=== PATIENT | female | born 1950 | race Caucasian/White ===

== ENCOUNTER → 2017-07-29 | Outpatient (CLI) | payer MEDICARE, OTHER ==
--- NOTE | 2017-07-29 16:26 | US ---
EXAMINATION TYPE: US kidneys/renal and bladder DATE OF EXAM: 07/29/2017 COMPARISON: NONE CLINICAL HISTORY: Chronic Kidney Disease Stage 3 N18.3; diabetic EXAM MEASUREMENTS: Right Kidney: 10.1 x 5.6 x 4.0 cm Left Kidney: 10.0 x 5.4 x 4.1 cm Post Void Residual Volume: 0.8 mL Right Kidney: lateral mid pole cortical cyst = 0.6 x 0.6 x 0.5cm Left Kidney: medial mid pole cyst = 1.3 x 0.9 x 0.8cm Bladder: not fully distended Bilateral Jets seen: Yes Normal Post Void Residual: Yes There is no evidence for hydronephrosis at this point in time. No nephrolithiasis is seen. The urina ry bladder is anechoic. Bilateral ureteral jets are seen. Cortical medullary differentiation is maintained. No cortical thinning. IMPRESSION: Bilateral renal cysts without sonographic evidence of medical renal disease.
== END | disposition home or self-care (01) ==
LOC: RADUSWWP 15:37
PROVIDERS: ATTEND Internal Medicine Nephrology
DX: N28.1 Cyst of kidney, acquired (principal); N18.3 Chronic kidney disease, stage 3 (moderate)
CPT/HCPCS: 76770

== ENCOUNTER → 2018-04-13 | Outpatient (CLI) | payer MEDICARE, OTHER ==
--- NOTE | 2018-04-13 15:55 | US ---
EXAMINATION TYPE: US kidneys/renal and bladder DATE OF EXAM: 04/13/2018 COMPARISON: US 07/29/2017 CLINICAL HISTORY: N18.3 chronic kidney disease stage 3. Chronic kidney disease EXAM MEASUREMENTS: Right Kidney: 10.4 x 4.8 x 5.4 cm Left Kidney: 9.2 x 4.3 x 5.1 cm Right Kidney: no evidence of hydro, small probable cyst as seen on prior= 0.7 x 0.6 x 0.6 cm . Cortic al medullary differentiation is diminished. There is mild cortical thinning. Left Kidney: No evidence of hydro, cyst mid/medial as seen on prior= 1.4 x 0.8 x 1.2 cm. Cortical med ullary differentiation is diminished. There is mild cortical thinning. Bladder: wnl Bilateral Jets seen: Yes There is no evidence for hydronephrosis at this point in time. No nephrolithiasis is seen. The urina ry bladder is anechoic. Bilateral ureteral jets are seen. IMPRESSION: 1. No hydronephrosis or nephrolithiasis. 2. Sonographic sequela of medical renal disease, left renal cyst and probable right renal cyst as see n on the prior exam, similar in size.
== END | disposition home or self-care (01) ==
LOC: RADUSWWP 12:44
PROVIDERS: ATTEND Internal Medicine Nephrology
DX: N28.1 Cyst of kidney, acquired (principal); N18.3 Chronic kidney disease, stage 3 (moderate)
CPT/HCPCS: 76770

== ENCOUNTER → 2020-08-13 | Outpatient (CLI) | payer MEDICARE, OTHER ==
--- NOTE | 2020-08-13 14:00 | XR ---
Left foot HISTORY: Pain 3 views the left foot There is mild medial angulation of the first digit at the metatarsophalangeal joint. Bone mineralizat ion is mildly reduced. Mild joint space loss at the metatarsophalangeal joint with some hypertrophic change. No fracture or dislocation. IMPRESSION: Osteoarthritic changes.
== END | disposition home or self-care (01) ==
LOC: RADXRMAIN 10:38
PROVIDERS: ATTEND Podiatrist Foot Surgery
DX: M19.072 Primary osteoarthritis, left ankle and foot (principal); M20.32 Hallux varus (acquired), left foot

== ENCOUNTER 2020-10-13 14:24 | Inpatient (IN) | payer MEDICARE, OTHER ==
[2020-10-13] MEDS ORDERED: ACETAMINOPHEN TAB 500 MG TAB PO STA (15:24)
[2020-10-13] MEDS ORDERED: ALBUTEROL HFA INHALER INHALATION STA (15:24)
[2020-10-13] MEDS ORDERED: SODIUM CHLORIDE 0.9% 500 ML 500 ML IV STA (15:25)
[2020-10-13] MEDS ORDERED: SODIUM CHLORIDE 0.9% 1,000 ML IV STA (15:25)
[2020-10-13] MEDS ORDERED: IBUPROFEN 800 MG TAB PO STA (15:25)
--- NOTE | 2020-10-13 15:29 | ED ---
Fever HPI - General Chief Complaint: Shortness of Breath Stated Complaint: Fever,SOB Time Seen by Provider: 10/13/20 15:20 Source: patient, RN notes reviewed, old records reviewed Mode of arrival: ambulatory Limitations: no limitations - History of Present Illness Initial Comments: This is a 70-year-old female DF for evaluation. Patient sent in today for 2-3 days of fever increasing weakness body aches and pains also shortness of breath and cough cough has been increasing. Patient's is a known covert positive. Ptient has history of CA, HTN, Hypercholesteremia. MD Complaint: fever, malaise, weakness Temperature Source: subjective Context: multiple patients with similar symptoms Associated Symptoms: chills, rigors, myalgias, cough Treatments Prior to Arrival: Acetaminophen, Ibuprofen - Related Data Home Medications Medication Instructions Recorded Confirmed Atorvastatin Calcium [Lipitor] 20 mg PO HS 05/03/14 04/12/16 FLUoxetine HCL [PROzac] 40 mg PO DAILY 05/03/14 04/12/16 Fenofibrate Nanocrystallized 145 mg PO DAILY 05/03/14 04/12/16 [Tricor] Mesalamine [Delzicol] 800 mg PO TID 05/03/14 04/12/16 Metoprolol Succinate [Toprol XL] 25 mg PO DAILY 05/03/14 04/12/16 OLANZapine [ZyPREXA] 5 mg PO BID 05/03/14 04/12/16 Triamterene-Hctz 37.5-25Mg 1 each PO DAILY 05/03/14 04/12/16 [Dyazide 37.5-25 Capsule] clonazePAM [KlonoPIN] 0.5 mg PO TID 05/03/14 04/12/16 glipiZIDE [Glucotrol] 10 mg PO AC-BID 05/03/14 04/12/16 metFORMIN HCL [Glucophage] 500 mg PO BID 11/26/14 04/12/16 Ergocalciferol [Vitamin D2 50,000 unit PO QMONTH 12/06/14 04/12/16 (DRISDOL)] Magnesium 400 mg PO DAILY 12/06/14 04/12/16 Cinacalcet [Sensipar] 30 mg PO WEEKLY 12/31/15 04/12/16 Multivitamins, Thera [Multivitamin] 1 tab PO DAILY 12/31/15 04/12/16 Insulin Glargine [Lantus] 16 unit SQ BID 04/12/16 04/12/16 Allergies Allergy/AdvReac Type Severity Reaction Status Date / Time No Known Allergies Allergy Verified 04/12/16 09:35 Review of Systems ROS Statement: Those systems with pertinent positive or pertinent negative responses have been documented in the HPI. ROS Other: All systems not noted in ROS Statement are negative. Past Medical History Past Medical History: Cancer, Diabetes Mellitus, Eye Disorder, Hyperlipidemia, Hypertension Additional Past Medical History / Comment(s): HX COLITIS, BREAST CANCER, GLASSES DAILY USE History of Any Multi-Drug Resistant Organisms: None Reported Past Surgical History: Breast Surgery, Cholecystectomy, Hysterectomy, Joint Replacement Additional Past Surgical History / Comment(s): 12/06/14 Total L knee arthroplasty. ADIS MASTECTOMY Past Anesthesia/Blood Transfusion Reactions: No Reported Reaction Past Psychological History: Anxiety, Depression Past Alcohol Use History: None Reported Past Drug Use History: None Reported - Past Family History Sister(s) Family Medical History: Myocardial Infarction ([place]) Additional Family Medical History / Comment(s): TWO SISTERS HAD AN [place] Father Family Medical History: Cancer Additional Family Medical History / Comment(s): Father of stomach cancer. Mother Family Medical History: COPD Additional Family Medical History / Comment(s): Mother of emphysema. General Exam Limitations: no limitations General appearance: alert, in no apparent distress Head exam: Present: atraumatic, normocephalic, normal inspection Eye exam: Present: normal appearance, PERRL, EOMI. Absent: scleral icterus, conjunctival injection, periorbital swelling ENT exam: Present: normal exam, mucous membranes moist Neck exam: Present: normal inspection. Absent: tenderness, meningismus, lymphadenopathy Respiratory exam: Present: normal lung sounds bilaterally, respiratory distress, decreased breath sounds, prolonged expiratory. Absent: wheezes, rales, rhonch i, stridor Cardiovascular Exam: Present: normal rhythm, tachycardia, normal heart sounds. Absent: systolic murmur, diastolic murmur, rubs, gallop, clicks GI/Abdominal exam: Present: soft, normal bowel sounds. Absent: distended, tenderness, guarding, rebound, rigid Extremities exam: Present: normal inspection, full ROM, normal capillary refill. Absent: tenderness, pedal edema, joint swelling, calf tenderness Back exam: Present: normal inspection Neurological exam: Present: alert, oriented X3, CN II-XII intact Psychiatric exam: Present: normal affect, normal mood Skin exam: Present: warm, dry, intact, normal color. Absent: rash Course Vital Signs 10/13/20 10/13/20 10/13/20 14:25 16:17 16:25 Temperature 103.1 F H Pulse Rate 114 H 96 Respiratory 18 22 20 Rate Blood Pressure 145/79 110/67 O2 Sat by Pulse 89 L 93 L Oximetry - Reevaluation(s) Reevaluation #1: 10/13/20 16:35 medical record is reviewed Reevaluation #2: 10/13/20 16:35 patient is in no respiratory distress Reevaluation #3: 10/13/20 16:35 spoke w patient re results and findins, questions answered - Consultations Consultation #1: spoke w Dr Rodriguez re admission and he is agreeable Medical Decision Making - Medical Decision Making 70 female DF for evaluation. Patient Dese for evaluation of shortness of breath and persistent fevers does have coronavirus. Patient has borderline oxygen in the 90s, will admit for coronavirus - Lab Data Result diagrams: 10/13/20 16:00 10/13/20 16:00 Lab Results 10/13/20 10/13/20 Range/Units 16:00 16:00 WBC 4.4 (3.8-10.6) k/uL RBC 4.77 (3.80-5.40) m/uL Hgb 13.5 (11.4-16.0) gm/dL Hct 41.7 (34.0-46.0) % MCV 87.3 (80.0-100.0) fL MCH 28.2 (25.0-35.0) pg MCHC 32.3 (31.0-37.0) g/dL RDW 13.8 (11.5-15.5) % Plt Count 373 (150-450) k/uL MPV 6.9 Neutrophils % 72 % Lymphocytes % 18 % Monocytes % 7 % Eosinophils % 0 % Basophils % 1 % Neutrophils # 3.2 (1.3-7.7) k/uL Lymphocytes # 0.8 L (1.0-4.8) k/uL Monocytes # 0.3 (0-1.0) k/uL Eosinophils # 0.0 (0-0.7) k/uL Basophils # 0.1 (0-0.2) k/uL Sodium 134 L (137-145) mmol/L Potassium 4.2 (3.5-5.1) mmol/L Chloride 95 L (98-107) mmol/L Carbon Dioxide 28 (22-30) mmol/L Anion Gap 11 mmol/L BUN 38 H (7-17) mg/dL Creatinine 1.56 H (0.52-1.04) mg/dL Est GFR (CKD-EPI)AfAm 38 (>60 ml/min/1.73 sqM) Est GFR (CKD-EPI)NonAf 33 (>60 ml/min/1.73 sqM) Glucose 334 H (74-99) mg/dL Calcium 9.9 (8.4-10.2) mg/dL Magnesium 1.5 L (1.6-2.3) mg/dL Total Bilirubin 0.5 (0.2-1.3) mg/dL AST 36 (14-36) U/L ALT 15 (4-34) U/L Alkaline Phosphatase 58 (38-126) U/L Lactate Dehydrogenase 672 H (313-618) U/L C-Reactive Protein 76.4 H (<10.0) mg/L Total Protein 7.4 (6.3-8.2) g/dL Albumin 4.2 (3.5-5.0) g/dL - EKG Data -: EKG Interpreted by Me (EKG shows sinus tachycardia 110 AL 154 QRS 104 QTc 479) - Radiology Data Radiology results: report reviewed (CXR is negative for acute disease, CTa is pending), image reviewed Disposition Clinical Impression: Fever, Coronavirus infection, Weakness Disposition: ADMITTED IP TO THIS HOSP Condition: Fair Is patient prescribed a controlled substance at d/c from ED?: No Referrals: Cabrera Persaud DO [Primary Care Provider] - 1-2 days
[2020-10-13 16:10] LABS: Basophils # (A) 0.1 k/uL (0-0.2); Basophils % (A) 1 %; Eosinophils % (A) 0 %; HCT 41.7 % (34.0-46.0); HGB 13.5 gm/dL (11.4-16.0); Lymphocytes # (A) 0.8 k/uL (1.0-4.8); Lymphocytes % (A) 18 %; MCH 28.2 pg (25.0-35.0); MCHC 32.3 g/dL (31.0-37.0); MCV 87.3 fL (80.0-100.0); Mean Platelet Volume 6.9; Monocytes # (A) 0.3 k/uL (0-1.0); Monocytes % (A) 7 %; Neutrophils # (A) 3.2 k/uL (1.3-7.7); Neutrophils % (A) 72 %; Platelet Count 373 k/uL (150-450); RBC 4.77 m/uL (3.80-5.40); RDW 13.8 % (11.5-15.5); WBC 4.4 k/uL (3.8-10.6)
[2020-10-13 16:16] LABS: Albumin 4.2 g/dL (3.5-5.0); C Reactive Protein 76.4 mg/L (<10.0); Calcium 9.9 mg/dL (8.4-10.2); Magnesium 1.5 mg/dL (1.6-2.3); Potassium 4.2 mmol/L (3.5-5.1); Total Bilirubin 0.5 mg/dL (0.2-1.3); Total Protein 7.4 g/dL (6.3-8.2)
--- NOTE | 2020-10-13 16:16 | XR ---
EXAMINATION TYPE: XR chest 1V portable DATE OF EXAM: 10/13/2020 COMPARISON: 04/12/2016 INDICATION: Suspected Covid 19 pneumonia, short of breath TECHNIQUE: Single frontal view of the chest is obtained. FINDINGS: The heart size is enlarged. The pulmonary vasculature is normal. Some minimal infiltrate may be at the lung bases. Consider atypical pneumonia as well as subsegmental atelectasis. IMPRESSION: 1. Bibasilar mild lung infiltrates most likely on the basis of atelectasis. Atypical pneumonia would remain within the differential.
[2020-10-13 16:30] LABS: Partial Thromboplastin Time 31.4 sec (22.0-30.0); Prothrombin Time 10.2 sec (9.0-12.0)
[2020-10-13 16:32] LABS: D-Dimer 0.62 mg/L FEU (<0.60)
[2020-10-13] MEDS ORDERED: ALBUTEROL HFA INHALER INHALATION SCH (20:00)
[2020-10-14] MEDS ORDERED: ALBUTEROL HFA INHALER INHALATION PRN (00:18)
[2020-10-14] MEDS: SODIUM CHLORIDE 0.9% 1,000 ML IV SCH ×4 (00:23→23:39)
[2020-10-14 00:26] LABS: Ferritin 354.6 ng/mL (10.0-291.0)
[2020-10-14] MEDS: ALBUTEROL HFA INHALER INHALATION SCH ×4 (07:18→22:23)
--- NOTE | 2020-10-14 08:27 | XR ---
EXAMINATION TYPE: XR chest 1V portable DATE OF EXAM: 10/14/2020 COMPARISON: Prior chest x-ray 10/13/2020 HISTORY: Pneumonia TECHNIQUE: Single frontal view of the chest is obtained. FINDINGS: There is some interval improved visualization of the right costophrenic angle. Technique i s limited likely due to patient body habitus. Heart appears enlarged although technique is apical tabatha dotic. No evident pneumothorax. Difficult to exclude perihilar, basilar opacity. Pulmonary vascularit y and eliecer show similar appearance. IMPRESSION: Exam is limited technically. There may be some underlying airspace disease. Heart is at the upper limit of normal.
[2020-10-14] MEDS ORDERED: ENOXAPARIN 40 MG/0.4 ML SYRINGE SQ SCH (09:00)
[2020-10-14] MEDS: ACETAMINOPHEN TAB 325 MG TAB PO PRN ×2 (10:02→16:13)
[2020-10-14 11:48] LABS: Glucose,Whole Blood 260 mg/dL (75-99)
[2020-10-14] MEDS: FENOFIBRATE 160 MG TAB PO SCH (13:25)
[2020-10-14] MEDS: FLUoxetine HCL 20 MG CAP PO SCH (13:26)
[2020-10-14] MEDS: METOPROLOL SUCCINATE (ER) 25 MG TAB.ER.24H PO SCH (13:26)
[2020-10-14] MEDS: allopurinoL 100 MG TAB PO SCH (13:26)
[2020-10-14] MEDS: BALSALAZIDE DISODIUM 750 MG CAPSULE PO SCH ×3 (13:26→21:16)
[2020-10-14] MEDS: clonazePAM 0.5 MG TAB PO SCH ×2 (13:26→21:16)
[2020-10-14] MEDS: INSULIN DETEMIR (LEVEMIR) 100 UNIT/ML SYR SQ SCH (13:27)
[2020-10-14] MEDS: OLANZapine 5 MG TAB PO SCH ×2 (13:27→21:16)
[2020-10-14] MEDS: INSULIN ASPART (NovoLOG) 100 UNIT/ML VIAL SQ SCH ×3 (13:48→21:16)
[2020-10-14] MEDS: ASCORBIC ACID 500 MG TAB PO SCH (15:41)
[2020-10-14] MEDS: ZINC SULFATE 220 MG CAP PO SCH (15:41)
[2020-10-14] MEDS: methylPREDNISolone SOD SUCCI 40 MG/ML 1 ML VIAL IV SCH ×2 (15:42→23:38)
--- NOTE | 2020-10-14 16:13 | P.CNPUL ---
History of Present Illness Consult date: 10/14/20 Reason for consult: dyspnea Chief complaint: Shortness of breath, fever, COVID 19 History of present illness: 70-year-old white female patient of Dr. Persaud, with past medical history of hypertension, hypercholesterolemia, anxiety, depression, breast cancer status post bilateral mastectomy, osteoarthritis who presented to the emergency department on 10/13/2020 for evaluation of increasing weakness, body aches and pains, and shortness of breath and cough. Apparently her was diagnosed with COVID 19. Chest x-ray was completed showing bibasilar mild lung infiltrates. She was started for COVID 19 and was found to be positive. She's been afebrile while in the hospital, with a T-max of 11.5F, she is currently on 2 L of oxygen with pulse ox of 94%, slightly tachycardic, in sinus mechanism. Admission labs have been reviewed showing white blood cell count of 4.4, hemoglobin of 13.5, leukocyte, 0.8, d-dimer of 0.62, sodium of 134, potassium is 4.2, chloride is 95, B1 of 30, creatinine is 1.56, glucose is 334, plasma lactic acid was mildly elevated at 2.3, LDH was 672, CRP was 76.4, LFTs were within normal limits, pro-calcitonin came back at 0.53. She was fluid resuscitated, she received 500 mL and fluid bolus, and received another liter over several hours, currently IV fluids infusing and rate of 100 ML per hour, lactic acidosis has improved. The patient has been started on Lovenox 100 mg subcutaneously at bedtime, and IV steroids at 40 mg every 8 hours. Review of Systems All systems: negative Constitutional: Reports fatigue, Reports weakness, Denies chills, Denies fever Eyes: denies blurred vision, denies pain Ears, nose, mouth and throat: Denies headache, Denies sore throat Cardiovascular: Denies chest pain, Denies shortness of breath Respiratory: Reports cough, Reports dyspnea Gastrointestinal: Denies abdominal pain, Denies diarrhea, Denies nausea, Denies vomiting Genitourinary: Denies dysuria, Denies hematuria Musculoskeletal: Denies myalgias Integumentary: Denies pruritus, Denies rash Neurological: Denies numbness, Denies weakness Psychiatric: Denies anxiety, Denies depression Endocrine: Denies fatigue, Denies weight change Past Medical History Past Medical History: Cancer, Diabetes Mellitus, Hyperlipidemia, Hypertension, Osteoarthritis (OA), Pneumonia Additional Past Medical History / Comment(s): Pt covid + 10/14/20 [facility] ER, IDDM type II, neuropathy bilateral legs/feet, pt states she was seeing Dr. Marie in the past d/t kidney problem but no longer needs to see her, hypercalcemia, bilateral breast cancer with bilateral mastectomies, colitis, IBS, diverticular disease, chronic pain/arthritis in lower back/R knee/bilateral feet, utis, past bronchitis. History of Any Multi-Drug Resistant Organisms: None Reported Past Surgical History: Breast Surgery, Hysterectomy, Joint Replacement, Tonsillectomy Additional Past Surgical History / Comment(s): Bilateral mastectomies, total L knee arthroplasty, colonoscopies, bilateral cataract removals/lens implants. Past Anesthesia/Blood Transfusion Reactions: No Reported Reaction Past Psychological History: Anxiety, Depression Additional Psychological History / Comment(s): Pt resides in a one level home. Pt is independent. Pt does not drive but takes her to her appointments. Smoking Status: Former smoker Past Alcohol Use History: None Reported Additional Past Alcohol Use History / Comment(s): Pt atarted smoking in 1965 and quit in 2005. Past Drug Use History: None Reported - Past Family History Sister(s) Family Medical History: Myocardial Infarction ([place]) Additional Family Medical History / Comment(s): TWO SISTERS HAD AN [place] Father Family Medical History: Cancer Additional Family Medical History / Comment(s): Father of stomach cancer. Mother Family Medical History: COPD Additional Family Medical History / Comment(s): Mother of emphysema. Medications and Allergies Home Medications Medication Instructions Recorded Confirmed Type FLUoxetine HCL [PROzac] 40 mg PO DAILY 05/03/14 10/13/20 History Fenofibrate Nanocrystallized 145 mg PO DAILY 05/03/14 10/13/20 History [Tricor] Mesalamine [Delzicol] 800 mg PO TID 05/03/14 10/13/20 History Metoprolol Succinate [Toprol XL] 12.5 mg PO DAILY 05/03/14 10/13/20 History OLANZapine [ZyPREXA] 5 mg PO BID 05/03/14 10/13/20 History clonazePAM [KlonoPIN] 0.5 mg PO TID 05/03/14 10/13/20 History Ergocalciferol [Vitamin D2 50,000 unit PO TH 12/06/14 10/13/20 History (DRISDOL)] Cinacalcet [Sensipar] 30 mg PO DIRECTED 12/31/15 10/13/20 History Insulin Glargine [Lantus] 50 unit SQ DAILY 04/12/16 10/13/20 History Allopurinol [Zyloprim] 100 mg PO DAILY 10/13/20 10/13/20 History Furosemide [Lasix] 40 mg PO DAILY 10/13/20 10/13/20 History INSULIN LISPRO (humaLOG) [humaLOG] 6 units SQ BID 10/13/20 10/13/20 History Pioglitazone [Actos] 15 mg PO DAILY 10/13/20 10/13/20 History Allergies Allergy/AdvReac Type Severity Reaction Status Date / Time No Known Allergies Allergy Verified 10/13/20 16:36 Physical Exam Vitals: Vital Signs Temp Pulse Pulse Resp BP BP Pulse Ox 10/14/20 12:50 101.0 F H 106 H 18 126/61 94 L 10/14/20 11:19 99.1 F 10/14/20 09:00 101.5 F H 115 H 18 170/89 95 10/14/20 05:59 98.9 F 90 18 161/71 96 10/14/20 01:14 97.9 F 60 19 112/54 95 10/13/20 23:00 63 18 95 10/13/20 22:00 67 18 98/58 93 L 10/13/20 21:00 77 20 93 L 10/13/20 20:00 97.8 F 75 18 107/68 98 10/13/20 17:38 100.4 F H 92 20 135/74 96 10/13/20 16:25 96 20 110/67 93 L 10/13/20 16:17 22 Intake and Output 10/14/20 10/14/20 10/14/20 06:59 14:59 22:59 Other: Voiding Method Bedside Commode Weight 107.501 kg GENERAL EXAM: Alert, very pleasant, 70-year-old white female, on 2 L of oxygen and pulse ox 95%, comfortable in no apparent distress. HEAD: Normocephalic/atraumatic. EYES: Normal reaction of pupils, equal size. Conjunctiva pink, sclera white. NOSE: Clear with pink turbinates. THROAT: No erythema or exudates. NECK: No masses, no JVD, no thyroid enlargement, no adenopathy. CHEST: No chest wall deformity. Symmetrical expansion. LUNGS: Equal air entry with diffuse crackles, congested cough CVS: Regular rate and rhythm, normal S1 and S2, no gallops, no murmurs, no rubs ABDOMEN: Soft, nontender. No hepatosplenomegaly, normal bowel sounds, no guarding or rigidity. EXTREMITIES: No clubbing, no edema, no cyanosis, 2+ pulses and upper and lower extremities. MUSCULOSKELETAL: Muscle strength and tone normal. SPINE: No scoliosis or deformity SKIN: No rashes CENTRAL NERVOUS SYSTEM: Alert and oriented -3. No focal deficits, tone is normal in all 4 extremities. PSYCHIATRIC: Alert and oriented -3. Appropriate affect. Intact judgment and insight. Results - Laboratory Findings CBC and BMP: 10/13/20 16:00 10/13/20 16:00 PT/INR, D-dimer PT 10.2 sec (9.0-12.0) 10/13/20 16:00 INR 1.0 (<1.2) 10/13/20 16:00 D-Dimer 0.62 mg/L FEU (<0.60) H 10/13/20 16:00 Abnormal lab findings: Abnormal Labs 10/13/20 10/13/20 10/13/20 16:00 16:00 16:00 Lymphocytes # 0.8 L APTT 31.4 H D-Dimer 0.62 H Sodium 134 L Chloride 95 L BUN 38 H Creatinine 1.56 H Glucose 334 H POC Glucose (mg/dL) Plasma Lactic Acid Syd Magnesium 1.5 L Ferritin 354.6 H Lactate Dehydrogenase 672 H C-Reactive Protein 76.4 H Procalcitonin Coronavirus (PCR) 10/13/20 10/13/20 10/13/20 16:00 16:00 16:31 Lymphocytes # APTT D-Dimer Sodium Chloride BUN Creatinine Glucose POC Glucose (mg/dL) Plasma Lactic Acid Syd 2.3 H* Magnesium Ferritin Lactate Dehydrogenase C-Reactive Protein Procalcitonin 0.53 H Coronavirus (PCR) Detected A 10/14/20 11:46 Lymphocytes # APTT D-Dimer Sodium Chloride BUN Creatinine Glucose POC Glucose (mg/dL) 260 H Plasma Lactic Acid Syd Magnesium Ferritin Lactate Dehydrogenase C-Reactive Protein Procalcitonin Coronavirus (PCR) - Diagnostic Findings Chest x-ray: report reviewed, image reviewed Assessment and Plan Plan: Assessment: #1. Acute hypoxic respiratory failure related to cold 19-related pneumonitis #2. Possibility of bacterial infection to be ruled out, procalcitonin level is elevated at 0.53, will cover the patient with empiric antibiotic #3. Elevated d-dimer patient's covered with prophylactic dose of Lovenox #4. Shortness of breath, cough, fever, related to quit 19 pneumonia, rule out possibility of bacterial superinfection #5. Acute kidney injury #6. Mild lactic acidosis, improved with fluid resuscitation #7. Elevated inflammatory markers related to COVID 19 infection #8. History of breast cancer status post bilateral mastectomy #9. Hypertension #10. Hyperlipidemia #11. Anxiety and depression Plan: Continue current medical treatment, continue steroids, we'll adjust the dose of Lovenox to 40 mg daily, will add Augmentin for empiric antibiotic coverage, continue with vitamin C, vitamin supplement, Pepcid, continue fluid resuscitation, lactic acid has improved, blood pressure stable, we'll continue to closely follow, monitor febrile pattern, monitor oxygenation pattern, we'll continue to follow I performed a history & physical examination of the patient and discussed their management with my nurse practitioner, Carlie Holly. I reviewed the nurse pr actitioner's note and agree with the documented findings and plan of care. Lung sounds are positive for congestive cough bibasilar crackles. The findings and the impression was discussed with the patient. I attest to the documentation by the nurse practitioner. Time with Patient: Greater than 30
[2020-10-14 17:27] LABS: Glucose,Whole Blood 119 mg/dL (75-99)
[2020-10-14] MEDS ORDERED: IBUPROFEN 200 MG TAB PO PRN (17:51)
[2020-10-14] MEDS ORDERED: ALPRAZolam 0.25 MG TAB PO PRN (20:30)
[2020-10-14] MEDS ORDERED: MAGNESIUM HYDROXIDE 2,400 MG/10 ML CUP PO PRN (20:30)
[2020-10-14] MEDS ORDERED: ONDANSETRON 4 MG/2 ML VIAL IVP PRN (20:30)
[2020-10-14] MEDS ORDERED: MAG HYDROX/AL HYDROX/SIMETH 30 ML CUP PO PRN (20:30)
[2020-10-14] MEDS ORDERED: CALCIUM CARBONATE 500 MG CHEWABLE PO PRN (20:30)
[2020-10-14] MEDS ORDERED: LACTULOSE 20 GM/30 ML CUP PO PRN (20:30)
[2020-10-14] MEDS ORDERED: NALOXONE 0.4 MG/ML 1 ML VIAL IV PRN (20:30)
[2020-10-14] MEDS ORDERED: MELATONIN 3 MG TABLET PO PRN (20:30)
--- NOTE | 2020-10-14 20:33 | P.HPIM ---
History of Present Illness H&P Date: 10/14/20 Chief Complaint: Short of breath cough History of presenting complaint: Estil a very pleasant 70-year-old patient of Dr. Persaud. Chronic stable medical conditions include diabetes, hyperlipidemia, hypertension, primary osteoarthritis, peripheral neuropathy, bilateral breast cancer with bilateral mastectomy, IBS, diverticulosis, chronic low back arthritis. Anxiety depres levon. For 2 weeks patient been having respiratory symptoms that have been progressive. Has got a cough. Congestion the chest. Fever or chills. Loose stools. Headache no loss of taste or smell. Presented to ER. Tested positive for COVID Review of systems: GEN.: Fever and chills. Tired EYES: None HEENT: None NECK: None RESPIRATORY: As above] CARDIOVASCULAR: None GASTROINTESTINAL: Loose stools GENITOURINARY: None MUSCULOSKELETAL: Joint pains LYMPHATICS: None HEMATOLOGICAL: None PSYCHIATRY: None NEUROLOGICAL: None Past medical history to include: Diabetes mellitus type 2, hyperlipidemia, hypertension, osteoarthritis, peripheral neuropathy, bilateral breast cancer with bilateral mastectomies, IBS, diverticulosis, chronic low back pain and arthritis, anxiety depression Social history: . Smoked for 41 years stopped in 2005. Physical examination: VITAL SIGNS: 103.1, 114, 18, 145 with 79, 89% on room air GENERAL: BMI 43.3, laying in bed, tired. EYES: Pupils equal. Conjunctiva normal. HEENT: External appearance of nose and ears normal, oral cavity grossly normal. NECK: JVD not raised; masses not palpable. HEART: First and second heart sounds are normal; no edema. LUNGS: Respiratory rate increased, decreased breath sounds prolonged expirations and extremity crackles. ABDOMEN: Soft, nontender, liver spleen not palpable, no masses palpable. PSYCH: Alert and oriented x3; mood and affect anxiousl. MUSCULAR skeletal: Evidence of OA especially in the hands NEUROLOGICAL: Cranial nerves grossly intact; no facial asymmetry, power and sensation grossly intact. LYMPHATICS: No lymph nodes palpable in the axilla and neck INVESTIGATIONS, reviewed in the clinical context: White count 4.4 hemoglobin 13.5 platelets 373 decreased lymphocytes at 0.8 D-dimer 0.62 sodium 134 potassium 4.2 bun 38 creatinine 1.56 Lactic acid 2.3 ferritin 354 LDH 672 CRP 76.4 pro-calcitonin 0.53 Coronavirus P/Cr-detected EKG tracing personally reviewed by me-sinus rhythm with some nonspecific T-wave changes Chest x-ray film personally reviewed by me-portable, possible infiltrate Assessment: -COVID 19 pneumonia -Severe sepsis from above -Acute hypoxic respiratory failure from pneumonia -Acute COPD exacerbation in an ex-smoker -Morbid obesity BMI 43.3 -Diabetes mellitus type 2 on oral hypoglycemic -Hyperlipidemia -Essential hypertension -Primary osteoarthritis -Diabetic peripheral neuropathy -Chronic kidney disease stage III from diabetic nephropathy and hypertensive nephrosclerosis Plan: Patient is placed on Ventolin inhalers, will add Spiriva. Patient also patient IV Solu-Medrol, Lovenox. Care was discussed with the patient. Questions answered. Accu-Cheks will be followed. Additionally zinc, vitamin D, vitamin C, Pepcid as added. Consultation made to pulmonary and ID. COVID 19 precautions Past Medical History Past Medical History: Cancer, Diabetes Mellitus, Hyperlipidemia, Hypertension, Osteoarthritis (OA), Pneumonia Additional Past Medical History / Comment(s): Pt covid + 10/14/20 [facility] ER, IDDM type II, neuropathy bilateral legs/feet, pt states she was seeing Dr. Marie in the past d/t kidney problem but no longer needs to see her, hypercalcemia, bilateral breast cancer with bilateral mastectomies, colitis, IBS, diverticular disease, chronic pain/arthritis in lower back/R knee/bilateral feet, utis, past bronchitis. History of Any Multi-Drug Resistant Organisms: None Reported Past Surgical History: Breast Surgery, Hysterectomy, Joint Replacement, Tonsillectomy Additional Past Surgical History / Comment(s): Bilateral mastectomies, total L knee arthroplasty, colonoscopies, bilateral cataract removals/lens implants. Past Anesthesia/Blood Transfusion Reactions: No Reported Reaction Past Psychological History: Anxiety, Depression Additional Psychological History / Comment(s): Pt resides in a one level home. Pt is independent. Pt does not drive but takes her to her appointments. Smoking Status: Former smoker Past Alcohol Use History: None Reported Additional Past Alcohol Use History / Comment(s): Pt atarted smoking in 1965 and quit in 2005. Past Drug Use History: None Reported - Past Family History Sister(s) Family Medical History: Myocardial Infarction ([place]) Additional Family Medical History / Comment(s): TWO SISTERS HAD AN [place] Father Family Medical History: Cancer Additional Family Medical History / Comment(s): Father of stomach cancer. Mother Family Medical History: COPD Additional Family Medical History / Comment(s): Mother of emphysema. Medications and Allergies Home Medications Medication Instructions Recorded Confirmed Type FLUoxetine HCL [PROzac] 40 mg PO DAILY 05/03/14 10/13/20 History Fenofibrate Nanocrystallized 145 mg PO DAILY 05/03/14 10/13/20 History [Tricor] Mesalamine [Delzicol] 800 mg PO TID 05/03/14 10/13/20 History Metoprolol Succinate [Toprol XL] 12.5 mg PO DAILY 05/03/14 10/13/20 History OLANZapine [ZyPREXA] 5 mg PO BID 05/03/14 10/13/20 History clonazePAM [KlonoPIN] 0.5 mg PO TID 05/03/14 10/13/20 History Ergocalciferol [Vitamin D2 50,000 unit PO TH 12/06/14 10/13/20 History (DRISDOL)] Cinacalcet [Sensipar] 30 mg PO DIRECTED 12/31/15 10/13/20 History Insulin Glargine [Lantus] 50 unit SQ DAILY 04/12/16 10/13/20 History Allopurinol [Zyloprim] 100 mg PO DAILY 10/13/20 10/13/20 History Furosemide [Lasix] 40 mg PO DAILY 10/13/20 10/13/20 History INSULIN LISPRO (humaLOG) [humaLOG] 6 units SQ BID 10/13/20 10/13/20 History Pioglitazone [Actos] 15 mg PO DAILY 10/13/20 10/13/20 History Allergies Allergy/AdvReac Type Severity Reaction Status Date / Time No Known Allergies Allergy Verified 10/13/20 16:36 Physical Exam Vitals: Vital Signs Temp Pulse Pulse Resp BP BP Pulse Ox 10/14/20 09:00 101.5 F H 115 H 18 170/89 95 10/14/20 05:59 98.9 F 90 18 161/71 96 10/14/20 01:14 97.9 F 60 19 112/54 95 10/13/20 23:00 63 18 95 10/13/20 22:00 67 18 98/58 93 L 10/13/20 21:00 77 20 93 L 10/13/20 20:00 97.8 F 75 18 107/68 98 10/13/20 17:38 100.4 F H 92 20 135/74 96 10/13/20 16:25 96 20 110/67 93 L 10/13/20 16:17 22 10/13/20 14:25 103.1 F H 114 H 18 145/79 89 L Results CBC & Chem 7: 10/13/20 16:00 10/13/20 16:00 Labs: Abnormal Lab Results - Last 24 Hours (Table) 10/13/20 10/13/20 10/13/20 Range/Units 16:00 16:00 16:00 Lymphocytes # 0.8 L (1.0-4.8) k/uL APTT 31.4 H (22.0-30.0) sec D-Dimer 0.62 H (<0.60) mg/L FEU Sodium 134 L (137-145) mmol/L Chloride 95 L (98-107) mmol/L BUN 38 H (7-17) mg/dL Creatinine 1.56 H (0.52-1.04) mg/dL Glucose 334 H (74-99) mg/dL Plasma Lactic Acid Syd (0.7-2.0) mmol/L Magnesium 1.5 L (1.6-2.3) mg/dL Ferritin 354.6 H (10.0-291.0) ng/mL Lactate Dehydrogenase 672 H (313-618) U/L C-Reactive Protein 76.4 H (<10.0) mg/L Procalcitonin (0.02-0.09) ng/mL Coronavirus (PCR) (Not Detectd) 10/13/20 10/13/20 10/13/20 Range/Units 16:00 16:00 16:31 Lymphocytes # (1.0-4.8) k/uL APTT (22.0-30.0) sec D-Dimer (<0.60) mg/L FEU Sodium (137-145) mmol/L Chloride (98-107) mmol/L BUN (7-17) mg/dL Creatinine (0.52-1.04) mg/dL Glucose (74-99) mg/dL Plasma Lactic Acid Syd 2.3 H* (0.7-2.0) mmol/L Magnesium (1.6-2.3) mg/dL Ferritin (10.0-291.0) ng/mL Lactate Dehydrogenase (313-618) U/L C-Reactive Protein (<10.0) mg/L Procalcitonin 0.53 H (0.02-0.09) ng/mL Coronavirus (PCR) Detected A (Not Detectd)
[2020-10-14] MEDS ORDERED: ENOXAPARIN 100 MG/ML SYRINGE SQ SCH (21:00)
[2020-10-14] MEDS: AMOXIC-POT CLAV 500-125 MG 1 EACH TAB PO SCH (21:15)
[2020-10-14] MEDS: FAMOTIDINE 20 MG TAB PO SCH (21:16)
[2020-10-14 21:20] LABS: Glucose,Whole Blood 257 mg/dL (75-99)
[2020-10-14] MEDS ORDERED: REMDESIVIR 200 MG in SODIUM CHLORIDE 0.9% 250 ML IVPB ONE (22:00)
--- NOTE | 2020-10-14 23:24 | P.CONS ---
History of Present Illness - Reason for Consult Consult date: 10/14/20 covid Requesting physician: Nickolas Crespo - Chief Complaint shortness of breath x 3 days - History of Present Illness Patient is a 70-year female presenting to the ER at [facility] yesterday for evaluation of generalized weakness body aches and pains shortness of breath and cough in this patient symptom has been going on the last 2 to 3 days before presentation to the hospital apparently the patient was diagnosed with a COVID-19 before she started having symptoms the patient denies having any chest pain shortness of breath on minimal exertion and even at rest cough is moderate intensity with occasional sputum no hemoptysis some na usea but no vomiting no abdominal pain or significant diarrhea with the symptom the patient was evaluated by ER physician on arrival to the ER the patient did have a fever of 103.1 degree for right patient was tachycardic and did have an O2 sats of 89% on room air is currently 93% on 2 L nasal cannula patient did have a Covid test came back positive patient did have lymphopenia with a normal white count elevated D-dimer procalcitonin was 0.53 LDH was 672 CRP 76.4 patient did have a chest x-ray with bibasilar mild lung infiltrate more likely to be cellulitis atypical pneumonia remains to be differential patient was admitted to the hospital infectious was consulted for further management of antibiotic therapy Review of Systems positive point has been mentioned in HPI rest of the systems are negative. Past Medical History Past Medical History: Cancer, Diabetes Mellitus, Hyperlipidemia, Hypertension, Osteoarthritis (OA), Pneumonia Additional Past Medical History / Comment(s): Pt covid + 10/14/20 [facility] ER, IDDM type II, neuropathy bilateral legs/feet, pt states she was seeing Dr. Marie in the past d/t kidney problem but no longer needs to see her, hypercalcemia, bilateral breast cancer with bilateral mastectomies, colitis, IBS, diverticular disease, chronic pain/arthritis in lower back/R knee/bilateral feet, utis, past bronchitis. History of Any Multi-Drug Resistant Organisms: None Reported Past Surgical History: Breast Surgery, Hysterectomy, Joint Replacement, Tonsillectomy Additional Past Surgical History / Comment(s): Bilateral mastectomies, total L knee arthroplasty, colonoscopies, bilateral cataract removals/lens implants. Past Anesthesia/Blood Transfusion Reactions: No Reported Reaction Past Psychological History: Anxiety, Depression Additional Psychological History / Comment(s): Pt resides in a one level home. Pt is independent. Pt does not drive but takes her to her appointments. Smoking Status: Former smoker Past Alcohol Use History: None Reported Additional Past Alcohol Use History / Comment(s): Pt atarted smoking in 1964 and quit in 2005. Past Drug Use History: None Reported - Past Family History Sister(s) Family Medical History: Myocardial Infarction ([place]) Additional Family Medical History / Comment(s): TWO SISTERS HAD AN [place] Father Family Medical History: Cancer Additional Family Medical History / Comment(s): Father of stomach cancer. Mother Family Medical History: COPD Additional Family Medical History / Comment(s): Mother of emphysema. Medications and Allergies Home Medications Medication Instructions Recorded Confirmed Type FLUoxetine HCL [PROzac] 40 mg PO DAILY 05/03/14 10/13/20 History Fenofibrate Nanocrystallized 145 mg PO DAILY 05/03/14 10/13/20 History [Tricor] Mesalamine [Delzicol] 800 mg PO TID 05/03/14 10/13/20 History Metoprolol Succinate [Toprol XL] 12.5 mg PO DAILY 05/03/14 10/13/20 History OLANZapine [ZyPREXA] 5 mg PO BID 05/03/14 10/13/20 History clonazePAM [KlonoPIN] 0.5 mg PO TID 05/03/14 10/13/20 History Ergocalciferol [Vitamin D2 50,000 unit PO TH 12/06/14 10/13/20 History (DRISDOL)] Cinacalcet [Sensipar] 30 mg PO DIRECTED 12/31/15 10/13/20 History Insulin Glargine [Lantus] 50 unit SQ DAILY 04/12/16 10/13/20 History Allopurinol [Zyloprim] 100 mg PO DAILY 10/13/20 10/13/20 History Furosemide [Lasix] 40 mg PO DAILY 10/13/20 10/13/20 History INSULIN LISPRO (humaLOG) [humaLOG] 6 units SQ BID 10/13/20 10/13/20 History Pioglitazone [Actos] 15 mg PO DAILY 10/13/20 10/13/20 History Allergies Allergy/AdvReac Type Severity Reaction Status Date / Time No Known Allergies Allergy Verified 10/13/20 16:36 Physical Exam Vitals: Vital Signs Temp Pulse Pulse Resp BP BP Pulse Ox 10/14/20 21:20 97.9 F 10/14/20 20:00 99.7 F H 86 20 142/69 93 L 10/14/20 16:00 93 L 10/14/20 12:50 101.0 F H 106 H 18 126/61 94 L 10/14/20 11:19 99.1 F 10/14/20 09:00 101.5 F H 115 H 18 170/89 95 10/14/20 05:59 98.9 F 90 18 161/71 96 10/14/20 01:14 97.9 F 60 19 112/54 95 Intake and Output 10/14/20 10/14/20 10/15/20 14:59 22:59 06:59 Intake Total 1000 Balance 1000 Intake: Intake, IV Titration 1000 Amount Sodium Chloride 0.9% 1, 1000 000 ml @ 100 mls/hr IV . Q10H [facility] Rx#:[id number] Other: Voiding Method Bedside Commode Bedside Commode Weight 107.501 kg GENERAL DESCRIPTION: Elderly female lying in bed, no distress. No tachypnea or accessory muscle of respiration use. HEENT: Shows Pallor , no scleral icterus. Oral mucous membrane is dry. NECK: Trachea central, no thyromegaly. LUNGS: Unlabored breathing. Coarse breath sounds at bases bilaterally. No wheeze or crackle. HEART: S1, S2, regular rate and rhythm. ABDOMEN: Soft, no tenderness , guarding or rigidity EXTREMITIES: No edema of feet. SKIN: No rash, no masses palpable. NEUROLOGICAL: The patient is awake, alert, oriented x3, mood and affect normal. Results CBC & Chem 7: 10/13/20 16:00 10/13/20 16:00 Labs: Abnormal Lab Results - Last 24 Hours (Table) 10/13/20 10/13/20 10/14/20 Range/Units 16:00 16:00 11:46 POC Glucose (mg/dL) 260 H (75-99) mg/dL Ferritin 354.6 H (10.0-291.0) ng/mL Procalcitonin 0.53 H (0.02-0.09) ng/mL 10/14/20 10/14/20 Range/Units 17:18 21:09 POC Glucose (mg/dL) 119 H 257 H (75-99) mg/dL Ferritin (10.0-291.0) ng/mL Procalcitonin (0.02-0.09) ng/mL Microbiology - Last 24 Hours (Table) 10/13/20 16:00 Blood Culture - Preliminary Blood No Growth after 24 hours Assessment and Plan Assessment: -patient presented to hospital with increasing shortness of breath cough congestion with evidence of bilateral infiltrate on chest x-ray fever hypoxemia and only 3 days onset of symptoms in this patient with acute COVID-19 pneumonia and to meet criteria for remdesivir (1) Coronavirus infection Current Visit: Yes Status: Acute Code(s): B34.2 - CORONAVIRUS INFECTION, UNSPECIFIED SNOMED Code(s): 085959369 Plan: 1-patient will be started on remdesivir 200 mg IV bag x1 followed by her milligr ams daily for 4 days 2-patient to continue with Solu-Medrol Lovenox and zinc sulfate. 3droplet isolation respiratory support We will follow on clinical condition and cultures to further adjust medication if needed Thank you for this consultation we will follow the patient along with you Time with Patient: Greater than 30
[2020-10-15 07:33] LABS: Glucose,Whole Blood 307 mg/dL (75-99)
[2020-10-15] MEDS: methylPREDNISolone SOD SUCCI 40 MG/ML 1 ML VIAL IV SCH ×2 (08:47→17:00)
[2020-10-15] MEDS: METOPROLOL SUCCINATE (ER) 25 MG TAB.ER.24H PO SCH (08:48)
[2020-10-15] MEDS: ZINC SULFATE 220 MG CAP PO SCH (08:48)
[2020-10-15] MEDS: FAMOTIDINE 20 MG TAB PO SCH (08:48)
[2020-10-15] MEDS: FLUoxetine HCL 20 MG CAP PO SCH (08:48)
[2020-10-15] MEDS: FENOFIBRATE 160 MG TAB PO SCH (08:48)
[2020-10-15] MEDS: ASCORBIC ACID 500 MG TAB PO SCH (08:48)
[2020-10-15] MEDS: ENOXAPARIN 40 MG/0.4 ML SYRINGE SQ SCH (08:49)
[2020-10-15] MEDS: clonazePAM 0.5 MG TAB PO SCH ×3 (08:49→21:00)
[2020-10-15] MEDS: allopurinoL 100 MG TAB PO SCH (08:49)
[2020-10-15] MEDS: AMOXIC-POT CLAV 500-125 MG 1 EACH TAB PO SCH ×2 (08:50→21:01)
[2020-10-15] MEDS: OLANZapine 5 MG TAB PO SCH ×2 (08:51→21:01)
[2020-10-15] MEDS: INSULIN DETEMIR (LEVEMIR) 100 UNIT/ML SYR SQ SCH (08:51)
[2020-10-15] MEDS: BALSALAZIDE DISODIUM 750 MG CAPSULE PO SCH ×3 (08:51→21:01)
[2020-10-15] MEDS: INSULIN ASPART (NovoLOG) 100 UNIT/ML VIAL SQ SCH ×4 (08:51→21:00)
[2020-10-15] MEDS: ALBUTEROL HFA INHALER INHALATION SCH ×4 (10:02→19:57)
[2020-10-15 11:24] LABS: Glucose,Whole Blood 235 mg/dL (75-99)
[2020-10-15 14:10] VITALS: BMI 43.3
[2020-10-15] MEDS: SODIUM CHLORIDE 0.9% 1,000 ML IV SCH (14:36)
--- NOTE | 2020-10-15 14:45 | P.PN ---
Subjective Progress Note Date: 10/15/20 Principal diagnosis: Acute hypoxic respiratory failure secondary to CoVID 19 pneumonitis 70-year-old white female patient of Dr. Persaud, with past medical history of hypertension, hypercholesterolemia, anxiety, depression, breast cancer status post bilateral mastectomy, osteoarthritis who presented to the emergency department on 10/13/2020 for evaluation of increasing weakness, body aches and pains, and shortness of breath and cough. Apparently her was diagnosed with COVID 19. Chest x-ray was completed showing bibasilar mild lung infiltrates. She was started for COVID 19 and was found to be positive. She's been afebrile while in the hospital, with a T-max of 11.5F, she is currently on 2 L of oxygen with pulse ox of 94%, slightly tachycardic, in sinus mechanism. Admission labs have been reviewed showing white blood cell count of 4.4, hemoglobin of 13.5, leukocyte, 0.8, d-dimer of 0.62, sodium of 134, potassium is 4.2, chloride is 95, B1 of 30, creatinine is 1.56, glucose is 334, plasma lactic acid was mildly elevated at 2.3, LDH was 672, CRP was 76.4, LFTs were within normal limits, pro-calcitonin came back at 0.53. She was fluid resuscitated, s he received 500 mL and fluid bolus, and received another liter over several hours, currently IV fluids infusing and rate of 100 ML per hour, lactic acidosis has improved. The patient has been started on Lovenox 100 mg subcutaneously at bedtime, and IV steroids at 40 mg every 8 hours. The patient is seen today 10/15/2020 and follow-up on the regular medical floor. She is currently awake and alert in no acute distress. Maintaining O2 saturation in the 90s on 2 L/m per nasal cannula. She's afebrile. Blood and sputum cultures reveal no growth. D-dimer 0.72. C-reactive protein 17.1. Blood glucose 235. This is day #2 of Remdesivir. She has 0.9 normal sinus ML's per hour. Remains on IV Solu-Medrol, Lovenox. Continued on vitamin C, vitamin D, zinc, Pepcid, melatonin. Empiric antibiotics in the form of Augmentin. Objective - Vital Signs Vital signs: Vital Signs Temp 97.5 F L 12/02/20 13:06 Pulse 77 10/15/20 13:06 Resp 19 10/15/20 13:06 BP 150/68 10/15/20 13:06 Pulse Ox 92 L 10/15/20 13:06 Intake & Output 10/14/20 10/15/20 10/15/20 18:59 06:59 18:59 Intake Total 1000 500 Balance 1000 500 Weight 107.501 kg 107.501 kg Intake: Intake, IV Titration 1000 Amount Sodium Chloride 0.9% 1, 1000 000 ml @ 100 mls/hr IV . Q10H [facility] Rx#:[id number] Oral 500 Other: Voiding Method Bedside Commode Bedside Commode Bedside Commode # Voids 1 # Bowel Movements 1 - Exam GENERAL EXAM: Alert, pleasant 70-year-old female patient, on 2 L nasal cannula, comfortable in no apparent distress. HEAD: Normocephalic. EYES: Normal reaction of pupils, equal size. NOSE: Clear with pink turbinates. THROAT: No erythema or exudates. NECK: No masses, no JVD. CHEST: No chest wall deformity. LUNGS: Equal air entry with few scattered rhonchi. CVS: S1 and S2 normal with no audible murmur, regular rhythm. ABDOMEN: No hepatosplenomegaly, normal bowel sounds, no guarding or rigidity. SPINE: No scoliosis or deformity SKIN: No rashes CENTRAL NERVOUS SYSTEM: No focal deficits, tone is normal in all 4 extremities. EXTREMITIES: There is no peripheral edema. No clubbing, no cyanosis. Peripheral pulses are intact. - Labs CBC & Chem 7: 10/13/20 16:00 10/13/20 16:00 Labs: Abnormal Lab Results - Last 24 Hours (Table) 10/14/20 10/14/20 10/15/20 Range/Units 17:18 21:09 05:53 D-Dimer 0.72 H (<0.60) mg/L FEU POC Glucose (mg/dL) 119 H 257 H (75-99) mg/dL C-Reactive Protein (0.0-0.8) mg/dL 10/15/20 10/15/20 10/15/20 Range/Units 05:53 07:11 11:18 D-Dimer (<0.60) mg/L FEU POC Glucose (mg/dL) 307 H 235 H (75-99) mg/dL C-Reactive Protein 17.1 H (0.0-0.8) mg/dL Microbiology - Last 24 Hours (Table) 10/13/20 20:15 Gram Stain - Preliminary Sputum Sputum Culture - Preliminary 10/13/20 16:00 Blood Culture - Preliminary Blood No Growth after 24 hours Assessment and Plan Assessment: 1 Acute hypoxic respiratory failure secondary to CoVID 19 pneumonitis 2 Possibility of bacterial infection to be ruled out, procalcitonin level is elevated at 0.53, will cover the patient with empiric antibiotic 3 Elevated d-dimer patient's covered with prophylactic dose of Lovenox 4 Shortness of breath, cough, fever, related to quit 19 pneumonia, rule out possibility of bacterial superinfection 5 Acute kidney injury 6 Mild lactic acidosis, improved with fluid resuscitation 7 Elevated inflammatory markers related to COVID 19 infection 8 History of breast cancer status post bilateral mastectomy 9 Hypertension 10 Hyperlipidemia 11 Anxiety and depression Plan: The patient was seen and evaluated by Dr. Levine Currently stable from the pulmonary standpoint Titrate the FiO2 as tolerated Continue Remdesivir, IV Solu-Medrol, Lovenox Continue vitamin supplements Continue Augmentin Repeat chest x-ray and inflammatory markers in a.m. We will continue to follow I, the cosigning physician, performed a history & physical examination of the patient. Lungs sounds with few scattered rhonchi. Maintaining good O2 saturations in the 90s on 2 L/m per nasal cannula. I discussed the assessment and plan of care with my nurse practitioner, Dolores Ross. I attest to the above n ote as dictated by her.
[2020-10-15 17:16] LABS: Glucose,Whole Blood 168 mg/dL (75-99)
[2020-10-15 20:49] LABS: Glucose,Whole Blood 201 mg/dL (75-99)
[2020-10-15] MEDS: REMDESIVIR 100 MG in SODIUM CHLORIDE 0.9% 250 ML IVPB SCH (21:00)
--- NOTE | 2020-10-15 22:40 | P.PN ---
Progress Note - Text Progress Note Date: 10/15/20 Chief Complaint: Short of breath cough History of presenting complaint: Isaiahil a very pleasant 70-year-old patient of Dr. Persaud. Chronic stable medical conditions include diabetes, hyperlipidemia, hypertension, primary osteoarthritis, peripheral neuropathy, bilateral breast cancer with bilateral mastectomy, IBS, diverticulosis, chronic low back arthritis. Anxiety depression. For 2 weeks patient been having respiratory symptoms that have been progressive. Has got a cough. Congestion the chest. Fever or chills. Loose stools. Headache no loss of taste or smell. Presented to ER. Tested positive for COVID Admitted with COVID 19 pneumonia, sepsis, acute hypoxic respiratory failure, acute COPD exacerbation. Started on IV Solu-Medrol, subcu Lovenox, IV Remdesivir, bronchodilator. Today-feeling tired. Oral intake improving. No fever today. Review of systems: Was done for constitutional, cardiovascular, GI, pulmonary. relevant finding as above Active Medications Acetaminophen (Acetaminophen Tab 325 Mg Tab) 650 mg PO Q4HR PRN PRN Reason: Fever and/ or Pain Last Admin: 10/14/20 16:13 Dose: 650 mg Documented by: Al Hydroxide/Mg Hydroxide (Mag Hydrox/Al Hydrox/Simeth 30 Ml Cup) 15 ml PO Q6HR PRN PRN Reason: Indigestion Albuterol Sulfate (Albuterol Hfa Inhaler) 1 puff INHALATION RT-TID PRN PRN Reason: Shortness Of Breath Or Wheezing Albuterol Sulfate (Albuterol Hfa Inhaler) 2 puff INHALATION RT-QID [facility] Last Admin: 10/15/20 19:57 Dose: 2 puff Documented by: Allopurinol (Allopurinol 100 Mg Tab) 100 mg PO DAILY [facility] Last Admin: 10/15/20 08:49 Dose: 100 mg Documented by: Alprazolam (Alprazolam 0.25 Mg Tab) 0.25 mg PO Q6HR PRN PRN Reason: Anxiety Amoxicillin/Clavulanate Potassium (Amoxic-Pot Clav 500-125 Mg 1 Each Tab) 1 each PO Q12HR [facility] Last Admin: 10/15/20 21:01 Dose: 1 each Documented by: Ascorbic Acid (Ascorbic Acid 500 Mg Tab) 500 mg PO DAILY [facility] Last Admin: 10/15/20 08:48 Dose: 500 mg Documented by: Balsalazide (Balsalazide Disodium 750 Mg Capsule) 2,250 mg PO TID [facility] Last Admin: 10/15/20 21:01 Dose: 2,250 mg Documented by: Calcium Carbonate/Glycine (Calcium Carbonate 500 Mg Chewable) 1,000 mg PO Q4HR PRN PRN Reason: Dyspepsia Clonazepam (Clonazepam 0.5 Mg Tab) 0.5 mg PO TID [facility] Last Admin: 10/15/20 21:00 Dose: 0.5 mg Documented by: Enoxaparin Sodium (Enoxaparin 40 Mg/0.4 Ml Syringe) 40 mg SQ DAILY [facility] Last Admin: 10/15/20 08:49 Dose: 40 mg Documented by: Ergocalciferol (Ergocalciferol 50,000 Unit Cap) 50,000 unit PO TH [facility] Famotidine (Famotidine 20 Mg Tab) 20 mg PO DAILY [facility] Fenofibrate (Fenofibrate 160 Mg Tab) 160 mg PO DAILY [facility] Last Admin: 10/15/20 08:48 Dose: 160 mg Documented by: Fluoxetine HCl (Fluoxetine Hcl 20 Mg Cap) 40 mg PO DAILY [facility] Last Admin: 10/15/20 08:48 Dose: 40 mg Documented by: Sodium Chloride (Saline 0.9%) 1,000 mls @ 100 mls/hr IV .Q10H [facility] Last Admin: 10/15/20 14:36 Dose: 100 mls/hr Documented by: Remdesivir 100 mg/ Sodium (Chloride) 250 mls @ 250 mls/hr IVPB [facility] Stop: 10/18/20 21:59 Last Admin: 10/15/20 21:00 Dose: 250 mls/hr Documented by: Ibuprofen (Ibuprofen 200 Mg Tab) 200 mg PO Q6HR PRN PRN Reason: Pain Last Admin: 10/14/20 19:41 Dose: 200 mg Documented by: Insulin Aspart (Insulin Aspart (Novolog) 100 Unit/Ml Vial) 0 unit SQ ACHS [facility]; Protocol Last Admin: 10/15/20 21:00 Dose: 4 unit Documented by: Insulin Detemir (Insulin Detemir (Levemir) 100 Unit/Ml Syr) 40 unit SQ DAILY@0700 [facility] Last Admin: 10/15/20 08:51 Dose: 40 unit Documented by: Lactulose (Lactulose 20 Gm/30 Ml Cup) 20 gm PO DAILY PRN PRN Reason: Constipation Magnesium Hydroxide (Magnesium Hydroxide 2,400 Mg/10 Ml Cup) 2,400 mg PO DAILY PRN PRN Reason: Constipation Melatonin (Melatonin 3 Mg Tablet) 3 mg PO HS PRN PRN Reason: Insomnia Methylprednisolone Sodium Succinate (Methylprednisolone Sod Succi 40 Mg/Ml 1 Ml Vial) 40 mg IV Q8HR [facility] Last Admin: 10/15/20 17:00 Dose: 40 mg Documented by: Metoprolol Succinate (Metoprolol Succinate (Er) 25 Mg Tab.Er.24h) 12.5 mg PO DAILY [facility] Last Admin: 10/15/20 08:48 Dose: 12.5 mg Documented by: Naloxone HCl (Naloxone 0.4 Mg/Ml 1 Ml Vial) 0.2 mg IV Q2M PRN PRN Reason: Opioid Reversal Olanzapine (Olanzapine 5 Mg Tab) 5 mg PO BID [facility] Last Admin: 10/15/20 21:01 Dose: 5 mg Documented by: Ondansetron HCl (Ondansetron 4 Mg/2 Ml Vial) 4 mg IVP Q8HR PRN PRN Reason: Nausea And Vomiting Zinc Sulfate (Zinc Sulfate 220 Mg Cap) 220 mg PO DAILY [facility] Last Admin: 10/15/20 08:48 Dose: 220 mg Documented by: Physical examination: VITAL SIGNS: 97.5, 77, 20, 150/68, 92% on 2 L GENERAL: BMI 43.3, laying in bed, tired. PSYCH: Alert and oriented x3; mood and affect less anxious. Rest of the exam per pulmonary and ID INVESTIGATIONS, reviewed in the clinical context: October 15: D-dimer 0.72, CRP 17.1 Previous testing White count 4.4 hemoglobin 13.5 platelets 373 decreased lymphocytes at 0.8 D-dimer 0.62 sodium 134 potassium 4.2 bun 38 creatinine 1.56 Lactic acid 2.3 ferritin 354 LDH 672 CRP 76.4 pro-calcitonin 0.53 Coronavirus P/Cr-detected EKG tracing personally reviewed by me-sinus rhythm with some nonspecific T-wave changes Chest x-ray film personally reviewed by me-portable, possible infiltrate Assessment: -COVID 19 pneumonia -Severe sepsis from above -Acute hypoxic respiratory failure from pneumonia -Acute COPD exacerbation in an ex-smoker -Morbid obesity BMI 43.3 -Diabetes mellitus type 2 on oral hypoglycemic -Hyperlipidemia -Essential hypertension -Primary osteoarthritis -Diabetic peripheral neuropathy -Chronic kidney disease stage III from diabetic nephropathy and hypertensive nephrosclerosis Plan: Continue IV Solu-Medrol, Lovenox. Also started on Remdesivir. Discussed with the patient. Follow with consultants
[2020-10-16] MEDS: methylPREDNISolone SOD SUCCI 40 MG/ML 1 ML VIAL IV SCH ×3 (00:11→16:05)
--- NOTE | 2020-10-16 01:10 | PN ---
PROGRESS NOTE DATE OF SERVICE: 10/15/2020 REASON FOR FOLLOWUP: Acute COVID-19 pneumonia. INTERVAL HISTORY: The patient is currently afebrile. The patient is feeling much better compared to yesterday. The patient is currently on 2 L nasal cannula. Denies having any chest pain or shortness of breath. Minimal cough. No nausea, no vomiting. No abdominal pain, no diarrhea. PHYSICAL EXAMINATION: Blood pressure 134/73 with a pulse of 83, temperature 98. She is 92% on 2 L nasal cannular. General description is an elderly female lying in bed in no distress. RESPIRATORY SYSTEM: Unlabored breathing, decreased breath sounds at the bases. No wheeze. HEART: S1, S2. Regular rate and rhythm. ABDOMEN: Soft, no tenderness. LABS: D-dimer 0.72. CRP is down to 17.1. Sputum pending. Blood culture so far negative. DIAGNOSTIC IMPRESSION AND PLAN: Patient with acute COVID-19 pneumonia in this patient currently being treated with Solu- Medrol, remdesivir, zinc, along with Lovenox to continue and respiratory support and monitor her clinical course closely. MMODL / IJN: [id number] /
[2020-10-16] MEDS: SODIUM CHLORIDE 0.9% 1,000 ML IV SCH ×3 (05:50→20:24)
[2020-10-16 07:16] LABS: Glucose,Whole Blood 183 mg/dL (75-99)
[2020-10-16] MEDS: ALBUTEROL HFA INHALER INHALATION SCH ×4 (08:00→19:33)
[2020-10-16] MEDS: INSULIN ASPART (NovoLOG) 100 UNIT/ML VIAL SQ SCH ×4 (08:00→21:54)
[2020-10-16] MEDS: INSULIN DETEMIR (LEVEMIR) 100 UNIT/ML SYR SQ SCH (08:00)
[2020-10-16] MEDS: FLUoxetine HCL 20 MG CAP PO SCH (08:01)
[2020-10-16] MEDS: FAMOTIDINE 20 MG TAB PO SCH (08:01)
[2020-10-16] MEDS: METOPROLOL SUCCINATE (ER) 25 MG TAB.ER.24H PO SCH (08:01)
[2020-10-16] MEDS: ENOXAPARIN 40 MG/0.4 ML SYRINGE SQ SCH (08:01)
[2020-10-16] MEDS: clonazePAM 0.5 MG TAB PO SCH ×3 (08:01→21:54)
[2020-10-16] MEDS: ZINC SULFATE 220 MG CAP PO SCH (08:02)
[2020-10-16] MEDS: AMOXIC-POT CLAV 500-125 MG 1 EACH TAB PO SCH ×2 (08:02→21:52)
[2020-10-16] MEDS: ASCORBIC ACID 500 MG TAB PO SCH (08:02)
[2020-10-16] MEDS: BALSALAZIDE DISODIUM 750 MG CAPSULE PO SCH ×3 (08:02→21:52)
[2020-10-16] MEDS: OLANZapine 5 MG TAB PO SCH ×2 (08:02→21:52)
[2020-10-16] MEDS: allopurinoL 100 MG TAB PO SCH (08:02)
[2020-10-16] MEDS: FENOFIBRATE 160 MG TAB PO SCH (08:02)
[2020-10-16] MEDS ORDERED: ERGOCALCIFEROL 50,000 UNIT CAP PO SCH (09:00)
--- NOTE | 2020-10-16 09:45 | XR ---
EXAMINATION TYPE: XR chest 1V portable DATE OF EXAM: 10/16/2020 COMPARISON: Prior chest x-ray 10/14/2020 HISTORY: Covid pneumonitis TECHNIQUE: Single frontal view of the chest is obtained. FINDINGS: Exam somewhat limited by patient body habitus. No evident pneumothorax or pleural effusion . Heart is stable. Pulmonary vascularity and eliecer not significant changed. Question some perihilar in creased attenuation. IMPRESSION: Difficult to exclude pneumonia, consider PA and lateral chest x-ray for better evaluatio n.
[2020-10-16 11:37] LABS: Glucose,Whole Blood 192 mg/dL (75-99)
--- NOTE | 2020-10-16 14:49 | P.PN ---
Subjective Progress Note Date: 10/16/20 Principal diagnosis: Acute hypoxic respiratory failure secondary to CoVID 19 pneumonitis 70-year-old white female patient of Dr. Persaud, with past medical history of hypertension, hypercholesterolemia, anxiety, depression, breast cancer status post bilateral mastectomy, osteoarthritis who presented to the emergency department on 10/13/2020 for evaluation of increasing weakness, body aches and pains, and shortness of breath and cough. Apparently her was diagnosed with COVID 19. Chest x-ray was completed showing bibasilar mild lung infiltrates. She was started for COVID 19 and was found to be positive. She's been afebrile while in the hospital, with a T-max of 11.5F, she is currently on 2 L of oxygen with pulse ox of 94%, slightly tachycardic, in sinus mechanism. Admission labs have been reviewed showing white blood cell count of 4.4, hemoglobin of 13.5, leukocyte, 0.8, d-dimer of 0.62, sodium of 134, potassium is 4.2, chloride is 95, B1 of 30, creatinine is 1.56, glucose is 334, plasma lactic acid was mildly elevated at 2.3, LDH was 672, CRP was 76.4, LFTs were within normal limits, pro-calcitonin came back at 0.53. She was fluid resuscitated, s he received 500 mL and fluid bolus, and received another liter over several hours, currently IV fluids infusing and rate of 100 ML per hour, lactic acidosis has improved. The patient has been started on Lovenox 100 mg subcutaneously at bedtime, and IV steroids at 40 mg every 8 hours. The patient is seen today 10/15/2020 and follow-up on the regular medical floor. She is currently awake and alert in no acute distress. Maintaining O2 saturation in the 90s on 2 L/m per nasal cannula. She's afebrile. Blood and sputum cultures reveal no growth. D-dimer 0.72. C-reactive protein 17.1. Blood glucose 235. This is day #2 of Remdesivir. She has 0.9 normal sinus ML's per hour. Remains on IV Solu-Medrol, Lovenox. Continued on vitamin C, vitamin D, zinc, Pepcid, melatonin. Empiric antibiotics in the form of Augmentin. The patient is seen today 10/16/2020 follow-up on the regular medical floor. He is awake and alert in no acute distress. Maintaining O2 saturation in the 90s on 2 L/m per nasal cannula. This is day #3 of her Remdesivir. She is anxious to go home. Sputum culture reveals no growth. Blood culture reveals no growth. D-dimer 0.69. She remains on antibiotics in the form of Augmentin. Continue bronchodilators, IV steroids. Continued on vitamin supplements. Objective - Vital Signs Vital signs: Vital Signs Temp 98.6 F 10/16/20 10:20 Pulse 99 10/16/20 10:20 Resp 18 10/16/20 10:20 BP 175/77 10/16/20 10:20 Pulse Ox 94 L 10/16/20 10:20 Intake & Output 10/15/20 10/16/20 10/16/20 18:59 06:59 18:59 Intake Total 1200 1550 Balance 1200 1550 Weight 107.501 kg Intake: Intake, IV Titration 1200 750 Amount Remdesivir 100 mg In 250 Sodium Chloride 0.9% 250 ml @ 250 mls/hr IVPB [facility] Rx#:[id number] Sodium Chloride 0.9% 1, 1200 500 000 ml @ 100 mls/hr IV . Q10H [facility] Rx#:[id number] Oral 800 Other: Voiding Method Bedside Commode # Voids 5 1 # Bowel Movements 1 1 - Exam GENERAL EXAM: Alert, pleasant 70-year-old female patient, on 2 L nasal cannula, comfortable in no apparent distress. HEAD: Normocephalic. EYES: Normal reaction of pupils, equal size. NOSE: Clear with pink turbinates. THROAT: No erythema or exudates. NECK: No masses, no JVD. CHEST: No chest wall deformity. LUNGS: Equal air entry with few scattered rhonchi. CVS: S1 and S2 normal with no audible murmur, regular rhythm. ABDOMEN: No hepatosplenomegaly, normal bowel sounds, no guarding or rigidity. SPINE: No scoliosis or deformity SKIN: No rashes CENTRAL NERVOUS SYSTEM: No focal deficits, tone is normal in all 4 extremities. EXTREMITIES: There is no peripheral edema. No clubbing, no cyanosis. Peripheral pulses are intact. - Labs CBC & Chem 7: 10/13/20 16:00 10/13/20 16:00 Labs: Abnormal Lab Results - Last 24 Hours (Table) 10/15/20 10/15/20 10/16/20 Range/Units 17:05 20:48 07:07 D-Dimer (<0.60) mg/L FEU POC Glucose (mg/dL) 168 H 201 H 183 H (75-99) mg/dL 10/16/20 10/16/20 Range/Units 09:27 11:27 D-Dimer 0.69 H (<0.60) mg/L FEU POC Glucose (mg/dL) 192 H (75-99) mg/dL Microbiology - Last 24 Hours (Table) 10/13/20 20:15 Gram Stain - Preliminary Sputum Sputum Culture - Preliminary 10/13/20 16:00 Blood Culture - Preliminary Blood No Growth after 48 hours Assessment and Plan Assessment: 1 Acute hypoxic respiratory failure secondary to CoVID 19 pneumonitis 2 Possibility of bacterial infection to be ruled out, procalcitonin level is elevated at 0.53, will cover the patient with empiric antibiotic 3 Elevated d-dimer patient's covered with prophylactic dose of Lovenox 4 Shortness of breath, cough, fever, related to quit 19 pneumonia, rule out possibility of bacterial superinfection 5 Acute kidney injury 6 Mild lactic acidosis, improved with fluid resuscitation 7 Elevated inflammatory markers related to COVID 19 infection 8 History of breast cancer status post bilateral mastectomy 9 Hypertension 10 Hyperlipidemia 11 Anxiety and depression Plan: The patient was seen and evaluated by Dr. Levine Continue Remdesivir, IV Solu-Medrol, Lovenox Continue vitamin supplements Continue Augmentin Patient has home O2 We will continue to follow I, the cosigning physician, performed a history & physical examination of the patient. Lungs sounds with few scattered rhonchi. Maintaining good O2 saturations in the 90s on 2 L/m per nasal cannula. I discussed the assessment and plan of care with my nurse practitioner, Dolores Ross. I attest to the above note as dictated by her.
--- NOTE | 2020-10-16 15:57 | P.PN ---
Subjective Progress Note Date: 10/16/20 HISTORY OF PRESENT ILLNESS This is a 70-year-old female patient admitted to the hospital for CO VID-19 pneumonia. Repeat chest x-ray reveals difficult to exclude pneumonia. The patient states that cough is improving and less frequent. Diarrhea is also improving. She denies having any abdominal pain. Patient has been afebrile for 48 hours. Pulse ox is now 94% on 2 L nasal cannula. Heart rate 99, blood pressure 135/77. Sputum culture is in progress. Blood culture no growth at 48 hours. She is currently on day #3/5 of Remdesivir course. PHYSICAL EXAMINATION Gen: This is a morbidly obese 70-year-old female. Patient is resting in bed appears to be comfortable and in no acute distress. HEENT: Head is atraumatic, normocephalic. Pupils equal, round. Sclerae is anicteric. LUNGS: Clear to auscultation. No wheezes or rhonchi. No intercostal retractions. HEART: Regular rate and rhythm. No murmur. ABDOMEN: Soft. Bowel sounds are present. No masses. No tenderness. EXTREMITIES: No pedal edema. NEUROLOGICAL: Patient is awake, alert and oriented x3. ASSESSMENT Covid 19 pneumonia Acute hypoxic respiratory failure Possible bacterial pneumonia Elevated inflammatory marker secondary to Covid 19 History of breast cancer PLAN Continue Remdesivir on day 3 Continue supplementation with zinc, vitamin C, vitamin D Continue Augmentin for possible bacterial pneumonia Continue Solu-Medrol 40 mg IV every 8 hours The above dictated assessment and findings were discussed with Dr. Bass. The impression and plan of care have been directed as dictated. Ioana Cardona nurse practitioner acting as scribe for Dr. Bass. Objective - Vital Signs Vital signs: Vital Signs Temp 98.4 F 10/16/20 05:00 Pulse 91 10/16/20 05:00 Resp 17 10/16/20 05:00 BP 156/64 10/16/20 05:00 Pulse Ox 97 10/16/20 05:00 Intake & Output 10/15/20 10/16/20 10/16/20 18:59 06:59 18:59 Intake Total 1200 1550 Balance 1200 1550 Weight 107.501 kg Intake: Intake, IV Titration 1200 750 Amount Remdesivir 100 mg In 250 Sodium Chloride 0.9% 250 ml @ 250 mls/hr IVPB HS [facility] Rx#:[id number] Sodium Chloride 0.9% 1, 1200 500 000 ml @ 100 mls/hr IV . Q10H [facility] Rx#:[id number] Oral 800 Other: Voiding Method Bedside Commode # Voids 5 2 # Bowel Movements 1 1 - Labs CBC & Chem 7: 10/13/20 16:00 10/13/20 16:00 Labs: Abnormal Lab Results - Last 24 Hours (Table) 10/15/20 10/15/20 10/15/20 Range/Units 05:53 11:18 17:05 D-Dimer (<0.60) mg/L FEU POC Glucose (mg/dL) 235 H 168 H (75-99) mg/dL C-Reactive Protein 17.1 H (0.0-0.8) mg/dL 10/15/20 10/16/20 10/16/20 Range/Units 20:48 07:07 09:27 D-Dimer 0.69 H (<0.60) mg/L FEU POC Glucose (mg/dL) 201 H 183 H (75-99) mg/dL C-Reactive Protein (0.0-0.8) mg/dL Microbiology - Last 24 Hours (Table) 10/13/20 16:00 Blood Culture - Preliminary Blood No Growth after 48 hours 10/13/20 20:15 Gram Stain - Preliminary Sputum Sputum Culture - Preliminary
[2020-10-16] MEDS: ACETAMINOPHEN TAB 325 MG TAB PO PRN (16:05)
[2020-10-16 16:49] LABS: C Reactive Protein 7.9 mg/dL (0.0-0.8)
[2020-10-16 17:00] LABS: Glucose,Whole Blood 113 mg/dL (75-99)
[2020-10-16 20:01] LABS: Glucose,Whole Blood 165 mg/dL (75-99)
[2020-10-16] MEDS: REMDESIVIR 100 MG in SODIUM CHLORIDE 0.9% 250 ML IVPB SCH (20:22)
--- NOTE | 2020-10-16 21:58 | P.PN ---
Progress Note - Text Progress Note Date: 10/16/20 Chief Complaint: Short of breath cough History of presenting complaint: Estil a very pleasant 70-year-old patient of Dr. Persaud. Chronic stable medical conditions include diabetes, hyperlipidemia, hypertension, primary osteoarthritis, peripheral neuropathy, bilateral breast cancer with bilateral mastectomy, IBS, diverticulosis, chronic low back arthritis. Anxiety depression. For 2 weeks patient been having respiratory symptoms that have been progressive. Has got a cough. Congestion the chest. Fever or chills. Loose stools. Headache no loss of taste or smell. Presented to ER. Tested positive for COVID Admitted with COVID 19 pneumonia, sepsis, acute hypoxic respiratory failure, acute COPD exacerbation. Started on IV Solu-Medrol, subcu Lovenox, IV Remdesivir, bronchodilator. Did spike a fever this afternoon. Tired, short of breath.. Oral intake b kierra. Review of systems: Was done for constitutional, cardiovascular, GI, pulmonary. relevant finding as above Active Medications Acetaminophen (Acetaminophen Tab 325 Mg Tab) 650 mg PO Q4HR PRN PRN Reason: Fever and/ or Pain Last Admin: 10/16/20 16:05 Dose: 650 mg Documented by: Al Hydroxide/Mg Hydroxide (Mag Hydrox/Al Hydrox/Simeth 30 Ml Cup) 15 ml PO Q6HR PRN PRN Reason: Indigestion Albuterol Sulfate (Albuterol Hfa Inhaler) 1 puff INHALATION RT-TID PRN PRN Reason: Shortness Of Breath Or Wheezing Albuterol Sulfate (Albuterol Hfa Inhaler) 2 puff INHALATION RT-QID [facility] Last Admin: 10/16/20 19:33 Dose: 2 puff Documented by: Allopurinol (Allopurinol 100 Mg Tab) 100 mg PO DAILY [facility] Last Admin: 10/16/20 08:02 Dose: 100 mg Documented by: Alprazolam (Alprazolam 0.25 Mg Tab) 0.25 mg PO Q6HR PRN PRN Reason: Anxiety Amoxicillin/Clavulanate Potassium (Amoxic-Pot Clav 500-125 Mg 1 Each Tab) 1 each PO Q12HR [facility] Last Admin: 10/16/20 08:02 Dose: 1 each Documented by: Ascorbic Acid (Ascorbic Acid 500 Mg Tab) 500 mg PO DAILY [facility] Last Admin: 10/16/20 08:02 Dose: 500 mg Documented by: Balsalazide (Balsalazide Disodium 750 Mg Capsule) 2,250 mg PO TID [facility] Last Admin: 10/16/20 17:28 Dose: 2,250 mg Documented by: Calcium Carbonate/Glycine (Calcium Carbonate 500 Mg Chewable) 1,000 mg PO Q4HR PRN PRN Reason: Dyspepsia Clonazepam (Clonazepam 0.5 Mg Tab) 0.5 mg PO TID [facility] Last Admin: 10/16/20 16:05 Dose: 0.5 mg Documented by: Enoxaparin Sodium (Enoxaparin 40 Mg/0.4 Ml Syringe) 40 mg SQ DAILY [facility] Last Admin: 10/16/20 08:01 Dose: 40 mg Documented by: Ergocalciferol (Ergocalciferol 50,000 Unit Cap) 50,000 unit PO TH [facility] Last Admin: 10/16/20 08:01 Dose: 50,000 unit Documented by: Famotidine (Famotidine 20 Mg Tab) 20 mg PO DAILY [facility] Last Admin: 10/16/20 08:01 Dose: 20 mg Documented by: Fenofibrate (Fenofibrate 160 Mg Tab) 160 mg PO DAILY [facility] Last Admin: 10/16/20 08:02 Dose: 160 mg Documented by: Fluoxetine HCl (Fluoxetine Hcl 20 Mg Cap) 40 mg PO DAILY [facility] Last Admin: 10/16/20 08:01 Dose: 40 mg Documented by: Sodium Chloride (Saline 0.9%) 1,000 mls @ 100 mls/hr IV .Q10H [facility] Last Admin: 10/16/20 20:24 Dose: 100 mls/hr Documented by: Remdesivir 100 mg/ Sodium (Chloride) 250 mls @ 250 mls/hr IVPB [facility] Stop: 10/18/20 21:59 Last Admin: 10/16/20 20:22 Dose: 250 mls/hr Documented by: Ibuprofen (Ibuprofen 200 Mg Tab) 200 mg PO Q6HR PRN PRN Reason: Pain Last Admin: 10/14/20 19:41 Dose: 200 mg Documented by: Insulin Aspart (Insulin Aspart (Novolog) 100 Unit/Ml Vial) 0 unit SQ ACHS [facility]; Protocol Last Admin: 10/16/20 17:09 Dose: Not Given Documented by: Insulin Detemir (Insulin Detemir (Levemir) 100 Unit/Ml Syr) 40 unit SQ DAILY@0700 [facility] Last Admin: 10/16/20 08:00 Dose: 40 unit Documented by: Lactulose (Lactulose 20 Gm/30 Ml Cup) 20 gm PO DAILY PRN PRN Reason: Constipation Magnesium Hydroxide (Magnesium Hydroxide 2,400 Mg/10 Ml Cup) 2,400 mg PO DAILY PRN PRN Reason: Constipation Melatonin (Melatonin 3 Mg Tablet) 3 mg PO HS PRN PRN Reason: Insomnia Methylprednisolone Sodium Succinate (Methylprednisolone Sod Succi 40 Mg/Ml 1 Ml Vial) 40 mg IV Q8HR [facility] Last Admin: 10/16/20 16:05 Dose: 40 mg Documented by: Metoprolol Succinate (Metoprolol Succinate (Er) 25 Mg Tab.Er.24h) 12.5 mg PO DAILY [facility] Last Admin: 10/16/20 08:01 Dose: 12.5 mg Documented by: Naloxone HCl (Naloxone 0.4 Mg/Ml 1 Ml Vial) 0.2 mg IV Q2M PRN PRN Reason: Opioid Reversal Olanzapine (Olanzapine 5 Mg Tab) 5 mg PO BID [facility] Last Admin: 10/16/20 08:02 Dose: 5 mg Documented by: Ondansetron HCl (Ondansetron 4 Mg/2 Ml Vial) 4 mg IVP Q8HR PRN PRN Reason: Nausea And Vomiting Zinc Sulfate (Zinc Sulfate 220 Mg Cap) 220 mg PO DAILY [facility] Last Admin: 10/16/20 08:02 Dose: 220 mg Documented by: Physical examination: VITAL SIGNS: 102.8, 110, 18, 151/80, 80% on 2 L GENERAL: BMI 43.3, laying in bed, tired. PSYCH: Alert and oriented x3; mood and affect less anxious. Rest of the exam per pulmonary and ID INVESTIGATIONS, reviewed in the clinical context: October 16: D-dimer 0.69 CRP 7.9 LDH 338 October 15: D-dimer 0.72, CRP 17.1 Previous testing White count 4.4 hemoglobin 13.5 platelets 373 decreased lymphocytes at 0.8 D-dimer 0.62 sodium 134 potassium 4.2 bun 38 creatinine 1.56 Lactic acid 2.3 ferritin 354 LDH 672 CRP 76.4 pro-calcitonin 0.53 Coronavirus P/Cr-detected EKG tracing personally reviewed by me-sinus rhythm with some nonspecific T-wave changes Chest x-ray film personally reviewed by me-portable, possible infiltrate Assessment: -COVID 19 pneumonia -Severe sepsis from above-slow to respond -Acute hypoxic respiratory failure from pneumonia -Acute COPD exacerbation in an ex-smoker -Morbid obesity BMI 43.3 -Diabetes mellitus type 2 on oral hypoglycemic -Hyperlipidemia -Essential hypertension -Primary osteoarthritis -Diabetic peripheral neuropathy -Chronic kidney disease stage III from diabetic nephropathy and hypertensive nephrosclerosis Plan: Continue IV Solu-Medrol, Lovenox , Remdesivir. Discussed with the patient. Follow with ID
[2020-10-17] MEDS: methylPREDNISolone SOD SUCCI 40 MG/ML 1 ML VIAL IV SCH ×3 (00:15→17:11)
[2020-10-17] MEDS: SODIUM CHLORIDE 0.9% 1,000 ML IV SCH ×2 (05:17→17:12)
[2020-10-17 07:24] LABS: Glucose,Whole Blood 222 mg/dL (75-99)
[2020-10-17 07:46] LABS: Basophils % (A) 0 %; Eosinophils % (A) 0 %; HCT 41.5 % (34.0-46.0); HGB 13.2 gm/dL (11.4-16.0); Lymphocytes # (A) 0.7 k/uL (1.0-4.8); Lymphocytes % (A) 17 %; MCH 27.8 pg (25.0-35.0); MCHC 31.8 g/dL (31.0-37.0); MCV 87.7 fL (80.0-100.0); Monocytes # (A) 0.2 k/uL (0-1.0); Monocytes % (A) 6 %; Neutrophils # (A) 3.2 k/uL (1.3-7.7); Neutrophils % (A) 75 %; Platelet Count 409 k/uL (150-450); RBC 4.73 m/uL (3.80-5.40); RDW 13.6 % (11.5-15.5); WBC 4.2 k/uL (3.8-10.6)
[2020-10-17] MEDS: METOPROLOL SUCCINATE (ER) 25 MG TAB.ER.24H PO SCH (08:36)
[2020-10-17] MEDS: FLUoxetine HCL 20 MG CAP PO SCH (08:36)
[2020-10-17] MEDS: BALSALAZIDE DISODIUM 750 MG CAPSULE PO SCH ×3 (08:37→22:31)
[2020-10-17] MEDS: clonazePAM 0.5 MG TAB PO SCH ×3 (08:37→22:33)
[2020-10-17] MEDS: FAMOTIDINE 20 MG TAB PO SCH (08:37)
[2020-10-17] MEDS: OLANZapine 5 MG TAB PO SCH ×2 (08:37→22:31)
[2020-10-17] MEDS: INSULIN ASPART (NovoLOG) 100 UNIT/ML VIAL SQ SCH ×4 (08:37→22:14)
[2020-10-17] MEDS: AMOXIC-POT CLAV 500-125 MG 1 EACH TAB PO SCH ×2 (08:37→22:32)
[2020-10-17] MEDS: ZINC SULFATE 220 MG CAP PO SCH (08:37)
[2020-10-17] MEDS: FENOFIBRATE 160 MG TAB PO SCH (08:37)
[2020-10-17] MEDS: ASCORBIC ACID 500 MG TAB PO SCH (08:37)
[2020-10-17] MEDS: allopurinoL 100 MG TAB PO SCH (08:37)
[2020-10-17] MEDS: ENOXAPARIN 40 MG/0.4 ML SYRINGE SQ SCH (08:38)
[2020-10-17] MEDS: ALBUTEROL HFA INHALER INHALATION SCH ×4 (09:17→19:56)
[2020-10-17 12:09] LABS: Glucose,Whole Blood 231 mg/dL (75-99)
[2020-10-17] MEDS: INSULIN DETEMIR (LEVEMIR) 100 UNIT/ML SYR SQ SCH (12:38)
--- NOTE | 2020-10-17 14:39 | P.PN ---
Subjective Progress Note Date: 10/17/20 Principal diagnosis: Acute hypoxic respiratory failure secondary to CoVID 19 pneumonitis 70-year-old white female patient of Dr. Persaud, with past medical history of hypertension, hypercholesterolemia, anxiety, depression, breast cancer status post bilateral mastectomy, osteoarthritis who presented to the emergency department on 10/13/2020 for evaluation of increasing weakness, body aches and pains, and shortness of breath and cough. Apparently her was diagnosed with COVID 19. Chest x-ray was completed showing bibasilar mild lung infiltrates. She was started for COVID 19 and was found to be positive. She's been afebrile while in the hospital, with a T-max of 11.5F, she is currently on 2 L of oxygen with pulse ox of 94%, slightly tachycardic, in sinus mechanism. Admission labs have been reviewed showing white blood cell count of 4.4, hemoglobin of 13.5, leukocyte, 0.8, d-dimer of 0.62, sodium of 134, potassium is 4.2, chloride is 95, B1 of 30, creatinine is 1.56, glucose is 334, plasma lactic acid was mildly elevated at 2.3, LDH was 672, CRP was 76.4, LFTs were within normal limits, pro-calcitonin came back at 0.53. She was fluid resuscitated, s he received 500 mL and fluid bolus, and received another liter over several hours, currently IV fluids infusing and rate of 100 ML per hour, lactic acidosis has improved. The patient has been started on Lovenox 100 mg subcutaneously at bedtime, and IV steroids at 40 mg every 8 hours. The patient is seen today 10/15/2020 and follow-up on the regular medical floor. She is currently awake and alert in no acute distress. Maintaining O2 saturation in the 90s on 2 L/m per nasal cannula. She's afebrile. Blood and sputum cultures reveal no growth. D-dimer 0.72. C-reactive protein 17.1. Blood glucose 235. This is day #2 of Remdesivir. She has 0.9 normal sinus ML's per hour. Remains on IV Solu-Medrol, Lovenox. Continued on vitamin C, vitamin D, zinc, Pepcid, melatonin. Empiric antibiotics in the form of Augmentin. The patient is seen today 10/16/2020 follow-up on the regular medical floor. He is awake and alert in no acute distress. Maintaining O2 saturation in the 90s on 2 L/m per nasal cannula. This is day #3 of her Remdesivir. She is anxious to go home. Sputum culture reveals no growth. Blood culture reveals no growth. D-dimer 0.69. She remains on antibiotics in the form of Augmentin. Continue bronchodilators, IV steroids. Continued on vitamin supplements. The patient is seen today 10/17/2020 in follow-up on the regular medical floor. She remains awake and alert in no acute distress. Maintaining O2 saturations in the 90s on 2 L/m per nasal cannula. She's afebrile. Blood and sputum cultures reveal no growth. White count 4.2. Hemoglobin 13.2. Lymphocytes 0.7. D-dimer 0.64. Pro-calcitonin 0.26. Adelita on Augmentin. Continued on IV Solu-Medrol, Levaquin vitamin C, vitamin D, melatonin, zinc. This is day #4 of Remdesivir. Objective - Vital Signs Vital signs: Vital Signs Temp 98.5 F 10/17/20 11:08 Pulse 83 10/17/20 11:08 Resp 22 10/17/20 11:08 BP 160/79 10/17/20 11:08 Pulse Ox 91 L 10/17/20 11:08 Intake & Output 10/16/20 10/17/20 10/17/20 18:59 06:59 18:59 Intake Total 1450 240 Output Total 950 Balance 500 240 Intake: Intake, IV Titration 1450 Amount Remdesivir 100 mg In 250 Sodium Chloride 0.9% 250 ml @ 250 mls/hr IVPB HS [facility] Rx#:[id number] Sodium Chloride 0.9% 1, 1200 000 ml @ 100 mls/hr IV . Q10H [facility] Rx#:[id number] Oral 240 Output: Urine 950 Other: # Voids 2 1 # Bowel Movements 1 1 - Exam GENERAL EXAM: Alert, pleasant 70-year-old female patient, on 2 L nasal cannula, comfortable in no apparent distress. HEAD: Normocephalic. EYES: Normal reaction of pupils, equal size. NOSE: Clear with pink turbinates. THROAT: No erythema or exudates. NECK: No masses, no JVD. CHEST: No chest wall deformity. LUNGS: Equal air entry with few scattered rhonchi. CVS: S1 and S2 normal with no audible murmur, regular rhythm. ABDOMEN: No hepatosplenomegaly, normal bowel sounds, no guarding or rigidity. SPINE: No scoliosis or deformity SKIN: No rashes CENTRAL NERVOUS SYSTEM: No focal deficits, tone is normal in all 4 extremities. EXTREMITIES: There is no peripheral edema. No clubbing, no cyanosis. Peripheral pulses are intact. - Labs CBC & Chem 7: 10/17/20 07:17 10/13/20 16:00 Labs: Abnormal Lab Results - Last 24 Hours (Table) 10/16/20 10/16/20 10/16/20 Range/Units 08:29 16:56 20:00 Lymphocytes # (1.0-4.8) k/uL D-Dimer (<0.60) mg/L FEU POC Glucose (mg/dL) 113 H 165 H (75-99) mg/dL Lactate Dehydrogenase 338 H (120-246) U/L C-Reactive Protein 7.9 H (0.0-0.8) mg/dL Procalcitonin (0.02-0.09) ng/mL 10/17/20 10/17/20 10/17/20 Range/Units 07:10 07:17 07:17 Lymphocytes # 0.7 L (1.0-4.8) k/uL D-Dimer (<0.60) mg/L FEU POC Glucose (mg/dL) 222 H (75-99) mg/dL Lactate Dehydrogenase (120-246) U/L C-Reactive Protein (0.0-0.8) mg/dL Procalcitonin 0.26 H (0.02-0.09) ng/mL 10/17/20 10/17/20 Range/Units 07:17 11:50 Lymphocytes # (1.0-4.8) k/uL D-Dimer 0.64 H (<0.60) mg/L FEU POC Glucose (mg/dL) 231 H (75-99) mg/dL Lactate Dehydrogenase (120-246) U/L C-Reactive Protein (0.0-0.8) mg/dL Procalcitonin (0.02-0.09) ng/mL Microbiology - Last 24 Hours (Table) 10/13/20 20:15 Gram Stain - Final Sputum Sputum Culture - Final 10/13/20 16:00 Blood Culture - Preliminary Blood No Growth after 72 hours Assessment and Plan Assessment: 1 Acute hypoxic respiratory failure secondary to CoVID 19 pneumonitis, receiving Remdesivir 2 Possibility of bacterial infection to be ruled out, procalcitonin level is elevated at 0.26, remains on Augmentin 3 Elevated d-dimer patient's covered with prophylactic dose of Lovenox 4 Shortness of breath, cough, fever, related to quit 19 pneumonia, rule out possibility of bacterial superinfection 5 Acute kidney injury 6 Mild lactic acidosis, improved with fluid resuscitation 7 Elevated inflammatory markers related to COVID 19 infection 8 History of breast cancer status post bilateral mastectomy 9 Hypertension 10 Hyperlipidemia 11 Anxiety and depression Plan: The patient was seen and evaluated by Dr. Levine Currently stable from the pulmonary standpoint Continue Remdesivir, IV Solu-Medrol, Lovenox Continue vitamin supplements Continue Augmentin We will continue to follow I, the cosigning physician, performed a history & physical examination of the patient. Lungs sounds with few scattered rhonchi. Maintaining good O2 s aturations in the 90s on 2 L/m per nasal cannula. I discussed the assessment and plan of care with my nurse practitioner, Dolores Ross. I attest to the above note as dictated by her.
--- NOTE | 2020-10-17 15:57 | P.PN ---
Subjective Progress Note Date: 10/17/20 HISTORY OF PRESENT ILLNESS This is a 70-year-old female patient admitted to the hospital for CO VID-19 pneumonia. Repeat chest x-ray reveals difficult to exclude pneumonia. The patient states that cough is improving and less frequent. Diarrhea is also improving. She denies having any abdominal pain. Patient has been afebrile for 48 hours. Pulse ox is now 94% on 2 L nasal cannula. Heart rate 99, blood pressure 135/77. Sputum culture is in progress. Blood culture no growth at 48 hours. She is currently on day #3/5 of Remdesivir course. 10/17: Patient states she is feeling okay today. Breathing status is improving. She is currently a pulse ox see 91% on 2 L nasal cannula. She denies any chest pain. She continues to have a cough that is nonproductive. No abdominal pain, nausea or vomiting. She denies any diarrhea. Temperature max 102.8 at 3 PM yesterday. Repeat d-dimer 0.64. Pro-calcitonin 2.26. Blood sugars are elevated. PHYSICAL EXAMINATION Gen: This is a morbidly obese 70-year-old female. Patient is resting in bed appears to be comfortable and in no acute distress. HEENT: Head is atraumatic, normocephalic. Pupils equal, round. Sclerae is anicteric. LUNGS: Clear to auscultation. No wheezes or rhonchi. No intercostal retractions. HEART: Regular rate and rhythm. No murmur. ABDOMEN: Soft. Bowel sounds are present. No masses. No tenderness. EXTREMITIES: No pedal edema. NEUROLOGICAL: Patient is awake, alert and oriented x3. ASSESSMENT Covid 19 pneumonia Acute hypoxic respiratory failure, improving Possible bacterial pneumonia Elevated inflammatory marker secondary to Covid 19 History of breast cancer PLAN Continue Remdesivir on day 4/5 Continue supplementation with zinc, vitamin C, vitamin D Continue Augmentin for possible bacterial pneumonia Continue Solu-Medrol 40 mg IV every 8 hours Patient is stable and cleared for discharge from infectious disease and can be discharged on oral prednisone, oral antibiotics and supplements The above dictated assessment and findings were discussed with Dr. Bass. The impression and plan of care have been directed as dictated. Ioana Cardona nurse practitioner acting as scribe for Dr. Bass. Objective - Vital Signs Vital signs: Vital Signs Temp 98.5 F 10/17/20 11:08 Pulse 83 10/17/20 11:08 Resp 22 10/17/20 11:08 BP 160/79 10/17/20 11:08 Pulse Ox 91 L 10/17/20 11:08 Intake & Output 10/16/20 10/17/20 10/17/20 18:59 06:59 18:59 Intake Total 1450 Output Total 950 Balance 500 Intake: Intake, IV Titration 1450 Amount Remdesivir 100 mg In 250 Sodium Chloride 0.9% 250 ml @ 250 mls/hr IVPB HS [facility] Rx#:[id number] Sodium Chloride 0.9% 1, 1200 000 ml @ 100 mls/hr IV . Q10H [facility] Rx#:[id number] Output: Urine 950 Other: # Voids 2 1 # Bowel Movements 1 1 - Labs CBC & Chem 7: 10/17/20 07:17 10/13/20 16:00 Labs: Abnormal Lab Results - Last 24 Hours (Table) 10/16/20 10/16/20 10/16/20 Range/Units 08:29 16:56 20:00 Lymphocytes # (1.0-4.8) k/uL D-Dimer (<0.60) mg/L FEU POC Glucose (mg/dL) 113 H 165 H (75-99) mg/dL Lactate Dehydrogenase 338 H (120-246) U/L C-Reactive Protein 7.9 H (0.0-0.8) mg/dL Procalcitonin (0.02-0.09) ng/mL 10/17/20 10/17/20 10/17/20 Range/Units 07:10 07:17 07:17 Lymphocytes # 0.7 L (1.0-4.8) k/uL D-Dimer (<0.60) mg/L FEU POC Glucose (mg/dL) 222 H (75-99) mg/dL Lactate Dehydrogenase (120-246) U/L C-Reactive Protein (0.0-0.8) mg/dL Procalcitonin 0.26 H (0.02-0.09) ng/mL 10/17/20 10/17/20 Range/Units 07:17 11:50 Lymphocytes # (1.0-4.8) k/uL D-Dimer 0.64 H (<0.60) mg/L FEU POC Glucose (mg/dL) 231 H (75-99) mg/dL Lactate Dehydrogenase (120-246) U/L C-Reactive Protein (0.0-0.8) mg/dL Procalcitonin (0.02-0.09) ng/mL Microbiology - Last 24 Hours (Table) 10/13/20 20:15 Gram Stain - Final Sputum Sputum Culture - Final 10/13/20 16:00 Blood Culture - Preliminary Blood No Growth after 72 hours
[2020-10-17 16:46] LABS: Glucose,Whole Blood 130 mg/dL (75-99)
[2020-10-17 20:24] LABS: Glucose,Whole Blood 354 mg/dL (75-99)
[2020-10-17] MEDS ORDERED: INSULIN REGULAR BOLUS (FROM DRIP BAG) IV ONE ×2 (21:46→22:30)
[2020-10-17] MEDS: REMDESIVIR 100 MG in SODIUM CHLORIDE 0.9% 250 ML IVPB SCH (22:30)
--- NOTE | 2020-10-17 22:54 | P.PN ---
Progress Note - Text Progress Note Date: 10/17/20 Chief Complaint: Short of breath cough History of presenting complaint: Isaiahil a very pleasant 70-year-old patient of Dr. Persaud. Chronic stable medical conditions include diabetes, hyperlipidemia, hypertension, primary osteoarthritis, peripheral neuropathy, bilateral breast cancer with bilateral mastectomy, IBS, diverticulosis, chronic low back arthritis. Anxiety depression. For 2 weeks patient been having respiratory symptoms that have been progressive. Has got a cough. Congestion the chest. Fever or chills. Loose stools. Headache no loss of taste or smell. Presented to ER. Tested positive for COVID Admitted with COVID 19 pneumonia, sepsis, acute hypoxic respiratory failure, acute COPD exacerbation. Started on IV Solu-Medrol, subcu Lovenox, IV Remdesivir, bronchodilator. Today-feeling a bit better. Appetite improving. Breathing bit better. No fever since this morning. Review of systems: Was done for constitutional, cardiovascular, GI, pulmonary. relevant finding as above Active Medications Acetaminophen (Acetaminophen Tab 325 Mg Tab) 650 mg PO Q4HR PRN PRN Reason: Fever and/ or Pain Last Admin: 10/16/20 16:05 Dose: 650 mg Documented by: Al Hydroxide/Mg Hydroxide (Mag Hydrox/Al Hydrox/Simeth 30 Ml Cup) 15 ml PO Q6HR PRN PRN Reason: Indigestion Albuterol Sulfate (Albuterol Hfa Inhaler) 1 puff INHALATION RT-TID PRN PRN Reason: Shortness Of Breath Or Wheezing Albuterol Sulfate (Albuterol Hfa Inhaler) 2 puff INHALATION RT-QID [facility] Last Admin: 10/17/20 19:56 Dose: 2 puff Documented by: Allopurinol (Allopurinol 100 Mg Tab) 100 mg PO DAILY [facility] Last Admin: 10/17/20 08:37 Dose: 100 mg Documented by: Alprazolam (Alprazolam 0.25 Mg Tab) 0.25 mg PO Q6HR PRN PRN Reason: Anxiety Amoxicillin/Clavulanate Potassium (Amoxic-Pot Clav 500-125 Mg 1 Each Tab) 1 each PO Q12HR [facility] Last Admin: 10/17/20 22:32 Dose: 1 each Documented by: Ascorbic Acid (Ascorbic Acid 500 Mg Tab) 500 mg PO DAILY [facility] Last Admin: 10/17/20 08:37 Dose: 500 mg Documented by: Balsalazide (Balsalazide Disodium 750 Mg Capsule) 2,250 mg PO TID [facility] Last Admin: 10/17/20 22:31 Dose: 2,250 mg Documented by: Calcium Carbonate/Glycine (Calcium Carbonate 500 Mg Chewable) 1,000 mg PO Q4HR PRN PRN Reason: Dyspepsia Clonazepam (Clonazepam 0.5 Mg Tab) 0.5 mg PO TID [facility] Last Admin: 10/17/20 22:33 Dose: 0.5 mg Documented by: Enoxaparin Sodium (Enoxaparin 30 Mg/0.3 Ml Syringe) 30 mg SQ DAILY [facility] Ergocalciferol (Ergocalciferol 50,000 Unit Cap) 50,000 unit PO TH [facility] Last Admin: 10/16/20 08:01 Dose: 50,000 unit Documented by: Famotidine (Famotidine 20 Mg Tab) 20 mg PO DAILY [facility] Last Admin: 10/17/20 08:37 Dose: 20 mg Documented by: Fenofibrate (Fenofibrate 160 Mg Tab) 160 mg PO DAILY [facility] Last Admin: 10/17/20 08:37 Dose: 160 mg Documented by: Fluoxetine HCl (Fluoxetine Hcl 20 Mg Cap) 40 mg PO DAILY [facility] Last Admin: 10/17/20 08:36 Dose: 40 mg Documented by: Sodium Chloride (Saline 0.9%) 1,000 mls @ 100 mls/hr IV .Q10H [facility] Last Admin: 10/17/20 17:12 Dose: Not Given Documented by: Remdesivir 100 mg/ Sodium (Chloride) 250 mls @ 250 mls/hr IVPB [facility] Stop: 10/18/20 21:59 Last Admin: 10/17/20 22:30 Dose: 250 mls/hr Documented by: Insulin Human Regular 100 unit (/ Sodium Chloride) 101 mls @ 0 mls/hr IV .Q0M [facility]; Protocol Ibuprofen (Ibuprofen 200 Mg Tab) 200 mg PO Q6HR PRN PRN Reason: Pain Last Admin: 10/14/20 19:41 Dose: 200 mg Documented by: Lactulose (Lactulose 20 Gm/30 Ml Cup) 20 gm PO DAILY PRN PRN Reason: Constipation Magnesium Hydroxide (Magnesium Hydroxide 2,400 Mg/10 Ml Cup) 2,400 mg PO DAILY PRN PRN Reason: Constipation Melatonin (Melatonin 3 Mg Tablet) 3 mg PO HS PRN PRN Reason: Insomnia Methylprednisolone Sodium Succinate (Methylprednisolone Sod Succi 40 Mg/Ml 1 Ml Vial) 40 mg IV Q8HR [facility] Last Admin: 10/17/20 17:11 Dose: 40 mg Documented by: Metoprolol Succinate (Metoprolol Succinate (Er) 25 Mg Tab.Er.24h) 12.5 mg PO DAILY [facility] Last Admin: 10/17/20 08:36 Dose: 12.5 mg Documented by: Naloxone HCl (Naloxone 0.4 Mg/Ml 1 Ml Vial) 0.2 mg IV Q2M PRN PRN Reason: Opioid Reversal Olanzapine (Olanzapine 5 Mg Tab) 5 mg PO BID [facility] Last Admin: 10/17/20 22:31 Dose: 5 mg Documented by: Ondansetron HCl (Ondansetron 4 Mg/2 Ml Vial) 4 mg IVP Q8HR PRN PRN Reason: Nausea And Vomiting Zinc Sulfate (Zinc Sulfate 220 Mg Cap) 220 mg PO DAILY [facility] Last Admin: 10/17/20 08:37 Dose: 220 mg Documented by: Physical examination: VITAL SIGNS: 97.5, 86, 18, 154/73, 94% on 2 L GENERAL: Sitting up, looking better PSYCH: Alert and oriented x3; mood and affect less anxious. Rest of the exam per pulmonary and ID INVESTIGATIONS, reviewed in the clinical context: October 17: D-dimer 0.64 CRP 12.6 pro-calcitonin 0.26 October 16: D-dimer 0.69 CRP 7.9 LDH 338 October 15: D-dimer 0.72, CRP 17.1 Previous testing White count 4.4 hemoglobin 13.5 platelets 373 decreased lymphocytes at 0.8 D-dimer 0.62 sodium 134 potassium 4.2 bun 38 creatinine 1.56 Lactic acid 2.3 ferritin 354 LDH 672 CRP 76.4 pro-calcitonin 0.53 Coronavirus P/Cr-detected EKG tracing personally reviewed by me-sinus rhythm with some nonspecific T-wave changes Chest x-ray film personally reviewed by me-portable, possible infiltrate Assessment: -COVID 19 pneumonia-clinical response fair -Severe sepsis from pneumonia-getting better -Acute hypoxic respiratory failure from pneumonia-on 2 L -Acute COPD exacerbation in an ex-smoker -Morbid obesity BMI 43.3 -Diabetes mellitus type 2 on oral hypoglycemic, uncontrolled with hyperglycemia from steroids started insulin drip -Hyperlipidemia -Essential hypertension -Primary osteoarthritis -Diabetic peripheral neuropathy -Chronic kidney disease stage III from diabetic nephropathy and hypertensive nephrosclerosis Plan: Continue IV Solu-Medrol, Lovenox , Remdesivir. Discussed with the patient. Encourage incentive spirometry. Increase activity.
[2020-10-17 23:58] LABS: Glucose,Whole Blood 268 mg/dL (75-99)
[2020-10-18] MEDS: methylPREDNISolone SOD SUCCI 40 MG/ML 1 ML VIAL IV SCH ×3 (00:43→21:09)
[2020-10-18] MEDS: INSULIN REGULAR 100 UNIT in SODIUM CHLORIDE 0.9% 100 ML IV SCH ×2 (00:45→21:07)
[2020-10-18 01:23] LABS: Glucose,Whole Blood 163 mg/dL (75-99)
[2020-10-18 01:24] LABS: Glucose,Whole Blood 152 mg/dL (75-99)
[2020-10-18 02:00] LABS: Glucose,Whole Blood 92 mg/dL (75-99)
[2020-10-18 02:55] LABS: Glucose,Whole Blood 99 mg/dL (75-99)
[2020-10-18 03:54] LABS: Glucose,Whole Blood 121 mg/dL (75-99)
[2020-10-18 04:57] LABS: Glucose,Whole Blood 150 mg/dL (75-99)
[2020-10-18 06:19] LABS: Basophils # (A) 0.1 k/uL (0-0.2); Basophils % (A) 1 %; Eosinophils % (A) 0 %; HCT 40.4 % (34.0-46.0); HGB 13.6 gm/dL (11.4-16.0); Lymphocytes # (A) 0.7 k/uL (1.0-4.8); Lymphocytes % (A) 12 %; MCHC 33.7 g/dL (31.0-37.0); MCV 86.2 fL (80.0-100.0); Mean Platelet Volume 7.3; Monocytes # (A) 0.3 k/uL (0-1.0); Monocytes % (A) 6 %; Neutrophils # (A) 4.2 k/uL (1.3-7.7); Neutrophils % (A) 78 %; Platelet Count 407 k/uL (150-450); RBC 4.68 m/uL (3.80-5.40); RDW 13.3 % (11.5-15.5); WBC 5.4 k/uL (3.8-10.6)
[2020-10-18] MEDS: SODIUM CHLORIDE 0.9% 1,000 ML IV SCH ×3 (06:23→21:11)
[2020-10-18 07:21] LABS: Glucose,Whole Blood 174 mg/dL (75-99)
[2020-10-18] MEDS ORDERED: ENOXAPARIN 30 MG/0.3 ML SYRINGE SQ SCH (09:00)
[2020-10-18] MEDS: ALBUTEROL HFA INHALER INHALATION SCH ×4 (09:01→19:51)
[2020-10-18 09:07] LABS: African American GFR (CKD) 65.6 (60.0-200.0); Anion Gap 8.9 mmol/L (4.00-12.00); C Reactive Protein 6.7 mg/dL (0.0-0.8); Calcium 10.3 mg/dL (8.7-10.3); Carbon Dioxide 30.1 mmol/L (21.6-31.8); Non-African American GFR(CKD) 56.6 (60.0-200.0); Potassium 3.6 mmol/L (3.5-5.5)
[2020-10-18 09:09] LABS: Glucose,Whole Blood 185 mg/dL (75-99)
[2020-10-18] MEDS: ENOXAPARIN 40 MG/0.4 ML SYRINGE SQ SCH (09:26)
[2020-10-18] MEDS: FLUoxetine HCL 20 MG CAP PO SCH (09:27)
[2020-10-18] MEDS: BALSALAZIDE DISODIUM 750 MG CAPSULE PO SCH ×3 (09:27→21:08)
[2020-10-18] MEDS: ASCORBIC ACID 500 MG TAB PO SCH (09:27)
[2020-10-18] MEDS: AMOXIC-POT CLAV 500-125 MG 1 EACH TAB PO SCH ×2 (09:27→21:08)
[2020-10-18] MEDS: allopurinoL 100 MG TAB PO SCH (09:27)
[2020-10-18] MEDS: METOPROLOL SUCCINATE (ER) 25 MG TAB.ER.24H PO SCH (09:27)
[2020-10-18] MEDS: ZINC SULFATE 220 MG CAP PO SCH (09:27)
[2020-10-18] MEDS: FENOFIBRATE 160 MG TAB PO SCH (09:27)
[2020-10-18] MEDS: OLANZapine 5 MG TAB PO SCH ×2 (09:29→21:08)
[2020-10-18] MEDS: FAMOTIDINE 20 MG TAB PO SCH (09:30)
[2020-10-18] MEDS: clonazePAM 0.5 MG TAB PO SCH ×3 (10:08→21:08)
[2020-10-18 11:16] LABS: Glucose,Whole Blood 262 mg/dL (75-99)
[2020-10-18 13:27] LABS: Glucose,Whole Blood 236 mg/dL (75-99)
--- NOTE | 2020-10-18 13:52 | P.PN ---
Subjective Progress Note Date: 10/18/20 Principal diagnosis: Acute hypoxic respiratory failure secondary to CoVID 19 pneumonitis 70-year-old white female patient of Dr. Persaud, with past medical history of hypertension, hypercholesterolemia, anxiety, depression, breast cancer status post bilateral mastectomy, osteoarthritis who presented to the emergency department on 10/13/2020 for evaluation of increasing weakness, body aches and pains, and shortness of breath and cough. Apparently her was diagnosed with COVID 19. Chest x-ray was completed showing bibasilar mild lung infiltrates. She was started for COVID 19 and was found to be positive. She's been afebrile while in the hospital, with a T-max of 11.5F, she is currently on 2 L of oxygen with pulse ox of 94%, slightly tachycardic, in sinus mechanism. Admission labs have been reviewed showing white blood cell count of 4.4, hemoglobin of 13.5, leukocyte, 0.8, d-dimer of 0.62, sodium of 134, potassium is 4.2, chloride is 95, B1 of 30, creatinine is 1.56, glucose is 334, plasma lactic acid was mildly elevated at 2.3, LDH was 672, CRP was 76.4, LFTs were within normal limits, pro-calcitonin came back at 0.53. She was fluid resuscitated, s he received 500 mL and fluid bolus, and received another liter over several hours, currently IV fluids infusing and rate of 100 ML per hour, lactic acidosis has improved. The patient has been started on Lovenox 100 mg subcutaneously at bedtime, and IV steroids at 40 mg every 8 hours. The patient is seen today 10/15/2020 and follow-up on the regular medical floor. She is currently awake and alert in no acute distress. Maintaining O2 saturation in the 90s on 2 L/m per nasal cannula. She's afebrile. Blood and sputum cultures reveal no growth. D-dimer 0.72. C-reactive protein 17.1. Blood glucose 235. This is day #2 of Remdesivir. She has 0.9 normal sinus ML's per hour. Remains on IV Solu-Medrol, Lovenox. Continued on vitamin C, vitamin D, zinc, Pepcid, melatonin. Empiric antibiotics in the form of Augmentin. The patient is seen today 10/16/2020 follow-up on the regular medical floor. He is awake and alert in no acute distress. Maintaining O2 saturation in the 90s on 2 L/m per nasal cannula. This is day #3 of her Remdesivir. She is anxious to go home. Sputum culture reveals no growth. Blood culture reveals no growth. D-dimer 0.69. She remains on antibiotics in the form of Augmentin. Continue bronchodilators, IV steroids. Continued on vitamin supplements. The patient is seen today 10/17/2020 in follow-up on the regular medical floor. She remains awake and alert in no acute distress. Maintaining O2 saturations in the 90s on 2 L/m per nasal cannula. She's afebrile. Blood and sputum cultures reveal no growth. White count 4.2. Hemoglobin 13.2. Lymphocytes 0.7. D-dimer 0.64. Pro-calcitonin 0.26. Adelita on Augmentin. Continued on IV Solu-Medrol, Levaquin vitamin C, vitamin D, melatonin, zinc. This is day #4 of Remdesivir. The patient is seen today 10/18/2020 in follow-up on the regular medical floor. She is currently sitting up in bed. Awake and alert in no acute distress. Rectal maintaining O2 saturations in the 90s on 2 L/m per nasal cannula. She's afebrile. White count 5.4. Hemoglobin 13.6. D-dimer 0.56. Sodium 143. Potassium 3.6. Creatinine 1.0. Glucose 169. C-reactive protein 6.7. This is day #5 of Remdesivir. Continued on IV Solu-Medrol, Levaquin vitamin C, vitamin D, melatonin, zinc. Objective - Vital Signs Vital signs: Vital Signs Temp 98 F 10/18/20 11:00 Pulse 79 10/18/20 11:00 Resp 18 10/18/20 11:00 BP 187/80 10/18/20 11:00 Pulse Ox 93 L 10/18/20 11:00 Intake & Output 10/17/20 10/18/20 10/18/20 18:59 06:59 18:59 Intake Total 730 7.983 17.1 Balance 730 7.983 17.1 Intake: Intake, IV Titration 250 7.983 17.1 Amount Insulin Regular 100 unit 7.983 17.1 In Sodium Chloride 0.9% 100 ml @ Titrate IV .Q0M N[facility] Rx#:[id number] Remdesivir 100 mg In 250 Sodium Chloride 0.9% 250 ml @ 250 mls/hr IVPB HS NENITA Rx#:[id number] Oral 480 Other: Voiding Method Bedside Commode # Voids 1 2 # Bowel Movements 1 2 - Exam GENERAL EXAM: Alert, pleasant 70-year-old female patient, on 2 L nasal cannula, comfortable in no apparent distress. HEAD: Normocephalic. EYES: Normal reaction of pupils, equal size. NOSE: Clear with pink turbinates. THROAT: No erythema or exudates. NECK: No masses, no JVD. CHEST: No chest wall deformity. LUNGS: Equal air entry with few scattered rhonchi. CVS: S1 and S2 normal with no audible murmur, regular rhythm. ABDOMEN: No hepatosplenomegaly, normal bowel sounds, no guarding or rigidity. SPINE: No scoliosis or deformity SKIN: No rashes CENTRAL NERVOUS SYSTEM: No focal deficits, tone is normal in all 4 extremities. EXTREMITIES: There is no peripheral edema. No clubbing, no cyanosis. Peripheral pulses are intact. - Labs CBC & Chem 7: 10/18/20 05:37 10/18/20 05:37 Labs: Abnormal Lab Results - Last 24 Hours (Table) 10/17/20 10/17/20 10/17/20 Range/Units 07:17 16:45 20:21 Lymphocytes # (1.0-4.8) k/uL BUN (9.0-27.0) mg/dL Est GFR (CKD-EPI)NonAf (60.0-200.0) BUN/Creatinine Ratio (.00-20.00) Ratio Glucose (70-110) mg/dL POC Glucose (mg/dL) 130 H 354 H (75-99) mg/dL Hemoglobin A1c (4.0-6.0) % C-Reactive Protein 12.6 H (0.0-0.8) mg/dL 10/17/20 10/18/20 10/18/20 Range/Units 23:56 01:22 01:23 Lymphocytes # (1.0-4.8) k/uL BUN (9.0-27.0) mg/dL Est GFR (CKD-EPI)NonAf (60.0-200.0) BUN/Creatinine Ratio (12.00-20.00) Ratio Glucose (70-110) mg/dL POC Glucose (mg/dL) 268 H 163 H 152 H (75-99) mg/dL Hemoglobin A1c (4.0-6.0) % C-Reactive Protein (0.0-0.8) mg/dL 10/18/20 10/18/20 10/18/20 Range/Units 03:52 04:54 05:37 Lymphocytes # (1.0-4.8) k/uL BUN (9.0-27.0) mg/dL Est GFR (CKD-EPI)NonAf (60.0-200.0) BUN/Creatinine Ratio (12.00-20.00) Ratio Glucose (70-110) mg/dL POC Glucose (mg/dL) 121 H 150 H (75-99) mg/dL Hemoglobin A1c 8.0 H (4.0-6.0) % C-Reactive Protein (0.0-0.8) mg/dL 10/18/20 10/18/20 10/18/20 Range/Units 05:37 05:37 07:11 Lymphocytes # 0.7 L (1.0-4.8) k/uL BUN 29.0 H (9.0-27.0) mg/dL Est GFR (CKD-EPI)NonAf 56.6 L (60.0-200.0) BUN/Creatinine Ratio 29.00 H (12.00-20.00) Ratio Glucose 169 H (70-110) mg/dL POC Glucose (mg/dL) 174 H (75-99) mg/dL Hemoglobin A1c (4.0-6.0) % C-Reactive Protein 6.7 H (0.0-0.8) mg/dL 10/18/20 10/18/20 10/18/20 Range/Units 09:06 11:15 13:25 Lymphocytes # (1.0-4.8) k/uL BUN (9.0-27.0) mg/dL Est GFR (CKD-EPI)NonAf (60.0-200.0) BUN/Creatinine Ratio (12.00-20.00) Ratio Glucose (70-110) mg/dL POC Glucose (mg/dL) 185 H 262 H 236 H (75-99) mg/dL Hemoglobin A1c (4.0-6.0) % C-Reactive Protein (0.0-0.8) mg/dL Microbiology - Last 24 Hours (Table) 10/13/20 16:00 Blood Culture - Preliminary Blood No Growth after 96 hours 10/13/20 20:15 Gram Stain - Final Sputum Sputum Culture - Final Assessment and Plan Assessment: 1 Acute hypoxic respiratory failure secondary to CoVID 19 pneumonitis, receiving Remdesivir 2 Possibility of bacterial infection to be ruled out, procalcitonin level is elevated at 0.26, remains on Augmentin 3 Elevated d-dimer patient's covered with prophylactic dose of Lovenox 4 Shortness of breath, cough, fever, related to quit 19 pneumonia, rule out possibility of bacterial superinfection 5 Acute kidney injury 6 Mild lactic acidosis, improved with fluid resuscitation 7 Elevated inflammatory markers related to COVID 19 infection 8 History of breast cancer status post bilateral mastectomy 9 Hypertension 10 Hyperlipidemia 11 Anxiety and depression Plan: The patient was seen and evaluated by Dr. Levine Currently stable from the pulmonary standpoint, on 2 L nasal cannula This is day #5 of Remdesivir Continue IV Solu-Medrol, Lovenox, vitamin supplements Continue Augmentin Probable discharge in a.m. We will continue to follow I, the cosigning physician, performed a history & physical examination of the patient. Lungs sounds with few scattered rhonchi. Maintaining good O2 saturations in the 90s on 2 L/m per nasal cannula. I discussed the assessment and plan of care with my nurse practitioner, Dolores Ross. I attest to the above note as dictated by her.
[2020-10-18 15:07] LABS: Glucose,Whole Blood 194 mg/dL (75-99)
[2020-10-18 17:07] LABS: Glucose,Whole Blood 186 mg/dL (75-99)
[2020-10-18 19:08] LABS: Glucose,Whole Blood 217 mg/dL (75-99)
[2020-10-18 21:08] LABS: Glucose,Whole Blood 130 mg/dL (75-99)
[2020-10-18] MEDS: REMDESIVIR 100 MG in SODIUM CHLORIDE 0.9% 250 ML IVPB SCH (21:08)
--- NOTE | 2020-10-18 22:26 | PN ---
PROGRESS NOTE DATE OF SERVICE: 10/18/2020 REASON FOR FOLLOWUP: Acute COVID-19 pneumonia. INTERVAL HISTORY: The patient is currently afebrile. The patient is breathing more comfortably. Denies having any chest pain. She did have some cough, though decreased intensity, not bringing up any sputum. No nausea, no vomiting. No abdominal pain, no diarrhea. PHYSICAL EXAMINATION: Blood pressure 119/74 with a pulse of 84, temperature is 97.9. She is 93% on 2 L nasal cannula. General description is an elderly female lying in bed in no distress. Respiratory system: Unlabored breathing, decreased breath sounds at the base, no wheeze. Heart S1, S2. Regular rate and rhythm. Abdomen soft, no tenderness. LABS: Hemoglobin is 13.5, white count 5.4. BUN of 29, creatinine 1.0. Blood and sputum culture have been negative so far. DIAGNOSTIC IMPRESSION AND PLAN: Patient with acute COVID-19 pneumonia in this patient who has shown clinical improvement. She is currently being treated with Remdesivir, Solu-Medrol, zinc and Lovenox to continue along with respiratory support. Monitor clinical course closely. MMODL / IJN: [id number] /
[2020-10-18 23:18] LABS: Glucose,Whole Blood 155 mg/dL (75-99)
[2020-10-19 01:25] LABS: Glucose,Whole Blood 164 mg/dL (75-99)
[2020-10-19 04:51] LABS: Glucose,Whole Blood 128 mg/dL (75-99)
[2020-10-19 06:15] LABS: Glucose,Whole Blood 129 mg/dL (75-99)
[2020-10-19 08:04] LABS: Glucose,Whole Blood 156 mg/dL (75-99)
[2020-10-19] MEDS: allopurinoL 100 MG TAB PO SCH (08:35)
[2020-10-19] MEDS: AMOXIC-POT CLAV 500-125 MG 1 EACH TAB PO SCH ×2 (08:35→20:26)
[2020-10-19] MEDS: FENOFIBRATE 160 MG TAB PO SCH (08:35)
[2020-10-19] MEDS: FAMOTIDINE 20 MG TAB PO SCH (08:35)
[2020-10-19] MEDS: ZINC SULFATE 220 MG CAP PO SCH (08:35)
[2020-10-19] MEDS: ASCORBIC ACID 500 MG TAB PO SCH (08:35)
[2020-10-19] MEDS: OLANZapine 5 MG TAB PO SCH ×2 (08:35→20:26)
[2020-10-19] MEDS: BALSALAZIDE DISODIUM 750 MG CAPSULE PO SCH ×3 (08:36→22:49)
[2020-10-19] MEDS: ENOXAPARIN 40 MG/0.4 ML SYRINGE SQ SCH (08:36)
[2020-10-19] MEDS: clonazePAM 0.5 MG TAB PO SCH ×3 (08:36→22:50)
[2020-10-19] MEDS: METOPROLOL SUCCINATE (ER) 25 MG TAB.ER.24H PO SCH (08:36)
[2020-10-19] MEDS: FLUoxetine HCL 20 MG CAP PO SCH (08:36)
[2020-10-19] MEDS: methylPREDNISolone SOD SUCCI 40 MG/ML 1 ML VIAL IV SCH (08:37)
[2020-10-19] MEDS: ALBUTEROL HFA INHALER INHALATION SCH ×4 (08:50→21:03)
[2020-10-19 10:07] LABS: Glucose,Whole Blood 276 mg/dL (75-99)
--- NOTE | 2020-10-19 11:34 | P.PN ---
Progress Note - Text Progress Note Date: 10/18/20 Chief Complaint: Short of breath cough History of presenting complaint: Isaiahil a very pleasant 70-year-old patient of Dr. Persaud. Chronic stable medical conditions include diabetes, hyperlipidemia, hypertension, primary osteoarthritis, peripheral neuropathy, bilateral breast cancer with bilateral mastectomy, IBS, diverticulosis, chronic low back arthritis. Anxiety depression. For 2 weeks patient been having respiratory symptoms that have been progressive. Has got a cough. Congestion the chest. Fever or chills. Loose stools. Headache no loss of taste or smell. Presented to ER. Tested positive for COVID Admitted with COVID 19 pneumonia, sepsis, acute hypoxic respiratory failure, acute COPD exacerbation. Started on IV Solu-Medrol, subcu Lovenox, IV Remdesivir, bronchodilator. Today-continues to improve slowly. Oral intake improving. Breathing better. On nasal cannula. Review of systems: Was done for constitutional, cardiovascular, GI, pulmonary. relevant finding as above Current medications reviewed in today's electronic records. Physical examination: VITAL SIGNS: 98, 79, 18, 187/80, 93% on 2 L GENERAL: Laying in bed, looking better PSYCH: Alert and oriented x3; mood and affect less anxious. Rest of the exam per pulmonary and ID INVESTIGATIONS, reviewed in the clinical context: October 18: White count 5.4 hemoglobin 13.6 lymphocytes 0.7 potassium 3.6 creatinine 1.0 CRP 6.7 d-dimer 0.56 October 17: D-dimer 0.64 CRP 12.6 pro-calcitonin 0.26 October 16: D-dimer 0.69 CRP 7.9 LDH 338 October 15: D-dimer 0.72, CRP 17.1 Previous testing White count 4.4 hemoglobin 13.5 platelets 373 decreased lymphocytes at 0.8 D-dimer 0.62 sodium 134 potassium 4.2 bun 38 creatinine 1.56 Lactic acid 2.3 ferritin 354 LDH 672 CRP 76.4 pro-calcitonin 0.53 Coronavirus P/Cr-detected EKG tracing personally reviewed by me-sinus rhythm with some nonspecific T-wave changes Chest x-ray film personally reviewed by me-portable, possible infiltrate Assessment: -COVID 19 pneumonia-clinical response fair -Severe sepsis from improving -Acute hypoxic respiratory failure from pneumonia-on 2 L -Acute COPD exacerbation in an ex-smoker -Morbid obesity BMI 43.3 -Diabetes mellitus type 2 on oral hypoglycemic, uncontrolled with hyperglycemia from steroids started insulin drip -Hyperlipidemia -Essential hypertension -Primary osteoarthritis -Diabetic peripheral neuropathy -Chronic kidney disease stage III from diabetic nephropathy and hypertensive nephrosclerosis Plan: Cutback IV Solu-Medrol. Lovenox , on Remdesivir. Encourage activity and incentive spirometry. Swished to oral prednisone in the morning.
[2020-10-19] MEDS: SODIUM CHLORIDE 0.9% 1,000 ML IV SCH (11:42)
[2020-10-19 12:35] LABS: Glucose,Whole Blood 109 mg/dL (75-99)
[2020-10-19] MEDS ORDERED: INSULN ASP PRT/INSULIN ASPART 100 UNIT/ML 10 ML VIAL SQ ONE (13:11)
[2020-10-19] MEDS ORDERED: amLODIPine 5 MG TAB PO STA (13:32)
--- NOTE | 2020-10-19 14:21 | P.PN ---
Subjective Progress Note Date: 10/19/20 Principal diagnosis: Acute hypoxic respiratory failure secondary to CoVID 19 pneumonitis 70-year-old white female patient of Dr. Persaud, with past medical history of hypertension, hypercholesterolemia, anxiety, depression, breast cancer status post bilateral mastectomy, osteoarthritis who presented to the emergency department on 10/13/2020 for evaluation of increasing weakness, body aches and pains, and shortness of breath and cough. Apparently her was diagnosed with COVID 19. Chest x-ray was completed showing bibasilar mild lung infiltrates. She was started for COVID 19 and was found to be positive. She's been afebrile while in the hospital, with a T-max of 11.5F, she is currently on 2 L of oxygen with pulse ox of 94%, slightly tachycardic, in sinus mechanism. Admission labs have been reviewed showing white blood cell count of 4.4, hemoglobin of 13.5, leukocyte, 0.8, d-dimer of 0.62, sodium of 134, potassium is 4.2, chloride is 95, B1 of 30, creatinine is 1.56, glucose is 334, plasma lactic acid was mildly elevated at 2.3, LDH was 672, CRP was 76.4, LFTs were within normal limits, pro-calcitonin came back at 0.53. She was fluid resuscitated, s he received 500 mL and fluid bolus, and received another liter over several hours, currently IV fluids infusing and rate of 100 ML per hour, lactic acidosis has improved. The patient has been started on Lovenox 100 mg subcutaneously at bedtime, and IV steroids at 40 mg every 8 hours. The patient is seen today 10/15/2020 and follow-up on the regular medical floor. She is currently awake and alert in no acute distress. Maintaining O2 saturation in the 90s on 2 L/m per nasal cannula. She's afebrile. Blood and sputum cultures reveal no growth. D-dimer 0.72. C-reactive protein 17.1. Blood glucose 235. This is day #2 of Remdesivir. She has 0.9 normal sinus ML's per hour. Remains on IV Solu-Medrol, Lovenox. Continued on vitamin C, vitamin D, zinc, Pepcid, melatonin. Empiric antibiotics in the form of Augmentin. The patient is seen today 10/16/2020 follow-up on the regular medical floor. He is awake and alert in no acute distress. Maintaining O2 saturation in the 90s on 2 L/m per nasal cannula. This is day #3 of her Remdesivir. She is anxious to go home. Sputum culture reveals no growth. Blood culture reveals no growth. D-dimer 0.69. She remains on antibiotics in the form of Augmentin. Continue bronchodilators, IV steroids. Continued on vitamin supplements. The patient is seen today 10/17/2020 in follow-up on the regular medical floor. She remains awake and alert in no acute distress. Maintaining O2 saturations in the 90s on 2 L/m per nasal cannula. She's afebrile. Blood and sputum cultures reveal no growth. White count 4.2. Hemoglobin 13.2. Lymphocytes 0.7. D-dimer 0.64. Pro-calcitonin 0.26. Adelita on Augmentin. Continued on IV Solu-Medrol, Levaquin vitamin C, vitamin D, melatonin, zinc. This is day #4 of Remdesivir. The patient is seen today 10/18/2020 in follow-up on the regular medical floor. She is currently sitting up in bed. Awake and alert in no acute distress. Rectal maintaining O2 saturations in the 90s on 2 L/m per nasal cannula. She's afebrile. White count 5.4. Hemoglobin 13.6. D-dimer 0.56. Sodium 143. Potassium 3.6. Creatinine 1.0. Glucose 169. C-reactive protein 6.7. This is day #5 of Remdesivir. Continued on IV Solu-Medrol, Levaquin vitamin C, vitamin D, melatonin, zinc. The patient is seen today 10/19/2020 in follow-up on the regular medical floor. She is currently sitting up at the bedside. Awake and alert in no acute distress. She denies any shortness of breath, cough or congestion. Maintaining O2 saturations in the 90s on 3 L/m per nasal cannula. She does have home oxygen. She's been afebrile. Blood and sputum cultures revealed no growth. She is completed Remdesivir. Objective - Vital Signs Vital signs: Vital Signs Temp 98.2 F 10/19/20 11:00 Pulse 89 10/19/20 11:00 Resp 18 10/19/20 11:00 BP 187/82 12/06/20 11:00 Pulse Ox 93 L 10/19/20 11:00 Intake & Output 10/18/20 10/19/20 10/19/20 18:59 06:59 18:59 Intake Total 1234.000 28.700 25.942 Output Total 500 Balance 1234.000 -471.300 25.942 Intake: Intake, IV Titration 1234.000 28.700 25.942 Amount Insulin Regular 100 unit 34.000 28.700 25.942 In Sodium Chloride 0.9% 100 ml @ Titrate IV .Q0M [facility] Rx#:[id number] Sodium Chloride 0.9% 1, 1200 000 ml @ 100 mls/hr IV . Q10H [facility] Rx#:[id number] Output: Urine 500 Stool 0 Other: Voiding Method Bedside Commode - Exam GENERAL EXAM: Alert, pleasant 70-year-old female patient, on 3 L nasal cannula, comfortable in no apparent distress. HEAD: Normocephalic. EYES: Normal reaction of pupils, equal size. NOSE: Clear with pink turbinates. THROAT: No erythema or exudates. NECK: No masses, no JVD. CHEST: No chest wall deformity. LUNGS: Equal air entry with few scattered rhonchi. CVS: S1 and S2 normal with no audible murmur, regular rhythm. ABDOMEN: No hepatosplenomegaly, normal bowel sounds, no guarding or rigidity. SPINE: No scoliosis or deformity SKIN: No rashes CENTRAL NERVOUS SYSTEM: No focal deficits, tone is normal in all 4 extremities. EXTREMITIES: There is no peripheral edema. No clubbing, no cyanosis. Peripheral pulses are intact. - Labs CBC & Chem 7: 10/18/20 05:37 10/18/20 05:37 Labs: Abnormal Lab Results - Last 24 Hours (Table) 10/18/20 10/18/20 10/18/20 Range/Units 15:03 17:02 19:05 POC Glucose (mg/dL) 194 H 186 H 217 H (75-99) mg/dL 10/18/20 10/18/20 10/19/20 Range/Units 21:07 23:16 01:24 POC Glucose (mg/dL) 130 H 155 H 164 H (75-99) mg/dL 10/19/20 10/19/20 10/19/20 Range/Units 04:28 06:03 08:02 POC Glucose (mg/dL) 128 H 129 H 156 H (75-99) mg/dL 10/19/20 10/19/20 Range/Units 09:54 12:19 POC Glucose (mg/dL) 276 H 109 H (75-99) mg/dL Microbiology - Last 24 Hours (Table) 10/13/20 16:00 Blood Culture - Preliminary Blood No Growth after 120 hours Assessment and Plan Assessment: 1 Acute hypoxic respiratory failure secondary to CoVID 19 pneumonitis, completed Remdesivir 2 Possibility of bacterial infection to be ruled out, procalcitonin level is elevated at 0.26, remains on Augmentin 3 Elevated d-dimer patient's covered with prophylactic dose of Lovenox 4 Shortness of breath, cough, fever, related to quit 19 pneumonia, rule out possibility of bacterial superinfection 5 Acute kidney injury 6 Mild lactic acidosis, improved with fluid resuscitation 7 Elevated inflammatory markers related to COVID 19 infection 8 History of breast cancer status post bilateral mastectomy 9 Hypertension 10 Hyperlipidemia 11 Anxiety and depression Plan: The patient was seen and evaluated by Dr. Levine Completed Remdesivir Has home oxygen Complete a prednisone taper Cleared for discharge from the pulmonary standpoint I, the cosigning physician, performed a history & physical examination of the patient. Lungs sounds with few scattered rhonchi. Maintaining good O2 satu rations in the 90s on 3 L/m per nasal cannula. I discussed the assessment and plan of care with my nurse practitioner, Dolores Ross. I attest to the above note as dictated by her.
[2020-10-19 14:30] LABS: Glucose,Whole Blood 369 mg/dL (75-99)
[2020-10-19 17:14] LABS: Glucose,Whole Blood 313 mg/dL (75-99)
[2020-10-19] MEDS: INSULIN ASPART (NovoLOG) 100 UNIT/ML VIAL SQ SCH ×2 (18:13→20:26)
[2020-10-19] MEDS: METOPROLOL SUCCINATE (ER) 50 MG TAB.ER.24H PO SCH (18:49)
[2020-10-19 20:10] LABS: Glucose,Whole Blood 273 mg/dL (75-99)
[2020-10-19] MEDS ORDERED: INSULIN DETEMIR (LEVEMIR) 100 UNIT/ML SYR SQ SCH (21:00)
[2020-10-19] MEDS ORDERED: INSULIN ASPART (NovoLOG) 100 UNIT/ML VIAL SQ SCH (21:00)
--- NOTE | 2020-10-19 23:25 | PN ---
PROGRESS NOTE DATE OF SERVICE: 10/19/2020 REASON FOR FOLLOWUP: COVID-19 pneumonia. INTERVAL HISTORY: Patient is currently afebrile. Patient is breathing more comfortably. The patient denies having any chest pain. Minimal cough. No nausea. No vomiting. No abdominal pain or diarrhea. PHYSICAL EXAMINATION: Blood pressure 189/100 with a pulse of 79. Temperature 97.8. She is 92% on 2 L nasal cannula. General description is an elderly female up in the chair in no distress. Respiratory system: Unlabored breathing with decreased breath sounds in the base, with no wheeze. Heart S1, S2. Regular rate and rhythm. ABDOMEN: Soft, no tenderness. LABS: No new labs have been obtained today. DIAGNOSTIC IMPRESSION/PLAN: Patient with acute COVID-19 pneumonia in this patient currently on Remdesivir therapy currently on steroids to continue, slowly wean off her oxygen and continue supportive care. MMODL / IJN: [id number] /
[2020-10-20] MEDS: METOPROLOL SUCCINATE (ER) 50 MG TAB.ER.24H PO SCH (06:07)
[2020-10-20 07:18] LABS: Glucose,Whole Blood 56 mg/dL (75-99)
[2020-10-20] MEDS: INSULIN ASPART (NovoLOG) 100 UNIT/ML VIAL SQ SCH ×2 (07:23→13:37)
[2020-10-20 07:34] LABS: Glucose,Whole Blood 50 mg/dL (75-99)
[2020-10-20 08:15] LABS: Glucose,Whole Blood 82 mg/dL (75-99)
[2020-10-20] MEDS: ALBUTEROL HFA INHALER INHALATION SCH ×2 (08:51→12:14)
[2020-10-20] MEDS ORDERED: predniSONE 20 MG TAB PO SCH (09:00)
[2020-10-20] MEDS: FAMOTIDINE 20 MG TAB PO SCH (09:03)
[2020-10-20] MEDS: FENOFIBRATE 160 MG TAB PO SCH (09:03)
[2020-10-20] MEDS: AMOXIC-POT CLAV 500-125 MG 1 EACH TAB PO SCH (09:03)
[2020-10-20] MEDS: allopurinoL 100 MG TAB PO SCH (09:03)
[2020-10-20] MEDS: ASCORBIC ACID 500 MG TAB PO SCH (09:04)
[2020-10-20] MEDS: FLUoxetine HCL 20 MG CAP PO SCH (09:04)
[2020-10-20] MEDS: OLANZapine 5 MG TAB PO SCH (09:04)
[2020-10-20] MEDS: clonazePAM 0.5 MG TAB PO SCH (09:04)
[2020-10-20] MEDS: ZINC SULFATE 220 MG CAP PO SCH (09:04)
[2020-10-20] MEDS: BALSALAZIDE DISODIUM 750 MG CAPSULE PO SCH (09:05)
[2020-10-20] MEDS: ENOXAPARIN 40 MG/0.4 ML SYRINGE SQ SCH (09:31)
--- NOTE | 2020-10-20 10:23 | P.PN ---
Progress Note - Text Progress Note Date: 10/19/20 Chief Complaint: Short of breath cough History of presenting complaint: Isaiahil a very pleasant 70-year-old patient of Dr. Persaud. Chronic stable medical conditions include diabetes, hyperlipidemia, hypertension, primary osteoarthritis, peripheral neuropathy, bilateral breast cancer with bilateral mastectomy, IBS, diverticulosis, chronic low back arthritis. Anxiety depression. For 2 weeks patient been having respiratory symptoms that have been progressive. Has got a cough. Congestion the chest. Fever or chills. Loose stools. Headache no loss of taste or smell. Presented to ER. Tested positive for COVID Admitted with COVID 19 pneumonia, sepsis, acute hypoxic respiratory failure, acute COPD exacerbation. Started on IV Solu-Medrol, subcu Lovenox, IV Remdesivir, bronchodilator. Today-doing well. Eating well. Back to 2 L oxygen that she uses at home. . And blood pressures running high. Norvasc added. Lopressor dose increase. Review of systems: Was done for constitutional, cardiovascular, GI, pulmonary. relevant finding as above Current medications reviewed in today's electronic records. Physical examination: VITAL SIGNS: 98.2, 89, 18, 187/82, 93% on 3 L GENERAL: Sitting up, comfortable PSYCH: Alert and oriented x3; mood and affect normal. Rest of the exam per pulmonary and ID INVESTIGATIONS, reviewed in the clinical context: October 18: White count 5.4 hemoglobin 13.6 lymphocytes 0.7 potassium 3.6 creatinine 1.0 CRP 6.7 d-dimer 0.56 October 17: D-dimer 0.64 CRP 12.6 pro-calcitonin 0.26 October 16: D-dimer 0.69 CRP 7.9 LDH 338 October 15: D-dimer 0.72, CRP 17.1 Previous testing White count 4.4 hemoglobin 13.5 platelets 373 decreased lymphocytes at 0.8 D-dimer 0.62 sodium 134 potassium 4.2 bun 38 creatinine 1.56 Lactic acid 2.3 ferritin 354 LDH 672 CRP 76.4 pro-calcitonin 0.53 Coronavirus P/Cr-detected EKG tracing personally reviewed by me-sinus rhythm with some nonspecific T-wave changes Chest x-ray film personally reviewed by me-portable, possible infiltrate Assessment: -COVID 19 pneumonia-clinical response fair -Severe sepsis from improving -Acute hypoxic respiratory failure from pneumonia-on 2 L -Acute COPD exacerbation in an ex-smoker -Morbid obesity BMI 43.3 -Diabetes mellitus type 2 on oral hypoglycemic, uncontrolled with hyperglycemia from steroids started insulin drip -Hyperlipidemia -Essential hypertension with urgency -Primary osteoarthritis -Diabetic peripheral neuropathy -Chronic kidney disease stage III from diabetic nephropathy and hypertensive nephrosclerosis Plan: DC Solu-Medrol. DC IV fluids. Changed to prednisone 40 mg daily. Add amlodipine 5 mg twice a day. Increase Lopressor.
[2020-10-20] MEDS ORDERED: amLODIPine 10 MG TAB PO SCH (10:30)
[2020-10-20 11:53] LABS: Glucose,Whole Blood 252 mg/dL (75-99)
[2020-10-20 12:10] VITALS: BP 150/60; RESP 17; TEMP 98.4
[2020-10-20 12:11] VITALS: PULSE 3
--- NOTE | 2020-10-20 13:19 | P.PN ---
Subjective Progress Note Date: 10/20/20 On 10/20/2020, the patient is doing extremely well. She is on oxygen at 3 L per minute nasal cannula. The patient will be discharged home on home oxygen. She received inpatient treatment for her coronary bypass, 19 infection. The patient completed Remdesivir and she also completed steroids, vitamin C, vitamin D, melatonin and zinc. The patient is feeling well. No nausea. No vomiting. No diarrhea. Pro-calcitonin level was 0.26. The patient's HbA1c is at 8. LDH level is down to 338 and the CRP is on. 0.7. She is ambulating. She is able to get discharged home. Objective - Vital Signs Vital signs: Vital Signs Temp 98.4 F 10/20/20 11:00 Pulse 3 L 10/20/20 12:10 Resp 17 10/20/20 11:00 BP 150/60 10/20/20 11:00 Pulse Ox 93 L 10/20/20 12:10 Intake & Output 10/19/20 10/20/20 10/20/20 18:59 06:59 18:59 Intake Total 25.942 Output Total 0 Balance 25.942 0 Intake: Intake, IV Titration 25.942 Amount Insulin Regular 100 unit 25.942 In Sodium Chloride 0.9% 100 ml @ Titrate IV .Q0M [facility] Rx#:[id number] Output: Stool 0 Other: Voiding Method Bedside Commode Bedside Commode # Voids 3 1 # Bowel Movements 1 - Exam GENERAL EXAM: Alert, pleasant 70-year-old female patient, on 3 L nasal cannula, comfortable in no apparent distress. HEAD: Normocephalic. EYES: Normal reaction of pupils, equal size. NOSE: Clear with pink turbinates. THROAT: No erythema or exudates. NECK: No masses, no JVD. CHEST: No chest wall deformity. LUNGS: Equal air entry with few scattered rhonchi. CVS: S1 and S2 normal with no audible murmur, regular rhythm. ABDOMEN: No hepatosplenomegaly, normal bowel sounds, no guarding or rigidity. SPINE: No scoliosis or deformity SKIN: No rashes CENTRAL NERVOUS SYSTEM: No focal deficits, tone is normal in all 4 extremities. EXTREMITIES: There is no peripheral edema. No clubbing, no cyanosis. Peripheral pulses are intact. - Labs CBC & Chem 7: 10/18/20 05:37 10/18/20 05:37 Labs: Abnormal Lab Results - Last 24 Hours (Table) 10/19/20 10/19/20 10/19/20 Range/Units 14:28 17:12 20:04 POC Glucose (mg/dL) 369 H 313 H 273 H (75-99) mg/dL 10/20/20 10/20/20 10/20/20 Range/Units 07:16 07:32 11:50 POC Glucose (mg/dL) 56 L 50 L 252 H (75-99) mg/dL Microbiology - Last 24 Hours (Table) 10/13/20 16:00 Blood Culture - Final Blood No Growth after 144 hours Assessment and Plan Plan: 1 Acute hypoxic respiratory failure secondary to CoVID 19 pneumonitis, completed Remdesivir 2 Possibility of bacterial infection to be ruled out, procalcitonin level is elevated at 0.26, remains on Augmentin 3 Elevated d-dimer patient's covered with prophylactic dose of Lovenox 4 Shortness of breath, cough, fever, related to quit 19 pneumonia, rule out possibility of bacterial superinfection 5 Acute kidney injury 6 Mild lactic acidosis, improved with fluid resuscitation 7 Elevated inflammatory markers related to COVID 19 infection 8 History of breast cancer status post bilateral mastectomy 9 Hypertension 10 Hyperlipidemia 11 Anxiety and depression Plan: discharge this patient home to complete a total of 10 day course of steroid treatmentWith Decadron 6 mg by mouth daily. I do not see the need for antibiotic treatment. There is no signs of any superinfection. Oxygen is been delivered to the patient to be delighted 3 L per minute nasal cannula. Follow- up in the office. Monitor the blood sugars. No other issues for now. Was seen as an outpatient basis.
--- NOTE | 2020-10-20 14:54 | P.PN ---
Subjective Progress Note Date: 10/20/20 HISTORY OF PRESENT ILLNESS This is a 70-year-old female patient admitted to the hospital for CO VID-19 pneumonia. Repeat chest x-ray reveals difficult to exclude pneumonia. The patient states that cough is improving and less frequent. Diarrhea is also improving. She denies having any abdominal pain. Patient has been afebrile for 48 hours. Pulse ox is now 94% on 2 L nasal cannula. Heart rate 99, blood pressure 135/77. Sputum culture is in progress. Blood culture no growth at 48 hours. She is currently on day #3/5 of Remdesivir course. 10/17: Patient states she is feeling okay today. Breathing status is improving. She is currently a pulse ox see 91% on 2 L nasal cannula. She denies any chest pain. She continues to have a cough that is nonproductive. No abdominal pain, nausea or vomiting. She denies any diarrhea. Temperature max 102.8 at 3 PM yesterday. Repeat d-dimer 0.64. Pro-calcitonin 2.26. Blood sugars are elevated. 10/20: Patient states that her breathing status is stable. She denies shortness of breath, no significant cough today. Pulse ox is 94% on 3 L nasal cannula, afebrile. Patient denies any abdominal symptoms such as pain, nausea vomiting, diarrhea. She has completed course of Remdesivir and continued on steroids, supplements. PHYSICAL EXAMINATION Gen: This is a morbidly obese 70-year-old female. Patient is resting in bed appears to be comfortable and in no acute distress. HEENT: Head is atraumatic, normocephalic. Pupils equal, round. Sclerae is anicteric. LUNGS: Clear to auscultation. No wheezes or rhonchi. No intercostal retractions. HEART: Regular rate and rhythm. No murmur. ABDOMEN: Soft. Bowel sounds are present. No masses. No tenderness. EXTREMITIES: No pedal edema. NEUROLOGICAL: Patient is awake, alert and oriented x3. ASSESSMENT Covid 19 pneumonia Acute hypoxic respiratory failure, improving Possible bacterial pneumonia Elevated inflammatory marker secondary to Covid 19 History of breast cancer PLAN Completed course of Remdesivir Continue supplementation with zinc, vitamin C, vitamin D Continue Augmentin for possible bacterial pneumonia Continue prednisone Patient is stable and cleared for discharge from infectious disease and can be discharged on oral prednisone, oral antibiotics and supplements The above dictated assessment and findings were discussed with Dr. Bass. The impression and plan of care have been directed as dictated. Ioana Cardona nurse practitioner acting as scribe for Dr. Bass. Objective - Vital Signs Vital signs: Vital Signs Temp 98.4 F 10/20/20 11:00 Pulse 3 L 10/20/20 12:10 Resp 17 10/20/20 11:00 BP 150/60 10/20/20 11:00 Pulse Ox 93 L 10/20/20 12:10 Intake & Output 10/19/20 10/20/20 10/20/20 18:59 06:59 18:59 Intake Total 25.942 Output Total 0 Balance 25.942 0 Intake: Intake, IV Titration 25.942 Amount Insulin Regular 100 unit 25.942 In Sodium Chloride 0.9% 100 ml @ Titrate IV .Q0M [facility] Rx#:[id number] Output: Stool 0 Other: Voiding Method Bedside Commode Bedside Commode # Voids 3 1 # Bowel Movements 1 - Labs CBC & Chem 7: 10/18/20 05:37 10/18/20 05:37 Labs: Abnormal Lab Results - Last 24 Hours (Table) 10/19/20 10/19/20 10/19/20 Range/Units 14:28 17:12 20:04 POC Glucose (mg/dL) 369 H 313 H 273 H (75-99) mg/dL 10/20/20 10/20/20 10/20/20 Range/Units 07:16 07:32 11:50 POC Glucose (mg/dL) 56 L 50 L 252 H (75-99) mg/dL Microbiology - Last 24 Hours (Table) 10/13/20 16:00 Blood Culture - Final Blood No Growth after 144 hours
[2020-10-20] MEDS ORDERED: METOPROLOL TARTRATE 50 MG TAB PO SCH (21:00)
--- NOTE | 2020-10-21 19:25 | P.DS ---
Providers Date of admission: 10/13/20 22:14 Expected date of discharge: 10/21/20 Attending physician: Nickolas Crespo Consults: 10/13/20 22:14 Consult Physician Routine Consulting Provider: Philomena Bass Consult Reason/Comments: covid Do you want consulting provider notified?: Yes 10/14/20 10:45 Consult Physician Routine Consulting Provider: Romeo Levine Consult Reason/Comments: covid Do you want consulting provider notified?: Yes Primary care physician: [facility] Course: Chief Complaint: Short of breath cough History of presenting complaint: Estil a very pleasant 70-year-old patient of Dr. Persaud. Chronic stable medical conditions include diabetes, hyperlipidemia, hypertension, primary osteoarthritis, peripheral neuropathy, bilateral breast cancer with bilateral mastectomy, IBS, diverticulosis, chronic low back arthritis. Anxiety depression. For 2 weeks patient been having respiratory symptoms that have been progressive. Has got a cough. Congestion the chest. Fever or chills. Loose stools. Headache no loss of taste or smell. Presented to ER. Tested positive for COVID Admitted with COVID 19 pneumonia, sepsis, acute hypoxic respiratory failure, acute COPD exacerbation. Started on IV Solu-Medrol, subcu Lovenox, IV Remdesivir, bronchodilator. Patient responded well. Blood pressure is running high medication adjusted. Today-down to 2 L of nasal cannula that she uses all at home. Breathing improved. Oral intake fair. Care was discussed with the patient. Blood pressure medication adjusted. Discussion and discharge planning more than 35 minutes Color Television Console Monitor: Dr. Mitchell from pulmonary Physical examination: VITAL SIGNS: 98.4, 98, 17, 150/60, 94% on 3 L GENERAL: Sitting up, comfortable PSYCH: Alert and oriented x3; mood and affect normal. Rest of the exam per pulmonary and ID INVESTIGATIONS, reviewed in the clinical context: October 18: White count 5.4 hemoglobin 13.6 lymphocytes 0.7 potassium 3.6 creatinine 1.0 CRP 6.7 d-dimer 0.56 October 17: D-dimer 0.64 CRP 12.6 pro-calcitonin 0.26 October 16: D-dimer 0.69 CRP 7.9 LDH 338 October 15: D-dimer 0.72, CRP 17.1 Previous testing White count 4.4 hemoglobin 13.5 platelets 373 decreased lymphocytes at 0.8 D-dimer 0.62 sodium 134 potassium 4.2 bun 38 creatinine 1.56 Lactic acid 2.3 ferritin 354 LDH 672 CRP 76.4 pro-calcitonin 0.53 Coronavirus P/Cr-detected EKG tracing personally reviewed by me-sinus rhythm with some nonspecific T-wave changes Chest x-ray film personally reviewed by me-portable, possible infiltrate Assessment: -COVID 19 pneumonia- POA -Severe sepsis from pneumonia-POA -Acute hypoxic respiratory failure from pneumonia-on 2 L -Chronic hypoxic respiratory failure on home oxygen 2 L -Acute COPD exacerbation in an ex-smoker -Morbid obesity BMI 43.3 -Diabetes mellitus type 2 on oral hypoglycemic, uncontrolled with hyperglycemia from steroids started insulin drip -Hyperlipidemia -Essential hypertension with urgency -Primary osteoarthritis -Diabetic peripheral neuropathy -Chronic kidney disease stage III from diabetic nephropathy and hypertensive nephrosclerosis Disposition: Home Patient Condition at Discharge: Stable Plan - Discharge Summary Discharge Rx Participant: No New Discharge Prescriptions: New Amoxic-Pot Clav 500-125 mg [Augmentin 500-125 mg] 1 each PO Q12HR #4 tab Zinc Sulfate [Orazinc] 220 mg PO DAILY #30 cap Famotidine [Pepcid] 20 mg PO DAILY #30 tab Ascorbic Acid [Vitamin C] 500 mg PO DAILY #30 tab predniSONE 0 mg PO DIRECTED #10 tab Budesonide-Formot 160-4.5 Mcg [Symbicort 160-4.5 Mcg Inhaler] 2 puff INHALATION BID #1 inhaler Ipratropium-Albuterol Nebulize [Duoneb 0.5 mg-3 mg/3 ml Soln] 3 ml INHALATION TID #90 neb amLODIPine [Norvasc] 5 mg PO DAILY #30 tab Metoprolol Tartrate [Lopressor] 50 mg PO BID #60 tab Continue Mesalamine [Delzicol] 800 mg PO TID FLUoxetine HCL [PROzac] 40 mg PO DAILY clonazePAM [KlonoPIN] 0.5 mg PO TID OLANZapine [ZyPREXA] 5 mg PO BID Fenofibrate Nanocrystallized [Tricor] 145 mg PO DAILY Ergocalciferol [Vitamin D2 (DRISDOL)] 50,000 unit PO TH Cinacalcet [Sensipar] 30 mg PO DIRECTED Allopurinol [Zyloprim] 100 mg PO DAILY Furosemide [Lasix] 40 mg PO DAILY INSULIN LISPRO (humaLOG) [humaLOG] 6 units SQ BID Pioglitazone [Actos] 15 mg PO DAILY Changed Insulin Glargine [Lantus] 50 unit SQ HS #0 Discontinued Metoprolol Succinate [Toprol XL] 12.5 mg PO DAILY Discharge Medication List FLUoxetine HCL [PROzac] 40 mg PO DAILY 05/03/14 [History] Fenofibrate Nanocrystallized [Tricor] 145 mg PO DAILY 05/03/14 [History] Mesalamine [Delzicol] 800 mg PO TID 05/03/14 [History] OLANZapine [ZyPREXA] 5 mg PO BID 05/03/14 [History] clonazePAM [KlonoPIN] 0.5 mg PO TID 05/03/14 [History] Ergocalciferol [Vitamin D2 (DRISDOL)] 50,000 unit PO TH 12/06/14 [History] Cinacalcet [Sensipar] 30 mg PO DIRECTED 12/31/15 [History] Allopurinol [Zyloprim] 100 mg PO DAILY 10/13/20 [History] Furosemide [Lasix] 40 mg PO DAILY 10/13/20 [History] INSULIN LISPRO (humaLOG) [humaLOG] 6 units SQ BID 10/13/20 [History] Pioglitazone [Actos] 15 mg PO DAILY 10/13/20 [History] Amoxic-Pot Clav 500-125 mg [Augmentin 500-125 mg] 1 each PO Q12HR #4 tab 10/19/20 [Rx] Ascorbic Acid [Vitamin C] 500 mg PO DAILY #30 tab 10/19/20 [Rx] Budesonide-Formot 160-4.5 Mcg [Symbicort 160-4.5 Mcg Inhaler] 2 puff INHALATION BID #1 inhaler 10/19/20 [Rx] Famotidine [Pepcid] 20 mg PO DAILY #30 tab 10/19/20 [Rx] Insulin Glargine [Lantus] 50 unit SQ HS #0 10/19/20 [Rx] Ipratropium-Albuterol Nebulize [Duoneb 0.5 mg-3 mg/3 ml Soln] 3 ml INHALATION TID #90 neb 10/19/20 [Rx] Zinc Sulfate [Orazinc] 220 mg PO DAILY #30 cap 10/19/20 [Rx] amLODIPine [Norvasc] 5 mg PO DAILY #30 tab 10/19/20 [Rx] predniSONE 0 mg PO DIRECTED #10 tab 10/19/20 [Rx] Metoprolol Tartrate [Lopressor] 50 mg PO BID #60 tab 10/20/20 [Rx] Follow up Appointment(s)/Referral(s): Cabrera Persaud DO [Primary Care Provider] - 10/23/20 11:40 am [facility] [NON-STAFF] - Romeo Levine DO [Doctor of Osteopathic Medicine] - 11/20/20 1:15 pm Patient Instructions/Handouts: Famotidine (By mouth), Prednisone (By mouth), Zinc Sulfate (By mouth), Amoxicillin/Clavulanate Potassium (By mouth), Ascorbic Acid (By mouth), Amlodipine (By mouth), Ipratropium/Albuterol (By breathing), Budesonide/Formoterol (By breathing), SARS (Severe Acute Respiratory Syndrome) (DC) Activity/Diet/Wound Care/Special Instructions: covid 19 instructions Patient will require a nebulizer due to COPD. Failed inhalers. Discharge Disposition: HOME SELF-CARE
== END 2020-10-20 14:45 | disposition home or self-care (01) | DRG 871 ==
LOC: EC 14:24 → 6NMEDSUR 22:14
PROVIDERS: ADMIT Hospitalist; ATTEND Hospitalist
PROC: XW033E5 Introduction of Remdesivir Anti-infective into Peripheral Vein, Percutaneous Approach, New Technology Group 5 (ICD-10-PCS; principal; 2020-10-14)
DX: A41.89 Other specified sepsis (principal); J12.89 Other viral pneumonia; J96.21 Acute and chronic respiratory failure with hypoxia; U07.1 COVID-19; J15.9 Unspecified bacterial pneumonia; J44.0 Chronic obstructive pulmonary disease with (acute) lower respiratory infection; J44.1 Chronic obstructive pulmonary disease with (acute) exacerbation; N17.9 Acute kidney failure, unspecified; Z68.41 Body mass index [BMI] 40.0-44.9, adult; E11.22 Type 2 diabetes mellitus with diabetic chronic kidney disease; E11.42 Type 2 diabetes mellitus with diabetic polyneuropathy; E11.65 Type 2 diabetes mellitus with hyperglycemia; E66.01 Morbid (severe) obesity due to excess calories; E78.00 Pure hypercholesterolemia, unspecified; E78.5 Hyperlipidemia, unspecified; I12.9 Hypertensive chronic kidney disease with stage 1 through stage 4 chronic kidney disease, or unspecified chronic kidney disease; K57.90 Diverticulosis of intestine, part unspecified, without perforation or abscess without bleeding; K58.9 Irritable bowel syndrome, unspecified; M47.9 Spondylosis, unspecified; N18.30 Chronic kidney disease, stage 3 unspecified; R65.20 Severe sepsis without septic shock; T38.0X5A Adverse effect of glucocorticoids and synthetic analogues, initial encounter; M15.9 Polyosteoarthritis, unspecified; F41.9 Anxiety disorder, unspecified; F32.9 Major depressive disorder, single episode, unspecified; G89.29 Other chronic pain; I16.0 Hypertensive urgency; Z79.4 Long term (current) use of insulin; Z79.899 Other long term (current) drug therapy; Z96.652 Presence of left artificial knee joint; Z90.710 Acquired absence of both cervix and uterus; Z90.13 Acquired absence of bilateral breasts and nipples; Z87.891 Personal history of nicotine dependence; Z85.3 Personal history of malignant neoplasm of breast; Z87.440 Personal history of urinary (tract) infections; Z87.19 Personal history of other diseases of the digestive system; Z96.1 Presence of intraocular lens; Z98.42 Cataract extraction status, left eye; Z98.41 Cataract extraction status, right eye; Z80.0 Family history of malignant neoplasm of digestive organs; Z82.49 Family history of ischemic heart disease and other diseases of the circulatory system; Z82.5 Family history of asthma and other chronic lower respiratory diseases
CPT/HCPCS: 36415; 71045; 80048; 80053; 82728; 83036; 83605; 83615; 83735; 84145; 85025; 85379; 85610; 85730; 86140; 87040; 87070; 87205; 87635; 93005; 94640; 96360; 96361; 99285

== ENCOUNTER 2020-12-12 06:25 | Day surgery (SDC) | payer MEDICARE, OTHER ==
[2020-12-10 11:36] VITALS: BMI 32.3
[2020-12-12 07:10] VITALS: RESP 16; TEMP 97.7
[2020-12-12 07:11] LABS: Glucose,Whole Blood 167 mg/dL (75-99)
[2020-12-12] MEDS ORDERED: LACTATED RINGERS 1,000 ML IV ONE (07:11)
[2020-12-12] MEDS ORDERED: PROPOFOL 10 MG/ML 20 ML VIAL IV ONE (07:34)
--- NOTE | 2020-12-12 07:48 | P.PCN ---
Date of Procedure: 12/12/20 Procedure(s) Performed: BRIEF HISTORY: Patient is a 70-year-old pleasant female scheduled for an elective colonoscopy as a part of surveillance and history of ulcerative colitis diagnosed about 15 years ago. She is maintained on Asacol 800 mg 3 times daily. Recently been having severe diarrhea with bowel movements anywhere from 7-10 a day which are loose to watery in consistency but no blood in the stool and hence scheduled for colonoscopy to evaluate further. PROCEDURE PERFORMED: Colonoscopy with random biopsies. PREOPERATIVE DIAGNOSIS: Long-standing history of ulcerative colitis/chronic diarrhea. IV sedation per Anesthesia. PROCEDURE: After informed consent was obtained, the patient, was brought into the endoscopy unit. IV sedation was administered by Anesthesia under continuous monitoring. Digital rectal examination was normal. Initially the Olympus CF-160 flexible video colonoscope was then inserted in the rectum, gradually advanced into the cecum without any difficulty. Careful examination was performed as the scope was gradually being withdrawn. Ileocecal valve and the appendiceal orifice were visualized and appeared normal. Prep was excellent. Mucosa of the cecum, ascending colon, transverse colon, descending colon, sigmoid colon, and rectum appeared normal. Moderate left-sided diverticulosis seen. Retroflexion was performed in the rectum and no lesions were seen. The patient tolerated the procedure well. IMPRESSION: Normal-appearing colon from rectum to cecum with no evidence of active colitis or colorectal neoplasia. Moderate left-sided diverticulosis RECOMMENDATIONS: Findings of this examination were discussed with the patient as well as her family. She was advised to follow with the biopsy results. She'll be seen in office in a week.. In the meantime she will continue with her current medications.
[2020-12-12 08:02] VITALS: BP 136/74; PULSE 72
== END 2020-12-12 08:32 | disposition home or self-care (01) ==
LOC: ORWHC2ENDO 06:25
PROVIDERS: ATTEND Internal Medicine Gastroenterology
DX: K51.90 Ulcerative colitis, unspecified, without complications (principal); K57.30 Diverticulosis of large intestine without perforation or abscess without bleeding; I10 Essential (primary) hypertension; E78.5 Hyperlipidemia, unspecified; G47.33 Obstructive sleep apnea (adult) (pediatric); E11.40 Type 2 diabetes mellitus with diabetic neuropathy, unspecified; Z79.4 Long term (current) use of insulin; Z79.899 Other long term (current) drug therapy; Z97.2 Presence of dental prosthetic device (complete) (partial); Z96.652 Presence of left artificial knee joint; Z90.710 Acquired absence of both cervix and uterus; Z98.890 Other specified postprocedural states; Z86.16 Personal history of COVID-19
CPT/HCPCS: 88305; 45380; J2704

== ENCOUNTER → 2022-01-19 | Outpatient (CLI) | payer MEDICARE, OTHER ==
--- NOTE | 2022-01-19 18:46 | US ---
EXAMINATION TYPE: US kidneys/renal and bladder DATE OF EXAM: 01/19/2022 COMPARISON: 04/13/2018 CLINICAL HISTORY: 71-year-old female N18.32 chronic kidney stage 3b. TECHNIQUE: Multiple sonographic images of the kidneys and bladder are obtained. FINDINGS: EXAM MEASUREMENTS: Right Kidney: 10.2 x 5.2 x 4.9 cm Left Kidney: 10.0 x 4.8 x 5.1 cm Director Engineering notes:Difficult and limited study due to patient body habitus Right Kidney: 1.1cm cortical cyst at the midpole versus 7 mm in 2018. Low-level echoes are felt to be artifactual. No hydronephrosis. Left Kidney: No hydronephrosis or masses seen Bladder: Under distention limits evaluation. Bilateral Jets seen: no IMPRESSION: 1. No hydronephrosis. 2. A 1.1 cm cortical cyst suggested at the right kidney midpole versus 7 mm in 2018. Low-level echoes are felt to be artifactual. There is overall limitation in the exam due to patient body habitus.
== END | disposition home or self-care (01) ==
LOC: RADUSWWP 12:15
PROVIDERS: ATTEND Internal Medicine Nephrology
DX: N18.32 Chronic kidney disease, stage 3b (principal)
CPT/HCPCS: 76770

== ENCOUNTER → 2022-03-18 | Outpatient (CLI) | payer MEDICARE, OTHER | END | disposition home or self-care (01) | LOC: LABWHC1 10:20 | PROVIDERS: ATTEND Orthopaedic Surgery | DX: M17.11 Unilateral primary osteoarthritis, right knee (principal); M25.562 Pain in left knee; Z96.652 Presence of left artificial knee joint | CPT/HCPCS: 36415; 85379; 85652; 86140 ==

== ENCOUNTER → 2022-05-26 | Outpatient (CLI) | payer MEDICARE, OTHER ==
--- NOTE | 2022-05-26 15:35 | CT ---
EXAMINATION TYPE: CT right knee - [facility] Protocol DATE OF EXAM: 05/26/2022 COMPARISON: None HISTORY: RT knee pain. [facility] PROTOCOL CT DLP: 725.[address] of the right lower extremity for [facility] planning FINDINGS: Degenerative changes are seen about the right hip. There is degenerative narrowing medial t ibiofemoral joint space with the marginal bony spur. Mild degenerative change about the right ankle. No bony lesions or fractures evident. IMPRESSION: [facility] planning
== END | disposition home or self-care (01) ==
LOC: RADCTMAIN 14:35
PROVIDERS: ATTEND Orthopaedic Surgery
DX: M17.11 Unilateral primary osteoarthritis, right knee (principal); T84.84XD Pain due to internal orthopedic prosthetic devices, implants and grafts, subsequent encounter; E11.9 Type 2 diabetes mellitus without complications; M25.462 Effusion, left knee; Z96.652 Presence of left artificial knee joint

== ENCOUNTER → 2022-06-08 | Outpatient (CLI) | payer MEDICARE, OTHER ==
[2022-06-08 11:25] LABS: INR 0.9 (<1.2); Partial Thromboplastin Time 29.7 sec (22.0-30.0); Prothrombin Time 9.9 sec (9.0-12.0)
[2022-06-08 14:17] LABS: HCT 41.9 % (37.2-46.3); HGB 12.7 g/dL (12.0-15.0); MCH 28.1 pg (27.0-32.0); MCHC 30.3 g/dL (32.0-37.0); MCV 92.7 fL (80.0-97.0); Mean Platelet Volume 9.6 fL (9.5-12.2); NRBC Per 100 WBC 0 /100 WBCS (0.0-0.0); Platelet Count 413 X 10*3/uL (140-440); RBC 4.52 X 10*6/uL (4.10-5.20); RDW 14.5 % (11.5-14.5); WBC 9.51 X 10*3/uL (4.50-10.00)
[2022-06-08 14:30] LABS: African American GFR (CKD) 52.3 (60.0-200.0); Albumin 4.1 g/dL (3.8-4.9); Albumin/Globulin Ratio 1.81 (1.60-3.17); Anion Gap 11.8 mmol/L (10.00-18.00); BUN/Creat Ratio 15.33 Ratio (12.00-20.00); Blood Urea Nitrogen 18.4 mg/dL (9.0-27.0); Calcium 9.7 mg/dL (8.7-10.3); Carbon Dioxide 28.7 mmol/L (20.0-27.5); Globulin 2.3 g/dL (1.6-3.3); Non-African American GFR(CKD) 45.1 (60.0-200.0); Potassium 4.5 mmol/L (3.5-5.5); Total Bilirubin 0.3 mg/dL (0.30-1.20); Total Protein 6.4 g/dL (6.2-8.2)
[2022-06-08 15:42] LABS: Appearance,Urine Clear (Clear); Bilirubin,Urine Negative (Negative); Blood,Urine Negative (Negative); Color,Urine Yellow (Yellow); Ketones,Urine Negative (Negative); Nitrite,Urine Negative (Negative); Urobilinogen,Urine 0.2 (0.2,1.0)
[2022-06-08 15:48] LABS: Bacteria,Urine None Seen /HPF (None Seen)
== END | disposition home or self-care (01) ==
LOC: LABPAT 09:14
PROVIDERS: ATTEND Orthopaedic Surgery
DX: Z01.812 Encounter for preprocedural laboratory examination (principal); M17.11 Unilateral primary osteoarthritis, right knee
CPT/HCPCS: 80053; 81001; 85027; 85610; 85730; 87070; 93005

== ENCOUNTER → 2022-07-16 | Outpatient (CLI) | payer MEDICARE, OTHER ==
[2022-07-16 10:11] LABS: INR 0.9 (<1.2); Partial Thromboplastin Time 28.4 sec (22.0-30.0); Prothrombin Time 10.4 sec (9.0-12.0)
[2022-07-16 15:09] LABS: HCT 42.2 % (37.2-46.3); HGB 12.9 g/dL (12.0-15.0); MCH 28.7 pg (27.0-32.0); MCHC 30.6 g/dL (32.0-37.0); MCV 93.8 fL (80.0-97.0); Mean Platelet Volume 9.7 fL (9.5-12.2); NRBC Per 100 WBC 0 /100 WBCS (0.0-0.0); Platelet Count 414 X 10*3/uL (140-440); RDW 13.8 % (11.5-14.5); WBC 8.09 X 10*3/uL (4.50-10.00)
[2022-07-16 15:21] LABS: African American GFR (CKD) 51.9 (60.0-200.0); Albumin 4.1 g/dL (3.8-4.9); Albumin/Globulin Ratio 1.37 (1.60-3.17); Anion Gap 12.2 mmol/L (10.00-18.00); BUN/Creat Ratio 15.67 Ratio (12.00-20.00); Blood Urea Nitrogen 18.8 mg/dL (9.0-27.0); Calcium 10.1 mg/dL (8.7-10.3); Carbon Dioxide 25.8 mmol/L (20.0-27.5); Non-African American GFR(CKD) 44.8 (60.0-200.0); Potassium 4.4 mmol/L (3.5-5.5); Total Bilirubin 0.4 mg/dL (0.30-1.20); Total Protein 7.1 g/dL (6.2-8.2)
[2022-07-16 20:39] LABS: Appearance,Urine Clear (Clear); Bilirubin,Urine Negative (Negative); Blood,Urine Negative (Negative); Color,Urine Yellow (Yellow); Ketones,Urine Negative (Negative); Nitrite,Urine Negative (Negative); PH, Urine 5.5 (5.0-8.0); Specific Gravity,Urine 1.016 (1.001-1.030); Urobilinogen,Urine 0.2 (0.2,1.0)
[2022-07-16 20:45] LABS: Bacteria,Urine None Seen /HPF (None Seen)
== END | disposition home or self-care (01) ==
LOC: LABPAT 07:52
PROVIDERS: ATTEND Orthopaedic Surgery
DX: Z01.812 Encounter for preprocedural laboratory examination (principal); M17.11 Unilateral primary osteoarthritis, right knee
CPT/HCPCS: 36415; 80053; 81001; 85027; 85610; 85730; 87070

== ENCOUNTER 2022-07-23 11:42 | Day surgery (SDC) | payer MEDICARE, OTHER ==
[2022-07-21 14:14] VITALS: BMI 46.6
[~2022-07-23 11:42] MED LIST: ACETAMINOPHEN TAB 500 MG TAB PO PRN; DEXAMETHASONE SOD PHOSPHATE 10 MG/ML 1 ML VIAL IV PRN; DOCUSATE 100 MG CAP PO PRN; FAMOTIDINE 20 MG/2 ML VIAL IVP PRN; HYDROmorphone 0.5 MG/0.5 ML SYRINGE IVP PRN; KETOROLAC 15 MG/ML 1 ML VIAL IVP PRN; LACTATED RINGERS 1,000 ML IV SCH; MIDAZOLAM 2 MG/2 ML VIAL IV PRN; ONDANSETRON 4 MG/2 ML VIAL IVP PRN; TRANEXAMIC ACID IN NACL,ISO-OS 1,000 MG in SALINE 1 100ML.BAG IVPB PRN; oxyCODONE ER 10 MG TAB.ER.12H PO PRN
[2022-07-23 12:36] LABS: Glucose,Whole Blood 100 mg/dL (70-110)
[2022-07-23] MEDS ORDERED: MIDAZOLAM 2 MG/2 ML VIAL IVP ONE (13:00)
[2022-07-23] MEDS ORDERED: KETAMINE 10 MG/ML 20 ML VIAL ONE (14:06)
[2022-07-23] MEDS ORDERED: SODIUM CHLORIDE 0.9% (PF) 10 ML VIAL ONE (14:06)
[2022-07-23] MEDS ORDERED: fentaNYL (PF) 50 MCG/ML 2 ML AMP ONE (14:06)
[2022-07-23] MEDS ORDERED: ROPIVACAINE 5 MG/ML 30 ML VIAL ONE (14:06)
[2022-07-23] MEDS ORDERED: PROPOFOL 10 MG/ML 20 ML VIAL IV ONE (14:06)
[2022-07-23] MEDS ORDERED: TRANEXAMIC ACID IN NACL,ISO-OS 1,000 MG/100 ML BAG ONE (14:06)
[2022-07-23] MEDS ORDERED: MIDAZOLAM 2 MG/2 ML VIAL ONE (14:06)
[2022-07-23] MEDS ORDERED: diphenhydrAMINE 50 MG/ML 1 ML VIAL ONE (14:06)
--- NOTE | 2022-07-23 14:13 | P.ANPRN ---
Procedure Note - Anesthesia - Nerve Block Performed Right Adductor Canal Single Time Out Performed: Yes (1259) Date of Procedure: 07/23/22 Procedure Start Time: 13:00 Procedure Stop Time: 13:05 Location of Patient: PreOp Indication: Acute Post-Operative Pain, Requested by Surgeon Specifically requested for management of pain by DrDana: Neeraj Stack Sedation Type: Sedate with meaningful contact maintained Preparation: Sterile Prep Position: Supine Catheter: None Needle Types: Pajunk Needle Gauge: 21 Ultrasound used to visualize needle placement: Yes Ultrasound used to observe medication spread: Yes Injectate: 0.5% Ropivacaine (see comment for volume) (15cc + 15cc nacl pf) Blood Aspirated: No Pain Paresthesia on Injection Noted: No Resistance on Injection: Normal Image Stored and Saved: Yes Events: Uneventful and Well Tolerated
--- NOTE | 2022-07-23 14:14 | P.ANPRN ---
Procedure Note - Anesthesia - Nerve Block Performed Right iPack Single Time Out Performed: Yes (1259) Date of Procedure: 07/23/22 Procedure Start Time: 13:06 Procedure Stop Time: 13:11 Location of Patient: PreOp Indication: Acute Post-Operative Pain, Requested by Surgeon Specifically requested for management of pain by DrDana: Neeraj Stack Sedation Type: Sedate with meaningful contact maintained Preparation: Sterile Prep Position: Supine Catheter: None Needle Types: Pajunk Needle Gauge: 21 Ultrasound used to visualize needle placement: Yes Ultrasound used to observe medication spread: Yes Injectate: 0.5% Ropivacaine (see comment for volume) (15cc+ 15cc nacl pf) Blood Aspirated: No Pain Paresthesia on Injection Noted: No Resistance on Injection: Normal Image Stored and Saved: Yes Events: Uneventful and Well Tolerated
[2022-07-23] MEDS: ROPIVACAINE/EPI/CLONIDINE/KET 50 ML SYRINGE MISCELLANE PRN ×2 (15:19→16:00)
[2022-07-23] MEDS ORDERED: LACTATED RINGERS 1,000 ML IV ONE (15:35)
[2022-07-23] MEDS ORDERED: VANCOMYCIN 1,000 MG VIAL MISCELLANE ONE (16:05)
--- NOTE | 2022-07-23 16:36 | P.OP ---
Date of Procedure: 07/23/22 Preoperative Diagnosis: 1. Severe right knee osteoarthritis 2. BMI 47 3. Well-controlled type 2 diabetes Postoperative Diagnosis: Same Procedure(s) Performed: Right total knee arthroplasty Implants: 1. [place] [employer] CR Femur Size #3 2. [place] [employer] [place] Tibial Base Size #2 with 12x50 stem 3. [place] [employer] CS poly Size #2, 9-mm 4. [place] [employer] all poly patella, Size #29 Anesthesia: regional, spinal Surgeon: Neeraj Stack Six Pack Loader Operator #1: Aline Avendaño Estimated Blood Loss (ml): 150 IV fluids (ml): 1,200 Pathology: none sent Condition: stable Disposition: PACU Indications for Procedure: I met with the patient preoperatively in the office setting and discussed treatment of their symptomatic knee arthritis. They failed a long course of nonsurgical treatment and elected to proceed with an elective total knee replacement. We discussed the patient's weight and the risks associated with her elevated BMI of 47. She had a reasonable soft tissue envelope over the knee and well controlled diabetes. Despite her BMI 47 we both agreed that her knee pain was incapacitating and she had failed a lengthy course of nonsurgical treatment. She understands that she is a higher risk of complications from her BMI including infection, delayed wound healing, malalignment of implants due to technical difficulty given her size etc. She voiced her understanding of this. I discussed the potential risks and complications at length and gave them ample time to ask questions. Risks discussed included: risks from anesthesia, superficial site surgical infection, acute and/or chronic periprosthetic joint infection, delayed wound healing, drainage, wound necrosis, instability, stiffness, stiffness requiring manipulation and/or revision surgery, damage to local blood vessels or nerves, aseptic loosening of the implants, extensor mechanism issues including disruption, patellar maltracking, avascular necrosis etc., continued or worsened knee pain, generalized dissatisfaction with surgical outcome, need for revision surgery, an inability to regain preinjury level of function, DVT, PE, other medical complications, and possibly loss of life or limb. The patient voiced their understanding that while these are the most common complications other less common complications are possible. They provided both their verbal and written consent to go forward with surgery. Operative Findings: Severe tricompartmental osteoarthritis Description of Procedure: The patient was identified in preoperative holding and the correct operative extremity was verified and marked with a marker. I reviewed the consent form with the patient at length. All of their questions were answered. The patient was given a block by anesthesia. They were then brought back to the operating room. They were transferred onto the operating room table where a general anesthetic, preoperative antibiotics, and tranexamic acid were administered by anesthesia. A tourniquet was applied to the proximal aspect of the operative extremity. The contralateral extremity was padded under the heel and secured to the operating room table with a nonsterile blue towel and tape. The ipsilateral arm was carefully draped across the patient's chest and secured with a pillow and foam. A post was applied over the lateral aspect of the ipsilateral thigh and a bolster was placed under the ipsilateral foot. I verified that the operative extremity was stable and the knee was flexed to 90. The operative extremity was then placed in a leg rollins, nonsterile drapes were applied, and the extremity was prepped and draped sterilely in the standard sterile fashion. Prior to starting surgery timeout was performed identifying the correct patient, operative extremity, and procedure. The leg was then elevated, exsanguinated with an Esmarch bandage, and the tourniquet was inflated. An anterior midline incision was made sharply with a scalpel. Once I had dissected deep to the superficial fascial layer medial and lateral flaps were elevated. A medial parapatellar arthrotomy was created. Upon opening the knee joint there were diffuse arthritic changes in all 3 compartments. The anterior horn of the medial meniscus were sharply released and a medial release was performed around the posterior medial corner of the knee to facilitate retractor placement. The fat pad was excised with electrocautery. The patella was found to be severely arthritic and a provisional cut was made with a sagittal saw to facilitate mobilization of the extensor mechanism during the procedure. Remnants of the ACL and PCL were then excised from the notch. 4 mm pins were then placed within the incision in the medial distal femur and proximal tibia. Arrays were applied to the pins and I verified they were completely tightened. The knee was then registered with the Streem robot and manipulations in implant position were made to balance the knee and opitmize implant position. Using the Streem robotic saw all cuts were made in accordance with our plan. After all bony fragments had been removed the cuts were verified with the planar probe. The tibia was then subluxed forward and sized. The knee was brought into flexion and a lamina central office technician was placed to allow removal of the meniscal remnants both medially and laterally as well as posterior osteophytes. Local anesthetic was then infiltrated around the joint capsule. Trial implants were then placed within the knee. Range of motion and collateral ligament tension was then evaluated. Adjustments in implant size and position were then made accordingly. Once the knee was felt to be appropriately balanced the Julio pins were removed. The patella was then recut, sized, and punched. A trial patellar button was then placed. With the trial components in place, the patella tracked midline. The femur was then drilled and the trial component removed. The trial tibial component was then appropriately rotated, pinned, and prepared for the keel. Due to the patient's weight I elected to use a short stem on the tibial component. All trial components were then removed from the knee. The knee was thoroughly irrigated with pulsatile lavage. Cement was prepared via vacuum mixing in a bowl on the back table. I then hand pressurized cement into the femur and tibia and placed the implants beginning with the tibial base tray and poly liner, femoral component, and finally the patellar button. All extruded cement was removed including from the pin sites. Once the cement had hardened the knee was evaluated one final time with the final polyethylene liner in place. The knee had full extension and flexion and felt stable to varus and valgus stress throughout the arc of motion. The tourniquet was released and with the tourniquet down the patella tracked midline. All bleeders were controlled with electrocautery. The knee was then soaked for 3 minutes with a dilute Betadine soak. The knee was thoroughly irrigated using 3 L of sterile saline and pulsatile lavage. 2 g of vancomycin powder was placed deep within the wound given the patient's BMI 47. The extensor mechanism was then reap proximated using pop off Vicryl sutures followed by a running barbed suture. The knee was then closed in layers with a 0 strata fix for the deep fascial layer, 2-0 strata fix for the superficial subcutaneous layer and Monocryl and the skin closure was reinforced with 3-0 nylon vertical mattress sutures given the patient's BMI 47. A sterile dressing and drain sponge were applied. I verified that all instrument, sponge, and sharp counts were correct. The patient was then transferred off the operating room table, extubated, and brought to recovery having tolerated the procedure well. Aline Avendaño PA-C was required as a skilled assistant manager retail due to the complexity of the procedure for patient positioning, draping, retraction, placement of hardware, and closure of wound. PLAN: The patient can weight-bear as tolerated on the operative extremity. DVT prophylaxis with aspirin 81 mg twice a day based on preoperative risk stratification. Follow-up in the office in 2 weeks for wound check and x-rays of the knee including an AP and lateral.
[2022-07-23] MEDS ORDERED: hydrOXYzine pamoate 25 MG CAP PO PRN (17:01)
[2022-07-23] MEDS ORDERED: ONDANSETRON 4 MG/2 ML VIAL IVP PRN (17:01)
[2022-07-23] MEDS ORDERED: HYDROmorphone 0.5 MG/0.5 ML SYRINGE IVP PRN ×3 (17:01)
[2022-07-23] MEDS ORDERED: HYDROcodone/APAP 5-325MG 1 EACH TAB PO PRN ×2 (17:01)
[2022-07-23] MEDS ORDERED: NALOXONE 0.4 MG/ML 1 ML VIAL IV PRN (17:01)
[2022-07-23 17:21] LABS: Glucose,Whole Blood 175 mg/dL (70-110)
[2022-07-23] MEDS ORDERED: DEXTROSE 50% SYRINGE 50 ML IVP PRN ×2 (17:44)
--- NOTE | 2022-07-23 18:56 | XR ---
EXAMINATION TYPE: XR knee limited RT DATE OF EXAM: 07/23/2022 5:18 PM INDICATION: Patient age:Female; 72 years old; Reason for study: post total right knee arthroplasty; COMPARISON: None. TECHNIQUE: The Right knee(s) was examined in 3 projections. Frontal, lateral and oblique. FINDINGS: Post right knee arthroplasty changes with subcutaneous lucency consistent with gas/postsurgical crespo es. Hardware appears intact and appropriate alignment. No evidence of fracture. IMPRESSION: Post right knee arthroplasty changes with hardware in place and intact.
[2022-07-23] MEDS: ASPIRIN 81 MG PO SCH (20:00)
[2022-07-23 20:41] LABS: Glucose,Whole Blood 267 mg/dL (70-110)
[2022-07-23] MEDS ORDERED: SENNOSIDES-DOCUSATE SODIUM 1 EACH TAB PO SCH (21:00)
[2022-07-23] MEDS: INSULIN ASPART (NovoLOG) 100 UNIT/ML VIAL SQ SCH (21:08)
[2022-07-23] MEDS: OLANZapine 5 MG TAB PO SCH (23:37)
[2022-07-23] MEDS: clonazePAM 0.5 MG TAB PO SCH (23:37)
--- NOTE | 2022-07-24 06:37 | P.PN ---
Progress Note - Text Progress Note Date: 07/24/22 The patient was seen at bedside this morning. She had a knee replacement done on the right side yesterday. Overall she is doing well. On inspection of the right leg the dressing is almost completely saturated with blood. Dressing was taken off and the wound was inspected. Incision appears intact with no active bleeding. Sutures are in place. There is mild swelling but otherwise no erythema or drainage. Due to the patient's weight, adipose tissue over the anterior aspect of the knee, early bleeding from the incision and history of diabetes elected to place an incisional wound VAC to lower her risk of complication with her wound. A 20 cm Prevena incisional wound VAC was applied over her incision with good seal. The patient tolerated this well.
--- NOTE | 2022-07-24 06:39 | P.DS ---
Providers Date of admission: 07/23/2022 Expected date of discharge: 07/24/22 Attending physician: Neeraj Stack Consults: 07/23/22 17:01 Consult Physician Routine Consulting Provider: Nickolas Crespo Consult Reason/Comments: medical management Do you want consulting provider notified?: Yes Primary care physician: [facility] Course: The patient is very pleasant 72-year-old female who was admitted yesterday and underwent an uncomplicated right total knee arthroplasty. Her postoperative x- rays looked good. She was seen postoperative day #1 and there was some drainage and bleeding through her dressing. This was taken down and an incisional wound VAC was placed. The patient is otherwise without complaints. Internal medicine and physical therapy been consulted. We'll see how she does and if she passes physical therapy and is cleared by internal medicine she can discharge home today on postoperative day #1. Plan - Discharge Summary Discharge Rx Participant: Yes New Discharge Prescriptions: New Docusate [Colace] 100 mg PO BID #60 capsule Doxycycline Monohydrate 100 mg PO BID 14 Days #28 cap HYDROcodone/APAP 5-325MG [[place] 5-325] 1 - 2 tab PO Q6HR PRN 7 Days #30 tab PRN Reason: Pain Omeprazole 40 mg PO DAILY 30 Days #30 cap Aspirin 81 mg PO BID 30 Days #60 tab No Action FLUoxetine HCL [PROzac] 40 mg PO DAILY clonazePAM [KlonoPIN] 0.5 mg PO TID OLANZapine [ZyPREXA] 5 mg PO BID Fenofibrate Nanocrystallized [Tricor] 145 mg PO DAILY allopurinoL [Zyloprim] 100 mg PO DAILY Metoprolol Succinate (ER) [Toprol Xl] 25 mg PO DAILY Pioglitazone [Actos] 15 mg PO DAILY Insulin Glargine [Lantus Vial] 56 unit SQ HS Atorvastatin [Lipitor] 10 mg PO DAILY Acetaminophen [Tylenol Extra Strength] 1,000 mg PO DIRECTED PRN PRN Reason: Pain Furosemide [Lasix] 40 mg PO DAILY Multivit with Calcium,Iron,Min [Women's Multivitamin] 1 each PO DAILY Discharge Medication List FLUoxetine HCL [PROzac] 40 mg PO DAILY 05/03/14 [History] Fenofibrate Nanocrystallized [Tricor] 145 mg PO DAILY 05/03/14 [History] OLANZapine [ZyPREXA] 5 mg PO BID 05/03/14 [History] clonazePAM [KlonoPIN] 0.5 mg PO TID 05/03/14 [History] allopurinoL [Zyloprim] 100 mg PO DAILY 10/13/20 [History] Metoprolol Succinate (ER) [Toprol Xl] 25 mg PO DAILY 12/10/20 [History] Acetaminophen [Tylenol Extra Strength] 1,000 mg PO DIRECTED PRN 06/11/22 [History] Atorvastatin [Lipitor] 10 mg PO DAILY 06/11/22 [History] Furosemide [Lasix] 40 mg PO DAILY 06/11/22 [History] Insulin Glargine [Lantus Vial] 56 unit SQ HS 06/11/22 [History] Multivit with Calcium,Iron,Min [Women's Multivitamin] 1 each PO DAILY 06/11/22 [History] Pioglitazone [Actos] 15 mg PO DAILY 06/11/22 [History] Aspirin 81 mg PO BID 30 Days #60 tab 07/23/22 [Rx] Docusate [Colace] 100 mg PO BID #60 capsule 07/23/22 [Rx] Doxycycline Monohydrate 100 mg PO BID 14 Days #28 cap 07/23/22 [Rx] HYDROcodone/APAP 5-325MG [[place] 5-325] 1 - 2 tab PO Q6HR PRN 7 Days #30 tab 07/23/22 [Rx] Omeprazole 40 mg PO DAILY 30 Days #30 cap 07/23/22 [Rx] Follow up Appointment(s)/Referral(s): Neeraj Stack MD [Medical Doctor] - 1 Week Activity/Diet/Wound Care/Special Instructions: Weight bear to tolerance on operative extremity with a walker. Keep operative dressing intact until follow-up appointment in the office. Call the office if dressing becomes saturated or falls off. May shower over dressing. Take pain medication as prescribed. Take aspirin 81mg BID x 4 weeks for blood clot prevention. Take doxycycline as prescribed for wound healing prophylaxis. Follow-up in the office with Dr. Stack in two weeks. Call the office with any questions or concerns, Discharge Disposition: HOME WITH HOME HEALTH SERVICES
[2022-07-24 07:20] VITALS: BP 174/68; PULSE 83; RESP 17; TEMP 98.4
[2022-07-24] MEDS ORDERED: PANTOPRAZOLE 40 MG TABLET PO SCH (07:30)
[2022-07-24 07:33] LABS: Glucose,Whole Blood 188 mg/dL (70-110)
[2022-07-24] MEDS: INSULIN ASPART (NovoLOG) 100 UNIT/ML VIAL SQ SCH ×2 (07:52→11:54)
[2022-07-24] MEDS: ASPIRIN 81 MG PO SCH (07:53)
[2022-07-24] MEDS: clonazePAM 0.5 MG TAB PO SCH (07:53)
[2022-07-24] MEDS: FUROSEMIDE 40 MG TAB PO SCH ×2 (07:54→07:59)
[2022-07-24] MEDS: OLANZapine 5 MG TAB PO SCH (07:54)
[2022-07-24 08:57] LABS: Basophils # (A) 0.03 X 10*3/uL (0.00-0.10); Basophils % (A) 0.2 %; Eosinophils # (A) 0 X 10*3/uL (0.04-0.35); Eosinophils % (A) 0 %; HCT 35.8 % (37.2-46.3); HGB 11.5 g/dL (12.0-15.0); Immature Grans, Automated 0.6 %; Lymphocytes # (A) 1.36 X 10*3/uL (0.90-5.00); MCH 29.6 pg (27.0-32.0); MCHC 32.1 g/dL (32.0-37.0); MCV 92.3 fL (80.0-97.0); Mean Platelet Volume 9.7 fL (9.5-12.2); Monocytes # (A) 1.11 X 10*3/uL (0.20-1.00); Monocytes % (A) 6.5 %; NRBC Per 100 WBC 0 /100 WBCS (0.0-0.0); Neutrophils # (A) 14.47 X 10*3/uL (1.80-7.70); Neutrophils % (A) 84.7 %; Platelet Count 381 X 10*3/uL (140-440); RBC 3.88 X 10*6/uL (4.10-5.20); RDW 13.7 % (11.5-14.5); WBC 17.07 X 10*3/uL (4.50-10.00)
[2022-07-24] MEDS ORDERED: PIOGLITAZONE 15 MG TAB PO SCH (09:00)
[2022-07-24] MEDS ORDERED: ATORVASTATIN 10 MG TAB PO SCH (09:00)
[2022-07-24] MEDS ORDERED: METOPROLOL SUCCINATE (ER) 25 MG TAB.ER.24H PO SCH (09:00)
[2022-07-24] MEDS ORDERED: MULTIVITAMINS, THERA 1 EACH TAB PO SCH (09:00)
[2022-07-24] MEDS ORDERED: allopurinoL 100 MG TAB PO SCH (09:00)
[2022-07-24] MEDS ORDERED: FLUoxetine HCL 20 MG CAP PO SCH (09:00)
[2022-07-24 11:26] LABS: Glucose,Whole Blood 205 mg/dL (70-110)
[2022-07-24] MEDS ORDERED: INSULIN DETEMIR (LEVEMIR) 100 UNIT/ML SYR SQ SCH (21:00)
== END 2022-07-24 14:25 | disposition home health service (06) ==
LOC: OR 11:42 → 4SSUR 16:40 → OR 07-24 14:25
PROVIDERS: ATTEND Orthopaedic Surgery
DX: M17.11 Unilateral primary osteoarthritis, right knee (principal); M25.761 Osteophyte, right knee; M25.561 Pain in right knee; M25.562 Pain in left knee; E11.9 Type 2 diabetes mellitus without complications; G89.18 Other acute postprocedural pain; F32.9 Major depressive disorder, single episode, unspecified; E78.5 Hyperlipidemia, unspecified; I10 Essential (primary) hypertension; F41.9 Anxiety disorder, unspecified; K52.0 Gastroenteritis and colitis due to radiation; H53.8 Other visual disturbances; M25.462 Effusion, left knee; T84.84XD Pain due to internal orthopedic prosthetic devices, implants and grafts, subsequent encounter; Z90.10 Acquired absence of unspecified breast and nipple; Z96.652 Presence of left artificial knee joint; Z86.69 Personal history of other diseases of the nervous system and sense organs
CPT/HCPCS: 27447; 64999; 20985; 97116; 97161; 64447; 64445; 76942; 85025; 73560; C1776 ×2; J2250; J3370; J1200; J1100; J0690; J2405; J3010; J2795; J1885; J2704; J1170

== ENCOUNTER 2022-07-30 15:07 | Emergency (ER) | payer MEDICARE, OTHER ==
[2022-07-30 15:45] VITALS: PULSE 88; RESP 16; TEMP 98.4
--- NOTE | 2022-07-30 17:06 | ED ---
General Adult HPI - General Chief complaint: Weakness Stated complaint: high blood pressure Time Seen by Provider: 07/30/22 16:45 Source: patient, family, RN notes reviewed, old records reviewed Mode of arrival: wheelchair Limitations: no limitations - History of Present Illness Initial comments: This is a well-appearing 72-year-old female who presents to the emergency room sent by her physical therapist because her blood pressure was elevated today at 200/104. Patient arrived to the emergency room blood pressure is 158/76. She denies any chest pain or difficulty in breathing. She does have a history of hypertension. She was at physical therapy after having a total knee with Dr. Stack last week. She is having no pain or discomfort at this time. She does take Toprol daily for her blood pressure. She states she has been having generalized fatigue but that has been ongoing. -: days(s) (1) Severity scale (1-10): 0 Associated Symptoms: weakness Treatments Prior to Arrival: none - Related Data Home Medications Medication Instructions Recorded Confirmed FLUoxetine HCL [PROzac] 40 mg PO DAILY 05/03/14 07/23/22 Fenofibrate Nanocrystallized 145 mg PO DAILY 05/03/14 07/23/22 [Tricor] OLANZapine [ZyPREXA] 5 mg PO BID 05/03/14 07/23/22 clonazePAM [KlonoPIN] 0.5 mg PO TID 05/03/14 07/23/22 allopurinoL [Zyloprim] 100 mg PO DAILY 10/13/20 07/23/22 Metoprolol Succinate (ER) [Toprol 25 mg PO DAILY 12/10/20 07/23/22 XL] Acetaminophen [Tylenol Extra 1,000 mg PO DIRECTED PRN 06/11/22 07/23/22 Strength] Atorvastatin [Lipitor] 10 mg PO DAILY 06/11/22 07/23/22 Furosemide [Lasix] 40 mg PO DAILY 06/11/22 07/23/22 Insulin Glargine [Lantus Vial] 56 unit SQ HS 06/11/22 07/23/22 Multivit with Calcium,Iron,Min 1 each PO DAILY 06/11/22 07/23/22 [Women's Multivitamin] Pioglitazone [Actos] 15 mg PO DAILY 06/11/22 07/23/22 Previous Rx's Medication Instructions Recorded Aspirin 81 mg PO BID 30 Days #60 tab 07/23/22 Docusate [Colace] 100 mg PO BID #60 capsule 07/23/22 Doxycycline Monohydrate 100 mg PO BID 14 Days #28 cap 07/23/22 HYDROcodone/APAP 5-325MG [[place] 1 - 2 tab PO Q6HR PRN 7 Days #30 07/23/22 5-325] tab Omeprazole 40 mg PO DAILY 30 Days #30 cap 07/23/22 Allergies Allergy/AdvReac Type Severity Reaction Status Date / Time No Known Allergies Allergy Verified 07/23/22 12:11 Review of Systems ROS Statement: Those systems with pertinent positive or pertinent negative responses have been documented in the HPI. ROS Other: All systems not noted in ROS Statement are negative. 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 right knee replacement 07/23/22 Past Anesthesia/Blood Transfusion Reactions: Motion Sickness Past Psychological History: Anxiety, Depression Smoking Status: Former smoker Past Alcohol Use History: None Reported Past Drug Use History: None Reported - Past Family History Sister(s) Family Medical History: Myocardial Infarction (MO) Additional Family Medical History / Comment(s): TWO SISTERS HAD AN MO Father Family Medical History: Cancer Additional Family Medical History / Comment(s): Father of stomach cancer. Mother Family Medical History: Cancer Additional Family Medical History / Comment(s): . General Exam Limitations: no limitations General appearance: alert, in no apparent distress Head exam: Present: atraumatic Eye exam: Absent: scleral icterus, conjunctival injection Neck exam: Absent: tenderness, meningismus Respiratory exam: Present: normal lung sounds bilaterally. Absent: respiratory distress, wheezes, rales, rhonchi, stridor, chest wall tenderness, accessory muscle use Cardiovascular Exam: Present: regular rate GI/Abdominal exam: Present: soft. Absent: distended, tenderness, guarding, rebound, rigid Extremities exam: Present: normal capillary refill, other (Pedal pulses present bilateral). Absent: tenderness, pedal edema, calf tenderness Back exam: Present: normal inspection, full ROM. Absent: tenderness, CVA tenderness (R), CVA tenderness (L), rash noted Neurological exam: Present: alert, oriented X3 Psychiatric exam: Present: normal affect, normal mood Skin exam: Present: warm, dry, normal color. Absent: cyanosis, diaphoretic, petechiae, pallor Course Vital Signs 07/30/22 07/30/22 07/30/22 15:40 17:11 18:14 Temperature 98.4 F Pulse Rate 88 Respiratory 16 Rate Blood Pressure 158/76 196/89 185/79 O2 Sat by Pulse 95 Oximetry Medical Decision Making - Medical Decision Making Chest x-ray negative for any acute cardiopulmonary process. No evidence of leukocytosis and hemoglobin and hematocrit is stable. BUN and creatinine are within normal limits. Patient's magnesium is 1.3, she was given oral supplementation. Troponin is negative however patient is refusing EKG states that she had one last week prior to the surgery. Denies any chest pain or difficulty breathing. Her low magnesium level in addition to recent surgery may be the cause of her generalized fatigue. She states that she does take Magnesium at home daily. She was instructed to follow-up with Dr. Persaud on Tuesday regarding her low magnesium and elevated blood pressure. Patient and family are agreeable to this plan of care. Case discussed with Dr. Oviedo - Lab Data Result diagrams: 07/30/22 17:00 07/30/22 17:00 Lab Results 07/30/22 07/30/22 07/30/22 Range/Units 17:00 17:00 17:00 WBC 8.3 (3.8-10.6) k/uL RBC 4.11 (3.80-5.40) m/uL Hgb 11.7 (11.4-16.0) gm/dL Hct 38.0 (34.0-46.0) % MCV 92.6 (80.0-100.0) fL MCH 28.4 (25.0-35.0) pg MCHC 30.6 L (31.0-37.0) g/dL RDW 15.0 (11.5-15.5) % Plt Count 509 H (150-450) k/uL MPV 7.3 Neutrophils % 57 % Lymphocytes % 30 % Monocytes % 7 % Eosinophils % 4 % Basophils % 1 % Neutrophils # 4.7 (1.3-7.7) k/uL Lymphocytes # 2.5 (1.0-4.8) k/uL Monocytes # 0.6 (0-1.0) k/uL Eosinophils # 0.3 (0-0.7) k/uL Basophils # 0.1 (0-0.2) k/uL Sodium 139 (137-145) mmol/L Potassium 3.9 (3.5-5.1) mmol/L Chloride 104 (98-107) mmol/L Carbon Dioxide 27 (22-30) mmol/L Anion Gap 8 mmol/L BUN 13 (7-17) mg/dL Creatinine 0.83 (0.52-1.04) mg/dL Est GFR (CKD-EPI)AfAm 81 (>60 ml/min/1.73 sqM) Est GFR (CKD-EPI)NonAf 71 (>60 ml/min/1.73 sqM) Glucose 134 H (74-99) mg/dL Plasma Lactic Acid Syd 0.9 (0.7-2.0) mmol/L Calcium 9.7 (8.4-10.2) mg/dL Magnesium 1.3 L (1.6-2.3) mg/dL Total Bilirubin 0.6 (0.2-1.3) mg/dL AST 20 (14-36) U/L ALT 11 (4-34) U/L Alkaline Phosphatase 80 (38-126) U/L Troponin I (0.000-0.034) ng/mL Total Protein 5.8 L (6.3-8.2) g/dL Albumin 3.6 (3.5-5.0) g/dL 07/30/22 Range/Units 17:00 WBC (3.8-10.6) k/uL RBC (3.80-5.40) m/uL Hgb (11.4-16.0) gm/dL Hct (34.0-46.0) % MCV (80.0-100.0) fL MCH (25.0-35.0) pg MCHC (31.0-37.0) g/dL RDW (11.5-15.5) % Plt Count (150-450) k/uL MPV Neutrophils % % Lymphocytes % % Monocytes % % Eosinophils % % Basophils % % Neutrophils # (1.3-7.7) k/uL Lymphocytes # (1.0-4.8) k/uL Monocytes # (0-1.0) k/uL Eosinophils # (0-0.7) k/uL Basophils # (0-0.2) k/uL Sodium (137-145) mmol/L Potassium (3.5-5.1) mmol/L Chloride (98-107) mmol/L Carbon Dioxide (22-30) mmol/L Anion Gap mmol/L BUN (7-17) mg/dL Creatinine (0.52-1.04) mg/dL Est GFR (CKD-EPI)AfAm (>60 ml/min/1.73 sqM) Est GFR (CKD-EPI)NonAf (>60 ml/min/1.73 sqM) Glucose (74-99) mg/dL Plasma Lactic Acid Syd (0.7-2.0) mmol/L Calcium (8.4-10.2) mg/dL Magnesium (1.6-2.3) mg/dL Total Bilirubin (0.2-1.3) mg/dL AST (14-36) U/L ALT (4-34) U/L Alkaline Phosphatase (38-126) U/L Troponin I 0.015 (0.000-0.034) ng/mL Total Protein (6.3-8.2) g/dL Albumin (3.5-5.0) g/dL Disposition Clinical Impression: Hypertension, Hypomagnesemia Disposition: HOME SELF-CARE Condition: Good Instructions (If sedation given, give patient instructions): Hypertension (ED), Hypomagnesemia (ED) Additional Instructions: Continue taking your blood pressure medicine and your magnesium supplementation. Contact Dr. Persaud on Tuesday morning to discuss your elevated blood pressure and low magnesium levels. Return to the emergency room with any new or concer madina symptoms including chest pain or difficulty breathing. Is patient prescribed a controlled substance at d/c from ED?: No Referrals: Cabrera Persaud DO [Primary Care Provider] - 1-2 days Time of Disposition: 18:04
[2022-07-30 17:17] LABS: Basophils # (A) 0.1 k/uL (0-0.2); Basophils % (A) 1 %; Eosinophils # (A) 0.3 k/uL (0-0.7); Eosinophils % (A) 4 %; HGB 11.7 gm/dL (11.4-16.0); Lymphocytes # (A) 2.5 k/uL (1.0-4.8); Lymphocytes % (A) 30 %; MCH 28.4 pg (25.0-35.0); MCHC 30.6 g/dL (31.0-37.0); MCV 92.6 fL (80.0-100.0); Mean Platelet Volume 7.3; Monocytes # (A) 0.6 k/uL (0-1.0); Monocytes % (A) 7 %; Neutrophils # (A) 4.7 k/uL (1.3-7.7); Neutrophils % (A) 57 %; Platelet Count 509 k/uL (150-450); RBC 4.11 m/uL (3.80-5.40); WBC 8.3 k/uL (3.8-10.6)
[2022-07-30 17:33] LABS: Albumin 3.6 g/dL (3.5-5.0); Calcium 9.7 mg/dL (8.4-10.2); Magnesium 1.3 mg/dL (1.6-2.3); Potassium 3.9 mmol/L (3.5-5.1); Total Bilirubin 0.6 mg/dL (0.2-1.3); Total Protein 5.8 g/dL (6.3-8.2)
--- NOTE | 2022-07-30 17:53 | XR ---
EXAMINATION TYPE: XR chest 2V DATE OF EXAM: 07/30/2022 COMPARISON: 12/18/2020 HISTORY: Weakness TECHNIQUE: FINDINGS: Heart is normal. Lungs are clear of infiltrate. No heart failure. There are no hilar masses . Costophrenic angles are clear. The bony thorax is intact. IMPRESSION: No active cardiopulmonary disease. Normal heart. No adverse change.
[2022-07-30] MEDS ORDERED: MAGNESIUM OXIDE 400 MG TAB PO STA (17:55)
[2022-07-30 18:15] VITALS: BP 185/79
== END 2022-07-30 18:19 | disposition home or self-care (01) ==
LOC: EC 15:07
DX: E83.42 Hypomagnesemia (principal); I10 Essential (primary) hypertension; E11.9 Type 2 diabetes mellitus without complications; M19.90 Unspecified osteoarthritis, unspecified site; F41.9 Anxiety disorder, unspecified; F32.A Depression, unspecified; Z87.891 Personal history of nicotine dependence; Z79.82 Long term (current) use of aspirin; Z79.84 Long term (current) use of oral hypoglycemic drugs; Z79.899 Other long term (current) drug therapy
CPT/HCPCS: 36415; 71046; 80053; 83605; 83735; 84484; 85025; 99285

== ENCOUNTER 2023-03-26 09:31 | Inpatient (IN) | payer MEDICARE, OTHER ==
--- NOTE | 2023-03-26 09:57 | XR ---
EXAMINATION TYPE: XR knee limited RT DATE OF EXAM: 03/26/2023 COMPARISON: 07/23/2022 HISTORY: Fall, pain TECHNIQUE: 2 view right knee FINDINGS: There is a comminuted fracture of the distal metaphyseal femur. This is just proximal to th e patient's right femoral prosthesis at the knee. Joint effusion is likely present. Soft tissue swell ing is over the knee. Tibial component appears intact without fracture. There appears to be angulatio n of the distal metadiaphyseal femoral fracture with posterior displacement on the lateral projection . IMPRESSION: 1. Comminuted fracture distal metaphyseal right femur above the patient's right knee prosthesis. Dis eileen fracture fragment is displaced posteriorly with some slight medial angulation.
[2023-03-26] MEDS ORDERED: NALOXONE 0.4 MG/ML 1 ML VIAL IV PRN (10:15)
[2023-03-26] MEDS ORDERED: ONDANSETRON 4 MG/2 ML VIAL IVP PRN (10:15)
--- NOTE | 2023-03-26 10:17 | ED ---
Fall HPI - General Chief Complaint: Fall Stated Complaint: fall - rt knee injury Time Seen by Provider: 03/26/23 09:33 Source: patient, EMS, RN notes reviewed Mode of arrival: EMS Limitations: physical limitation - History of Present Illness Initial Comments: 72-year-old female presents emergency Department chief complaint of trip and fall. Patient states that she tripped over a cord at a hair salon. Patient states she has right knee pain she had surgery 7-[address] Stack for right total knee replacement. Patient states she has severe pain of the right knee she was given morphine by EMS. Patient denies any head injury. - Related Data Home Medications Medication Instructions Recorded Confirmed FLUoxetine HCL [PROzac] 40 mg PO DAILY 05/03/14 07/23/22 Fenofibrate Nanocrystallized 145 mg PO DAILY 05/03/14 07/23/22 [Tricor] OLANZapine [ZyPREXA] 5 mg PO BID 05/03/14 07/23/22 clonazePAM [KlonoPIN] 0.5 mg PO TID 05/03/14 07/23/22 allopurinoL [Zyloprim] 100 mg PO DAILY 10/13/20 07/23/22 Metoprolol Succinate (ER) [Toprol 25 mg PO DAILY 12/10/20 07/23/22 XL] Acetaminophen [Tylenol Extra 1,000 mg PO DIRECTED PRN 06/11/22 07/23/22 Strength] Atorvastatin [Lipitor] 10 mg PO DAILY 06/11/22 07/23/22 Furosemide [Lasix] 40 mg PO DAILY 06/11/22 07/23/22 Insulin Glargine [Lantus Vial] 56 unit SQ HS 06/11/22 07/23/22 Multivit with Calcium,Iron,Min 1 each PO DAILY 06/11/22 07/23/22 [Women's Multivitamin] Pioglitazone [Actos] 15 mg PO DAILY 06/11/22 07/23/22 Previous Rx's Medication Instructions Recorded Aspirin 81 mg PO BID 30 Days #60 tab 07/23/22 Docusate [Colace] 100 mg PO BID #60 capsule 07/23/22 Doxycycline Monohydrate 100 mg PO BID 14 Days #28 cap 07/23/22 HYDROcodone/APAP 5-325MG [[place] 1 - 2 tab PO Q6HR PRN 7 Days #30 07/23/22 5-325] tab Omeprazole 40 mg PO DAILY 30 Days #30 cap 07/23/22 Allergies Allergy/AdvReac Type Severity Reaction Status Date / Time No Known Allergies Allergy Verified 07/23/22 12:11 Review of Systems ROS Statement: Those systems with pertinent positive or pertinent negative responses have been documented in the HPI. ROS Other: All systems not noted in ROS Statement are negative. 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 right knee replacement 07/23/22 Past Anesthesia/Blood Transfusion Reactions: Motion Sickness Past Psychological History: Anxiety, Depression Smoking Status: Former smoker Past Alcohol Use History: None Reported Past Drug Use History: None Reported - Past Family History Sister(s) Family Medical History: Myocardial Infarction ([place]) Additional Family Medical History / Comment(s): TWO SISTERS HAD AN [place] Father Family Medical History: Cancer Additional Family Medical History / Comment(s): Father of stomach cancer. Mother Family Medical History: Cancer Additional Family Medical History / Comment(s): . General Exam Limitations: no limitations General appearance: alert, in no apparent distress Head exam: Present: atraumatic, normocephalic, normal inspection Eye exam: Present: normal appearance, PERRL, EOMI. Absent: scleral icterus, conjunctival injection, periorbital swelling Respiratory exam: Present: normal lung sounds bilaterally. Absent: respiratory distress, wheezes, rales, rhonchi, stridor Cardiovascular Exam: Present: regular rate, normal rhythm, normal heart sounds. Absent: systolic murmur, diastolic murmur, rubs, gallop, clicks Extremities exam: Present: other (Right knee there is swelling, old surgical scar noted, neurovascular intact there is some ecchymosis noted) Course Vital Signs 03/26/23 09:34 Temperature 97.8 F Pulse Rate 68 Respiratory 18 Rate Blood Pressure 154/82 O2 Sat by Pulse 94 L Oximetry Medical Decision Making - Medical Decision Making Was pt. sent in by a medical professional or institution (NATHAN Santana, MANUFACTURING COST ESTIMATOR, urgent care, hospital, or fci...) When possible be specific @ -No Did you speak to anyone other than the patient for history (EMS, parent, family, police, friend...)? What history was obtained from this source @ -EMS and providing past medical history Did you review nursing and triage notes (agree or disagree)? Why? @ -I reviewed and agree with nursing and triage notes Were old charts reviewed (outside hosp., previous admission, EMS record, old EKG, old radiological studies, urgent care reports/EKG's, fci records)? Report findings @ -No old charts were reviewed Differential Diagnosis (chest pain, altered mental status, abdominal pain women, abdominal pain men, vaginal bleeding, weakness, fever, dyspnea, syncope, headache, dizziness, GI bleed, back pain, seizure, CVA, palpatations, mental health, musculoskeletal)? @ -Right femur fracture, hardware displacement right knee contusion, right knee sprain] EKG interpreted by me (3pts min.). @ -As above X-rays interpreted by me (1pt min.). @ -Right knee x-ray shows distal femur fracture just above the hardware with displacement CT interpreted by me (1pt min.). @ -None done U/S interpreted by me (1pt. min.). @ -None done What testing was considered but not performed or refused? (CT, X-rays, U/S, l abs)? Why? @ -None What meds were considered but not given or refused? Why? @ -None Did you discuss the management of the patient with other professionals (professionals i.e. NATHAN Santana, MANUFACTURING COST ESTIMATOR, lab, RT, psych nurse, geriatric social worker, air hole driller, teacher, immigration officer, nurse outreach case manager)? Give summary @ -Discussed the case with Dr. Amaral covering for Dr. Stack orthopedics recommends patient be admitted with surgical clearance Was smoking cessation discussed for >3mins.? @ -No Was critical care preformed (if so, how long)? @ -No Were there social determinants of health that impacted care today? How? (Homelessness, low income, unemployed, alcoholism, drug addiction, transportation, low edu. Level, literacy, decrease access to med. care, detention, rehab)? @ -No Was there de-escalation of care discussed even if they declined (Discuss DNR or withdrawal of care, Hospice)? DNR status @ -No What co-morbidities impacted this encounter? (DM, HTN, Smoking, COPD, CAD, Cancer, CVA, ARF, Chemo, Hep., AIDS, mental health diagnosis, sleep apnea, morbi d obesity)? @ -None Was patient admitted / discharged? Hospital course, mention meds given and route, prescriptions, significant lab abnormalities, going to OR and other pertinent info. @ -Admitted for distal right femur fracture patient admitted to orthopedics with medicine consult. pain Control was provided. Undiagnosed new problem with uncertain prognosis? @ -No Drug Therapy requiring intensive monitoring for toxicity (Heparin, Nitro, Insulin, Cardizem)? @ -No Were any procedures done? @ -No Diagnosis/symptom? @ -Distal right femur fracture Acute, or Chronic, or Acute on Chronic? @ -Acute Uncomplicated (without systemic symptoms) or Complicated (systemic symptoms)? @ -Uncomplicated Side effects of treatment? @ -No Exacerbation, Progression, or Severe Exacerbation? @ -No Poses a threat to life or bodily function? How? (Chest pain, [place], [place], pneumonia, PE, COPD, DKA, ARF, appy, cholecystitis, CVA, Diverticulitis, Homicidal, Suicidal, threat to staff... and all critical care pts) @ -No - Lab Data Result diagrams: 03/26/23 10:18 03/26/23 10:18 Lab Results 03/26/23 03/26/23 03/26/23 Range/Units 10:18 10:18 10:18 WBC 12.2 H (3.8-10.6) k/uL RBC 4.00 (3.80-5.40) m/uL Hgb 11.5 (11.4-16.0) gm/dL Hct 35.2 (34.0-46.0) % MCV 88.1 (80.0-100.0) fL MCH 28.8 (25.0-35.0) pg MCHC 32.7 (31.0-37.0) g/dL RDW 14.1 (11.5-15.5) % Plt Count 510 H (150-450) k/uL MPV 8.1 Neutrophils % 76 % Lymphocytes % 16 % Monocytes % 7 % Eosinophils % 0 % Basophils % 0 % Neutrophils # 9.3 H (1.3-7.7) k/uL Lymphocytes # 2.0 (1.0-4.8) k/uL Monocytes # 0.8 (0-1.0) k/uL Eosinophils # 0.1 (0-0.7) k/uL Basophils # 0.0 (0-0.2) k/uL PT 10.2 (9.0-12.0) sec INR 1.0 (<1.2) APTT 24.9 (22.0-30.0) sec Sodium 140 (137-145) mmol/L Potassium 4.0 (3.5-5.1) mmol/L Chloride 102 (98-107) mmol/L Carbon Dioxide 30 (22-30) mmol/L Anion Gap 8 mmol/L BUN 34 H (7-17) mg/dL Creatinine 1.29 H (0.52-1.04) mg/dL Est GFR (CKD-EPI)AfAm 48 (>60 ml/min/1.73 sqM) Est GFR (CKD-EPI)NonAf 41 (>60 ml/min/1.73 sqM) Glucose 136 H (74-99) mg/dL Calcium 9.5 (8.4-10.2) mg/dL Total Bilirubin 0.3 (0.2-1.3) mg/dL AST 24 (14-36) U/L ALT 13 (4-34) U/L Alkaline Phosphatase 56 (38-126) U/L Total Protein 6.5 (6.3-8.2) g/dL Albumin 3.9 (3.5-5.0) g/dL Blood Type Blood Type Confirm Blood Type Recheck Bld Type Recheck Status Antibody Screen Spec Expiration Date 03/26/23 03/26/23 Range/Units 10:20 10:24 WBC (3.8-10.6) k/uL RBC (3.80-5.40) m/uL Hgb (11.4-16.0) gm/dL Hct (34.0-46.0) % MCV (80.0-100.0) fL MCH (25.0-35.0) pg MCHC (31.0-37.0) g/dL RDW (11.5-15.5) % Plt Count (150-450) k/uL MPV Neutrophils % % Lymphocytes % % Monocytes % % Eosinophils % % Basophils % % Neutrophils # (1.3-7.7) k/uL Lymphocytes # (1.0-4.8) k/uL Monocytes # (0-1.0) k/uL Eosinophils # (0-0.7) k/uL Basophils # (0-0.2) k/uL PT (9.0-12.0) sec INR (<1.2) APTT (22.0-30.0) sec Sodium (137-145) mmol/L Potassium (3.5-5.1) mmol/L Chloride (98-107) mmol/L Carbon Dioxide (22-30) mmol/L Anion Gap mmol/L BUN (7-17) mg/dL Creatinine (0.52-1.04) mg/dL Est GFR (CKD-EPI)AfAm (>60 ml/min/1.73 sqM) Est GFR (CKD-EPI)NonAf (>60 ml/min/1.73 sqM) Glucose (74-99) mg/dL Calcium (8.4-10.2) mg/dL Total Bilirubin (0.2-1.3) mg/dL AST (14-36) U/L ALT (4-34) U/L Alkaline Phosphatase (38-126) U/L Total Protein (6.3-8.2) g/dL Albumin (3.5-5.0) g/dL Blood Type O Positive Blood Type Confirm O Positive Blood Type Recheck No Previous Record Bld Type Recheck Status CABO Indicated Antibody Screen NEGATIVE Spec Expiration Date 03/29/20232319 - EKG Data -: EKG Interpreted by Me EKG Comments: EKG performed at 10:41 normal sinus rhythm rate of 64 SC 162 QRS 116 QT/QTC 416/425 Disposition Clinical Impression: Fall, Fracture of distal end of right femur Disposition: ADMITTED IP TO THIS [facility] Condition: Fair Referrals: Cabrera Persaud DO [Primary Care Provider] - 1-2 days Time of Disposition: 10:02
[2023-03-26 10:40] LABS: Partial Thromboplastin Time 24.9 sec (22.0-30.0); Prothrombin Time 10.2 sec (9.0-12.0)
[2023-03-26 10:51] LABS: Albumin 3.9 g/dL (3.5-5.0); Calcium 9.5 mg/dL (8.4-10.2); Total Bilirubin 0.3 mg/dL (0.2-1.3); Total Protein 6.5 g/dL (6.3-8.2)
--- NOTE | 2023-03-26 10:51 | XR ---
EXAMINATION TYPE: XR chest 1V DATE OF EXAM: 03/26/2023 COMPARISON: 07/30/2022 INDICATION: Presurgical evaluation TECHNIQUE: Single frontal view of the chest is obtained. FINDINGS: The heart size is normal. The pulmonary vasculature is normal. No suspicious infiltrates are identified. There is some limitation due to patient body habitus. IMPRESSION: 1. No acute pulmonary process.
[2023-03-26 11:19] LABS: Basophils % (A) 0 %; Eosinophils # (A) 0.1 k/uL (0-0.7); Eosinophils % (A) 0 %; HCT 35.2 % (34.0-46.0); HGB 11.5 gm/dL (11.4-16.0); Lymphocytes % (A) 16 %; MCH 28.8 pg (25.0-35.0); MCHC 32.7 g/dL (31.0-37.0); MCV 88.1 fL (80.0-100.0); Mean Platelet Volume 8.1; Monocytes # (A) 0.8 k/uL (0-1.0); Monocytes % (A) 7 %; Neutrophils # (A) 9.3 k/uL (1.3-7.7); Neutrophils % (A) 76 %; Platelet Count 510 k/uL (150-450); RDW 14.1 % (11.5-15.5); WBC 12.2 k/uL (3.8-10.6)
--- NOTE | 2023-03-26 11:38 | CT ---
EXAMINATION TYPE: CT femur RT wo con DATE OF EXAM: 03/26/2023 COMPARISON: None HISTORY: Fall. Right knee pain. CT DLP: 1886.1 mGycm Automated exposure control for dose reduction was used. Contrast: None Technique: Axial images 3 mm thick sections. Reconstructed images in the coronal and sagittal planes. FINDINGS: Femoral head articulates with the acetabulum. Mild joint space narrowing is present. Femoral neck and intertrochanteric region are intact. Portion of the pelvis within the field of view is unremarkable. Femoral diaphysis appears intact. No erosion or fractures evident within the proximal to midportion r ight femur. There is a comminuted fracture of the distal metadiaphyseal femur. There is some external rotation of the distal fracture fragment. There is posterior displacement of the distal fracture fragment. Proximal tibia and fibula appear intact. There is tibial plateau prosthesis. IMPRESSION: 1. COMMINUTED FRACTURE DISTAL METADIAPHYSEAL FEMUR ADJACENT TO A KNEE PROSTHESIS. THERE IS DISPLACEME NT OF THE DISTAL FRACTURE FRAGMENT FROM THE PROXIMAL FRACTURE.
[2023-03-26] MEDS ORDERED: DEXTROSE 50% SYRINGE 50 ML IVP PRN ×2 (12:38)
[2023-03-26] MEDS: INSULIN ASPART (NovoLOG) 100 UNIT/ML VIAL SQ SCH ×2 (13:20→18:28)
[2023-03-26 13:30] LABS: Glucose,Whole Blood 134 mg/dL (70-110)
[2023-03-26] MEDS: MORPHINE SULFATE 4 MG/ML SYRINGE IV PRN ×2 (17:44→23:17)
[2023-03-26] MEDS: BALSALAZIDE DISODIUM 750 MG CAPSULE PO SCH ×2 (17:48→21:01)
[2023-03-26] MEDS: clonazePAM 0.5 MG TAB PO SCH ×2 (17:49→21:01)
[2023-03-26 17:57] LABS: Glucose,Whole Blood 157 mg/dL (70-110)
[2023-03-26] MEDS ORDERED: MELATONIN 3 MG TABLET PO PRN (19:09)
--- NOTE | 2023-03-26 19:14 | P.CONS ---
History of Present Illness - Reason for Consult Consult date: 03/26/23 Medical management Requesting physician: Dewayne Amaral - Chief Complaint Right leg injury - History of Present Illness History of presenting complaint: very pleasant 72-year-old patient of Dr. Persaud. Chronic stable medical conditions include diabetes, hyperlipidemia, hypertension, primary osteoarthritis, peripheral neuropathy, bilateral breast cancer with bilateral mastectomy, IBS, diverticulosis, chronic low back arthritis. Anxiety depression. Diagnosis of ulcerative colitis for about 15 years. On Asacol 800 mg 3 times a day. In November 2020 did undergo coloscopy by Dr. Moreno. Normal- appearing colon. Patient does follow with Dr. Angi Stallings. On an average has about 10 bowel movements a day. Present for years. Patient today [facility]. Troponin went and fell down. Computed tomography scan showing a comminuted fracture distal metaphyseal femur adjacent to the knee processes. Some external rotation. Right lower extremity - brace. Patient's able to get about the house.. No chest pain or palpitation. Review of systems: GEN.: Tired EYES: None HEENT: None NECK: None RESPIRATORY: None CARDIOVASCULAR: None GASTROINTESTINAL: As above GENITOURINARY: None MUSCULOSKELETAL: Joint pains LYMPHATICS: None HEMATOLOGICAL: None PSYCHIATRY: None NEUROLOGICAL: None Past medical history to include: Diabetes mellitus type 2, hyperlipidemia, hypertension, osteoarthritis, peripheral neuropathy, bilateral breast cancer with bilateral mastectomies, ulcerative colitis-colonoscopy has shown normal colon and biopsy was negative., diverticulosis, chronic low back pain and arthritis, anxiety depression. COVID- 19 Social history: . Smoked for 41 years stopped in 2005. No alcohol Physical examination: VITAL SIGNS: 97.8, 68, 18, 154/82, 94% room air GENERAL: BMI 46.6, reclining bed awake EYES: Pupils equal. Conjunctiva normal. HEENT: External appearance of nose and ears normal, oral cavity grossly normal. NECK: JVD not raised; masses not palpable. HEART: First and second heart sounds are normal; no edema. LUNGS: Respiratory rate increased, decreased breath sounds ABDOMEN: Soft, nontender, liver spleen not palpable, no masses palpable. PSYCH: Alert and oriented x3; mood and affect anxiousl. MUSCULAR skeletal: Evidence of OA especially in the hands . Right lower extremity in a brace NEUROLOGICAL: Cranial nerves grossly intact; no facial asymmetry, power and sensation grossly intact. LYMPHATICS: No lymph nodes palpable in the axilla and neck INVESTIGATIONS, reviewed in the clinical context: White count 12.2 hemoglobin 11.5 platelets 510 sodium 140 potassium 4 BUN 34 creatinine 1.9 EKG tracing personally reviewed by me-normal sinus rhythm. Chest x-ray film personally reviewed by me-: Portable. No obvious infiltrate Knee x-ray/femur CT: Comminuted fracture distal metadiaphyseal femur adjacent to a knee processes. Displacement of the distal fracture fragment from the proximal fracture Assessment and plan: -Fall leading to acute Comminuted fracture distal metadiaphyseal femur adjacent to a knee processes. Displacement of the distal fracture fragment from the proximal fracture. Right leg in a immobilizer/place. Spoke to Dr. Stack from orthopedics. Patient been boarded for surgery for Tuesday. 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 And Amaryl. Lantus 45 units subcu daily at bedtime. Sliding scale with coverage. -Hyperlipidemia Lipitor, TriCor -Anxiety not otherwise specified Klonopin 0.5 mg 3 times a day -Depression Zyprexa 5 mg daily at bedtime, Prozac 40 mg a day -Hyperuricemia Allopurinol -Essential hypertension Toprol-XL 25 mg a day -Primary osteoarthritis Pain medications when necessary -Chronic kidney disease stage III from diabetic nephropathy and hypertensive nephrosclerosis Follow renal function Care was discussed with Dr. Stack. and daughter the bedside. Patient is medically stable to proceed with surgery. She is a moderate risk from a cardiovascular standpoint. Has limited exercise tolerance. No cortical indications to proceed with surgery. Questions answered. Thank you Dr. Stack Past Medical History Past Medical History: Diabetes Mellitus, Hypertension, Osteoarthritis (OA), Pneumonia, Sleep Apnea/CPAP/BIPAP Additional Past Medical History / Comment(s): covid 10/14/20-10/21/20, hypercalcemia, bilateral mastectomy but told after it was not cancer, colitis, varicose veins, "irregular urination" History of Any Multi-Drug Resistant Organisms: None Reported Past Surgical History: Breast Surgery, Hysterectomy, Joint Replacement, Tonsillectomy Additional Past Surgical History / Comment(s): Bilateral mastectomies, total L and R knee arthroplasty, colonoscopies, bilateral cataract removals/lens implants. right knee replacement 07/23/22 Past Anesthesia/Blood Transfusion Reactions: Motion Sickness Past Psychological History: Anxiety, Depression Smoking Status: Former smoker Past Alcohol Use History: None Reported Past Drug Use History: None Reported - Past Family History Sister(s) Family Medical History: Myocardial Infarction ([place]) Additional Family Medical History / Comment(s): TWO SISTERS HAD AN [place] Father Family Medical History: Cancer Additional Family Medical History / Comment(s): Father of stomach cancer. Mother Family Medical History: Cancer Additional Family Medical History / Comment(s): . Medications and Allergies Home Medications Medication Instructions Recorded Confirmed Type FLUoxetine HCL [PROzac] 40 mg PO DAILY 05/03/14 03/26/23 History Fenofibrate Nanocrystallized 145 mg PO DAILY 05/03/14 03/26/23 History [Tricor] OLANZapine [ZyPREXA] 5 mg PO HS 05/03/14 03/26/23 History clonazePAM [KlonoPIN] 0.5 mg PO TID 05/03/14 03/26/23 History allopurinoL [Zyloprim] 100 mg PO DAILY 10/13/20 03/26/23 History Metoprolol Succinate (ER) [Toprol 25 mg PO DAILY 12/10/20 03/26/23 History XL] Atorvastatin [Lipitor] 10 mg PO DAILY 06/11/22 03/26/23 History Multivit with Calcium,Iron,Min 1 tab PO DAILY 06/11/22 03/26/23 History [Women's Multivitamin] Pioglitazone [Actos] 15 mg PO DAILY 06/11/22 03/26/23 History Cinacalcet [Sensipar] 30 mg PO MOTH 03/26/23 03/26/23 History Ferrous Sulfate [Feosol] 325 mg PO DAILY 03/26/23 03/26/23 History Glimepiride [Amaryl] 2 mg PO DAILY 03/26/23 03/26/23 History Insulin Glargine,Hum.rec.anlog 56 units SQ HS 03/26/23 03/26/23 History [Lantus Solostar Pen] Magnesium Oxide [Mag-Ox] 400 mg PO DAILY 03/26/23 03/26/23 History Mesalamine [Mesalamine Dr] 800 mg PO TID 03/26/23 03/26/23 History Allergies Allergy/AdvReac Type Severity Reaction Status Date / Time No Known Allergies Allergy Verified 03/26/23 12:09 Physical Exam Vitals: Vital Signs Temp Pulse Resp BP Pulse Ox 03/26/23 09:34 97.8 F 68 18 154/82 94 L Intake and Output 03/25/23 03/26/23 03/26/23 22:59 06:59 14:59 Other: Weight 115.666 kg Results CBC & Chem 7: 03/26/23 10:18 03/26/23 10:18 Labs: Abnormal Lab Results - Last 24 Hours (Table) 03/26/23 03/26/23 Range/Units 10:18 10:18 WBC 12.2 H (3.8-10.6) k/uL Plt Count 510 H (150-450) k/uL Neutrophils # 9.3 H (1.3-7.7) k/uL BUN 34 H (7-17) mg/dL Creatinine 1.29 H (0.52-1.04) mg/dL Glucose 136 H (74-99) mg/dL
[2023-03-26] MEDS: ENOXAPARIN 40 MG/0.4 ML SYRINGE SQ SCH (20:25)
[2023-03-26] MEDS ORDERED: INSULIN DETEMIR (LEVEMIR) 100 UNIT/ML SYR SQ SCH (21:00)
[2023-03-26] MEDS: PSYLLIUM HUSK 100% 6 GM PACKET PO SCH (21:01)
[2023-03-26] MEDS: OLANZapine 5 MG TAB PO SCH (21:01)
[2023-03-27] MEDS: MORPHINE SULFATE 4 MG/ML SYRINGE IV PRN ×3 (03:26→11:51)
[2023-03-27 06:10] LABS: Glucose,Whole Blood 66 mg/dL (70-110)
[2023-03-27] MEDS: INSULIN ASPART (NovoLOG) 100 UNIT/ML VIAL SQ SCH ×3 (06:12→18:05)
[2023-03-27 07:02] LABS: Glucose,Whole Blood 96 mg/dL (70-110)
[2023-03-27] MEDS ORDERED: PIOGLITAZONE 15 MG TAB PO SCH (09:00)
[2023-03-27] MEDS ORDERED: GLIMEPIRIDE 2 MG TAB PO SCH (09:00)
[2023-03-27] MEDS: PSYLLIUM HUSK 100% 6 GM PACKET PO SCH ×2 (09:25→21:48)
[2023-03-27] MEDS: FLUoxetine HCL 20 MG CAP PO SCH (09:26)
[2023-03-27] MEDS: MULTIVITAMINS, THERA 1 EACH TAB PO SCH (09:26)
[2023-03-27] MEDS: FERROUS SULFATE 325 MG TAB PO SCH (09:26)
[2023-03-27] MEDS: FENOFIBRATE 160 MG TAB PO SCH (09:26)
[2023-03-27] MEDS: MAGNESIUM OXIDE 400 MG TAB PO SCH (09:26)
[2023-03-27] MEDS: allopurinoL 100 MG TAB PO SCH (09:26)
[2023-03-27] MEDS: METOPROLOL SUCCINATE (ER) 25 MG TAB.ER.24H PO SCH (09:26)
[2023-03-27] MEDS: ATORVASTATIN 10 MG TAB PO SCH (09:26)
[2023-03-27] MEDS: clonazePAM 0.5 MG TAB PO SCH ×3 (09:26→21:47)
[2023-03-27] MEDS: BALSALAZIDE DISODIUM 750 MG CAPSULE PO SCH ×3 (09:27→23:07)
--- NOTE | 2023-03-27 09:53 | P.HPOR ---
History of Present Illness H&P Date: 03/27/23 Very pleasant previously healthy 72-year-old female with a medical history significant for having a BMI of 46 who is admitted under my care with a comminuted periprosthetic distal femur fracture. Briefly the patient underwent an uncomplicated knee replacement by me a year ago and was doing very well with no pain in the knee. The patient was going to get her haircut yesterday when she fell onto her right side. She had immediate pain and deformity in the right knee. She was unable to ambulate. She was brought by ambulance to the hospital where x-rays showed a highly comminuted right distal femur fracture. She was admitted under my care. This morning she is complaining of isolated pain in her right knee. She denies any pain prior to her fall and states she was doing very well with her knee replacement. She has no other complaints. 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 right knee replacement 07/23/22 Past Anesthesia/Blood Transfusion Reactions: Motion Sickness Past Psychological History: Anxiety, Depression Additional Psychological History / Comment(s): . Smoking Status: Former smoker Past Alcohol Use History: None Reported Additional Past Alcohol Use History / Comment(s): Pt atarted smoking in 1964 and quit in 2005. Past Drug Use History: None Reported - Past Family History Sister(s) Family Medical History: Myocardial Infarction (IA) Additional Family Medical History / Comment(s): TWO SISTERS HAD AN IA Father Family Medical History: Cancer Additional Family Medical History / Comment(s): Father of stomach cancer. Mother Family Medical History: Cancer Additional Family Medical History / Comment(s): . Medications and Allergies Home Medications Medication Instructions Recorded Confirmed Type FLUoxetine HCL [PROzac] 40 mg PO DAILY 05/03/14 03/26/23 History Fenofibrate Nanocrystallized 145 mg PO DAILY 05/03/14 03/26/23 History [Tricor] OLANZapine [ZyPREXA] 5 mg PO HS 05/03/14 03/26/23 History clonazePAM [KlonoPIN] 0.5 mg PO TID 05/03/14 03/26/23 History allopurinoL [Zyloprim] 100 mg PO DAILY 10/13/20 03/26/23 History Metoprolol Succinate (ER) [Toprol 25 mg PO DAILY 12/10/20 03/26/23 History XL] Atorvastatin [Lipitor] 10 mg PO DAILY 06/11/22 03/26/23 History Multivit with Calcium,Iron,Min 1 tab PO DAILY 06/11/22 03/26/23 History [Women's Multivitamin] Pioglitazone [Actos] 15 mg PO DAILY 06/11/22 03/26/23 History Cinacalcet [Sensipar] 30 mg PO MOTH 03/26/23 03/26/23 History Ferrous Sulfate [Feosol] 325 mg PO DAILY 03/26/23 03/26/23 History Glimepiride [Amaryl] 2 mg PO DAILY 03/26/23 03/26/23 History Insulin Glargine,Hum.rec.anlog 56 units SQ HS 03/26/23 03/26/23 History [Lantus Solostar Pen] Magnesium Oxide [Mag-Ox] 400 mg PO DAILY 03/26/23 03/26/23 History Mesalamine [Mesalamine Dr] 800 mg PO TID 03/26/23 03/26/23 History Allergies Allergy/AdvReac Type Severity Reaction Status Date / Time No Known Allergies Allergy Verified 03/26/23 12:09 Physical Examination The patient is resting comfortably in her hospital bed. She is alert and oriented and able to answer questions. Her head is normocephalic and atraumatic. She demonstrates nonlabored breathing with symmetric chest expans ion. Her abdomen is obese. She has palpable pulses distally. Both upper extremities are without deformity and are nontender to palpation. Left lower extremity is without deformity and is nontender to palpation. A focused examination of the right lower extremity was conducted. On inspection there is a knee immobilizer in place which was taken down. There is mild swelling but no open wounds. There is a well-healed anterior incision over the knee from prior total knee arthroplasty. There is exquisite tenderness diffusely throughout the knee. The thigh and calf are soft. There is mild swelling in the foot but the foot is warm and well perfused with brisk capillary refill. The dorsalis pedis pulses palpable. She is able to actively plantarflex and dorsiflex her toes. There is no pain with passive range of motion of the ankle or foot. Results X-rays and computed tomography scan of the right knee were reviewed. There is a highly comminuted low supracondylar periprosthetic femur fracture with extension into the lateral condyle of the distal femur. The tibial component appears well fixed. - Labs Labs: Abnormal Lab Results - Last 24 Hours (Table) 03/26/23 03/26/23 03/26/23 Range/Units 10:18 10:18 13:27 WBC 12.2 H (3.8-10.6) k/uL Plt Count 510 H (150-450) k/uL Neutrophils # 9.3 H (1.3-7.7) k/uL BUN 34 H (7-17) mg/dL Creatinine 1.29 H (0.52-1.04) mg/dL Glucose 136 H (74-99) mg/dL POC Glucose (mg/dL) 134 H (70-110) mg/dL 03/26/23 03/27/23 Range/Units 17:55 06:09 WBC (3.8-10.6) k/uL Plt Count (150-450) k/uL Neutrophils # (1.3-7.7) k/uL BUN (7-17) mg/dL Creatinine (0.52-1.04) mg/dL Glucose (74-99) mg/dL POC Glucose (mg/dL) 157 H 66 L (70-110) mg/dL H & H 03/26/23 Range/Units 10:18 Hgb 11.5 (11.4-16.0) gm/dL Hct 35.2 (34.0-46.0) % Coagulation 03/26/23 Range/Units 10:18 INR 1.0 (<1.2) Result Diagrams: 03/26/23 10:18 03/26/23 10:18 Assessment and Plan Assessment: Comminuted periprosthetic supracondylar femur fracture BMI 46.6 Plan: I long discussion with the patient this morning on her injury including reviewing her x-rays and computed tomography scan. We discussed that her injury will require surgical intervention. We discussed both open reduction and internal fixation with a locked periarticular distal femur plate versus revision with a distal femoral replacing hinge. Based on the amount of comminution, poor bone quality, low fracture, and extension into the lateral condyle my recomme ndation was to proceed with a distal femur replacement. We discussed the pros and cons of this at length particularly infection and aseptic loosening. The patient understands that she is at a higher risk of having a complication given her BMI. We'll plan for surgery tomorrow afternoon. In the interim the patient is to be strictly nonweightbearing on her right lower extremity with her knee immobilizer in place. Internal medicine has been consulted and has cleared the patient with low risk. Time with Patient: Greater than 30
[2023-03-27 12:47] LABS: Glucose,Whole Blood 180 mg/dL (70-110)
[2023-03-27] MEDS: HYDROcodone/APAP 5-325MG 1 EACH TAB PO PRN ×2 (14:59→20:06)
--- NOTE | 2023-03-27 17:01 | P.PN ---
Progress Note - Text Progress Note Date: 03/27/23 - Chief Complaint Right leg injury History of presenting complaint: very pleasant 72-year-old patient of Dr. Persaud. Chronic stable medical conditions include diabetes, hyperlipidemia, hypertension, primary osteoarthritis, peripheral neuropathy, bilateral breast cancer with bilateral mastectomy, IBS, diverticulosis, chronic low back arthritis. Anxiety depression. Diagnosis of ulcerative colitis for about 15 years. On Asacol 800 mg 3 times a day. In November 2020 did undergo coloscopy by Dr. Moreno. Normal- appearing colon. Patient does follow with Dr. Angi Stallings. On an average has about 10 bowel movements a day. Present for years. Patient today was at the [facility]. Troponin went and fell down. Computed tomography scan showing a comminuted fracture distal metaphyseal femur adjacent to the knee processes. Some external rotation. Right lower extremity - brace. Patient's able to get about the house.. No chest pain or palpitation. March 27: Reclining bed. Pain control. Oral intake fair. Pending surgery tomorrow. Discussed with patient has would've the bedside. Active Medications Hydrocodone Bitart/Acetaminophen (Hydrocodone/Apap 5-325mg 1 Each Tab) 1 each PO Q4HR PRN PRN Reason: Moderate Pain (Scale 4 to 6) Last Admin: 03/27/23 14:59 Dose: 1 each Allopurinol (Allopurinol 100 Mg Tab) 100 mg PO DAILY [facility] Last Admin: 03/27/23 09:26 Dose: 100 mg Atorvastatin Calcium (Atorvastatin 10 Mg Tab) 10 mg PO DAILY [facility] Last Admin: 03/27/23 09:26 Dose: 10 mg Balsalazide (Balsalazide Disodium 750 Mg Capsule) 2,250 mg PO TID [facility] Last Admin: 03/27/23 09:27 Dose: 2,250 mg Cinacalcet (Cinacalcet 30 Mg Tab) 30 mg PO MOTH [facility] Clonazepam (Clonazepam 0.5 Mg Tab) 0.5 mg PO TID [facility] Last Admin: 03/27/23 09:26 Dose: 0.5 mg Dextrose/Water (Dextrose 50% Syringe 50 Ml) 25 ml IVP PER PROTOCOL PRN; Protoc ol PRN Reason: Hypoglycemia Dextrose/Water (Dextrose 50% Syringe 50 Ml) 50 ml IVP PER PROTOCOL PRN; Protocol PRN Reason: Hypoglycemia Enoxaparin Sodium (Enoxaparin 40 Mg/0.4 Ml Syringe) 40 mg SQ DAILY@1900 [facility] Last Admin: 03/26/23 20:25 Dose: 40 mg Fenofibrate (Fenofibrate 160 Mg Tab) 160 mg PO DAILY [facility] Last Admin: 03/27/23 09:26 Dose: 160 mg Ferrous Sulfate (Ferrous Sulfate 325 Mg Tab) 325 mg PO DAILY [facility] Last Admin: 03/27/23 09:26 Dose: 325 mg Fluoxetine HCl (Fluoxetine Hcl 20 Mg Cap) 40 mg PO DAILY [facility] Last Admin: 03/27/23 09:26 Dose: 40 mg Insulin Aspart (Insulin Aspart (Novolog) 100 Unit/Ml Vial) 0 unit SQ AC-TID [facility]; Protocol Last Admin: 03/27/23 13:51 Dose: 3 unit Insulin Detemir (Insulin Detemir (Levemir) 100 Unit/Ml Syr) 45 unit SQ HS [facility] Last Admin: 03/26/23 21:01 Dose: 45 unit Lorazepam (Lorazepam 0.5 Mg Tab) 0.5 mg PO Q6HR PRN PRN Reason: Anxiety Magnesium Oxide (Magnesium Oxide 400 Mg Tab) 400 mg PO DAILY [facility] Last Admin: 03/27/23 09:26 Dose: 400 mg Melatonin (Melatonin 3 Mg Tablet) 3 mg PO HS PRN PRN Reason: Insomnia Metoprolol Succinate (Metoprolol Succinate (Er) 25 Mg Tab.Er.24h) 25 mg PO DAILY [facility] Last Admin: 03/27/23 09:26 Dose: 25 mg Morphine Sulfate (Morphine Sulfate 4 Mg/Ml Syringe) 4 mg IV Q4HR PRN PRN Reason: Severe Pain (Scale 7 to 10) Last Admin: 03/27/23 11:51 Dose: 4 mg Multivitamins (Multivitamins, Thera 1 Each Tab) 1 each PO DAILY [facility] Last Admin: 03/27/23 09:26 Dose: 1 each Naloxone HCl (Naloxone 0.4 Mg/Ml 1 Ml Vial) 0.2 mg IV Q2M PRN PRN Reason: Opioid Reversal Olanzapine (Olanzapine 5 Mg Tab) 5 mg PO HS [facility] Last Admin: 03/26/23 21:01 Dose: 5 mg Ondansetron HCl (Ondansetron 4 Mg/2 Ml Vial) 4 mg IVP Q8HR PRN PRN Reason: Nausea And Vomiting Psyllium Hydrophilic Mucilloid (Psyllium Husk 100% 6 Gm Packet) 6 gm PO BID [facility] Last Admin: 03/27/23 09:25 Dose: 6 gm Past medical history to include: Diabetes mellitus type 2, hyperlipidemia, hypertension, osteoarthritis, perip heral neuropathy, bilateral breast cancer with bilateral mastectomies, ulcerative colitis-colonoscopy has shown normal colon and biopsy was negative., diverticulosis, chronic low back pain and arthritis, anxiety depression. COVID- 19 Social history: . Smoked for 41 years stopped in 2005. No alcohol Physical examination: VITAL SIGNS: Weight 0.7, 78, 16, 1 10 x 53, 92% room air GENERAL: BMI 46.6, reclining bed comfortable EYES: Pupils equal. Conjunctiva normal. HEENT: External appearance of nose and ears normal, oral cavity grossly normal. NECK: JVD not raised; masses not palpable. HEART: First and second heart sounds are normal; no edema. LUNGS: Respiratory rate increased, decreased breath sounds ABDOMEN: Soft, nontender, liver spleen not palpable, no masses palpable. PSYCH: Alert and oriented x3; mood and affect anxiousl. MUSCULAR skeletal: Evidence of OA especially in the hands . Right lower extremity in a brace INVESTIGATIONS, reviewed in the clinical context: White count 12.2 hemoglobin 11.5 platelets 510 sodium 140 potassium 4 BUN 34 creatinine 1.9 EKG tracing personally reviewed by me-normal sinus rhythm. Chest x-ray film personally reviewed by me-: Portable. No obvious infiltrate Knee x-ray/femur CT: Comminuted fracture distal metadiaphyseal femur adjacent to a knee processes. Displacement of the distal fracture fragment from the proximal fracture Assessment and plan: -Fall leading to acute Comminuted fracture distal metadiaphyseal femur adjacent to a knee processes. Displacement of the distal fracture fragment from the proximal fracture. Right leg in a immobilizer/place. Spoke to Dr. Stack from orthopedics. Patient been boarded for surgery for Tuesday. 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 And Amaryl. Lantus 40 units subcu daily at bedtime. Sliding scale with coverage. -Hyperlipidemia Lipitor, TriCor -Anxiety not otherwise specified Klonopin 0.5 mg 3 times a day -Depression Zyprexa 5 mg daily at bedtime, Prozac 40 mg a day -Hyperuricemia Allopurinol -Essential hypertension Toprol-XL 25 mg a day -Primary osteoarthritis Pain medications when necessary -Chronic kidney disease stage III from diabetic nephropathy and hypertensive nephrosclerosis Follow renal function medically stable to proceed with surgery. moderate risk from a cardiovascular standpoint. Has limited exercise tolerance. No contra indications to proceed with surgery. Discussed with patient and Thank you Dr. Stack
[2023-03-27 17:09] LABS: Glucose,Whole Blood 178 mg/dL (70-110)
[2023-03-27] MEDS: ENOXAPARIN 40 MG/0.4 ML SYRINGE SQ SCH (20:07)
[2023-03-27 21:06] LABS: Glucose,Whole Blood 277 mg/dL (70-110)
[2023-03-27] MEDS: OLANZapine 5 MG TAB PO SCH (21:47)
[2023-03-27] MEDS: INSULIN DETEMIR (LEVEMIR) 100 UNIT/ML SYR SQ SCH (21:48)
[2023-03-28] MEDS: HYDROcodone/APAP 5-325MG 1 EACH TAB PO PRN ×3 (05:10→15:58)
[2023-03-28 06:59] LABS: Basophils % (A) 0 %; Eosinophils # (A) 0.1 k/uL (0-0.7); Eosinophils % (A) 1 %; HCT 29.5 % (34.0-46.0); Lymphocytes # (A) 1.8 k/uL (1.0-4.8); Lymphocytes % (A) 19 %; MCHC 32.3 g/dL (31.0-37.0); MCV 89.8 fL (80.0-100.0); Mean Platelet Volume 7.6; Monocytes # (A) 0.8 k/uL (0-1.0); Monocytes % (A) 9 %; Neutrophils # (A) 6.2 k/uL (1.3-7.7); Neutrophils % (A) 69 %; Platelet Count 356 k/uL (150-450); RBC 3.29 m/uL (3.80-5.40); RDW 13.9 % (11.5-15.5); WBC 9.1 k/uL (3.8-10.6)
[2023-03-28 07:02] LABS: HGB 9.5 gm/dL (11.4-16.0)
[2023-03-28 07:31] LABS: African American GFR (CKD) 44 (>60 ml/min/1.73 sqM); Anion Gap 7 mmol/L; Blood Urea Nitrogen 36 mg/dL (7-17); Calcium 9.4 mg/dL (8.4-10.2); Carbon Dioxide 30 mmol/L (22-30); Chloride 100 mmol/L (98-107); Glucose 129 mg/dL (74-99); Non-African American GFR(CKD) 38 (>60 ml/min/1.73 sqM); Potassium 4.4 mmol/L (3.5-5.1); Sodium 137 mmol/L (137-145)
[2023-03-28 07:45] LABS: Glucose,Whole Blood 117 mg/dL (70-110)
[2023-03-28] MEDS ORDERED: CINACALCET 30 MG TAB PO SCH (09:00)
[2023-03-28] MEDS: INSULIN ASPART (NovoLOG) 100 UNIT/ML VIAL SQ SCH ×3 (09:40→16:36)
[2023-03-28] MEDS: METOPROLOL SUCCINATE (ER) 25 MG TAB.ER.24H PO SCH (09:49)
[2023-03-28] MEDS: allopurinoL 100 MG TAB PO SCH (09:49)
[2023-03-28] MEDS: ATORVASTATIN 10 MG TAB PO SCH (09:49)
[2023-03-28] MEDS: clonazePAM 0.5 MG TAB PO SCH ×2 (09:49→16:02)
[2023-03-28] MEDS: MULTIVITAMINS, THERA 1 EACH TAB PO SCH (09:49)
[2023-03-28] MEDS: MAGNESIUM OXIDE 400 MG TAB PO SCH (09:49)
[2023-03-28] MEDS: FENOFIBRATE 160 MG TAB PO SCH (09:49)
[2023-03-28] MEDS: FERROUS SULFATE 325 MG TAB PO SCH (09:49)
[2023-03-28] MEDS: FLUoxetine HCL 20 MG CAP PO SCH (09:49)
[2023-03-28] MEDS: BALSALAZIDE DISODIUM 750 MG CAPSULE PO SCH ×2 (09:50→16:02)
[2023-03-28] MEDS: PSYLLIUM HUSK 100% 6 GM PACKET PO SCH ×2 (09:51→23:53)
[2023-03-28 12:03] LABS: Glucose,Whole Blood 118 mg/dL (70-110)
[2023-03-28] MEDS ORDERED: TRANEXAMIC ACID 1,000 MG in SODIUM CHLORIDE 0.9% 100 ML IVPB ONE ×4 (14:03)
[2023-03-28] MEDS ORDERED: ROPIVACAINE/EPI/CLONIDINE/KET 50 ML SYRINGE MISCELLANE PRN (14:03)
[2023-03-28] MEDS ORDERED: ROPIVACAINE 246.25 MG, EPINEPHrine 0.5 MG, KETOROLAC (30 mg/mL) 30 MG, cloNIDine HCL/PF... MISCELLANE PRN ×5 (14:13)
[2023-03-28] MEDS ORDERED: LACTATED RINGERS 1,000 ML IV ONE ×4 (16:50→21:09)
[2023-03-28] MEDS ORDERED: MIDAZOLAM 2 MG/2 ML VIAL IV ONE (16:51)
[2023-03-28] MEDS ORDERED: fentaNYL (PF) 50 MCG/1 ML VIAL IV ONE (16:51)
[2023-03-28] MEDS ORDERED: fentaNYL (PF) 50 MCG/ML 2 ML AMP ONE (16:55)
[2023-03-28] MEDS ORDERED: ALBUTEROL HFA INHALER INHALATION ONE (16:55)
[2023-03-28] MEDS ORDERED: GLYCOPYRROLATE 0.2 MG/ML 2 ML VIAL ONE (16:55)
[2023-03-28] MEDS ORDERED: NEOSTIGMINE 1 MG/ML 10 ML VIAL ONE (16:55)
[2023-03-28] MEDS ORDERED: ROCURONIUM 10 MG/ML (5 ML VIAL) IV ONE (16:55)
[2023-03-28] MEDS ORDERED: ePHEDrine 50 MG/ML 1 ML VIAL ONE (16:55)
[2023-03-28] MEDS ORDERED: PROPOFOL 10 MG/ML 20 ML VIAL IV ONE (16:55)
[2023-03-28] MEDS ORDERED: LIDOCAINE 2% INJ 20 MG/ML (2 ML VIAL) ONE (16:55)
[2023-03-28] MEDS ORDERED: KETAMINE 10 MG/ML 20 ML VIAL ONE (16:55)
[2023-03-28] MEDS ORDERED: LABETALOL 5 MG/ML VIAL MDV ONE (16:55)
[2023-03-28] MEDS ORDERED: MIDAZOLAM 2 MG/2 ML VIAL ONE (16:55)
[2023-03-28] MEDS ORDERED: PHENYLEPHRINE-0.9% NACL SYG 1,000 MCG/10 ML SYRINGE ONE (16:55)
[2023-03-28] MEDS ORDERED: TRANEXAMIC ACID IN NACL,ISO-OS 1,000 MG/100 ML BAG ONE (16:55)
[2023-03-28] MEDS ORDERED: SUCCINYLCHOLINE CHLORIDE 200 MG/10 ML VIAL IV ONE (16:55)
[2023-03-28] MEDS ORDERED: ONDANSETRON 4 MG/2 ML VIAL IVP ONE (16:59)
[2023-03-28] MEDS ORDERED: DEXAMETHASONE SOD PHOSPHATE 4 MG/ML 1 ML VIAL IV ONE (16:59)
[2023-03-28 17:06] LABS: Glucose,Whole Blood 122 mg/dL (70-110)
--- NOTE | 2023-03-28 17:40 | P.ANPRN ---
Procedure Note - Anesthesia - Nerve Block Performed Right Adductor Canal Single Time Out Performed: Yes Date of Procedure: 03/28/23 Procedure Start Time: 16:51 Procedure Stop Time: 16:55 Location of Patient: PreOp Indication: Acute Post-Operative Pain, Requested by Surgeon Specifically requested for management of pain by DrDana: Neeraj Stack Sedation Type: Sedate with meaningful contact maintained Preparation: Sterile Prep Position: Supine Catheter: None Needle Types: Pajunk Needle Gauge: 21 Ultrasound used to visualize needle placement: Yes Ultrasound used to observe medication spread: Yes Injectate: 0.5% Ropivacaine (see comment for volume) (30cc) Blood Aspirated: No Pain Paresthesia on Injection Noted: No Resistance on Injection: Normal Image Stored and Saved: Yes Events: Uneventful and Well Tolerated
--- NOTE | 2023-03-28 19:40 | P.PN ---
Progress Note - Text Progress Note Date: 03/28/23 - Chief Complaint Right leg injury History of presenting complaint: very pleasant 72-year-old patient of Dr. Persaud. Chronic stable medical conditions include diabetes, hyperlipidemia, hypertension, primary osteoarthritis, peripheral neuropathy, bilateral breast cancer with bilateral mastectomy, IBS, diverticulosis, chronic low back arthritis. Anxiety depression. Diagnosis of ulcerative colitis for about 15 years. On Asacol 800 mg 3 times a day. In November 2020 did undergo coloscopy by Dr. Moreno. Normal- appearing colon. Patient does follow with Dr. Angi Stallings. On an average has about 10 bowel movements a day. Present for years. Patient today was at the [facility]. Troponin went and fell down. Computed tomography scan showing a comminuted fracture distal metaphyseal femur adjacent to the knee processes. Some external rotation. Right lower extremity - brace. Patient's able to get about the house.. No chest pain or palpitation. March 27: Reclining bed. Pain control. Oral intake fair. Pending surgery tomorrow. Discussed with patient has would've the bedside. March 28: Patient seen by me this morning prior to surgery. In bed. Comfortable. Nothing by mouth. Pending surgery this afternoon. Current medications reviewed Past medical history to include: Diabetes mellitus type 2, hyperlipidemia, hypertension, osteoarthritis, peripheral neuropathy, bilateral breast cancer with bilateral mastectomies, ulcerative colitis-colonoscopy has shown normal colon and biopsy was negative., diverticulosis, chronic low back pain and arthritis, anxiety depression. COVID- 19 Social history: . Smoked for 41 years stopped in 2005. No alcohol Physical examination: VITAL SIGNS: 98.6, 95, 16, 160/71, 94% room air GENERAL: BMI 46.6, reclining bed comfortable EYES: Pupils equal. Conjunctiva normal. HEENT: External appearance of nose and ears normal, oral cavity grossly normal. NECK: JVD not raised; masses not palpable. HEART: First and second heart sounds are normal; no edema. LUNGS: Respiratory rate increased, decreased breath sounds ABDOMEN: Soft, nontender, liver spleen not palpable, no masses palpable. PSYCH: Alert and oriented x3; mood and affect anxiousl. MUSCULAR skeletal: Evidence of OA especially in the hands . Right lower extremity in a brace INVESTIGATIONS, reviewed in the clinical context: March 28: White count 9.1 hemoglobin 9.5 potassium 4.4 BUN 36 creatinine 1.37 White count 12.2 hemoglobin 11.5 platelets 510 sodium 140 potassium 4 BUN 34 creatinine 1.9 EKG tracing personally reviewed by me-normal sinus rhythm. Chest x-ray film personally reviewed by me-: Portable. No obvious infiltrate Knee x-ray/femur CT: Comminuted fracture distal metadiaphyseal femur adjacent to a knee processes. Displacement of the distal fracture fragment from the proximal fracture Assessment and plan: -Fall leading to acute Comminuted fracture distal metadiaphyseal femur adjacent to a knee processes. Displacement of the distal fracture fragment from the proximal fracture. Right leg in a immobilizer/place. Spoke to Dr. Stack from orthopedics. 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 And Amaryl. Lantus 40 units subcu daily at bedtime. Sliding scale with coverage. -Hyperlipidemia Lipitor, TriCor -Anxiety not otherwise specified Klonopin 0.5 mg 3 times a day -Depression Zyprexa 5 mg daily at bedtime, Prozac 40 mg a day -Hyperuricemia Allopurinol -Essential hypertension Toprol-XL 25 mg a day -Primary osteoarthritis Pain medications when necessary -Chronic kidney disease stage III from diabetic nephropathy and hypertensive nephrosclerosis Follow renal function medically stable to proceed with surgery. moderate risk from a cardiovascular standpoint. Has limited exercise tolerance. No contra indications to proceed with surgery. Discussed with patient , pending surgery this afternoon Thank you Dr. Stack
[2023-03-28] MEDS ORDERED: HYDROmorphone 0.5 MG/0.5 ML SYRINGE IVP PRN ×2 (21:42)
--- NOTE | 2023-03-28 22:57 | XR ---
EXAMINATION TYPE: XR knee limited RT, FL guidance operating room DATE OF EXAM: 03/28/2023 CLINICAL HISTORY: Right knee fracture. TECHNIQUE: Fluoroscopy. Intraoperative limited views right knee. COMPARISON: Right knee x-ray 2 days earlier. FINDINGS: Fluoroscopic guidance was provided during right knee prosthesis revision procedure perform ed by Dr. Stack. A total of 55 seconds of fluoroscopic time was utilized during the procedure and 1 spot images was acquired. Total dose area product (DAP) in uGy*m?, mGy*cm? (or similar: 1.8513. Single intraoperative image acquired shows partial visualization of long stem prosthesis. IMPRESSION: As Above.
[2023-03-28] MEDS ORDERED: propofoL 100 ML IV ONE (23:00)
[2023-03-28 23:16] LABS: Glucose,Whole Blood 282 mg/dL (70-110)
[2023-03-28] MEDS: LACTATED RINGERS 1,000 ML IV SCH (23:20)
[2023-03-28] MEDS: NOREPINEPHRINE 4 MG in SODIUM CHLORIDE 0.9% 250 ML IV SCH (23:20)
[2023-03-28] MEDS: SODIUM CHLORIDE 0.9% 1,000 ML IV SCH (23:51)
[2023-03-28] MEDS: OLANZapine 5 MG TAB PO SCH (23:52)
[2023-03-28] MEDS: ENOXAPARIN 40 MG/0.4 ML SYRINGE SQ SCH (23:52)
[2023-03-28 23:57] LABS: ABG Base Excess -8.8 mmol/L; ABG HCO3 21 mmol/L (21-25); ABG Oxygen Saturation 96.8 % (94-97); ABG PO2 108 mmHg (83-108); ABG TCO2 24 mmol/L (19-24); Allen Test Performed? Yes
[2023-03-28 23:59] LABS: ABG PCO2 75 mmHg (35-45); ABG PH 7.07 (7.35-7.45)
[2023-03-29] MEDS: IPRATROPIUM-ALBUTEROL 3 ML NEB INHALATION SCH ×6 (00:01→20:52)
[2023-03-29] MEDS ORDERED: SODIUM CHLORIDE 0.9% 1,000 ML IV ONE (00:36)
[2023-03-29] MEDS: INSULIN DETEMIR (LEVEMIR) 100 UNIT/ML SYR SQ SCH (00:41)
[2023-03-29 00:43] LABS: Basophils # (A) 0.1 k/uL (0-0.2); Basophils % (A) 1 %; Eosinophils # (A) 0.1 k/uL (0-0.7); Eosinophils % (A) 0 %; HCT 28.7 % (34.0-46.0); HGB 9.1 gm/dL (11.4-16.0); Hypochromasia Slight; Lymphocytes # (A) 1.9 k/uL (1.0-4.8); Lymphocytes % (A) 8 %; MCH 29.3 pg (25.0-35.0); MCHC 31.6 g/dL (31.0-37.0); MCV 92.7 fL (80.0-100.0); Mean Platelet Volume 7.5; Monocytes # (A) 1.7 k/uL (0-1.0); Monocytes % (A) 7 %; Neutrophils % (A) 84 %; Platelet Count 405 k/uL (150-450); RDW 15.2 % (11.5-15.5)
--- NOTE | 2023-03-29 00:58 | P.PCN ---
Date of Procedure: 03/29/23 Preoperative Diagnosis: Hypotension Postoperative Diagnosis: Hypotension Procedure(s) Performed: Insertion of a left radial arterial line Indications for Procedure: Continuous blood pressure monitoring and frequent blood draws Description of Procedure: Informed consent was obtained, and a procedural timeout was performed. The patient was placed in supine position. The left radial region was prepared in a sterile fashion, and a sterile drape was applied. The left radial artery was palpated, easily cannulated, and a guidewire was placed. A Cook catheter was inserted over the guidewire, and the guidewire was removed. There was good arterial blood flow, good arterial waveform, and no complications. The line was secured with using a 3-0 silk suture.
[2023-03-29] MEDS: BALSALAZIDE DISODIUM 750 MG CAPSULE PO SCH (01:03)
[2023-03-29] MEDS: clonazePAM 0.5 MG TAB PO SCH (01:03)
[2023-03-29 01:07] LABS: Albumin 3.4 g/dL (3.5-5.0); Magnesium 2.2 mg/dL (1.6-2.3); Total Bilirubin 2.2 mg/dL (0.2-1.3); Total Protein 5.5 g/dL (6.3-8.2)
[2023-03-29] MEDS ORDERED: TERBUTALINE FOR EXTRAVASATION 1 MG/ML VIAL SQ STA ×2 (01:08→02:16)
[2023-03-29 01:27] LABS: Potassium 6.9 mmol/L (3.5-5.1)
--- NOTE | 2023-03-29 01:27 | XR ---
EXAM: XR Right Knee, 3 Views CLINICAL HISTORY: ITS.REASON XR Reason: post op TECHNIQUE: Three views of the right knee. COMPARISON: No relevant prior studies available. FINDINGS: Bones/joints: Postsurgical changes from a restrained extended knee arthroplasty. There is an ossific fragment along the lateral aspect of the femoral component. Surgical drain in place. Soft tissue gas and edema. IMPRESSION: Postsurgical changes as described.
--- NOTE | 2023-03-29 01:30 | XR ---
EXAM: XR Chest, 1 View CLINICAL HISTORY: ITS.REASON XR Reason: Tube placement TECHNIQUE: Frontal view of the chest. COMPARISON: No relevant prior studies available. FINDINGS: Lungs: Atelectasis at the left base. Pleural space: Small left pleural effusion. Heart: Cardiomegaly. Tubes, lines and devices: Endotracheal tube terminates 2.3 cm above the radha. IMPRESSION: 1. Endotracheal tube terminates 2.3 cm above the radha. 2. Atelectasis at the left base. 3. Small left pleural effusion.
[2023-03-29] MEDS ORDERED: DEXTROSE 50% SYRINGE 50 ML IVP STA (01:31)
[2023-03-29] MEDS ORDERED: INSULIN REGULAR 100 UNIT/ML VIAL (IV) IV ONE (01:31)
[2023-03-29 01:32] LABS: Glucose,Whole Blood 264 mg/dL (70-110)
[2023-03-29] MEDS ORDERED: ALBUTEROL NEBULIZED (CONC) 10 MG, SODIUM CHLORIDE 0.9% NEBULIZ 3 ML INHALATION ONE ×2 (01:35)
[2023-03-29] MEDS ORDERED: CALCIUM GLUCONATE IN NACL 1 GM in SALINE 1 100ML.BAG IVPB ONE (01:35)
--- NOTE | 2023-03-29 01:49 | P.CNPUL ---
History of Present Illness Consult date: 03/29/23 Requesting physician: Aline Avendaño Reason for consult: other (ICU management) Chief complaint: Fall resulting in a right comminuted periprosthetic distal femur fracture History of present illness: I'm seeing this patient in new consultation today 03/29/2023 following a repair of a comminuted periprosthetic distal femur fracture. Patient is a 72-year-old white female with significant past medical history of previous right total knee replacement on 07/23/2022, diabetes mellitus, hypertension, obstructive sleep apnea, bilateral mastectomy for suspected breast cancer, and is an ex-smoker. Patient presented to the emergency room on 03/26/2023 after she tripped over a cord at the [employer] salon, and landed on her right knee. A CT of the right femur without contrast showed a comminuted fracture of the distal metadiaphyseal femur adjacent to the knee prosthesis, and there was displacement of the distal fracture fragment from the proximal fracture. She was admitted to the hospital, and taken to the operating room yesterday evening. Patient reportedly had stabilization of the distal femur fracture with revision of the right knee prosthesis. Intraoperatively, the patient became hypotensive requiring multiple fluid boluses with a total of 2.8 L of lactated Ringer's, 1 L albumin, and was subsequently started on a Woody-Synephrine infusion. Patient's hemoglobin level was reportedly 6.8 intraoperatively, and the patient received a total of 2 units PRBC. Patient was then transferred to the intensive care unit in critical condition. Patient is currently lying in bed, intubated to the mechanical ventilator. Initial ventilator settings were assist control, respiratory rate 14, tidal volume 350, FiO2 100%, PEEP of 5. ABGs done on these settings showed a pO2 of 108, pCO2 of 75, pH of 7.07. The patient's respiratory rate was increased to 20 and tidal volume to 400. Peak pressures are currently 31 and vital pressures are 18. Propofol infusing for sedation at 30 mcg/kg/m. Patient is synchronous mechanical ventilator. Postoperative chest x-ray shows endotracheal tube above the radha, cardiomegaly, and small left pleural effusion. So far, the patient is still hypotensive, and will be given an additional liter of normal saline. Patient was transitioned to Levophed, and is currently infusing at 0.28 mics per kilogram per minute. A left radial arterial line was inserted. There is a indwelling urinary catheter in place, with only about 10 ML's of urine since surgery. Patient does have a Hemovac from the right postsurgical knee draining small amount of sanguinous output. Patient does have a right knee immobilizer in place. There is postsurgical wound VAC in place. Dilaudid is on for analgesia. Postoperative CBC after 2 units PRBC transfusion shows a WBC count of 25, hemoglobin 9.1, hematocrit 28.7, platelets 405. BMP postoperatively shows a sodium 136, potassium 6.9, chloride 100, serum CO2 22, BUN 34, creatinine 1.74, glucose 232. LFTs are elevated with an AST of 1044 and ALT of 154. Patient's hyperkalemia will be treated with 10 units regular insulin, 1 amp D50 W, 1 g calcium gluconate, and albuterol. Lactic acid level is 4.2, and is receiving an additional liter of normal saline. Patient will be monitored in the intensive care unit. Review of Systems Unable to obtain a review of systems due to the patient being intubated on mechanical ventilator Past Medical History Past Medical History: Diabetes Mellitus, Hypertension, Osteoarthritis (OA), Pneumonia, Sleep Apnea/CPAP/BIPAP Additional Past Medical History / Comment(s): covid 10/14/20-10/21/20, hypercalcemia, bilateral mastectomy but told after it was not cancer, colitis, varicose veins, "irregular urination" History of Any Multi-Drug Resistant Organisms: None Reported Past Surgical History: Breast Surgery, Hysterectomy, Joint Replacement, Tonsillectomy Additional Past Surgical History / Comment(s): Bilateral mastectomies, total L and R knee arthroplasty, colonoscopies, bilateral cataract removals/lens imp lants. right knee replacement 07/23/22 Past Anesthesia/Blood Transfusion Reactions: Motion Sickness Past Psychological History: Anxiety, Depression Additional Psychological History / Comment(s): . Smoking Status: Former smoker Past Alcohol Use History: None Reported Additional Past Alcohol Use History / Comment(s): Pt atarted smoking in 1964 and quit in 2005. Past Drug Use History: None Reported - Past Family History Sister(s) Family Medical History: Myocardial Infarction ([place]) Additional Family Medical History / Comment(s): TWO SISTERS HAD AN [place] Father Family Medical History: Cancer Additional Family Medical History / Comment(s): Father of stomach cancer. Mother Family Medical History: Cancer Additional Family Medical History / Comment(s): . Medications and Allergies Home Medications Medication Instructions Recorded Confirmed Type FLUoxetine HCL [PROzac] 40 mg PO DAILY 05/03/14 03/26/23 History Fenofibrate Nanocrystallized 145 mg PO DAILY 05/03/14 03/26/23 History [Tricor] OLANZapine [ZyPREXA] 5 mg PO HS 05/03/14 03/26/23 History clonazePAM [KlonoPIN] 0.5 mg PO TID 05/03/14 03/26/23 History allopurinoL [Zyloprim] 100 mg PO DAILY 10/13/20 03/26/23 History Metoprolol Succinate (ER) [Toprol 25 mg PO DAILY 12/10/20 03/26/23 History XL] Atorvastatin [Lipitor] 10 mg PO DAILY 06/11/22 03/26/23 History Multivit with Calcium,Iron,Min 1 tab PO DAILY 06/11/22 03/26/23 History [Women's Multivitamin] Pioglitazone [Actos] 15 mg PO DAILY 06/11/22 03/26/23 History Cinacalcet [Sensipar] 30 mg PO MOTH 03/26/23 03/26/23 History Ferrous Sulfate [Feosol] 325 mg PO DAILY 03/26/23 03/26/23 History Glimepiride [Amaryl] 2 mg PO DAILY 03/26/23 03/26/23 History Insulin Glargine,Hum.rec.anlog 56 units SQ HS 03/26/23 03/26/23 History [Lantus Solostar Pen] Magnesium Oxide [Mag-Ox] 400 mg PO DAILY 03/26/23 03/26/23 History Mesalamine [Mesalamine Dr] 800 mg PO TID 03/26/23 03/26/23 History Allergies Allergy/AdvReac Type Severity Reaction Status Date / Time No Known Allergies Allergy Verified 03/28/23 17:41 Physical Exam Vitals: Vital Signs Temp Pulse Pulse Resp BP Pulse Ox FiO2 03/29/23 00:02 103 H 03/28/23 23:12 100 03/28/23 23:09 100 03/28/23 16:59 88 18 143/94 94 L 03/28/23 16:51 98.7 F 88 18 159/64 93 L 03/28/23 11:21 99.1 F 87 16 160/72 93 L 03/28/23 07:13 98.6 F 85 16 160/71 94 L 03/28/23 02:28 98.5 F 79 16 154/74 93 L Intake and Output 03/28/23 03/28/23 03/29/23 14:59 22:59 06:59 Intake Total 3447 Output Total 1460 Balance 1986 Intake: IV 2850 Blood Product 597 Rc As-1 Unit 310 [id number] Rc Pheresis As-3 Unit 287 [id number] Output: Urine 960 Estimated Blood Loss 500 Other: Voiding Method External Catheter GENERAL EXAM: Sedated 72-year-old white female, who is synchronous with mechanical ventilator HEAD: Normocephalic and atraumatic EYES: Normal reaction of pupils, equal size. NOSE: Clear with pink turbinates. THROAT: No erythema or exudates. NECK: No masses, no JVD. CHEST: No chest wall deformity. LUNGS: Equal air entry with diffuse rhonchi. no crackles, wheeze, or focal dullness. Intubated on mechanical ventilator. CVS: S1 and S2 normal with no audible murmur, regular rhythm. No extra heart sounds ABDOMEN: Obese abdomen. No hepatosplenomegaly, active bowel sounds, no guarding or rigidity. SPINE: No scoliosis or deformity SKIN: No rashes CENTRAL NERVOUS SYSTEM: No focal deficits, tone is normal in all 4 extremities. Patient is sedated and minimally responsive to physical stimulation EXTREMITIES: There is a right knee immobilizer in place. Pedal pulses are present. Results - Laboratory Findings CBC and BMP: 03/29/23 00:13 03/29/23 00:13 ABG ABG pH 7.07 (7.35-7.45) L* 03/28/23 23:52 ABG pCO2 75 mmHg (35-45) H* 03/28/23 23:52 ABG pO2 108 mmHg (83-108) 03/28/23 23:52 ABG O2 Saturation 96.8 % (94-97) 03/28/23 23:52 PT/INR, D-dimer PT 10.2 sec (9.0-12.0) 03/26/23 10:18 INR 1.0 (<1.2) 03/26/23 10:18 Abnormal lab findings: Abnormal Labs 03/26/23 03/26/23 03/26/23 10:18 10:18 10:18 WBC 12.2 H RBC Hgb Hct Plt Count 510 H Neutrophils # 9.3 H ABG pH ABG pCO2 BUN 34 H Creatinine 1.29 H Glucose 136 H POC Glucose (mg/dL) Hemoglobin A1c 6.1 H Crossmatch 03/26/23 03/26/23 03/26/23 10:20 13:27 17:55 WBC RBC Hgb Hct Plt Count Neutrophils # ABG pH ABG pCO2 BUN Creatinine Glucose POC Glucose (mg/dL) 134 H 157 H Hemoglobin A1c Crossmatch See Detail 03/27/23 03/27/23 03/27/23 06:09 12:45 17:07 WBC RBC Hgb Hct Plt Count Neutrophils # ABG pH ABG pCO2 BUN Creatinine Glucose POC Glucose (mg/dL) 66 L 180 H 178 H Hemoglobin A1c Crossmatch 03/27/23 03/28/23 03/28/23 21:05 06:04 06:04 WBC RBC 3.29 L Hgb 9.5 L D Hct 29.5 L Plt Count Neutrophils # ABG pH ABG pCO2 BUN 36 H Creatinine 1.37 H Glucose 129 H POC Glucose (mg/dL) 277 H Hemoglobin A1c Crossmatch 03/28/23 03/28/23 03/28/23 07:43 12:02 17:04 WBC RBC Hgb Hct Plt Count Neutrophils # ABG pH ABG pCO2 BUN Creatinine Glucose POC Glucose (mg/dL) 117 H 118 H 122 H Hemoglobin A1c Crossmatch 03/28/23 03/28/23 23:14 23:52 WBC RBC Hgb Hct Plt Count Neutrophils # ABG pH 7.07 L* ABG pCO2 75 H* BUN Creatinine Glucose POC Glucose (mg/dL) 282 H Hemoglobin A1c Crossmatch - Diagnostic Findings Chest x-ray: image reviewed Assessment and Plan Assessment: Right comminuted fracture of the distal metadiaphyseal femur adjacent to the knee prosthesis, and there was displacement of the distal fracture fragment from the proximal fracture status post stabilization and revision of the prior right knee prosthesis. Hypotension and suspected hypovolemic shock, refractory to fluid resuscitation w ith a total of 2.8 L lactated Ringer's, 1 L albumin, and was subsequently started on Woody-Synephrine infusion. Patient was transitioned to Levaquin infusion. Acute blood loss anemia. Patient reportedly had an intraoperative hemoglobin of 6.8 status post transfusion and its PRBC. lactic acidemia Acute kidney injury, creatinine 1.74 Hyperkalemia, potassium 6.9 On the mechanical ventilator postoperatively. Hypercapnic respiratory failure Shock liver Diabetes mellitus type 2, insulin-dependent Hyperlipidemia History of previous right total knee replacement on 07/23/2022 Morbid obesity Obstructive sleep apnea History of previous bilateral mastectomy for suspected breast cancer Anxiety Ex-smoker Plan: Patient's medications, labs, chest x-ray reviewed The patient will remain on the mechanical ventilator overnight Increase the respiratory rate 20 and tidal volume to 400 Titrate FiO2 Propofol for sedation Norepinephrine for refractory hypotension Giv an additional 1 L normal saline bolus Left radial arterial line was inserted Repeat ABG in the morning Repeat chest x-ray in the morning 10 units of regular insulin, 1 amp of D50 W, 1 g calcium gluconate, and albuterol for hyperkalemia. Repeat potassium level and consult nephrology Protonix for GI prophylaxis Insert OG tube for gastric decompression DVT prophylaxis per surgical services Prophylactic antibiotics Patient's prognosis is currently guarded, and we'll continue to monitor the patient in the intensive care unit I have personally seen and examined the patient, performed the documentation and the assessment and plan as written. Number of minutes spent on the visit:20 Time with Patient: Greater than 30
[2023-03-29] MEDS: NOREPINEPHRINE 4 MG in SODIUM CHLORIDE 0.9% 250 ML IV SCH ×4 (01:52→09:53)
[2023-03-29 02:47] LABS: Glucose,Whole Blood 333 mg/dL (70-110)
[2023-03-29] MEDS ORDERED: propofoL 100 ML IV ONE (02:58)
[2023-03-29] MEDS: HYDROmorphone 0.5 MG/0.5 ML SYRINGE IVP PRN ×2 (03:40→22:54)
[2023-03-29] MEDS: INSULIN ASPART (NovoLOG) 100 UNIT/ML VIAL SQ SCH (03:44)
[2023-03-29] MEDS: VASOPRESSIN 20 UNIT in SODIUM CHLORIDE 0.9% 50 ML IV SCH ×2 (04:02→16:06)
[2023-03-29] MEDS ORDERED: ALBUTEROL NEB (CONC) 2.5 MG/0.5 ML INHALATION ONE (04:05)
[2023-03-29 04:18] LABS: Basophils # (A) 0.1 k/uL (0-0.2); Basophils % (A) 0 %; Eosinophils # (A) 0.1 k/uL (0-0.7); Eosinophils % (A) 0 %; HCT 27.5 % (34.0-46.0); HGB 8.7 gm/dL (11.4-16.0); Hypochromasia Slight; Lymphocytes # (A) 1.5 k/uL (1.0-4.8); Lymphocytes % (A) 5 %; MCH 29.5 pg (25.0-35.0); MCHC 31.7 g/dL (31.0-37.0); MCV 93.2 fL (80.0-100.0); Mean Platelet Volume 8.1; Monocytes # (A) 2.8 k/uL (0-1.0); Monocytes % (A) 9 %; Neutrophils # (A) 26.7 k/uL (1.3-7.7); Neutrophils % (A) 85 %; Platelet Count 391 k/uL (150-450); RBC 2.95 m/uL (3.80-5.40); RDW 15.4 % (11.5-15.5); WBC 31.6 k/uL (3.8-10.6)
[2023-03-29 06:11] LABS: ABG Base Excess -10.4 mmol/L; ABG HCO3 18 mmol/L (21-25); ABG Oxygen Saturation 99.5 % (94-97); ABG PCO2 50 mmHg (35-45); ABG PO2 168 mmHg (83-108); ABG TCO2 20 mmol/L (19-24); Allen Test Performed? Yes
[2023-03-29 06:22] LABS: ABG PH 7.17 (7.35-7.45)
[2023-03-29] MEDS: SODIUM CHLORIDE 0.9% 1,000 ML IV SCH (06:26)
[2023-03-29] MEDS ORDERED: CISATRACURIUM 2 MG/ML 5 ML VIAL IV ONE (06:35)
[2023-03-29 06:38] LABS: Anisocytosis (M) Present; Poikilocytosis (M) Present
[2023-03-29 06:39] LABS: Polychromasia Present
--- NOTE | 2023-03-29 06:39 | P.PCN ---
Date of Procedure: 03/29/23 Preoperative Diagnosis: Hypotension and shock Postoperative Diagnosis: Hypotension and shock Procedure(s) Performed: Insertion of a right radial arterial line Indications for Procedure: Continuous blood pressure monitoring and frequent blood draws Description of Procedure: Informed consent was obtained, and a procedural timeout was performed. The patient was placed in supine position. The right radial region was prepared in a sterile fashion, and a sterile drape was applied. The right radial artery was palpated, easily cannulated, and a guidewire was placed. A Cook catheter was inserted over the guidewire, and the guidewire was removed. There was good arterial blood flow, good arterial waveform, and no complications. The line was secured with using a 3-0 silk suture.
[2023-03-29 07:11] LABS: Glucose,Whole Blood 441 mg/dL (70-110)
[2023-03-29 07:14] LABS: Glucose,Whole Blood 439 mg/dL (70-110)
[2023-03-29 07:17] LABS: African American GFR (CKD) 30 (>60 ml/min/1.73 sqM); Anion Gap 14 mmol/L; Blood Urea Nitrogen 40 mg/dL (7-17); Calcium 7.9 mg/dL (8.4-10.2); Carbon Dioxide 19 mmol/L (22-30); Chloride 104 mmol/L (98-107); Glucose 372 mg/dL (74-99); Non-African American GFR(CKD) 26 (>60 ml/min/1.73 sqM); Potassium 5.1 mmol/L (3.5-5.1); Sodium 137 mmol/L (137-145)
[2023-03-29] MEDS: CISATRACURIUM 200 MG in SODIUM CHLORIDE 0.9% 180 ML IV SCH (07:45)
[2023-03-29] MEDS: LACTATED RINGERS 1,000 ML IV SCH (08:19)
[2023-03-29 08:21] LABS: Amorphous Sediment,Urine Moderate /hpf; Appearance,Urine Cloudy (Clear); Bacteria,Urine Rare /hpf; Bilirubin,Urine Negative (Negative); Blood,Urine Moderate (Negative); Color,Urine Dark Yellow; Glucose,Urine (UA) Negative (Negative); Ketones,Urine Negative (Negative); Leukocyte Esterase,Urine Large (Negative); Mucus,Urine Rare /hpf; Nitrite,Urine Negative (Negative); Protein,Urine 1+ (Negative); RBC,Urine 6 /hpf (0-5); Squamous Epithelial Cell,Urine 1 /hpf (0-4); WBC,Urine 23 /hpf (0-5)
[2023-03-29] MEDS ORDERED: DEXTROSE 50% SYRINGE 50 ML IVP PRN ×2 (08:29)
--- NOTE | 2023-03-29 08:34 | XR ---
EXAMINATION TYPE: XR chest 1V portable DATE OF EXAM: 03/29/2023 COMPARISON: 03/29/2023 HISTORY: Tube placement TECHNIQUE: Single frontal view of the chest is obtained. FINDINGS: ET tube 2 cm above the radha. There is left-sided consolidation and small effusion. No pn eumothorax. Heart is enlarged and there is a diffuse interstitial pattern. IMPRESSION: 1. Left-sided infiltrates and small effusions stable.
--- NOTE | 2023-03-29 09:47 | XR ---
EXAMINATION TYPE: XR chest 1V portable DATE OF EXAM: 03/29/2023 Comparison: 03/29/2023 Clinical History: 72-year-old female left subclavian line placement Findings: ET tube tip satisfactory. Left subclavian CVC tip at the upper right atrium. Heart upper limits of no rmal in size. Ongoing trace left pleural effusion with patchy retrocardiac and left basilar opacity. Impression: 1. Left CVC tip in the upper right atrium. No appreciable pneumothorax. 2. Ongoing small left pleural effusion with adjacent left basilar atelectasis and/or consolidation.
--- NOTE | 2023-03-29 09:51 | US ---
EXAMINATION TYPE: US venous doppler duplex LE DATE OF EXAM: 03/29/2023 9:48 AM COMPARISON: NONE CLINICAL INDICATION: Female, 72 years old with history of possible blood clots; Extremely limited bod y habitus patient unable to move. Right leg has drainage tube with tape worked around area. Exam appe ars somewhat nondiagnostic. SIDE PERFORMED: Bilateral TECHNIQUE: The lower extremity deep venous system is examined utilizing real time linear array sonog fátima with graded compression, doppler sonography and color-flow sonography. VESSELS IMAGED: Common Femoral Vein Deep Femoral Vein Greater Saphenous Vein * Femoral Vein Popliteal Vein Right Leg: Limited negative for DVT for vessels imaged. Unable to visualize Popliteal Vein. Left Leg: Limited unable to visualized Femoral Vein due to body habitus. IMPRESSION: On the right, unable to adequately visualize the popliteal vein. On the left, unable to adequately visualize the femoral vein. Exam fairly nondiagnostic in these regions. However, no DVT se en elsewhere within the bilateral lower extremities.
[2023-03-29 09:57] LABS: Basophils % (A) 0 %; Eosinophils % (A) 0 %; HCT 21.3 % (34.0-46.0); Hypochromasia Slight; Lymphocytes # (A) 1.1 k/uL (1.0-4.8); Lymphocytes % (A) 5 %; MCH 29.4 pg (25.0-35.0); MCHC 31.4 g/dL (31.0-37.0); MCV 93.7 fL (80.0-100.0); Mean Platelet Volume 8.7; Monocytes # (A) 1.3 k/uL (0-1.0); Monocytes % (A) 6 %; Neutrophils % (A) 87 %; Platelet Count 300 k/uL (150-450); RBC 2.28 m/uL (3.80-5.40); RDW 15.7 % (11.5-15.5); WBC 20.6 k/uL (3.8-10.6)
[2023-03-29 10:01] LABS: Glucose,Whole Blood 434 mg/dL (70-110)
[2023-03-29] MEDS: INSULIN REGULAR 100 UNIT in SODIUM CHLORIDE 0.9% 100 ML IV SCH ×2 (10:07→17:30)
[2023-03-29 10:11] LABS: INR 1.2 (<1.2); Partial Thromboplastin Time 25.7 sec (22.0-30.0); Prothrombin Time 12.5 sec (9.0-12.0)
[2023-03-29] MEDS: PSYLLIUM HUSK 100% 6 GM PACKET PO SCH ×2 (10:19→20:56)
[2023-03-29 10:20] LABS: HGB 6.7 gm/dL (11.4-16.0)
[2023-03-29] MEDS: NOREPINEPHRINE 32 MG in SODIUM CHLORIDE 0.9% 218 ML IV SCH (10:21)
[2023-03-29 10:34] LABS: ABG HCO3 20 mmol/L (21-25); ABG Oxygen Saturation 97.4 % (94-97); ABG PCO2 62 mmHg (35-45); ABG PO2 111 mmHg (83-108); ABG TCO2 22 mmol/L (19-24); Allen Test Performed? Yes
[2023-03-29 10:36] LABS: ABG PH 7.13 (7.35-7.45)
[2023-03-29] MEDS ORDERED: SODIUM BICARB 8.4% 50 ML SYR (1 MEQ/ML) IV STA ×3 (10:41→15:22)
--- NOTE | 2023-03-29 11:00 | P.NPCON ---
History of Present Illness - Reason for Consult acute renal failure, hyperkalemia - History of Present Illness Reason for consultation: Acute kidney injury and hyperkalemia History of present illness: Patient is a 72-year-old female seen in renal consultation for acute kidney injury on chronic kidney disease. Patient has chronic kidney disease stage III with baseline creatinine near 1.1-1.2. She also has history of hypercalcemia and is maintained on Sensipar. Creatinine on admission was 1.29 and is up to 1.91 today. Patient came to the hospital due to knee pain. Patient was getting her hair done and fell at the salon. CAT scan showed distal metadiaphyseal femur adjacent to knee prosthesis. Patient underwent knee revision on 03/28/2023 but became hypotensive intraoperatively and required multiple fluid boluses as well as albumin and Woody-Synephrine infusion. Hemoglobin was low and she also received 2 units of blood. She was initially transferred to intensive care unit. Patient is currently intubated. She is on Levophed and vasopressin. Urine output is low about 20 mL an hour. She is receiving LR at 100 mL an hour. Potassium was as high as 6.9 at midnight which was medically treated and was down to 5.1 this morning. Hemoglobin today is 6.7 and she'll be receiving more blood. Patient does have history of diabetes. I don't see any NSAIDs and her home medication list. Patient's blood sugars have been high and she is in the process of being started on insulin drip Vital signs - tachycardic. On vasopressor support. General: Resting in bed. HEENT: Intubated. LUNGS: Scattered rhonchi. HEART: Tachycardic. ABDOMEN: Soft, no distention. EXTREMITITES: No edema. Right knee dressing and drain noted. Past Medical History Past Medical History: Diabetes Mellitus, Hypertension, Osteoarthritis (OA), Pneumonia, Sleep Apnea/CPAP/BIPAP Additional Past Medical History / Comment(s): covid 10/14/20-10/21/20, hype rcalcemia, bilateral mastectomy but told after it was not cancer, colitis, varicose veins, "irregular urination" History of Any Multi-Drug Resistant Organisms: None Reported Past Surgical History: Breast Surgery, Hysterectomy, Joint Replacement, To nsillectomy Additional Past Surgical History / Comment(s): Bilateral mastectomies, total L and R knee arthroplasty, colonoscopies, bilateral cataract removals/lens implants. right knee replacement 07/23/22 Past Anesthesia/Blood Transfusion Reactions: Motion Sickness Past Psychological History: Anxiety, Depression Additional Psychological History / Comment(s): . Smoking Status: Former smoker Past Alcohol Use History: None Reported Additional Past Alcohol Use History / Comment(s): Pt atarted smoking in 1965 and quit in 2005. Past Drug Use History: None Reported - Past Family History Sister(s) Family Medical History: Myocardial Infarction ([place]) Additional Family Medical History / Comment(s): TWO SISTERS HAD AN [place] Father Family Medical History: Cancer Additional Family Medical History / Comment(s): Father of stomach cancer. Mother Family Medical History: Cancer Additional Family Medical History / Comment(s): . Medications and Allergies Home Medications Medication Instructions Recorded Confirmed Type FLUoxetine HCL [PROzac] 40 mg PO DAILY 05/03/14 03/26/23 History Fenofibrate Nanocrystallized 145 mg PO DAILY 05/03/14 03/26/23 History [Tricor] OLANZapine [ZyPREXA] 5 mg PO HS 05/03/14 03/26/23 History clonazePAM [KlonoPIN] 0.5 mg PO TID 05/03/14 03/26/23 History allopurinoL [Zyloprim] 100 mg PO DAILY 10/13/20 03/26/23 History Metoprolol Succinate (ER) [Toprol 25 mg PO DAILY 12/10/20 03/26/23 History XL] Atorvastatin [Lipitor] 10 mg PO DAILY 06/11/22 03/26/23 History Multivit with Calcium,Iron,Min 1 tab PO DAILY 06/11/22 03/26/23 History [Women's Multivitamin] Pioglitazone [Actos] 15 mg PO DAILY 06/11/22 03/26/23 History Cinacalcet [Sensipar] 30 mg PO MOTH 03/26/23 03/26/23 History Ferrous Sulfate [Feosol] 325 mg PO DAILY 03/26/23 03/26/23 History Glimepiride [Amaryl] 2 mg PO DAILY 03/26/23 03/26/23 History Insulin Glargine,Hum.rec.anlog 56 units SQ HS 03/26/23 03/26/23 History [Lantus Solostar Pen] Magnesium Oxide [Mag-Ox] 400 mg PO DAILY 03/26/23 03/26/23 History Mesalamine [Mesalamine Dr] 800 mg PO TID 03/26/23 03/26/23 History Allergies Allergy/AdvReac Type Severity Reaction Status Date / Time No Known Allergies Allergy Verified 03/28/23 17:41 Physical Exam Vitals: Vital Signs Temp Pulse Pulse Resp BP BP Pulse Ox 03/29/23 08:04 106 H 03/29/23 07:00 102 H 17 131/47 93 L 03/29/23 06:45 101 H 20 131/50 92 L 03/29/23 06:35 03/29/23 06:30 102 H 20 133/60 92 L 03/29/23 06:21 03/29/23 06:15 103 H 19 99 03/29/23 06:00 107 H 16 132/45 99 03/29/23 05:45 107 H 16 141/53 99 03/29/23 05:30 103 H 14 141/51 99 03/29/23 05:15 102 H 15 143/57 99 03/29/23 05:00 105 H 18 141/52 100 03/29/23 04:45 101 H 15 145/55 95 03/29/23 04:30 102 H 16 145/55 95 03/29/23 04:15 101 H 15 95 03/29/23 04:13 101 H 03/29/23 04:00 97.9 F 101 H 14 95 03/29/23 03:45 98 16 03/29/23 03:30 96 13 03/29/23 03:15 93 14 03/29/23 03:00 94 14 100 03/29/23 02:45 110 H 20 03/29/23 02:30 107 H 16 95 03/29/23 02:15 107 H 20 03/29/23 02:00 89 15 100 03/29/23 01:45 88 13 96 03/29/23 01:30 88 18 100 03/29/23 01:15 92 13 03/29/23 01:00 96.9 F L 95 15 96 03/29/23 00:45 95 13 03/29/23 00:30 104 H 21 97 03/29/23 00:15 101 H 28 H 97 03/29/23 00:12 101 H 03/29/23 00:02 103 H 03/29/23 00:00 103 H 20 03/28/23 23:45 101 H 15 96 03/28/23 23:30 96 19 97 03/28/23 23:15 97.6 F 91 20 79/34 97 03/28/23 23:12 87 21 97 03/28/23 16:59 88 18 143/94 94 L 03/28/23 16:51 98.7 F 88 18 159/64 93 L 03/28/23 11:21 99.1 F 87 16 160/72 93 L FiO2 03/29/23 08:04 85 03/29/23 07:00 03/29/23 06:45 03/29/23 06:35 85 03/29/23 06:30 03/29/23 06:21 85 03/29/23 06:15 03/29/23 06:00 03/29/23 05:45 03/29/23 05:30 03/29/23 05:15 03/29/23 05:00 03/29/23 04:45 03/29/23 04:30 03/29/23 04:15 100 03/29/23 04:13 03/29/23 04:00 100 03/29/23 03:45 03/29/23 03:30 03/29/23 03:15 03/29/23 03:00 03/29/23 02:45 03/29/23 02:30 03/29/23 02:15 03/29/23 02:00 03/29/23 01:45 03/29/23 01:30 03/29/23 01:15 03/29/23 01:00 03/29/23 00:45 03/29/23 00:30 03/29/23 00:15 03/29/23 00:12 03/29/23 00:02 03/29/23 00:00 100 03/28/23 23:45 03/28/23 23:30 03/28/23 23:15 100 03/28/23 23:12 100 03/28/23 16:59 03/28/23 16:51 03/28/23 11:21 Intake and Output 03/28/23 03/29/23 03/29/23 22:59 06:59 14:59 Intake Total 3447 2428.243 569.194 Output Total 1460 190 30 Balance 1987 2238.243 539.194 Intake: IV 2850 1800 100 Calcium Gluconate in NaCl 100 1 gm In Saline 1 100ml. bag @ 100 mls/hr IVPB ONCE ONE Rx#:[id number] Lactated Ringers 1,000 ml 700 100 @ 100 mls/hr IV .Q10H [facility] Rx#:[id number] Sodium Chloride 0.9% 1, 1000 000 ml @ 999 mls/hr IV . Q1H1M ONE Rx#:[id number] Intake, IV Titration 628.243 469.194 Amount Cisatracurium 200 mg In 31.693 Sodium Chloride 0.9% 180 ml @ 1 MCG/KG/MIN 6.94 mls/hr IV .Q24H [facility] Rx#: [id number] Norepinephrine 4 mg In 541.493 287.713 Sodium Chloride 0.9% 250 ml @ 0.03 MCG/KG/MIN 13. 221 mls/hr IV .E44O60M [facility] Rx#:[id number] propofoL 1,000 mg In 86.75 149.788 Empty Bag 1 bag @ 15 MCG/ KG/MIN 10.41 mls/hr IV . Q9H37M [facility] Rx#:[id number] Blood Product 597 Rc As-1 Unit 310 [id number] Rc Pheresis As-3 Unit 287 [id number] Output: Drainage 40 Right Knee 40 Urine 960 150 30 Estimated Blood Loss 500 Other: Voiding Method Indwelling Catheter ABP, PAP, CO, CI - Last 8 Hours Arterial Blood Pressure 139/50 Arterial Blood Pressure 146/51 Arterial Blood Pressure 161/54 Arterial Blood Pressure 169/56 Arterial Blood Pressure 69/67 Arterial Blood Pressure 80/74 Arterial Blood Pressure 77/71 Arterial Blood Pressure 81/76 Arterial Blood Pressure 57/57 Arterial Blood Pressure 76/63 Arterial Blood Pressure 94/66 Arterial Blood Pressure 130/73 Arterial Blood Pressure 104/86 Results - Lab Results Most recent lab results ABG pH 7.13 (7.35-7.45) L* 03/29/23 10:30 ABG pCO2 62 mmHg (35-45) H 03/29/23 10:30 ABG pO2 111 mmHg (83-108) H 03/29/23 10:30 ABG HCO3 20 mmol/L (21-25) L 05/16/23 10:30 ABG O2 Saturation 97.4 % (94-97) H 03/29/23 10:30 Calcium 7.9 mg/dL (8.4-10.2) L 03/29/23 06:13 Magnesium 2.2 mg/dL (1.6-2.3) 03/29/23 00:13 03/29/23 09:45 03/29/23 06:13 Assessment and Plan Plan: Assessment: 1. Acute kidney injury secondary to hemodynamic ATN/shock. Creatinine 1.29 on admission and is 1.91 today. Urine output about 20 mL an hour. 2. Chronic kidney disease stage III with baseline creatinine 1-1.2 secondary to nephrosclerosis/diabetic kidney disease. 3. History of hypercalcemia maintained on Sensipar. Calcium 7.9 today. 4. Acute blood loss anemia scheduled to receive blood transfusion today. 5. Hyperkalemia secondary to acute kidney injury, hyperglycemia, acidosis and acute blood loss. Improved with medical management. 6. Status post knee revision 03/28/2023. 7. Diabetes mellitus. Plan: Start bicarb drip. Stop LR. Wean vasopressors as able. Blood sugar control. She will be started on insulin drip. Repeat BMP at 4 PM. If no improvement in urine output, will give 80 mg IV Lasix once. Continue to monitor renal function and urine output. Avoid nephrotoxins. Hold Sensipar for now. Check renal uls. F/u ECHO. Thank you for the consultation. I will continue to follow the patient with you during her hospital stay.
[2023-03-29] MEDS: HEPARIN SOD,PORK IN 0.45% NACL 25,000 UNIT in 0.45% NACL 1 250ML.BAG IV SCH (11:07)
--- NOTE | 2023-03-29 11:09 | P.OP ---
Date of Procedure: 03/28/23 Preoperative Diagnosis: 1. Comminuted right supracondylar fracture 2. Morbid obesity with BMI of 47 3. Type 2 diabetes Postoperative Diagnosis: 1. Right comminuted supracondylar periprosthetic distal femur fracture not amenable to open reduction internal fixation 2. BMI 47 3. Diabetes Procedure(s) Performed: 1. Right revision total knee replacement with distal femoral replacing hinge for periprosthetic distal femur fracture 2. Negative pressure wound therapy right knee incisional wound VAC (eg, vacuum- assisted drainage collection) utilizing durable medical equipment (DME), including topical instructions for ongoing care, per section, total wound surface area less than or equal to 50 cm [id number] Implants: 1. Heber GMRS Dstail femoral component STD, RIGHT 65mm with 11 x 127mm stem and 30-mm extension 2. [place] SM-1 baseplate with 10x80 mm stem 3. [place] 10-mm poly Anesthesia: GETA, regional Surgeon: Neeraj Stack Supervisor Backfilling #1: Aline Avendaño Estimated Blood Loss (ml): 600 Pathology: none sent Condition: stable Disposition: PACU Indications for Procedure: The patient very pleasant 71-year-old female with a medical history significant for having a BMI of 47 and type 2 diabetes who is admitted under my care with a right highly comminuted periprosthetic distal femur fracture. Briefly the patient underwent an uncomplicated right total knee replacement about a year ago and did very well. She was having no pain and getting around without difficulty. On Tuesday the patient was getting up to get a haircut when she slipped and fell landing on her right leg. She had immediate pain, deformity and an inability to ambulate. She is brought to the emergency department where x-rays showed a highly comminuted periprosthetic distal femur fracture. The patient was admitted under my care and cleared for surgery by internal medicine. I met with the patient and her several times preoperatively to review her imaging and discuss treatment options. We discussed both an attempted open reduction internal fixation with a lateral periarticular distal femoral locking plate versus revision the distal femoral replacing hinge. The patient's x-rays and computed tomography scan showed significant comminution with extension into the lateral condyle almost down to the implant. Based on the level of comminution, the patient's body habitus, poor bone stock, and limited distal bone for fixation my recommendation was a revision the distal femoral replacing hinge. I also discussed the case with my mentor from fellowship who reviewed the imaging and also recommended a distal femoral replacing hinge. A long discussion about the potential risks and complications of the surgery. The patient and her understand that she is at a high risk for having a complication given the severity of her injury, her elevated BMI, and her medical comorbidities. Risks discussed included but certainly not limited to risks from anesthesia, superficial infection, deep infection, periprosthetic joint infection, delayed wound healing, damage to local blood vessels or nerves, intraoperative fracture, postoperative fracture, stiffness, instability, aseptic loosening, patellar maltracking, malrotation of the implants, need for revision surgery, an inability to regain preinjury level of function, generalized to satisfaction with her surgical outcome, DVT, PE, acute coronary event, stroke, pneumonia, failure to thrive, and possibly loss of life or limb. Again I spent a great deal of time on 2 separate occasions discussing the severity of her injury, her elevated risk of having a complication and both surgical options at length. With the patient and her agreed to go forward with surgery acknowledging her elevated risk of having a complication. Operative Findings: There was a highly comminuted distal femur fracture with at least 10 free bony fragments and the distal femoral metaphysis. The fracture extended down into the lateral condyle of the femur and into the intercondylar notch. There is less than 1 cm of intact bone on the lateral aspect of the femoral implant. The fracture appeared non-reconstructable so decision was made to proceed with a distal femoral replacing hinge. Description of Procedure: The patient was identified in preoperative holding and the correct right leg was marked my initials. I reviewed the consent form with the patient . All their questions were answered. A block was given by anesthesia. The patient was then brought back to the operating room. She was positioned on the OR table where a general anesthetic, preoperative antibiotics, and takes a were given. A tourniquet was applied proximal aspect of the right thigh. The left leg was secured to the table with foam and tape. A Morales catheter was placed. A presurgical scrub using a chlorhexidine scrub brush and sterile towel was performed. The right leg was then prepped and draped in the standard sterile fashion. Prior to starting surgery timeout was performed identifying the correct patient, operative extremity, and procedure. The patient's leg was then elevated, exsanguinated with an Esmarch bandage, and the tourniquet was inflated to 300 mmHg. I began by making an anterior incision over prior scar extending the incision proximally and distally. Dissection was carried down to subcutaneous tissue with the fascia was identified proximally and distally. Subfascial flaps were elevated. A medial parapatellar arthrotomy was then performed. Upon entering the knee joint there was a large hemarthrosis which was evacuated. The fracture site was immediately visualized. There were significant comminution and the fracture not to be reconstructable with open reduction internal fixation. The decision was made to proceed with a distal femoral replacing hinge. The collateral ligaments were carefully released off of the distal femoral implant followed by the posterior tissues. A ribbon retractor was placed proximally under the femoral shaft and a cut was made just proximal to the fracture using a sagittal saw. Attention was then turned to the tibia. The polyliner was carefully removed. Using a sagittal and reciprocating saw the interface between the tibial baseplate and cement was carefully debonded. A bone tamp and a mallet was used to carefully explant the tibial baseplate and stem. The implant was removed minimal bone loss. I then secured to a removed remaining cement within maestro bur. Distally the cement pedestal and restrictor were identified and the canal was opened. Using cement backscratchers majority of the cement from the tibia was removed. I then reamed for the tibial stem and sized the tibia. The tibial baseplate trial was then gently impacted into place trying to match the patient's rotation. Attention was then turned to the tibia. A cable was placed around the distal femur and I sequentially reamed. A trial distal femoral replacing implant with a 30 mm extension was placed followed by a 10 mm liner. Fluoroscopy was used to verify the perforations of the tibia or femur had not occurred of the implants were appropriately sized and positioned. All trial implants were then removed. The wound was thoroughly irrigated using chlorhexidine and sterile saline. Restrictors were placed in the tibia and femur. I then implanted the implants in a staged fashion starting with the tibia. 3 bags of cement without antibiotics was pressurized into the tibia and the tibial implant was gently tapped into place and held until the cement hardened. 3 bags of cement without antibiotics was pressurized into the femur and the distal femoral implant was inserted attempting to match the patient's tonto apache rotation. Once the cement had hardened the final modular components of the distal femoral hinge were implanted. The knee was taken through range of motion which appeared acceptable. The tourniquet was let down. All bleeders were controlled with electrocautery and aqua mantis. The wound was then soaked for 3 minutes and a dilute Betadine rinse. The wound was then irrigated with pulsatile lavage. The wound was then soaked with Irricept. The wound was then thoroughly irrigated using 3 L of sterile saline. A deep drain was placed. 2 g of vancomycin powder was placed at the level of the joint. The capsule was closed with interrupted Vicryl and a running barbed stitch. 2 g of vancomycin powder was placed in the subcutaneous tissue was closed in layers. The skin incision was closed with a subcuticular Monocryl stitch followed by 3-0 nylon vertical mattress sutures to reinforce the incision. An incisional wound VAC was applied. A drain sponge was applied. The drapes were taken down and the leg was dressed with a web roll and Saravanan wrap. A knee immobilizer was placed. The patient's right foot was well perfused. Based on labile blood pressures and the patient's overall appearance anesthesia recommended the patient be transferred to the ICU. The patient was taken directly from the operating room to the ICU when she was stable. Aline Avendaño PA-C was required as a skilled engineer assistant for patient positioning, exposure, retraction, removal of implants, placement of new revision implants, closure of wound, and application of dressing Plan: The patient is transferred to the ICU. I appreciate the ICU's assistance in perioperative medical management. In regards to her right leg she can weight-bear as tolerated in knee immobilizer. Incisional wound VAC should stay on at all times. We will leave her surgical dressing in place for 48 hours. She will receive 2 doses of postoperative Ancef and will then be started on low- dose oral suppressive antibiotics. I had a long discussion with the patient's and family friend who is a nurse following surgery. They understand the complexity of the surgery and the patient's guarded prognosis.
--- NOTE | 2023-03-29 11:11 | P.PN ---
Subjective Progress Note Date: 03/29/23 This patient is a 72- year old female who is status-post right revision distal femoral replacing hinge for comminuted periprosthetic distal femur fracture on 03/28/23. Today is post-operative day #1. Patient is examined bedside in the ICU with Dr. Stack. Patient remains intubated. Patient has received 2 units of PRBCs post- op, hemoglobin has resulted as 6.7 this morning, therefore an additional unit of PRBCs has been ordered. Arterial line has been placed. Nephrology has been consulted due to hyperkalemia and acute kidney injury. Doppler ultrasound of the bilateral lower extremities has been obtained this morning, which showed no acute DVT although was relatively non-diagnostic in some areas due to body habitus. Heparin drip has been initiated per Dr. Babcock. Objective - Vital Signs Vital signs: Vital Signs Temp 97.9 F 03/29/23 04:00 Pulse 106 H 03/29/23 08:04 Resp 17 03/29/23 07:00 BP 131/47 03/29/23 07:00 Pulse Ox 93 L 03/29/23 07:00 FiO2 85 03/29/23 08:04 Intake & Output 03/28/23 03/29/23 03/29/23 18:59 06:59 18:59 Intake Total 1050 4825.243 569.194 Output Total 800 850 30 Balance 250 3975.243 539.194 Intake: IV 1050 3600 100 Calcium Gluconate in NaCl 100 1 gm In Saline 1 100ml. bag @ 100 mls/hr IVPB ONCE ONE Rx#:[id number] Lactated Ringers 1,000 ml 700 100 @ 100 mls/hr IV .Q10H [facility] Rx#:[id number] Sodium Chloride 0.9% 1, 1000 000 ml @ 999 mls/hr IV . Q1H1M ONE Rx#:[id number] Intake, IV Titration 628.243 469.194 Amount Cisatracurium 200 mg In 31.693 Sodium Chloride 0.9% 180 ml @ 1 MCG/KG/MIN 6.94 mls/hr IV .Q24H [facility]ITA Rx#: [id number] Norepinephrine 4 mg In 541.493 287.713 Sodium Chloride 0.9% 250 ml @ 0.03 MCG/KG/MIN 13. 221 mls/hr IV .Q60F06T [facility] Rx#:[id number] propofoL 1,000 mg In 86.75 149.788 Empty Bag 1 bag @ 15 MCG/ KG/MIN 10.41 mls/hr IV . Q9H37M [facility] Rx#:[id number] Blood Product 597 Rc As-1 Unit 310 [id number] Rc Pheresis As-3 Unit 287 [id number] Output: Drainage 40 Right Knee 40 Urine 800 310 30 Estimated Blood Loss 500 Other: Voiding Method External Catheter Indwelling Catheter ABP, PAP, CO, CI - Last Documented Arterial Blood Pressure 139/50 - Exam On examination, patient is intubated. On inspection of the right knee, there is Prevena wound vac in place that has a good seal at this time. Hemovac drain is in place. There is moderate swelling of the knee. The right lower extremity is warm and well perfused. - Labs CBC & Chem 7: 03/29/23 09:45 03/29/23 06:13 Labs: Abnormal Lab Results - Last 24 Hours (Table) 03/26/23 03/28/23 03/28/23 Range/Units 10:20 12:02 17:04 WBC (3.8-10.6) k/uL RBC (3.80-5.40) m/uL Hgb (11.4-16.0) gm/dL Hct (34.0-46.0) % RDW (11.5-15.5) % Neutrophils # (1.3-7.7) k/uL Monocytes # (0-1.0) k/uL PT (9.0-12.0) sec INR (<1.2) ABG pH (7.35-7.45) ABG pCO2 (35-45) mmHg ABG pO2 (83-108) mmHg ABG HCO3 (21-25) mmol/L ABG O2 Saturation (94-97) % ABG Lactic Acid (0.5-1.6) mmol/L Sodium (137-145) mmol/L Potassium (3.5-5.1) mmol/L Carbon Dioxide (22-30) mmol/L BUN (7-17) mg/dL Creatinine (0.52-1.04) mg/dL Glucose (74-99) mg/dL POC Glucose (mg/dL) 118 H 122 H (70-110) mg/dL Plasma Lactic Acid Syd (0.7-2.0) mmol/L Calcium (8.4-10.2) mg/dL Total Bilirubin (0.2-1.3) mg/dL AST (14-36) U/L ALT (4-34) U/L Troponin I (0.000-0.034) ng/mL Total Protein (6.3-8.2) g/dL Albumin (3.5-5.0) g/dL Urine Appearance (Clear) Urine Protein (Negative) Urine Blood (Negative) Ur Leukocyte Esterase (Negative) Urine RBC (0-5) /hpf Urine WBC (0-5) /hpf Amorphous Sediment (None) /hpf Urine Bacteria (None) /hpf Urine Mucus (None) /hpf Crossmatch See Detail 03/28/23 03/28/23 03/29/23 Range/Units 23:14 23:52 00:05 WBC (3.8-10.6) k/uL RBC (3.80-5.40) m/uL Hgb (11.4-16.0) gm/dL Hct (34.0-46.0) % RDW (11.5-15.5) % Neutrophils # (1.3-7.7) k/uL Monocytes # (0-1.0) k/uL PT (9.0-12.0) sec INR (<1.2) ABG pH 7.07 L* (7.35-7.45) ABG pCO2 75 H* (35-45) mmHg ABG pO2 (83-108) mmHg ABG HCO3 (21-25) mmol/L ABG O2 Saturation (94-97) % ABG Lactic Acid 4.2 H* (0.5-1.6) mmol/L Sodium (137-145) mmol/L Potassium (3.5-5.1) mmol/L Carbon Dioxide (22-30) mmol/L BUN (7-17) mg/dL Creatinine (0.52-1.04) mg/dL Glucose (74-99) mg/dL POC Glucose (mg/dL) 282 H (70-110) mg/dL Plasma Lactic Acid Syd (0.7-2.0) mmol/L Calcium (8.4-10.2) mg/dL Total Bilirubin (0.2-1.3) mg/dL AST (14-36) U/L ALT (4-34) U/L Troponin I (0.000-0.034) ng/mL Total Protein (6.3-8.2) g/dL Albumin (3.5-5.0) g/dL Urine Appearance (Clear) Urine Protein (Negative) Urine Blood (Negative) Ur Leukocyte Esterase (Negative) Urine RBC (0-5) /hpf Urine WBC (0-5) /hpf Amorphous Sediment (None) /hpf Urine Bacteria (None) /hpf Urine Mucus (None) /hpf Crossmatch 03/29/23 03/29/23 03/29/23 Range/Units 00:13 00:13 00:13 WBC 25.0 H (3.8-10.6) k/uL RBC 3.10 L (3.80-5.40) m/uL Hgb 9.1 L (11.4-16.0) gm/dL Hct 28.7 L (34.0-46.0) % RDW (11.5-15.5) % Neutrophils # 21.0 H (1.3-7.7) k/uL Monocytes # 1.7 H (0-1.0) k/uL PT (9.0-12.0) sec INR (<1.2) ABG pH (7.35-7.45) ABG pCO2 (35-45) mmHg ABG pO2 (83-108) mmHg ABG HCO3 (21-25) mmol/L ABG O2 Saturation (94-97) % ABG Lactic Acid (0.5-1.6) mmol/L Sodium 136 L (137-145) mmol/L Potassium 6.9 H* (3.5-5.1) mmol/L Carbon Dioxide (22-30) mmol/L BUN 34 H (7-17) mg/dL Creatinine 1.74 H (0.52-1.04) mg/dL Glucose 232 H (74-99) mg/dL POC Glucose (mg/dL) (70-110) mg/dL Plasma Lactic Acid Syd (0.7-2.0) mmol/L Calcium 8.0 L (8.4-10.2) mg/dL Total Bilirubin 2.2 H (0.2-1.3) mg/dL AST 1044 H (14-36) U/L ALT 154 H (4-34) U/L Troponin I 0.064 H* (0.000-0.034) ng/mL Total Protein 5.5 L (6.3-8.2) g/dL Albumin 3.4 L (3.5-5.0) g/dL Urine Appearance (Clear) Urine Protein (Negative) Urine Blood (Negative) Ur Leukocyte Esterase (Negative) Urine RBC (0-5) /hpf Urine WBC (0-5) /hpf Amorphous Sediment (None) /hpf Urine Bacteria (None) /hpf Urine Mucus (None) /hpf Crossmatch 03/29/23 03/29/23 03/29/23 Range/Units 01:30 02:46 04:06 WBC 31.6 H (3.8-10.6) k/uL RBC 2.95 L (3.80-5.40) m/uL Hgb 8.7 L (11.4-16.0) gm/dL Hct 27.5 L (34.0-46.0) % RDW (11.5-15.5) % Neutrophils # 26.7 H (1.3-7.7) k/uL Monocytes # 2.8 H (0-1.0) k/uL PT (9.0-12.0) sec INR (<1.2) ABG pH (7.35-7.45) ABG pCO2 (35-45) mmHg ABG pO2 (83-108) mmHg ABG HCO3 (21-25) mmol/L ABG O2 Saturation (94-97) % ABG Lactic Acid (0.5-1.6) mmol/L Sodium (137-145) mmol/L Potassium (3.5-5.1) mmol/L Carbon Dioxide (22-30) mmol/L BUN (7-17) mg/dL Creatinine (0.52-1.04) mg/dL Glucose (74-99) mg/dL POC Glucose (mg/dL) 264 H 333 H (70-110) mg/dL Plasma Lactic Acid Syd (0.7-2.0) mmol/L Calcium (8.4-10.2) mg/dL Total Bilirubin (0.2-1.3) mg/dL AST (14-36) U/L ALT (4-34) U/L Troponin I (0.000-0.034) ng/mL Total Protein (6.3-8.2) g/dL Albumin (3.5-5.0) g/dL Urine Appearance (Clear) Urine Protein (Negative) Urine Blood (Negative) Ur Leukocyte Esterase (Negative) Urine RBC (0-5) /hpf Urine WBC (0-5) /hpf Amorphous Sediment (None) /hpf Urine Bacteria (None) /hpf Urine Mucus (None) /hpf Crossmatch 03/29/23 03/29/23 03/29/23 Range/Units 06:13 06:13 06:20 WBC (3.8-10.6) k/uL RBC (3.80-5.40) m/uL Hgb (11.4-16.0) gm/dL Hct (34.0-46.0) % RDW (11.5-15.5) % Neutrophils # (1.3-7.7) k/uL Monocytes # (0-1.0) k/uL PT (9.0-12.0) sec INR (<1.2) ABG pH 7.17 L* (7.35-7.45) ABG pCO2 50 H (35-45) mmHg ABG pO2 168 H (83-108) mmHg ABG HCO3 18 L (21-25) mmol/L ABG O2 Saturation 99.5 H (94-97) % ABG Lactic Acid (0.5-1.6) mmol/L Sodium (137-145) mmol/L Potassium (3.5-5.1) mmol/L Carbon Dioxide 19 L (22-30) mmol/L BUN 40 H (7-17) mg/dL Creatinine 1.91 H (0.52-1.04) mg/dL Glucose 372 H (74-99) mg/dL POC Glucose (mg/dL) (70-110) mg/dL Plasma Lactic Acid Syd 3.5 H* (0.7-2.0) mmol/L Calcium 7.9 L (8.4-10.2) mg/dL Total Bilirubin (0.2-1.3) mg/dL AST (14-36) U/L ALT (4-34) U/L Troponin I (0.000-0.034) ng/mL Total Protein (6.3-8.2) g/dL Albumin (3.5-5.0) g/dL Urine Appearance (Clear) Urine Protein (Negative) Urine Blood (Negative) Ur Leukocyte Esterase (Negative) Urine RBC (0-5) /hpf Urine WBC (0-5) /hpf Amorphous Sediment (None) /hpf Urine Bacteria (None) /hpf Urine Mucus (None) /hpf Crossmatch 03/29/23 03/29/23 03/29/23 Range/Units 07:09 07:12 08:00 WBC (3.8-10.6) k/uL RBC (3.80-5.40) m/uL Hgb (11.4-16.0) gm/dL Hct (34.0-46.0) % RDW (11.5-15.5) % Neutrophils # (1.3-7.7) k/uL Monocytes # (0-1.0) k/uL PT (9.0-12.0) sec INR (<1.2) ABG pH (7.35-7.45) ABG pCO2 (35-45) mmHg ABG pO2 (83-108) mmHg ABG HCO3 (21-25) mmol/L ABG O2 Saturation (94-97) % ABG Lactic Acid (0.5-1.6) mmol/L Sodium (137-145) mmol/L Potassium (3.5-5.1) mmol/L Carbon Dioxide (22-30) mmol/L BUN (7-17) mg/dL Creatinine (0.52-1.04) mg/dL Glucose (74-99) mg/dL POC Glucose (mg/dL) 441 H 439 H (70-110) mg/dL Plasma Lactic Acid Syd (0.7-2.0) mmol/L Calcium (8.4-10.2) mg/dL Total Bilirubin (0.2-1.3) mg/dL AST (14-36) U/L ALT (4-34) U/L Troponin I (0.000-0.034) ng/mL Total Protein (6.3-8.2) g/dL Albumin (3.5-5.0) g/dL Urine Appearance Cloudy H (Clear) Urine Protein 1+ H (Negative) Urine Blood Moderate H (Negative) Ur Leukocyte Esterase Large H (Negative) Urine RBC 6 H (0-5) /hpf Urine WBC 23 H (0-5) /hpf Amorphous Sediment Moderate H (None) /hpf Urine Bacteria Rare H (None) /hpf Urine Mucus Rare H (None) /hpf Crossmatch 03/29/23 03/29/23 03/29/23 Range/Units 09:45 09:45 09:59 WBC 20.6 H (3.8-10.6) k/uL RBC 2.28 L (3.80-5.40) m/uL Hgb 6.7 L* D (11.4-16.0) gm/dL Hct 21.3 L (34.0-46.0) % RDW 15.7 H (11.5-15.5) % Neutrophils # 18.0 H (1.3-7.7) k/uL Monocytes # 1.3 H (0-1.0) k/uL PT 12.5 H (9.0-12.0) sec INR 1.2 H (<1.2) ABG pH (7.35-7.45) ABG pCO2 (35-45) mmHg ABG pO2 (83-108) mmHg ABG HCO3 (21-25) mmol/L ABG O2 Saturation (94-97) % ABG Lactic Acid (0.5-1.6) mmol/L Sodium (137-145) mmol/L Potassium (3.5-5.1) mmol/L Carbon Dioxide (22-30) mmol/L BUN (7-17) mg/dL Creatinine (0.52-1.04) mg/dL Glucose (74-99) mg/dL POC Glucose (mg/dL) 434 H (70-110) mg/dL Plasma Lactic Acid Syd (0.7-2.0) mmol/L Calcium (8.4-10.2) mg/dL Total Bilirubin (0.2-1.3) mg/dL AST (14-36) U/L ALT (4-34) U/L Troponin I (0.000-0.034) ng/mL Total Protein (6.3-8.2) g/dL Albumin (3.5-5.0) g/dL Urine Appearance (Clear) Urine Protein (Negative) Urine Blood (Negative) Ur Leukocyte Esterase (Negative) Urine RBC (0-5) /hpf Urine WBC (0-5) /hpf Amorphous Sediment (None) /hpf Urine Bacteria (None) /hpf Urine Mucus (None) /hpf Crossmatch 03/29/23 Range/Units 10:30 WBC (3.8-10.6) k/uL RBC (3.80-5.40) m/uL Hgb (11.4-16.0) gm/dL Hct (34.0-46.0) % RDW (11.5-15.5) % Neutrophils # (1.3-7.7) k/uL Monocytes # (0-1.0) k/uL PT (9.0-12.0) sec INR (<1.2) ABG pH 7.13 L* (7.35-7.45) ABG pCO2 62 H (35-45) mmHg ABG pO2 111 H (83-108) mmHg ABG HCO3 20 L (21-25) mmol/L ABG O2 Saturation 97.4 H (94-97) % ABG Lactic Acid (0.5-1.6) mmol/L Sodium (137-145) mmol/L Potassium (3.5-5.1) mmol/L Carbon Dioxide (22-30) mmol/L BUN (7-17) mg/dL Creatinine (0.52-1.04) mg/dL Glucose (74-99) mg/dL POC Glucose (mg/dL) (70-110) mg/dL Plasma Lactic Acid Syd (0.7-2.0) mmol/L Calcium (8.4-10.2) mg/dL Total Bilirubin (0.2-1.3) mg/dL AST (14-36) U/L ALT (4-34) U/L Troponin I (0.000-0.034) ng/mL Total Protein (6.3-8.2) g/dL Albumin (3.5-5.0) g/dL Urine Appearance (Clear) Urine Protein (Negative) Urine Blood (Negative) Ur Leukocyte Esterase (Negative) Urine RBC (0-5) /hpf Urine WBC (0-5) /hpf Amorphous Sediment (None) /hpf Urine Bacteria (None) /hpf Urine Mucus (None) /hpf Crossmatch Assessment and Plan Assessment: Status-post right revision distal femoral replacing hinge for comminuted per iprosthetic distal femur fracture on 03/28/23. Post-op day #1. Plan: - Appreciate medical and ICU management per multiple medical specialities including pulmonology/critical care, nephrology, internal medicine. - Keep Prevena wound vac in place. Do not remove. Will leave hemovac drain in place. She may weight bear to tolerance on right lower extremity once extubated. - 2 doses post-op antibiotics. - Patient was started on Heparin per ICU team. - We will follow patient very closely and make recommendations as needed.
[2023-03-29 11:25] LABS: Glucose,Whole Blood 363 mg/dL (70-110)
[2023-03-29 11:27] LABS: INR 1.2 (<1.2); Partial Thromboplastin Time 25.1 sec (22.0-30.0); Prothrombin Time 12.1 sec (9.0-12.0)
--- NOTE | 2023-03-29 11:34 | US ---
EXAMINATION TYPE: US kidneys/renal and bladder DATE OF EXAM: 03/29/2023 COMPARISON: 01/19/2022 CLINICAL INDICATION: Female, 72 years old with history of keyla; KEYLA EXAM MEASUREMENTS: Right Kidney: 11.5 x 4.2 x 3.6 cm Left Kidney: unable to visualize Technical limitations due to patient's body habitus, ICU patient, unable to rotate from supine posi tion Right Kidney: anechoic area mid = 1.0 x 0.9 x 1.1cm as on prior exam no obvious hydronephrosis or ne phrolithiasis. Mild renal cortical thinning. Cortical medullary differentiation preserved. Left Kidney: Obscured by overlying bowel gas Bladder: Morales catheter present and therefore nondiagnostic. IMPRESSION: 1. Mild cortical thinning with stable 1 cm too small to characterize right renal lesion. No hydroneph rosis or nephrolithiasis.
--- NOTE | 2023-03-29 11:42 | OP ---
OPERATIVE REPORT DATE OF SERVICE : PROCEDURE PERFORMED: Placement of a left subclavian triple-lumen catheter. PREOPERATIVE DIAGNOSES: Profound hypotension and acute hypoxic respiratory failure. POSTOPERATIVE DIAGNOSES: Profound hypotension and acute hypoxic respiratory failure. ANESTHESIA USED: 2 mL of 1% lidocaine. DESCRIPTION OF PROCEDURE: The patient was placed in the supine position, the area of the left subclavian region was prepared in a sterile fashion. Drapes were applied. The area below the left clavicle was locally anesthetized. Then using the inferior approach, the left subclavian vein was easily cannulated, and a guidewire was placed. The area around the guidewire was dilated. Then, a triple-lumen catheter was inserted over the guidewire, and the guidewire was removed. Good blood flow noted in the 3 different ports of the triple-lumen catheter. Line was secured using 3.0 silk sutures. Chest x-ray showed no evidence of complications and adequate placement of the left subclavian central line. MMODL / IJN: [id number] /
--- NOTE | 2023-03-29 11:48 | CA ---
Transthoracic Echo Report Name: Chloe Rios Age: 72 Gender: F : 1950 Exam Date: 03/29/2023 09:04 Exam Location: [facility] Ht (in): 62 Wt (lb): 255 Ordering Physician: Peña Babcock MD Attending/Referring Phys: Ham Clerk Shania Vinson RDCS Procedure CPT: Indications: Hypotension Cardiac Hx: Technical Quality: Fair Contrast 1: Total Dose (mL): Contrast 2: Total Dose (mL): MEASUREMENTS (Male / Female) Normal Values 2D ECHO LV Diastolic Diameter PLAX 3.1 cm 4.2 - 5.9 / 3.9 - 5.3 cm LV Systolic Diameter PLAX 2.3 cm IVS Diastolic Thickness 1.5 cm 0.6 - 1.0 / 0.6 - 0.9 cm LVPW Diastolic Thickness 1.9 cm 0.6 - 1.0 / 0.6 - 0.9 cm LV Relative Wall Thickness 1.1 RV Internal Dim ED PLAX 4.5 cm M-MODE Aortic Root Diameter MM 2.6 cm LA Systolic Diameter MM 3.2 cm LA Ao Ratio MM 1.2 AV Cusp Separation MM 1.5 cm DOPPLER AV Peak Velocity 220.3 cm/s AV Peak Gradient 19.4 mmHg AV Mean Velocity 143.1 cm/s AV Mean Gradient 9.5 mmHg AV Velocity Time Integral 26.1 cm LVOT Peak Velocity 147.3 cm/s LVOT Peak Gradient 8.7 mmHg LVOT Velocity Time Integral 17.6 cm MV Area PHT 5.6 cm??? Mitral E Point Velocity 56.2 cm/s Mitral A Point Velocity 103.5 cm/s Mitral E to A Ratio 0.5 MV Deceleration Time 134.4 ms TR Peak Velocity 388.5 cm/s TR Peak Gradient 60.4 mmHg Right Ventricular Systolic Press 70.5 mmHg FINDINGS Left Ventricle Moderately increased left ventricular wall thickness. Left ventricular cavity size normal. Normal left ventricular systolic function with no obvious regional wall motion abnormalities. Left ventricular ejection fraction is estimated at 50-55 %. Right Ventricle Severe right ventricular dilatation. Generalized right ventricular hypokinesis. Severe pulmonary hypertension. Right ventricular systolic pressure estimated at 71 mm hg. No strain noted, TAPSE is 25mm and S' wave is 11cm/sec. Right Atrium Normal right atrial size. Left Atrium Normal left atrial size. Mitral Valve Structurally normal mitral valve. Mitral valve thickened. Mild mitral annular calcification. Trace to mild mitral regurgitation. Aortic Valve No aortic valve stenosis or regurgitation. Tricuspid Valve [id number] tricuspid regurgitation. Tricuspid regurgitation jet eccentric. Pulmonic Valve Trace pulmonic regurgitation. Pericardium No pericardial effusion. Echo free space anterior to the right ventricle likely represents a fat pad. Aorta Normal size aortic root and proximal ascending aorta. CONCLUSIONS LV size and systolic function is fairly well-preserved. Right ventricle is significantly enlarged there is severe pulmonary hypertension. Mitral annular calcification with mild mitral regurgitation. Moderate to severe tricuspid regurgitation. Aortic valve appears normal with mild sclerosis no pericardial effusion probable fat pad Previewed by: Dr. Leslie Jc MD (Electronically Signed) Final Date: 29 Mar 2023 11:47
[2023-03-29 11:52] LABS: T4, Free (Free Thyroxine) 1.55 ng/dL (0.78-2.19)
[2023-03-29] MEDS: FLUoxetine HCL 20 MG CAP PO SCH (11:53)
[2023-03-29] MEDS: FERROUS SULFATE 325 MG TAB PO SCH (11:53)
[2023-03-29] MEDS: ASPIRIN 81 MG PO SCH ×2 (11:53→20:52)
[2023-03-29] MEDS: CHLORHEXIDINE GLUCONATE 15 ML CUP MUCOUS MEM SCH ×2 (11:54→20:52)
[2023-03-29] MEDS: PANTOPRAZOLE 40 MG/10 ML VIAL IV SCH (11:54)
[2023-03-29] MEDS: DEXTROSE 5% IN WATER 1,000 ML with SODIUM BICARB (1 MEQ/ML) 150 ML IV SCH (12:02)
[2023-03-29 12:18] LABS: Glucose,Whole Blood 365 mg/dL (70-110)
[2023-03-29 12:35] LABS: Glucose,Whole Blood 296 mg/dL (70-110)
[2023-03-29 13:13] LABS: Glucose,Whole Blood 346 mg/dL (70-110)
[2023-03-29 14:09] LABS: Glucose,Whole Blood 358 mg/dL (70-110)
[2023-03-29 15:01] LABS: ABG Base Excess -6.6 mmol/L; ABG HCO3 22 mmol/L (21-25); ABG Oxygen Saturation 98.8 % (94-97); ABG PCO2 64 mmHg (35-45); ABG PO2 134 mmHg (83-108); ABG TCO2 24 mmol/L (19-24); Allen Test Performed? Yes
[2023-03-29 15:04] LABS: ABG PH 7.15 (7.35-7.45)
[2023-03-29 15:09] LABS: Glucose,Whole Blood 214 mg/dL (70-110)
--- NOTE | 2023-03-29 15:10 | P.PN ---
Progress Note - Text Progress Note Date: 03/29/23 - Chief Complaint Right leg injury History of presenting complaint: very pleasant 72-year-old patient of Dr. Persaud. Chronic stable medical conditions include diabetes, hyperlipidemia, hypertension, primary osteoarthritis, peripheral neuropathy, bilateral breast cancer with bilateral mastectomy, IBS, diverticulosis, chronic low back arthritis. Anxiety depression. Diagnosis of ulcerative colitis for about 15 years. On Asacol 800 mg 3 times a day. In November 2020 did undergo coloscopy by Dr. Moreno. Normal- appearing colon. Patient does follow with Dr. Angi Stallings. On an average has about 10 bowel movements a day. Present for years. Patient today was at the [facility]. Troponin went and fell down. Computed tomography scan showing a comminuted fracture distal metaphyseal femur adjacent to the knee processes. Some external rotation. Right lower extremity - brace. Patient's able to get about the house.. No chest pain or palpitation. March 27: Reclining bed. Pain control. Oral intake fair. Pending surgery tomorrow. Discussed with patient has would've the bedside. March 28: Patient seen by me this morning prior to surgery. In bed. Comfortable. Nothing by mouth. Pending surgery this afternoon. March 29: ICU. Yesterday patient underwent right revision total knee replacement the distal femoral replacement age for periprosthetic distal femur fracture. Estimated blood loss was about 600 mL. In the perioperative area patient blood pressure was running low. Patient was transferred to the ICU. Patient did receive 2 units of blood yesterday. Today patient is intubated. FiO2 85% and a PEEP of 10. Drips include we will affect, propofol, Nimbex. Patient started IV heparin for underlying suspicion of pulmonary embolism. Accu-Cheks running high has put on insulin drip. Oral gastric tube. Patient's and 2 daughters at the bedside. Discussed at length. Patient renal function also worsened. Hyperkalemia. Given bicarbonate. Being followed by ivory carver, nephrology. Another unit of blood pending. Hemoglobin this morning 6.7. Patient has increased right-sided heart pressures suspicious for therefore PE/fat embolism. Active Medications Hydrocodone Bitart/Acetaminophen (Hydrocodone/Apap 5-325mg 1 Each Tab) 1 each PO Q4HR PRN PRN Reason: Moderate Pain (Scale 4 to 6) Last Admin: 03/28/23 15:58 Dose: 1 each Albuterol/Ipratropium (Ipratropium-Albuterol 3 Ml Neb) 3 ml INHALATION RT-Q4H [facility] Last Admin: 03/29/23 11:28 Dose: 3 ml Aspirin (Aspirin 81 Mg) 81 mg PO BID [facility] Last Admin: 03/29/23 11:53 Dose: 81 mg Chlorhexidine Gluconate (Chlorhexidine Gluconate 15 Ml Cup) 15 ml MUCOUS MEM BID [facility] Last Admin: 03/29/23 11:54 Dose: 15 ml Dextrose/Water (Dextrose 50% Syringe 50 Ml) 25 ml IVP PER PROTOCOL PRN; Protocol PRN Reason: Hypoglycemia Dextrose/Water (Dextrose 50% Syringe 50 Ml) 50 ml IVP PER PROTOCOL PRN; Protocol PRN Reason: Hypoglycemia Ferrous Sulfate (Ferrous Sulfate 325 Mg Tab) 325 mg PO DAILY [facility] Last Admin: 03/29/23 11:53 Dose: 325 mg Fluoxetine HCl (Fluoxetine Hcl 20 Mg Cap) 40 mg PO DAILY [facility] Last Admin: 03/29/23 11:53 Dose: 40 mg Heparin Sodium (Porcine) (Heparin Sodium 1,000 Un/Ml (10ml Vl)) 0 unit IV PER PROTOCOL PRN; Protocol PRN Reason: Low PTT Hydromorphone HCl (Hydromorphone 0.5 Mg/0.5 Ml Syringe) 0.125 mg IVP Q3HR PRN PRN Reason: Pain Scale 1 to 3 Hydromorphone HCl (Hydromorphone 0.5 Mg/0.5 Ml Syringe) 0.5 mg IVP Q3HR PRN PRN Reason: Pain Scale 7 to 10 Last Admin: 03/29/23 03:40 Dose: 0.5 mg Hydromorphone HCl (Hydromorphone 0.5 Mg/0.5 Ml Syringe) 0.25 mg IVP Q3HR PRN PRN Reason: Pain Scale 4 to 6 Norepinephrine Bitartrate 4 mg (/ Sodium Chloride) 254 mls @ 13.221 mls/hr IV .[id number] [facility]; Protocol Last Titration: 03/29/23 14:02 Dose: 0.11 mcg/kg/min, 48.476 mls/hr Propofol 1,000 mg/ IV Solution 100 mls @ 10.41 mls/hr IV .[id number] [facility]; Protocol Last Admin: 03/29/23 12:46 Dose: 50 mcg/kg/min, 34.7 mls/hr Vasopressin 20 unit/ Sodium (Chloride) 51 mls @ 4.59 mls/hr IV .[id number] [facility]; Protocol Last Admin: 03/29/23 04:02 Dose: 0.03 units/min, 4.59 mls/hr Cisatracurium Besylate 200 mg/ (Sodium Chloride) 200 mls @ 6.94 mls/hr IV .Q24H [facility]; Protocol Last Titration: 03/29/23 13:53 Dose: 0.5 mcg/kg/min, 3.47 mls/hr Insulin Human Regular 100 unit (/ Sodium Chloride) 100 mls @ 0 mls/hr IV .Q0M [facility]; Protocol Last Titration: 03/29/23 14:05 Dose: 16.3 units/hr, 16.3 mls/hr Heparin Sodium/Sodium Chloride (25,000 unit/ Sodium Chloride) 250 mls @ 10.005 mls/hr IV .Q24H [facility]; Protocol Last Admin: 03/29/23 11:07 Dose: 8.65 units/kg/hr, 10.005 mls/hr Norepinephrine Bitartrate 32 (mg/ Sodium Chloride) 250 mls @ 1.627 mls/hr IV .Q24H [facility]; Protocol Last Admin: 03/29/23 10:21 Dose: 0.06 mcg/kg/min, 3.253 mls/hr Sodium Bicarbonate 150 ml/ (Dextrose/Water) 1,150 mls @ 75 mls/hr IV .[id number] [facility] Last Admin: 03/29/23 12:02 Dose: 75 mls/hr Ceftriaxone Sodium 1 gm/ (Sodium Chloride) 50 mls @ 100 mls/hr IVPB Q12HR [facility]; Protocol Lorazepam (Lorazepam 0.5 Mg Tab) 0.5 mg PO Q6HR PRN PRN Reason: Anxiety Naloxone HCl (Naloxone 0.4 Mg/Ml 1 Ml Vial) 0.2 mg IV Q2M PRN PRN Reason: Opioid Reversal Olanzapine (Olanzapine 5 Mg Tab) 5 mg PO HS [facility] Last Admin: 03/28/23 23:52 Dose: Not Given Ondansetron HCl (Ondansetron 4 Mg/2 Ml Vial) 4 mg IVP Q8HR PRN PRN Reason: Nausea And Vomiting Pantoprazole Sodium (Pantoprazole 40 Mg/10 Ml Vial) 40 mg IV DAILY [facility] Last Admin: 03/29/23 11:54 Dose: 40 mg Psyllium Hydrophilic Mucilloid (Psyllium Husk 100% 6 Gm Packet) 6 gm PO BID [facility] Last Admin: 03/29/23 10:19 Dose: Not Given Senna/Docusate Sodium (Sennosides-Docusate Sodium 1 Each Tab) 2 each PO HS [facility] to include: Diabetes mellitus type 2, hyperlipidemia, hypertension, osteoarthritis, peripheral neuropathy, bilateral breast cancer with bilateral mastectomies, ulcerative colitis-colonoscopy has shown normal colon and biopsy was negative., diverticulosis, chronic low back pain and arthritis, anxiety depression. COVID- 19 Social history: . Smoked for 41 years stopped in 2005. No alcohol Physical examination: VITAL SIGNS: 99.7, 101, 26, 06/44, 97% on ventilator GENERAL: BMI 46.6, reclining intubated. OG tube EYES: Pupils equal. Conjunctiva normal. HEENT: External appearance of nose and ears normal, oral cavity OG tube NECK: JVD unable to assess; masses not palpable. HEART: First and second heart sounds are normal; no edema. LUNGS: Respiratory rate increased, decreased breath sounds ABDOMEN: Soft, nontender, liver spleen not palpable, no masses palpable. PSYCH: Sedated MUSCULAR skeletal: Evidence of OA especially in the hands . Right lower extremity in a brace INVESTIGATIONS, reviewed in the clinical context: 2-D echocardiogram: Moderate increased LVH. EF 50-55%. Severe right ventricle dilatation generalized right ventricle hypokinesis. Severe pulmonary hypertension. Moderate to severe tricuspid regurgitation. Ultrasound venous Doppler lower extremity: Limited views. No obvious DVT. Ultrasound kidney: Right kidney: Mild renal cortical thinning. Left kidney obscured. March 29: White count 20.6 hemoglobin 6.7 platelets 300 ABG: PH 7.13 pCO2 62. Potassium 5.1 BUN 40 creatinine 1.91 blood glucose 372 UA: Noted March 28: White count 9.1 hemoglobin 9.5 potassium 4.4 BUN 36 creatinine 1.37 White count 12.2 hemoglobin 11.5 platelets 510 sodium 140 potassium 4 BUN 34 creatinine 1.9 EKG tracing personally reviewed by me-normal sinus rhythm. Chest x-ray film personally reviewed by me-: Portable. No obvious infiltrate Knee x-ray/femur CT: Comminuted fracture distal metadiaphyseal femur adjacent to a knee processes. Displacement of the distal fracture fragment from the proximal fracture Assessment and plan: -Fall leading to acute Comminuted fracture distal metadiaphyseal femur adjacent to a knee processes. Displacement of the distal fracture fragment from the proximal fracture. March 28:right revision total knee replacement the distal femoral replacement age for periprosthetic distal femur fracture. By Dr. Stack. EBL 600 mL -Acute severe blood loss anemia from surgery Patient received 2 units of blood yesterday. Pending murmur unit of blood today. -Hyperkalemia from acute kidney injury -IV heparin monitoring Follow PTT -Acute cor pulmonale with underlying suspicious for fat embolism/pulmonary embolism with acute right ventricle dilatation and moderate to severe TR. -Acute hypotensive shock from blood loss anemia. Receive 2 units of blood. IV levo fed -Acute kidney injury likely cardiorenal syndrome/ATN. From hypotension and anemia. 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 And Amaryl. Insulin drip -Hyperlipidemia Lipitor, TriCor -Anxiety not otherwise specified Klonopin 0.5 mg 3 times a day -Depression Zyprexa 5 mg daily at bedtime, Prozac 40 mg a day -Hyperuricemia Allopurinol -Essential hypertension, currently running low -Primary osteoarthritis Pain medications when necessary -Chronic kidney disease stage III from diabetic nephropathy and hypertensive nephrosclerosis Follow renal function ICU. Critically ill. Current drips include levo fed, propofol, Nimbex. IV heparin. IV insulin. OG tube. Intubated. Discussed with to daughter the bedside. Awaiting 3rd unit of blood. Thank you Dr. Stack
[2023-03-29 16:04] LABS: Glucose,Whole Blood 242 mg/dL (70-110)
[2023-03-29 16:30] LABS: ABG Base Excess -1.6 mmol/L; ABG HCO3 26 mmol/L (21-25); ABG PCO2 57 mmHg (35-45); ABG PH 7.26 (7.35-7.45); ABG PO2 95 mmHg (83-108); ABG TCO2 27 mmol/L (19-24); Allen Test Performed? Yes
[2023-03-29] MEDS ORDERED: FUROSEMIDE 10 MG/ML 10 ML VIAL IV STA (16:49)
[2023-03-29 17:05] LABS: Glucose,Whole Blood 276 mg/dL (70-110)
[2023-03-29 17:34] LABS: HCT 24.4 % (34.0-46.0); HGB 8.1 gm/dL (11.4-16.0); MCH 29.6 pg (25.0-35.0); MCHC 33.2 g/dL (31.0-37.0); Mean Platelet Volume 8.7; Platelet Count 261 k/uL (150-450); RBC 2.74 m/uL (3.80-5.40); RDW 15.4 % (11.5-15.5); WBC 14.7 k/uL (3.8-10.6)
[2023-03-29 18:05] LABS: Glucose,Whole Blood 225 mg/dL (70-110)
[2023-03-29] MEDS ORDERED: HEPARIN SODIUM 1,000 UN/ML (10ML VL) IV ONE (18:30)
[2023-03-29] MEDS ORDERED: ENOXAPARIN 30 MG/0.3 ML SYRINGE SQ SCH (19:00)
[2023-03-29 19:01] LABS: Glucose,Whole Blood 213 mg/dL (70-110)
[2023-03-29 19:43] LABS: Calcium 7.6 mg/dL (8.4-10.2); Potassium 3.9 mmol/L (3.5-5.1)
[2023-03-29 20:09] LABS: Glucose,Whole Blood 185 mg/dL (70-110)
[2023-03-29] MEDS: SENNOSIDES-DOCUSATE SODIUM 1 EACH TAB PO SCH (20:52)
[2023-03-29] MEDS: OLANZapine 5 MG TAB PO SCH (20:52)
[2023-03-29 21:03] LABS: Glucose,Whole Blood 153 mg/dL (70-110)
[2023-03-29 22:02] LABS: Glucose,Whole Blood 131 mg/dL (70-110)
[2023-03-29 23:15] LABS: Glucose,Whole Blood 175 mg/dL (70-110)
[2023-03-30 00:01] LABS: Glucose,Whole Blood 219 mg/dL (70-110)
[2023-03-30] MEDS: IPRATROPIUM-ALBUTEROL 3 ML NEB INHALATION SCH ×6 (00:19→20:33)
[2023-03-30] MEDS: ARTIFICIAL TEARS-HYPROMELLOSE DROPS 15 ML BTL BOTH EYES SCH ×6 (00:23→19:58)
[2023-03-30 01:15] LABS: Glucose,Whole Blood 222 mg/dL (70-110)
[2023-03-30] MEDS: HEPARIN SODIUM 1,000 UN/ML (10ML VL) IV PRN (02:08)
[2023-03-30] MEDS: INSULIN REGULAR 100 UNIT in SODIUM CHLORIDE 0.9% 100 ML IV SCH ×2 (02:16→10:15)
[2023-03-30 02:17] LABS: Glucose,Whole Blood 212 mg/dL (70-110)
[2023-03-30] MEDS: VASOPRESSIN 20 UNIT in SODIUM CHLORIDE 0.9% 50 ML IV SCH (02:25)
[2023-03-30 03:08] LABS: Glucose,Whole Blood 185 mg/dL (70-110)
[2023-03-30 03:58] LABS: Glucose,Whole Blood 175 mg/dL (70-110)
[2023-03-30 04:12] LABS: Basophils % (A) 0 %; Eosinophils % (A) 0 %; HCT 26.3 % (34.0-46.0); HGB 8.8 gm/dL (11.4-16.0); Lymphocytes # (A) 1.4 k/uL (1.0-4.8); Lymphocytes % (A) 10 %; MCH 29.5 pg (25.0-35.0); MCHC 33.5 g/dL (31.0-37.0); Mean Platelet Volume 8.7; Monocytes # (A) 0.9 k/uL (0-1.0); Monocytes % (A) 7 %; Neutrophils # (A) 11.4 k/uL (1.3-7.7); Neutrophils % (A) 82 %; Platelet Count 266 k/uL (150-450); Poikilocytosis Slight; RBC 2.99 m/uL (3.80-5.40); RDW 15.6 % (11.5-15.5)
[2023-03-30 04:53] LABS: Glucose,Whole Blood 163 mg/dL (70-110)
[2023-03-30 05:18] LABS: Albumin 2.8 g/dL (3.5-5.0); Calcium 8.4 mg/dL (8.4-10.2); Potassium 3.8 mmol/L (3.5-5.1); Total Bilirubin 0.9 mg/dL (0.2-1.3); Total Protein 4.7 g/dL (6.3-8.2)
[2023-03-30 05:19] LABS: INR 1.1 (<1.2); Prothrombin Time 11.8 sec (9.0-12.0)
[2023-03-30 05:35] LABS: ABG Base Excess 1.8 mmol/L; ABG HCO3 28 mmol/L (21-25); ABG Oxygen Saturation 94.9 % (94-97); ABG PCO2 55 mmHg (35-45); ABG PH 7.31 (7.35-7.45); ABG PO2 72 mmHg (83-108); ABG TCO2 30 mmol/L (19-24)
[2023-03-30] MEDS: HYDROmorphone 0.5 MG/0.5 ML SYRINGE IVP PRN (06:06)
[2023-03-30 06:12] LABS: Glucose,Whole Blood 151 mg/dL (70-110)
[2023-03-30] MEDS: HEPARIN SOD,PORK IN 0.45% NACL 25,000 UNIT in 0.45% NACL 1 250ML.BAG IV SCH ×2 (06:18→23:22)
[2023-03-30 06:58] LABS: Glucose,Whole Blood 136 mg/dL (70-110)
[2023-03-30] MEDS: DEXTROSE 5% IN WATER 1,000 ML with SODIUM BICARB (1 MEQ/ML) 150 ML IV SCH (07:37)
--- NOTE | 2023-03-30 07:39 | XR ---
EXAMINATION TYPE: XR chest 1V portable DATE OF EXAM: 03/30/2023 6:07 AM COMPARISON: Chest radiograph from one day prior. TECHNIQUE: XR chest 1V portable Frontal view of the chest. CLINICAL INDICATION:Female, 72 years old with history of Tube placement; FINDINGS: Lungs/Pleura: Similar blunting of left costophrenic angle. There are low lung volumes. Pulmonary vascularity: Unremarkable. Heart/mediastinum: Cardiomediastinal silhouette is partially obscured due to overlying and adjacent o pacities. Musculoskeletal: No acute osseous pathology. Other findings: None Lines/Tubes: Endotracheal tube with distal tip 3.0 cm above the radha. Nasogastric tube with its distal tip and side-port projecting under the diaphragm and projecting over the gastric lumen. Left central venous catheter with distal tip at the cavoatrial junction. IMPRESSION: 1. Similar left trace pleural effusion. 2. Stable support tubes.
[2023-03-30] MEDS: PSYLLIUM HUSK 100% 6 GM PACKET PO SCH ×2 (08:00→08:21)
[2023-03-30 08:04] LABS: Glucose,Whole Blood 189 mg/dL (70-110)
[2023-03-30] MEDS: CISATRACURIUM 200 MG in SODIUM CHLORIDE 0.9% 180 ML IV SCH (08:12)
[2023-03-30] MEDS: PANTOPRAZOLE 40 MG/10 ML VIAL IV SCH (08:21)
[2023-03-30] MEDS: CHLORHEXIDINE GLUCONATE 15 ML CUP MUCOUS MEM SCH ×2 (08:21→20:01)
[2023-03-30] MEDS: FERROUS SULFATE 325 MG TAB PO SCH (08:21)
[2023-03-30] MEDS: FLUoxetine HCL 20 MG CAP PO SCH (08:22)
[2023-03-30] MEDS: ASPIRIN 81 MG PO SCH ×2 (08:22→20:01)
[2023-03-30] MEDS: HYDROcodone/APAP 5-325MG 1 EACH TAB PO PRN (08:22)
[2023-03-30] MEDS: INSULIN ASPART (NovoLOG) 100 UNIT/ML VIAL SQ SCH (08:23)
[2023-03-30 09:03] LABS: Glucose,Whole Blood 204 mg/dL (70-110)
--- NOTE | 2023-03-30 09:52 | P.PN ---
Subjective Progress Note Date: 03/30/23 This patient is a 72- year old female who is status-post right revision distal femoral replacing hinge for comminuted periprosthetic distal femur fracture on 03/28/23. Today is post-operative day #1. Patient is examined bedside in the ICU with Dr. Stack. Patient remains intubated. Patient has received 2 units of PRBCs post- op, hemoglobin has resulted as 6.7 this morning, therefore an additional unit of PRBCs has been ordered. Arterial line has been placed. Nephrology has been consulted due to hyperkalemia and acute kidney injury. Doppler ultrasound of the bilateral lower extremities has been obtained this morning, which showed no acute DVT although was relatively non-diagnostic in some areas due to body habitus. Heparin drip has been initiated per Dr. Babcock. 03/30/23: Patient is examined bedside. She remains intubated and sedated in the ICU. Per nursing, no acute events overnight. Objective - Vital Signs Vital signs: Vital Signs Temp 98.5 F 03/30/23 08:00 Pulse 90 03/30/23 08:48 Resp 32 H 03/30/23 08:00 BP 128/57 03/29/23 22:00 Pulse Ox 96 03/30/23 08:00 FiO2 60 03/30/23 08:27 Intake & Output 03/29/23 03/30/23 03/30/23 18:59 06:59 18:59 Intake Total 2446.531 1742.359 286.852 Output Total 235 860 200 Balance 2211.531 882.359 86.852 Weight 115.666 kg Intake: IV 900 600 150 Dextrose 5% in Water 1, 500 600 100 000 ml @ 50 mls/hr IV . Q23H [facility] with Sodium Bicarb (1 Meq/ml) 150 ml Rx#:[id number] Lactated Ringers 1,000 ml 400 @ 100 mls/hr IV .Q10H [facility] Rx#:[id number] cefTRIAXone 1 gm In 50 Sodium Chloride 0.9% 50 ml @ 100 mls/hr IVPB Q12HR [facility] Rx#:[id number] Intake, IV Titration 1086.531 795.359 136.852 Amount Cisatracurium 200 mg In 77.555 27.008 35.278 Sodium Chloride 0.9% 180 ml @ 1 MCG/KG/MIN 6.94 mls/hr IV .Q24H [facility] Rx#: [id number] Heparin Sod,Pork in 0.45% 73.37 169.278 NaCl 25,000 unit In 0.45 % NaCl 1 250ml.bag @ 8.65 UNITS/KG/HR 10.005 mls/ hr IV .Q24H [facility] Rx#: [id number] Insulin Regular 100 unit 103.719 148.307 14.246 In Sodium Chloride 0.9% 100 ml @ Titrate IV .Q0M [facility] Rx#:[id number] Norepinephrine 32 mg In 35.936 67.383 Sodium Chloride 0.9% 218 ml @ 0.03 MCG/KG/MIN 1. 627 mls/hr IV .Q24H [facility] Rx#:[id number] Norepinephrine 4 mg In 293.956 Sodium Chloride 0.9% 250 ml @ 0.03 MCG/KG/MIN 13. 221 mls/hr IV .[id number] [facility] Rx#:[id number] Vasopressin 20 unit In 24.710 Sodium Chloride 0.9% 50 ml @ 0.03 UNITS/MIN 4.59 mls/hr IV .Q11H7M [facility] Rx# :[id number] ceFAZolin 2 gm In Sodium 50 Chloride 0.9% 50 ml @ 100 mls/hr IVPB Q8HR [facility] Rx# :[id number] propofoL 1,000 mg In 427.285 383.383 87.328 Empty Bag 1 bag @ 15 MCG/ KG/MIN 10.41 mls/hr IV . Q9H37M [facility] Rx#:[id number] Tube Feeding 60 257 Blood Product 310 Rc As-1 Unit 310 [id number] Other 90 90 Output: Drainage 60 Right Knee 60 Urine 235 800 200 Other: Voiding Method Indwelling Catheter Indwelling Catheter Indwelling Catheter ABP, PAP, CO, CI - Last Documented Arterial Blood Pressure 122/43 - Exam On examination, patient is intubated. On inspection of the right knee, there is Prevena wound vac in place that has a good seal at this time. Hemovac drain is in place. There is moderate swelling of the knee. The right lower extremity is warm and well perfused. Dorsalis pedis pulse easily palpable. - Labs CBC & Chem 7: 03/30/23 03:57 03/30/23 03:57 Labs: Abnormal Lab Results - Last 24 Hours (Table) 03/28/23 03/29/23 03/29/23 Range/Units 21:37 09:45 09:45 WBC 20.6 H (3.8-10.6) k/uL RBC 2.28 L (3.80-5.40) m/uL Hgb 6.7 L* D (11.4-16.0) gm/dL Hct 21.3 L (34.0-46.0) % RDW 15.7 H (11.5-15.5) % Neutrophils # 18.0 H (1.3-7.7) k/uL Monocytes # 1.3 H (0-1.0) k/uL PT (9.0-12.0) sec INR (<1.2) APTT (22.0-30.0) sec ABG pH (7.35-7.45) ABG pCO2 (35-45) mmHg ABG pO2 (83-108) mmHg ABG HCO3 (21-25) mmol/L ABG Total CO2 (19-24) mmol/L ABG O2 Saturation (94-97) % BUN (7-17) mg/dL Creatinine (0.52-1.04) mg/dL Glucose (74-99) mg/dL POC Glucose (mg/dL) 296 H (70-110) mg/dL Calcium (8.4-10.2) mg/dL AST (14-36) U/L ALT (4-34) U/L Total Protein (6.3-8.2) g/dL Albumin (3.5-5.0) g/dL TSH 0.217 L (0.465-4.680) mIU/L Crossmatch 03/29/23 03/29/23 03/29/23 Range/Units 09:45 09:59 10:30 WBC (3.8-10.6) k/uL RBC (3.80-5.40) m/uL Hgb (11.4-16.0) gm/dL Hct (34.0-46.0) % RDW (11.5-15.5) % Neutrophils # (1.3-7.7) k/uL Monocytes # (0-1.0) k/uL PT 12.5 H (9.0-12.0) sec INR 1.2 H (<1.2) APTT (22.0-30.0) sec ABG pH 7.13 L* (7.35-7.45) ABG pCO2 62 H (35-45) mmHg ABG pO2 111 H (83-108) mmHg ABG HCO3 20 L (21-25) mmol/L ABG Total CO2 (19-24) mmol/L ABG O2 Saturation 97.4 H (94-97) % BUN (7-17) mg/dL Creatinine (0.52-1.04) mg/dL Glucose (74-99) mg/dL POC Glucose (mg/dL) 434 H (70-110) mg/dL Calcium (8.4-10.2) mg/dL AST (14-36) U/L ALT (4-34) U/L Total Protein (6.3-8.2) g/dL Albumin (3.5-5.0) g/dL TSH (0.465-4.680) mIU/L Crossmatch 03/29/23 03/29/23 03/29/23 Range/Units 10:45 10:48 11:23 WBC (3.8-10.6) k/uL RBC (3.80-5.40) m/uL Hgb (11.4-16.0) gm/dL Hct (34.0-46.0) % RDW (11.5-15.5) % Neutrophils # (1.3-7.7) k/uL Monocytes # (0-1.0) k/uL PT 12.1 H (9.0-12.0) sec INR 1.2 H (<1.2) APTT (22.0-30.0) sec ABG pH (7.35-7.45) ABG pCO2 (35-45) mmHg ABG pO2 (83-108) mmHg ABG HCO3 (21-25) mmol/L ABG Total CO2 (19-24) mmol/L ABG O2 Saturation (94-97) % BUN (7-17) mg/dL Creatinine (0.52-1.04) mg/dL Glucose (74-99) mg/dL POC Glucose (mg/dL) 363 H (70-110) mg/dL Calcium (8.4-10.2) mg/dL AST (14-36) U/L ALT (4-34) U/L Total Protein (6.3-8.2) g/dL Albumin (3.5-5.0) g/dL TSH (0.465-4.680) mIU/L Crossmatch See Detail 03/29/23 03/29/23 03/29/23 Range/Units 12:16 13:08 14:05 WBC (3.8-10.6) k/uL RBC (3.80-5.40) m/uL Hgb (11.4-16.0) gm/dL Hct (34.0-46.0) % RDW (11.5-15.5) % Neutrophils # (1.3-7.7) k/uL Monocytes # (0-1.0) k/uL PT (9.0-12.0) sec INR (<1.2) APTT (22.0-30.0) sec ABG pH (7.35-7.45) ABG pCO2 (35-45) mmHg ABG pO2 (83-108) mmHg ABG HCO3 (21-25) mmol/L ABG Total CO2 (19-24) mmol/L ABG O2 Saturation (94-97) % BUN (7-17) mg/dL Creatinine (0.52-1.04) mg/dL Glucose (74-99) mg/dL POC Glucose (mg/dL) 365 H 346 H 358 H (70-110) mg/dL Calcium (8.4-10.2) mg/dL AST (14-36) U/L ALT (4-34) U/L Total Protein (6.3-8.2) g/dL Albumin (3.5-5.0) g/dL TSH (0.465-4.680) mIU/L Crossmatch 03/29/23 03/29/23 03/29/23 Range/Units 14:57 15:08 16:03 WBC (3.8-10.6) k/uL RBC (3.80-5.40) m/uL Hgb (11.4-16.0) gm/dL Hct (34.0-46.0) % RDW (11.5-15.5) % Neutrophils # (1.3-7.7) k/uL Monocytes # (0-1.0) k/uL PT (9.0-12.0) sec INR (<1.2) APTT (22.0-30.0) sec ABG pH 7.15 L* (7.35-7.45) ABG pCO2 64 H (35-45) mmHg ABG pO2 134 H (83-108) mmHg ABG HCO3 (21-25) mmol/L ABG Total CO2 (19-24) mmol/L ABG O2 Saturation 98.8 H (94-97) % BUN (7-17) mg/dL Creatinine (0.52-1.04) mg/dL Glucose (74-99) mg/dL POC Glucose (mg/dL) 214 H 242 H (70-110) mg/dL Calcium (8.4-10.2) mg/dL AST (14-36) U/L ALT (4-34) U/L Total Protein (6.3-8.2) g/dL Albumin (3.5-5.0) g/dL TSH (0.465-4.680) mIU/L Crossmatch 03/29/23 03/29/23 03/29/23 Range/Units 16:28 17:00 17:04 WBC 14.7 H (3.8-10.6) k/uL RBC 2.74 L (3.80-5.40) m/uL Hgb 8.1 L (11.4-16.0) gm/dL Hct 24.4 L (34.0-46.0) % RDW (11.5-15.5) % Neutrophils # (1.3-7.7) k/uL Monocytes # (0-1.0) k/uL PT (9.0-12.0) sec INR (<1.2) APTT (22.0-30.0) sec ABG pH 7.26 L (7.35-7.45) ABG pCO2 57 H (35-45) mmHg ABG pO2 (83-108) mmHg ABG HCO3 26 H (21-25) mmol/L ABG Total CO2 27 H (19-24) mmol/L ABG O2 Saturation 98.0 H (94-97) % BUN (7-17) mg/dL Creatinine (0.52-1.04) mg/dL Glucose (74-99) mg/dL POC Glucose (mg/dL) 276 H (70-110) mg/dL Calcium (8.4-10.2) mg/dL AST (14-36) U/L ALT (4-34) U/L Total Protein (6.3-8.2) g/dL Albumin (3.5-5.0) g/dL TSH (0.465-4.680) mIU/L Crossmatch 03/29/23 03/29/23 03/29/23 Range/Units 18:03 18:59 19:00 WBC (3.8-10.6) k/uL RBC (3.80-5.40) m/uL Hgb (11.4-16.0) gm/dL Hct (34.0-46.0) % RDW (11.5-15.5) % Neutrophils # (1.3-7.7) k/uL Monocytes # (0-1.0) k/uL PT (9.0-12.0) sec INR (<1.2) APTT (22.0-30.0) sec ABG pH (7.35-7.45) ABG pCO2 (35-45) mmHg ABG pO2 (83-108) mmHg ABG HCO3 (21-25) mmol/L ABG Total CO2 (19-24) mmol/L ABG O2 Saturation (94-97) % BUN 51 H (7-17) mg/dL Creatinine 2.37 H (0.52-1.04) mg/dL Glucose 181 H (74-99) mg/dL POC Glucose (mg/dL) 225 H 213 H (70-110) mg/dL Calcium 7.6 L (8.4-10.2) mg/dL AST (14-36) U/L ALT (4-34) U/L Total Protein (6.3-8.2) g/dL Albumin (3.5-5.0) g/dL TSH (0.465-4.680) mIU/L Crossmatch 03/29/23 03/29/23 03/29/23 Range/Units 19:58 21:00 21:59 WBC (3.8-10.6) k/uL RBC (3.80-5.40) m/uL Hgb (11.4-16.0) gm/dL Hct (34.0-46.0) % RDW (11.5-15.5) % Neutrophils # (1.3-7.7) k/uL Monocytes # (0-1.0) k/uL PT (9.0-12.0) sec INR (<1.2) APTT (22.0-30.0) sec ABG pH (7.35-7.45) ABG pCO2 (35-45) mmHg ABG pO2 (83-108) mmHg ABG HCO3 (21-25) mmol/L ABG Total CO2 (19-24) mmol/L ABG O2 Saturation (94-97) % BUN (7-17) mg/dL Creatinine (0.52-1.04) mg/dL Glucose (74-99) mg/dL POC Glucose (mg/dL) 185 H 153 H 131 H (70-110) mg/dL Calcium (8.4-10.2) mg/dL AST (14-36) U/L ALT (4-34) U/L Total Protein (6.3-8.2) g/dL Albumin (3.5-5.0) g/dL TSH (0.465-4.680) mIU/L Crossmatch 03/29/23 03/29/23 03/30/23 Range/Units 23:13 23:59 00:00 WBC (3.8-10.6) k/uL RBC (3.80-5.40) m/uL Hgb (11.4-16.0) gm/dL Hct (34.0-46.0) % RDW (11.5-15.5) % Neutrophils # (1.3-7.7) k/uL Monocytes # (0-1.0) k/uL PT (9.0-12.0) sec INR (<1.2) APTT 40.6 H (22.0-30.0) sec ABG pH (7.35-7.45) ABG pCO2 (35-45) mmHg ABG pO2 (83-108) mmHg ABG HCO3 (21-25) mmol/L ABG Total CO2 (19-24) mmol/L ABG O2 Saturation (94-97) % BUN (7-17) mg/dL Creatinine (0.52-1.04) mg/dL Glucose (74-99) mg/dL POC Glucose (mg/dL) 175 H 219 H (70-110) mg/dL Calcium (8.4-10.2) mg/dL AST (14-36) U/L ALT (4-34) U/L Total Protein (6.3-8.2) g/dL Albumin (3.5-5.0) g/dL TSH (0.465-4.680) mIU/L Crossmatch 03/30/23 03/30/23 03/30/23 Range/Units 01:13 02:15 03:07 WBC (3.8-10.6) k/uL RBC (3.80-5.40) m/uL Hgb (11.4-16.0) gm/dL Hct (34.0-46.0) % RDW (11.5-15.5) % Neutrophils # (1.3-7.7) k/uL Monocytes # (0-1.0) k/uL PT (9.0-12.0) sec INR (<1.2) APTT (22.0-30.0) sec ABG pH (7.35-7.45) ABG pCO2 (35-45) mmHg ABG pO2 (83-108) mmHg ABG HCO3 (21-25) mmol/L ABG Total CO2 (19-24) mmol/L ABG O2 Saturation (94-97) % BUN (7-17) mg/dL Creatinine (0.52-1.04) mg/dL Glucose (74-99) mg/dL POC Glucose (mg/dL) 222 H 212 H 185 H (70-110) mg/dL Calcium (8.4-10.2) mg/dL AST (14-36) U/L ALT (4-34) U/L Total Protein (6.3-8.2) g/dL Albumin (3.5-5.0) g/dL TSH (0.465-4.680) mIU/L Crossmatch 03/30/23 03/30/23 03/30/23 Range/Units 03:57 03:57 03:57 WBC 14.0 H (3.8-10.6) k/uL RBC 2.99 L (3.80-5.40) m/uL Hgb 8.8 L (11.4-16.0) gm/dL Hct 26.3 L (34.0-46.0) % RDW 15.6 H (11.5-15.5) % Neutrophils # 11.4 H (1.3-7.7) k/uL Monocytes # (0-1.0) k/uL PT (9.0-12.0) sec INR (<1.2) APTT (22.0-30.0) sec ABG pH (7.35-7.45) ABG pCO2 (35-45) mmHg ABG pO2 (83-108) mmHg ABG HCO3 (21-25) mmol/L ABG Total CO2 (19-24) mmol/L ABG O2 Saturation (94-97) % BUN 55 H (7-17) mg/dL Creatinine 2.43 H (0.52-1.04) mg/dL Glucose 163 H (74-99) mg/dL POC Glucose (mg/dL) 175 H (70-110) mg/dL Calcium (8.4-10.2) mg/dL AST 3981 H (14-36) U/L ALT 375 H (4-34) U/L Total Protein 4.7 L (6.3-8.2) g/dL Albumin 2.8 L (3.5-5.0) g/dL TSH (0.465-4.680) mIU/L Crossmatch 03/30/23 03/30/23 03/30/23 Range/Units 04:52 05:35 06:12 WBC (3.8-10.6) k/uL RBC (3.80-5.40) m/uL Hgb (11.4-16.0) gm/dL Hct (34.0-46.0) % RDW (11.5-15.5) % Neutrophils # (1.3-7.7) k/uL Monocytes # (0-1.0) k/uL PT (9.0-12.0) sec INR (<1.2) APTT (22.0-30.0) sec ABG pH 7.31 L (7.35-7.45) ABG pCO2 55 H (35-45) mmHg ABG pO2 72 L (83-108) mmHg ABG HCO3 28 H (21-25) mmol/L ABG Total CO2 30 H (19-24) mmol/L ABG O2 Saturation (94-97) % BUN (7-17) mg/dL Creatinine (0.52-1.04) mg/dL Glucose (74-99) mg/dL POC Glucose (mg/dL) 163 H 151 H (70-110) mg/dL Calcium (8.4-10.2) mg/dL AST (14-36) U/L ALT (4-34) U/L Total Protein (6.3-8.2) g/dL Albumin (3.5-5.0) g/dL TSH (0.465-4.680) mIU/L Crossmatch 03/30/23 03/30/23 03/30/23 Range/Units 06:57 07:58 08:01 WBC (3.8-10.6) k/uL RBC (3.80-5.40) m/uL Hgb (11.4-16.0) gm/dL Hct (34.0-46.0) % RDW (11.5-15.5) % Neutrophils # (1.3-7.7) k/uL Monocytes # (0-1.0) k/uL PT (9.0-12.0) sec INR (<1.2) APTT 66.5 H (22.0-30.0) sec ABG pH (7.35-7.45) ABG pCO2 (35-45) mmHg ABG pO2 (83-108) mmHg ABG HCO3 (21-25) mmol/L ABG Total CO2 (19-24) mmol/L ABG O2 Saturation (94-97) % BUN (7-17) mg/dL Creatinine (0.52-1.04) mg/dL Glucose (74-99) mg/dL POC Glucose (mg/dL) 136 H 189 H (70-110) mg/dL Calcium (8.4-10.2) mg/dL AST (14-36) U/L ALT (4-34) U/L Total Protein (6.3-8.2) g/dL Albumin (3.5-5.0) g/dL TSH (0.465-4.680) mIU/L Crossmatch 03/30/23 Range/Units 09:01 WBC (3.8-10.6) k/uL RBC (3.80-5.40) m/uL Hgb (11.4-16.0) gm/dL Hct (34.0-46.0) % RDW (11.5-15.5) % Neutrophils # (1.3-7.7) k/uL Monocytes # (0-1.0) k/uL PT (9.0-12.0) sec INR (<1.2) APTT (22.0-30.0) sec ABG pH (7.35-7.45) ABG pCO2 (35-45) mmHg ABG pO2 (83-108) mmHg ABG HCO3 (21-25) mmol/L ABG Total CO2 (19-24) mmol/L ABG O2 Saturation (94-97) % BUN (7-17) mg/dL Creatinine (0.52-1.04) mg/dL Glucose (74-99) mg/dL POC Glucose (mg/dL) 204 H (70-110) mg/dL Calcium (8.4-10.2) mg/dL AST (14-36) U/L ALT (4-34) U/L Total Protein (6.3-8.2) g/dL Albumin (3.5-5.0) g/dL TSH (0.465-4.680) mIU/L Crossmatch Microbiology - Last 24 Hours (Table) 03/28/23 23:20 Sputum Culture - Preliminary Sputum 03/29/23 08:00 Urine Culture - Preliminary Urine,Voided Assessment and Plan Assessment: Status-post right revision distal femoral replacing hinge for comminuted periprosthetic distal femur fracture on 03/28/23. Post-op day #2. Plan: - Appreciate medical and ICU management per multiple medical specialities inc luding pulmonology/critical care, nephrology, internal medicine. - Keep Prevena wound vac in place. Do not remove. Will leave hemovac drain in place. She may weight bear to tolerance on right lower extremity once extubated. - 2 doses post-op antibiotics complete. Doxycycline 100mg BID will be initiated for wound healing prophylaxis. - Patient was started on Heparin per ICU team. - We will follow patient very closely and make recommendations as needed.
[2023-03-30] MEDS ORDERED: SODIUM CHLORIDE 0.9% 80 ML with fentaNYL (PF) 1,000 MCG IV SCH ×2 (10:00)
[2023-03-30] MEDS ORDERED: SODIUM CHLORIDE 0.9% 1,000 ML IV SCH (10:15)
[2023-03-30 10:19] LABS: Glucose,Whole Blood 196 mg/dL (70-110)
[2023-03-30] MEDS: NOREPINEPHRINE 32 MG in SODIUM CHLORIDE 0.9% 218 ML IV SCH (10:20)
[2023-03-30 11:04] LABS: Glucose,Whole Blood 169 mg/dL (70-110)
--- NOTE | 2023-03-30 11:20 | P.PN ---
Subjective Patient is seen in follow-up for acute kidney injury on chronic kidney disease. Renal function stable. Potassium level normal. On insulin drip. On Levophed. Urine output now 75-100 mL an hour. She did receive 80 mg IV Lasix yesterday. Intubated. Vital signs are stable. On Levophed. General: Resting in bed. HEENT: Intubated. LUNGS: Scattered rhonchi. HEART: Rate and Rhythm are regular. ABDOMEN: Soft, no distention. EXTREMITITES: Trace edema. Objective - Vital Signs Vital signs: Vital Signs Temp 98.5 F 03/30/23 08:00 Pulse 85 03/30/23 11:00 Resp 34 H 03/30/23 11:00 BP 128/57 03/29/23 22:00 Pulse Ox 95 03/30/23 11:00 FiO2 60 03/30/23 08:27 Intake & Output 03/29/23 03/30/23 03/30/23 18:59 06:59 18:59 Intake Total 2446.531 1742.359 780.007 Output Total 235 860 450 Balance 2211.531 882.359 330.007 Weight 115.666 kg Intake: IV 900 600 300 Dextrose 5% in Water 1, 500 600 150 000 ml @ 50 mls/hr IV . Q23H [facility] with Sodium Bicarb (1 Meq/ml) 150 ml Rx#:[id number] Lactated Ringers 1,000 ml 400 @ 100 mls/hr IV .Q10H [facility] Rx#:[id number] Sodium Chloride 0.9% 1, 100 000 ml @ 50 mls/hr IV . Q20H [facility] Rx#:[id number] cefTRIAXone 1 gm In 50 Sodium Chloride 0.9% 50 ml @ 100 mls/hr IVPB Q12HR [facility] Rx#:[id number] Intake, IV Titration 1086.531 795.359 274.007 Amount Cisatracurium 200 mg In 77.555 27.008 35.278 Sodium Chloride 0.9% 180 ml @ 1 MCG/KG/MIN 6.94 mls/hr IV .Q24H [facility] Rx#: [id number] Heparin Sod,Pork in 0.45% 73.37 169.278 NaCl 25,000 unit In 0.45 % NaCl 1 250ml.bag @ 8.65 UNITS/KG/HR 10.005 mls/ hr IV .Q24H [facility] Rx#: [id number] Insulin Regular 100 unit 103.719 148.307 28.396 In Sodium Chloride 0.9% 100 ml @ Titrate IV .Q0M [facility] Rx#:[id number] Norepinephrine 32 mg In 35.936 67.383 32.207 Sodium Chloride 0.9% 218 ml @ 0.03 MCG/KG/MIN 1. 627 mls/hr IV .Q24H [facility] Rx#:[id number] Norepinephrine 4 mg In 293.956 Sodium Chloride 0.9% 250 ml @ 0.03 MCG/KG/MIN 13. 221 mls/hr IV .G24P24F [facility] Rx#:[id number] Vasopressin 20 unit In 24.710 Sodium Chloride 0.9% 50 ml @ 0.03 UNITS/MIN 4.59 mls/hr IV .Q11H7M [facility] Rx# :[id number] ceFAZolin 2 gm In Sodium 50 Chloride 0.9% 50 ml @ 100 mls/hr IVPB Q8HR [facility] Rx# :[id number] propofoL 1,000 mg In 427.285 383.383 178.126 Empty Bag 1 bag @ 15 MCG/ KG/MIN 10.41 mls/hr IV . Q9H37M [facility] Rx#:[id number] Tube Feeding 60 257 116 Blood Product 310 Rc As-1 Unit 310 [id number] Other 90 90 90 Output: Drainage 60 Right Knee 60 Urine 235 800 450 Other: Voiding Method Indwelling Catheter Indwelling Catheter Indwelling Catheter ABP, PAP, CO, CI - Last Documented Arterial Blood Pressure 122/44 - Labs CBC & Chem 7: 03/30/23 03:57 03/30/23 03:57 Labs: Abnormal Lab Results - Last 24 Hours (Table) 03/28/23 03/29/23 03/29/23 Range/Units 21:37 10:45 10:48 WBC (3.8-10.6) k/uL RBC (3.80-5.40) m/uL Hgb (11.4-16.0) gm/dL Hct (34.0-46.0) % RDW (11.5-15.5) % Neutrophils # (1.3-7.7) k/uL PT 12.1 H (9.0-12.0) sec INR 1.2 H (<1.2) APTT (22.0-30.0) sec ABG pH (7.35-7.45) ABG pCO2 (35-45) mmHg ABG pO2 (83-108) mmHg ABG HCO3 (21-25) mmol/L ABG Total CO2 (19-24) mmol/L ABG O2 Saturation (94-97) % BUN (7-17) mg/dL Creatinine (0.52-1.04) mg/dL Glucose (74-99) mg/dL POC Glucose (mg/dL) 296 H (70-110) mg/dL Calcium (8.4-10.2) mg/dL AST (14-36) U/L ALT (4-34) U/L Total Protein (6.3-8.2) g/dL Albumin (3.5-5.0) g/dL Crossmatch See Detail 03/29/23 03/29/23 03/29/23 Range/Units 11:23 12:16 13:08 WBC (3.8-10.6) k/uL RBC (3.80-5.40) m/uL Hgb (11.4-16.0) gm/dL Hct (34.0-46.0) % RDW (11.5-15.5) % Neutrophils # (1.3-7.7) k/uL PT (9.0-12.0) sec INR (<1.2) APTT (22.0-30.0) sec ABG pH (7.35-7.45) ABG pCO2 (35-45) mmHg ABG pO2 (83-108) mmHg ABG HCO3 (21-25) mmol/L ABG Total CO2 (19-24) mmol/L ABG O2 Saturation (94-97) % BUN (7-17) mg/dL Creatinine (0.52-1.04) mg/dL Glucose (74-99) mg/dL POC Glucose (mg/dL) 363 H 365 H 346 H (70-110) mg/dL Calcium (8.4-10.2) mg/dL AST (14-36) U/L ALT (4-34) U/L Total Protein (6.3-8.2) g/dL Albumin (3.5-5.0) g/dL Crossmatch 03/29/23 03/29/23 03/29/23 Range/Units 14:05 14:57 15:08 WBC (3.8-10.6) k/uL RBC (3.80-5.40) m/uL Hgb (11.4-16.0) gm/dL Hct (34.0-46.0) % RDW (11.5-15.5) % Neutrophils # (1.3-7.7) k/uL PT (9.0-12.0) sec INR (<1.2) APTT (22.0-30.0) sec ABG pH 7.15 L* (7.35-7.45) ABG pCO2 64 H (35-45) mmHg ABG pO2 134 H (83-108) mmHg ABG HCO3 (21-25) mmol/L ABG Total CO2 (19-24) mmol/L ABG O2 Saturation 98.8 H (94-97) % BUN (7-17) mg/dL Creatinine (0.52-1.04) mg/dL Glucose (74-99) mg/dL POC Glucose (mg/dL) 358 H 214 H (70-110) mg/dL Calcium (8.4-10.2) mg/dL AST (14-36) U/L ALT (4-34) U/L Total Protein (6.3-8.2) g/dL Albumin (3.5-5.0) g/dL Crossmatch 03/29/23 03/29/23 03/29/23 Range/Units 16:03 16:28 17:00 WBC 14.7 H (3.8-10.6) k/uL RBC 2.74 L (3.80-5.40) m/uL Hgb 8.1 L (11.4-16.0) gm/dL Hct 24.4 L (34.0-46.0) % RDW (11.5-15.5) % Neutrophils # (1.3-7.7) k/uL PT (9.0-12.0) sec INR (<1.2) APTT (22.0-30.0) sec ABG pH 7.26 L (7.35-7.45) ABG pCO2 57 H (35-45) mmHg ABG pO2 (83-108) mmHg ABG HCO3 26 H (21-25) mmol/L ABG Total CO2 27 H (19-24) mmol/L ABG O2 Saturation 98.0 H (94-97) % BUN (7-17) mg/dL Creatinine (0.52-1.04) mg/dL Glucose (74-99) mg/dL POC Glucose (mg/dL) 242 H (70-110) mg/dL Calcium (8.4-10.2) mg/dL AST (14-36) U/L ALT (4-34) U/L Total Protein (6.3-8.2) g/dL Albumin (3.5-5.0) g/dL Crossmatch 03/29/23 03/29/23 03/29/23 Range/Units 17:04 18:03 18:59 WBC (3.8-10.6) k/uL RBC (3.80-5.40) m/uL Hgb (11.4-16.0) gm/dL Hct (34.0-46.0) % RDW (11.5-15.5) % Neutrophils # (1.3-7.7) k/uL PT (9.0-12.0) sec INR (<1.2) APTT (22.0-30.0) sec ABG pH (7.35-7.45) ABG pCO2 (35-45) mmHg ABG pO2 (83-108) mmHg ABG HCO3 (21-25) mmol/L ABG Total CO2 (19-24) mmol/L ABG O2 Saturation (94-97) % BUN (7-17) mg/dL Creatinine (0.52-1.04) mg/dL Glucose (74-99) mg/dL POC Glucose (mg/dL) 276 H 225 H 213 H (70-110) mg/dL Calcium (8.4-10.2) mg/dL AST (14-36) U/L ALT (4-34) U/L Total Protein (6.3-8.2) g/dL Albumin (3.5-5.0) g/dL Crossmatch 03/29/23 03/29/23 03/29/23 Range/Units 19:00 19:58 21:00 WBC (3.8-10.6) k/uL RBC (3.80-5.40) m/uL Hgb (11.4-16.0) gm/dL Hct (34.0-46.0) % RDW (11.5-15.5) % Neutrophils # (1.3-7.7) k/uL PT (9.0-12.0) sec INR (<1.2) APTT (22.0-30.0) sec ABG pH (7.35-7.45) ABG pCO2 (35-45) mmHg ABG pO2 (83-108) mmHg ABG HCO3 (21-25) mmol/L ABG Total CO2 (19-24) mmol/L ABG O2 Saturation (94-97) % BUN 51 H (7-17) mg/dL Creatinine 2.37 H (0.52-1.04) mg/dL Glucose 181 H (74-99) mg/dL POC Glucose (mg/dL) 185 H 153 H (70-110) mg/dL Calcium 7.6 L (8.4-10.2) mg/dL AST (14-36) U/L ALT (4-34) U/L Total Protein (6.3-8.2) g/dL Albumin (3.5-5.0) g/dL Crossmatch 03/29/23 03/29/23 03/29/23 Range/Units 21:59 23:13 23:59 WBC (3.8-10.6) k/uL RBC (3.80-5.40) m/uL Hgb (11.4-16.0) gm/dL Hct (34.0-46.0) % RDW (11.5-15.5) % Neutrophils # (1.3-7.7) k/uL PT (9.0-12.0) sec INR (<1.2) APTT (22.0-30.0) sec ABG pH (7.35-7.45) ABG pCO2 (35-45) mmHg ABG pO2 (83-108) mmHg ABG HCO3 (21-25) mmol/L ABG Total CO2 (19-24) mmol/L ABG O2 Saturation (94-97) % BUN (7-17) mg/dL Creatinine (0.52-1.04) mg/dL Glucose (74-99) mg/dL POC Glucose (mg/dL) 131 H 175 H 219 H (70-110) mg/dL Calcium (8.4-10.2) mg/dL AST (14-36) U/L ALT (4-34) U/L Total Protein (6.3-8.2) g/dL Albumin (3.5-5.0) g/dL Crossmatch 03/30/23 03/30/23 03/30/23 Range/Units 00:00 01:13 02:15 WBC (3.8-10.6) k/uL RBC (3.80-5.40) m/uL Hgb (11.4-16.0) gm/dL Hct (34.0-46.0) % RDW (11.5-15.5) % Neutrophils # (1.3-7.7) k/uL PT (9.0-12.0) sec INR (<1.2) APTT 40.6 H (22.0-30.0) sec ABG pH (7.35-7.45) ABG pCO2 (35-45) mmHg ABG pO2 (83-108) mmHg ABG HCO3 (21-25) mmol/L ABG Total CO2 (19-24) mmol/L ABG O2 Saturation (94-97) % BUN (7-17) mg/dL Creatinine (0.52-1.04) mg/dL Glucose (74-99) mg/dL POC Glucose (mg/dL) 222 H 212 H (70-110) mg/dL Calcium (8.4-10.2) mg/dL AST (14-36) U/L ALT (4-34) U/L Total Protein (6.3-8.2) g/dL Albumin (3.5-5.0) g/dL Crossmatch 03/30/23 03/30/23 03/30/23 Range/Units 03:07 03:57 03:57 WBC 14.0 H (3.8-10.6) k/uL RBC 2.99 L (3.80-5.40) m/uL Hgb 8.8 L (11.4-16.0) gm/dL Hct 26.3 L (34.0-46.0) % RDW 15.6 H (11.5-15.5) % Neutrophils # 11.4 H (1.3-7.7) k/uL PT (9.0-12.0) sec INR (<1.2) APTT (22.0-30.0) sec ABG pH (7.35-7.45) ABG pCO2 (35-45) mmHg ABG pO2 (83-108) mmHg ABG HCO3 (21-25) mmol/L ABG Total CO2 (19-24) mmol/L ABG O2 Saturation (94-97) % BUN 55 H (7-17) mg/dL Creatinine 2.43 H (0.52-1.04) mg/dL Glucose 163 H (74-99) mg/dL POC Glucose (mg/dL) 185 H (70-110) mg/dL Calcium (8.4-10.2) mg/dL AST 3981 H (14-36) U/L ALT 375 H (4-34) U/L Total Protein 4.7 L (6.3-8.2) g/dL Albumin 2.8 L (3.5-5.0) g/dL Crossmatch 03/30/23 03/30/23 03/30/23 Range/Units 03:57 04:52 05:35 WBC (3.8-10.6) k/uL RBC (3.80-5.40) m/uL Hgb (11.4-16.0) gm/dL Hct (34.0-46.0) % RDW (11.5-15.5) % Neutrophils # (1.3-7.7) k/uL PT (9.0-12.0) sec INR (<1.2) APTT (22.0-30.0) sec ABG pH 7.31 L (7.35-7.45) ABG pCO2 55 H (35-45) mmHg ABG pO2 72 L (83-108) mmHg ABG HCO3 28 H (21-25) mmol/L ABG Total CO2 30 H (19-24) mmol/L ABG O2 Saturation (94-97) % BUN (7-17) mg/dL Creatinine (0.52-1.04) mg/dL Glucose (74-99) mg/dL POC Glucose (mg/dL) 175 H 163 H (70-110) mg/dL Calcium (8.4-10.2) mg/dL AST (14-36) U/L ALT (4-34) U/L Total Protein (6.3-8.2) g/dL Albumin (3.5-5.0) g/dL Crossmatch 03/30/23 03/30/23 03/30/23 Range/Units 06:12 06:57 07:58 WBC (3.8-10.6) k/uL RBC (3.80-5.40) m/uL Hgb (11.4-16.0) gm/dL Hct (34.0-46.0) % RDW (11.5-15.5) % Neutrophils # (1.3-7.7) k/uL PT (9.0-12.0) sec INR (<1.2) APTT 66.5 H (22.0-30.0) sec ABG pH (7.35-7.45) ABG pCO2 (35-45) mmHg ABG pO2 (83-108) mmHg ABG HCO3 (21-25) mmol/L ABG Total CO2 (19-24) mmol/L ABG O2 Saturation (94-97) % BUN (7-17) mg/dL Creatinine (0.52-1.04) mg/dL Glucose (74-99) mg/dL POC Glucose (mg/dL) 151 H 136 H (70-110) mg/dL Calcium (8.4-10.2) mg/dL AST (14-36) U/L ALT (4-34) U/L Total Protein (6.3-8.2) g/dL Albumin (3.5-5.0) g/dL Crossmatch 03/30/23 03/30/23 03/30/23 Range/Units 08:01 09:01 10:17 WBC (3.8-10.6) k/uL RBC (3.80-5.40) m/uL Hgb (11.4-16.0) gm/dL Hct (34.0-46.0) % RDW (11.5-15.5) % Neutrophils # (1.3-7.7) k/uL PT (9.0-12.0) sec INR (<1.2) APTT (22.0-30.0) sec ABG pH (7.35-7.45) ABG pCO2 (35-45) mmHg ABG pO2 (83-108) mmHg ABG HCO3 (21-25) mmol/L ABG Total CO2 (19-24) mmol/L ABG O2 Saturation (94-97) % BUN (7-17) mg/dL Creatinine (0.52-1.04) mg/dL Glucose (74-99) mg/dL POC Glucose (mg/dL) 189 H 204 H 196 H (70-110) mg/dL Calcium (8.4-10.2) mg/dL AST (14-36) U/L ALT (4-34) U/L Total Protein (6.3-8.2) g/dL Albumin (3.5-5.0) g/dL Crossmatch 03/30/23 Range/Units 11:01 WBC (3.8-10.6) k/uL RBC (3.80-5.40) m/uL Hgb (11.4-16.0) gm/dL Hct (34.0-46.0) % RDW (11.5-15.5) % Neutrophils # (1.3-7.7) k/uL PT (9.0-12.0) sec INR (<1.2) APTT (22.0-30.0) sec ABG pH (7.35-7.45) ABG pCO2 (35-45) mmHg ABG pO2 (83-108) mmHg ABG HCO3 (21-25) mmol/L ABG Total CO2 (19-24) mmol/L ABG O2 Saturation (94-97) % BUN (7-17) mg/dL Creatinine (0.52-1.04) mg/dL Glucose (74-99) mg/dL POC Glucose (mg/dL) 169 H (70-110) mg/dL Calcium (8.4-10.2) mg/dL AST (14-36) U/L ALT (4-34) U/L Total Protein (6.3-8.2) g/dL Albumin (3.5-5.0) g/dL Crossmatch Microbiology - Last 24 Hours (Table) 03/28/23 23:20 Sputum Culture - Preliminary Sputum 03/29/23 08:00 Urine Culture - Preliminary Urine,Voided Assessment and Plan Plan: Assessment: 1. Acute kidney injury secondary to hemodynamic ATN/shock. Creatinine 1.29 on admission and is 2.43 today. Nonoliguric. No hydronephrosis noted on kidney ultrasound. Left kidney not visualized. 2. Chronic kidney disease stage IIIa with baseline creatinine 1-1.2 secondary to nephrosclerosis/diabetic kidney disease. 3. History of hypercalcemia maintained on Sensipar. Calcium 7.9 today. 4. Acute blood loss anemia status post blood transfusions this admission. Hemoglobin better. 5. Hyperkalemia secondary to acute kidney injury, hyperglycemia, acidosis and acute blood loss. Improved with medical management. 6. Status post knee revision 03/28/2023. 7. Diabetes mellitus. 8. Questionable PE with severe pulmonary hypertension and moderate to severe tricuspid regurgitation. On heparin drip. Plan: Maintain tube feeds. Hep-Lock IV fluids. Wean vasopressors as able. Blood sugar control. Currently on insulin drip. Status post IV Lasix given 03/29/2023. Continue to monitor renal function and urine output. Avoid nephrotoxins. Continue to hold Sensipar for now.
[2023-03-30 12:22] LABS: Glucose,Whole Blood 113 mg/dL (70-110)
[2023-03-30] MEDS: SODIUM CHLORIDE 0.9% 80 ML with fentaNYL (PF) 1,000 MCG IV SCH ×4 (12:30→21:47)
[2023-03-30 13:10] LABS: Glucose,Whole Blood 135 mg/dL (70-110)
[2023-03-30 14:09] LABS: Glucose,Whole Blood 195 mg/dL (70-110)
--- NOTE | 2023-03-30 14:42 | P.PN ---
Subjective Progress Note Date: 03/30/23 Principal diagnosis: Acute hypoxic respiratory failure post repair of right comminuted fracture of distal femur adjacent to the knee prosthesis, postoperative day #2 I'm seeing this patient in new consultation today 03/29/2023 following a repair of a comminuted periprosthetic distal femur fracture. Patient is a 72-year-old white female with significant past medical history of previous right total knee replacement on 07/23/2022, diabetes mellitus, hypertension, obstructive sleep apnea, bilateral mastectomy for suspected breast cancer, and is an ex-smoker. Patient presented to the emergency room on 03/26/2023 after she tripped over a cord at the [employer], and landed on her right knee. A CT of the right femur without contrast showed a comminuted fracture of the distal metadiaphyseal femur adjacent to the knee prosthesis, and there was displacement of the distal fra cture fragment from the proximal fracture. She was admitted to the hospital, and taken to the operating room yesterday evening. Patient reportedly had stabilization of the distal femur fracture with revision of the right knee prosthesis. Intraoperatively, the patient became hypotensive requiring multiple fluid boluses with a total of 2.8 L of lactated Ringer's, 1 L albumin, and was subsequently started on a Woody-Synephrine infusion. Patient's hemoglobin level was reportedly 6.8 intraoperatively, and the patient received a total of 2 units PRBC. Patient was then transferred to the intensive care unit in critical condition. Patient is currently lying in bed, intubated to the mechanical ventilator. Initial ventilator settings were assist control, respiratory rate 14, tidal volume 350, FiO2 100%, PEEP of 5. ABGs done on these settings showed a pO2 of 108, pCO2 of 75, pH of 7.07. The patient's respiratory rate was increased to 20 and tidal volume to 400. Peak pressures are currently 31 and vital pressures are 18. Propofol infusing for sedation at 30 mcg/kg/m. Patient is synchronous mechanical ventilator. Postoperative chest x-ray shows endotracheal tube above the radha, cardiomegaly, and small left pleural effusion. So far, the patient is still hypotensive, and will be given an additional liter of normal saline. Patient was transitioned to Levophed, and is currently infusing at 0.28 mics per kilogram per minute. A left radial arterial line was inserted. There is a i ndwelling urinary catheter in place, with only about 10 ML's of urine since surgery. Patient does have a Hemovac from the right postsurgical knee draining small amount of sanguinous output. Patient does have a right knee immobilizer in place. There is postsurgical wound VAC in place. Dilaudid is on for analgesia. Postoperative CBC after 2 units PRBC transfusion shows a WBC count of 25, hemoglobin 9.1, hematocrit 28.7, platelets 405. BMP postoperatively shows a sodium 136, potassium 6.9, chloride 100, serum CO2 22, BUN 34, creatinine 1.74, glucose 232. LFTs are elevated with an AST of 1044 and ALT of 154. Patient's hyperkalemia will be treated with 10 units regular insulin, 1 amp D50 W, 1 g calcium gluconate, and albuterol. Lactic acid level is 4.2, and is receiving an additional liter of normal saline. Patient will be monitored in the intensive care unit. Reevaluated today on 03/30/2023, patient remains in the ICU, intubated and mechanically ventilated. Patient is now on assist control rate of 50 to tidal volume 420 FiO2 60% PEEP of 8. ABG showed a pO2 of 72 pCO2 55 pH of 7.31, hence I was able to increase the rate to 34 FiO2 cut down to 55% and The PEEP to 8. remains on propofol at 50 mcg/kg/m, norepinephrine 0.12 mcg/kg/m Nimbex at 0.5 mcg/kg/m insulin at 14 units an hour and she is on bicarb drip which I discontinued. I have also recommended stopping Nimbex and transitioning the patient to fentanyl instead. Again I'm planning to discontinue Nimbex today and discontinue bicarb. Renal functioning is a bit worse today compared to yesterday, creatinine is 2.43 and it was 2.37. Baseline is 1.29. Hence this prohibits us from performing a CT angiogram of the chest, and I'm recommending that we continue heparin. WBC count today is 14 hemoglobin is 8.8. Her PTT is therapeutic at 66.5. Liver enzymes are elevated with elevated AST of 3981 and elevated ALT of 375 which indicates that the patient may have a shocked liver. Chest x-ray showed small pleural effusion and small areas of left lower lobe atelectasis without pneumonia. Lower extremities Doppler is negative for DVT Objective - Vital Signs Vital signs: Vital Signs Temp 99.2 F 03/30/23 12:00 Pulse 99 03/30/23 13:00 Resp 34 H 03/30/23 13:00 BP 127/47 03/30/23 13:00 Pulse Ox 95 03/30/23 13:00 FiO2 55 03/30/23 12:08 Intake & Output 03/29/23 03/30/23 03/30/23 18:59 06:59 18:59 Intake Total 2446.531 4645.020 6044.700 Output Total 235 860 650 Balance 2211.531 882.359 370.700 Weight 115.666 kg 129.4 kg Intake: IV 900 600 400 Dextrose 5% in Water 1, 500 600 150 000 ml @ 50 mls/hr IV . Q23H [facility] with Sodium Bicarb (1 Meq/ml) 150 ml Rx#:[id number] Lactated Ringers 1,000 ml 400 @ 100 mls/hr IV .Q10H [facility] Rx#:[id number] Sodium Chloride 0.9% 1, 200 000 ml @ 50 mls/hr IV . Q20H [facility] Rx#:[id number] cefTRIAXone 1 gm In 50 Sodium Chloride 0.9% 50 ml @ 100 mls/hr IVPB Q12HR [facility] Rx#:[id number] Intake, IV Titration 1086.531 795.359 414.700 Amount Cisatracurium 200 mg In 77.555 27.008 51.067 Sodium Chloride 0.9% 180 ml @ 1 MCG/KG/MIN 6.94 mls/hr IV .Q24H [facility] Rx#: [id number] Heparin Sod,Pork in 0.45% 73.37 169.278 NaCl 25,000 unit In 0.45 % NaCl 1 250ml.bag @ 8.65 UNITS/KG/HR 10.005 mls/ hr IV .Q24H [facility] Rx#: [id number] Insulin Regular 100 unit 103.719 148.307 57.875 In Sodium Chloride 0.9% 100 ml @ Titrate IV .Q0M [facility] Rx#:[id number] Norepinephrine 32 mg In 35.936 67.383 32.207 Sodium Chloride 0.9% 218 ml @ 0.03 MCG/KG/MIN 1. 627 mls/hr IV .Q24H [facility] Rx#:[id number] Norepinephrine 4 mg In 293.956 Sodium Chloride 0.9% 250 ml @ 0.03 MCG/KG/MIN 13. 221 mls/hr IV .[id number] [facility] Rx#:[id number] Sodium Chloride 0.9% 80 2.892 ml @ 0.5 MCG/KG/HR 5.783 mls/hr IV .[id number] [facility] with fentaNYL (PF) 1,000 mcg Rx#:[id number] Vasopressin 20 unit In 24.710 Sodium Chloride 0.9% 50 ml @ 0.03 UNITS/MIN 4.59 mls/hr IV .Q11H7M [facility] Rx# :[id number] ceFAZolin 2 gm In Sodium 50 Chloride 0.9% 50 ml @ 100 mls/hr IVPB Q8HR [facility] Rx# :[id number] propofoL 1,000 mg In 427.285 383.383 270.659 Empty Bag 1 bag @ 15 MCG/ KG/MIN 10.41 mls/hr IV . Q9H37M [facility] Rx#:[id number] Tube Feeding 60 257 116 Blood Product 310 Rc As-1 Unit 310 [id number] Other 90 90 90 Output: Drainage 60 Right Knee 60 Urine 235 800 650 Other: Voiding Method Indwelling Catheter Indwelling Catheter Indwelling Catheter ABP, PAP, CO, CI - Last Documented Arterial Blood Pressure 134/51 - Exam Physical Exam: Revealed a 72-year-old female sedated, intubated, being ventilated, on Nimbex, and propofol, however Nimbex would be changed to fentanyl Head: Atraumatic, normocephalic. HEENT:[Neck is supple.] [No neck masses.] [No thyromegaly.] [No JVD.] Left subclavian central line is noted. Chest: [Fine crackles at the bases. Symmetrical chest expansion, no rhonchi no wheezes Cardiac Exam: [Normal S1 and S2, no S3 gallop, no murmur.] Abdomen: [Obese, Soft, nontender, no megaly, no rebound, no guarding, normal bowel sounds.] Extremities: [No clubbing, left knee is immobilized. Trace of bipedal edema. Neurological Exam: Could not assess patient is sedated and paralyzed. Psychiatric: Could not be assessed patient is sedated and on Nimbex. - Labs CBC & Chem 7: 03/30/23 03:57 03/30/23 03:57 Labs: Abnormal Lab Results - Last 24 Hours (Table) 03/29/23 03/29/23 03/29/23 Range/Units 10:45 14:57 15:08 WBC (3.8-10.6) k/uL RBC (3.80-5.40) m/uL Hgb (11.4-16.0) gm/dL Hct (34.0-46.0) % RDW (11.5-15.5) % Neutrophils # (1.3-7.7) k/uL APTT (22.0-30.0) sec ABG pH 7.15 L* (7.35-7.45) ABG pCO2 64 H (35-45) mmHg ABG pO2 134 H (83-108) mmHg ABG HCO3 (21-25) mmol/L ABG Total CO2 (19-24) mmol/L ABG O2 Saturation 98.8 H (94-97) % BUN (7-17) mg/dL Creatinine (0.52-1.04) mg/dL Glucose (74-99) mg/dL POC Glucose (mg/dL) 214 H (70-110) mg/dL Calcium (8.4-10.2) mg/dL AST (14-36) U/L ALT (4-34) U/L Total Protein (6.3-8.2) g/dL Albumin (3.5-5.0) g/dL Crossmatch See Detail 03/29/23 03/29/23 03/29/23 Range/Units 16:03 16:28 17:00 WBC 14.7 H (3.8-10.6) k/uL RBC 2.74 L (3.80-5.40) m/uL Hgb 8.1 L (11.4-16.0) gm/dL Hct 24.4 L (34.0-46.0) % RDW (11.5-15.5) % Neutrophils # (1.3-7.7) k/uL APTT (22.0-30.0) sec ABG pH 7.26 L (7.35-7.45) ABG pCO2 57 H (35-45) mmHg ABG pO2 (83-108) mmHg ABG HCO3 26 H (21-25) mmol/L ABG Total CO2 27 H (19-24) mmol/L ABG O2 Saturation 98.0 H (94-97) % BUN (7-17) mg/dL Creatinine (0.52-1.04) mg/dL Glucose (74-99) mg/dL POC Glucose (mg/dL) 242 H (70-110) mg/dL Calcium (8.4-10.2) mg/dL AST (14-36) U/L ALT (4-34) U/L Total Protein (6.3-8.2) g/dL Albumin (3.5-5.0) g/dL Crossmatch 03/29/23 03/29/23 03/29/23 Range/Units 17:04 18:03 18:59 WBC (3.8-10.6) k/uL RBC (3.80-5.40) m/uL Hgb (11.4-16.0) gm/dL Hct (34.0-46.0) % RDW (11.5-15.5) % Neutrophils # (1.3-7.7) k/uL APTT (22.0-30.0) sec ABG pH (7.35-7.45) ABG pCO2 (35-45) mmHg ABG pO2 (83-108) mmHg ABG HCO3 (21-25) mmol/L ABG Total CO2 (19-24) mmol/L ABG O2 Saturation (94-97) % BUN (7-17) mg/dL Creatinine (0.52-1.04) mg/dL Glucose (74-99) mg/dL POC Glucose (mg/dL) 276 H 225 H 213 H (70-110) mg/dL Calcium (8.4-10.2) mg/dL AST (14-36) U/L ALT (4-34) U/L Total Protein (6.3-8.2) g/dL Albumin (3.5-5.0) g/dL Crossmatch 03/29/23 03/29/23 03/29/23 Range/Units 19:00 19:58 21:00 WBC (3.8-10.6) k/uL RBC (3.80-5.40) m/uL Hgb (11.4-16.0) gm/dL Hct (34.0-46.0) % RDW (11.5-15.5) % Neutrophils # (1.3-7.7) k/uL APTT (22.0-30.0) sec ABG pH (7.35-7.45) ABG pCO2 (35-45) mmHg ABG pO2 (83-108) mmHg ABG HCO3 (21-25) mmol/L ABG Total CO2 (19-24) mmol/L ABG O2 Saturation (94-97) % BUN 51 H (7-17) mg/dL Creatinine 2.37 H (0.52-1.04) mg/dL Glucose 181 H (74-99) mg/dL POC Glucose (mg/dL) 185 H 153 H (70-110) mg/dL Calcium 7.6 L (8.4-10.2) mg/dL AST (14-36) U/L ALT (4-34) U/L Total Protein (6.3-8.2) g/dL Albumin (3.5-5.0) g/dL Crossmatch 03/29/23 03/29/23 03/29/23 Range/Units 21:59 23:13 23:59 WBC (3.8-10.6) k/uL RBC (3.80-5.40) m/uL Hgb (11.4-16.0) gm/dL Hct (34.0-46.0) % RDW (11.5-15.5) % Neutrophils # (1.3-7.7) k/uL APTT (22.0-30.0) sec ABG pH (7.35-7.45) ABG pCO2 (35-45) mmHg ABG pO2 (83-108) mmHg ABG HCO3 (21-25) mmol/L ABG Total CO2 (19-24) mmol/L ABG O2 Saturation (94-97) % BUN (7-17) mg/dL Creatinine (0.52-1.04) mg/dL Glucose (74-99) mg/dL POC Glucose (mg/dL) 131 H 175 H 219 H (70-110) mg/dL Calcium (8.4-10.2) mg/dL AST (14-36) U/L ALT (4-34) U/L Total Protein (6.3-8.2) g/dL Albumin (3.5-5.0) g/dL Crossmatch 03/30/23 03/30/23 03/30/23 Range/Units 00:00 01:13 02:15 WBC (3.8-10.6) k/uL RBC (3.80-5.40) m/uL Hgb (11.4-16.0) gm/dL Hct (34.0-46.0) % RDW (11.5-15.5) % Neutrophils # (1.3-7.7) k/uL APTT 40.6 H (22.0-30.0) sec ABG pH (7.35-7.45) ABG pCO2 (35-45) mmHg ABG pO2 (83-108) mmHg ABG HCO3 (21-25) mmol/L ABG Total CO2 (19-24) mmol/L ABG O2 Saturation (94-97) % BUN (7-17) mg/dL Creatinine (0.52-1.04) mg/dL Glucose (74-99) mg/dL POC Glucose (mg/dL) 222 H 212 H (70-110) mg/dL Calcium (8.4-10.2) mg/dL AST (14-36) U/L ALT (4-34) U/L Total Protein (6.3-8.2) g/dL Albumin (3.5-5.0) g/dL Crossmatch 03/30/23 03/30/23 03/30/23 Range/Units 03:07 03:57 03:57 WBC 14.0 H (3.8-10.6) k/uL RBC 2.99 L (3.80-5.40) m/uL Hgb 8.8 L (11.4-16.0) gm/dL Hct 26.3 L (34.0-46.0) % RDW 15.6 H (11.5-15.5) % Neutrophils # 11.4 H (1.3-7.7) k/uL APTT (22.0-30.0) sec ABG pH (7.35-7.45) ABG pCO2 (35-45) mmHg ABG pO2 (83-108) mmHg ABG HCO3 (21-25) mmol/L ABG Total CO2 (19-24) mmol/L ABG O2 Saturation (94-97) % BUN 55 H (7-17) mg/dL Creatinine 2.43 H (0.52-1.04) mg/dL Glucose 163 H (74-99) mg/dL POC Glucose (mg/dL) 185 H (70-110) mg/dL Calcium (8.4-10.2) mg/dL AST 3981 H (14-36) U/L ALT 375 H (4-34) U/L Total Protein 4.7 L (6.3-8.2) g/dL Albumin 2.8 L (3.5-5.0) g/dL Crossmatch 03/30/23 03/30/23 03/30/23 Range/Units 03:57 04:52 05:35 WBC (3.8-10.6) k/uL RBC (3.80-5.40) m/uL Hgb (11.4-16.0) gm/dL Hct (34.0-46.0) % RDW (11.5-15.5) % Neutrophils # (1.3-7.7) k/uL APTT (22.0-30.0) sec ABG pH 7.31 L (7.35-7.45) ABG pCO2 55 H (35-45) mmHg ABG pO2 72 L (83-108) mmHg ABG HCO3 28 H (21-25) mmol/L ABG Total CO2 30 H (19-24) mmol/L ABG O2 Saturation (94-97) % BUN (7-17) mg/dL Creatinine (0.52-1.04) mg/dL Glucose (74-99) mg/dL POC Glucose (mg/dL) 175 H 163 H (70-110) mg/dL Calcium (8.4-10.2) mg/dL AST (14-36) U/L ALT (4-34) U/L Total Protein (6.3-8.2) g/dL Albumin (3.5-5.0) g/dL Crossmatch 03/30/23 03/30/23 03/30/23 Range/Units 06:12 06:57 07:58 WBC (3.8-10.6) k/uL RBC (3.80-5.40) m/uL Hgb (11.4-16.0) gm/dL Hct (34.0-46.0) % RDW (11.5-15.5) % Neutrophils # (1.3-7.7) k/uL APTT 66.5 H (22.0-30.0) sec ABG pH (7.35-7.45) ABG pCO2 (35-45) mmHg ABG pO2 (83-108) mmHg ABG HCO3 (21-25) mmol/L ABG Total CO2 (19-24) mmol/L ABG O2 Saturation (94-97) % BUN (7-17) mg/dL Creatinine (0.52-1.04) mg/dL Glucose (74-99) mg/dL POC Glucose (mg/dL) 151 H 136 H (70-110) mg/dL Calcium (8.4-10.2) mg/dL AST (14-36) U/L ALT (4-34) U/L Total Protein (6.3-8.2) g/dL Albumin (3.5-5.0) g/dL Crossmatch 03/30/23 03/30/23 03/30/23 Range/Units 08:01 09:01 10:17 WBC (3.8-10.6) k/uL RBC (3.80-5.40) m/uL Hgb (11.4-16.0) gm/dL Hct (34.0-46.0) % RDW (11.5-15.5) % Neutrophils # (1.3-7.7) k/uL APTT (22.0-30.0) sec ABG pH (7.35-7.45) ABG pCO2 (35-45) mmHg ABG pO2 (83-108) mmHg ABG HCO3 (21-25) mmol/L ABG Total CO2 (19-24) mmol/L ABG O2 Saturation (94-97) % BUN (7-17) mg/dL Creatinine (0.52-1.04) mg/dL Glucose (74-99) mg/dL POC Glucose (mg/dL) 189 H 204 H 196 H (70-110) mg/dL Calcium (8.4-10.2) mg/dL AST (14-36) U/L ALT (4-34) U/L Total Protein (6.3-8.2) g/dL Albumin (3.5-5.0) g/dL Crossmatch 03/30/23 03/30/23 03/30/23 Range/Units 11:01 12:19 13:07 WBC (3.8-10.6) k/uL RBC (3.80-5.40) m/uL Hgb (11.4-16.0) gm/dL Hct (34.0-46.0) % RDW (11.5-15.5) % Neutrophils # (1.3-7.7) k/uL APTT (22.0-30.0) sec ABG pH (7.35-7.45) ABG pCO2 (35-45) mmHg ABG pO2 (83-108) mmHg ABG HCO3 (21-25) mmol/L ABG Total CO2 (19-24) mmol/L ABG O2 Saturation (94-97) % BUN (7-17) mg/dL Creatinine (0.52-1.04) mg/dL Glucose (74-99) mg/dL POC Glucose (mg/dL) 169 H 113 H 135 H (70-110) mg/dL Calcium (8.4-10.2) mg/dL AST (14-36) U/L ALT (4-34) U/L Total Protein (6.3-8.2) g/dL Albumin (3.5-5.0) g/dL Crossmatch 03/30/23 Range/Units 14:06 WBC (3.8-10.6) k/uL RBC (3.80-5.40) m/uL Hgb (11.4-16.0) gm/dL Hct (34.0-46.0) % RDW (11.5-15.5) % Neutrophils # (1.3-7.7) k/uL APTT (22.0-30.0) sec ABG pH (7.35-7.45) ABG pCO2 (35-45) mmHg ABG pO2 (83-108) mmHg ABG HCO3 (21-25) mmol/L ABG Total CO2 (19-24) mmol/L ABG O2 Saturation (94-97) % BUN (7-17) mg/dL Creatinine (0.52-1.04) mg/dL Glucose (74-99) mg/dL POC Glucose (mg/dL) 195 H (70-110) mg/dL Calcium (8.4-10.2) mg/dL AST (14-36) U/L ALT (4-34) U/L Total Protein (6.3-8.2) g/dL Albumin (3.5-5.0) g/dL Crossmatch Microbiology - Last 24 Hours (Table) 03/28/23 23:20 Gram Stain - Preliminary Sputum Sputum Culture - Preliminary 03/29/23 08:00 Urine Culture - Final Urine,Voided Assessment and Plan Assessment: Impression: Acute hypoxic, and hypercapnic respiratory failure, exact etiology is not clear, but strongly suspect either pulmonary embolism or fat embolism as a comp lication from a right comminuted fracture status post repair postoperative day #2 Hypotension, likely hypovolemic in nature or could be related to pulmonary embolism. Acute blood loss anemia patient received a 3 units of packed RBCs so far, hemoglobin is presently 8.8, no active bleeding noted. Acute kidney injury Acute lactic acidemia secondary to hypotension and hypoperfusion strongly doubt sepsis. Shock liver secondary to hypotension History of previous right total knee replacement 08/02/2022 Morbid obesity History of obstructive sleep apnea syndrome History of bilateral meniscectomies Ex-smoker Recommendation: Continue ventilatory support Continue hemodynamic support, presently on norepinephrine at 0.12 mcg/kg/m Continue heparin for now although the venous Doppler is negative, considering her renal functioning I would avoid CT angiogram of the chest for now. Until her renal functioning improves Discontinue Nimbex and replace with fentanyl for now Discontinue sodium bicarb. Continue nutritional support Continue GI and DVT prophylaxis Continue Rocephin for now check urine cultures and sputum cultures as well as blood cultures Continue IV insulin as per protocol Patient is not ready for any form of weaning at this point Patient remains critically ill. We will continue to follow. Critical care time is over 30 Overall prognosis remains guarded. Time with Patient: Greater than 30
[2023-03-30 15:10] LABS: Glucose,Whole Blood 162 mg/dL (70-110)
[2023-03-30 16:16] LABS: Glucose,Whole Blood 150 mg/dL (70-110)
[2023-03-30 17:01] LABS: Basophils % (A) 0 %; Eosinophils % (A) 0 %; HCT 25.9 % (34.0-46.0); HGB 8.8 gm/dL (11.4-16.0); Lymphocytes # (A) 1.5 k/uL (1.0-4.8); Lymphocytes % (A) 10 %; MCH 29.9 pg (25.0-35.0); MCHC 34.1 g/dL (31.0-37.0); MCV 87.6 fL (80.0-100.0); Mean Platelet Volume 8.4; Monocytes # (A) 0.9 k/uL (0-1.0); Monocytes % (A) 6 %; Neutrophils # (A) 12.9 k/uL (1.3-7.7); Neutrophils % (A) 84 %; Platelet Count 298 k/uL (150-450); RBC 2.95 m/uL (3.80-5.40); RDW 15.5 % (11.5-15.5); WBC 15.4 k/uL (3.8-10.6)
[2023-03-30 17:19] LABS: Albumin 2.6 g/dL (3.5-5.0); Calcium 7.8 mg/dL (8.4-10.2); Magnesium 1.8 mg/dL (1.6-2.3); Potassium 3.6 mmol/L (3.5-5.1); Total Bilirubin 0.8 mg/dL (0.2-1.3); Total Protein 4.6 g/dL (6.3-8.2)
[2023-03-30 17:31] LABS: Glucose,Whole Blood 119 mg/dL (70-110)
[2023-03-30 18:05] LABS: Glucose,Whole Blood 119 mg/dL (70-110)
[2023-03-30 19:24] LABS: Glucose,Whole Blood 177 mg/dL (70-110)
[2023-03-30] MEDS ORDERED: Potassium Replacement Protocol 1 EACH MISC MISCELLANE PRN (19:32)
[2023-03-30] MEDS ORDERED: POTASSIUM BICARBONATE/CIT AC 20 MEQ TABLET.EFF NG-TUBE SCH (20:00)
[2023-03-30] MEDS: SENNOSIDES-DOCUSATE SODIUM 1 EACH TAB PO SCH (20:01)
[2023-03-30] MEDS: OLANZapine 5 MG TAB PO SCH (20:02)
--- NOTE | 2023-03-30 20:39 | P.PN ---
Progress Note - Text Progress Note Date: 03/30/23 - Chief Complaint Right leg injury History of presenting complaint: very pleasant 72-year-old patient of Dr. Persaud. Chronic stable medical conditions include diabetes, hyperlipidemia, hypertension, primary osteoarthritis, peripheral neuropathy, bilateral breast cancer with bilateral mastectomy, IBS, diverticulosis, chronic low back arthritis. Anxiety depression. Diagnosis of ulcerative colitis for about 15 years. On Asacol 800 mg 3 times a day. In November 2020 did undergo coloscopy by Dr. Moreno. Normal- appearing colon. Patient does follow with Dr. Angi Stallings. On an average has about 10 bowel movements a day. Present for years. Patient today was at the [facility]. Troponin went and fell down. Computed tomography scan showing a comminuted fracture distal metaphyseal femur adjacent to the knee processes. Some external rotation. Right lower extremity - brace. Patient's able to get about the house.. No chest pain or palpitation. March 27: Reclining bed. Pain control. Oral intake fair. Pending surgery tomorrow. Discussed with patient has would've the bedside. March 15: Patient seen by me this morning prior to surgery. In bed. Comfortable. Nothing by mouth. Pending surgery this afternoon. March 29: ICU. Yesterday patient underwent right revision total knee replacement the distal femoral replacement age for periprosthetic distal femur fracture. Estimated blood loss was about 600 mL. In the perioperative area patient blood pressure was running low. Patient was transferred to the ICU. Patient did receive 2 units of blood yesterday. Today patient is intubated. FiO2 85% and a PEEP of 10. Drips include we will affect, propofol, Nimbex. Patient started IV heparin for underlying suspicion of pulmonary embolism. Accu-Cheks running high has put on insulin drip. Oral gastric tube. Patient's and 2 daughters at the bedside. Discussed at length. Patient renal function also worsened. Hyperkalemia. Given bicarbonate. Being followed by structural test engineer, nephrology. Another unit of blood pending. Hemoglobin this morning 6.7. Patient has increased right-sided heart pressures suspicious for therefore PE/fat embolism. March 30: ICU. Spiked a fever. Advair 250/50 5 and a PEEP of 8. On the ventilator. Sinus rhythm. Drips include Nimbex, propofol, IV heparin, IV insulin, IV norepinephrine. Right leg in a brace. IV ceftriaxone. Active Medications Hydrocodone Bitart/Acetaminophen (Hydrocodone/Apap 5-325mg 1 Each Tab) 1 each PO Q4HR PRN PRN Reason: Moderate Pain (Scale 4 to 6) Last Admin: 03/30/23 08:22 Dose: 1 each Albuterol/Ipratropium (Ipratropium-Albuterol 3 Ml Neb) 3 ml INHALATION RT-Q4H [facility] Last Admin: 03/30/23 20:33 Dose: 3 ml Artificial Tears (Artificial Tears-Hypromellose Drops 15 Ml Btl) 2 drops BOTH EYES Q4HR [facility] Last Admin: 03/30/23 19:58 Dose: Not Given Aspirin (Aspirin 81 Mg) 81 mg PO BID [facility] Last Admin: 03/30/23 20:01 Dose: 81 mg Chlorhexidine Gluconate (Chlorhexidine Gluconate 15 Ml Cup) 15 ml MUCOUS MEM BID [facility] Last Admin: 03/30/23 20:01 Dose: 15 ml Dextrose/Water (Dextrose 50% Syringe 50 Ml) 25 ml IVP PER PROTOCOL PRN; Protocol PRN Reason: Hypoglycemia Dextrose/Water (Dextrose 50% Syringe 50 Ml) 50 ml IVP PER PROTOCOL PRN; Protocol PRN Reason: Hypoglycemia Ferrous Sulfate (Ferrous Sulfate 325 Mg Tab) 325 mg PO DAILY [facility] Last Admin: 03/30/23 08:21 Dose: 325 mg Fluoxetine HCl (Fluoxetine Hcl 20 Mg Cap) 40 mg PO DAILY [facility] Last Admin: 03/30/23 08:22 Dose: 40 mg Heparin Sodium (Porcine) (Heparin Sodium 1,000 Un/Ml (10ml Vl)) 0 unit IV PER PROTOCOL PRN; Protocol PRN Reason: Low PTT Last Admin: 03/30/23 02:08 Dose: 2,892 unit Hydromorphone HCl (Hydromorphone 0.5 Mg/0.5 Ml Syringe) 0.125 mg IVP Q3HR PRN PRN Reason: Pain Scale 1 to 3 Hydromorphone HCl (Hydromorphone 0.5 Mg/0.5 Ml Syringe) 0.5 mg IVP Q3HR PRN PRN Reason: Pain Scale 7 to 10 Last Admin: 03/30/23 06:06 Dose: 0.5 mg Hydromorphone HCl (Hydromorphone 0.5 Mg/0.5 Ml Syringe) 0.25 mg IVP Q3HR PRN PRN Reason: Pain Scale 4 to 6 Propofol 1,000 mg/ IV Solution 100 mls @ 10.41 mls/hr IV .Q9H37M NENITA; Protocol Last Admin: 03/30/23 19:23 Dose: 50 mcg/kg/min, 34.7 mls/hr Insulin Human Regular 100 unit (/ Sodium Chloride) 100 mls @ 0 mls/hr IV .Q0M NENITA; Protocol Last Titration: 03/30/23 17:29 Dose: 0 units/hr, 0 mls/hr Heparin Sodium/Sodium Chloride (25,000 unit/ Sodium Chloride) 250 mls @ 10.005 mls/hr IV .Q24H NENITA; Protocol Last Titration: 03/30/23 19:30 Dose: 1,365 units/kg/hr, 1,578.841 mls/hr Norepinephrine Bitartrate 32 (mg/ Sodium Chloride) 250 mls @ 1.627 mls/hr IV .Q24H [facility]; Protocol Last Titration: 03/30/23 19:00 Dose: 0.11 mcg/kg/min, 5.964 mls/hr Ceftriaxone Sodium 1 gm/ (Sodium Chloride) 50 mls @ 100 mls/hr IVPB Q12HR [facility]; Protocol Last Admin: 03/30/23 20:01 Dose: 100 mls/hr Fentanyl Citrate 1,000 mcg/ (Sodium Chloride) 100 mls @ 5.783 mls/hr IV .[id number] [facility]; Protocol Last Titration: 03/30/23 17:30 Dose: 0.5 mcg/kg/hr, 5.783 mls/hr Lorazepam (Lorazepam 0.5 Mg Tab) 0.5 mg PO Q6HR PRN PRN Reason: Anxiety Miscellaneous Information (Potassium Replacement Protocol 1 Each Misc) 1 each MISCELLANE DAILY PRN; Protocol PRN Reason: Per Protocol Naloxone HCl (Naloxone 0.4 Mg/Ml 1 Ml Vial) 0.2 mg IV Q2M PRN PRN Reason: Opioid Reversal Olanzapine (Olanzapine 5 Mg Tab) 5 mg PO HS [facility] Last Admin: 03/30/23 20:02 Dose: 5 mg Ondansetron HCl (Ondansetron 4 Mg/2 Ml Vial) 4 mg IVP Q8HR PRN PRN Reason: Nausea And Vomiting Pantoprazole Sodium (Pantoprazole 40 Mg/10 Ml Vial) 40 mg IV DAILY [facility] Last Admin: 03/30/23 08:21 Dose: 40 mg Senna/Docusate Sodium (Sennosides-Docusate Sodium 1 Each Tab) 2 each PO HS [facility] Last Admin: 03/30/23 20:01 Dose: 2 each Past medical history to include: Diabetes mellitus type 2, hyperlipidemia, hypertension, osteoarthritis, peripheral neuropathy, bilateral breast cancer with bilateral mastectomies, ulcerative colitis-colonoscopy has shown normal colon and biopsy was negative., diverticulosis, chronic low back pain and arthritis, anxiety depression. COVID- 19 Social history: . Smoked for 41 years stopped in 2005. No alcohol Physical examination: VITAL SIGNS: T-max 100.9, 88, 32, 126/49, 96% on the ventilator/60% GENERAL: BMI 46.6, reclining intubated. OG tube EYES: Pupils equal. Conjunctiva normal. HEENT: External appearance of nose and ears normal, oral cavity OG tube NECK: JVD unable to assess; masses not palpable. HEART: First and second heart sounds are normal; no edema. LUNGS: Respiratory rate increased, decreased breath sounds ABDOMEN: Soft, nontender, liver spleen not palpable, no masses palpable. PSYCH: Sedated MUSCULAR skeletal: Evidence of OA especially in the hands . Right lower extremity in a brace INVESTIGATIONS, reviewed in the clinical context: March 30: White count 15.4 hemoglobin 8.8 platelets 298 potassium 3.6 BUN 53 creatinine 1.99 AST 1842 ALT 208 2-D echocardiogram: Moderate increased LVH. EF 50-55%. Severe right ventricle dilatation generalized right ventricle hypokinesis. Severe pulmonary hypertension. Moderate to severe tricuspid regurgitation. Ultrasound venous Doppler lower extremity: Limited views. No obvious DVT. Ultrasound kidney: Right kidney: Mild renal cortical thinning. Left kidney obscured. March 29: White count 20.6 hemoglobin 6.7 platelets 300 ABG: PH 7.13 pCO2 62. Potassium 5.1 BUN 40 creatinine 1.91 blood glucose 372 UA: Noted March 28: White count 9.1 hemoglobin 9.5 potassium 4.4 BUN 36 creatinine 1.37 White count 12.2 hemoglobin 11.5 platelets 510 sodium 140 potassium 4 BUN 34 creatinine 1.9 EKG tracing personally reviewed by me-normal sinus rhythm. Chest x-ray film personally reviewed by me-: Portable. No obvious infiltrate Knee x-ray/femur CT: Comminuted fracture distal metadiaphyseal femur adjacent to a knee processes. Displacement of the distal fracture fragment from the proximal fracture Assessment and plan: -Fall leading to acute Comminuted fracture distal metadiaphyseal femur adjacent to a knee processes. Displacement of the distal fracture fragment from the proximal fracture. March 28:right revision total knee replacement the distal femoral replacement age for periprosthetic distal femur fracture. By Dr. Stack. EBL 600 mL -Acute severe blood loss anemia from surgery Patient received 2 units of blood yesterday. Pending murmur unit of blood today. -Hyperkalemia from acute kidney injury -IV heparin monitoring Follow PTT -Acute cor pulmonale with underlying suspicious for fat embolism/pulmonary embolism with acute right ventricle dilatation and moderate to severe TR. -Acute hypotensive shock from blood loss anemia. Receive 3 units of blood. IV levo fed -Acute kidney injury likely cardiorenal syndrome/ATN. From hypotension and anemia.: Slow to respond I'll with nephrology -COPD in an ex-smoker Albuterol when necessary -Morbid obesity BMI 46.6 Weight loss measures -Diabetes mellitus type 2 on oral hypoglycemic,, chronically on insulin, uncontrolled with hyperglycemia Hold Actos. And Amaryl. Insulin drip -Hyperlipidemia Lipitor, TriCor -Anxiety not otherwise specified Klonopin 0.5 mg 3 times a day -Depression Zyprexa 5 mg daily at bedtime, Prozac 40 mg a day -Hyperuricemia Allopurinol -Essential hypertension, currently running low and -Acute hepatitis likely ischemic 5 -Primary osteoarthritis Pain medications when necessary -Chronic kidney disease stage III from diabetic nephropathy and hypertensive nephrosclerosis Follow renal function ICU. Critically ill. Current drips include levo fed, propofol, Nimbex. IV heparin. IV insulin. OG tube. Intubated. Receive total of 3 units of blood. Follow liver function. Prognosis guarded. Thank you Dr. Stack
[2023-03-30 21:13] LABS: Glucose,Whole Blood 186 mg/dL (70-110)
[2023-03-30 22:04] LABS: Glucose,Whole Blood 233 mg/dL (70-110)
--- NOTE | 2023-03-30 22:35 | P.CON ---
Consult Note - . Consult date: 03/30/23 Assessment/Plan:: Patient was seen and evaluated. I discussed with nursing, , daughter and granddaughter at bedside. Impression: Redo right total knee replacement due to fractured tibia Right total knee replacement about 4 weeks ago Respiratory failure with right heart strain on echo, possible PE multiple ongoing medical issues during current ICU stay reccomendations: your medical / ICU care. mobillization as her medical status allows. PT/OT when able will follow with you. PMH/PSH/FH/MEDICATIONS/ALLERGIES/ROS were all reviewed in chart. I am having diffuculty with EMR as it is my first day here at [facility]. 72 yo RH mwf [facility] home with 2 stfd. 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 she did not drive. She underwent a TKA about one month ago. did well she was at the [employer] and her walker got caught in the gravel. she fell with immediate pain in the right knee. She was diagnosted with a periprosthetic fracture. she underwent redo tka and then became tachycardia and hypoxic. We will follow with you. Alejandro Saini M.D. PMR cell [phone]
[2023-03-30 22:59] LABS: Glucose,Whole Blood 204 mg/dL (70-110)
[2023-03-31 00:01] LABS: Glucose,Whole Blood 167 mg/dL (70-110)
[2023-03-31] MEDS: IPRATROPIUM-ALBUTEROL 3 ML NEB INHALATION SCH ×6 (00:24→21:11)
[2023-03-31] MEDS: ARTIFICIAL TEARS-HYPROMELLOSE DROPS 15 ML BTL BOTH EYES SCH ×6 (00:29→19:59)
[2023-03-31 01:03] LABS: Glucose,Whole Blood 156 mg/dL (70-110)
[2023-03-31 01:59] LABS: Glucose,Whole Blood 160 mg/dL (70-110)
[2023-03-31] MEDS: INSULIN REGULAR 100 UNIT in SODIUM CHLORIDE 0.9% 100 ML IV SCH ×2 (02:25→16:29)
[2023-03-31 03:11] LABS: Glucose,Whole Blood 171 mg/dL (70-110)
[2023-03-31 04:10] LABS: Glucose,Whole Blood 191 mg/dL (70-110)
[2023-03-31 04:28] LABS: Basophils % (A) 0 %; Eosinophils # (A) 0.1 k/uL (0-0.7); Eosinophils % (A) 0 %; HCT 25.1 % (34.0-46.0); HGB 8.3 gm/dL (11.4-16.0); Lymphocytes # (A) 1.4 k/uL (1.0-4.8); Lymphocytes % (A) 9 %; MCH 29.3 pg (25.0-35.0); MCHC 33.1 g/dL (31.0-37.0); MCV 88.3 fL (80.0-100.0); Mean Platelet Volume 8.3; Monocytes # (A) 0.9 k/uL (0-1.0); Monocytes % (A) 6 %; Neutrophils # (A) 12.5 k/uL (1.3-7.7); Neutrophils % (A) 83 %; Platelet Count 302 k/uL (150-450); RBC 2.85 m/uL (3.80-5.40); RDW 15.7 % (11.5-15.5)
[2023-03-31 04:41] LABS: Albumin 2.5 g/dL (3.5-5.0); Calcium 8.3 mg/dL (8.4-10.2); Potassium 4.3 mmol/L (3.5-5.1); Total Bilirubin 0.8 mg/dL (0.2-1.3); Total Protein 4.5 g/dL (6.3-8.2)
[2023-03-31 04:57] LABS: Glucose,Whole Blood 206 mg/dL (70-110)
[2023-03-31 05:18] LABS: ABG Base Excess 2.7 mmol/L; ABG HCO3 28 mmol/L (21-25); ABG Oxygen Saturation 98.1 % (94-97); ABG PCO2 49 mmHg (35-45); ABG PH 7.37 (7.35-7.45); ABG PO2 95 mmHg (83-108); ABG TCO2 30 mmol/L (19-24)
[2023-03-31 06:01] LABS: Glucose,Whole Blood 204 mg/dL (70-110)
[2023-03-31] MEDS: SODIUM CHLORIDE 0.9% 80 ML with fentaNYL (PF) 1,000 MCG IV SCH ×2 (06:02)
[2023-03-31 06:58] LABS: Glucose,Whole Blood 205 mg/dL (70-110)
[2023-03-31 08:02] LABS: Glucose,Whole Blood 194 mg/dL (70-110)
[2023-03-31] MEDS: SODIUM CHLORIDE 0.9% 1,000 ML IV SCH (09:04)
[2023-03-31 09:15] LABS: Glucose,Whole Blood 181 mg/dL (70-110)
--- NOTE | 2023-03-31 09:21 | XR ---
EXAMINATION TYPE: XR chest 1V portable DATE OF EXAM: 03/31/2023 COMPARISON: 03/30/2023 HISTORY: Shortness of breath TECHNIQUE: Single frontal view of the chest is obtained. FINDINGS: ET and NG tube and central line stable. Heart is enlarged and there is bilateral consolida tion and small effusion. Mild interstitial prominence. Biapical pleural thickening but no pneumothora x. IMPRESSION: Bilateral infiltrate and small left effusion stable.
[2023-03-31] MEDS: FERROUS SULFATE 325 MG TAB PO SCH (09:30)
[2023-03-31] MEDS: ASPIRIN 81 MG PO SCH ×2 (09:30→20:02)
[2023-03-31] MEDS: FLUoxetine HCL 20 MG CAP PO SCH (09:30)
[2023-03-31] MEDS: CHLORHEXIDINE GLUCONATE 15 ML CUP MUCOUS MEM SCH ×2 (09:30→20:02)
[2023-03-31] MEDS: PANTOPRAZOLE 40 MG/10 ML VIAL IV SCH (09:30)
[2023-03-31 09:52] LABS: Glucose,Whole Blood 173 mg/dL (70-110)
--- NOTE | 2023-03-31 10:13 | P.CONS ---
History of Present Illness - Reason for Consult Consult date: 03/31/23 Rehab needs - Chief Complaint Debility - History of Present Illness Per review of records, patient is a 72-year-old F with PMH of previous right total knee replacement on 07/23/2022, diabetes mellitus, hypertension, obstructive sleep apnea, bilateral mastectomy for suspected breast cancer, and is an ex-smoker. Patient presented to the emergency room on 03/26/2023 after she tripped over a cord at the [employer] [facility], and landed on her right knee. A CT of the right femur showed a comminuted fracture of the distal metadiaphyseal femur adjacent to the knee prosthesis, and there was displacement of the distal fracture fragment from the proximal fracture. She was admitted to the hospital for revision of right knee prosthesis but intra operatively she became hypotensive requiring multiple fluid boluses and Hgb dropped to 6.8. She was transferred to ICU. She lives with in a home with 2 stfd. [employer]MATURE CONNECTOR I with ADLs and ambulated without device. She did not drive. Currently patient is still intubated, lying in bed. She remained on pressors and sedation. Lower ext dopplers negative for DVT. She has not gotten a CT of the chest to evaluate for PE because of worsening renal function but she is being treated with heparin. Review of Systems ROS unobtainable: due to endotracheal tube, due to mental status Past Medical History Past Medical History: Diabetes Mellitus, Hypertension, Osteoarthritis (OA), P neumonia, Sleep Apnea/CPAP/BIPAP Additional Past Medical History / Comment(s): covid 10/14/20-10/21/20, hypercalcemia, bilateral mastectomy but told after it was not cancer, colitis, varicose veins, "irregular urination" History of Any Multi-Drug Resistant Organisms: None Reported Past Surgical History: Breast Surgery, Hysterectomy, Joint Replacement, Tonsillectomy Additional Past Surgical History / Comment(s): Bilateral mastectomies, total L and R knee arthroplasty, colonoscopies, bilateral cataract removals/lens implants. right knee replacement 07/23/22 Past Anesthesia/Blood Transfusion Reactions: Motion Sickness Past Psychological History: Anxiety, Depression Additional Psychological History / Comment(s): . Smoking Status: Former smoker Past Alcohol Use History: None Reported Additional Past Alcohol Use History / Comment(s): Pt atarted smoking in 1964 and quit in 2005. Past Drug Use History: None Reported - Past Family History Sister(s) Family Medical History: Myocardial Infarction (ND) Additional Family Medical History / Comment(s): TWO SISTERS HAD AN ND Father Family Medical History: Cancer Additional Family Medical History / Comment(s): Father of stomach cancer. Mother Family Medical History: Cancer Additional Family Medical History / Comment(s): . Medications and Allergies Home Medications Medication Instructions Recorded Confirmed Type FLUoxetine HCL [PROzac] 40 mg PO DAILY 05/03/14 03/26/23 History Fenofibrate Nanocrystallized 145 mg PO DAILY 05/03/14 03/26/23 History [Tricor] OLANZapine [ZyPREXA] 5 mg PO HS 05/03/14 03/26/23 History clonazePAM [KlonoPIN] 0.5 mg PO TID 05/03/14 03/26/23 History allopurinoL [Zyloprim] 100 mg PO DAILY 10/13/20 03/26/23 History Metoprolol Succinate (ER) [Toprol 25 mg PO DAILY 12/10/20 03/26/23 History XL] Atorvastatin [Lipitor] 10 mg PO DAILY 06/11/22 03/26/23 History Multivit with Calcium,Iron,Min 1 tab PO DAILY 06/11/22 03/26/23 History [Women's Multivitamin] Pioglitazone [Actos] 15 mg PO DAILY 06/11/22 03/26/23 History Cinacalcet [Sensipar] 30 mg PO MOTH 03/26/23 03/26/23 History Ferrous Sulfate [Feosol] 325 mg PO DAILY 03/26/23 03/26/23 History Glimepiride [Amaryl] 2 mg PO DAILY 03/26/23 03/26/23 History Insulin Glargine,Hum.rec.anlog 56 units SQ HS 03/26/23 03/26/23 History [Lantus Solostar Pen] Magnesium Oxide [Mag-Ox] 400 mg PO DAILY 03/26/23 03/26/23 History Mesalamine [Mesalamine Dr] 800 mg PO TID 03/26/23 03/26/23 History Allergies Allergy/AdvReac Type Severity Reaction Status Date / Time No Known Allergies Allergy Verified 03/28/23 17:41 Physical Exam Vitals: Vital Signs Temp Pulse Resp BP Pulse Ox FiO2 03/31/23 08:49 50 03/31/23 08:20 88 03/31/23 08:12 45 03/31/23 08:10 87 03/31/23 08:00 87 34 H 97 55 03/31/23 07:45 86 34 H 97 03/31/23 07:30 87 34 H 97 03/31/23 07:29 55 03/31/23 07:15 87 33 H 98 03/31/23 07:00 85 34 H 135/52 97 55 03/31/23 06:45 90 34 H 97 55 03/31/23 06:30 92 34 H 97 55 03/31/23 06:15 89 34 H 135/52 97 55 03/31/23 06:00 93 34 H 147/48 95 55 03/31/23 05:45 91 34 H 97 55 03/31/23 05:30 88 34 H 147/48 96 55 03/31/23 05:15 89 34 H 96 55 03/31/23 05:00 87 34 H 95 55 03/31/23 04:45 89 34 H 97 55 03/31/23 04:30 89 34 H 98 55 03/31/23 04:20 90 03/31/23 04:15 89 34 H 97 55 03/31/23 04:08 90 03/31/23 04:07 55 03/31/23 04:00 99.5 F 91 34 H 96 55 03/31/23 03:45 92 34 H 96 55 03/31/23 03:30 89 34 H 96 55 03/31/23 03:15 90 34 H 96 55 03/31/23 03:00 91 34 H 94 L 55 03/31/23 02:45 93 34 H 96 55 03/31/23 02:30 89 34 H 96 55 03/31/23 02:23 89 34 H 97 55 03/31/23 02:00 88 34 H 96 55 03/31/23 01:45 87 34 H 96 55 03/31/23 01:30 88 34 H 95 55 03/31/23 01:15 90 34 H 96 55 03/31/23 01:00 89 34 H 95 55 03/31/23 00:45 87 34 H 96 55 05 00:38 90 05 00:30 86 34 H 96 55 0523 00:25 85 03/31/23 00:18 55 03/31/23 00:15 99 34 H 96 55 03/31/23 00:00 99.2 F 99 34 H 96 55 03/30/23 23:45 101 H 34 H 98 55 03/30/23 23:30 101 H 34 H 97 55 03/30/23 23:15 103 H 34 H 96 55 03/30/23 23:00 104 H 34 H 96 55 03/30/23 22:45 105 H 34 H 96 55 03/30/23 22:30 107 H 34 H 95 55 03/30/23 22:15 109 H 34 H 95 55 03/30/23 22:00 103 H 34 H 94 L 55 03/30/23 21:45 113 H 34 H 94 L 55 03/30/23 21:30 113 H 34 H 94 L 55 03/30/23 21:15 111 H 34 H 96 55 03/30/23 21:00 106 H 34 H 96 55 03/30/23 20:45 104 H 34 H 97 55 03/30/23 20:43 105 H 03/30/23 20:33 110 H 03/30/23 20:30 105 H 34 H 114/54 96 55 03/30/23 20:26 55 03/30/23 20:15 93 34 H 97 55 03/30/23 20:00 99 F 92 34 H 102/44 97 55 03/30/23 19:00 86 34 H 97 03/30/23 18:45 86 33 H 97 03/30/23 18:30 87 34 H 96 03/30/23 18:15 88 33 H 96 03/30/23 18:00 88 33 H 140/54 96 03/30/23 17:45 90 34 H 96 03/30/23 17:30 90 34 H 97 03/30/23 17:15 92 34 H 96 03/30/23 17:00 91 34 H 97 03/30/23 16:45 99.0 F 91 34 H 96 03/30/23 16:30 93 34 H 96 55 03/30/23 16:17 92 03/30/23 16:15 93 27 H 125/56 97 55 03/30/23 16:00 99.5 F 96 27 H 96 55 03/30/23 15:54 98 05/17/23 15:45 103 H 15 95 55 03/30/23 15:39 55 03/30/23 15:30 93 30 H 94 L 55 03/30/23 15:15 93 34 H 94 L 55 03/30/23 15:00 92 34 H 133/52 94 L 03/30/23 14:45 92 34 H 94 L 03/30/23 14:30 91 34 H 94 L 03/30/23 14:15 92 34 H 95 03/30/23 14:00 90 35 H 95 03/30/23 13:45 90 34 H 95 03/30/23 13:30 92 34 H 95 03/30/23 13:15 93 34 H 95 03/30/23 13:00 99 34 H 127/47 95 03/30/23 12:45 100 34 H 94 L 03/30/23 12:31 104 H 03/30/23 12:30 103 H 34 H 93 L 03/30/23 12:15 96 34 H 95 03/30/23 12:13 90 03/30/23 12:08 55 03/30/23 12:00 99.2 F 87 34 H 95 03/30/23 11:45 85 34 H 95 03/30/23 11:30 86 34 H 95 55 03/30/23 11:29 55 03/30/23 11:15 86 34 H 123/47 95 03/30/23 11:00 85 34 H 95 03/30/23 10:45 86 34 H 95 03/30/23 10:30 87 34 H 95 03/30/23 10:15 89 34 H 94 L 03/30/23 10:00 89 34 H 95 Intake and Output 03/30/23 03/31/23 03/31/23 22:59 06:59 14:59 Intake Total 1246.006 741.474 300.130 Output Total 780 765 265 Balance 466.006 -23.526 35.130 Intake: IV 300 80 Invasive Line 9 30 Sodium Chloride 0.9% 1, 250 000 ml @ 50 mls/hr IV . Q20H [facility] Rx#:[id number] cefTRIAXone 1 gm In 50 50 Sodium Chloride 0.9% 50 ml @ 100 mls/hr IVPB Q12HR [facility] Rx#:[id number] Intake, IV Titration 713.006 449.474 132.130 Amount Heparin Sod,Pork in 0.45% 250.000 NaCl 25,000 unit In 0.45 % NaCl 1 250ml.bag @ 8.65 UNITS/KG/HR 10.005 mls/ hr IV .Q24H [facility] Rx#: [id number] Insulin Regular 100 unit 55.797 40.307 19.472 In Sodium Chloride 0.9% 100 ml @ Titrate IV .Q0M [facility] Rx#:[id number] Norepinephrine 32 mg In 62.721 44.235 15.498 Sodium Chloride 0.9% 218 ml @ 0.03 MCG/KG/MIN 1. 627 mls/hr IV .Q24H [facility] Rx#:[id number] Sodium Chloride 0.9% 80 76.823 95.428 ml @ 0.5 MCG/KG/HR 5.783 mls/hr IV .[id number] [facility] with fentaNYL (PF) 1,000 mcg Rx#:[id number] propofoL 1,000 mg In 267.665 269.504 97.16 Empty Bag 1 bag @ 15 MCG/ KG/MIN 10.41 mls/hr IV . Q9H37M [facility] Rx#:[id number] Tube Feeding 203 232 58 Other 30 60 30 Output: Drainage 30 20 40 Right Knee 30 20 40 Urine 750 745 225 Other: Voiding Method Indwelling Catheter Indwelling Catheter Indwelling Catheter # Bowel Movements 0 Weight 131.9 kg ABP, PAP, CO, CI - Last 8 Hours Arterial Blood Pressure 101/45 Arterial Blood Pressure 113/47 Arterial Blood Pressure 114/47 Arterial Blood Pressure 116/47 Arterial Blood Pressure 113/47 Arterial Blood Pressure 113/47 Arterial Blood Pressure 111/46 Arterial Blood Pressure 104/44 Arterial Blood Pressure 132/48 Arterial Blood Pressure 114/45 Arterial Blood Pressure 114/44 Arterial Blood Pressure 119/45 Arterial Blood Pressure 118/46 Arterial Blood Pressure 135/48 Arterial Blood Pressure 115/43 Arterial Blood Pressure 126/46 Arterial Blood Pressure 125/43 Arterial Blood Pressure 140/50 Arterial Blood Pressure 127/46 Arterial Blood Pressure 132/47 Arterial Blood Pressure 135/48 General: Intubated, sedated Cardiovascular: RRR, bilateral pretibial pitting edema with blister formation in RLE Respiratory: intubated Abdomen: obese, not rigid or distended Genitourinary: griffin in place, urine clear Musculoskeletal: Passive ROM is full in bilateral upper and lower extremities; patient unable to participate in active ROM. Skin: right blister over dorsum of foot, fluid filled. Neurological: sedated, negative ankle clonus bilaterally, no increased tone in extremities Extremities: Right knee immobilizer in place Results CBC & Chem 7: 03/31/23 04:10 03/31/23 04:10 Labs: Abnormal Lab Results - Last 24 Hours (Table) 03/30/23 03/30/23 03/30/23 Range/Units 10:17 11:01 12:19 WBC (3.8-10.6) k/uL RBC (3.80-5.40) m/uL Hgb (11.4-16.0) gm/dL Hct (34.0-46.0) % RDW (11.5-15.5) % Neutrophils # (1.3-7.7) k/uL APTT (22.0-30.0) sec ABG pCO2 (35-45) mmHg ABG HCO3 (21-25) mmol/L ABG Total CO2 (19-24) mmol/L ABG O2 Saturation (94-97) % BUN (7-17) mg/dL Creatinine (0.52-1.04) mg/dL Glucose (74-99) mg/dL POC Glucose (mg/dL) 196 H 169 H 113 H (70-110) mg/dL Calcium (8.4-10.2) mg/dL AST (14-36) U/L ALT (4-34) U/L Total Protein (6.3-8.2) g/dL Albumin (3.5-5.0) g/dL 03/30/23 03/30/23 03/30/23 Range/Units 13:07 14:06 15:09 WBC (3.8-10.6) k/uL RBC (3.80-5.40) m/uL Hgb (11.4-16.0) gm/dL Hct (34.0-46.0) % RDW (11.5-15.5) % Neutrophils # (1.3-7.7) k/uL APTT (22.0-30.0) sec ABG pCO2 (35-45) mmHg ABG HCO3 (21-25) mmol/L ABG Total CO2 (19-24) mmol/L ABG O2 Saturation (94-97) % BUN (7-17) mg/dL Creatinine (0.52-1.04) mg/dL Glucose (74-99) mg/dL POC Glucose (mg/dL) 135 H 195 H 162 H (70-110) mg/dL Calcium (8.4-10.2) mg/dL AST (14-36) U/L ALT (4-34) U/L Total Protein (6.3-8.2) g/dL Albumin (3.5-5.0) g/dL 03/30/23 03/30/23 03/30/23 Range/Units 16:04 16:04 16:14 WBC 15.4 H (3.8-10.6) k/uL RBC 2.95 L (3.80-5.40) m/uL Hgb 8.8 L (11.4-16.0) gm/dL Hct 25.9 L (34.0-46.0) % RDW (11.5-15.5) % Neutrophils # 12.9 H (1.3-7.7) k/uL APTT (22.0-30.0) sec ABG pCO2 (35-45) mmHg ABG HCO3 (21-25) mmol/L ABG Total CO2 (19-24) mmol/L ABG O2 Saturation (94-97) % BUN 53 H (7-17) mg/dL Creatinine 1.99 H (0.52-1.04) mg/dL Glucose 131 H (74-99) mg/dL POC Glucose (mg/dL) 150 H (70-110) mg/dL Calcium 7.8 L (8.4-10.2) mg/dL AST 1842 H (14-36) U/L ALT 208 H (4-34) U/L Total Protein 4.6 L (6.3-8.2) g/dL Albumin 2.6 L (3.5-5.0) g/dL 03/30/23 03/30/23 03/30/23 Range/Units 17:29 18:03 19:22 WBC (3.8-10.6) k/uL RBC (3.80-5.40) m/uL Hgb (11.4-16.0) gm/dL Hct (34.0-46.0) % RDW (11.5-15.5) % Neutrophils # (1.3-7.7) k/uL APTT (22.0-30.0) sec ABG pCO2 (35-45) mmHg ABG HCO3 (21-25) mmol/L ABG Total CO2 (19-24) mmol/L ABG O2 Saturation (94-97) % BUN (7-17) mg/dL Creatinine (0.52-1.04) mg/dL Glucose (74-99) mg/dL POC Glucose (mg/dL) 119 H 119 H 177 H (70-110) mg/dL Calcium (8.4-10.2) mg/dL AST (14-36) U/L ALT (4-34) U/L Total Protein (6.3-8.2) g/dL Albumin (3.5-5.0) g/dL 03/30/23 03/30/23 03/30/23 Range/Units 20:59 22:02 22:57 WBC (3.8-10.6) k/uL RBC (3.80-5.40) m/uL Hgb (11.4-16.0) gm/dL Hct (34.0-46.0) % RDW (11.5-15.5) % Neutrophils # (1.3-7.7) k/uL APTT (22.0-30.0) sec ABG pCO2 (35-45) mmHg ABG HCO3 (21-25) mmol/L ABG Total CO2 (19-24) mmol/L ABG O2 Saturation (94-97) % BUN (7-17) mg/dL Creatinine (0.52-1.04) mg/dL Glucose (74-99) mg/dL POC Glucose (mg/dL) 186 H 233 H 204 H (70-110) mg/dL Calcium (8.4-10.2) mg/dL AST (14-36) U/L ALT (4-34) U/L Total Protein (6.3-8.2) g/dL Albumin (3.5-5.0) g/dL 03/31/23 03/31/23 03/31/23 Range/Units 00:00 01:02 01:58 WBC (3.8-10.6) k/uL RBC (3.80-5.40) m/uL Hgb (11.4-16.0) gm/dL Hct (34.0-46.0) % RDW (11.5-15.5) % Neutrophils # (1.3-7.7) k/uL APTT (22.0-30.0) sec ABG pCO2 (35-45) mmHg ABG HCO3 (21-25) mmol/L ABG Total CO2 (19-24) mmol/L ABG O2 Saturation (94-97) % BUN (7-17) mg/dL Creatinine (0.52-1.04) mg/dL Glucose (74-99) mg/dL POC Glucose (mg/dL) 167 H 156 H 160 H (70-110) mg/dL Calcium (8.4-10.2) mg/dL AST (14-36) U/L ALT (4-34) U/L Total Protein (6.3-8.2) g/dL Albumin (3.5-5.0) g/dL 03/31/23 03/31/23 03/31/23 Range/Units 03:10 04:08 04:10 WBC 15.0 H (3.8-10.6) k/uL RBC 2.85 L (3.80-5.40) m/uL Hgb 8.3 L (11.4-16.0) gm/dL Hct 25.1 L (34.0-46.0) % RDW 15.7 H (11.5-15.5) % Neutrophils # 12.5 H (1.3-7.7) k/uL APTT (22.0-30.0) sec ABG pCO2 (35-45) mmHg ABG HCO3 (21-25) mmol/L ABG Total CO2 (19-24) mmol/L ABG O2 Saturation (94-97) % BUN (7-17) mg/dL Creatinine (0.52-1.04) mg/dL Glucose (74-99) mg/dL POC Glucose (mg/dL) 171 H 191 H (70-110) mg/dL Calcium (8.4-10.2) mg/dL AST (14-36) U/L ALT (4-34) U/L Total Protein (6.3-8.2) g/dL Albumin (3.5-5.0) g/dL 03/31/23 03/31/23 03/31/23 Range/Units 04:10 04:53 05:15 WBC (3.8-10.6) k/uL RBC (3.80-5.40) m/uL Hgb (11.4-16.0) gm/dL Hct (34.0-46.0) % RDW (11.5-15.5) % Neutrophils # (1.3-7.7) k/uL APTT (22.0-30.0) sec ABG pCO2 49 H (35-45) mmHg ABG HCO3 28 H (21-25) mmol/L ABG Total CO2 30 H (19-24) mmol/L ABG O2 Saturation 98.1 H (94-97) % BUN 51 H (7-17) mg/dL Creatinine 1.59 H (0.52-1.04) mg/dL Glucose 172 H (74-99) mg/dL POC Glucose (mg/dL) 206 H (70-110) mg/dL Calcium 8.3 L (8.4-10.2) mg/dL AST 963 H (14-36) U/L ALT 149 H (4-34) U/L Total Protein 4.5 L (6.3-8.2) g/dL Albumin 2.5 L (3.5-5.0) g/dL 03/31/23 03/31/23 03/31/23 Range/Units 05:37 06:00 06:57 WBC (3.8-10.6) k/uL RBC (3.80-5.40) m/uL Hgb (11.4-16.0) gm/dL Hct (34.0-46.0) % RDW (11.5-15.5) % Neutrophils # (1.3-7.7) k/uL APTT 54.5 H (22.0-30.0) sec ABG pCO2 (35-45) mmHg ABG HCO3 (21-25) mmol/L ABG Total CO2 (19-24) mmol/L ABG O2 Saturation (94-97) % BUN (7-17) mg/dL Creatinine (0.52-1.04) mg/dL Glucose (74-99) mg/dL POC Glucose (mg/dL) 204 H 205 H (70-110) mg/dL Calcium (8.4-10.2) mg/dL AST (14-36) U/L ALT (4-34) U/L Total Protein (6.3-8.2) g/dL Albumin (3.5-5.0) g/dL 03/31/23 03/31/23 03/31/23 Range/Units 08:00 09:13 09:49 WBC (3.8-10.6) k/uL RBC (3.80-5.40) m/uL Hgb (11.4-16.0) gm/dL Hct (34.0-46.0) % RDW (11.5-15.5) % Neutrophils # (1.3-7.7) k/uL APTT (22.0-30.0) sec ABG pCO2 (35-45) mmHg ABG HCO3 (21-25) mmol/L ABG Total CO2 (19-24) mmol/L ABG O2 Saturation (94-97) % BUN (7-17) mg/dL Creatinine (0.52-1.04) mg/dL Glucose (74-99) mg/dL POC Glucose (mg/dL) 194 H 181 H 173 H (70-110) mg/dL Calcium (8.4-10.2) mg/dL AST (14-36) U/L ALT (4-34) U/L Total Protein (6.3-8.2) g/dL Albumin (3.5-5.0) g/dL Microbiology - Last 24 Hours (Table) 03/28/23 23:20 Gram Stain - Final Sputum Sputum Culture - Final 03/29/23 08:00 Urine Culture - Final Urine,Voided Assessment and Plan Plan: #Debility secondary to fracture of the distal femur from a fall -Redo right total knee replacement due to fractured tibia -Right total knee replacement about 4 weeks ago #Respiratory failure with right heart strain on echo, possible PE #Medical co morbidities- Anxiety, depression, DM on insulin Bowel/ Bladder: Continue Griffin cath, primary monitoring. Continue 2 tabs senna-S Diet: Nothing by mouth Pain Management: [place] 5-325 mg q4h PRN, also has IV dilaudid 0.25 mg q3h PRN DVT Prophylaxis: Heparin gtt Goals: Pending extubation Barriers: Respiratory failure, fracture. Discharge recommendation: Pending extubation and further therapies Prognosis is guarded Thank you for this consultation.
[2023-03-31 11:32] LABS: Glucose,Whole Blood 162 mg/dL (70-110)
[2023-03-31] MEDS: HYDROmorphone 0.5 MG/0.5 ML SYRINGE IVP PRN ×3 (11:43→19:10)
[2023-03-31] MEDS ORDERED: FUROSEMIDE 10 MG/ML 2 ML VIAL IV ONE (11:46)
--- NOTE | 2023-03-31 11:46 | P.PN ---
Subjective Patient is seen in follow-up for acute kidney injury on chronic kidney disease. Renal function improving. Potassium level normal. On insulin drip. On Levophed. Nonoliguric. Intubated. Receiving tube feeds. Vital signs are stable. On Levophed. General: Resting in bed. HEENT: Intubated. LUNGS: Scattered rhonchi. HEART: Rate and Rhythm are regular. ABDOMEN: Soft, no distention. EXTREMITITES: Trace edema. Objective - Vital Signs Vital signs: Vital Signs Temp 99.5 F 03/31/23 04:00 Pulse 102 H 03/31/23 11:08 Resp 34 H 03/31/23 08:00 BP 135/52 03/31/23 07:00 Pulse Ox 97 03/31/23 08:00 FiO2 50 03/31/23 10:45 Intake & Output 03/30/23 03/31/23 03/31/23 18:59 06:59 18:59 Intake Total 6133.900 7633.839 387.130 Output Total 1100 1195 590 Balance 704.341 175.839 -202.870 Weight 129.4 kg 131.9 kg Intake: IV 680 100 80 Dextrose 5% in Water 1, 150 000 ml @ 50 mls/hr IV . Q23H [facility] with Sodium Bicarb (1 Meq/ml) 150 ml Rx#:[id number] Invasive Line 9 30 30 Sodium Chloride 0.9% 1, 450 50 000 ml @ 50 mls/hr IV . Q20H [facility] Rx#:[id number] cefTRIAXone 1 gm In 50 50 50 Sodium Chloride 0.9% 50 ml @ 100 mls/hr IVPB Q12HR [facility] Rx#:[id number] Intake, IV Titration 715.341 861.839 132.130 Amount Cisatracurium 200 mg In 51.067 Sodium Chloride 0.9% 180 ml @ 1 MCG/KG/MIN 6.94 mls/hr IV .Q24H [facility] Rx#: [id number] Heparin Sod,Pork in 0.45% 250.000 NaCl 25,000 unit In 0.45 % NaCl 1 250ml.bag @ 8.65 UNITS/KG/HR 10.005 mls/ hr IV .Q24H [facility] Rx#: [id number] Insulin Regular 100 unit 106.464 47.515 19.472 In Sodium Chloride 0.9% 100 ml @ Titrate IV .Q0M [facility] Rx#:[id number] Norepinephrine 32 mg In 32.207 106.956 15.498 Sodium Chloride 0.9% 218 ml @ 0.03 MCG/KG/MIN 1. 627 mls/hr IV .Q24H [facility] Rx#:[id number] Sodium Chloride 0.9% 80 54.944 120.199 ml @ 0.5 MCG/KG/HR 5.783 mls/hr IV .[id number] [facility] with fentaNYL (PF) 1,000 mcg Rx#:[id number] propofoL 1,000 mg In 470.659 337.169 97.16 Empty Bag 1 bag @ 15 MCG/ KG/MIN 10.41 mls/hr IV . Q9H37M [facility] Rx#:[id number] Tube Feeding 319 319 145 Other 90 90 30 Output: Drainage 50 40 Right Knee 50 40 Urine 1100 1145 550 Other: Voiding Method Indwelling Catheter Indwelling Catheter Indwelling Catheter # Bowel Movements 0 ABP, PAP, CO, CI - Last Documented Arterial Blood Pressure 101/45 - Labs CBC & Chem 7: 03/31/23 04:10 03/31/23 04:10 Labs: Abnormal Lab Results - Last 24 Hours (Table) 03/30/23 03/30/23 03/30/23 Range/Units 12:19 13:07 14:06 WBC (3.8-10.6) k/uL RBC (3.80-5.40) m/uL Hgb (11.4-16.0) gm/dL Hct (34.0-46.0) % RDW (11.5-15.5) % Neutrophils # (1.3-7.7) k/uL APTT (22.0-30.0) sec ABG pCO2 (35-45) mmHg ABG HCO3 (21-25) mmol/L ABG Total CO2 (19-24) mmol/L ABG O2 Saturation (94-97) % BUN (7-17) mg/dL Creatinine (0.52-1.04) mg/dL Glucose (74-99) mg/dL POC Glucose (mg/dL) 113 H 135 H 195 H (70-110) mg/dL Calcium (8.4-10.2) mg/dL AST (14-36) U/L ALT (4-34) U/L Total Protein (6.3-8.2) g/dL Albumin (3.5-5.0) g/dL 03/30/23 03/30/23 03/30/23 Range/Units 15:09 16:04 16:04 WBC 15.4 H (3.8-10.6) k/uL RBC 2.95 L (3.80-5.40) m/uL Hgb 8.8 L (11.4-16.0) gm/dL Hct 25.9 L (34.0-46.0) % RDW (11.5-15.5) % Neutrophils # 12.9 H (1.3-7.7) k/uL APTT (22.0-30.0) sec ABG pCO2 (35-45) mmHg ABG HCO3 (21-25) mmol/L ABG Total CO2 (19-24) mmol/L ABG O2 Saturation (94-97) % BUN 53 H (7-17) mg/dL Creatinine 1.99 H (0.52-1.04) mg/dL Glucose 131 H (74-99) mg/dL POC Glucose (mg/dL) 162 H (70-110) mg/dL Calcium 7.8 L (8.4-10.2) mg/dL AST 1842 H (14-36) U/L ALT 208 H (4-34) U/L Total Protein 4.6 L (6.3-8.2) g/dL Albumin 2.6 L (3.5-5.0) g/dL 03/30/23 03/30/23 03/30/23 Range/Units 16:14 17:29 18:03 WBC (3.8-10.6) k/uL RBC (3.80-5.40) m/uL Hgb (11.4-16.0) gm/dL Hct (34.0-46.0) % RDW (11.5-15.5) % Neutrophils # (1.3-7.7) k/uL APTT (22.0-30.0) sec ABG pCO2 (35-45) mmHg ABG HCO3 (21-25) mmol/L ABG Total CO2 (19-24) mmol/L ABG O2 Saturation (94-97) % BUN (7-17) mg/dL Creatinine (0.52-1.04) mg/dL Glucose (74-99) mg/dL POC Glucose (mg/dL) 150 H 119 H 119 H (70-110) mg/dL Calcium (8.4-10.2) mg/dL AST (14-36) U/L ALT (4-34) U/L Total Protein (6.3-8.2) g/dL Albumin (3.5-5.0) g/dL 03/30/23 03/30/23 03/30/23 Range/Units 19:22 20:59 22:02 WBC (3.8-10.6) k/uL RBC (3.80-5.40) m/uL Hgb (11.4-16.0) gm/dL Hct (34.0-46.0) % RDW (11.5-15.5) % Neutrophils # (1.3-7.7) k/uL APTT (22.0-30.0) sec ABG pCO2 (35-45) mmHg ABG HCO3 (21-25) mmol/L ABG Total CO2 (19-24) mmol/L ABG O2 Saturation (94-97) % BUN (7-17) mg/dL Creatinine (0.52-1.04) mg/dL Glucose (74-99) mg/dL POC Glucose (mg/dL) 177 H 186 H 233 H (70-110) mg/dL Calcium (8.4-10.2) mg/dL AST (14-36) U/L ALT (4-34) U/L Total Protein (6.3-8.2) g/dL Albumin (3.5-5.0) g/dL 03/30/23 03/31/23 03/31/23 Range/Units 22:57 00:00 01:02 WBC (3.8-10.6) k/uL RBC (3.80-5.40) m/uL Hgb (11.4-16.0) gm/dL Hct (34.0-46.0) % RDW (11.5-15.5) % Neutrophils # (1.3-7.7) k/uL APTT (22.0-30.0) sec ABG pCO2 (35-45) mmHg ABG HCO3 (21-25) mmol/L ABG Total CO2 (19-24) mmol/L ABG O2 Saturation (94-97) % BUN (7-17) mg/dL Creatinine (0.52-1.04) mg/dL Glucose (74-99) mg/dL POC Glucose (mg/dL) 204 H 167 H 156 H (70-110) mg/dL Calcium (8.4-10.2) mg/dL AST (14-36) U/L ALT (4-34) U/L Total Protein (6.3-8.2) g/dL Albumin (3.5-5.0) g/dL 03/31/23 03/31/23 03/31/23 Range/Units 01:58 03:10 04:08 WBC (3.8-10.6) k/uL RBC (3.80-5.40) m/uL Hgb (11.4-16.0) gm/dL Hct (34.0-46.0) % RDW (11.5-15.5) % Neutrophils # (1.3-7.7) k/uL APTT (22.0-30.0) sec ABG pCO2 (35-45) mmHg ABG HCO3 (21-25) mmol/L ABG Total CO2 (19-24) mmol/L ABG O2 Saturation (94-97) % BUN (7-17) mg/dL Creatinine (0.52-1.04) mg/dL Glucose (74-99) mg/dL POC Glucose (mg/dL) 160 H 171 H 191 H (70-110) mg/dL Calcium (8.4-10.2) mg/dL AST (14-36) U/L ALT (4-34) U/L Total Protein (6.3-8.2) g/dL Albumin (3.5-5.0) g/dL 03/31/23 03/31/23 03/31/23 Range/Units 04:10 04:10 04:53 WBC 15.0 H (3.8-10.6) k/uL RBC 2.85 L (3.80-5.40) m/uL Hgb 8.3 L (11.4-16.0) gm/dL Hct 25.1 L (34.0-46.0) % RDW 15.7 H (11.5-15.5) % Neutrophils # 12.5 H (1.3-7.7) k/uL APTT (22.0-30.0) sec ABG pCO2 (35-45) mmHg ABG HCO3 (21-25) mmol/L ABG Total CO2 (19-24) mmol/L ABG O2 Saturation (94-97) % BUN 51 H (7-17) mg/dL Creatinine 1.59 H (0.52-1.04) mg/dL Glucose 172 H (74-99) mg/dL POC Glucose (mg/dL) 206 H (70-110) mg/dL Calcium 8.3 L (8.4-10.2) mg/dL AST 963 H (14-36) U/L ALT 149 H (4-34) U/L Total Protein 4.5 L (6.3-8.2) g/dL Albumin 2.5 L (3.5-5.0) g/dL 03/31/23 03/31/23 03/31/23 Range/Units 05:15 05:37 06:00 WBC (3.8-10.6) k/uL RBC (3.80-5.40) m/uL Hgb (11.4-16.0) gm/dL Hct (34.0-46.0) % RDW (11.5-15.5) % Neutrophils # (1.3-7.7) k/uL APTT 54.5 H (22.0-30.0) sec ABG pCO2 49 H (35-45) mmHg ABG HCO3 28 H (21-25) mmol/L ABG Total CO2 30 H (19-24) mmol/L ABG O2 Saturation 98.1 H (94-97) % BUN (7-17) mg/dL Creatinine (0.52-1.04) mg/dL Glucose (74-99) mg/dL POC Glucose (mg/dL) 204 H (70-110) mg/dL Calcium (8.4-10.2) mg/dL AST (14-36) U/L ALT (4-34) U/L Total Protein (6.3-8.2) g/dL Albumin (3.5-5.0) g/dL 03/31/23 03/31/23 03/31/23 Range/Units 06:57 08:00 09:13 WBC (3.8-10.6) k/uL RBC (3.80-5.40) m/uL Hgb (11.4-16.0) gm/dL Hct (34.0-46.0) % RDW (11.5-15.5) % Neutrophils # (1.3-7.7) k/uL APTT (22.0-30.0) sec ABG pCO2 (35-45) mmHg ABG HCO3 (21-25) mmol/L ABG Total CO2 (19-24) mmol/L ABG O2 Saturation (94-97) % BUN (7-17) mg/dL Creatinine (0.52-1.04) mg/dL Glucose (74-99) mg/dL POC Glucose (mg/dL) 205 H 194 H 181 H (70-110) mg/dL Calcium (8.4-10.2) mg/dL AST (14-36) U/L ALT (4-34) U/L Total Protein (6.3-8.2) g/dL Albumin (3.5-5.0) g/dL 03/31/23 03/31/23 Range/Units 09:49 11:30 WBC (3.8-10.6) k/uL RBC (3.80-5.40) m/uL Hgb (11.4-16.0) gm/dL Hct (34.0-46.0) % RDW (11.5-15.5) % Neutrophils # (1.3-7.7) k/uL APTT (22.0-30.0) sec ABG pCO2 (35-45) mmHg ABG HCO3 (21-25) mmol/L ABG Total CO2 (19-24) mmol/L ABG O2 Saturation (94-97) % BUN (7-17) mg/dL Creatinine (0.52-1.04) mg/dL Glucose (74-99) mg/dL POC Glucose (mg/dL) 173 H 162 H (70-110) mg/dL Calcium (8.4-10.2) mg/dL AST (14-36) U/L ALT (4-34) U/L Total Protein (6.3-8.2) g/dL Albumin (3.5-5.0) g/dL Microbiology - Last 24 Hours (Table) 03/29/23 06:13 Blood Culture - Preliminary Blood 03/28/23 23:20 Gram Stain - Final Sputum Sputum Culture - Final 03/29/23 08:00 Urine Culture - Final Urine,Voided Assessment and Plan Plan: Assessment: 1. Acute kidney injury secondary to hemodynamic ATN/shock. Creatinine 1.29 on admission and peaked at 2.43 this admission - 1.59 today. Nonoliguric. No hydronephrosis noted on kidney ultrasound. Left kidney not visualized. 2. Chronic kidney disease stage IIIa with baseline creatinine 1-1.2 secondary to nephrosclerosis/diabetic kidney disease. 3. History of hypercalcemia maintained on Sensipar. Calcium 8.3 today. 4. Acute blood loss anemia status post blood transfusions this admission. Hemoglobin 8.3 today. 5. Hyperkalemia secondary to acute kidney injury, hyperglycemia, acidosis and acute blood loss. Improved with medical management. 6. Status post knee revision 03/28/2023. 7. Diabetes mellitus. 8. Questionable PE with severe pulmonary hypertension and moderate to severe tricuspid regurgitation. On heparin drip. 9. Lower extremity edema. Plan: Maintain tube feeds. Lasix 20 mg IV once today. Wean vasopressors as able. Blood sugar control. Currently on insulin drip. Status post IV Lasix given 03/29/2023. Continue to monitor renal function and urine output. Avoid nephrotoxins. Continue to hold Sensipar for now.
--- NOTE | 2023-03-31 12:12 | P.PN ---
Subjective Progress Note Date: 03/31/23 Principal diagnosis: Acute hypoxic respiratory failure post repair of right comminuted fracture of distal femur adjacent to the knee prosthesis, postoperative day #3 I'm seeing this patient in new consultation today 03/29/2023 following a repair of a comminuted periprosthetic distal femur fracture. Patient is a 72-year-old white female with significant past medical history of previous right total knee replacement on 07/23/2022, diabetes mellitus, hypertension, obstructive sleep apnea, bilateral mastectomy for suspected breast cancer, and is an ex-smoker. Patient presented to the emergency room on 03/26/2023 after she tripped over a cord at the [facility], and landed on her right knee. A CT of the right femur without contrast showed a comminuted fracture of the distal metadiaphyseal femur adjacent to the knee prosthesis, and there was displacement of the distal fra cture fragment from the proximal fracture. She was admitted to the hospital, and taken to the operating room yesterday evening. Patient reportedly had stabilization of the distal femur fracture with revision of the right knee prosthesis. Intraoperatively, the patient became hypotensive requiring multiple fluid boluses with a total of 2.8 L of lactated Ringer's, 1 L albumin, and was subsequently started on a Woody-Synephrine infusion. Patient's hemoglobin level was reportedly 6.8 intraoperatively, and the patient received a total of 2 units PRBC. Patient was then transferred to the intensive care unit in critical condition. Patient is currently lying in bed, intubated to the mechanical ventilator. Initial ventilator settings were assist control, respiratory rate 14, tidal volume 350, FiO2 100%, PEEP of 5. ABGs done on these settings showed a pO2 of 108, pCO2 of 75, pH of 7.07. The patient's respiratory rate was increased to 20 and tidal volume to 400. Peak pressures are currently 31 and vital pressures are 18. Propofol infusing for sedation at 30 mcg/kg/m. Patient is synchronous mechanical ventilator. Postoperative chest x-ray shows endotracheal tube above the radha, cardiomegaly, and small left pleural effusion. So far, the patient is still hypotensive, and will be given an additional liter of normal saline. Patient was transitioned to Levophed, and is currently infusing at 0.28 mics per kilogram per minute. A left radial arterial line was inserted. There is a i ndwelling urinary catheter in place, with only about 10 ML's of urine since surgery. Patient does have a Hemovac from the right postsurgical knee draining small amount of sanguinous output. Patient does have a right knee immobilizer in place. There is postsurgical wound VAC in place. Dilaudid is on for analgesia. Postoperative CBC after 2 units PRBC transfusion shows a WBC count of 25, hemoglobin 9.1, hematocrit 28.7, platelets 405. BMP postoperatively shows a sodium 136, potassium 6.9, chloride 100, serum CO2 22, BUN 34, creatinine 1.74, glucose 232. LFTs are elevated with an AST of 1044 and ALT of 154. Patient's hyperkalemia will be treated with 10 units regular insulin, 1 amp D50 W, 1 g calcium gluconate, and albuterol. Lactic acid level is 4.2, and is receiving an additional liter of normal saline. Patient will be monitored in the intensive care unit. Reevaluated today on 03/30/2023, patient remains in the ICU, intubated and mechanically ventilated. Patient is now on assist control rate of 50 to tidal volume 420 FiO2 60% PEEP of 8. ABG showed a pO2 of 72 pCO2 55 pH of 7.31, hence I was able to increase the rate to 34 FiO2 cut down to 55% and The PEEP to 8. remains on propofol at 50 mcg/kg/m, norepinephrine 0.12 mcg/kg/m Nimbex at 0.5 mcg/kg/m insulin at 14 units an hour and she is on bicarb drip which I discontinued. I have also recommended stopping Nimbex and transitioning the patient to fentanyl instead. Again I'm planning to discontinue Nimbex today and discontinue bicarb. Renal functioning is a bit worse today compared to yesterday, creatinine is 2.43 and it was 2.37. Baseline is 1.29. Hence this prohibits us from performing a CT angiogram of the chest, and I'm recommending that we continue heparin. WBC count today is 14 hemoglobin is 8.8. Her PTT is therapeutic at 66.5. Liver enzymes are elevated with elevated AST of 3981 and elevated ALT of 375 which indicates that the patient may have a shocked liver. Chest x-ray showed small pleural effusion and small areas of left lower lobe atelectasis without pneumonia. Lower extremities Doppler is negative for DVT. Patient was evaluated today on 03/31/2023, remains in the ICU, intubated and mechanically ventilated. Patient is on assist control rate of 34 tidal volume 420 FiO2 45% PEEP of 8 ABG showed a pO2 of 95 pCO2 49 pH of 7.35 hence I made changes on the ventilator with going to rate 32, tidal volume increased to 450 FiO2 increased to 50% and repeat down to 5. Patient is still on multiple drips including insulin at 8.17 units an hour propofol at 14 mcg/kg/m norepinephrine at 0.11 mcg/kg/m fentanyl at 1 mcg/kg/h and she is receiving vital HPI 29 mL per hour. IV fluid is 0.9 at 50 mL per hour today I changed fentanyl to 0.5 mcg/kg/h and asked nursing staff to adjust the propofol up and down accordingly. We definitely like to assess mental status today off sedation if possible but will try to titrate propofol and set of titrating both, fentanyl and propofol at the same time. Chest x-ray continues to show left lower lobe atelectasis and small left pleural effusion. WBC count is 15 hemoglobin is 8.3, basic metabolic profile is normal, renal profile is improving with BUN down to 51 and creatinine of 1.59. We will continue IV fluid at 50 mL per hour patient is making good amount of urine on her own no need for diuretics at this point and no need to cut down significantly on the fluids at this point since the patient is not developing congestive heart failure and the findings on the chest x-ray are mostly findings of atelectasis and possibly small left-sided pleural effusion. Blood sugars are controlled with the insulin drip. Liver enzymes are improving AST is down to 963 from 184 to yesterday. And her ALT is down to 149 from 208 yesterday. Cultures of urine and blood and sputum are still negative so far patient remains on heparin and I have no plans to start the patient for a CT angiogram of the chest as long as renal profile seems to be abnormal. Objective - Vital Signs Vital signs: Vital Signs Temp 99.5 F 03/31/23 04:00 Pulse 102 H 03/31/23 11:08 Resp 34 H 03/31/23 08:00 BP 135/52 03/31/23 07:00 Pulse Ox 97 03/31/23 08:00 FiO2 50 03/31/23 10:45 Intake & Output 03/30/23 03/31/23 03/31/23 18:59 06:59 18:59 Intake Total 2663.176 4035.839 496.291 Output Total 1100 1195 590 Balance 704.341 175.839 -93.709 Weight 129.4 kg 131.9 kg Intake: IV 680 100 80 Dextrose 5% in Water 1, 150 000 ml @ 50 mls/hr IV . Q23H NENITA with Sodium Bicarb (1 Meq/ml) 150 ml Rx#:[id number] Invasive Line 9 30 30 Sodium Chloride 0.9% 1, 450 50 000 ml @ 50 mls/hr IV . Q[facility]H [facility] Rx#:[id number] cefTRIAXone 1 gm In 50 50 50 Sodium Chloride 0.9% 50 ml @ 100 mls/hr IVPB Q12HR [facility] Rx#:[id number] Intake, IV Titration 715.341 861.839 241.291 Amount Cisatracurium 200 mg In 51.067 Sodium Chloride 0.9% 180 ml @ 1 MCG/KG/MIN 6.94 mls/hr IV .Q24H [facility] Rx#: [id number] Heparin Sod,Pork in 0.45% 250.000 NaCl 25,000 unit In 0.45 % NaCl 1 250ml.bag @ 8.65 UNITS/KG/HR 10.005 mls/ hr IV .Q24H [facility] Rx#: [id number] Insulin Regular 100 unit 106.464 47.515 19.472 In Sodium Chloride 0.9% 100 ml @ Titrate IV .Q0M [facility] Rx#:[id number] Norepinephrine 32 mg In 32.207 106.956 29.234 Sodium Chloride 0.9% 218 ml @ 0.03 MCG/KG/MIN 1. 627 mls/hr IV .Q24H [facility] Rx#:[id number] Sodium Chloride 0.9% 80 54.944 120.199 ml @ 0.5 MCG/KG/HR 5.783 mls/hr IV .[id number] NENITA with fentaNYL (PF) 1,000 mcg Rx#:[id number] propofoL 1,000 mg In 470.659 337.169 192.585 Empty Bag 1 bag @ 15 MCG/ KG/MIN 10.41 mls/hr IV . Q9H37M [facility] Rx#:[id number] Tube Feeding 319 319 145 Other 90 90 30 Output: Drainage 50 40 Right Knee 50 40 Urine 1100 1145 550 Other: Voiding Method Indwelling Catheter Indwelling Catheter Indwelling Catheter # Bowel Movements 0 ABP, PAP, CO, CI - Last Documented Arterial Blood Pressure 101/45 - Exam Physical Exam: Revealed a 72-year-old female sedated, intubated, being ventilated, on propofol and fentanyl Head: Atraumatic, normocephalic. HEENT:[Neck is supple.] [No neck masses.] [No thyromegaly.] [No JVD.] Left subclavian central line is noted. Chest: [Fine crackles at the bases. Symmetrical chest expansion, no rhonchi no wheezes Cardiac Exam: [Normal S1 and S2, no S3 gallop, no murmur.] Abdomen: [Obese, Soft, nontender, no megaly, no rebound, no guarding, normal bowel sounds.] Extremities: [No clubbing, left knee is immobilized. Trace of bipedal edema. Neurological Exam: Could not assess patient is sedated , sedation will be dropped down a bit today, and will hopefully assess mental status today. Psychiatric: Could not be assessed patient is sedated on propofol and fentanyl - Labs CBC & Chem 7: 03/31/23 04:10 03/31/23 04:10 Labs: Abnormal Lab Results - Last 24 Hours (Table) 03/30/23 03/30/23 03/30/23 Range/Units 12:19 13:07 14:06 WBC (3.8-10.6) k/uL RBC (3.80-5.40) m/uL Hgb (11.4-16.0) gm/dL Hct (34.0-46.0) % RDW (11.5-15.5) % Neutrophils # (1.3-7.7) k/uL APTT (22.0-30.0) sec ABG pCO2 (35-45) mmHg ABG HCO3 (21-25) mmol/L ABG Total CO2 (19-24) mmol/L ABG O2 Saturation (94-97) % BUN (7-17) mg/dL Creatinine (0.52-1.04) mg/dL Glucose (74-99) mg/dL POC Glucose (mg/dL) 113 H 135 H 195 H (70-110) mg/dL Calcium (8.4-10.2) mg/dL AST (14-36) U/L ALT (4-34) U/L Total Protein (6.3-8.2) g/dL Albumin (3.5-5.0) g/dL 03/30/23 03/30/23 03/30/23 Range/Units 15:09 16:04 16:04 WBC 15.4 H (3.8-10.6) k/uL RBC 2.95 L (3.80-5.40) m/uL Hgb 8.8 L (11.4-16.0) gm/dL Hct 25.9 L (34.0-46.0) % RDW (11.5-15.5) % Neutrophils # 12.9 H (1.3-7.7) k/uL APTT (22.0-30.0) sec ABG pCO2 (35-45) mmHg ABG HCO3 (21-25) mmol/L ABG Total CO2 (19-24) mmol/L ABG O2 Saturation (94-97) % BUN 53 H (7-17) mg/dL Creatinine 1.99 H (0.52-1.04) mg/dL Glucose 131 H (74-99) mg/dL POC Glucose (mg/dL) 162 H (70-110) mg/dL Calcium 7.8 L (8.4-10.2) mg/dL AST 1842 H (14-36) U/L ALT 208 H (4-34) U/L Total Protein 4.6 L (6.3-8.2) g/dL Albumin 2.6 L (3.5-5.0) g/dL 03/30/23 03/30/23 03/30/23 Range/Units 16:14 17:29 18:03 WBC (3.8-10.6) k/uL RBC (3.80-5.40) m/uL Hgb (11.4-16.0) gm/dL Hct (34.0-46.0) % RDW (11.5-15.5) % Neutrophils # (1.3-7.7) k/uL APTT (22.0-30.0) sec ABG pCO2 (35-45) mmHg ABG HCO3 (21-25) mmol/L ABG Total CO2 (19-24) mmol/L ABG O2 Saturation (94-97) % BUN (7-17) mg/dL Creatinine (0.52-1.04) mg/dL Glucose (74-99) mg/dL POC Glucose (mg/dL) 150 H 119 H 119 H (70-110) mg/dL Calcium (8.4-10.2) mg/dL AST (14-36) U/L ALT (4-34) U/L Total Protein (6.3-8.2) g/dL Albumin (3.5-5.0) g/dL 03/30/23 03/30/23 03/30/23 Range/Units 19:22 20:59 22:02 WBC (3.8-10.6) k/uL RBC (3.80-5.40) m/uL Hgb (11.4-16.0) gm/dL Hct (34.0-46.0) % RDW (11.5-15.5) % Neutrophils # (1.3-7.7) k/uL APTT (22.0-30.0) sec ABG pCO2 (35-45) mmHg ABG HCO3 (21-25) mmol/L ABG Total CO2 (19-24) mmol/L ABG O2 Saturation (94-97) % BUN (7-17) mg/dL Creatinine (0.52-1.04) mg/dL Glucose (74-99) mg/dL POC Glucose (mg/dL) 177 H 186 H 233 H (70-110) mg/dL Calcium (8.4-10.2) mg/dL AST (14-36) U/L ALT (4-34) U/L Total Protein (6.3-8.2) g/dL Albumin (3.5-5.0) g/dL 03/30/23 03/31/23 03/31/23 Range/Units 22:57 00:00 01:02 WBC (3.8-10.6) k/uL RBC (3.80-5.40) m/uL Hgb (11.4-16.0) gm/dL Hct (34.0-46.0) % RDW (11.5-15.5) % Neutrophils # (1.3-7.7) k/uL APTT (22.0-30.0) sec ABG pCO2 (35-45) mmHg ABG HCO3 (21-25) mmol/L ABG Total CO2 (19-24) mmol/L ABG O2 Saturation (94-97) % BUN (7-17) mg/dL Creatinine (0.52-1.04) mg/dL Glucose (74-99) mg/dL POC Glucose (mg/dL) 204 H 167 H 156 H (70-110) mg/dL Calcium (8.4-10.2) mg/dL AST (14-36) U/L ALT (4-34) U/L Total Protein (6.3-8.2) g/dL Albumin (3.5-5.0) g/dL 03/31/23 03/31/23 03/31/23 Range/Units 01:58 03:10 04:08 WBC (3.8-10.6) k/uL RBC (3.80-5.40) m/uL Hgb (11.4-16.0) gm/dL Hct (34.0-46.0) % RDW (11.5-15.5) % Neutrophils # (1.3-7.7) k/uL APTT (22.0-30.0) sec ABG pCO2 (35-45) mmHg ABG HCO3 (21-25) mmol/L ABG Total CO2 (19-24) mmol/L ABG O2 Saturation (94-97) % BUN (7-17) mg/dL Creatinine (0.52-1.04) mg/dL Glucose (74-99) mg/dL POC Glucose (mg/dL) 160 H 171 H 191 H (70-110) mg/dL Calcium (8.4-10.2) mg/dL AST (14-36) U/L ALT (4-34) U/L Total Protein (6.3-8.2) g/dL Albumin (3.5-5.0) g/dL 03/31/23 03/31/23 03/31/23 Range/Units 04:10 04:10 04:53 WBC 15.0 H (3.8-10.6) k/uL RBC 2.85 L (3.80-5.40) m/uL Hgb 8.3 L (11.4-16.0) gm/dL Hct 25.1 L (34.0-46.0) % RDW 15.7 H (11.5-15.5) % Neutrophils # 12.5 H (1.3-7.7) k/uL APTT (22.0-30.0) sec ABG pCO2 (35-45) mmHg ABG HCO3 (21-25) mmol/L ABG Total CO2 (19-24) mmol/L ABG O2 Saturation (94-97) % BUN 51 H (7-17) mg/dL Creatinine 1.59 H (0.52-1.04) mg/dL Glucose 172 H (74-99) mg/dL POC Glucose (mg/dL) 206 H (70-110) mg/dL Calcium 8.3 L (8.4-10.2) mg/dL AST 963 H (14-36) U/L ALT 149 H (4-34) U/L Total Protein 4.5 L (6.3-8.2) g/dL Albumin 2.5 L (3.5-5.0) g/dL 03/31/23 03/31/23 03/31/23 Range/Units 05:15 05:37 06:00 WBC (3.8-10.6) k/uL RBC (3.80-5.40) m/uL Hgb (11.4-16.0) gm/dL Hct (34.0-46.0) % RDW (11.5-15.5) % Neutrophils # (1.3-7.7) k/uL APTT 54.5 H (22.0-30.0) sec ABG pCO2 49 H (35-45) mmHg ABG HCO3 28 H (21-25) mmol/L ABG Total CO2 30 H (19-24) mmol/L ABG O2 Saturation 98.1 H (94-97) % BUN (7-17) mg/dL Creatinine (0.52-1.04) mg/dL Glucose (74-99) mg/dL POC Glucose (mg/dL) 204 H (70-110) mg/dL Calcium (8.4-10.2) mg/dL AST (14-36) U/L ALT (4-34) U/L Total Protein (6.3-8.2) g/dL Albumin (3.5-5.0) g/dL 03/31/23 03/31/23 03/31/23 Range/Units 06:57 08:00 09:13 WBC (3.8-10.6) k/uL RBC (3.80-5.40) m/uL Hgb (11.4-16.0) gm/dL Hct (34.0-46.0) % RDW (11.5-15.5) % Neutrophils # (1.3-7.7) k/uL APTT (22.0-30.0) sec ABG pCO2 (35-45) mmHg ABG HCO3 (21-25) mmol/L ABG Total CO2 (19-24) mmol/L ABG O2 Saturation (94-97) % BUN (7-17) mg/dL Creatinine (0.52-1.04) mg/dL Glucose (74-99) mg/dL POC Glucose (mg/dL) 205 H 194 H 181 H (70-110) mg/dL Calcium (8.4-10.2) mg/dL AST (14-36) U/L ALT (4-34) U/L Total Protein (6.3-8.2) g/dL Albumin (3.5-5.0) g/dL 03/31/23 03/31/23 Range/Units 09:49 11:30 WBC (3.8-10.6) k/uL RBC (3.80-5.40) m/uL Hgb (11.4-16.0) gm/dL Hct (34.0-46.0) % RDW (11.5-15.5) % Neutrophils # (1.3-7.7) k/uL APTT (22.0-30.0) sec ABG pCO2 (35-45) mmHg ABG HCO3 (21-25) mmol/L ABG Total CO2 (19-24) mmol/L ABG O2 Saturation (94-97) % BUN (7-17) mg/dL Creatinine (0.52-1.04) mg/dL Glucose (74-99) mg/dL POC Glucose (mg/dL) 173 H 162 H (70-110) mg/dL Calcium (8.4-10.2) mg/dL AST (14-36) U/L ALT (4-34) U/L Total Protein (6.3-8.2) g/dL Albumin (3.5-5.0) g/dL Microbiology - Last 24 Hours (Table) 03/29/23 06:13 Blood Culture - Preliminary Blood 03/28/23 23:20 Gram Stain - Final Sputum Sputum Culture - Final 03/29/23 08:00 Urine Culture - Final Urine,Voided Assessment and Plan Assessment: Impression: Acute hypoxic, and hypercapnic respiratory failure, exact etiology is not clear, but strongly suspect either pulmonary embolism or fat embolism as a complication from a right comminuted fracture status post repair postoperative day #3 Hypotension, likely hypovolemic in nature or could be related to pulmonary embolism. Acute blood loss anemia patient received a 3 units of packed RBCs so far, hemoglobin is presently 8.8, no active bleeding noted. Acute kidney injury, improving over the last 24 hours Acute lactic acidemia secondary to hypotension and hypoperfusion strongly doubt sepsis. Shock liver secondary to hypotension, improving. Over the last 24 hours History of previous right total knee replacement Morbid obesity History of obstructive sleep apnea syndrome History of bilateral meniscectomies Ex-smoker Recommendation: Continue ventilatory support Continue hemodynamic support, presently on norepinephrine at 0.11 mcg/kg/m being titrated. Continue heparin for now although the venous Doppler is negative, we will avoid CT angiogram of the chest for now and address once her renal functioning is back to normal Cut down on fentanyl and on propofol as much as possible and hopefully assess mental status today on a lower dose of sedation Continue enteral feeding/nutritional support Continue GI and DVT prophylaxis Continue Rocephin for now check urine cultures and sputum cultures as well as blood cultures Continue insulin infusion for now and maintain blood sugars noted to 150 up to 200 Patient is not ready for any form of weaning at this point Continue IV fluid at 50 mL per hour and avoid diuretics for now her renal functioning and her urine output seems to be improving steadily Patient remains critically ill. We will continue to follow. Critical care time is over 30 Overall prognosis remains guarded. Time with Patient: Greater than 30
[2023-03-31 12:17] LABS: Glucose,Whole Blood 139 mg/dL (70-110)
[2023-03-31] MEDS: HYDROcodone/APAP 5-325MG 1 EACH TAB PO PRN (13:08)
[2023-03-31] MEDS: LORazepam 0.5 MG TAB PO PRN ×2 (13:11→19:13)
[2023-03-31] MEDS: HEPARIN SOD,PORK IN 0.45% NACL 25,000 UNIT in 0.45% NACL 1 250ML.BAG IV SCH (13:13)
[2023-03-31 13:28] LABS: Glucose,Whole Blood 175 mg/dL (70-110)
[2023-03-31 14:53] LABS: Glucose,Whole Blood 178 mg/dL (70-110)
--- NOTE | 2023-03-31 15:20 | P.PN ---
Subjective Progress Note Date: 03/31/23 This patient is a 72- year old female who is status-post right revision distal femoral replacing hinge for comminuted periprosthetic distal femur fracture on 03/28/23. Today is post-operative day #1. Patient is examined bedside in the ICU with Dr. Stack. Patient remains intubated. Patient has received 2 units of PRBCs post- op, hemoglobin has resulted as 6.7 this morning, therefore an additional unit of PRBCs has been ordered. Arterial line has been placed. Nephrology has been consulted due to hyperkalemia and acute kidney injury. Doppler ultrasound of the bilateral lower extremities has been obtained this morning, which showed no acute DVT although was relatively non-diagnostic in some areas due to body habitus. Heparin drip has been initiated per Dr. Babcock. 03/31/23: Patient is examined bedside. She remains intubated and sedated in the ICU. Per nursing, no acute events overnight. There are plans to wean her sedation to assess mental status. Prevena wound vac and knee immobilizer remain in place over right knee. Objective - Vital Signs Vital signs: Vital Signs Temp 99.2 F 03/31/23 13:00 Pulse 88 03/31/23 14:45 Resp 32 H 03/31/23 14:45 BP 135/52 03/31/23 07:00 Pulse Ox 98 03/31/23 14:45 FiO2 50 03/31/23 12:00 Intake & Output 03/30/23 03/31/23 03/31/23 18:59 06:59 18:59 Intake Total 0569.707 8596.839 863.033 Output Total 1100 1195 980 Balance 704.341 175.839 -116.967 Weight 129.4 kg 131.9 kg Intake: IV 680 100 110 Dextrose 5% in Water 1, 150 000 ml @ 50 mls/hr IV . Q23H [facility] with Sodium Bicarb (1 Meq/ml) 150 ml Rx#:[id number] Invasive Line 9 30 60 Sodium Chloride 0.9% 1, 450 50 000 ml @ 50 mls/hr IV . Q20H [facility] Rx#:[id number] cefTRIAXone 1 gm In 50 50 50 Sodium Chloride 0.9% 50 ml @ 100 mls/hr IVPB Q12HR [facility] Rx#:[id number] Intake, IV Titration 715.341 861.839 578.033 Amount Cisatracurium 200 mg In 51.067 Sodium Chloride 0.9% 180 ml @ 1 MCG/KG/MIN 6.94 mls/hr IV .Q24H [facility] Rx#: [id number] Heparin Sod,Pork in 0.45% 250.000 218.692 NaCl 25,000 unit In 0.45 % NaCl 1 250ml.bag @ 8.65 UNITS/KG/HR 10.005 mls/ hr IV .Q24H [facility] Rx#: [id number] Insulin Regular 100 unit 106.464 47.515 46.676 In Sodium Chloride 0.9% 100 ml @ Titrate IV .Q0M [facility] Rx#:[id number] Norepinephrine 32 mg In 32.207 106.956 31.376 Sodium Chloride 0.9% 218 ml @ 0.03 MCG/KG/MIN 1. 627 mls/hr IV .Q24H [facility] Rx#:[id number] Sodium Chloride 0.9% 80 54.944 120.199 59.376 ml @ 0.5 MCG/KG/HR 5.783 mls/hr IV .[id number] [facility] with fentaNYL (PF) 1,000 mcg Rx#:[id number] propofoL 1,000 mg In 470.659 337.169 221.913 Empty Bag 1 bag @ 15 MCG/ KG/MIN 10.41 mls/hr IV . Q9H37M [facility] Rx#:[id number] Tube Feeding 319 319 145 Other 90 90 30 Output: Drainage 50 40 Right Knee 50 40 Urine 1100 1145 940 Other: Voiding Method Indwelling Catheter Indwelling Catheter Indwelling Catheter # Bowel Movements 0 ABP, PAP, CO, CI - Last Documented Arterial Blood Pressure 101/40 - Exam On examination, patient is intubated. On inspection of the right knee, there is Prevena wound vac in place that has a good seal at this time. Hemovac drain is removed bedside during examination today. There is moderate swelling of the knee. The right lower extremity is warm and well perfused. Dorsalis pedis pulse easily palpable. - Labs CBC & Chem 7: 03/31/23 04:10 03/31/23 04:10 Labs: Abnormal Lab Results - Last 24 Hours (Table) 03/30/23 03/30/23 03/30/23 Range/Units 16:04 16:04 16:14 WBC 15.4 H (3.8-10.6) k/uL RBC 2.95 L (3.80-5.40) m/uL Hgb 8.8 L (11.4-16.0) gm/dL Hct 25.9 L (34.0-46.0) % RDW (11.5-15.5) % Neutrophils # 12.9 H (1.3-7.7) k/uL APTT (22.0-30.0) sec ABG pCO2 (35-45) mmHg ABG HCO3 (21-25) mmol/L ABG Total CO2 (19-24) mmol/L ABG O2 Saturation (94-97) % BUN 53 H (7-17) mg/dL Creatinine 1.99 H (0.52-1.04) mg/dL Glucose 131 H (74-99) mg/dL POC Glucose (mg/dL) 150 H (70-110) mg/dL Calcium 7.8 L (8.4-10.2) mg/dL AST 1842 H (14-36) U/L ALT 208 H (4-34) U/L Total Protein 4.6 L (6.3-8.2) g/dL Albumin 2.6 L (3.5-5.0) g/dL 03/30/23 03/30/23 03/30/23 Range/Units 17:29 18:03 19:22 WBC (3.8-10.6) k/uL RBC (3.80-5.40) m/uL Hgb (11.4-16.0) gm/dL Hct (34.0-46.0) % RDW (11.5-15.5) % Neutrophils # (1.3-7.7) k/uL APTT (22.0-30.0) sec ABG pCO2 (35-45) mmHg ABG HCO3 (21-25) mmol/L ABG Total CO2 (19-24) mmol/L ABG O2 Saturation (94-97) % BUN (7-17) mg/dL Creatinine (0.52-1.04) mg/dL Glucose (74-99) mg/dL POC Glucose (mg/dL) 119 H 119 H 177 H (70-110) mg/dL Calcium (8.4-10.2) mg/dL AST (14-36) U/L ALT (4-34) U/L Total Protein (6.3-8.2) g/dL Albumin (3.5-5.0) g/dL 03/30/23 03/30/23 03/30/23 Range/Units 20:59 22:02 22:57 WBC (3.8-10.6) k/uL RBC (3.80-5.40) m/uL Hgb (11.4-16.0) gm/dL Hct (34.0-46.0) % RDW (11.5-15.5) % Neutrophils # (1.3-7.7) k/uL APTT (22.0-30.0) sec ABG pCO2 (35-45) mmHg ABG HCO3 (21-25) mmol/L ABG Total CO2 (19-24) mmol/L ABG O2 Saturation (94-97) % BUN (7-17) mg/dL Creatinine (0.52-1.04) mg/dL Glucose (74-99) mg/dL POC Glucose (mg/dL) 186 H 233 H 204 H (70-110) mg/dL Calcium (8.4-10.2) mg/dL AST (14-36) U/L ALT (4-34) U/L Total Protein (6.3-8.2) g/dL Albumin (3.5-5.0) g/dL 03/31/23 03/31/23 03/31/23 Range/Units 00:00 01:02 01:58 WBC (3.8-10.6) k/uL RBC (3.80-5.40) m/uL Hgb (11.4-16.0) gm/dL Hct (34.0-46.0) % RDW (11.5-15.5) % Neutrophils # (1.3-7.7) k/uL APTT (22.0-30.0) sec ABG pCO2 (35-45) mmHg ABG HCO3 (21-25) mmol/L ABG Total CO2 (19-24) mmol/L ABG O2 Saturation (94-97) % BUN (7-17) mg/dL Creatinine (0.52-1.04) mg/dL Glucose (74-99) mg/dL POC Glucose (mg/dL) 167 H 156 H 160 H (70-110) mg/dL Calcium (8.4-10.2) mg/dL AST (14-36) U/L ALT (4-34) U/L Total Protein (6.3-8.2) g/dL Albumin (3.5-5.0) g/dL 03/31/23 03/31/23 03/31/23 Range/Units 03:10 04:08 04:10 WBC 15.0 H (3.8-10.6) k/uL RBC 2.85 L (3.80-5.40) m/uL Hgb 8.3 L (11.4-16.0) gm/dL Hct 25.1 L (34.0-46.0) % RDW 15.7 H (11.5-15.5) % Neutrophils # 12.5 H (1.3-7.7) k/uL APTT (22.0-30.0) sec ABG pCO2 (35-45) mmHg ABG HCO3 (21-25) mmol/L ABG Total CO2 (19-24) mmol/L ABG O2 Saturation (94-97) % BUN (7-17) mg/dL Creatinine (0.52-1.04) mg/dL Glucose (74-99) mg/dL POC Glucose (mg/dL) 171 H 191 H (70-110) mg/dL Calcium (8.4-10.2) mg/dL AST (14-36) U/L ALT (4-34) U/L Total Protein (6.3-8.2) g/dL Albumin (3.5-5.0) g/dL 03/31/23 03/31/23 03/31/23 Range/Units 04:10 04:53 05:15 WBC (3.8-10.6) k/uL RBC (3.80-5.40) m/uL Hgb (11.4-16.0) gm/dL Hct (34.0-46.0) % RDW (11.5-15.5) % Neutrophils # (1.3-7.7) k/uL APTT (22.0-30.0) sec ABG pCO2 49 H (35-45) mmHg ABG HCO3 28 H (21-25) mmol/L ABG Total CO2 30 H (19-24) mmol/L ABG O2 Saturation 98.1 H (94-97) % BUN 51 H (7-17) mg/dL Creatinine 1.59 H (0.52-1.04) mg/dL Glucose 172 H (74-99) mg/dL POC Glucose (mg/dL) 206 H (70-110) mg/dL Calcium 8.3 L (8.4-10.2) mg/dL AST 963 H (14-36) U/L ALT 149 H (4-34) U/L Total Protein 4.5 L (6.3-8.2) g/dL Albumin 2.5 L (3.5-5.0) g/dL 03/31/23 03/31/23 03/31/23 Range/Units 05:37 06:00 06:57 WBC (3.8-10.6) k/uL RBC (3.80-5.40) m/uL Hgb (11.4-16.0) gm/dL Hct (34.0-46.0) % RDW (11.5-15.5) % Neutrophils # (1.3-7.7) k/uL APTT 54.5 H (22.0-30.0) sec ABG pCO2 (35-45) mmHg ABG HCO3 (21-25) mmol/L ABG Total CO2 (19-24) mmol/L ABG O2 Saturation (94-97) % BUN (7-17) mg/dL Creatinine (0.52-1.04) mg/dL Glucose (74-99) mg/dL POC Glucose (mg/dL) 204 H 205 H (70-110) mg/dL Calcium (8.4-10.2) mg/dL AST (14-36) U/L ALT (4-34) U/L Total Protein (6.3-8.2) g/dL Albumin (3.5-5.0) g/dL 03/31/23 03/31/23 03/31/23 Range/Units 08:00 09:13 09:49 WBC (3.8-10.6) k/uL RBC (3.80-5.40) m/uL Hgb (11.4-16.0) gm/dL Hct (34.0-46.0) % RDW (11.5-15.5) % Neutrophils # (1.3-7.7) k/uL APTT (22.0-30.0) sec ABG pCO2 (35-45) mmHg ABG HCO3 (21-25) mmol/L ABG Total CO2 (19-24) mmol/L ABG O2 Saturation (94-97) % BUN (7-17) mg/dL Creatinine (0.52-1.04) mg/dL Glucose (74-99) mg/dL POC Glucose (mg/dL) 194 H 181 H 173 H (70-110) mg/dL Calcium (8.4-10.2) mg/dL AST (14-36) U/L ALT (4-34) U/L Total Protein (6.3-8.2) g/dL Albumin (3.5-5.0) g/dL 03/31/23 03/31/23 03/31/23 Range/Units 11:30 12:16 13:26 WBC (3.8-10.6) k/uL RBC (3.80-5.40) m/uL Hgb (11.4-16.0) gm/dL Hct (34.0-46.0) % RDW (11.5-15.5) % Neutrophils # (1.3-7.7) k/uL APTT (22.0-30.0) sec ABG pCO2 (35-45) mmHg ABG HCO3 (21-25) mmol/L ABG Total CO2 (19-24) mmol/L ABG O2 Saturation (94-97) % BUN (7-17) mg/dL Creatinine (0.52-1.04) mg/dL Glucose (74-99) mg/dL POC Glucose (mg/dL) 162 H 139 H 175 H (70-110) mg/dL Calcium (8.4-10.2) mg/dL AST (14-36) U/L ALT (4-34) U/L Total Protein (6.3-8.2) g/dL Albumin (3.5-5.0) g/dL 03/31/23 Range/Units 14:46 WBC (3.8-10.6) k/uL RBC (3.80-5.40) m/uL Hgb (11.4-16.0) gm/dL Hct (34.0-46.0) % RDW (11.5-15.5) % Neutrophils # (1.3-7.7) k/uL APTT (22.0-30.0) sec ABG pCO2 (35-45) mmHg ABG HCO3 (21-25) mmol/L ABG Total CO2 (19-24) mmol/L ABG O2 Saturation (94-97) % BUN (7-17) mg/dL Creatinine (0.52-1.04) mg/dL Glucose (74-99) mg/dL POC Glucose (mg/dL) 178 H (70-110) mg/dL Calcium (8.4-10.2) mg/dL AST (14-36) U/L ALT (4-34) U/L Total Protein (6.3-8.2) g/dL Albumin (3.5-5.0) g/dL Microbiology - Last 24 Hours (Table) 03/29/23 06:13 Blood Culture - Preliminary Blood 03/28/23 23:20 Gram Stain - Final Sputum Sputum Culture - Final 03/29/23 08:00 Urine Culture - Final Urine,Voided Assessment and Plan Assessment: Status-post right revision distal femoral replacing hinge for comminuted periprosthetic distal femur fracture on 03/28/23. Post-op day #3. Plan: - Appreciate medical and ICU management per multiple medical specialities including pulmonology/critical care, nephrology, internal medicine. - Keep Prevena wound vac in place. Do not remove. She may weight bear to tolerance on right lower extremity once extubated. Hemovac drain was removed bedside today. - Patient was started on Heparin per ICU team. - We will follow patient very closely and make recommendations as needed.
[2023-03-31 16:05] LABS: Glucose,Whole Blood 153 mg/dL (70-110)
[2023-03-31 17:19] LABS: Glucose,Whole Blood 124 mg/dL (70-110)
[2023-03-31 18:14] LABS: Glucose,Whole Blood 159 mg/dL (70-110)
[2023-03-31] MEDS ORDERED: LACTULOSE 20 GM/30 ML CUP PO ONE (18:46)
[2023-03-31 19:03] LABS: Glucose,Whole Blood 187 mg/dL (70-110)
[2023-03-31 19:58] LABS: Glucose,Whole Blood 190 mg/dL (70-110)
[2023-03-31] MEDS: DOXYCYCLINE 100 MG CAP PO SCH (20:02)
[2023-03-31] MEDS: SENNOSIDES-DOCUSATE SODIUM 1 EACH TAB PO SCH (20:02)
[2023-03-31] MEDS: OLANZapine 5 MG TAB PO SCH (20:03)
[2023-03-31 21:12] LABS: Glucose,Whole Blood 154 mg/dL (70-110)
--- NOTE | 2023-03-31 21:51 | P.PN ---
Progress Note - Text Progress Note Date: 03/31/23 - Chief Complaint Right leg injury History of presenting complaint: very pleasant 72-year-old patient of Dr. Persaud. Chronic stable medical conditions include diabetes, hyperlipidemia, hypertension, primary osteoarthritis, peripheral neuropathy, bilateral breast cancer with bilateral mastectomy, IBS, diverticulosis, chronic low back arthritis. Anxiety depression. Diagnosis of ulcerative colitis for about 15 years. On Asacol 800 mg 3 times a day. In November 2020 did undergo coloscopy by Dr. Moreno. Normal- appearing colon. Patient does follow with Dr. Angi Stallings. On an average has about 10 bowel movements a day. Present for years. Patient today was at the [facility]. Troponin went and fell down. Computed tomography scan showing a comminuted fracture distal metaphyseal femur adjacent to the knee processes. Some external rotation. Right lower extremity - brace. Patient's able to get about the house.. No chest pain or palpitation. March 27: Reclining bed. Pain control. Oral intake fair. Pending surgery tomorrow. Discussed with patient has would've the bedside. March 15: Patient seen by me this morning prior to surgery. In bed. Comfortable. Nothing by mouth. Pending surgery this afternoon. March 29: ICU. Yesterday patient underwent right revision total knee replacement the distal femoral replacement age for periprosthetic distal femur fracture. Estimated blood loss was about 600 mL. In the perioperative area patient blood pressure was running low. Patient was transferred to the ICU. Patient did receive 2 units of blood yesterday. Today patient is intubated. FiO2 85% and a PEEP of 10. Drips include we will affect, propofol, Nimbex. Patient started IV heparin for underlying suspicion of pulmonary embolism. Accu-Cheks running high has put on insulin drip. Oral gastric tube. Patient's and 2 daughters at the bedside. Discussed at length. Patient renal function also worsened. Hyperkalemia. Given bicarbonate. Being followed by donor recruiter, nephrology. Another unit of blood pending. Hemoglobin this morning 6.7. Patient has increased right-sided heart pressures suspicious for therefore PE/fat embolism. March 30: ICU. Spiked a fever. Advair 250/50 5 and a PEEP of 8. On the ventilator. Sinus rhythm. Drips include Nimbex, propofol, IV heparin, IV insulin, IV norepinephrine. Right leg in a brace. IV ceftriaxone. March 31: ICU. On the ventilator. FiO2 45 PEEP of 5. 2 feeding at 30 mL an hour. Telemetry: Sinus rhythm. Drips include insulin, propofol, epinephrine, IV heparin. IV insulin. Cultures have been negative up to now. Remains in empirically on IV ceftriaxone. Active Medications Hydrocodone Bitart/Acetaminophen (Hydrocodone/Apap 5-325mg 1 Each Tab) 1 each PO Q4HR PRN PRN Reason: Moderate Pain (Scale 4 to 6) Last Admin: 03/31/23 13:08 Dose: 1 each Albuterol/Ipratropium (Ipratropium-Albuterol 3 Ml Neb) 3 ml INHALATION RT-Q4H [facility] Last Admin: 03/31/23 21:11 Dose: 3 ml Artificial Tears (Artificial Tears-Hypromellose Drops 15 Ml Btl) 2 drops BOTH EYES Q4HR [facility] Last Admin: 03/31/23 19:59 Dose: Not Given Aspirin (Aspirin 81 Mg) 81 mg PO BID [facility] Last Admin: 03/31/23 20:02 Dose: 81 mg Chlorhexidine Gluconate (Chlorhexidine Gluconate 15 Ml Cup) 15 ml MUCOUS MEM BID [facility] Last Admin: 03/31/23 20:02 Dose: 15 ml Dextrose/Water (Dextrose 50% Syringe 50 Ml) 25 ml IVP PER PROTOCOL PRN; Protocol PRN Reason: Hypoglycemia Dextrose/Water (Dextrose 50% Syringe 50 Ml) 50 ml IVP PER PROTOCOL PRN; Protocol PRN Reason: Hypoglycemia Doxycycline Monohydrate (Doxycycline 100 Mg Cap) 100 mg PO BID [facility]; Protocol Last Admin: 03/31/23 20:02 Dose: 100 mg Ferrous Sulfate (Ferrous Sulfate 325 Mg Tab) 325 mg PO DAILY [facility] Last Admin: 03/31/23 09:30 Dose: 325 mg Fluoxetine HCl (Fluoxetine Hcl 20 Mg Cap) 40 mg PO DAILY [facility] Last Admin: 03/31/23 09:30 Dose: 40 mg Heparin Sodium (Porcine) (Heparin Sodium 1,000 Un/Ml (10ml Vl)) 0 unit IV PER PROTOCOL PRN; Protocol PRN Reason: Low PTT Last Admin: 03/30/23 02:08 Dose: 2,892 unit Hydromorphone HCl (Hydromorphone 0.5 Mg/0.5 Ml Syringe) 0.125 mg IVP Q3HR PRN PRN Reason: Pain Scale 1 to 3 Hydromorphone HCl (Hydromorphone 0.5 Mg/0.5 Ml Syringe) 0.5 mg IVP Q3HR PRN PRN Reason: Pain Scale 7 to 10 Last Admin: 03/31/23 19:10 Dose: 0.5 mg Hydromorphone HCl (Hydromorphone 0.5 Mg/0.5 Ml Syringe) 0.25 mg IVP Q3HR PRN PRN Reason: Pain Scale 4 to 6 Hydromorphone HCl (Hydromorphone 1 Mg/Ml 1 Ml Syringe) 1 mg IVP Q2HR PRN PRN Reason: Pain Propofol 1,000 mg/ IV Solution 100 mls @ 10.41 mls/hr IV .Q9H37M [facility]; Protocol Last Admin: 03/31/23 20:34 Dose: 40 mcg/kg/min, 27.76 mls/hr Insulin Human Regular 100 unit (/ Sodium Chloride) 100 mls @ 0 mls/hr IV .Q0M [facility]; Protocol Last Titration: 03/31/23 19:58 Dose: 11.17 units/hr, 11.17 mls/hr Heparin Sodium/Sodium Chloride (25,000 unit/ Sodium Chloride) 250 mls @ 10.005 mls/hr IV .Q24H [facility]; Protocol Last Admin: 03/31/23 13:13 Dose: 13.65 units/kg/hr, 15.79 mls/hr Norepinephrine Bitartrate 32 (mg/ Sodium Chloride) 250 mls @ 1.627 mls/hr IV .Q24H [facility]; Protocol Last Titration: 03/31/23 20:35 Dose: 0.09 mcg/kg/min, 4.88 mls/hr Ceftriaxone Sodium 1 gm/ (Sodium Chloride) 50 mls @ 100 mls/hr IVPB Q12HR [facility]; Protocol Last Admin: 03/31/23 20:03 Dose: 100 mls/hr Sodium Chloride (Saline 0.9%) 1,000 mls @ 50 mls/hr IV .Q20H [facility] Last Admin: 03/31/23 09:04 Dose: 50 mls/hr Lorazepam (Lorazepam 0.5 Mg Tab) 0.5 mg PO Q6HR PRN PRN Reason: Anxiety Last Admin: 03/31/23 19:13 Dose: 0.5 mg Miscellaneous Information (Potassium Replacement Protocol 1 Each Misc) 1 each MISCELLANE DAILY PRN; Protocol PRN Reason: Per Protocol Naloxone HCl (Naloxone 0.4 Mg/Ml 1 Ml Vial) 0.2 mg IV Q2M PRN PRN Reason: Opioid Reversal Olanzapine (Olanzapine 5 Mg Tab) 5 mg PO HS [facility] Last Admin: 03/31/23 20:03 Dose: 5 mg Ondansetron HCl (Ondansetron 4 Mg/2 Ml Vial) 4 mg IVP Q8HR PRN PRN Reason: Nausea And Vomiting Pantoprazole Sodium (Pantoprazole 40 Mg/10 Ml Vial) 40 mg IV DAILY [facility] Last Admin: 03/31/23 09:30 Dose: 40 mg Senna/Docusate Sodium (Sennosides-Docusate Sodium 1 Each Tab) 2 each PO HS [facility] Last Admin: 03/31/23 20:02 Dose: 2 each Past medical history to include: Diabetes mellitus type 2, hyperlipidemia, hypertension, osteoarthritis, peripheral neuropathy, bilateral breast cancer with bilateral mastectomies, ulcerative colitis-colonoscopy has shown normal colon and biopsy was negative., diverticulosis, chronic low back pain and arthritis, anxiety depression. COVID- 19 Social history: . Smoked for 41 years stopped in 2005. No alcohol Physical examination: VITAL SIGNS: Afebrile, 101, 32, 126/46, 95% on the ventilator/45% GENERAL: BMI 46.6, reclining intubated. OG tube EYES: Pupils equal. Conjunctiva normal. HEENT: External appearance of nose and ears normal, oral cavity OG tube NECK: JVD unable to assess; masses not palpable. HEART: First and second heart sounds are normal; no edema. LUNGS: Respiratory rate increased, decreased breath sounds ABDOMEN: Soft, nontender, liver spleen not palpable, no masses palpable. PSYCH: Sedated MUSCULAR skeletal: Evidence of OA especially in the hands . Right lower extremity in a brace INVESTIGATIONS, reviewed in the clinical context: March 31: White count 15 hemoglobin 8.3 platelets 302 potassium 4.3 BUN 51 and creatinine 1.59 AST 963 ALT 141 pro calcitonin 1.91 March 30: White count 15.4 hemoglobin 8.8 platelets 298 potassium 3.6 BUN 53 creatinine 1.99 AST 1842 ALT 208 2-D echocardiogram: Moderate increased LVH. EF 50-55%. Severe right ventricle dilatation generalized right ventricle hypokinesis. Severe pulmonary hypertension. Moderate to severe tricuspid regurgitation. Ultrasound venous Doppler lower extremity: Limited views. No obvious DVT. Ultrasound kidney: Right kidney: Mild renal cortical thinning. Left kidney obscured. March 29: White count 20.6 hemoglobin 6.7 platelets 300 ABG: PH 7.13 pCO2 62. Potassium 5.1 BUN 40 creatinine 1.91 blood glucose 372 UA: Noted March 28: White count 9.1 hemoglobin 9.5 potassium 4.4 BUN 36 creatinine 1.37 White count 12.2 hemoglobin 11.5 platelets 510 sodium 140 potassium 4 BUN 34 creatinine 1.9 EKG tracing personally reviewed by me-normal sinus rhythm. Chest x-ray film personally reviewed by me-: Portable. No obvious infiltrate Knee x-ray/femur CT: Comminuted fracture distal metadiaphyseal femur adjacent to a knee processes. Displacement of the distal fracture fragment from the proximal fracture Assessment and plan: -Fall leading to acute Comminuted fracture distal metadiaphyseal femur adjacent to a knee processes. Displacement of the distal fracture fragment from the proximal fracture. March 28:right revision total knee replacement the distal femoral replacement age for periprosthetic distal femur fracture. By Dr. Stack. EBL 600 mL -Acute severe blood loss anemia from surgery Patient received 3 units of blood -Hyperkalemia from acute kidney injury: Better -IV heparin monitoring Follow PTT -Acute cor pulmonale with underlying suspicious for fat embolism/pulmonary embolism with acute right ventricle dilatation and moderate to severe TR. -Acute hypotensive shock from blood loss anemia.: Slow to respond Receive 3 units of blood. IV levo fed -Acute kidney injury likely cardiorenal syndrome/ATN. 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 / Amaryl. Insulin drip -Hyperlipidemia Lipitor, TriCor -Anxiety not otherwise specified Klonopin 0.5 mg 3 times a day -Depression Zyprexa 5 mg daily at bedtime, Prozac 40 mg a day -Hyperuricemia Allopurinol -Essential hypertension, currently running low and -Acute hepatitis likely ischemic, some improvement -Primary osteoarthritis Pain medications when necessary -Chronic kidney disease stage III from diabetic nephropathy and hypertensive nephrosclerosis Follow renal function ICU. Critically ill. Current drips include levo fed, propofol,. IV heparin. IV insulin. OG tube. Intubated. Follow labs closely. Empirically on IV ceftriaxone Thank you Dr. Stack
[2023-03-31 22:09] LABS: Glucose,Whole Blood 128 mg/dL (70-110)
[2023-03-31] MEDS: HYDROmorphone 1 MG/ML 1 ML SYRINGE IVP PRN (23:00)
[2023-03-31 23:24] LABS: Glucose,Whole Blood 174 mg/dL (70-110)
[2023-04-01 00:05] LABS: Glucose,Whole Blood 197 mg/dL (70-110)
[2023-04-01] MEDS: ARTIFICIAL TEARS-HYPROMELLOSE DROPS 15 ML BTL BOTH EYES SCH ×2 (00:08→05:09)
[2023-04-01] MEDS: IPRATROPIUM-ALBUTEROL 3 ML NEB INHALATION SCH ×6 (00:12→20:03)
[2023-04-01 01:04] LABS: Glucose,Whole Blood 193 mg/dL (70-110)
[2023-04-01 01:57] LABS: Glucose,Whole Blood 172 mg/dL (70-110)
[2023-04-01 03:28] LABS: Glucose,Whole Blood 136 mg/dL (70-110)
[2023-04-01 04:06] LABS: Glucose,Whole Blood 161 mg/dL (70-110)
[2023-04-01 04:29] LABS: Anisocytosis Slight; Basophils # (A) 0.1 k/uL (0-0.2); Basophils % (A) 0 %; Eosinophils # (A) 0.1 k/uL (0-0.7); Eosinophils % (A) 1 %; HCT 24.8 % (34.0-46.0); HGB 7.9 gm/dL (11.4-16.0); Hypochromasia Slight; Lymphocytes # (A) 2.5 k/uL (1.0-4.8); Lymphocytes % (A) 15 %; MCH 28.4 pg (25.0-35.0); MCHC 31.9 g/dL (31.0-37.0); MCV 89.1 fL (80.0-100.0); Mean Platelet Volume 8.5; Monocytes # (A) 1.2 k/uL (0-1.0); Monocytes % (A) 7 %; Neutrophils # (A) 12.8 k/uL (1.3-7.7); Neutrophils % (A) 76 %; Platelet Count 336 k/uL (150-450); RBC 2.79 m/uL (3.80-5.40); RDW 16.3 % (11.5-15.5); WBC 16.9 k/uL (3.8-10.6)
[2023-04-01 04:43] LABS: Albumin 2.5 g/dL (3.5-5.0); Calcium 8.6 mg/dL (8.4-10.2); Potassium 4.9 mmol/L (3.5-5.1); Total Bilirubin 0.7 mg/dL (0.2-1.3); Total Protein 4.5 g/dL (6.3-8.2)
[2023-04-01] MEDS: HYDROmorphone 1 MG/ML 1 ML SYRINGE IVP PRN ×2 (04:54→23:13)
[2023-04-01] MEDS: LORazepam 0.5 MG TAB PO PRN (05:03)
[2023-04-01 05:12] LABS: Glucose,Whole Blood 221 mg/dL (70-110)
[2023-04-01] MEDS: HEPARIN SOD,PORK IN 0.45% NACL 25,000 UNIT in 0.45% NACL 1 250ML.BAG IV SCH ×2 (05:41→22:22)
[2023-04-01 06:06] LABS: Glucose,Whole Blood 225 mg/dL (70-110)
[2023-04-01 06:24] LABS: ABG HCO3 23 mmol/L (21-25); ABG Oxygen Saturation 92.5 % (94-97); ABG PCO2 43 mmHg (35-45); ABG PH 7.34 (7.35-7.45); ABG PO2 65 mmHg (83-108); ABG TCO2 24 mmol/L (19-24); Allen Test Performed? Yes
[2023-04-01 07:10] LABS: Glucose,Whole Blood 225 mg/dL (70-110)
[2023-04-01 07:58] LABS: Glucose,Whole Blood 196 mg/dL (70-110)
--- NOTE | 2023-04-01 08:52 | XR ---
EXAMINATION TYPE: XR chest 1V portable DATE OF EXAM: 04/01/2023 COMPARISON: 03/31/2023 HISTORY: Tube placement TECHNIQUE: Single frontal view of the chest is obtained. FINDINGS: ET and NG tube and central line stable. Heart is enlarged and there is bilateral consolida tion and small effusion. Mild interstitial prominence. Biapical pleural thickening but no pneumothora x. IMPRESSION: Bilateral infiltrates greater on the left and small effusion stable. Correlate pneumonia otherwise consider CT
[2023-04-01 08:55] LABS: Glucose,Whole Blood 174 mg/dL (70-110)
[2023-04-01] MEDS: ASPIRIN 81 MG PO SCH ×2 (09:00→20:45)
[2023-04-01] MEDS: FLUoxetine HCL 20 MG CAP PO SCH (09:00)
[2023-04-01] MEDS: CHLORHEXIDINE GLUCONATE 15 ML CUP MUCOUS MEM SCH ×2 (09:00→20:46)
[2023-04-01] MEDS: PANTOPRAZOLE 40 MG/10 ML VIAL IV SCH (09:00)
[2023-04-01] MEDS: INSULIN REGULAR 100 UNIT in SODIUM CHLORIDE 0.9% 100 ML IV SCH (09:07)
[2023-04-01] MEDS: NOREPINEPHRINE 32 MG in SODIUM CHLORIDE 0.9% 218 ML IV SCH ×2 (09:10→18:22)
[2023-04-01] MEDS: DOXYCYCLINE 100 MG CAP PO SCH ×2 (09:48→20:46)
[2023-04-01] MEDS ORDERED: CISATRACURIUM 2 MG/ML 5 ML VIAL IV ONE (09:56)
[2023-04-01] MEDS: FERROUS SULFATE 325 MG TAB PO SCH (10:01)
[2023-04-01 10:18] LABS: Glucose,Whole Blood 162 mg/dL (70-110)
[2023-04-01 11:16] LABS: Glucose,Whole Blood 153 mg/dL (70-110)
[2023-04-01] MEDS ORDERED: FUROSEMIDE 10 MG/ML 4 ML VIAL IV STA (11:22)
--- NOTE | 2023-04-01 11:32 | P.PN ---
Subjective Patient is seen in follow-up for acute kidney injury on chronic kidney disease. Renal function improving. Potassium level normal. On insulin drip. On Levophed. Nonoliguric. Intubated. Underwent bronchoscopy this morning. Vital signs are stable. On Levophed. General: Resting in bed. HEENT: Intubated. LUNGS: Scattered rhonchi. HEART: Rate and Rhythm are regular. ABDOMEN: Soft, no distention. EXTREMITITES: 1 to edema. Objective - Vital Signs Vital signs: Vital Signs Temp 100 F H 04/01/23 08:00 Pulse 100 04/01/23 11:00 Resp 20 04/01/23 11:00 BP 132/52 04/01/23 11:00 Pulse Ox 99 04/01/23 11:00 FiO2 100 04/01/23 11:00 Intake & Output 03/31/23 04/01/23 04/01/23 18:59 06:59 18:59 Intake Total 8647.104 6126.752 484.031 Output Total 1435 1010 530 Balance -254.727 719.752 -45.969 Weight 131.2 kg Intake: IV 170 600 270 Invasive Line 6 30 Invasive Line 9 90 Sodium Chloride 0.9% 1, 250 000 ml @ 50 mls/hr IV . Q20H [facility] Rx#:[id number] Sodium Chloride 0.9% 1, 300 220 000 ml @ 50 mls/hr IV . Q20H [facility] Rx#:[id number] cefTRIAXone 1 gm In 50 50 50 Sodium Chloride 0.9% 50 ml @ 100 mls/hr IVPB Q12HR [facility] Rx#:[id number] Intake, IV Titration 631.273 778.752 185.031 Amount Heparin Sod,Pork in 0.45% 218.692 250 60.265 NaCl 25,000 unit In 0.45 % NaCl 1 250ml.bag @ 8.65 UNITS/KG/HR 10.005 mls/ hr IV .Q24H [facility] Rx#: [id number] Insulin Regular 100 unit 81.992 54.792 14.922 In Sodium Chloride 0.9% 100 ml @ Titrate IV .Q0M [facility] Rx#:[id number] Norepinephrine 32 mg In 38.552 66.292 23.324 Sodium Chloride 0.9% 218 ml @ 0.03 MCG/KG/MIN 1. 627 mls/hr IV .Q24H [facility] Rx#:[id number] Sodium Chloride 0.9% 80 67.811 ml @ 0.5 MCG/KG/HR 5.783 mls/hr IV .H74Q91V [facility] with fentaNYL (PF) 1,000 mcg Rx#:[id number] propofoL 1,000 mg In 224.226 407.668 86.520 Empty Bag 1 bag @ 15 MCG/ KG/MIN 10.41 mls/hr IV . Q9H37M [facility] Rx#:[id number] Tube Feeding 319 261 29 Other 60 90 Output: Gastric Drainage 55 Drainage 40 Right Knee 40 Urine 1395 1010 475 Other: Voiding Method Indwelling Catheter Indwelling Catheter # Bowel Movements 0 ABP, PAP, CO, CI - Last Documented Arterial Blood Pressure 141/57 - Labs CBC & Chem 7: 04/01/23 04:05 04/01/23 04:05 Labs: Abnormal Lab Results - Last 24 Hours (Table) 03/31/23 03/31/23 03/31/23 Range/Units 04:10 11:30 12:16 WBC (3.8-10.6) k/uL RBC (3.80-5.40) m/uL Hgb (11.4-16.0) gm/dL Hct (34.0-46.0) % RDW (11.5-15.5) % Neutrophils # (1.3-7.7) k/uL Monocytes # (0-1.0) k/uL APTT (22.0-30.0) sec ABG pH (7.35-7.45) ABG pO2 (83-108) mmHg ABG O2 Saturation (94-97) % Chloride (98-107) mmol/L BUN (7-17) mg/dL Creatinine (0.52-1.04) mg/dL Glucose (74-99) mg/dL POC Glucose (mg/dL) 162 H 139 H (70-110) mg/dL AST (14-36) U/L ALT (4-34) U/L Total Protein (6.3-8.2) g/dL Albumin (3.5-5.0) g/dL Procalcitonin 1.91 H (0.02-0.09) ng/mL 03/31/23 03/31/23 03/31/23 Range/Units 13:26 14:46 16:02 WBC (3.8-10.6) k/uL RBC (3.80-5.40) m/uL Hgb (11.4-16.0) gm/dL Hct (34.0-46.0) % RDW (11.5-15.5) % Neutrophils # (1.3-7.7) k/uL Monocytes # (0-1.0) k/uL APTT (22.0-30.0) sec ABG pH (7.35-7.45) ABG pO2 (83-108) mmHg ABG O2 Saturation (94-97) % Chloride (98-107) mmol/L BUN (7-17) mg/dL Creatinine (0.52-1.04) mg/dL Glucose (74-99) mg/dL POC Glucose (mg/dL) 175 H 178 H 153 H (70-110) mg/dL AST (14-36) U/L ALT (4-34) U/L Total Protein (6.3-8.2) g/dL Albumin (3.5-5.0) g/dL Procalcitonin (0.02-0.09) ng/mL 03/31/23 03/31/23 03/31/23 Range/Units 17:16 18:12 19:01 WBC (3.8-10.6) k/uL RBC (3.80-5.40) m/uL Hgb (11.4-16.0) gm/dL Hct (34.0-46.0) % RDW (11.5-15.5) % Neutrophils # (1.3-7.7) k/uL Monocytes # (0-1.0) k/uL APTT (22.0-30.0) sec ABG pH (7.35-7.45) ABG pO2 (83-108) mmHg ABG O2 Saturation (94-97) % Chloride (98-107) mmol/L BUN (7-17) mg/dL Creatinine (0.52-1.04) mg/dL Glucose (74-99) mg/dL POC Glucose (mg/dL) 124 H 159 H 187 H (70-110) mg/dL AST (14-36) U/L ALT (4-34) U/L Total Protein (6.3-8.2) g/dL Albumin (3.5-5.0) g/dL Procalcitonin (0.02-0.09) ng/mL 03/31/23 03/31/23 03/31/23 Range/Units 19:56 21:11 21:57 WBC (3.8-10.6) k/uL RBC (3.80-5.40) m/uL Hgb (11.4-16.0) gm/dL Hct (34.0-46.0) % RDW (11.5-15.5) % Neutrophils # (1.3-7.7) k/uL Monocytes # (0-1.0) k/uL APTT (22.0-30.0) sec ABG pH (7.35-7.45) ABG pO2 (83-108) mmHg ABG O2 Saturation (94-97) % Chloride (98-107) mmol/L BUN (7-17) mg/dL Creatinine (0.52-1.04) mg/dL Glucose (74-99) mg/dL POC Glucose (mg/dL) 190 H 154 H 128 H (70-110) mg/dL AST (14-36) U/L ALT (4-34) U/L Total Protein (6.3-8.2) g/dL Albumin (3.5-5.0) g/dL Procalcitonin (0.02-0.09) ng/mL 03/31/23 04/01/23 04/01/23 Range/Units 23:22 00:03 01:03 WBC (3.8-10.6) k/uL RBC (3.80-5.40) m/uL Hgb (11.4-16.0) gm/dL Hct (34.0-46.0) % RDW (11.5-15.5) % Neutrophils # (1.3-7.7) k/uL Monocytes # (0-1.0) k/uL APTT (22.0-30.0) sec ABG pH (7.35-7.45) ABG pO2 (83-108) mmHg ABG O2 Saturation (94-97) % Chloride (98-107) mmol/L BUN (7-17) mg/dL Creatinine (0.52-1.04) mg/dL Glucose (74-99) mg/dL POC Glucose (mg/dL) 174 H 197 H 193 H (70-110) mg/dL AST (14-36) U/L ALT (4-34) U/L Total Protein (6.3-8.2) g/dL Albumin (3.5-5.0) g/dL Procalcitonin (0.02-0.09) ng/mL 04/01/23 04/01/23 04/01/23 Range/Units 01:55 03:17 04:05 WBC (3.8-10.6) k/uL RBC (3.80-5.40) m/uL Hgb (11.4-16.0) gm/dL Hct (34.0-46.0) % RDW (11.5-15.5) % Neutrophils # (1.3-7.7) k/uL Monocytes # (0-1.0) k/uL APTT (22.0-30.0) sec ABG pH (7.35-7.45) ABG pO2 (83-108) mmHg ABG O2 Saturation (94-97) % Chloride (98-107) mmol/L BUN (7-17) mg/dL Creatinine (0.52-1.04) mg/dL Glucose (74-99) mg/dL POC Glucose (mg/dL) 172 H 136 H 161 H (70-110) mg/dL AST (14-36) U/L ALT (4-34) U/L Total Protein (6.3-8.2) g/dL Albumin (3.5-5.0) g/dL Procalcitonin (0.02-0.09) ng/mL 04/01/23 04/01/23 04/01/23 Range/Units 04:05 04:05 04:05 WBC 16.9 H (3.8-10.6) k/uL RBC 2.79 L (3.80-5.40) m/uL Hgb 7.9 L (11.4-16.0) gm/dL Hct 24.8 L (34.0-46.0) % RDW 16.3 H (11.5-15.5) % Neutrophils # 12.8 H (1.3-7.7) k/uL Monocytes # 1.2 H (0-1.0) k/uL APTT 45.7 H (22.0-30.0) sec ABG pH (7.35-7.45) ABG pO2 (83-108) mmHg ABG O2 Saturation (94-97) % Chloride 109 H (98-107) mmol/L BUN 46 H (7-17) mg/dL Creatinine 1.20 H (0.52-1.04) mg/dL Glucose 160 H (74-99) mg/dL POC Glucose (mg/dL) (70-110) mg/dL AST 313 H (14-36) U/L ALT 90 H (4-34) U/L Total Protein 4.5 L (6.3-8.2) g/dL Albumin 2.5 L (3.5-5.0) g/dL Procalcitonin (0.02-0.09) ng/mL 04/01/23 04/01/23 04/01/23 Range/Units 05:11 06:04 06:20 WBC (3.8-10.6) k/uL RBC (3.80-5.40) m/uL Hgb (11.4-16.0) gm/dL Hct (34.0-46.0) % RDW (11.5-15.5) % Neutrophils # (1.3-7.7) k/uL Monocytes # (0-1.0) k/uL APTT (22.0-30.0) sec ABG pH 7.34 L (7.35-7.45) ABG pO2 65 L (83-108) mmHg ABG O2 Saturation 92.5 L (94-97) % Chloride (98-107) mmol/L BUN (7-17) mg/dL Creatinine (0.52-1.04) mg/dL Glucose (74-99) mg/dL POC Glucose (mg/dL) 221 H 225 H (70-110) mg/dL AST (14-36) U/L ALT (4-34) U/L Total Protein (6.3-8.2) g/dL Albumin (3.5-5.0) g/dL Procalcitonin (0.02-0.09) ng/mL 04/01/23 04/01/23 04/01/23 Range/Units 07:09 07:57 08:53 WBC (3.8-10.6) k/uL RBC (3.80-5.40) m/uL Hgb (11.4-16.0) gm/dL Hct (34.0-46.0) % RDW (11.5-15.5) % Neutrophils # (1.3-7.7) k/uL Monocytes # (0-1.0) k/uL APTT (22.0-30.0) sec ABG pH (7.35-7.45) ABG pO2 (83-108) mmHg ABG O2 Saturation (94-97) % Chloride (98-107) mmol/L BUN (7-17) mg/dL Creatinine (0.52-1.04) mg/dL Glucose (74-99) mg/dL POC Glucose (mg/dL) 225 H 196 H 174 H (70-110) mg/dL AST (14-36) U/L ALT (4-34) U/L Total Protein (6.3-8.2) g/dL Albumin (3.5-5.0) g/dL Procalcitonin (0.02-0.09) ng/mL 04/01/23 04/01/23 Range/Units 10:17 11:14 WBC (3.8-10.6) k/uL RBC (3.80-5.40) m/uL Hgb (11.4-16.0) gm/dL Hct (34.0-46.0) % RDW (11.5-15.5) % Neutrophils # (1.3-7.7) k/uL Monocytes # (0-1.0) k/uL APTT (22.0-30.0) sec ABG pH (7.35-7.45) ABG pO2 (83-108) mmHg ABG O2 Saturation (94-97) % Chloride (98-107) mmol/L BUN (7-17) mg/dL Creatinine (0.52-1.04) mg/dL Glucose (74-99) mg/dL POC Glucose (mg/dL) 162 H 153 H (70-110) mg/dL AST (14-36) U/L ALT (4-34) U/L Total Protein (6.3-8.2) g/dL Albumin (3.5-5.0) g/dL Procalcitonin (0.02-0.09) ng/mL Microbiology - Last 24 Hours (Table) 03/29/23 06:13 Blood Culture - Preliminary Blood Assessment and Plan Plan: Assessment: 1. Acute kidney injury secondary to hemodynamic ATN/shock. Creatinine 1.29 on admission and peaked at 2.43 this admission - 1.2 today. Nonoliguric. No hydronephrosis noted on kidney ultrasound. Left kidney not visualized. 2. Chronic kidney disease stage IIIa with baseline creatinine 1-1.2 secondary t o nephrosclerosis/diabetic kidney disease. 3. History of hypercalcemia maintained on Sensipar. Corrected calcium near 9.6. 4. Acute blood loss anemia status post blood transfusions this admission. Hemoglobin 7.9 today. 5. Hyperkalemia secondary to acute kidney injury, hyperglycemia, acidosis and acute blood loss. Improved with medical management. 6. Status post knee revision 03/28/2023. 7. Diabetes mellitus. 8. Questionable PE with severe pulmonary hypertension and moderate to severe tr icuspid regurgitation. On heparin drip. 9. Lower extremity edema. Plan: Tube feeds to be resumed. Lasix 40 mg IV once today. Hep-Lock IV fluids. Wean vasopressors as able. Blood sugar control. Currently on insulin drip. Continue to monitor renal function and urine output. Avoid nephrotoxins. Continue to hold Sensipar for now.
[2023-04-01 12:29] LABS: Glucose,Whole Blood 134 mg/dL (70-110)
--- NOTE | 2023-04-01 12:35 | OP ---
OPERATIVE REPORT DATE OF SERVICE : PROCEDURES PERFORMED: Bronchoscopy and bronchoalveolar lavage of the left lower lobe. PREOPERATIVE DIAGNOSIS: Left lower lobe atelectasis. POSTOPERATIVE DIAGNOSIS: Left lower lobe atelectasis, atelectasis secondary to endobronchial mucous plugging. ANESTHESIA USED: The patient was already on propofol drip and received 10 mg of Nimbex just prior to the procedure. DESCRIPTION OF PROCEDURE: The patient was placed in the supine position, she was already on mechanical ventilation, and an adapter was applied to the endotracheal tube and connected to mechanical ventilation. The patient was adequately anesthetized, and she was given 10 mg of Nimbex, we were closely monitoring her O2 saturation continuously, blood pressure was also continuously monitored via arterial line, and cardiac rhythm was continuously monitored. The bronchoscope was advanced through the adapter of the endotracheal tube, and reached the distal end, the radha was noted to be sharp, however, as I went down the left side, there was evidence of tenacious secretions noted in the left lower lobe bronchus. These were suctioned easily, and while in the process of suctioning of secretions, the patient desaturated down to the 70s and high 60s, then the fluid that was obtained from the left lower lobe was sent for different diagnostic studies. The procedure was well tolerated, no complications. The patient was placed back fully on mechanical ventilation with 100% FiO2 and 10 of PEEP, and her saturation came up immediately back to the 90s. Again, procedure was well tolerated. No complications. The desaturation during the procedure is very much expected. MMODL / IJN: [id number] /
--- NOTE | 2023-04-01 13:11 | P.PN ---
Subjective Progress Note Date: 04/01/23 Principal diagnosis: Acute hypoxic respiratory failure post repair of right comminuted fracture of distal femur adjacent to the knee prosthesis, postoperative day #4 I'm seeing this patient in new consultation today 03/29/2023 following a repair of a comminuted periprosthetic distal femur fracture. Patient is a 72-year-old white female with significant past medical history of previous right total knee replacement on 07/23/2022, diabetes mellitus, hypertension, obstructive sleep apnea, bilateral mastectomy for suspected breast cancer, and is an ex-smoker. Patient presented to the emergency room on 03/26/2023 after she tripped over a cord at the [place], and landed on her right knee. A CT of the right femur without contrast showed a comminuted fracture of the distal metadiaphyseal femur adjacent to the knee prosthesis, and there was displacement of the distal fra cture fragment from the proximal fracture. She was admitted to the hospital, and taken to the operating room yesterday evening. Patient reportedly had stabilization of the distal femur fracture with revision of the right knee prosthesis. Intraoperatively, the patient became hypotensive requiring multiple fluid boluses with a total of 2.8 L of lactated Ringer's, 1 L albumin, and was subsequently started on a Woody-Synephrine infusion. Patient's hemoglobin level was reportedly 6.8 intraoperatively, and the patient received a total of 2 units PRBC. Patient was then transferred to the intensive care unit in critical condition. Patient is currently lying in bed, intubated to the mechanical ventilator. Initial ventilator settings were assist control, respiratory rate 14, tidal volume 350, FiO2 100%, PEEP of 5. ABGs done on these settings showed a pO2 of 108, pCO2 of 75, pH of 7.07. The patient's respiratory rate was increased to 20 and tidal volume to 400. Peak pressures are currently 31 and vital pressures are 18. Propofol infusing for sedation at 30 mcg/kg/m. Patient is synchronous mechanical ventilator. Postoperative chest x-ray shows endotracheal tube above the radha, cardiomegaly, and small left pleural effusion. So far, the patient is still hypotensive, and will be given an additional liter of normal saline. Patient was transitioned to Levophed, and is currently infusing at 0.28 mics per kilogram per minute. A left radial arterial line was inserted. There is a i ndwelling urinary catheter in place, with only about 10 ML's of urine since surgery. Patient does have a Hemovac from the right postsurgical knee draining small amount of sanguinous output. Patient does have a right knee immobilizer in place. There is postsurgical wound VAC in place. Dilaudid is on for analgesia. Postoperative CBC after 2 units PRBC transfusion shows a WBC count of 25, hemoglobin 9.1, hematocrit 28.7, platelets 405. BMP postoperatively shows a sodium 136, potassium 6.9, chloride 100, serum CO2 22, BUN 34, creatinine 1.74, glucose 232. LFTs are elevated with an AST of 1044 and ALT of 154. Patient's hyperkalemia will be treated with 10 units regular insulin, 1 amp D50 W, 1 g calcium gluconate, and albuterol. Lactic acid level is 4.2, and is receiving an additional liter of normal saline. Patient will be monitored in the intensive care unit. Reevaluated today on 03/30/2023, patient remains in the ICU, intubated and mechanically ventilated. Patient is now on assist control rate of 50 to tidal volume 420 FiO2 60% PEEP of 8. ABG showed a pO2 of 72 pCO2 55 pH of 7.31, hence I was able to increase the rate to 34 FiO2 cut down to 55% and The PEEP to 8. remains on propofol at 50 mcg/kg/m, norepinephrine 0.12 mcg/kg/m Nimbex at 0.5 mcg/kg/m insulin at 14 units an hour and she is on bicarb drip which I discontinued. I have also recommended stopping Nimbex and transitioning the patient to fentanyl instead. Again I'm planning to discontinue Nimbex today and discontinue bicarb. Renal functioning is a bit worse today compared to yesterday, creatinine is 2.43 and it was 2.37. Baseline is 1.29. Hence this prohibits us from performing a CT angiogram of the chest, and I'm recommending that we continue heparin. WBC count today is 14 hemoglobin is 8.8. Her PTT is therapeutic at 66.5. Liver enzymes are elevated with elevated AST of 3981 and elevated ALT of 375 which indicates that the patient may have a shocked liver. Chest x-ray showed small pleural effusion and small areas of left lower lobe atelectasis without pneumonia. Lower extremities Doppler is negative for DVT. Patient was evaluated today on 03/31/2023, remains in the ICU, intubated and mechanically ventilated. Patient is on assist control rate of 34 tidal volume 420 FiO2 45% PEEP of 8 ABG showed a pO2 of 95 pCO2 49 pH of 7.35 hence I made changes on the ventilator with going to rate 32, tidal volume increased to 450 FiO2 increased to 50% and repeat down to 5. Patient is still on multiple drips including insulin at 8.17 units an hour propofol at 14 mcg/kg/m norepinephrine at 0.11 mcg/kg/m fentanyl at 1 mcg/kg/h and she is receiving vital HPI 29 mL per hour. IV fluid is 0.9 at 50 mL per hour today I changed fentanyl to 0.5 mcg/kg/h and asked nursing staff to adjust the propofol up and down accordingly. We definitely like to assess mental status today off sedation if possible but will try to titrate propofol and set of titrating both, fentanyl and propofol at the same time. Chest x-ray continues to show left lower lobe atelectasis and small left pleural effusion. WBC count is 15 hemoglobin is 8.3, basic metabolic profile is normal, renal profile is improving with BUN down to 51 and creatinine of 1.59. We will continue IV fluid at 50 mL per hour patient is making good amount of urine on her own no need for diuretics at this point and no need to cut down significantly on the fluids at this point since the patient is not developing congestive heart failure and the findings on the chest x-ray are mostly findings of atelectasis and possibly small left-sided pleural effusion. Blood sugars are controlled with the insulin drip. Liver enzymes are improving AST is down to 963 from 184 to yesterday. And her ALT is down to 149 from 208 yesterday. Cultures of urine and blood and sputum are still negative so far patient remains on heparin and I have no plans to start the patient for a CT angiogram of the chest as long as renal profile seems to be abnormal. Patient was reevaluated today on 04/01/2023, remains in the ICU, intubated and mechanically ventilated. She is now on assist control rate of 32 tidal volume of 450 FiO2 45% and PEEP of 5 ABG showed a pO2 of 65 pCO2 43 pH of 7.34 hence FiO2 was increased to 50%. Chest x-ray showed atelectasis of the left lower lobe as the patient underwent bronchoscopy today, and suction some tenacious secretions in the left lower lobe bronchus. No evidence of any other significant findings. Fluid obtained was sent for diagnostic studies. Patient remains on propofol at 20 mcg/kg/m she is also on heparin drip for presumptive pulmonary embolism she is receiving insulin at 5.3 units per hour norepinephrine at low-dose, however this was discontinued once the patient woke up and evaluated off propofol. Patient remains on Rocephin empirically, cultures have been negative so far. Awaiting cultures from the BAL of the left lower lobe today. Obviously the patient is not quite ready for weaning off propofol she was noted to be tachypneic, tachycardic, and her blood pressure was as high as 200 systolic. Hence no further weaning to be done today. And her ventilator settings will be adjusted accordingly after bronchoscopy and BAL. Labs today were reviewed she has a bit of leukocytosis with WBC count of 16.9 her PTT is therapeutic at 45.7 and electrolytes are normal BUN is down to 46 creatinine is down to 1.20 will continue to monitor heparin for now and monitor her renal status, may eventually recommend CT angiogram of the chest to confirm whether the patient had thromboembolic disease/pulmonary embolism. Pro calcitonin level was 1.91, nonetheless patient remains on Rocephin. So far urine cultures and blood cultures and sputum cultures have been negative Objective - Vital Signs Vital signs: Vital Signs Temp 98.8 F 04/01/23 12:00 Pulse 85 04/01/23 12:26 Resp 34 H 04/01/23 12:00 BP 135/58 04/01/23 12:00 Pulse Ox 99 04/01/23 12:00 FiO2 75 04/01/23 12:18 Intake & Output 03/31/23 04/01/23 04/01/23 18:59 06:59 18:59 Intake Total 1698.341 1434.752 564.031 Output Total 1435 1010 680 Balance -254.727 719.752 -115.969 Weight 131.2 kg Intake: IV 170 600 290 Invasive Line 6 30 Invasive Line 9 90 Sodium Chloride 0.9% 1, 300 240 000 ml @ 20 mls/hr IV . Q24H [facility] Rx#:[id number] Sodium Chloride 0.9% 1, 250 000 ml @ 50 mls/hr IV . Q20H [facility] Rx#:[id number] cefTRIAXone 1 gm In 50 50 50 Sodium Chloride 0.9% 50 ml @ 100 mls/hr IVPB Q12HR [facility] Rx#:[id number] Intake, IV Titration 631.273 778.752 185.031 Amount Heparin Sod,Pork in 0.45% 218.692 250 60.265 NaCl 25,000 unit In 0.45 % NaCl 1 250ml.bag @ 8.65 UNITS/KG/HR 10.005 mls/ hr IV .Q24H [facility] Rx#: [id number] Insulin Regular 100 unit 81.992 54.792 14.922 In Sodium Chloride 0.9% 100 ml @ Titrate IV .Q0M [facility] Rx#:[id number] Norepinephrine 32 mg In 38.552 66.292 23.324 Sodium Chloride 0.9% 218 ml @ 0.03 MCG/KG/MIN 1. 627 mls/hr IV .Q24H [facility] Rx#:[id number] Sodium Chloride 0.9% 80 67.811 ml @ 0.5 MCG/KG/HR 5.783 mls/hr IV .[id number] NENITA with fentaNYL (PF) 1,000 mcg Rx#:[id number] propofoL 1,000 mg In 224.226 407.668 86.520 Empty Bag 1 bag @ 15 MCG/ KG/MIN 10.41 mls/hr IV . Q9H37M [facility] Rx#:[id number] Tube Feeding 319 261 29 Other 60 90 60 Output: Gastric Drainage 55 Drainage 40 Right Knee 40 Urine 1395 1010 625 Other: Voiding Method Indwelling Catheter Indwelling Catheter Indwelling Catheter # Bowel Movements 0 ABP, PAP, CO, CI - Last Documented Arterial Blood Pressure 129/54 - Exam Physical Exam: Revealed a 72-year-old female , intubated, noted to be anxious and restless off propofol, unable to follow instructions. Head: Atraumatic, normocephalic. HEENT:[Neck is supple.] [No neck masses.] [No thyromegaly.] [No JVD.] Left subclavian central line is noted. Chest: [Fine crackles at the bases. Symmetrical chest expansion, no rhonchi no wheezes Cardiac Exam: [Normal S1 and S2, no S3 gallop, no murmur.] Abdomen: [Obese, Soft, nontender, no megaly, no rebound, no guarding, normal bowel sounds.] Extremities: [No clubbing, left knee is immobilized. Trace of bipedal edema. Neurological Exam: Off propofol patient was noted to be extremely anxious, agitated, could not follow instructions. Psychiatric: Could not be assessed except noted to be anxious and agitated tachycardic and tachypneic this was noted off propofol for a brief period of time - Labs CBC & Chem 7: 04/01/23 04:05 04/01/23 04:05 Labs: Abnormal Lab Results - Last 24 Hours (Table) 03/31/23 03/31/23 03/31/23 Range/Units 04:10 13:26 14:46 WBC (3.8-10.6) k/uL RBC (3.80-5.40) m/uL Hgb (11.4-16.0) gm/dL Hct (34.0-46.0) % RDW (11.5-15.5) % Neutrophils # (1.3-7.7) k/uL Monocytes # (0-1.0) k/uL APTT (22.0-30.0) sec ABG pH (7.35-7.45) ABG pO2 (83-108) mmHg ABG O2 Saturation (94-97) % Chloride (98-107) mmol/L BUN (7-17) mg/dL Creatinine (0.52-1.04) mg/dL Glucose (74-99) mg/dL POC Glucose (mg/dL) 175 H 178 H (70-110) mg/dL AST (14-36) U/L ALT (4-34) U/L Total Protein (6.3-8.2) g/dL Albumin (3.5-5.0) g/dL Procalcitonin 1.91 H (0.02-0.09) ng/mL 03/31/23 03/31/23 03/31/23 Range/Units 16:02 17:16 18:12 WBC (3.8-10.6) k/uL RBC (3.80-5.40) m/uL Hgb (11.4-16.0) gm/dL Hct (34.0-46.0) % RDW (11.5-15.5) % Neutrophils # (1.3-7.7) k/uL Monocytes # (0-1.0) k/uL APTT (22.0-30.0) sec ABG pH (7.35-7.45) ABG pO2 (83-108) mmHg ABG O2 Saturation (94-97) % Chloride (98-107) mmol/L BUN (7-17) mg/dL Creatinine (0.52-1.04) mg/dL Glucose (74-99) mg/dL POC Glucose (mg/dL) 153 H 124 H 159 H (70-110) mg/dL AST (14-36) U/L ALT (4-34) U/L Total Protein (6.3-8.2) g/dL Albumin (3.5-5.0) g/dL Procalcitonin (0.02-0.09) ng/mL 03/31/23 03/31/23 03/31/23 Range/Units 19:01 19:56 21:11 WBC (3.8-10.6) k/uL RBC (3.80-5.40) m/uL Hgb (11.4-16.0) gm/dL Hct (34.0-46.0) % RDW (11.5-15.5) % Neutrophils # (1.3-7.7) k/uL Monocytes # (0-1.0) k/uL APTT (22.0-30.0) sec ABG pH (7.35-7.45) ABG pO2 (83-108) mmHg ABG O2 Saturation (94-97) % Chloride (98-107) mmol/L BUN (7-17) mg/dL Creatinine (0.52-1.04) mg/dL Glucose (74-99) mg/dL POC Glucose (mg/dL) 187 H 190 H 154 H (70-110) mg/dL AST (14-36) U/L ALT (4-34) U/L Total Protein (6.3-8.2) g/dL Albumin (3.5-5.0) g/dL Procalcitonin (0.02-0.09) ng/mL 05/18/23 05/18/23 05/19/23 Range/Units 21:57 23:22 00:03 WBC (3.8-10.6) k/uL RBC (3.80-5.40) m/uL Hgb (11.4-16.0) gm/dL Hct (34.0-46.0) % RDW (11.5-15.5) % Neutrophils # (1.3-7.7) k/uL Monocytes # (0-1.0) k/uL APTT (22.0-30.0) sec ABG pH (7.35-7.45) ABG pO2 (83-108) mmHg ABG O2 Saturation (94-97) % Chloride (98-107) mmol/L BUN (7-17) mg/dL Creatinine (0.52-1.04) mg/dL Glucose (74-99) mg/dL POC Glucose (mg/dL) 128 H 174 H 197 H (70-110) mg/dL AST (14-36) U/L ALT (4-34) U/L Total Protein (6.3-8.2) g/dL Albumin (3.5-5.0) g/dL Procalcitonin (0.02-0.09) ng/mL 04/01/23 04/01/23 04/01/23 Range/Units 01:03 01:55 03:17 WBC (3.8-10.6) k/uL RBC (3.80-5.40) m/uL Hgb (11.4-16.0) gm/dL Hct (34.0-46.0) % RDW (11.5-15.5) % Neutrophils # (1.3-7.7) k/uL Monocytes # (0-1.0) k/uL APTT (22.0-30.0) sec ABG pH (7.35-7.45) ABG pO2 (83-108) mmHg ABG O2 Saturation (94-97) % Chloride (98-107) mmol/L BUN (7-17) mg/dL Creatinine (0.52-1.04) mg/dL Glucose (74-99) mg/dL POC Glucose (mg/dL) 193 H 172 H 136 H (70-110) mg/dL AST (14-36) U/L ALT (4-34) U/L Total Protein (6.3-8.2) g/dL Albumin (3.5-5.0) g/dL Procalcitonin (0.02-0.09) ng/mL 04/01/23 04/01/23 04/01/23 Range/Units 04:05 04:05 04:05 WBC 16.9 H (3.8-10.6) k/uL RBC 2.79 L (3.80-5.40) m/uL Hgb 7.9 L (11.4-16.0) gm/dL Hct 24.8 L (34.0-46.0) % RDW 16.3 H (11.5-15.5) % Neutrophils # 12.8 H (1.3-7.7) k/uL Monocytes # 1.2 H (0-1.0) k/uL APTT 45.7 H (22.0-30.0) sec ABG pH (7.35-7.45) ABG pO2 (83-108) mmHg ABG O2 Saturation (94-97) % Chloride (98-107) mmol/L BUN (7-17) mg/dL Creatinine (0.52-1.04) mg/dL Glucose (74-99) mg/dL POC Glucose (mg/dL) 161 H (70-110) mg/dL AST (14-36) U/L ALT (4-34) U/L Total Protein (6.3-8.2) g/dL Albumin (3.5-5.0) g/dL Procalcitonin (0.02-0.09) ng/mL 04/01/23 04/01/23 04/01/23 Range/Units 04:05 05:11 06:04 WBC (3.8-10.6) k/uL RBC (3.80-5.40) m/uL Hgb (11.4-16.0) gm/dL Hct (34.0-46.0) % RDW (11.5-15.5) % Neutrophils # (1.3-7.7) k/uL Monocytes # (0-1.0) k/uL APTT (22.0-30.0) sec ABG pH (7.35-7.45) ABG pO2 (83-108) mmHg ABG O2 Saturation (94-97) % Chloride 109 H (98-107) mmol/L BUN 46 H (7-17) mg/dL Creatinine 1.20 H (0.52-1.04) mg/dL Glucose 160 H (74-99) mg/dL POC Glucose (mg/dL) 221 H 225 H (70-110) mg/dL AST 313 H (14-36) U/L ALT 90 H (4-34) U/L Total Protein 4.5 L (6.3-8.2) g/dL Albumin 2.5 L (3.5-5.0) g/dL Procalcitonin (0.02-0.09) ng/mL 04/01/23 04/01/23 04/01/23 Range/Units 06:20 07:09 07:57 WBC (3.8-10.6) k/uL RBC (3.80-5.40) m/uL Hgb (11.4-16.0) gm/dL Hct (34.0-46.0) % RDW (11.5-15.5) % Neutrophils # (1.3-7.7) k/uL Monocytes # (0-1.0) k/uL APTT (22.0-30.0) sec ABG pH 7.34 L (7.35-7.45) ABG pO2 65 L (83-108) mmHg ABG O2 Saturation 92.5 L (94-97) % Chloride (98-107) mmol/L BUN (7-17) mg/dL Creatinine (0.52-1.04) mg/dL Glucose (74-99) mg/dL POC Glucose (mg/dL) 225 H 196 H (70-110) mg/dL AST (14-36) U/L ALT (4-34) U/L Total Protein (6.3-8.2) g/dL Albumin (3.5-5.0) g/dL Procalcitonin (0.02-0.09) ng/mL 04/01/23 04/01/23 04/01/23 Range/Units 08:53 10:17 11:14 WBC (3.8-10.6) k/uL RBC (3.80-5.40) m/uL Hgb (11.4-16.0) gm/dL Hct (34.0-46.0) % RDW (11.5-15.5) % Neutrophils # (1.3-7.7) k/uL Monocytes # (0-1.0) k/uL APTT (22.0-30.0) sec ABG pH (7.35-7.45) ABG pO2 (83-108) mmHg ABG O2 Saturation (94-97) % Chloride (98-107) mmol/L BUN (7-17) mg/dL Creatinine (0.52-1.04) mg/dL Glucose (74-99) mg/dL POC Glucose (mg/dL) 174 H 162 H 153 H (70-110) mg/dL AST (14-36) U/L ALT (4-34) U/L Total Protein (6.3-8.2) g/dL Albumin (3.5-5.0) g/dL Procalcitonin (0.02-0.09) ng/mL 04/01/23 Range/Units 12:28 WBC (3.8-10.6) k/uL RBC (3.80-5.40) m/uL Hgb (11.4-16.0) gm/dL Hct (34.0-46.0) % RDW (11.5-15.5) % Neutrophils # (1.3-7.7) k/uL Monocytes # (0-1.0) k/uL APTT (22.0-30.0) sec ABG pH (7.35-7.45) ABG pO2 (83-108) mmHg ABG O2 Saturation (94-97) % Chloride (98-107) mmol/L BUN (7-17) mg/dL Creatinine (0.52-1.04) mg/dL Glucose (74-99) mg/dL POC Glucose (mg/dL) 134 H (70-110) mg/dL AST (14-36) U/L ALT (4-34) U/L Total Protein (6.3-8.2) g/dL Albumin (3.5-5.0) g/dL Procalcitonin (0.02-0.09) ng/mL Microbiology - Last 24 Hours (Table) 03/29/23 06:13 Blood Culture - Preliminary Blood Assessment and Plan Assessment: Impression: Acute hypoxic, and hypercapnic respiratory failure, exact etiology is not clear, but strongly suspect either pulmonary embolism or fat embolism as a complication from a right comminuted fracture status post repair postoperative day #4 Hypotension, likely hypovolemic in nature or could be related to pulmonary embolism. Acute blood loss anemia patient received a 3 units of packed RBCs so far, hemoglobin is presently 8.8, no active bleeding noted. Acute kidney injury, continues to improve steadily over the last few days today's creatinine is 1.2 Acute lactic acidemia secondary to hypotension and hypoperfusion strongly doubt sepsis. Shock liver secondary to hypotension, improving. Over the last 24 hours History of previous right total knee replacement Morbid obesity History of obstructive sleep apnea syndrome History of bilateral meniscectomies Ex-smoker Left lower lobe atelectasis, possible pneumonia status post bronchoscopy postoperative day #0 Recommendation: Continue ventilatory support Continue hemodynamic support, if necessary patient is on 0.1 mcg/kg/m of norepinephrine Continue heparin for now although the venous Doppler is negative, may still consider CT angiogram of the chest once her renal functioning is improved further Discontinue fentanyl, maintain patient on propofol for now. Continue enteral feeding/nutritional support Continue GI and DVT prophylaxis Continue Rocephin for now pro calcitonin level is elevated blood cultures are negative awaiting cultures from left lower lobe BAL Continue insulin infusion for now and maintain blood sugars noted to 150 up to 200 No further weaning will be done today. Patient is extremely agitated and her overall pulmonary status remains marginal Continue IV fluid at 50 mL per hour and avoid diuretics Patient remains critically ill. We will continue to follow. Critical care time is over 30, not including the time spent on procedures Overall prognosis remains guarded. Time with Patient: Greater than 30
[2023-04-01 13:12] LABS: Glucose,Whole Blood 148 mg/dL (70-110)
[2023-04-01 14:10] LABS: Glucose,Whole Blood 185 mg/dL (70-110)
[2023-04-01 15:13] LABS: Glucose,Whole Blood 198 mg/dL (70-110)
--- NOTE | 2023-04-01 15:34 | P.PN ---
Progress Note - Text Progress Note Date: 04/01/23 - Chief Complaint Right leg injury History of presenting complaint: very pleasant 72-year-old patient of Dr. Persaud. Chronic stable medical conditions include diabetes, hyperlipidemia, hypertension, primary osteoarthritis, peripheral neuropathy, bilateral breast cancer with bilateral mastectomy, IBS, diverticulosis, chronic low back arthritis. Anxiety depression. Diagnosis of ulcerative colitis for about 15 years. On Asacol 800 mg 3 times a day. In November 2020 did undergo coloscopy by Dr. Moreno. Normal- appearing colon. Patient does follow with Dr. Angi Stallings. On an average has about 10 bowel movements a day. Present for years. Patient today was at the [facility]. Troponin went and fell down. Computed tomography scan showing a comminuted fracture distal metaphyseal femur adjacent to the knee processes. Some external rotation. Right lower extremity - brace. Patient's able to get about the house.. No chest pain or palpitation. March 27: Reclining bed. Pain control. Oral intake fair. Pending surgery tomorrow. Discussed with patient has would've the bedside. March 15: Patient seen by me this morning prior to surgery. In bed. Comfortable. Nothing by mouth. Pending surgery this afternoon. March 29: ICU. Yesterday patient underwent right revision total knee replacement the distal femoral replacement age for periprosthetic distal femur fracture. Estimated blood loss was about 600 mL. In the perioperative area patient blood pressure was running low. Patient was transferred to the ICU. Patient did receive 2 units of blood yesterday. Today patient is intubated. FiO2 85% and a PEEP of 10. Drips include we will affect, propofol, Nimbex. Patient started IV heparin for underlying suspicion of pulmonary embolism. Accu-Cheks running high has put on insulin drip. Oral gastric tube. Patient's and 2 daughters at the bedside. Discussed at length. Patient renal function also worsened. Hyperkalemia. Given bicarbonate. Being followed by personal development educator, nephrology. Another unit of blood pending. Hemoglobin this morning 6.7. Patient has increased right-sided heart pressures suspicious for therefore PE/fat embolism. March 30: ICU. Spiked a fever. Advair 250/50 5 and a PEEP of 8. On the ventilator. Sinus rhythm. Drips include Nimbex, propofol, IV heparin, IV insulin, IV norepinephrine. Right leg in a brace. IV ceftriaxone. March 31: ICU. On the ventilator. FiO2 45 PEEP of 5. 2 feeding at 30 mL an hour. Telemetry: Sinus rhythm. Drips include insulin, propofol, epinephrine, IV heparin. IV insulin. Cultures have been negative up to now. Remains in empirically on IV ceftriaxone. April 01: ICU. Patient underwent bronchoscopy by Dr. Babcock. 4 atelectasis on the chest x-ray. No rashes thick secretions removed from the left lower lobe. Likely mucous plugging. Currently on the ventilator with FiO2 100 a PEEP of 8. Sinus rhythm on the telemetry. Drips include IV levo fed, propofol, IV heparin, insulin. Having white secretions. IV ceftriaxone. Discussed with the patient's out of the bedside. Patient still remains critical. Active Medications Hydrocodone Bitart/Acetaminophen (Hydrocodone/Apap 5-325mg 1 Each Tab) 1 each PO Q4HR PRN PRN Reason: Moderate Pain (Scale 4 to 6) Last Admin: 03/31/23 13:08 Dose: 1 each Albuterol/Ipratropium (Ipratropium-Albuterol 3 Ml Neb) 3 ml INHALATION RT-Q4H [facility] Last Admin: 04/01/23 15:16 Dose: 3 ml Aspirin (Aspirin 81 Mg) 81 mg PO BID [facility] Last Admin: 04/01/23 09:00 Dose: 81 mg Chlorhexidine Gluconate (Chlorhexidine Gluconate 15 Ml Cup) 15 ml MUCOUS MEM BID [facility] Last Admin: 04/01/23 09:00 Dose: 15 ml Dextrose/Water (Dextrose 50% Syringe 50 Ml) 25 ml IVP PER PROTOCOL PRN; Protocol PRN Reason: Hypoglycemia Dextrose/Water (Dextrose 50% Syringe 50 Ml) 50 ml IVP PER PROTOCOL PRN; Protocol PRN Reason: Hypoglycemia Doxycycline Monohydrate (Doxycycline 100 Mg Cap) 100 mg PO BID [facility]; Protocol Last Admin: 04/01/23 09:48 Dose: 100 mg Ferrous Sulfate (Ferrous Sulfate 325 Mg Tab) 325 mg PO DAILY [facility] Last Admin: 04/01/23 10:01 Dose: Not Given Fluoxetine HCl (Fluoxetine Hcl 20 Mg Cap) 40 mg PO DAILY [facility] Last Admin: 04/01/23 09:00 Dose: 40 mg Heparin Sodium (Porcine) (Heparin Sodium 1,000 Un/Ml (10ml Vl)) 0 unit IV PER PROTOCOL PRN; Protocol PRN Reason: Low PTT Last Admin: 03/30/23 02:08 Dose: 2,892 unit Hydromorphone HCl (Hydromorphone 0.5 Mg/0.5 Ml Syringe) 0.125 mg IVP Q3HR PRN PRN Reason: Pain Scale 1 to 3 Hydromorphone HCl (Hydromorphone 0.5 Mg/0.5 Ml Syringe) 0.5 mg IVP Q3HR PRN PRN Reason: Pain Scale 7 to 10 Last Admin: 03/31/23 19:10 Dose: 0.5 mg Hydromorphone HCl (Hydromorphone 0.5 Mg/0.5 Ml Syringe) 0.25 mg IVP Q3HR PRN PRN Reason: Pain Scale 4 to 6 Hydromorphone HCl (Hydromorphone 1 Mg/Ml 1 Ml Syringe) 1 mg IVP Q2HR PRN PRN Reason: Pain Last Admin: 04/01/23 04:54 Dose: 1 mg Propofol 1,000 mg/ IV Solution 100 mls @ 10.41 mls/hr IV .Q9H37M [facility]; Protocol Last Admin: 04/01/23 13:05 Dose: 50 mcg/kg/min, 34.7 mls/hr Insulin Human Regular 100 unit (/ Sodium Chloride) 100 mls @ 0 mls/hr IV .Q0M [facility]; Protocol Last Titration: 04/01/23 15:17 Dose: 3.5 units/hr, 3.5 mls/hr Heparin Sodium/Sodium Chloride (25,000 unit/ Sodium Chloride) 250 mls @ 10.005 mls/hr IV .Q24H [facility]; Protocol Last Titration: 04/01/23 10:10 Dose: 13.65 units/kg/hr, 15.79 mls/hr Norepinephrine Bitartrate 32 (mg/ Sodium Chloride) 250 mls @ 1.627 mls/hr IV .Q24H [facility]; Protocol Last Titration: 04/01/23 14:45 Dose: 0 mcg/kg/min, 0 mls/hr Ceftriaxone Sodium 1 gm/ (Sodium Chloride) 50 mls @ 100 mls/hr IVPB Q12HR [facility]; Protocol Last Admin: 04/01/23 09:01 Dose: 100 mls/hr Sodium Chloride (Saline 0.9%) 1,000 mls @ 20 mls/hr IV .Q24H [facility] Last Admin: 03/31/23 09:04 Dose: 50 mls/hr Lorazepam (Lorazepam 0.5 Mg Tab) 0.5 mg PO Q6HR PRN PRN Reason: Anxiety Last Admin: 04/01/23 05:03 Dose: 0.5 mg Miscellaneous Information (Potassium Replacement Protocol 1 Each Misc) 1 each MISCELLANE DAILY PRN; Protocol PRN Reason: Per Protocol Naloxone HCl (Naloxone 0.4 Mg/Ml 1 Ml Vial) 0.2 mg IV Q2M PRN PRN Reason: Opioid Reversal Olanzapine (Olanzapine 5 Mg Tab) 5 mg PO HS [facility] Last Admin: 03/31/23 20:03 Dose: 5 mg Ondansetron HCl (Ondansetron 4 Mg/2 Ml Vial) 4 mg IVP Q8HR PRN PRN Reason: Nausea And Vomiting Pantoprazole Sodium (Pantoprazole 40 Mg/10 Ml Vial) 40 mg IV DAILY [facility] Last Admin: 04/01/23 09:00 Dose: 40 mg Senna/Docusate Sodium (Sennosides-Docusate Sodium 1 Each Tab) 2 each PO HS [facility] Last Admin: 03/31/23 20:02 Dose: 2 each Past medical history to include: Diabetes mellitus type 2, hyperlipidemia, hypertension, osteoarthritis, peripheral neuropathy, bilateral breast cancer with bilateral mastectomies, ulcerative colitis-colonoscopy has shown normal colon and biopsy was negative., diverticulosis, chronic low back pain and arthritis, anxiety depression. COVID- 19 Social history: . Smoked for 41 years stopped in 2005. No alcohol Physical examination: VITAL SIGNS: I did 0.8, 1:15, 34, 135/58, 129/54, on the ventilator GENERAL: BMI 46.6, reclining intubated. OG tube EYES: Pupils equal. Conjunctiva normal. HEENT: External appearance of nose and ears normal, oral cavity OG tube NECK: JVD unable to assess; masses not palpable. HEART: First and second heart sounds are normal; no edema. LUNGS: Respiratory rate increased, decreased breath sounds ABDOMEN: Soft, nontender, liver spleen not palpable, no masses palpable. PSYCH: Sedated MUSCULAR skeletal: Evidence of OA especially in the hands . Right lower extremity in a brace INVESTIGATIONS, reviewed in the clinical context: April 01: White count 16.9 hemoglobin 7.9 platelets 336 potassium 4.9 BUN 46 creatinine 1.20 AST 313 ALT 90 albumin 2.5 March 31: White count 15 hemoglobin 8.3 platelets 302 potassium 4.3 BUN 51 and creatinine 1.59 AST 963 ALT 141 pro calcitonin 1.91 March 30: White count 15.4 hemoglobin 8.8 platelets 298 potassium 3.6 BUN 53 creatinine 1.99 AST 1842 ALT 208 2-D echocardiogram: Moderate increased LVH. EF 50-55%. Severe right ventricle dilatation generalized right ventricle hypokinesis. Severe pulmonary hypertension. Moderate to severe tricuspid regurgitation. Ultrasound venous Doppler lower extremity: Limited views. No obvious DVT. Ultrasound kidney: Right kidney: Mild renal cortical thinning. Left kidney obscured. March 29: White count 20.6 hemoglobin 6.7 platelets 300 ABG: PH 7.13 pCO2 62. P otassium 5.1 BUN 40 creatinine 1.91 blood glucose 372 UA: Noted March 28: White count 9.1 hemoglobin 9.5 potassium 4.4 BUN 36 creatinine 1.37 White count 12.2 hemoglobin 11.5 platelets 510 sodium 140 potassium 4 BUN 34 creatinine 1.9 EKG tracing personally reviewed by me-normal sinus rhythm. Chest x-ray film personally reviewed by me-: Portable. No obvious infiltrate Knee x-ray/femur CT: Comminuted fracture distal metadiaphyseal femur adjacent to a knee processes. Displacement of the distal fracture fragment from the proximal fracture Assessment and plan: -Fall leading to acute Comminuted fracture distal metadiaphyseal femur adjacent to a knee processes. Displacement of the distal fracture fragment from the proximal fracture. March 28:right revision total knee replacement the distal femoral replacement age for periprosthetic distal femur fracture. By Dr. Stakc. EBL 600 mL -Mucous plugging with left lower lobe atelectasis. Status post bronchoscopy and removal of sticks tenacious secretions. 04/01/2023 -Acute severe blood loss anemia from surgery Patient received 3 units of blood -Hyperkalemia from acute kidney injury: Better -IV heparin monitoring Follow PTT -Acute cor pulmonale with underlying suspicious for fat embolism/pulmonary embolism with acute right ventricle dilatation and moderate to severe TR. -Acute hypotensive shock from blood loss anemia.: Slow to respond Receive 3 units of blood. IV levo fed -Acute kidney injury likely cardiorenal syndrome/ATN. From hypotension and anemia.: Some improvement Follow with nephrology. Admission creatinine was 1.29. Peaked at 2.43. 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 / Amaryl. Insulin drip -Hyperlipidemia Lipitor, TriCor -Anxiety not otherwise specified Klonopin 0.5 mg 3 times a day -Depression Zyprexa 5 mg daily at bedtime, Prozac 40 mg a day -Hyperuricemia Allopurinol -Essential hypertension, currently hypotensive -Acute hepatitis likely ischemic, improvement -Primary osteoarthritis Pain medications when necessary -Chronic kidney disease stage III from diabetic nephropathy and hypertensive nephrosclerosis Follow renal function ICU. Critically ill. Current drips include levo fed, propofol,. IV heparin. IV insulin. OG tube. Intubated. Status post bronchoscopy with mucous plugging removed from the left side. Discussed with family the bedside. Critical. Thank you Dr. Stack
[2023-04-01 16:09] LABS: Glucose,Whole Blood 189 mg/dL (70-110)
[2023-04-01 17:02] LABS: Glucose,Whole Blood 178 mg/dL (70-110)
--- NOTE | 2023-04-01 17:19 | P.PN ---
Subjective Progress Note Date: 04/01/23 This patient is a 72- year old female who is status-post right revision distal femoral replacing hinge for comminuted periprosthetic distal femur fracture on 03/28/23. Today is post-operative day #1. Patient is examined bedside in the ICU with Dr. Stack. Patient remains intubated. Patient has received 2 units of PRBCs post- op, hemoglobin has resulted as 6.7 this morning, therefore an additional unit of PRBCs has been ordered. Arterial line has been placed. Nephrology has been consulted due to hyperkalemia and acute kidney injury. Doppler ultrasound of the bilateral lower extremities has been obtained this morning, which showed no acute DVT although was relatively non-diagnostic in some areas due to body habitus. Heparin drip has been initiated per Dr. Babcock. 04/01/23: Today is post-operative day #4. Patient is examined bedside this afternoon with Dr. Stack. She remains intubated and sedated in the ICU. Weaning was attempted today although this was unsuccessful. Remains on IV heparin for presumed pulmonary embolism. Objective - Vital Signs Vital signs: Vital Signs Temp 99.9 F H 04/01/23 16:00 Pulse 107 H 04/01/23 17:00 Resp 14 04/01/23 17:00 BP 126/59 04/01/23 17:00 Pulse Ox 96 04/01/23 17:00 FiO2 50 04/01/23 17:00 Intake & Output 03/31/23 04/01/23 04/01/23 18:59 06:59 18:59 Intake Total 2861.035 8089.752 921.290 Output Total 1435 1010 1455 Balance -254.727 719.752 -533.710 Weight 131.2 kg 131.2 kg Intake: IV 170 600 390 Invasive Line 6 30 Invasive Line 9 90 Sodium Chloride 0.9% 1, 300 340 000 ml @ 20 mls/hr IV . Q24H [facility] Rx#:[id number] Sodium Chloride 0.9% 1, 250 000 ml @ 50 mls/hr IV . Q20H [facility] Rx#:[id number] cefTRIAXone 1 gm In 50 50 50 Sodium Chloride 0.9% 50 ml @ 100 mls/hr IVPB Q12HR [facility] Rx#:[id number] Intake, IV Titration 631.273 778.752 412.290 Amount Heparin Sod,Pork in 0.45% 218.692 250 60.265 NaCl 25,000 unit In 0.45 % NaCl 1 250ml.bag @ 8.65 UNITS/KG/HR 10.005 mls/ hr IV .Q24H [facility] Rx#: [id number] Insulin Regular 100 unit 81.992 54.792 38.496 In Sodium Chloride 0.9% 100 ml @ Titrate IV .Q0M [facility] Rx#:[id number] Norepinephrine 32 mg In 38.552 66.292 27.009 Sodium Chloride 0.9% 218 ml @ 0.03 MCG/KG/MIN 1. 627 mls/hr IV .Q24H [facility] Rx#:[id number] Sodium Chloride 0.9% 80 67.811 ml @ 0.5 MCG/KG/HR 5.783 mls/hr IV .[id number] [facility] with fentaNYL (PF) 1,000 mcg Rx#:[id number] propofoL 1,000 mg In 224.226 407.668 286.520 Empty Bag 1 bag @ 15 MCG/ KG/MIN 10.41 mls/hr IV . Q9H37M [facility] Rx#:[id number] Tube Feeding 319 261 29 Other 60 90 90 Output: Gastric Drainage 55 Drainage 40 Right Knee 40 Urine 1395 1010 1400 Other: Voiding Method Indwelling Catheter Indwelling Catheter Indwelling Catheter # Bowel Movements 0 ABP, PAP, CO, CI - Last Documented Arterial Blood Pressure 140/58 - Exam On examination, patient is intubated. On inspection of the right knee, knee immobilizer in place Prevena wound vac in place that has a good seal at this time. There is moderate swelling of the knee. The right lower extremity is warm and well perfused. Dorsalis pedis pulse easily palpable. - Labs CBC & Chem 7: 04/01/23 04:05 04/01/23 04:05 Labs: Abnormal Lab Results - Last 24 Hours (Table) 03/31/23 03/31/23 03/31/23 Range/Units 17:16 18:12 19:01 WBC (3.8-10.6) k/uL RBC (3.80-5.40) m/uL Hgb (11.4-16.0) gm/dL Hct (34.0-46.0) % RDW (11.5-15.5) % Neutrophils # (1.3-7.7) k/uL Monocytes # (0-1.0) k/uL APTT (22.0-30.0) sec ABG pH (7.35-7.45) ABG pO2 (83-108) mmHg ABG O2 Saturation (94-97) % Chloride (98-107) mmol/L BUN (7-17) mg/dL Creatinine (0.52-1.04) mg/dL Glucose (74-99) mg/dL POC Glucose (mg/dL) 124 H 159 H 187 H (70-110) mg/dL AST (14-36) U/L ALT (4-34) U/L Total Protein (6.3-8.2) g/dL Albumin (3.5-5.0) g/dL 03/31/23 03/31/23 03/31/23 Range/Units 19:56 21:11 21:57 WBC (3.8-10.6) k/uL RBC (3.80-5.40) m/uL Hgb (11.4-16.0) gm/dL Hct (34.0-46.0) % RDW (11.5-15.5) % Neutrophils # (1.3-7.7) k/uL Monocytes # (0-1.0) k/uL APTT (22.0-30.0) sec ABG pH (7.35-7.45) ABG pO2 (83-108) mmHg ABG O2 Saturation (94-97) % Chloride (98-107) mmol/L BUN (7-17) mg/dL Creatinine (0.52-1.04) mg/dL Glucose (74-99) mg/dL POC Glucose (mg/dL) 190 H 154 H 128 H (70-110) mg/dL AST (14-36) U/L ALT (4-34) U/L Total Protein (6.3-8.2) g/dL Albumin (3.5-5.0) g/dL 03/31/23 04/01/23 04/01/23 Range/Units 23:22 00:03 01:03 WBC (3.8-10.6) k/uL RBC (3.80-5.40) m/uL Hgb (11.4-16.0) gm/dL Hct (34.0-46.0) % RDW (11.5-15.5) % Neutrophils # (1.3-7.7) k/uL Monocytes # (0-1.0) k/uL APTT (22.0-30.0) sec ABG pH (7.35-7.45) ABG pO2 (83-108) mmHg ABG O2 Saturation (94-97) % Chloride (98-107) mmol/L BUN (7-17) mg/dL Creatinine (0.52-1.04) mg/dL Glucose (74-99) mg/dL POC Glucose (mg/dL) 174 H 197 H 193 H (70-110) mg/dL AST (14-36) U/L ALT (4-34) U/L Total Protein (6.3-8.2) g/dL Albumin (3.5-5.0) g/dL 04/01/23 04/01/23 04/01/23 Range/Units 01:55 03:17 04:05 WBC (3.8-10.6) k/uL RBC (3.80-5.40) m/uL Hgb (11.4-16.0) gm/dL Hct (34.0-46.0) % RDW (11.5-15.5) % Neutrophils # (1.3-7.7) k/uL Monocytes # (0-1.0) k/uL APTT (22.0-30.0) sec ABG pH (7.35-7.45) ABG pO2 (83-108) mmHg ABG O2 Saturation (94-97) % Chloride (98-107) mmol/L BUN (7-17) mg/dL Creatinine (0.52-1.04) mg/dL Glucose (74-99) mg/dL POC Glucose (mg/dL) 172 H 136 H 161 H (70-110) mg/dL AST (14-36) U/L ALT (4-34) U/L Total Protein (6.3-8.2) g/dL Albumin (3.5-5.0) g/dL 04/01/23 04/01/23 04/01/23 Range/Units 04:05 04:05 04:05 WBC 16.9 H (3.8-10.6) k/uL RBC 2.79 L (3.80-5.40) m/uL Hgb 7.9 L (11.4-16.0) gm/dL Hct 24.8 L (34.0-46.0) % RDW 16.3 H (11.5-15.5) % Neutrophils # 12.8 H (1.3-7.7) k/uL Monocytes # 1.2 H (0-1.0) k/uL APTT 45.7 H (22.0-30.0) sec ABG pH (7.35-7.45) ABG pO2 (83-108) mmHg ABG O2 Saturation (94-97) % Chloride 109 H (98-107) mmol/L BUN 46 H (7-17) mg/dL Creatinine 1.20 H (0.52-1.04) mg/dL Glucose 160 H (74-99) mg/dL POC Glucose (mg/dL) (70-110) mg/dL AST 313 H (14-36) U/L ALT 90 H (4-34) U/L Total Protein 4.5 L (6.3-8.2) g/dL Albumin 2.5 L (3.5-5.0) g/dL 04/01/23 04/01/23 04/01/23 Range/Units 05:11 06:04 06:20 WBC (3.8-10.6) k/uL RBC (3.80-5.40) m/uL Hgb (11.4-16.0) gm/dL Hct (34.0-46.0) % RDW (11.5-15.5) % Neutrophils # (1.3-7.7) k/uL Monocytes # (0-1.0) k/uL APTT (22.0-30.0) sec ABG pH 7.34 L (7.35-7.45) ABG pO2 65 L (83-108) mmHg ABG O2 Saturation 92.5 L (94-97) % Chloride (98-107) mmol/L BUN (7-17) mg/dL Creatinine (0.52-1.04) mg/dL Glucose (74-99) mg/dL POC Glucose (mg/dL) 221 H 225 H (70-110) mg/dL AST (14-36) U/L ALT (4-34) U/L Total Protein (6.3-8.2) g/dL Albumin (3.5-5.0) g/dL 04/01/23 04/01/23 04/01/23 Range/Units 07:09 07:57 08:53 WBC (3.8-10.6) k/uL RBC (3.80-5.40) m/uL Hgb (11.4-16.0) gm/dL Hct (34.0-46.0) % RDW (11.5-15.5) % Neutrophils # (1.3-7.7) k/uL Monocytes # (0-1.0) k/uL APTT (22.0-30.0) sec ABG pH (7.35-7.45) ABG pO2 (83-108) mmHg ABG O2 Saturation (94-97) % Chloride (98-107) mmol/L BUN (7-17) mg/dL Creatinine (0.52-1.04) mg/dL Glucose (74-99) mg/dL POC Glucose (mg/dL) 225 H 196 H 174 H (70-110) mg/dL AST (14-36) U/L ALT (4-34) U/L Total Protein (6.3-8.2) g/dL Albumin (3.5-5.0) g/dL 04/01/23 04/01/23 04/01/23 Range/Units 10:17 11:14 12:28 WBC (3.8-10.6) k/uL RBC (3.80-5.40) m/uL Hgb (11.4-16.0) gm/dL Hct (34.0-46.0) % RDW (11.5-15.5) % Neutrophils # (1.3-7.7) k/uL Monocytes # (0-1.0) k/uL APTT (22.0-30.0) sec ABG pH (7.35-7.45) ABG pO2 (83-108) mmHg ABG O2 Saturation (94-97) % Chloride (98-107) mmol/L BUN (7-17) mg/dL Creatinine (0.52-1.04) mg/dL Glucose (74-99) mg/dL POC Glucose (mg/dL) 162 H 153 H 134 H (70-110) mg/dL AST (14-36) U/L ALT (4-34) U/L Total Protein (6.3-8.2) g/dL Albumin (3.5-5.0) g/dL 04/01/23 04/01/23 04/01/23 Range/Units 13:10 14:08 15:11 WBC (3.8-10.6) k/uL RBC (3.80-5.40) m/uL Hgb (11.4-16.0) gm/dL Hct (34.0-46.0) % RDW (11.5-15.5) % Neutrophils # (1.3-7.7) k/uL Monocytes # (0-1.0) k/uL APTT (22.0-30.0) sec ABG pH (7.35-7.45) ABG pO2 (83-108) mmHg ABG O2 Saturation (94-97) % Chloride (98-107) mmol/L BUN (7-17) mg/dL Creatinine (0.52-1.04) mg/dL Glucose (74-99) mg/dL POC Glucose (mg/dL) 148 H 185 H 198 H (70-110) mg/dL AST (14-36) U/L ALT (4-34) U/L Total Protein (6.3-8.2) g/dL Albumin (3.5-5.0) g/dL 04/01/23 04/01/23 Range/Units 16:06 17:00 WBC (3.8-10.6) k/uL RBC (3.80-5.40) m/uL Hgb (11.4-16.0) gm/dL Hct (34.0-46.0) % RDW (11.5-15.5) % Neutrophils # (1.3-7.7) k/uL Monocytes # (0-1.0) k/uL APTT (22.0-30.0) sec ABG pH (7.35-7.45) ABG pO2 (83-108) mmHg ABG O2 Saturation (94-97) % Chloride (98-107) mmol/L BUN (7-17) mg/dL Creatinine (0.52-1.04) mg/dL Glucose (74-99) mg/dL POC Glucose (mg/dL) 189 H 178 H (70-110) mg/dL AST (14-36) U/L ALT (4-34) U/L Total Protein (6.3-8.2) g/dL Albumin (3.5-5.0) g/dL Microbiology - Last 24 Hours (Table) 03/29/23 06:13 Blood Culture - Preliminary Blood Assessment and Plan Assessment: Status-post right revision distal femoral replacing hinge for comminuted periprosthetic distal femur fracture on 03/28/23. Post-op day #4. Plan: - Appreciate medical and ICU management per multiple medical specialities including pulmonology/critical care, nephrology, internal medicine. - Keep Prevena wound vac in place. Do not remove. She may weight bear to stephanie ance on right lower extremity once extubated. Hemovac drain was removed bedside today. - Patient remains on Heparin per ICU team. - We will follow patient very closely and make recommendations as needed.
[2023-04-01] MEDS: SODIUM CHLORIDE 0.9% 1,000 ML IV SCH (17:53)
[2023-04-01 18:02] LABS: Glucose,Whole Blood 161 mg/dL (70-110)
[2023-04-01 19:01] LABS: Glucose,Whole Blood 148 mg/dL (70-110)
[2023-04-01 19:51] LABS: Glucose,Whole Blood 143 mg/dL (70-110)
[2023-04-01] MEDS: SENNOSIDES-DOCUSATE SODIUM 1 EACH TAB PO SCH (20:46)
[2023-04-01] MEDS: OLANZapine 5 MG TAB PO SCH (21:07)
[2023-04-01 21:10] LABS: Glucose,Whole Blood 132 mg/dL (70-110)
[2023-04-01 22:22] LABS: Glucose,Whole Blood 161 mg/dL (70-110)
--- NOTE | 2023-04-01 22:30 | XR ---
EXAMINATION TYPE: XR chest 1V portable DATE OF EXAM: 04/01/2023 10:20 PM COMPARISON: Chest radiographs from 04/01/2022. TECHNIQUE: XR chest 1V portable Frontal view of the chest. CLINICAL INDICATION:Female, 72 years old with history of og tube placement; FINDINGS: Lungs/Pleura: There is no evidence of focal consolidation, or pneumothorax. Left pleural effusion. Pulmonary vascularity: Unremarkable. Heart/mediastinum: Cardiomediastinal silhouette is unremarkable. Musculoskeletal: No acute osseous pathology. Other findings: None Lines/Tubes: What is thought to represent endotracheal tube terminates 2.9 cm above the radha. Left central venous catheter with tip at brachiocephalic vein/superior vena cava confluence. Previous orogastric tubing has been removed. IMPRESSION: 1. Possible endotracheal tube 2.9 cm above the radha. No definitive nasogastric tube visualized. Pr evious orogastric tubing appears removed. 2. Left central venous catheter with tip in appropriate position. 3. Small left pleural effusion
[2023-04-01 23:12] LABS: Glucose,Whole Blood 179 mg/dL (70-110)
--- NOTE | 2023-04-01 23:54 | XR ---
EXAMINATION TYPE: XR chest 1V portable DATE OF EXAM: 04/01/2023 11:48 PM COMPARISON: Chest radiographs from 04/01/2023 earlier TECHNIQUE: XR chest 1V portable Frontal view of the chest. CLINICAL INDICATION:Female, 72 years old with history of OG placement; FINDINGS: Lungs/Pleura: There is no evidence of focal consolidation, or pneumothorax. Blunting of the left cos tophrenic angle. Increased lucency in the lung apices. Airspace opacities projecting over the heart. Pulmonary vascularity: Unremarkable. Heart/mediastinum: Cardiomediastinal silhouette is unremarkable. Musculoskeletal: No acute osseous pathology. Lines/Tubes: Endotracheal tube with distal tip 3.7 cm above the radha. Nasogastric tube with its distal tip and side-port projecting under the diaphragm. Left internal jugular central venous catheter with distal tip at the superior vena cava. IMPRESSION: 1. Support line and tubes in appropriate position. 2. Small left effusion and cardiomegaly. 3. COPD changes with possible peripheral cardiac airspace opacities correlate for pneumonia.
[2023-04-02 00:21] LABS: Glucose,Whole Blood 180 mg/dL (70-110)
[2023-04-02 01:06] LABS: Glucose,Whole Blood 193 mg/dL (70-110)
[2023-04-02] MEDS: IPRATROPIUM-ALBUTEROL 3 ML NEB INHALATION SCH ×6 (01:21→20:40)
[2023-04-02] MEDS: HYDROmorphone 1 MG/ML 1 ML SYRINGE IVP PRN ×5 (01:39→21:22)
[2023-04-02 02:11] LABS: Glucose,Whole Blood 196 mg/dL (70-110)
[2023-04-02 03:07] LABS: Glucose,Whole Blood 191 mg/dL (70-110)
[2023-04-02 04:14] LABS: Glucose,Whole Blood 166 mg/dL (70-110)
[2023-04-02 05:06] LABS: Glucose,Whole Blood 174 mg/dL (70-110)
[2023-04-02 05:42] LABS: ABG Base Excess 5.4 mmol/L; ABG HCO3 30 mmol/L (21-25); ABG Oxygen Saturation 96.9 % (94-97); ABG PCO2 51 mmHg (35-45); ABG PH 7.39 (7.35-7.45); ABG PO2 84 mmHg (83-108); ABG TCO2 32 mmol/L (19-24); Allen Test Performed? Yes
[2023-04-02 05:56] LABS: Glucose,Whole Blood 169 mg/dL (70-110)
[2023-04-02 06:01] LABS: Anisocytosis Slight; Basophils # (A) 0.1 k/uL (0-0.2); Basophils % (A) 0 %; Eosinophils # (A) 0.2 k/uL (0-0.7); Eosinophils % (A) 2 %; HCT 22.5 % (34.0-46.0); HGB 7.2 gm/dL (11.4-16.0); Hypochromasia Slight; Lymphocytes # (A) 1.5 k/uL (1.0-4.8); Lymphocytes % (A) 15 %; MCH 29.5 pg (25.0-35.0); Mean Platelet Volume 9.2; Monocytes # (A) 0.7 k/uL (0-1.0); Monocytes % (A) 7 %; Neutrophils % (A) 75 %; Platelet Count 244 k/uL (150-450); RBC 2.45 m/uL (3.80-5.40); WBC 10.6 k/uL (3.8-10.6)
[2023-04-02] MEDS: SODIUM CHLORIDE 0.9% 1,000 ML IV SCH (06:01)
[2023-04-02 06:03] LABS: Potassium 4.9 mmol/L (3.5-5.1)
[2023-04-02] MEDS: HEPARIN SODIUM 1,000 UN/ML (10ML VL) IV PRN (06:27)
[2023-04-02 06:55] LABS: Glucose,Whole Blood 159 mg/dL (70-110)
[2023-04-02] MEDS: HYDROmorphone 0.5 MG/0.5 ML SYRINGE IVP PRN (06:58)
[2023-04-02] MEDS: ASPIRIN 81 MG PO SCH ×2 (08:18→20:33)
[2023-04-02] MEDS: CHLORHEXIDINE GLUCONATE 15 ML CUP MUCOUS MEM SCH ×2 (08:18→20:33)
[2023-04-02] MEDS: FERROUS SULFATE 325 MG TAB PO SCH (08:18)
[2023-04-02] MEDS: PANTOPRAZOLE 40 MG/10 ML VIAL IV SCH (08:18)
[2023-04-02] MEDS: DOXYCYCLINE 100 MG CAP PO SCH (08:18)
[2023-04-02] MEDS: FLUoxetine HCL 20 MG CAP PO SCH (08:18)
--- NOTE | 2023-04-02 08:46 | P.PN ---
Subjective Progress Note Date: 04/02/23 Patient remains intubated and sedated. Per nursing the patient failed weaning off of that yesterday. She has pneumonia and also aspirated tube feed. No acute issues this morning other than that. Objective - Vital Signs Vital signs: Vital Signs Temp 98.8 F 04/02/23 08:00 Pulse 110 H 04/02/23 08:00 Resp 32 H 04/02/23 08:00 BP 138/50 04/02/23 03:00 Pulse Ox 93 L 04/02/23 08:00 FiO2 75 04/02/23 08:00 Intake & Output 04/01/23 04/02/23 04/02/23 18:59 06:59 18:59 Intake Total 589.396 5833.631 178 Output Total 1575 865 150 Balance -633.710 561.631 28 Weight 131.2 kg 131 kg Intake: IV 410 290 90 Sodium Chloride 0.9% 1, 360 240 40 000 ml @ 20 mls/hr IV . Q24H [facility] Rx#:[id number] cefTRIAXone 1 gm In 50 50 50 Sodium Chloride 0.9% 50 ml @ 100 mls/hr IVPB Q12HR [facility] Rx#:[id number] Intake, IV Titration 412.290 784.631 Amount Heparin Sod,Pork in 0.45% 60.265 317.881 NaCl 25,000 unit In 0.45 % NaCl 1 250ml.bag @ 8.65 UNITS/KG/HR 10.005 mls/ hr IV .Q24H [facility] Rx#: [id number] Insulin Regular 100 unit 38.496 27.95 In Sodium Chloride 0.9% 100 ml @ Titrate IV .Q0M [facility] Rx#:[id number] Norepinephrine 32 mg In 27.009 Sodium Chloride 0.9% 218 ml @ 0.03 MCG/KG/MIN 1. 627 mls/hr IV .Q24H [facility] Rx#:[id number] propofoL 1,000 mg In 286.520 438.80 Empty Bag 1 bag @ 15 MCG/ KG/MIN 10.41 mls/hr IV . Q9H37M [facility] Rx#:[id number] Tube Feeding 29 232 58 Other 90 120 30 Output: Gastric Drainage 55 Urine 1520 865 150 Other: Voiding Method Indwelling Catheter Indwelling Catheter ABP, PAP, CO, CI - Last Documented Arterial Blood Pressure 159/61 - Exam The patient is intubated and sedated. On inspection of the right leg there is a knee immobilizer in place which was taken down. The incisional wound VAC is in place with good seal. There is diffuse swelling throughout both legs. The right foot is warm and well perfused with brisk capillary refill. - Labs CBC & Chem 7: 04/02/23 05:10 04/02/23 05:10 Labs: Abnormal Lab Results - Last 24 Hours (Table) 04/01/23 04/01/23 04/01/23 Range/Units 08:53 10:17 11:14 RBC (3.80-5.40) m/uL Hgb (11.4-16.0) gm/dL Hct (34.0-46.0) % RDW (11.5-15.5) % Neutrophils # (1.3-7.7) k/uL APTT (22.0-30.0) sec ABG pCO2 (35-45) mmHg ABG HCO3 (21-25) mmol/L ABG Total CO2 (19-24) mmol/L Chloride (98-107) mmol/L Carbon Dioxide (22-30) mmol/L BUN (7-17) mg/dL Creatinine (0.52-1.04) mg/dL Glucose (74-99) mg/dL POC Glucose (mg/dL) 174 H 162 H 153 H (70-110) mg/dL 04/01/23 04/01/23 04/01/23 Range/Units 12:28 13:10 14:08 RBC (3.80-5.40) m/uL Hgb (11.4-16.0) gm/dL Hct (34.0-46.0) % RDW (11.5-15.5) % Neutrophils # (1.3-7.7) k/uL APTT (22.0-30.0) sec ABG pCO2 (35-45) mmHg ABG HCO3 (21-25) mmol/L ABG Total CO2 (19-24) mmol/L Chloride (98-107) mmol/L Carbon Dioxide (22-30) mmol/L BUN (7-17) mg/dL Creatinine (0.52-1.04) mg/dL Glucose (74-99) mg/dL POC Glucose (mg/dL) 134 H 148 H 185 H (70-110) mg/dL 04/01/23 04/01/23 04/01/23 Range/Units 15:11 16:06 17:00 RBC (3.80-5.40) m/uL Hgb (11.4-16.0) gm/dL Hct (34.0-46.0) % RDW (11.5-15.5) % Neutrophils # (1.3-7.7) k/uL APTT (22.0-30.0) sec ABG pCO2 (35-45) mmHg ABG HCO3 (21-25) mmol/L ABG Total CO2 (19-24) mmol/L Chloride (98-107) mmol/L Carbon Dioxide (22-30) mmol/L BUN (7-17) mg/dL Creatinine (0.52-1.04) mg/dL Glucose (74-99) mg/dL POC Glucose (mg/dL) 198 H 189 H 178 H (70-110) mg/dL 04/01/23 04/01/23 04/01/23 Range/Units 18:00 18:58 19:50 RBC (3.80-5.40) m/uL Hgb (11.4-16.0) gm/dL Hct (34.0-46.0) % RDW (11.5-15.5) % Neutrophils # (1.3-7.7) k/uL APTT (22.0-30.0) sec ABG pCO2 (35-45) mmHg ABG HCO3 (21-25) mmol/L ABG Total CO2 (19-24) mmol/L Chloride (98-107) mmol/L Carbon Dioxide (22-30) mmol/L BUN (7-17) mg/dL Creatinine (0.52-1.04) mg/dL Glucose (74-99) mg/dL POC Glucose (mg/dL) 161 H 148 H 143 H (70-110) mg/dL 04/01/23 04/01/23 04/01/23 Range/Units 21:08 22:20 23:09 RBC (3.80-5.40) m/uL Hgb (11.4-16.0) gm/dL Hct (34.0-46.0) % RDW (11.5-15.5) % Neutrophils # (1.3-7.7) k/uL APTT (22.0-30.0) sec ABG pCO2 (35-45) mmHg ABG HCO3 (21-25) mmol/L ABG Total CO2 (19-24) mmol/L Chloride (98-107) mmol/L Carbon Dioxide (22-30) mmol/L BUN (7-17) mg/dL Creatinine (0.52-1.04) mg/dL Glucose (74-99) mg/dL POC Glucose (mg/dL) 132 H 161 H 179 H (70-110) mg/dL 04/02/23 04/02/23 04/02/23 Range/Units 00:19 01:04 02:09 RBC (3.80-5.40) m/uL Hgb (11.4-16.0) gm/dL Hct (34.0-46.0) % RDW (11.5-15.5) % Neutrophils # (1.3-7.7) k/uL APTT (22.0-30.0) sec ABG pCO2 (35-45) mmHg ABG HCO3 (21-25) mmol/L ABG Total CO2 (19-24) mmol/L Chloride (98-107) mmol/L Carbon Dioxide (22-30) mmol/L BUN (7-17) mg/dL Creatinine (0.52-1.04) mg/dL Glucose (74-99) mg/dL POC Glucose (mg/dL) 180 H 193 H 196 H (70-110) mg/dL 04/02/23 04/02/23 04/02/23 Range/Units 03:04 04:13 05:05 RBC (3.80-5.40) m/uL Hgb (11.4-16.0) gm/dL Hct (34.0-46.0) % RDW (11.5-15.5) % Neutrophils # (1.3-7.7) k/uL APTT (22.0-30.0) sec ABG pCO2 (35-45) mmHg ABG HCO3 (21-25) mmol/L ABG Total CO2 (19-24) mmol/L Chloride (98-107) mmol/L Carbon Dioxide (22-30) mmol/L BUN (7-17) mg/dL Creatinine (0.52-1.04) mg/dL Glucose (74-99) mg/dL POC Glucose (mg/dL) 191 H 166 H 174 H (70-110) mg/dL 04/02/23 04/02/23 04/02/23 Range/Units 05:10 05:10 05:10 RBC 2.45 L (3.80-5.40) m/uL Hgb 7.2 L (11.4-16.0) gm/dL Hct 22.5 L (34.0-46.0) % RDW 16.0 H (11.5-15.5) % Neutrophils # 8.0 H (1.3-7.7) k/uL APTT 35.6 H (22.0-30.0) sec ABG pCO2 (35-45) mmHg ABG HCO3 (21-25) mmol/L ABG Total CO2 (19-24) mmol/L Chloride 110 H (98-107) mmol/L Carbon Dioxide 31 H (22-30) mmol/L BUN 53 H (7-17) mg/dL Creatinine 1.09 H (0.52-1.04) mg/dL Glucose 148 H (74-99) mg/dL POC Glucose (mg/dL) (70-110) mg/dL 04/02/23 04/02/23 04/02/23 Range/Units 05:40 05:55 06:53 RBC (3.80-5.40) m/uL Hgb (11.4-16.0) gm/dL Hct (34.0-46.0) % RDW (11.5-15.5) % Neutrophils # (1.3-7.7) k/uL APTT (22.0-30.0) sec ABG pCO2 51 H (35-45) mmHg ABG HCO3 30 H (21-25) mmol/L ABG Total CO2 32 H (19-24) mmol/L Chloride (98-107) mmol/L Carbon Dioxide (22-30) mmol/L BUN (7-17) mg/dL Creatinine (0.52-1.04) mg/dL Glucose (74-99) mg/dL POC Glucose (mg/dL) 169 H 159 H (70-110) mg/dL Microbiology - Last 24 Hours (Table) 04/01/23 10:00 Fungal Culture - Preliminary Bronchial Washings - Left 04/01/23 10:00 Bronchial Washings Culture - Preliminary Bronchial Washings - Left 03/29/23 06:13 Blood Culture - Preliminary Blood Assessment and Plan Plan: The patient remains very sick and is still intubated and sedated. In regards the patient's right leg her incisional wound VAC is intact and the knee immobilizers in place. She is on Rocephin for her pneumonia and doxycycline for prophylaxis following her complicated revision knee surgery. I would recommend transferring service to internal medicine and will continue to follow very closely while the patient is an inpatient.
[2023-04-02 08:50] LABS: Glucose,Whole Blood 164 mg/dL (70-110)
--- NOTE | 2023-04-02 10:15 | P.PN ---
Subjective Patient is seen in follow-up for acute kidney injury on chronic kidney disease. Renal function improving. Potassium level normal. On insulin drip. Off Levophed. Nonoliguric. Intubated. Vital signs are stable. General: Resting in bed. HEENT: Intubated. LUNGS: Scattered rhonchi. HEART: Tachycardic. ABDOMEN: Soft, no distention. EXTREMITITES: 1+ edema. Objective - Vital Signs Vital signs: Vital Signs Temp 98.8 F 04/02/23 08:00 Pulse 105 H 04/02/23 09:00 Resp 32 H 04/02/23 09:00 BP 138/50 04/02/23 03:00 Pulse Ox 92 L 04/02/23 09:00 FiO2 75 04/02/23 08:00 Intake & Output 04/01/23 04/02/23 04/02/23 18:59 06:59 18:59 Intake Total 717.287 6442.631 251.296 Output Total 1575 865 260 Balance -633.710 561.631 -8.704 Weight 131.2 kg 131 kg Intake: IV 410 290 110 Sodium Chloride 0.9% 1, 360 240 60 000 ml @ 20 mls/hr IV . Q24H [facility] Rx#:[id number] cefTRIAXone 1 gm In 50 50 50 Sodium Chloride 0.9% 50 ml @ 100 mls/hr IVPB Q12HR [facility] Rx#:[id number] Intake, IV Titration 412.290 784.631 24.296 Amount Heparin Sod,Pork in 0.45% 60.265 317.881 NaCl 25,000 unit In 0.45 % NaCl 1 250ml.bag @ 8.65 UNITS/KG/HR 10.005 mls/ hr IV .Q24H [facility] Rx#: [id number] Insulin Regular 100 unit 38.496 27.95 24.296 In Sodium Chloride 0.9% 100 ml @ Titrate IV .Q0M [facility] Rx#:[id number] Norepinephrine 32 mg In 27.009 Sodium Chloride 0.9% 218 ml @ 0.03 MCG/KG/MIN 1. 627 mls/hr IV .Q24H [facility] Rx#:[id number] propofoL 1,000 mg In 286.520 438.80 Empty Bag 1 bag @ 15 MCG/ KG/MIN 10.41 mls/hr IV . Q9H37M [facility] Rx#:[id number] Tube Feeding 29 232 87 Other 90 120 30 Output: Gastric Drainage 55 Urine 1520 865 260 Other: Voiding Method Indwelling Catheter Indwelling Catheter ABP, PAP, CO, CI - Last Documented Arterial Blood Pressure 140/57 - Labs CBC & Chem 7: 04/02/23 05:10 04/02/23 05:10 Labs: Abnormal Lab Results - Last 24 Hours (Table) 04/01/23 04/01/23 04/01/23 Range/Units 10:17 11:14 12:28 RBC (3.80-5.40) m/uL Hgb (11.4-16.0) gm/dL Hct (34.0-46.0) % RDW (11.5-15.5) % Neutrophils # (1.3-7.7) k/uL APTT (22.0-30.0) sec ABG pCO2 (35-45) mmHg ABG HCO3 (21-25) mmol/L ABG Total CO2 (19-24) mmol/L Chloride (98-107) mmol/L Carbon Dioxide (22-30) mmol/L BUN (7-17) mg/dL Creatinine (0.52-1.04) mg/dL Glucose (74-99) mg/dL POC Glucose (mg/dL) 162 H 153 H 134 H (70-110) mg/dL 04/01/23 04/01/23 04/01/23 Range/Units 13:10 14:08 15:11 RBC (3.80-5.40) m/uL Hgb (11.4-16.0) gm/dL Hct (34.0-46.0) % RDW (11.5-15.5) % Neutrophils # (1.3-7.7) k/uL APTT (22.0-30.0) sec ABG pCO2 (35-45) mmHg ABG HCO3 (21-25) mmol/L ABG Total CO2 (19-24) mmol/L Chloride (98-107) mmol/L Carbon Dioxide (22-30) mmol/L BUN (7-17) mg/dL Creatinine (0.52-1.04) mg/dL Glucose (74-99) mg/dL POC Glucose (mg/dL) 148 H 185 H 198 H (70-110) mg/dL 04/01/23 04/01/23 04/01/23 Range/Units 16:06 17:00 18:00 RBC (3.80-5.40) m/uL Hgb (11.4-16.0) gm/dL Hct (34.0-46.0) % RDW (11.5-15.5) % Neutrophils # (1.3-7.7) k/uL APTT (22.0-30.0) sec ABG pCO2 (35-45) mmHg ABG HCO3 (21-25) mmol/L ABG Total CO2 (19-24) mmol/L Chloride (98-107) mmol/L Carbon Dioxide (22-30) mmol/L BUN (7-17) mg/dL Creatinine (0.52-1.04) mg/dL Glucose (74-99) mg/dL POC Glucose (mg/dL) 189 H 178 H 161 H (70-110) mg/dL 04/01/23 04/01/23 04/01/23 Range/Units 18:58 19:50 21:08 RBC (3.80-5.40) m/uL Hgb (11.4-16.0) gm/dL Hct (34.0-46.0) % RDW (11.5-15.5) % Neutrophils # (1.3-7.7) k/uL APTT (22.0-30.0) sec ABG pCO2 (35-45) mmHg ABG HCO3 (21-25) mmol/L ABG Total CO2 (19-24) mmol/L Chloride (98-107) mmol/L Carbon Dioxide (22-30) mmol/L BUN (7-17) mg/dL Creatinine (0.52-1.04) mg/dL Glucose (74-99) mg/dL POC Glucose (mg/dL) 148 H 143 H 132 H (70-110) mg/dL 04/01/23 04/01/23 04/02/23 Range/Units 22:20 23:09 00:19 RBC (3.80-5.40) m/uL Hgb (11.4-16.0) gm/dL Hct (34.0-46.0) % RDW (11.5-15.5) % Neutrophils # (1.3-7.7) k/uL APTT (22.0-30.0) sec ABG pCO2 (35-45) mmHg ABG HCO3 (21-25) mmol/L ABG Total CO2 (19-24) mmol/L Chloride (98-107) mmol/L Carbon Dioxide (22-30) mmol/L BUN (7-17) mg/dL Creatinine (0.52-1.04) mg/dL Glucose (74-99) mg/dL POC Glucose (mg/dL) 161 H 179 H 180 H (70-110) mg/dL 04/02/23 04/02/23 04/02/23 Range/Units 01:04 02:09 03:04 RBC (3.80-5.40) m/uL Hgb (11.4-16.0) gm/dL Hct (34.0-46.0) % RDW (11.5-15.5) % Neutrophils # (1.3-7.7) k/uL APTT (22.0-30.0) sec ABG pCO2 (35-45) mmHg ABG HCO3 (21-25) mmol/L ABG Total CO2 (19-24) mmol/L Chloride (98-107) mmol/L Carbon Dioxide (22-30) mmol/L BUN (7-17) mg/dL Creatinine (0.52-1.04) mg/dL Glucose (74-99) mg/dL POC Glucose (mg/dL) 193 H 196 H 191 H (70-110) mg/dL 04/02/23 04/02/23 04/02/23 Range/Units 04:13 05:05 05:10 RBC 2.45 L (3.80-5.40) m/uL Hgb 7.2 L (11.4-16.0) gm/dL Hct 22.5 L (34.0-46.0) % RDW 16.0 H (11.5-15.5) % Neutrophils # 8.0 H (1.3-7.7) k/uL APTT (22.0-30.0) sec ABG pCO2 (35-45) mmHg ABG HCO3 (21-25) mmol/L ABG Total CO2 (19-24) mmol/L Chloride (98-107) mmol/L Carbon Dioxide (22-30) mmol/L BUN (7-17) mg/dL Creatinine (0.52-1.04) mg/dL Glucose (74-99) mg/dL POC Glucose (mg/dL) 166 H 174 H (70-110) mg/dL 04/02/23 04/02/23 04/02/23 Range/Units 05:10 05:10 05:40 RBC (3.80-5.40) m/uL Hgb (11.4-16.0) gm/dL Hct (34.0-46.0) % RDW (11.5-15.5) % Neutrophils # (1.3-7.7) k/uL APTT 35.6 H (22.0-30.0) sec ABG pCO2 51 H (35-45) mmHg ABG HCO3 30 H (21-25) mmol/L ABG Total CO2 32 H (19-24) mmol/L Chloride 110 H (98-107) mmol/L Carbon Dioxide 31 H (22-30) mmol/L BUN 53 H (7-17) mg/dL Creatinine 1.09 H (0.52-1.04) mg/dL Glucose 148 H (74-99) mg/dL POC Glucose (mg/dL) (70-110) mg/dL 04/02/23 04/02/23 04/02/23 Range/Units 05:55 06:53 08:47 RBC (3.80-5.40) m/uL Hgb (11.4-16.0) gm/dL Hct (34.0-46.0) % RDW (11.5-15.5) % Neutrophils # (1.3-7.7) k/uL APTT (22.0-30.0) sec ABG pCO2 (35-45) mmHg ABG HCO3 (21-25) mmol/L ABG Total CO2 (19-24) mmol/L Chloride (98-107) mmol/L Carbon Dioxide (22-30) mmol/L BUN (7-17) mg/dL Creatinine (0.52-1.04) mg/dL Glucose (74-99) mg/dL POC Glucose (mg/dL) 169 H 159 H 164 H (70-110) mg/dL Microbiology - Last 24 Hours (Table) 04/01/23 10:00 Fungal Culture - Preliminary Bronchial Washings - Left 04/01/23 10:00 Bronchial Washings Culture - Preliminary Bronchial Washings - Left 03/29/23 06:13 Blood Culture - Preliminary Blood Assessment and Plan Plan: Assessment: 1. Acute kidney injury secondary to hemodynamic ATN/shock. Creatinine 1.29 on admission and peaked at 2.43 this admission - 1.09 today. Nonoliguric. No hydronephrosis noted on kidney ultrasound. Left kidney not visualized. 2. Chronic kidney disease stage IIIa with baseline creatinine 1-1.2 secondary to nephrosclerosis/diabetic kidney disease. 3. History of hypercalcemia maintained on Sensipar. Sensipar held. Calcium level fairly stable. 4. Acute blood loss anemia status post blood transfusions this admission. Hemoglobin 7.9 today. 5. Hyperkalemia secondary to acute kidney injury, hyperglycemia, acidosis and acute blood loss. Improved with medical management. 6. Status post knee revision 03/28/2023. 7. Diabetes mellitus. 8. Questionable PE with severe pulmonary hypertension and moderate to severe t ricuspid regurgitation. On heparin drip. 9. Lower extremity edema. Plan: Maintain tube feeds. Status post Lasix 40 mg IV given 04/01/2023. Blood sugar control. Currently on insulin drip. Continue to monitor renal function and urine output. Avoid nephrotoxins. Continue to hold Sensipar for now. Check albumin and calcium level in a.m.
[2023-04-02] MEDS ORDERED: FUROSEMIDE 10 MG/ML 4 ML VIAL IV STA (10:17)
[2023-04-02] MEDS: PIPERACILLIN-TAZOBACTAM 3.375 GM in SODIUM CHLORIDE 0.9% 100 ML IVPB SCH ×2 (10:40→17:06)
--- NOTE | 2023-04-02 10:40 | XR ---
EXAMINATION TYPE: XR chest 1V DATE OF EXAM: 04/02/2023 CLINICAL HISTORY: Difficulty breathing progress study. Possible aspiration. TECHNIQUE: Single AP portable upright view of the chest is obtained. COMPARISON: Chest x-ray from one day earlier and older studies. FINDINGS: Stable endotracheal and orogastric tubes. Stable left-sided subclavian central venous cath eter. Persistent mild cardiomegaly with retrocardiac consolidation silhouetting left hemidiaphragm. Develop ing right basilar opacity noted. Increasing central vascular congestion seen. Osseous structures are intact. IMPRESSION: Cardiomegaly with increasing central vascular congestion. Correlate for CHF exacerbation. Developing right basilar acute infiltrate and/or atelectasis is also noted. Aspiration pneumonia is in the differential.
[2023-04-02 10:53] LABS: Glucose,Whole Blood 163 mg/dL (70-110)
--- NOTE | 2023-04-02 12:34 | P.PN ---
Subjective Progress Note Date: 04/02/23 Principal diagnosis: Acute hypoxic respiratory failure post repair of right comminuted fracture of distal femur adjacent to the knee prosthesis, postoperative day #5 I'm seeing this patient in new consultation today 03/29/2023 following a repair of a comminuted periprosthetic distal femur fracture. Patient is a 72-year-old white female with significant past medical history of previous right total knee replacement on 07/23/2022, diabetes mellitus, hypertension, obstructive sleep apnea, bilateral mastectomy for suspected breast cancer, and is an ex-smoker. Patient presented to the emergency room on 03/26/2023 after she tripped over a cord at the [facility], and landed on her right knee. A CT of the right femur without contrast showed a comminuted fracture of the distal metadiaphyseal femur adjacent to the knee prosthesis, and there was displacement of the distal fra cture fragment from the proximal fracture. She was admitted to the hospital, and taken to the operating room yesterday evening. Patient reportedly had stabilization of the distal femur fracture with revision of the right knee prosthesis. Intraoperatively, the patient became hypotensive requiring multiple fluid boluses with a total of 2.8 L of lactated Ringer's, 1 L albumin, and was subsequently started on a Woody-Synephrine infusion. Patient's hemoglobin level was reportedly 6.8 intraoperatively, and the patient received a total of 2 units PRBC. Patient was then transferred to the intensive care unit in critical condition. Patient is currently lying in bed, intubated to the mechanical ventilator. Initial ventilator settings were assist control, respiratory rate 14, tidal volume 350, FiO2 100%, PEEP of 5. ABGs done on these settings showed a pO2 of 108, pCO2 of 75, pH of 7.07. The patient's respiratory rate was increased to 20 and tidal volume to 400. Peak pressures are currently 31 and vital pressures are 18. Propofol infusing for sedation at 30 mcg/kg/m. Patient is synchronous mechanical ventilator. Postoperative chest x-ray shows endotracheal tube above the radha, cardiomegaly, and small left pleural effusion. So far, the patient is still hypotensive, and will be given an additional liter of normal saline. Patient was transitioned to Levophed, and is currently infusing at 0.28 mics per kilogram per minute. A left radial arterial line was inserted. There is a i ndwelling urinary catheter in place, with only about 10 ML's of urine since surgery. Patient does have a Hemovac from the right postsurgical knee draining small amount of sanguinous output. Patient does have a right knee immobilizer in place. There is postsurgical wound VAC in place. Dilaudid is on for analgesia. Postoperative CBC after 2 units PRBC transfusion shows a WBC count of 25, hemoglobin 9.1, hematocrit 28.7, platelets 405. BMP postoperatively shows a sodium 136, potassium 6.9, chloride 100, serum CO2 22, BUN 34, creatinine 1.74, glucose 232. LFTs are elevated with an AST of 1044 and ALT of 154. Patient's hyperkalemia will be treated with 10 units regular insulin, 1 amp D50 W, 1 g calcium gluconate, and albuterol. Lactic acid level is 4.2, and is receiving an additional liter of normal saline. Patient will be monitored in the intensive care unit. Reevaluated today on 03/30/2023, patient remains in the ICU, intubated and mechanically ventilated. Patient is now on assist control rate of 50 to tidal volume 420 FiO2 60% PEEP of 8. ABG showed a pO2 of 72 pCO2 55 pH of 7.31, hence I was able to increase the rate to 34 FiO2 cut down to 55% and The PEEP to 8. remains on propofol at 50 mcg/kg/m, norepinephrine 0.12 mcg/kg/m Nimbex at 0.5 mcg/kg/m insulin at 14 units an hour and she is on bicarb drip which I discontinued. I have also recommended stopping Nimbex and transitioning the patient to fentanyl instead. Again I'm planning to discontinue Nimbex today and discontinue bicarb. Renal functioning is a bit worse today compared to yesterday, creatinine is 2.43 and it was 2.37. Baseline is 1.29. Hence this prohibits us from performing a CT angiogram of the chest, and I'm recommending that we continue heparin. WBC count today is 14 hemoglobin is 8.8. Her PTT is therapeutic at 66.5. Liver enzymes are elevated with elevated AST of 3981 and elevated ALT of 375 which indicates that the patient may have a shocked liver. Chest x-ray showed small pleural effusion and small areas of left lower lobe atelectasis without pneumonia. Lower extremities Doppler is negative for DVT. Patient was evaluated today on 03/31/2023, remains in the ICU, intubated and mechanically ventilated. Patient is on assist control rate of 34 tidal volume 420 FiO2 45% PEEP of 8 ABG showed a pO2 of 95 pCO2 49 pH of 7.35 hence I made changes on the ventilator with going to rate 32, tidal volume increased to 450 FiO2 increased to 50% and repeat down to 5. Patient is still on multiple drips including insulin at 8.17 units an hour propofol at 14 mcg/kg/m norepinephrine at 0.11 mcg/kg/m fentanyl at 1 mcg/kg/h and she is receiving vital HPI 29 mL per hour. IV fluid is 0.9 at 50 mL per hour today I changed fentanyl to 0.5 mcg/kg/h and asked nursing staff to adjust the propofol up and down accordingly. We definitely like to assess mental status today off sedation if possible but will try to titrate propofol and set of titrating both, fentanyl and propofol at the same time. Chest x-ray continues to show left lower lobe atelectasis and small left pleural effusion. WBC count is 15 hemoglobin is 8.3, basic metabolic profile is normal, renal profile is improving with BUN down to 51 and creatinine of 1.59. We will continue IV fluid at 50 mL per hour patient is making good amount of urine on her own no need for diuretics at this point and no need to cut down significantly on the fluids at this point since the patient is not developing congestive heart failure and the findings on the chest x-ray are mostly findings of atelectasis and possibly small left-sided pleural effusion. Blood sugars are controlled with the insulin drip. Liver enzymes are improving AST is down to 963 from 184 to yesterday. And her ALT is down to 149 from 208 yesterday. Cultures of urine and blood and sputum are still negative so far patient remains on heparin and I have no plans to start the patient for a CT angiogram of the chest as long as renal profile seems to be abnormal. Patient was reevaluated today on 04/01/2023, remains in the ICU, intubated and mechanically ventilated. She is now on assist control rate of 32 tidal volume of 450 FiO2 45% and PEEP of 5 ABG showed a pO2 of 65 pCO2 43 pH of 7.34 hence FiO2 was increased to 50%. Chest x-ray showed atelectasis of the left lower lobe as the patient underwent bronchoscopy today, and suction some tenacious secretions in the left lower lobe bronchus. No evidence of any other significant findings. Fluid obtained was sent for diagnostic studies. Patient remains on propofol at 20 mcg/kg/m she is also on heparin drip for presumptive pulmonary embolism she is receiving insulin at 5.3 units per hour norepinephrine at low-dose, however this was discontinued once the patient woke up and evaluated off propofol. Patient remains on Rocephin empirically, cultures have been negative so far. Awaiting cultures from the BAL of the left lower lobe today. Obviously the patient is not quite ready for weaning off propofol she was noted to be tachypneic, tachycardic, and her blood pressure was as high as 200 systolic. Hence no further weaning to be done today. And her ventilator settings will be adjusted accordingly after bronchoscopy and BAL. Labs today were reviewed she has a bit of leukocytosis with WBC count of 16.9 her PTT is therapeutic at 45.7 and electrolytes are normal BUN is down to 46 creatinine is down to 1.20 will continue to monitor heparin for now and monitor her renal status, may eventually recommend CT angiogram of the chest to confirm whether the patient had thromboembolic disease/pulmonary embolism. Pro calcitonin level was 1.91, nonetheless patient remains on Rocephin. So far urine cultures and blood cultures and sputum cultures have been negative Patient was reevaluated today on 04/02/2023, remains in the ICU, intubated and mechanically ventilated. Patient had a bit of a setback last night, apparently there was some issues with the nasogastric tube, and it was felt that the patient may have aspirated some of her feedings from the nasogastric tube, hence this tube was removed and another tube was placed, follow-up chest x-ray showed adequate placement of the orogastric tube. In the meantime the patient desaturated and she required increase in her FiO2. She went up as high as 75% PEEP was increased to 8 and today I recommended increasing the PEEP to 12 and FiO2 down to 65%. And advised titration. Chest x-ray continues to show left lower lobe consolidation. Right side seems to be relatively clear. ABG this morning showed a pO2 of 84 pCO2 51 pH of 7.39. Patient is on propofol at 50 mcg/kg/m she is also on insulin at 4.25 units per hour vital HPI 29 mL/h she is off norepinephrine. Considering the aspiration situation I recommended that we change antibiotics to Zosyn cultures from the BAL of the left lower lobe are pending. Her vent settings changed to assist control rate of 32 tidal volume 450 FiO2 65% and PEEP of 12. WBC count is 10.6 hemoglobin is 7.2 PTT is 35.6, electrolytes are normal BUN is 53 creatinine 1.[address] angiogram of the chest in the next 24-48 hours in the meantime the patient seems to be tolerating heparin will Objective - Vital Signs Vital signs: Vital Signs Temp 98.8 F 04/02/23 08:00 Pulse 90 04/02/23 11:33 Resp 32 H 04/02/23 11:15 BP 138/50 04/02/23 03:00 Pulse Ox 94 L 04/02/23 11:15 FiO2 65 04/02/23 11:39 Intake & Output 04/01/23 04/02/23 04/02/23 18:59 06:59 18:59 Intake Total 549.150 1431.631 631.419 Output Total 1575 865 570 Balance -633.710 561.631 61.419 Weight 131.2 kg 131 kg Intake: IV 410 290 250 Piperacillin-Tazobactam 3 100 .375 gm In Sodium Chloride 0.9% 100 ml @ 25 mls/hr IVPB Q8HR [facility] Rx# :[id number] Sodium Chloride 0.9% 1, 360 240 100 000 ml @ 20 mls/hr IV . Q24H [facility] Rx#:[id number] cefTRIAXone 1 gm In 50 50 50 Sodium Chloride 0.9% 50 ml @ 100 mls/hr IVPB Q12HR [facility] Rx#:[id number] Intake, IV Titration 412.290 784.631 206.419 Amount Heparin Sod,Pork in 0.45% 60.265 317.881 NaCl 25,000 unit In 0.45 % NaCl 1 250ml.bag @ 8.65 UNITS/KG/HR 10.005 mls/ hr IV .Q24H [facility] Rx#: [id number] Insulin Regular 100 unit 38.496 27.95 24.296 In Sodium Chloride 0.9% 100 ml @ Titrate IV .Q0M [facility] Rx#:[id number] Norepinephrine 32 mg In 27.009 Sodium Chloride 0.9% 218 ml @ 0.03 MCG/KG/MIN 1. 627 mls/hr IV .Q24H [facility] Rx#:[id number] propofoL 1,000 mg In 286.520 438.80 182.123 Empty Bag 1 bag @ 15 MCG/ KG/MIN 10.41 mls/hr IV . Q9H37M [facility] Rx#:[id number] Tube Feeding 29 232 145 Other 90 120 30 Output: Gastric Drainage 55 Urine 1520 865 570 Other: Voiding Method Indwelling Catheter Indwelling Catheter Indwelling Catheter ABP, PAP, CO, CI - Last Documented Arterial Blood Pressure 129/44 - Exam Physical Exam: Revealed a 72-year-old female , intubated, sedated, not in distress. Head: Atraumatic, normocephalic. HEENT:[Neck is supple.] [No neck masses.] [No thyromegaly.] [No JVD.] Left subclavian central line is noted. Chest: [Fine crackles at the bases. Symmetrical chest expansion, no rhonchi no wheezes Cardiac Exam: [Normal S1 and S2, no S3 gallop, no murmur.] Abdomen: [Obese, Soft, nontender, no megaly, no rebound, no guarding, normal bowel sounds.] Extremities: [No clubbing, left knee is immobilized. 1+ to 2+ bipedal edema Neurological Exam: Could not assess today, however yesterday on a lower dose of propofol, patient was only opening and closing eyes but not following any other instructions. Psychiatric: Could not be assessed patient is sedated. - Labs CBC & Chem 7: 04/02/23 05:10 04/02/23 05:10 Labs: Abnormal Lab Results - Last 24 Hours (Table) 04/01/23 04/01/23 04/01/23 Range/Units 12:28 13:10 14:08 RBC (3.80-5.40) m/uL Hgb (11.4-16.0) gm/dL Hct (34.0-46.0) % RDW (11.5-15.5) % Neutrophils # (1.3-7.7) k/uL APTT (22.0-30.0) sec ABG pCO2 (35-45) mmHg ABG HCO3 (21-25) mmol/L ABG Total CO2 (19-24) mmol/L Chloride (98-107) mmol/L Carbon Dioxide (22-30) mmol/L BUN (7-17) mg/dL Creatinine (0.52-1.04) mg/dL Glucose (74-99) mg/dL POC Glucose (mg/dL) 134 H 148 H 185 H (70-110) mg/dL 04/01/23 04/01/23 04/01/23 Range/Units 15:11 16:06 17:00 RBC (3.80-5.40) m/uL Hgb (11.4-16.0) gm/dL Hct (34.0-46.0) % RDW (11.5-15.5) % Neutrophils # (1.3-7.7) k/uL APTT (22.0-30.0) sec ABG pCO2 (35-45) mmHg ABG HCO3 (21-25) mmol/L ABG Total CO2 (19-24) mmol/L Chloride (98-107) mmol/L Carbon Dioxide (22-30) mmol/L BUN (7-17) mg/dL Creatinine (0.52-1.04) mg/dL Glucose (74-99) mg/dL POC Glucose (mg/dL) 198 H 189 H 178 H (70-110) mg/dL 04/01/23 04/01/23 04/01/23 Range/Units 18:00 18:58 19:50 RBC (3.80-5.40) m/uL Hgb (11.4-16.0) gm/dL Hct (34.0-46.0) % RDW (11.5-15.5) % Neutrophils # (1.3-7.7) k/uL APTT (22.0-30.0) sec ABG pCO2 (35-45) mmHg ABG HCO3 (21-25) mmol/L ABG Total CO2 (19-24) mmol/L Chloride (98-107) mmol/L Carbon Dioxide (22-30) mmol/L BUN (7-17) mg/dL Creatinine (0.52-1.04) mg/dL Glucose (74-99) mg/dL POC Glucose (mg/dL) 161 H 148 H 143 H (70-110) mg/dL 04/01/23 04/01/23 04/01/23 Range/Units 21:08 22:20 23:09 RBC (3.80-5.40) m/uL Hgb (11.4-16.0) gm/dL Hct (34.0-46.0) % RDW (11.5-15.5) % Neutrophils # (1.3-7.7) k/uL APTT (22.0-30.0) sec ABG pCO2 (35-45) mmHg ABG HCO3 (21-25) mmol/L ABG Total CO2 (19-24) mmol/L Chloride (98-107) mmol/L Carbon Dioxide (22-30) mmol/L BUN (7-17) mg/dL Creatinine (0.52-1.04) mg/dL Glucose (74-99) mg/dL POC Glucose (mg/dL) 132 H 161 H 179 H (70-110) mg/dL 04/02/23 04/02/23 04/02/23 Range/Units 00:19 01:04 02:09 RBC (3.80-5.40) m/uL Hgb (11.4-16.0) gm/dL Hct (34.0-46.0) % RDW (11.5-15.5) % Neutrophils # (1.3-7.7) k/uL APTT (22.0-30.0) sec ABG pCO2 (35-45) mmHg ABG HCO3 (21-25) mmol/L ABG Total CO2 (19-24) mmol/L Chloride (98-107) mmol/L Carbon Dioxide (22-30) mmol/L BUN (7-17) mg/dL Creatinine (0.52-1.04) mg/dL Glucose (74-99) mg/dL POC Glucose (mg/dL) 180 H 193 H 196 H (70-110) mg/dL 04/02/23 04/02/23 04/02/23 Range/Units 03:04 04:13 05:05 RBC (3.80-5.40) m/uL Hgb (11.4-16.0) gm/dL Hct (34.0-46.0) % RDW (11.5-15.5) % Neutrophils # (1.3-7.7) k/uL APTT (22.0-30.0) sec ABG pCO2 (35-45) mmHg ABG HCO3 (21-25) mmol/L ABG Total CO2 (19-24) mmol/L Chloride (98-107) mmol/L Carbon Dioxide (22-30) mmol/L BUN (7-17) mg/dL Creatinine (0.52-1.04) mg/dL Glucose (74-99) mg/dL POC Glucose (mg/dL) 191 H 166 H 174 H (70-110) mg/dL 04/02/23 04/02/23 04/02/23 Range/Units 05:10 05:10 05:10 RBC 2.45 L (3.80-5.40) m/uL Hgb 7.2 L (11.4-16.0) gm/dL Hct 22.5 L (34.0-46.0) % RDW 16.0 H (11.5-15.5) % Neutrophils # 8.0 H (1.3-7.7) k/uL APTT 35.6 H (22.0-30.0) sec ABG pCO2 (35-45) mmHg ABG HCO3 (21-25) mmol/L ABG Total CO2 (19-24) mmol/L Chloride 110 H (98-107) mmol/L Carbon Dioxide 31 H (22-30) mmol/L BUN 53 H (7-17) mg/dL Creatinine 1.09 H (0.52-1.04) mg/dL Glucose 148 H (74-99) mg/dL POC Glucose (mg/dL) (70-110) mg/dL 04/02/23 04/02/23 04/02/23 Range/Units 05:40 05:55 06:53 RBC (3.80-5.40) m/uL Hgb (11.4-16.0) gm/dL Hct (34.0-46.0) % RDW (11.5-15.5) % Neutrophils # (1.3-7.7) k/uL APTT (22.0-30.0) sec ABG pCO2 51 H (35-45) mmHg ABG HCO3 30 H (21-25) mmol/L ABG Total CO2 32 H (19-24) mmol/L Chloride (98-107) mmol/L Carbon Dioxide (22-30) mmol/L BUN (7-17) mg/dL Creatinine (0.52-1.04) mg/dL Glucose (74-99) mg/dL POC Glucose (mg/dL) 169 H 159 H (70-110) mg/dL 04/02/23 04/02/23 Range/Units 08:47 10:51 RBC (3.80-5.40) m/uL Hgb (11.4-16.0) gm/dL Hct (34.0-46.0) % RDW (11.5-15.5) % Neutrophils # (1.3-7.7) k/uL APTT (22.0-30.0) sec ABG pCO2 (35-45) mmHg ABG HCO3 (21-25) mmol/L ABG Total CO2 (19-24) mmol/L Chloride (98-107) mmol/L Carbon Dioxide (22-30) mmol/L BUN (7-17) mg/dL Creatinine (0.52-1.04) mg/dL Glucose (74-99) mg/dL POC Glucose (mg/dL) 164 H 163 H (70-110) mg/dL Microbiology - Last 24 Hours (Table) 04/01/23 10:00 Fungal Culture - Preliminary Bronchial Washings - Left 04/01/23 10:00 Bronchial Washings Culture - Preliminary Bronchial Washings - Left 03/29/23 06:13 Blood Culture - Preliminary Blood Assessment and Plan Assessment: Impression: Acute hypoxic, and hypercapnic respiratory failure, exact etiology is not clear, but strongly suspect either pulmonary embolism or fat embolism as a complication from a right comminuted fracture status post repair postoperative day #5 Hypotension, likely hypovolemic in nature or could be related to pulmonary embolism. Acute blood loss anemia patient received a 3 units of packed RBCs so far, hemoglobin today is 7.2. Acute kidney injury, continues to improve steadily over the last few days , almost normal today. Acute lactic acidemia secondary to hypotension and hypoperfusion strongly doubt sepsis. Shock liver secondary to hypotension, resolved. History of previous right total knee replacement Morbid obesity History of obstructive sleep apnea syndrome History of bilateral meniscectomies Ex-smoker Left lower lobe atelectasis, possible pneumonia status post bronchoscopy postoperative day #1, cultures are pending Possible aspiration of feedings from nasogastric tube on 04/01/2023. Hence the patient will be empirically placed on Zosyn and discontinue Rocephin Recommendation: Continue ventilatory support Continue heparin for now although the venous Doppler is negative, will consider a CT angiogram in the next 24-48 hours Continue enteral feeding/nutritional support Continue GI and DVT prophylaxis Change Rocephin to Zosyn for now. Continue insulin infusion for now and maintain blood sugars noted to 150 up to 200 No plans to wean today mostly because the patient is now on high FiO2 and high PEEP and no sedation interruption to repeat Continue IV fluid at 50 mL per hour, trial of gentle diuresis today. Patient seems to be quite edematous. Patient remains critically ill. We will continue to follow. Critical care time is over 30 minutes Family was updated on her condition yesterday Overall prognosis remains guarded. Time with Patient: Greater than 30
[2023-04-02 13:29] LABS: Glucose,Whole Blood 174 mg/dL (70-110)
[2023-04-02] MEDS ORDERED: DEXTROSE 50% SYRINGE 50 ML IVP PRN ×2 (13:32)
--- NOTE | 2023-04-02 13:40 | P.PN ---
Progress Note - Text Progress Note Date: 04/02/23 - Chief Complaint Right leg injury History of presenting complaint: very pleasant 72-year-old patient of Dr. Persaud. Chronic stable medical conditions include diabetes, hyperlipidemia, hypertension, primary osteoarthritis, peripheral neuropathy, bilateral breast cancer with bilateral mastectomy, IBS, diverticulosis, chronic low back arthritis. Anxiety depression. Diagnosis of ulcerative colitis for about 15 years. On Asacol 800 mg 3 times a day. In November 2020 did undergo coloscopy by Dr. Moreno. Normal- appearing colon. Patient does follow with Dr. Angi Stallings. On an average has about 10 bowel movements a day. Present for years. Patient today was at the [facility]. Troponin went and fell down. Computed tomography scan showing a comminuted fracture distal metaphyseal femur adjacent to the knee processes. Some external rotation. Right lower extremity - brace. Patient's able to get about the house.. No chest pain or palpitation. March 27: Reclining bed. Pain control. Oral intake fair. Pending surgery tomorrow. Discussed with patient has would've the bedside. March 15: Patient seen by me this morning prior to surgery. In bed. Comfortable. Nothing by mouth. Pending surgery this afternoon. March 29: ICU. Yesterday patient underwent right revision total knee replacement the distal femoral replacement age for periprosthetic distal femur fracture. Estimated blood loss was about 600 mL. In the perioperative area patient blood pressure was running low. Patient was transferred to the ICU. Patient did receive 2 units of blood yesterday. Today patient is intubated. FiO2 85% and a PEEP of 10. Drips include we will affect, propofol, Nimbex. Patient started IV heparin for underlying suspicion of pulmonary embolism. Accu-Cheks running high has put on insulin drip. Oral gastric tube. Patient's and 2 daughters at the bedside. Discussed at length. Patient renal function also worsened. Hyperkalemia. Given bicarbonate. Being followed by supervisor orchard, nephrology. Another unit of blood pending. Hemoglobin this morning 6.7. Patient has increased right-sided heart pressures suspicious for therefore PE/fat embolism. March 30: ICU. Spiked a fever. Advair 250/50 5 and a PEEP of 8. On the ventilator. Sinus rhythm. Drips include Nimbex, propofol, IV heparin, IV insulin, IV norepinephrine. Right leg in a brace. IV ceftriaxone. March 31: ICU. On the ventilator. FiO2 45 PEEP of 5. 2 feeding at 30 mL an hour. Telemetry: Sinus rhythm. Drips include insulin, propofol, epinephrine, IV heparin. IV insulin. Cultures have been negative up to now. Remains in empirically on IV ceftriaxone. April 01: ICU. Patient underwent bronchoscopy by Dr. Babcock. 4 atelectasis on the chest x-ray. No rashes thick secretions removed from the left lower lobe. Likely mucous plugging. Currently on the ventilator with FiO2 100 a PEEP of 8. Sinus rhythm on the telemetry. Drips include IV levo fed, propofol, IV heparin, insulin. Having white secretions. IV ceftriaxone. Discussed with the patient's out of the bedside. Patient still remains critical. April 02: ICU. Overnight, last admin the nurse give medications through the OG tube medications came out through the mouth. 2 feeding was cutback. Started on a smaller rate. Remains on the ventilator. [place] to 65 and a PEEP of 12. Levo fed was discontinued yesterday afternoon. On propofol. IV heparin, IV insulin. Active Medications Hydrocodone Bitart/Acetaminophen (Hydrocodone/Apap 5-325mg 1 Each Tab) 1 each PO Q4HR PRN PRN Reason: Moderate Pain (Scale 4 to 6) Last Admin: 03/31/23 13:08 Dose: 1 each Albuterol/Ipratropium (Ipratropium-Albuterol 3 Ml Neb) 3 ml INHALATION RT-Q4H [facility] Last Admin: 04/02/23 11:26 Dose: 3 ml Aspirin (Aspirin 81 Mg) 81 mg PO BID [facility] Last Admin: 04/02/23 08:18 Dose: 81 mg Chlorhexidine Gluconate (Chlorhexidine Gluconate 15 Ml Cup) 15 ml MUCOUS MEM BID [facility] Last Admin: 04/02/23 08:18 Dose: 15 ml Dextrose/Water (Dextrose 50% Syringe 50 Ml) 25 ml IVP PER PROTOCOL PRN; Pr otocol PRN Reason: Hypoglycemia Dextrose/Water (Dextrose 50% Syringe 50 Ml) 50 ml IVP PER PROTOCOL PRN; Protocol PRN Reason: Hypoglycemia Ferrous Sulfate (Ferrous Sulfate 325 Mg Tab) 325 mg PO DAILY [facility] Last Admin: 04/02/23 08:18 Dose: 325 mg Fluoxetine HCl (Fluoxetine Hcl 20 Mg Cap) 40 mg PO DAILY [facility] Last Admin: 04/02/23 08:18 Dose: 40 mg Heparin Sodium (Porcine) (Heparin Sodium 1,000 Un/Ml (10ml Vl)) 0 unit IV PER PROTOCOL PRN; Protocol PRN Reason: Low PTT Last Admin: 04/02/23 06:27 Dose: 3,275 unit Hydromorphone HCl (Hydromorphone 0.5 Mg/0.5 Ml Syringe) 0.125 mg IVP Q3HR PRN PRN Reason: Pain Scale 1 to 3 Hydromorphone HCl (Hydromorphone 0.5 Mg/0.5 Ml Syringe) 0.5 mg IVP Q3HR PRN PRN Reason: Pain Scale 7 to 10 Last Admin: 04/02/23 06:58 Dose: 0.5 mg Hydromorphone HCl (Hydromorphone 0.5 Mg/0.5 Ml Syringe) 0.25 mg IVP Q3HR PRN PRN Reason: Pain Scale 4 to 6 Hydromorphone HCl (Hydromorphone 1 Mg/Ml 1 Ml Syringe) 1 mg IVP Q2HR PRN PRN Reason: Pain Last Admin: 04/02/23 07:48 Dose: 1 mg Propofol 1,000 mg/ IV Solution 100 mls @ 10.41 mls/hr IV .Q9H37M [facility]; Protocol Last Admin: 04/02/23 11:52 Dose: 50 mcg/kg/min, 34.7 mls/hr Heparin Sodium/Sodium Chloride (25,000 unit/ Sodium Chloride) 250 mls @ 10.005 mls/hr IV .Q24H [facility]; Protocol Last Titration: 04/02/23 06:29 Dose: 15.65 units/kg/hr, 18.102 mls/hr Norepinephrine Bitartrate 32 (mg/ Sodium Chloride) 250 mls @ 1.627 mls/hr IV .Q24H [facility]; Protocol Last Admin: 04/01/23 18:22 Dose: Not Given Sodium Chloride (Saline 0.9%) 1,000 mls @ 20 mls/hr IV .Q24H [facility] Last Admin: 04/02/23 06:01 Dose: 20 mls/hr Piperacillin Sod/Tazobactam (Sod 3.375 gm/ Sodium Chloride) 100 mls @ 25 mls/hr IVPB Q8HR [facility]; Protocol Last Admin: 04/02/23 10:40 Dose: 25 mls/hr Insulin Aspart (Insulin Aspart (Novolog) 100 Unit/Ml Vial) 0 unit SQ Q6H [facility]; Protocol Insulin Detemir (Insulin Detemir (Levemir) 100 Unit/Ml Syr) 40 unit SQ HS@1900 [facility] Insulin Human Regular (Insulin Regular 100 Unit/Ml Vial (Iv)) 6 unit IV ONCE ONE Stop: 04/02/23 14:01 Lorazepam (Lorazepam 0.5 Mg Tab) 0.5 mg PO Q6HR PRN PRN Reason: Anxiety Last Admin: 04/01/23 05:03 Dose: 0.5 mg Miscellaneous Information (Potassium Replacement Protocol 1 Each Misc) 1 each MISCELLANE DAILY PRN; Protocol PRN Reason: Per Protocol Naloxone HCl (Naloxone 0.4 Mg/Ml 1 Ml Vial) 0.2 mg IV Q2M PRN PRN Reason: Opioid Reversal Olanzapine (Olanzapine 5 Mg Tab) 5 mg PO HS [facility] Last Admin: 04/01/23 21:07 Dose: 5 mg Ondansetron HCl (Ondansetron 4 Mg/2 Ml Vial) 4 mg IVP Q8HR PRN PRN Reason: Nausea And Vomiting Pantoprazole Sodium (Pantoprazole 40 Mg/10 Ml Vial) 40 mg IV DAILY [facility] Last Admin: 04/02/23 08:18 Dose: 40 mg Senna/Docusate Sodium (Sennosides-Docusate Sodium 1 Each Tab) 2 each PO HS [facility] Last Admin: 04/01/23 20:46 Dose: 2 each Past medical history to include: Diabetes mellitus type 2, hyperlipidemia, hypertension, osteoarthritis, peripheral neuropathy, bilateral breast cancer with bilateral mastectomies, ulcerative colitis-colonoscopy has shown normal colon and biopsy was negative., diverticulosis, chronic low back pain and arthritis, anxiety depression. COVID- 19 Social history: . Smoked for 41 years stopped in 2005. No alcohol Physical examination: VITAL SIGNS: 98.2, 89, 32, 1:30/44, 95% on ventilator to 65% GENERAL: BMI 46.6, reclining intubated. OG tube EYES: Pupils equal. Conjunctiva normal. HEENT: External appearance of nose and ears normal, oral cavity OG tube NECK: JVD unable to assess; masses not palpable. HEART: First and second heart sounds are normal; no edema. LUNGS: Respiratory rate increased, decreased breath sounds ABDOMEN: Soft, nontender, liver spleen not palpable, no masses palpable. PSYCH: Unable to assess MUSCULAR skeletal: Evidence of OA especially in the hands . Right lower extremity in a brace INVESTIGATIONS, reviewed in the clinical context: April 02: Elderly Z 10.6 hemoglobin 7.2 platelets 244 potassium 4.9 BUN 53 creatinine 1.09 April 01: White count 16.9 hemoglobin 7.9 platelets 336 potassium 4.9 BUN 46 creatinine 1.20 AST 313 ALT 90 albumin 2.5 March 31: White count 15 hemoglobin 8.3 platelets 302 potassium 4.3 BUN 51 and creatinine 1.59 AST 963 ALT 141 pro calcitonin 1.91 March 30: White count 15.4 hemoglobin 8.8 platelets 298 potassium 3.6 BUN 53 creatinine 1.99 AST 1842 ALT 208 2-D echocardiogram: Moderate increased LVH. EF 50-55%. Severe right ventricle dilatation generalized right ventricle hypokinesis. Severe pulmonary hypertension. Moderate to severe tricuspid regurgitation. Ultrasound venous Doppler lower extremity: Limited views. No obvious DVT. Ultrasound kidney: Right kidney: Mild renal cortical thinning. Left kidney obscured. March 29: White count 20.6 hemoglobin 6.7 platelets 300 ABG: PH 7.13 pCO2 62. P otassium 5.1 BUN 40 creatinine 1.91 blood glucose 372 UA: Noted March 28: White count 9.1 hemoglobin 9.5 potassium 4.4 BUN 36 creatinine 1.37 White count 12.2 hemoglobin 11.5 platelets 510 sodium 140 potassium 4 BUN 34 creatinine 1.9 EKG tracing personally reviewed by me-normal sinus rhythm. Chest x-ray film personally reviewed by me-: Portable. No obvious infiltrate Knee x-ray/femur CT: Comminuted fracture distal metadiaphyseal femur adjacent to a knee processes. Displacement of the distal fracture fragment from the proximal fracture Assessment and plan: -Fall leading to acute Comminuted fracture distal metadiaphyseal femur adjacent to a knee processes. Displacement of the distal fracture fragment from the proximal fracture. March 28:right revision total knee replacement the distal femoral replacement age for periprosthetic distal femur fracture. By Dr. Stack. EBL 600 mL -Mucous plugging with left lower lobe atelectasis. Status post bronchoscopy and removal of sticks tenacious secretions. 04/01/2023 -Acute severe blood loss anemia from surgery Patient received 3 units of blood -Hyperkalemia from acute kidney injury: Better -IV heparin monitoring Follow PTT -Acute cor pulmonale with underlying suspicious for fat embolism/pulmonary embolism with acute right ventricle dilatation and moderate to severe TR. -Acute hypotensive shock from blood loss anemia.: Better Receive 3 units of blood. IV levo fed discontinued -Acute kidney injury likely cardiorenal syndrome/ATN. From hypotension and anemia.: Better Follow with nephrology. Admission creatinine was 1.29. Peaked at 2.43. Now down to 1.2 -COPD in an ex-smoker DuoNeb every 4 -Morbid obesity BMI 46.6 Weight loss measures -Diabetes mellitus type 2 on oral hypoglycemic,, chronically on insulin, uncontr olled with hyperglycemia Hold Actos. / Amaryl. Insulin drip -Hyperlipidemia Lipitor, TriCor -Anxiety not otherwise specified Klonopin 0.5 mg 3 times a day -Depression Zyprexa 5 mg daily at bedtime, Prozac 40 mg a day -Hyperuricemia Allopurinol -Essential hypertension, currently hypotensive -Acute hepatitis likely ischemic, improvement -Primary osteoarthritis Pain medications when necessary -Chronic kidney disease stage III from diabetic nephropathy and hypertensive nephrosclerosis Follow renal function ICU. Critically ill. Aspiration last night. We will stop insulin drip. Leve mina 40 units at night. Follow Accu-Cheks. IV Zosyn. Follow
[2023-04-02] MEDS: HEPARIN SOD,PORK IN 0.45% NACL 25,000 UNIT in 0.45% NACL 1 250ML.BAG IV SCH (13:58)
[2023-04-02] MEDS: NOREPINEPHRINE 32 MG in SODIUM CHLORIDE 0.9% 218 ML IV SCH (13:59)
[2023-04-02] MEDS ORDERED: INSULIN REGULAR 100 UNIT/ML VIAL (IV) IV ONE (14:00)
[2023-04-02 17:47] LABS: Glucose,Whole Blood 197 mg/dL (70-110)
[2023-04-02] MEDS: INSULIN ASPART (NovoLOG) 100 UNIT/ML VIAL SQ SCH (18:25)
[2023-04-02] MEDS ORDERED: INSULIN DETEMIR (LEVEMIR) 100 UNIT/ML SYR SQ SCH (19:00)
[2023-04-02] MEDS: SENNOSIDES-DOCUSATE SODIUM 1 EACH TAB PO SCH (20:33)
[2023-04-02] MEDS: OLANZapine 5 MG TAB PO SCH (20:33)
[2023-04-02 23:36] LABS: Glucose,Whole Blood 206 mg/dL (70-110)
[2023-04-03] MEDS: PIPERACILLIN-TAZOBACTAM 3.375 GM in SODIUM CHLORIDE 0.9% 100 ML IVPB SCH ×3 (00:27→16:16)
[2023-04-03] MEDS: HYDROmorphone 1 MG/ML 1 ML SYRINGE IVP PRN ×6 (00:28→16:15)
[2023-04-03] MEDS: INSULIN ASPART (NovoLOG) 100 UNIT/ML VIAL SQ SCH ×4 (00:28→18:23)
[2023-04-03] MEDS: IPRATROPIUM-ALBUTEROL 3 ML NEB INHALATION SCH ×6 (00:46→20:08)
[2023-04-03] MEDS: HEPARIN SOD,PORK IN 0.45% NACL 25,000 UNIT in 0.45% NACL 1 250ML.BAG IV SCH ×2 (03:06→17:17)
[2023-04-03] MEDS: SODIUM CHLORIDE 0.9% 1,000 ML IV SCH (05:07)
[2023-04-03 05:38] LABS: Anisocytosis Slight; HCT 23.8 % (34.0-46.0); HGB 7.4 gm/dL (11.4-16.0); Hypochromasia Slight; MCH 28.5 pg (25.0-35.0); MCV 91.9 fL (80.0-100.0); Platelet Count 146 k/uL (150-450); RBC 2.59 m/uL (3.80-5.40); RDW 17.1 % (11.5-15.5)
[2023-04-03 05:47] LABS: ABG Base Excess 5.6 mmol/L; ABG HCO3 30 mmol/L (21-25); ABG Oxygen Saturation 99.1 % (94-97); ABG PCO2 42 mmHg (35-45); ABG PH 7.45 (7.35-7.45); ABG PO2 108 mmHg (83-108); ABG TCO2 31 mmol/L (19-24); Allen Test Performed? Yes
[2023-04-03 05:56] LABS: Glucose,Whole Blood 209 mg/dL (70-110)
[2023-04-03 06:10] LABS: Albumin 2.6 g/dL (3.5-5.0); Calcium 10.2 mg/dL (8.4-10.2); Magnesium 2.2 mg/dL (1.6-2.3); Potassium 5.4 mmol/L (3.5-5.1)
--- NOTE | 2023-04-03 06:13 | XR ---
EXAMINATION TYPE: XR chest 1V portable DATE OF EXAM: 04/03/2023 CLINICAL HISTORY: Difficulty breathing progress study. TECHNIQUE: Single AP portable semiupright view of the chest is obtained. COMPARISON: Chest x-ray from one day earlier FINDINGS: Stable endotracheal and orogastric tubes. Stable left-sided subclavian central venous cath eter. Persistent mild cardiomegaly with mild central vascular congestion and retrocardiac consolidation noemy houetting left hemidiaphragm redemonstrated. Patchy right medial basal atelectasis and/or infiltrate redemonstrated. Osseous structures are intact. IMPRESSION: Cardiomegaly with mild central vascular congestion redemonstrated. Persistent right media l basilar acute infiltrate and/or atelectasis and more dense left basilar consolidation redemonstrate d. No significant change from one day earlier.
[2023-04-03 06:51] LABS: Band Neutrophils % 3 %; Eosinophils # (M) 0.44 k/uL (0-0.7); Metamyelocytes # (M) 0.11 k/uL (0); Metamyelocytes % 1 %; Myelocytes # (M) 0.22 k/uL (0); Myelocytes % 2 %; Neutrophils % (M) 74 %; Nucleated Red Blood Cells 2 /100 WBC (0-0); Total Cells Counted 200
[2023-04-03 06:52] LABS: Lymphocytes # (M) 1.09 k/uL (1.0-4.8); Monocytes # (M) 0.76 k/uL (0-1.0); WBC 10.9 k/uL (3.8-10.6)
[2023-04-03 06:54] LABS: Polychromasia Present
[2023-04-03] MEDS: PANTOPRAZOLE 40 MG/10 ML VIAL IV SCH (08:02)
[2023-04-03] MEDS: FLUoxetine HCL 20 MG CAP PO SCH (08:02)
[2023-04-03] MEDS: CHLORHEXIDINE GLUCONATE 15 ML CUP MUCOUS MEM SCH ×2 (08:03→20:34)
[2023-04-03] MEDS: ASPIRIN 81 MG PO SCH ×2 (08:03→20:34)
[2023-04-03] MEDS: FERROUS SULFATE 325 MG TAB PO SCH (08:03)
[2023-04-03] MEDS ORDERED: FUROSEMIDE 10 MG/ML 4 ML VIAL IV STA (08:47)
[2023-04-03] MEDS: NOREPINEPHRINE 32 MG in SODIUM CHLORIDE 0.9% 218 ML IV SCH (10:17)
--- NOTE | 2023-04-03 11:31 | OP ---
OPERATIVE REPORT DATE OF SERVICE : PROCEDURE PERFORMED: Placement of a left brachial arterial line. PREOPERATIVE DIAGNOSIS: Acute hypoxic respiratory failure, requiring intubation and mechanical ventilation. POSTOPERATIVE DIAGNOSIS: Acute hypoxic respiratory failure, requiring intubation and mechanical ventilation. ANESTHESIA USED: None deployed. PROCEDURE: The left brachial region was prepared in a sterile fashion. Drapes were applied. The left brachial artery was palpated, easily cannulated, a guidewire was placed. A Cook catheter was inserted over the guidewire, and the guidewire was removed. Good blood flow and waveform noted. The line was secured using 3-0 silk sutures. No complications. MMODL / IJN: [id number] /
--- NOTE | 2023-04-03 11:41 | P.PN ---
Subjective Progress Note Date: 04/03/23 Principal diagnosis: Acute hypoxic respiratory failure post repair of right comminuted fracture of distal femur adjacent to the knee prosthesis, postoperative day #6 I'm seeing this patient in new consultation today 03/29/2023 following a repair of a comminuted periprosthetic distal femur fracture. Patient is a 72-year-old white female with significant past medical history of previous right total knee replacement on 07/23/2022, diabetes mellitus, hypertension, obstructive sleep apnea, bilateral mastectomy for suspected breast cancer, and is an ex-smoker. Patient presented to the emergency room on 03/26/2023 after she tripped over a cord at the [facility], and landed on her right knee. A CT of the right femur without contrast showed a comminuted fracture of the distal metadiaphyseal femur adjacent to the knee prosthesis, and there was displacement of the distal fra cture fragment from the proximal fracture. She was admitted to the hospital, and taken to the operating room yesterday evening. Patient reportedly had stabilization of the distal femur fracture with revision of the right knee prosthesis. Intraoperatively, the patient became hypotensive requiring multiple fluid boluses with a total of 2.8 L of lactated Ringer's, 1 L albumin, and was subsequently started on a Woody-Synephrine infusion. Patient's hemoglobin level was reportedly 6.8 intraoperatively, and the patient received a total of 2 units PRBC. Patient was then transferred to the intensive care unit in critical condition. Patient is currently lying in bed, intubated to the mechanical ventilator. Initial ventilator settings were assist control, respiratory rate 14, tidal volume 350, FiO2 100%, PEEP of 5. ABGs done on these settings showed a pO2 of 108, pCO2 of 75, pH of 7.07. The patient's respiratory rate was increased to 20 and tidal volume to 400. Peak pressures are currently 31 and vital pressures are 18. Propofol infusing for sedation at 30 mcg/kg/m. Patient is synchronous mechanical ventilator. Postoperative chest x-ray shows endotracheal tube above the radha, cardiomegaly, and small left pleural effusion. So far, the patient is still hypotensive, and will be given an additional liter of normal saline. Patient was transitioned to Levophed, and is currently infusing at 0.28 mics per kilogram per minute. A left radial arterial line was inserted. There is a i ndwelling urinary catheter in place, with only about 10 ML's of urine since surgery. Patient does have a Hemovac from the right postsurgical knee draining small amount of sanguinous output. Patient does have a right knee immobilizer in place. There is postsurgical wound VAC in place. Dilaudid is on for analgesia. Postoperative CBC after 2 units PRBC transfusion shows a WBC count of 25, hemoglobin 9.1, hematocrit 28.7, platelets 405. BMP postoperatively shows a sodium 136, potassium 6.9, chloride 100, serum CO2 22, BUN 34, creatinine 1.74, glucose 232. LFTs are elevated with an AST of 1044 and ALT of 154. Patient's hyperkalemia will be treated with 10 units regular insulin, 1 amp D50 W, 1 g calcium gluconate, and albuterol. Lactic acid level is 4.2, and is receiving an additional liter of normal saline. Patient will be monitored in the intensive care unit. Reevaluated today on 03/30/2023, patient remains in the ICU, intubated and mechanically ventilated. Patient is now on assist control rate of 50 to tidal volume 420 FiO2 60% PEEP of 8. ABG showed a pO2 of 72 pCO2 55 pH of 7.31, hence I was able to increase the rate to 34 FiO2 cut down to 55% and The PEEP to 8. remains on propofol at 50 mcg/kg/m, norepinephrine 0.12 mcg/kg/m Nimbex at 0.5 mcg/kg/m insulin at 14 units an hour and she is on bicarb drip which I discontinued. I have also recommended stopping Nimbex and transitioning the patient to fentanyl instead. Again I'm planning to discontinue Nimbex today and discontinue bicarb. Renal functioning is a bit worse today compared to yesterday, creatinine is 2.43 and it was 2.37. Baseline is 1.29. Hence this prohibits us from performing a CT angiogram of the chest, and I'm recommending that we continue heparin. WBC count today is 14 hemoglobin is 8.8. Her PTT is therapeutic at 66.5. Liver enzymes are elevated with elevated AST of 3981 and elevated ALT of 375 which indicates that the patient may have a shocked liver. Chest x-ray showed small pleural effusion and small areas of left lower lobe atelectasis without pneumonia. Lower extremities Doppler is negative for DVT. Patient was evaluated today on 03/31/2023, remains in the ICU, intubated and mechanically ventilated. Patient is on assist control rate of 34 tidal volume 420 FiO2 45% PEEP of 8 ABG showed a pO2 of 95 pCO2 49 pH of 7.35 hence I made changes on the ventilator with going to rate 32, tidal volume increased to 450 FiO2 increased to 50% and repeat down to 5. Patient is still on multiple drips including insulin at 8.17 units an hour propofol at 14 mcg/kg/m norepinephrine at 0.11 mcg/kg/m fentanyl at 1 mcg/kg/h and she is receiving vital HPI 29 mL per hour. IV fluid is 0.9 at 50 mL per hour today I changed fentanyl to 0.5 mcg/kg/h and asked nursing staff to adjust the propofol up and down accordingly. We definitely like to assess mental status today off sedation if possible but will try to titrate propofol and set of titrating both, fentanyl and propofol at the same time. Chest x-ray continues to show left lower lobe atelectasis and small left pleural effusion. WBC count is 15 hemoglobin is 8.3, basic metabolic profile is normal, renal profile is improving with BUN down to 51 and creatinine of 1.59. We will continue IV fluid at 50 mL per hour patient is making good amount of urine on her own no need for diuretics at this point and no need to cut down significantly on the fluids at this point since the patient is not developing congestive heart failure and the findings on the chest x-ray are mostly findings of atelectasis and possibly small left-sided pleural effusion. Blood sugars are controlled with the insulin drip. Liver enzymes are improving AST is down to 963 from 184 to yesterday. And her ALT is down to 149 from 208 yesterday. Cultures of urine and blood and sputum are still negative so far patient remains on heparin and I have no plans to start the patient for a CT angiogram of the chest as long as renal profile seems to be abnormal. Patient was reevaluated today on 04/01/2023, remains in the ICU, intubated and mechanically ventilated. She is now on assist control rate of 32 tidal volume of 450 FiO2 45% and PEEP of 5 ABG showed a pO2 of 65 pCO2 43 pH of 7.34 hence FiO2 was increased to 50%. Chest x-ray showed atelectasis of the left lower lobe as the patient underwent bronchoscopy today, and suction some tenacious secretions in the left lower lobe bronchus. No evidence of any other significant findings. Fluid obtained was sent for diagnostic studies. Patient remains on propofol at 20 mcg/kg/m she is also on heparin drip for presumptive pulmonary embolism she is receiving insulin at 5.3 units per hour norepinephrine at low-dose, however this was discontinued once the patient woke up and evaluated off propofol. Patient remains on Rocephin empirically, cultures have been negative so far. Awaiting cultures from the BAL of the left lower lobe today. Obviously the patient is not quite ready for weaning off propofol she was noted to be tachypneic, tachycardic, and her blood pressure was as high as 200 systolic. Hence no further weaning to be done today. And her ventilator settings will be adjusted accordingly after bronchoscopy and BAL. Labs today were reviewed she has a bit of leukocytosis with WBC count of 16.9 her PTT is therapeutic at 45.7 and electrolytes are normal BUN is down to 46 creatinine is down to 1.20 will continue to monitor heparin for now and monitor her renal status, may eventually recommend CT angiogram of the chest to confirm whether the patient had thromboembolic disease/pulmonary embolism. Pro calcitonin level was 1.91, nonetheless patient remains on Rocephin. So far urine cultures and blood cultures and sputum cultures have been negative Patient was reevaluated today on 04/02/2023, remains in the ICU, intubated and mechanically ventilated. Patient had a bit of a setback last night, apparently there was some issues with the nasogastric tube, and it was felt that the patient may have aspirated some of her feedings from the nasogastric tube, hence this tube was removed and another tube was placed, follow-up chest x-ray showed adequate placement of the orogastric tube. In the meantime the patient desaturated and she required increase in her FiO2. She went up as high as 75% PEEP was increased to 8 and today I recommended increasing the PEEP to 12 and FiO2 down to 65%. And advised titration. Chest x-ray continues to show left lower lobe consolidation. Right side seems to be relatively clear. ABG this morning showed a pO2 of 84 pCO2 51 pH of 7.39. Patient is on propofol at 50 mcg/kg/m she is also on insulin at 4.25 units per hour vital HPI 29 mL/h she is off norepinephrine. Considering the aspiration situation I recommended that we change antibiotics to Zosyn cultures from the BAL of the left lower lobe are pending. Her vent settings changed to assist control rate of 32 tidal volume 450 FiO2 65% and PEEP of 12. WBC count is 10.6 hemoglobin is 7.2 PTT is 35.6, electrolytes are normal BUN is 53 creatinine 1.[address] angiogram of the chest in the next 24-48 hours in the meantime the patient seems to be tolerating heparin well Reevaluated today on 04/03/2023, patient remains in the ICU, intubated and mechanically ventilated. Her assist-control rate is 3 to tidal volume is 450 FiO2 60% and I cut down today to 50% PEEP is at 12. Patient remains on propofol at 50 mcg/kg/m remains on heparin drip, she is also on vital HPI 29 mL per hour. Antibiotics aguirre remains on Zosyn, cultures have been negative along. Even though washing from the BAL of the left lower lobe remains nondiagnostic. ABG showed a pO2 of 108 pCO2 42 pH of 7.45 hence FiO2 was cut down from 60% to 50%. Patient has been off sedation, she does not seem to be appropriate, she opens her eyes, but does not follow any instructions, she seems to be confused, and encephalopathic. Hence I initiated a neurological consultation, I believe the patient may have sustained fat embolism to explain her mental status. Would like to have a CT of the brain and CT of the chest, however the patient cannot lay flat, and she desaturates significantly upon laying flat, hence we'll hold on both for now. Her urine output is excellent and she was given more Lasix a day. Her pain seems to be under control and her blood pressure seems to respond well to Dilaudid every 2 hours as needed. Considering her ABG is marginal and considering that the patient is requiring relatively high PEEP I am not yet ready to extubate the patient also concerned about her mental status. WBC count is 10.9 hemoglobin is 7.4. PTT is 53.6. BUN is 56 creatinine is 1.07. Consid ering CT angiogram of the chest but because of her inability to lay flat and she desaturates easily him holding on the CT angiogram of the chest for now. Objective - Vital Signs Vital signs: Vital Signs Temp 99.4 F 04/03/23 08:00 Pulse 84 04/03/23 11:00 Resp 32 H 04/03/23 11:00 BP 160/63 04/03/23 00:45 Pulse Ox 96 04/03/23 11:00 FiO2 50 04/03/23 11:20 Intake & Output 04/02/23 04/03/23 04/03/23 18:59 06:59 18:59 Intake Total 3027.237 6815.420 517.292 Output Total 1625 1065 785 Balance -187.973 323.420 -267.708 Weight 134.9 kg Intake: IV 450 330 170 Piperacillin-Tazobactam 3 200 100 100 .375 gm In Sodium Chloride 0.9% 100 ml @ 25 mls/hr IVPB Q8HR [facility] Rx# :[id number] Sodium Chloride 0.9% 1, 200 230 70 000 ml @ 20 mls/hr IV . Q24H [facility] Rx#:[id number] cefTRIAXone 1 gm In 50 Sodium Chloride 0.9% 50 ml @ 100 mls/hr IVPB Q12HR [facility] Rx#:[id number] Intake, IV Titration 549.027 590.420 172.292 Amount Heparin Sod,Pork in 0.45% 121.854 237.74 NaCl 25,000 unit In 0.45 % NaCl 1 250ml.bag @ 8.65 UNITS/KG/HR 10.005 mls/ hr IV .Q24H [facility] Rx#: [id number] Insulin Regular 100 unit 45.050 In Sodium Chloride 0.9% 100 ml @ Titrate IV .Q0M [facility] Rx#:[id number] propofoL 1,000 mg In 382.123 352.680 172.292 Empty Bag 1 bag @ 15 MCG/ KG/MIN 10.41 mls/hr IV . Q9H37M [facility] Rx#:[id number] Tube Feeding 348 348 145 Other 90 120 30 Output: Urine 1625 1065 785 Other: Voiding Method Indwelling Catheter Indwelling Catheter Indwelling Catheter ABP, PAP, CO, CI - Last Documented Arterial Blood Pressure 145/47 - Exam Physical Exam: Revealed a 72-year-old female , intubated, sedated, not in distress. Head: Atraumatic, normocephalic. HEENT:[Neck is supple.] [No neck masses.] [No thyromegaly.] [No JVD.] Left subclavian central line is noted. Chest: [Fine crackles at the bases. Symmetrical chest expansion, no rhonchi no wheezes Cardiac Exam: [Normal S1 and S2, no S3 gallop, no murmur.] Abdomen: [Obese, Soft, nontender, no megaly, no rebound, no guarding, normal bowel sounds.] Extremities: [No clubbing, left knee is immobilized. 1+ to 2+ bipedal edema Neurological Exam: Patient is encephalopathic, opens eyes, does not follow any instructions, Psychiatric: Could not be assessed patient is sedated. - Labs CBC & Chem 7: 04/03/23 05:04/03/23 05:01 Labs: Abnormal Lab Results - Last 24 Hours (Table) 04/02/23 04/02/23 04/02/23 Range/Units 13:20 13:27 17:46 WBC (3.8-10.6) k/uL RBC (3.80-5.40) m/uL Hgb (11.4-16.0) gm/dL Hct (34.0-46.0) % RDW (11.5-15.5) % Plt Count (150-450) k/uL Neutrophils # (Manual) (1.3-7.7) k/uL Metamyelocytes # (Man) (0) k/uL Myelocytes # (Manual) (0) k/uL Nucleated RBCs (0-0) /100 WBC APTT 53.7 H (22.0-30.0) sec ABG HCO3 (21-25) mmol/L ABG Total CO2 (19-24) mmol/L ABG O2 Saturation (94-97) % Potassium (3.5-5.1) mmol/L Chloride (98-107) mmol/L BUN (7-17) mg/dL Creatinine (0.52-1.04) mg/dL Glucose (74-99) mg/dL POC Glucose (mg/dL) 174 H 197 H (70-110) mg/dL Albumin (3.5-5.0) g/dL 04/02/23 04/03/23 04/03/23 Range/Units 23:33 05:01 05:01 WBC 10.9 H (3.8-10.6) k/uL RBC 2.59 L (3.80-5.40) m/uL Hgb 7.4 L (11.4-16.0) gm/dL Hct 23.8 L (34.0-46.0) % RDW 17.1 H (11.5-15.5) % Plt Count 146 L (150-450) k/uL Neutrophils # (Manual) 8.30 H (1.3-7.7) k/uL Metamyelocytes # (Man) 0.11 H (0) k/uL Myelocytes # (Manual) 0.22 H (0) k/uL Nucleated RBCs 2 H (0-0) /100 WBC APTT (22.0-30.0) sec ABG HCO3 (21-25) mmol/L ABG Total CO2 (19-24) mmol/L ABG O2 Saturation (94-97) % Potassium 5.4 H (3.5-5.1) mmol/L Chloride 110 H (98-107) mmol/L BUN 56 H (7-17) mg/dL Creatinine 1.07 H (0.52-1.04) mg/dL Glucose 191 H (74-99) mg/dL POC Glucose (mg/dL) 206 H (70-110) mg/dL Albumin 2.6 L (3.5-5.0) g/dL 04/03/23 04/03/23 04/03/23 Range/Units 05:01 05:45 05:55 WBC (3.8-10.6) k/uL RBC (3.80-5.40) m/uL Hgb (11.4-16.0) gm/dL Hct (34.0-46.0) % RDW (11.5-15.5) % Plt Count (150-450) k/uL Neutrophils # (Manual) (1.3-7.7) k/uL Metamyelocytes # (Man) (0) k/uL Myelocytes # (Manual) (0) k/uL Nucleated RBCs (0-0) /100 WBC APTT 53.6 H (22.0-30.0) sec ABG HCO3 30 H (21-25) mmol/L ABG Total CO2 31 H (19-24) mmol/L ABG O2 Saturation 99.1 H (94-97) % Potassium (3.5-5.1) mmol/L Chloride (98-107) mmol/L BUN (7-17) mg/dL Creatinine (0.52-1.04) mg/dL Glucose (74-99) mg/dL POC Glucose (mg/dL) 209 H (70-110) mg/dL Albumin (3.5-5.0) g/dL Microbiology - Last 24 Hours (Table) 04/01/23 10:00 Gram Stain - Preliminary Bronchial Washings - Left Bronchial Washings Culture - Preliminary 03/29/23 06:13 Blood Culture - Preliminary Blood Assessment and Plan Assessment: Impression: Acute hypoxic, and hypercapnic respiratory failure, exact etiology is not clear, but strongly suspect either pulmonary embolism or fat embolism as a complication from a right comminuted fracture status post repair postoperative day #6 Hypotension, likely hypovolemic in nature or could be related to pulmonary embolism. Or even fat embolism. Acute blood loss anemia patient received a 3 units of packed RBCs so far, hemoglobin today is 7.2. Acute kidney injury, continues to improve steadily over the last few days , almost normal today. Acute lactic acidemia secondary to hypotension and hypoperfusion strongly doubt sepsis. Shock liver secondary to hypotension, resolved. History of previous right total knee replacement Morbid obesity History of obstructive sleep apnea syndrome History of bilateral meniscectomies Ex-smoker Left lower lobe atelectasis, possible pneumonia status post bronchoscopy postoperative day #2, cultures are pending Possible aspiration of feedings from nasogastric tube on 04/01/2023. Hence the patient will be empirically placed on Zosyn and replacing Rocephin. Mental status change could be acute toxic metabolic encephalopathy or could be related to fat embolism. Recommendation: Continue ventilatory support Continue heparin for now still considering CT angiogram of the chest however since the patient could not lay flat and she desaturates down to the 70s with laying flat I would hold on the CT angiogram of the chest for now. Continue enteral feeding/nutritional support Continue GI and DVT prophylaxis Continue Zosyn empirically check on cultures from the BAL Continue insulin infusion for now and maintain blood sugars noted to 150 up to 200 Patient is not ready for weaning from mechanical ventilation. Initiated a neurological consultation for mental status evaluation. Patient remains critically ill. Critical care time is over 30 minutes Prognosis remains poor and guarded. Overall prognosis remains guarded. Time with Patient: Greater than 30
--- NOTE | 2023-04-03 11:41 | P.PN ---
Subjective Patient is seen in follow-up for acute kidney injury on chronic kidney disease. Renal function improving. Potassium level 5.4 today. Nonoliguric. Intubated. Vital signs are stable. General: Resting in bed. HEENT: Intubated. LUNGS: Scattered rhonchi. HEART: Regular rate and rhythm. ABDOMEN: Soft, no distention. EXTREMITITES: 1+ edema. Objective - Vital Signs Vital signs: Vital Signs Temp 99.4 F 04/03/23 08:00 Pulse 84 04/03/23 11:00 Resp 32 H 04/03/23 11:00 BP 160/63 04/03/23 00:45 Pulse Ox 96 04/03/23 11:00 FiO2 50 04/03/23 11:20 Intake & Output 04/02/23 04/03/23 04/03/23 18:59 06:59 18:59 Intake Total 5071.857 4281.420 517.292 Output Total 1625 1065 785 Balance -187.973 323.420 -267.708 Weight 134.9 kg Intake: IV 450 330 170 Piperacillin-Tazobactam 3 200 100 100 .375 gm In Sodium Chloride 0.9% 100 ml @ 25 mls/hr IVPB Q8HR [facility] Rx# :[id number] Sodium Chloride 0.9% 1, 200 230 70 000 ml @ 20 mls/hr IV . Q24H [facility] Rx#:[id number] cefTRIAXone 1 gm In 50 Sodium Chloride 0.9% 50 ml @ 100 mls/hr IVPB Q12HR [facility] Rx#:[id number] Intake, IV Titration 549.027 590.420 172.292 Amount Heparin Sod,Pork in 0.45% 121.854 237.74 NaCl 25,000 unit In 0.45 % NaCl 1 250ml.bag @ 8.65 UNITS/KG/HR 10.005 mls/ hr IV .Q24H [facility] Rx#: [id number] Insulin Regular 100 unit 45.050 In Sodium Chloride 0.9% 100 ml @ Titrate IV .Q0M [facility] Rx#:[id number] propofoL 1,000 mg In 382.123 352.680 172.292 Empty Bag 1 bag @ 15 MCG/ KG/MIN 10.41 mls/hr IV . Q9H37M [facility] Rx#:[id number] Tube Feeding 348 348 145 Other 90 120 30 Output: Urine 1625 1065 785 Other: Voiding Method Indwelling Catheter Indwelling Catheter Indwelling Catheter ABP, PAP, CO, CI - Last Documented Arterial Blood Pressure 145/47 - Labs CBC & Chem 7: 04/03/23 05:01 04/03/23 05:01 Labs: Abnormal Lab Results - Last 24 Hours (Table) 04/02/23 04/02/23 04/02/23 Range/Units 13:20 13:27 17:46 WBC (3.8-10.6) k/uL RBC (3.80-5.40) m/uL Hgb (11.4-16.0) gm/dL Hct (34.0-46.0) % RDW (11.5-15.5) % Plt Count (150-450) k/uL Neutrophils # (Manual) (1.3-7.7) k/uL Metamyelocytes # (Man) (0) k/uL Myelocytes # (Manual) (0) k/uL Nucleated RBCs (0-0) /100 WBC APTT 53.7 H (22.0-30.0) sec ABG HCO3 (21-25) mmol/L ABG Total CO2 (19-24) mmol/L ABG O2 Saturation (94-97) % Potassium (3.5-5.1) mmol/L Chloride (98-107) mmol/L BUN (7-17) mg/dL Creatinine (0.52-1.04) mg/dL Glucose (74-99) mg/dL POC Glucose (mg/dL) 174 H 197 H (70-110) mg/dL Albumin (3.5-5.0) g/dL 04/02/23 04/03/23 04/03/23 Range/Units 23:33 05:01 05:01 WBC 10.9 H (3.8-10.6) k/uL RBC 2.59 L (3.80-5.40) m/uL Hgb 7.4 L (11.4-16.0) gm/dL Hct 23.8 L (34.0-46.0) % RDW 17.1 H (11.5-15.5) % Plt Count 146 L (150-450) k/uL Neutrophils # (Manual) 8.30 H (1.3-7.7) k/uL Metamyelocytes # (Man) 0.11 H (0) k/uL Myelocytes # (Manual) 0.22 H (0) k/uL Nucleated RBCs 2 H (0-0) /100 WBC APTT (22.0-30.0) sec ABG HCO3 (21-25) mmol/L ABG Total CO2 (19-24) mmol/L ABG O2 Saturation (94-97) % Potassium 5.4 H (3.5-5.1) mmol/L Chloride 110 H (98-107) mmol/L BUN 56 H (7-17) mg/dL Creatinine 1.07 H (0.52-1.04) mg/dL Glucose 191 H (74-99) mg/dL POC Glucose (mg/dL) 206 H (70-110) mg/dL Albumin 2.6 L (3.5-5.0) g/dL 04/03/23 04/03/23 04/03/23 Range/Units 05:01 05:45 05:55 WBC (3.8-10.6) k/uL RBC (3.80-5.40) m/uL Hgb (11.4-16.0) gm/dL Hct (34.0-46.0) % RDW (11.5-15.5) % Plt Count (150-450) k/uL Neutrophils # (Manual) (1.3-7.7) k/uL Metamyelocytes # (Man) (0) k/uL Myelocytes # (Manual) (0) k/uL Nucleated RBCs (0-0) /100 WBC APTT 53.6 H (22.0-30.0) sec ABG HCO3 30 H (21-25) mmol/L ABG Total CO2 31 H (19-24) mmol/L ABG O2 Saturation 99.1 H (94-97) % Potassium (3.5-5.1) mmol/L Chloride (98-107) mmol/L BUN (7-17) mg/dL Creatinine (0.52-1.04) mg/dL Glucose (74-99) mg/dL POC Glucose (mg/dL) 209 H (70-110) mg/dL Albumin (3.5-5.0) g/dL Microbiology - Last 24 Hours (Table) 04/01/23 10:00 Gram Stain - Preliminary Bronchial Washings - Left Bronchial Washings Culture - Preliminary 03/29/23 06:13 Blood Culture - Preliminary Blood Assessment and Plan Plan: Assessment: 1. Acute kidney injury secondary to hemodynamic ATN/shock. Creatinine 1.29 on admission and peaked at 2.43 this admission - 1.07 today. Nonoliguric. No hydronephrosis noted on kidney ultrasound. Left kidney not visualized. 2. Chronic kidney disease stage IIIa with baseline creatinine 1-1.2 secondary to nephrosclerosis/diabetic kidney disease. 3. History of hypercalcemia maintained on Sensipar. Sensipar held. Calcium level 10.2 with albumin 2.6 today. 4. Acute blood loss anemia status post blood transfusions this admission. Hemoglobin 7.4 today. 5. Hyperkalemia secondary to acute kidney injury, hyperglycemia, acidosis and acute blood loss. Improved with medical management. 5.4 today. 6. Status post knee revision 03/28/2023. 7. Diabetes mellitus. 8. Questionable PE with severe pulmonary hypertension and moderate to severe tricuspid regurgitation. On heparin drip. 9. Lower extremity edema. 10. Hypernatremia from lack of oral water intake and free water diuresis. Plan: Maintain tube feeds. Add water flushes 300 mL every 6 hours. Has received IV Lasix the last 2 days and received another dose this morning. Blood sugar control. Repeat potassium level this evening. Continue to monitor renal function and urine output. Avoid nephrotoxins. Resume Sensipar.
[2023-04-03] MEDS ORDERED: CINACALCET 30 MG TAB PO ONE (12:00)
[2023-04-03 12:01] LABS: Glucose,Whole Blood 194 mg/dL (70-110)
[2023-04-03] MEDS ORDERED: SODIUM ZIRCONIUM CYCLOSILICATE 10 GM PACKET PO ONE (13:00)
--- NOTE | 2023-04-03 13:38 | P.PN ---
Progress Note - Text Progress Note Date: 04/03/23 - Chief Complaint Right leg injury History of presenting complaint: very pleasant 72-year-old patient of Dr. Persaud. Chronic stable medical conditions include diabetes, hyperlipidemia, hypertension, primary osteoarthritis, peripheral neuropathy, bilateral breast cancer with bilateral mastectomy, IBS, diverticulosis, chronic low back arthritis. Anxiety depression. Diagnosis of ulcerative colitis for about 15 years. On Asacol 800 mg 3 times a day. In November 2020 did undergo coloscopy by Dr. Moreno. Normal- appearing colon. Patient does follow with Dr. Angi Stallings. On an average has about 10 bowel movements a day. Present for years. Patient today was at the [facility]. Troponin went and fell down. Computed tomography scan showing a comminuted fracture distal metaphyseal femur adjacent to the knee processes. Some external rotation. Right lower extremity - brace. Patient's able to get about the house.. No chest pain or palpitation. March 27: Reclining bed. Pain control. Oral intake fair. Pending surgery tomorrow. Discussed with patient has would've the bedside. March 15: Patient seen by me this morning prior to surgery. In bed. Comfortable. Nothing by mouth. Pending surgery this afternoon. March 29: ICU. Yesterday patient underwent right revision total knee replacement the distal femoral replacement age for periprosthetic distal femur fracture. Estimated blood loss was about 600 mL. In the perioperative area patient blood pressure was running low. Patient was transferred to the ICU. Patient did receive 2 units of blood yesterday. Today patient is intubated. FiO2 85% and a PEEP of 10. Drips include we will affect, propofol, Nimbex. Patient started IV heparin for underlying suspicion of pulmonary embolism. Accu-Cheks running high has put on insulin drip. Oral gastric tube. Patient's and 2 daughters at the bedside. Discussed at length. Patient renal function also worsened. Hyperkalemia. Given bicarbonate. Being followed by vice president of product marketing, nephrology. Another unit of blood pending. Hemoglobin this morning 6.7. Patient has increased right-sided heart pressures suspicious for therefore PE/fat embolism. March 30: ICU. Spiked a fever. Advair 250/50 5 and a PEEP of 8. On the ventilator. Sinus rhythm. Drips include Nimbex, propofol, IV heparin, IV insulin, IV norepinephrine. Right leg in a brace. IV ceftriaxone. March 31: ICU. On the ventilator. FiO2 45 PEEP of 5. 2 feeding at 30 mL an hour. Telemetry: Sinus rhythm. Drips include insulin, propofol, epinephrine, IV heparin. IV insulin. Cultures have been negative up to now. Remains in empirically on IV ceftriaxone. April 01: ICU. Patient underwent bronchoscopy by Dr. Babcock. 4 atelectasis on the chest x-ray. No rashes thick secretions removed from the left lower lobe. Likely mucous plugging. Currently on the ventilator with FiO2 100 a PEEP of 8. Sinus rhythm on the telemetry. Drips include IV levo fed, propofol, IV heparin, insulin. Having white secretions. IV ceftriaxone. Discussed with the patient's out of the bedside. Patient still remains critical. April 02: ICU. Overnight, last admin the nurse give medications through the OG tube medications came out through the mouth. 2 feeding was cutback. Started on a smaller rate. Remains on the ventilator. [place] to 65 and a PEEP of 12. Levo fed was discontinued yesterday afternoon. On propofol. IV heparin, IV insulin. April 03: ICU. Remains on the ventilator. FiO2 65 PEEP of 12. Patient is off propofol. Still remained lethargic. Neurology consulted. Also includes IV heparin drip. Family including father and 2 daughters at the bedside. G-tube feeding at goal. Discuss CODE STATUS with the family. Nurse called back later that they have decided to make the patient no code Active Medications Hydrocodone Bitart/Acetaminophen (Hydrocodone/Apap 5-325mg 1 Each Tab) 1 each PO Q4HR PRN PRN Reason: Moderate Pain (Scale 4 to 6) Last Admin: 03/31/23 13:08 Dose: 1 each Albuterol/Ipratropium (Ipratropium-Albuterol 3 Ml Neb) 3 ml INHALATION RT-Q4H [facility] Last Admin: 04/03/23 10:49 Dose: 3 ml Aspirin (Aspirin 81 Mg) 81 mg PO BID [facility] Last Admin: 04/03/23 08:03 Dose: 81 mg Chlorhexidine Gluconate (Chlorhexidine Gluconate 15 Ml Cup) 15 ml MUCOUS MEM BID [facility] Last Admin: 04/03/23 08:03 Dose: 15 ml Cinacalcet (Cinacalcet 30 Mg Tab) 30 mg PO MoTh@0900 [facility] Dextrose/Water (Dextrose 50% Syringe 50 Ml) 25 ml IVP PER PROTOCOL PRN; Protocol PRN Reason: Hypoglycemia Dextrose/Water (Dextrose 50% Syringe 50 Ml) 50 ml IVP PER PROTOCOL PRN; Protocol PRN Reason: Hypoglycemia Ferrous Sulfate (Ferrous Sulfate 325 Mg Tab) 325 mg PO DAILY [facility] Last Admin: 04/03/23 08:03 Dose: 325 mg Fluoxetine HCl (Fluoxetine Hcl 20 Mg Cap) 40 mg PO DAILY [facility] Last Admin: 04/03/23 08:02 Dose: 40 mg Heparin Sodium (Porcine) (Heparin Sodium 1,000 Un/Ml (10ml Vl)) 0 unit IV PER PROTOCOL PRN; Protocol PRN Reason: Low PTT Last Admin: 04/02/23 06:27 Dose: 3,275 unit Hydromorphone HCl (Hydromorphone 0.5 Mg/0.5 Ml Syringe) 0.125 mg IVP Q3HR PRN PRN Reason: Pain Scale 1 to 3 Hydromorphone HCl (Hydromorphone 0.5 Mg/0.5 Ml Syringe) 0.5 mg IVP Q3HR PRN PRN Reason: Pain Scale 7 to 10 Last Admin: 04/02/23 06:58 Dose: 0.5 mg Hydromorphone HCl (Hydromorphone 0.5 Mg/0.5 Ml Syringe) 0.25 mg IVP Q3HR PRN PRN Reason: Pain Scale 4 to 6 Hydromorphone HCl (Hydromorphone 1 Mg/Ml 1 Ml Syringe) 1 mg IVP Q2HR PRN PRN Reason: Pain Last Admin: 04/03/23 12:56 Dose: 1 mg Propofol 1,000 mg/ IV Solution 100 mls @ 10.41 mls/hr IV .Q9H37M [facility]; Protocol Last Admin: 04/03/23 11:19 Dose: 50 mcg/kg/min, 34.7 mls/hr Heparin Sodium/Sodium Chloride (25,000 unit/ Sodium Chloride) 250 mls @ 10.005 mls/hr IV .Q24H [facility]; Protocol Last Admin: 04/03/23 03:06 Dose: 15.65 units/kg/hr, 18.102 mls/hr Norepinephrine Bitartrate 32 (mg/ Sodium Chloride) 250 mls @ 1.627 mls/hr IV .Q24H [facility]; Protocol Last Admin: 04/03/23 10:17 Dose: Not Given Sodium Chloride (Saline 0.9%) 1,000 mls @ 20 mls/hr IV .Q24H [facility] Last Admin: 04/03/23 05:07 Dose: 20 mls/hr Piperacillin Sod/Tazobactam (Sod 3.375 gm/ Sodium Chloride) 100 mls @ 25 mls/hr IVPB Q8HR [facility]; Protocol Last Admin: 04/03/23 08:02 Dose: 25 mls/hr Insulin Aspart (Insulin Aspart (Novolog) 100 Unit/Ml Vial) 0 unit SQ Q6H [facility]; Protocol Last Admin: 04/03/23 12:07 Dose: 3 unit Insulin Detemir (Insulin Detemir (Levemir) 100 Unit/Ml Syr) 40 unit SQ HS@1900 [facility] Last Admin: 04/02/23 18:21 Dose: 40 unit Lorazepam (Lorazepam 0.5 Mg Tab) 0.5 mg PO Q6HR PRN PRN Reason: Anxiety Last Admin: 04/01/23 05:03 Dose: 0.5 mg Miscellaneous Information (Potassium Replacement Protocol 1 Each Misc) 1 each MISCELLANE DAILY PRN; Protocol PRN Reason: Per Protocol Naloxone HCl (Naloxone 0.4 Mg/Ml 1 Ml Vial) 0.2 mg IV Q2M PRN PRN Reason: Opioid Reversal Olanzapine (Olanzapine 5 Mg Tab) 5 mg PO HS [facility] Last Admin: 04/02/23 20:33 Dose: 5 mg Ondansetron HCl (Ondansetron 4 Mg/2 Ml Vial) 4 mg IVP Q8HR PRN PRN Reason: Nausea And Vomiting Pantoprazole Sodium (Pantoprazole 40 Mg/10 Ml Vial) 40 mg IV DAILY [facility] Last Admin: 04/03/23 08:02 Dose: 40 mg Senna/Docusate Sodium (Sennosides-Docusate Sodium 1 Each Tab) 2 each PO HS [facility] Last Admin: 04/02/23 20:33 Dose: 2 each Past medical history to include: Diabetes mellitus type 2, hyperlipidemia, hypertension, osteoarthritis, peripheral neuropathy, bilateral breast cancer with bilateral mastectomies, ulcerative colitis-colonoscopy has shown normal colon and biopsy was negative., diverticulosis, chronic low back pain and arthritis, anxiety depression. COVID- 19 Social history: . Smoked for 41 years stopped in 2005. No alcohol Physical examination: VITAL SIGNS: 99.5, 89, 32, 150/47, 96% on the ventilator GENERAL: BMI 46.6, reclining intubated. OG tube EYES: Pupils equal. Conjunctiva normal. HEENT: External appearance of nose and ears normal, oral cavity OG tube NECK: JVD unable to assess; masses not palpable. HEART: First and second heart sounds are normal; edema present LUNGS: Respiratory rate increased, decreased breath sounds ABDOMEN: Soft, nontender, liver spleen not palpable, no masses palpable. PSYCH: Unable to assess MUSCULAR skeletal: Evidence of OA especially in the hands . Right lower extremity in a brace INVESTIGATIONS, reviewed in the clinical context: April 03: White count 10.9 hemoglobin 7.4 platelets 146 potassium 5.4 BUN 56 creatinine 1.07 April 02: Elderly Z 10.6 hemoglobin 7.2 platelets 244 potassium 4.9 BUN 53 creatinine 1.09 April 01: White count 16.9 hemoglobin 7.9 platelets 336 potassium 4.9 BUN 46 creatinine 1.20 AST 313 ALT 90 albumin 2.5 March 31: White count 15 hemoglobin 8.3 platelets 302 potassium 4.3 BUN 51 and creatinine 1.59 AST 963 ALT 141 pro calcitonin 1.91 March 30: White count 15.4 hemoglobin 8.8 platelets 298 potassium 3.6 BUN 53 creatinine 1.99 AST 1842 ALT 208 2-D echocardiogram: Moderate increased LVH. EF 50-55%. Severe right ventricle dilatation generalized right ventricle hypokinesis. Severe pulmonary hy pertension. Moderate to severe tricuspid regurgitation. Ultrasound venous Doppler lower extremity: Limited views. No obvious DVT. Ultrasound kidney: Right kidney: Mild renal cortical thinning. Left kidney obscured. March 29: White count 20.6 hemoglobin 6.7 platelets 300 ABG: PH 7.13 pCO2 62. Potassium 5.1 BUN 40 creatinine 1.91 blood glucose 372 UA: Noted March 28: White count 9.1 hemoglobin 9.5 potassium 4.4 BUN 36 creatinine 1.37 White count 12.2 hemoglobin 11.5 platelets 510 sodium 140 potassium 4 BUN 34 creatinine 1.9 EKG tracing personally reviewed by me-normal sinus rhythm. Chest x-ray film personally reviewed by me-: Portable. No obvious infiltrate Knee x-ray/femur CT: Comminuted fracture distal metadiaphyseal femur adjacent to a knee processes. Displacement of the distal fracture fragment from the proximal fracture Assessment and plan: -Fall leading to acute Comminuted fracture distal metadiaphyseal femur adjacent to a knee processes. Displacement of the distal fracture fragment from the proximal fracture. March 28:right revision total knee replacement the distal femoral replacement age for periprosthetic distal femur fracture. By Dr. Stack. EBL 600 mL -Metabolic/anoxic encephalopathy. Rule out other causation. Neurology consulted -Mucous plugging with left lower lobe atelectasis. Status post bronchoscopy and removal of sticks tenacious secretions. 04/01/2023 -Acute severe blood loss anemia from surgery Patient received 3 units of blood -Hyperkalemia from acute kidney injury: Better -IV heparin monitoring Follow PTT -Acute cor pulmonale with underlying suspicious for fat embolism/pulmonary embolism with acute right ventricle dilatation and moderate to severe TR. -Acute hypotensive shock from blood loss anemia.: Better Receive 3 units of blood. IV levo fed discontinued -Acute kidney injury likely cardiorenal syndrome/ATN. From hypotension and anemia.: Better Follow with nephrology. Admission creatinine was 1.29. Peaked at 2.43. Fredi sewell better -COPD in an ex-smoker DuoNeb every 4 -Morbid obesity BMI 46.6 Weight loss measures -Diabetes mellitus type 2 on oral hypoglycemic,, chronically on insulin, uncontrolled with hyperglycemia Hold Actos. / Amaryl. Increase Levemir to 48 units at night -Hyperlipidemia Lipitor, TriCor -Anxiety not otherwise specified Klonopin 0.5 mg 3 times a day -Depression Zyprexa 5 mg daily at bedtime, Prozac 40 mg a day -Hyperuricemia Allopurinol -Essential hypertension, currently hypotensive -Acute hepatitis likely ischemic, improvement -Primary osteoarthritis Pain medications when necessary -Chronic kidney disease stage III from diabetic nephropathy and hypertensive nephrosclerosis Follow renal function -DO NOT RESUSCITATE ICU. Critically ill. Levemir 40 units at night. Neurology consulted.. IV Zosyn. Crease Levemir to 48 units at night. Patient now stable for CT brain. Advance care planning: Discussed with the patient's , 2 daughters at the bedside. Lengthy discussion. Clinical condition patient's status before the surgery discussed. Quality of life discussed. Pros and cons discussed. Late on nurse called me back that they have decided to proceed to the DO NOT RESUSCITATE status. Time spent for advance care planning 25 minutes
--- NOTE | 2023-04-03 14:30 | P.CNNES ---
History of Present Illness Consult date: 04/03/23 Requesting physician: Dolores Ross Reason for Consult: Altered mental status History of Present Illness: Patient is a 72-year-old female came to the hospital by ambulance 03/26/2023 after she suffered from a fall at the [employer]. Her took her to the [facility] last Tuesday. When she got up, her foot got caught in the cord and she fell, breaking her right femur. Patient had undergone right knee replacem ent last fall. Patient underwent placement of titanium bree in the right leg on 03/28/2023 at around 5 PM. Apparently during the surgery, patient became hypotensive requiring fluids, blood transfusion, also placed on Levophed. Patient will became very unstable. PE versus fat embolism was suspected. However patient has been very unstable, not able to have CTA of the chest performed to confirm or rule out. Patient was on Levophed from Tuesday until Tuesday it was discontinued. At one point she was also on Nimbex. Patient has developed aspiration pneumonia also during hospitalization. Patient's blood pressures WBC 10.9 hemoglobin 7.4, platelets 146. PTT 53.6, ABG with pH of 7.45, pCO2 42, pO2 108. Sodium is normal potassium 5.4, BUN 56, creatinine 1.07, overall renal functions are improving. Hemoglobin A1c 5.8, 2-D echo showed left ventricle size and systolic functions are fairly well preserved. Right ventricle is significantly enlarged, there is severe pulmonary hypertension. Mitral annular calcification with mild mitral regurgitation. Moderate to severe ER. Aortic valve appears normal with mild sclerosis. No pericardial effusion. Ultrasound of the lower extremities was limited, unable to visualize due to body habitus. Per patient's and daughter's report, on 04/01/2023, when the sedation is turned off, patient was wiggling her toes, blinking her eyes, shaking her head appropriately and wiggled her fingers and was able to squeeze her hands on command. When the family asked if she remembered falling, she nodded yes. At present patient is very unstable, not able to lay flat, and when the sedation is decreased, patient having blood pressure goes up to 260 systolic and she starts desaturating and becomes very tachypneic. Patient has history of smoking 1/2 to 3/4 pack per day for 30 years, quit 18 years ago. She also has history of heavy drinking, quit drinking 18 years ago. Her baseline as reported by patient's and daughter is that she walks slow, does not use any cane or a walker. She shuffles during walking. Review of Systems Discussed with patient's , patient's daughter and patient's nurse, did not offer any other review of systems. ROS unobtainable: due to endotracheal tube, due to mental status Past Medical History Past Medical History: Diabetes Mellitus, Hypertension, Osteoarthritis (OA), Pneumonia, Sleep Apnea/CPAP/BIPAP Additional Past Medical History / Comment(s): covid 10/14/20-10/21/20, hypercalcemia, bilateral mastectomy but told after it was not cancer, colitis, varicose veins, "irregular urination" History of Any Multi-Drug Resistant Organisms: None Reported Past Surgical History: Breast Surgery, Hysterectomy, Joint Replacement, Tonsillectomy Additional Past Surgical History / Comment(s): Bilateral mastectomies, total L and R knee arthroplasty, colonoscopies, bilateral cataract removals/lens implants. right knee replacement 07/23/22 Past Anesthesia/Blood Transfusion Reactions: Motion Sickness Past Psychological History: Anxiety, Depression Additional Psychological History / Comment(s): . Smoking Status: Former smoker Past Alcohol Use History: None Reported Additional Past Alcohol Use History / Comment(s): Pt atarted smoking in 1964 and quit in 2005. Past Drug Use History: None Reported - Past Family History Sister(s) Family Medical History: Myocardial Infarction ([place]) Additional Family Medical History / Comment(s): TWO SISTERS HAD AN [place] Father Family Medical History: Cancer Additional Family Medical History / Comment(s): Father of stomach cancer. Mother Family Medical History: Cancer Additional Family Medical History / Comment(s): . Medications and Allergies Home Medications Medication Instructions Recorded Confirmed Type FLUoxetine HCL [PROzac] 40 mg PO DAILY 05/03/14 03/26/23 History Fenofibrate Nanocrystallized 145 mg PO DAILY 05/03/14 03/26/23 History [Tricor] OLANZapine [ZyPREXA] 5 mg PO HS 05/03/14 03/26/23 History clonazePAM [KlonoPIN] 0.5 mg PO TID 05/03/14 03/26/23 History allopurinoL [Zyloprim] 100 mg PO DAILY 10/13/20 03/26/23 History Metoprolol Succinate (ER) [Toprol 25 mg PO DAILY 12/10/20 03/26/23 History XL] Atorvastatin [Lipitor] 10 mg PO DAILY 06/11/22 03/26/23 History Multivit with Calcium,Iron,Min 1 tab PO DAILY 06/11/22 03/26/23 History [Women's Multivitamin] Pioglitazone [Actos] 15 mg PO DAILY 06/11/22 03/26/23 History Cinacalcet [Sensipar] 30 mg PO MOTH 03/26/23 03/26/23 History Ferrous Sulfate [Feosol] 325 mg PO DAILY 03/26/23 03/26/23 History Glimepiride [Amaryl] 2 mg PO DAILY 03/26/23 03/26/23 History Insulin Glargine,Hum.rec.anlog 56 units SQ HS 03/26/23 03/26/23 History [Lantus Solostar Pen] Magnesium Oxide [Mag-Ox] 400 mg PO DAILY 03/26/23 03/26/23 History Mesalamine [Mesalamine Dr] 800 mg PO TID 03/26/23 03/26/23 History Allergies Allergy/AdvReac Type Severity Reaction Status Date / Time No Known Allergies Allergy Verified 03/28/23 17:41 Physical Examination - Vital Signs Vital Signs: Vital Signs Temp Pulse Resp BP Pulse Ox FiO2 04/03/23 11:20 50 04/03/23 11:00 89 32 H 96 04/03/23 10:49 88 04/03/23 10:46 50 04/03/23 10:45 87 32 H 95 04/03/23 10:30 84 32 H 95 04/03/23 10:15 83 32 H 95 04/03/23 10:00 84 32 H 94 L 04/03/23 09:45 87 32 H 94 L 04/03/23 09:30 89 32 H 94 L 04/03/23 09:15 93 32 H 93 L 04/03/23 09:00 87 32 H 91 L 04/03/23 08:59 50 04/03/23 08:45 85 32 H 92 L 04/03/23 08:30 85 33 H 94 L 04/03/23 08:17 80 04/03/23 08:15 82 32 H 96 04/03/23 08:07 83 04/03/23 08:02 60 04/03/23 08:00 99.4 F 84 32 H 96 60 04/03/23 07:45 78 32 H 96 04/03/23 07:30 77 32 H 95 04/03/23 07:15 74 32 H 96 04/03/23 07:00 74 32 H 97 04/03/23 06:45 75 32 H 96 04/03/23 06:30 74 32 H 97 04/03/23 06:15 76 32 H 97 04/03/23 06:00 78 32 H 97 04/03/23 05:45 80 32 H 99 04/03/23 05:30 81 32 H 96 04/03/23 05:15 80 32 H 98 04/03/23 05:00 78 32 H 96 04/03/23 04:50 77 04/03/23 04:45 77 32 H 96 60 04/03/23 04:30 76 32 H 96 04/03/23 04:15 75 32 H 95 04/03/23 04:00 99.3 F 75 32 H 98 60 04/03/23 03:45 76 32 H 98 04/03/23 03:30 76 32 H 97 04/03/23 03:15 78 32 H 97 04/03/23 03:00 82 32 H 97 04/03/23 02:45 83 32 H 98 04/03/23 02:30 83 32 H 97 04/03/23 02:15 82 32 H 97 04/03/23 02:00 82 32 H 97 04/03/23 01:45 80 10 L 97 04/03/23 01:30 81 32 H 97 04/03/23 01:15 82 32 H 98 04/03/23 01:06 87 04/03/23 01:00 82 32 H 98 04/03/23 00:50 80 05 00:45 78 32 H 98 04/03/23 00:40 60 04/03/23 00:30 79 32 H 99 04/03/23 00:15 79 32 H 99 04/03/23 00:00 99.2 F 81 32 H 98 60 04/02/23 23:45 78 32 H 99 05 23:30 78 32 H 99 05 23:15 78 32 H 99 05 23:02 77 32 H 99 05 23:00 77 32 H 149/61 99 0520 22:45 79 32 H 99 05 22:30 79 32 H 99 05 22:15 81 32 H 99 05 22:00 81 32 H 99 05 21:45 82 32 H 99 05 21:30 83 32 H 99 0520 21:15 84 32 H 152/69 98 0520 21:00 84 32 H 99 05 20:45 80 32 H 96 0520 20:40 81 05/20 20:30 82 32 H 95 0520 20:26 60 0520 20:20 60 0520 20:15 81 32 H 131/56 97 0520 20:00 98.9 F 79 32 H 99 60 05 19:45 80 32 H 99 05 19:30 84 32 H 98 0520 19:15 80 32 H 99 05 19:00 79 32 H 98 0520 18:45 80 32 H 98 0520 18:30 80 32 H 99 05 18:15 81 32 H 98 05 18:00 81 32 H 97 05 17:45 84 32 H 97 05 17:30 86 32 H 100 0520 17:15 87 32 H 99 05 17:00 90 32 H 97 0520 16:45 90 32 H 96 052023 16:30 99.2 F 88 32 H 97 65 05/20/23 16:15 89 32 H 148/58 98 05/20/ 16:00 86 32 H 129/57 98 65 0520 15:45 84 32 H 97 0520 15:31 88 05/20 15:30 83 32 H 96 0520 15:25 84 05/2023 15:15 83 32 H 129/57 96 05/20 15:00 86 32 H 141/51 95 65 05/20 14:45 88 32 H 95 05/20/23 14:30 86 32 H 95 04/02/23 14:15 79 32 H 95 04/02/23 14:00 79 32 H 96 04/02/23 13:45 81 32 H 96 04/02/23 13:30 84 32 H 96 04/02/23 13:15 81 32 H 97 04/02/23 13:00 85 32 H 96 04/02/23 12:45 85 32 H 97 04/02/23 12:30 86 32 H 96 04/02/23 12:15 89 32 H 95 04/02/23 12:00 98.2 F 89 32 H 95 65 04/02/23 11:45 86 32 H 93 L 04/02/23 11:39 65 04/02/23 11:38 65 04/02/23 11:33 90 04/02/23 11:30 88 32 H 93 L 04/02/23 11:27 88 Intake and Output 04/02/23 04/03/23 04/03/23 22:59 06:59 14:59 Intake Total 762 1042.420 517.292 Output Total 690 720 785 Balance 72 322.420 -267.708 Intake: IV 240 260 170 Piperacillin-Tazobactam 3 100 100 100 .375 gm In Sodium Chloride 0.9% 100 ml @ 25 mls/hr IVPB Q8HR NENTIA Rx# :[id number] Sodium Chloride 0.9% 1, 140 160 70 000 ml @ 20 mls/hr IV . Q24H NENITA Rx#:[id number] Intake, IV Titration 200 490.420 172.292 Amount Heparin Sod,Pork in 0.45% 237.74 NaCl 25,000 unit In 0.45 % NaCl 1 250ml.bag @ 8.65 UNITS/KG/HR 10.005 mls/ hr IV .Q24H NENITA Rx#: [id number] propofoL 1,000 mg In 200 252.680 172.292 Empty Bag 1 bag @ 15 MCG/ KG/MIN 10.41 mls/hr IV . Q9H37M NENITA Rx#:[id number] Tube Feeding 232 232 145 Other 90 60 30 Output: Urine 690 720 785 Other: Voiding Method Indwelling Catheter Indwelling Catheter Indwelling Catheter Weight 134.9 kg ABP, PAP, CO, CI - Last 8 Hours Arterial Blood Pressure 145/47 Arterial Blood Pressure 138/46 Arterial Blood Pressure 117/44 Arterial Blood Pressure 115/41 Arterial Blood Pressure 104/40 Arterial Blood Pressure 114/41 Arterial Blood Pressure 109/39 Arterial Blood Pressure 192/67 Arterial Blood Pressure 172/66 Arterial Blood Pressure 157/53 Arterial Blood Pressure 155/52 Arterial Blood Pressure 163/55 Arterial Blood Pressure 145/50 Arterial Blood Pressure 143/50 Arterial Blood Pressure 134/48 Arterial Blood Pressure 128/47 Arterial Blood Pressure 124/47 Arterial Blood Pressure 120/46 Arterial Blood Pressure 120/46 Arterial Blood Pressure 123/47 Arterial Blood Pressure 156/53 Arterial Blood Pressure 154/53 Arterial Blood Pressure 147/52 Arterial Blood Pressure 137/50 Arterial Blood Pressure 136/50 Arterial Blood Pressure 124/47 Arterial Blood Pressure 113/44 Patient is an elderly female, who is intubated, sedated on propofol 50 mcg/kg/m. Patient is sedated. However she does open her eyes to calling her name loudly. Oculocephalics are absent. Corneals present. On cranial nerve examination, pupils are equal, round and reacting to light, gaze is midline. Visual sanchez could not be tested. Patient does breathe over the ventilator, has good gag and cough. Other cranial nerves cannot be a ssessed. On muscle strength testing, patient is not following any directions, no commands. She did not begin her fingers, or toes. Deep tendon reflexes are almost absent. Sensory to touch cannot be assessed because of her mental status. Cerebellar functions and gait cannot be assessed. On general examination, there is no carotid bruit or murmur, S1-S2 audible. Chest is clear on consultation. Abdomen is soft nontender. No organomegaly, bowel sounds present. Patient has significant peripheral edema all over. Results - Laboratory Findings CBC and BMP: 04/03/23 05:01 04/03/23 17:00 Abnormal Lab Findings: Abnormal Labs 03/26/23 03/26/23 03/26/23 10:18 10:18 10:18 WBC 12.2 H RBC Hgb Hct RDW Plt Count 510 H Neutrophils # 9.3 H Neutrophils # (Manual) Monocytes # Metamyelocytes # (Man) Myelocytes # (Manual) Nucleated RBCs PT INR APTT ABG pH ABG pCO2 ABG pO2 ABG HCO3 ABG Total CO2 ABG O2 Saturation ABG Lactic Acid Sodium Potassium Chloride Carbon Dioxide BUN 34 H Creatinine 1.29 H Glucose 136 H POC Glucose (mg/dL) Hemoglobin A1c 6.1 H Plasma Lactic Acid Syd Calcium Total Bilirubin AST ALT Troponin I Total Protein Albumin Procalcitonin TSH Urine Appearance Urine Protein Urine Blood Ur Leukocyte Esterase Urine RBC Urine WBC Amorphous Sediment Urine Bacteria Urine Mucus Crossmatch 03/26/23 03/26/23 03/26/23 10:20 13:27 17:55 WBC RBC Hgb Hct RDW Plt Count Neutrophils # Neutrophils # (Manual) Monocytes # Metamyelocytes # (Man) Myelocytes # (Manual) Nucleated RBCs PT INR APTT ABG pH ABG pCO2 ABG pO2 ABG HCO3 ABG Total CO2 ABG O2 Saturation ABG Lactic Acid Sodium Potassium Chloride Carbon Dioxide BUN Creatinine Glucose POC Glucose (mg/dL) 134 H 157 H Hemoglobin A1c Plasma Lactic Acid Syd Calcium Total Bilirubin AST ALT Troponin I Total Protein Albumin Procalcitonin TSH Urine Appearance Urine Protein Urine Blood Ur Leukocyte Esterase Urine RBC Urine WBC Amorphous Sediment Urine Bacteria Urine Mucus Crossmatch See Detail 03/27/23 03/27/23 03/27/23 06:09 12:45 17:07 WBC RBC Hgb Hct RDW Plt Count Neutrophils # Neutrophils # (Manual) Monocytes # Metamyelocytes # (Man) Myelocytes # (Manual) Nucleated RBCs PT INR APTT ABG pH ABG pCO2 ABG pO2 ABG HCO3 ABG Total CO2 ABG O2 Saturation ABG Lactic Acid Sodium Potassium Chloride Carbon Dioxide BUN Creatinine Glucose POC Glucose (mg/dL) 66 L 180 H 178 H Hemoglobin A1c Plasma Lactic Acid Syd Calcium Total Bilirubin AST ALT Troponin I Total Protein Albumin Procalcitonin TSH Urine Appearance Urine Protein Urine Blood Ur Leukocyte Esterase Urine RBC Urine WBC Amorphous Sediment Urine Bacteria Urine Mucus Crossmatch 03/27/23 03/28/23 03/28/23 21:05 06:04 06:04 WBC RBC 3.29 L Hgb 9.5 L D Hct 29.5 L RDW Plt Count Neutrophils # Neutrophils # (Manual) Monocytes # Metamyelocytes # (Man) Myelocytes # (Manual) Nucleated RBCs PT INR APTT ABG pH ABG pCO2 ABG pO2 ABG HCO3 ABG Total CO2 ABG O2 Saturation ABG Lactic Acid Sodium Potassium Chloride Carbon Dioxide BUN 36 H Creatinine 1.37 H Glucose 129 H POC Glucose (mg/dL) 277 H Hemoglobin A1c Plasma Lactic Acid Syd Calcium Total Bilirubin AST ALT Troponin I Total Protein Albumin Procalcitonin TSH Urine Appearance Urine Protein Urine Blood Ur Leukocyte Esterase Urine RBC Urine WBC Amorphous Sediment Urine Bacteria Urine Mucus Crossmatch 03/28/23 03/28/23 03/28/23 07:43 12:02 17:04 WBC RBC Hgb Hct RDW Plt Count Neutrophils # Neutrophils # (Manual) Monocytes # Metamyelocytes # (Man) Myelocytes # (Manual) Nucleated RBCs PT INR APTT ABG pH ABG pCO2 ABG pO2 ABG HCO3 ABG Total CO2 ABG O2 Saturation ABG Lactic Acid Sodium Potassium Chloride Carbon Dioxide BUN Creatinine Glucose POC Glucose (mg/dL) 117 H 118 H 122 H Hemoglobin A1c Plasma Lactic Acid Syd Calcium Total Bilirubin AST ALT Troponin I Total Protein Albumin Procalcitonin TSH Urine Appearance Urine Protein Urine Blood Ur Leukocyte Esterase Urine RBC Urine WBC Amorphous Sediment Urine Bacteria Urine Mucus Crossmatch 03/28/23 03/28/23 03/28/23 21:37 23:14 23:52 WBC RBC Hgb Hct RDW Plt Count Neutrophils # Neutrophils # (Manual) Monocytes # Metamyelocytes # (Man) Myelocytes # (Manual) Nucleated RBCs PT INR APTT ABG pH 7.07 L* ABG pCO2 75 H* ABG pO2 ABG HCO3 ABG Total CO2 ABG O2 Saturation ABG Lactic Acid Sodium Potassium Chloride Carbon Dioxide BUN Creatinine Glucose POC Glucose (mg/dL) 296 H 282 H Hemoglobin A1c Plasma Lactic Acid Syd Calcium Total Bilirubin AST ALT Troponin I Total Protein Albumin Procalcitonin TSH Urine Appearance Urine Protein Urine Blood Ur Leukocyte Esterase Urine RBC Urine WBC Amorphous Sediment Urine Bacteria Urine Mucus Crossmatch 03/29/23 03/29/23 03/29/23 00:05 00:13 00:13 WBC 25.0 H RBC 3.10 L Hgb 9.1 L Hct 28.7 L RDW Plt Count Neutrophils # 21.0 H Neutrophils # (Manual) Monocytes # 1.7 H Metamyelocytes # (Man) Myelocytes # (Manual) Nucleated RBCs PT INR APTT ABG pH ABG pCO2 ABG pO2 ABG HCO3 ABG Total CO2 ABG O2 Saturation ABG Lactic Acid 4.2 H* Sodium 136 L Potassium 6.9 H* Chloride Carbon Dioxide BUN 34 H Creatinine 1.74 H Glucose 232 H POC Glucose (mg/dL) Hemoglobin A1c Plasma Lactic Acid Syd Calcium 8.0 L Total Bilirubin 2.2 H AST 1044 H ALT 154 H Troponin I Total Protein 5.5 L Albumin 3.4 L Procalcitonin TSH Urine Appearance Urine Protein Urine Blood Ur Leukocyte Esterase Urine RBC Urine WBC Amorphous Sediment Urine Bacteria Urine Mucus Crossmatch 03/29/23 03/29/23 03/29/23 00:13 01:30 02:46 WBC RBC Hgb Hct RDW Plt Count Neutrophils # Neutrophils # (Manual) Monocytes # Metamyelocytes # (Man) Myelocytes # (Manual) Nucleated RBCs PT INR APTT ABG pH ABG pCO2 ABG pO2 ABG HCO3 ABG Total CO2 ABG O2 Saturation ABG Lactic Acid Sodium Potassium Chloride Carbon Dioxide BUN Creatinine Glucose POC Glucose (mg/dL) 264 H 333 H Hemoglobin A1c Plasma Lactic Acid Syd Calcium Total Bilirubin AST ALT Troponin I 0.064 H* Total Protein Albumin Procalcitonin TSH Urine Appearance Urine Protein Urine Blood Ur Leukocyte Esterase Urine RBC Urine WBC Amorphous Sediment Urine Bacteria Urine Mucus Crossmatch 03/29/23 03/29/23 03/29/23 04:06 06:13 06:13 WBC 31.6 H RBC 2.95 L Hgb 8.7 L Hct 27.5 L RDW Plt Count Neutrophils # 26.7 H Neutrophils # (Manual) Monocytes # 2.8 H Metamyelocytes # (Man) Myelocytes # (Manual) Nucleated RBCs PT INR APTT ABG pH ABG pCO2 ABG pO2 ABG HCO3 ABG Total CO2 ABG O2 Saturation ABG Lactic Acid Sodium Potassium Chloride Carbon Dioxide 19 L BUN 40 H Creatinine 1.91 H Glucose 372 H POC Glucose (mg/dL) Hemoglobin A1c Plasma Lactic Acid Syd 3.5 H* Calcium 7.9 L Total Bilirubin AST ALT Troponin I Total Protein Albumin Procalcitonin TSH Urine Appearance Urine Protein Urine Blood Ur Leukocyte Esterase Urine RBC Urine WBC Amorphous Sediment Urine Bacteria Urine Mucus Crossmatch 03/29/23 03/29/23 03/29/23 06:20 07:09 07:12 WBC RBC Hgb Hct RDW Plt Count Neutrophils # Neutrophils # (Manual) Monocytes # Metamyelocytes # (Man) Myelocytes # (Manual) Nucleated RBCs PT INR APTT ABG pH 7.17 L* ABG pCO2 50 H ABG pO2 168 H ABG HCO3 18 L ABG Total CO2 ABG O2 Saturation 99.5 H ABG Lactic Acid Sodium Potassium Chloride Carbon Dioxide BUN Creatinine Glucose POC Glucose (mg/dL) 441 H 439 H Hemoglobin A1c Plasma Lactic Acid Syd Calcium Total Bilirubin AST ALT Troponin I Total Protein Albumin Procalcitonin TSH Urine Appearance Urine Protein Urine Blood Ur Leukocyte Esterase Urine RBC Urine WBC Amorphous Sediment Urine Bacteria Urine Mucus Crossmatch 03/29/23 03/29/23 03/29/23 08:00 09:45 09:45 WBC 20.6 H RBC 2.28 L Hgb 6.7 L* D Hct 21.3 L RDW 15.7 H Plt Count Neutrophils # 18.0 H Neutrophils # (Manual) Monocytes # 1.3 H Metamyelocytes # (Man) Myelocytes # (Manual) Nucleated RBCs PT INR APTT ABG pH ABG pCO2 ABG pO2 ABG HCO3 ABG Total CO2 ABG O2 Saturation ABG Lactic Acid Sodium Potassium Chloride Carbon Dioxide BUN Creatinine Glucose POC Glucose (mg/dL) Hemoglobin A1c Plasma Lactic Acid Syd Calcium Total Bilirubin AST ALT Troponin I Total Protein Albumin Procalcitonin TSH 0.217 L Urine Appearance Cloudy H Urine Protein 1+ H Urine Blood Moderate H Ur Leukocyte Esterase Large H Urine RBC 6 H Urine WBC 23 H Amorphous Sediment Moderate H Urine Bacteria Rare H Urine Mucus Rare H Crossmatch 03/29/23 03/29/23 03/29/23 09:45 09:59 10:30 WBC RBC Hgb Hct RDW Plt Count Neutrophils # Neutrophils # (Manual) Monocytes # Metamyelocytes # (Man) Myelocytes # (Manual) Nucleated RBCs PT 12.5 H INR 1.2 H APTT ABG pH 7.13 L* ABG pCO2 62 H ABG pO2 111 H ABG HCO3 20 L ABG Total CO2 ABG O2 Saturation 97.4 H ABG Lactic Acid Sodium Potassium Chloride Carbon Dioxide BUN Creatinine Glucose POC Glucose (mg/dL) 434 H Hemoglobin A1c Plasma Lactic Acid Syd Calcium Total Bilirubin AST ALT Troponin I Total Protein Albumin Procalcitonin TSH Urine Appearance Urine Protein Urine Blood Ur Leukocyte Esterase Urine RBC Urine WBC Amorphous Sediment Urine Bacteria Urine Mucus Crossmatch 03/29/23 03/29/23 03/29/23 10:45 10:48 11:23 WBC RBC Hgb Hct RDW Plt Count Neutrophils # Neutrophils # (Manual) Monocytes # Metamyelocytes # (Man) Myelocytes # (Manual) Nucleated RBCs PT 12.1 H INR 1.2 H APTT ABG pH ABG pCO2 ABG pO2 ABG HCO3 ABG Total CO2 ABG O2 Saturation ABG Lactic Acid Sodium Potassium Chloride Carbon Dioxide BUN Creatinine Glucose POC Glucose (mg/dL) 363 H Hemoglobin A1c Plasma Lactic Acid Syd Calcium Total Bilirubin AST ALT Troponin I Total Protein Albumin Procalcitonin TSH Urine Appearance Urine Protein Urine Blood Ur Leukocyte Esterase Urine RBC Urine WBC Amorphous Sediment Urine Bacteria Urine Mucus Crossmatch See Detail 03/29/23 03/29/23 03/29/23 12:16 13:08 14:05 WBC RBC Hgb Hct RDW Plt Count Neutrophils # Neutrophils # (Manual) Monocytes # Metamyelocytes # (Man) Myelocytes # (Manual) Nucleated RBCs PT INR APTT ABG pH ABG pCO2 ABG pO2 ABG HCO3 ABG Total CO2 ABG O2 Saturation ABG Lactic Acid Sodium Potassium Chloride Carbon Dioxide BUN Creatinine Glucose POC Glucose (mg/dL) 365 H 346 H 358 H Hemoglobin A1c Plasma Lactic Acid Syd Calcium Total Bilirubin AST ALT Troponin I Total Protein Albumin Procalcitonin TSH Urine Appearance Urine Protein Urine Blood Ur Leukocyte Esterase Urine RBC Urine WBC Amorphous Sediment Urine Bacteria Urine Mucus Crossmatch 03/29/23 03/29/23 03/29/23 14:57 15:08 16:03 WBC RBC Hgb Hct RDW Plt Count Neutrophils # Neutrophils # (Manual) Monocytes # Metamyelocytes # (Man) Myelocytes # (Manual) Nucleated RBCs PT INR APTT ABG pH 7.15 L* ABG pCO2 64 H ABG pO2 134 H ABG HCO3 ABG Total CO2 ABG O2 Saturation 98.8 H ABG Lactic Acid Sodium Potassium Chloride Carbon Dioxide BUN Creatinine Glucose POC Glucose (mg/dL) 214 H 242 H Hemoglobin A1c Plasma Lactic Acid Syd Calcium Total Bilirubin AST ALT Troponin I Total Protein Albumin Procalcitonin TSH Urine Appearance Urine Protein Urine Blood Ur Leukocyte Esterase Urine RBC Urine WBC Amorphous Sediment Urine Bacteria Urine Mucus Crossmatch 03/29/23 03/29/23 03/29/23 16:28 17:00 17:04 WBC 14.7 H RBC 2.74 L Hgb 8.1 L Hct 24.4 L RDW Plt Count Neutrophils # Neutrophils # (Manual) Monocytes # Metamyelocytes # (Man) Myelocytes # (Manual) Nucleated RBCs PT INR APTT ABG pH 7.26 L ABG pCO2 57 H ABG pO2 ABG HCO3 26 H ABG Total CO2 27 H ABG O2 Saturation 98.0 H ABG Lactic Acid Sodium Potassium Chloride Carbon Dioxide BUN Creatinine Glucose POC Glucose (mg/dL) 276 H Hemoglobin A1c Plasma Lactic Acid Syd Calcium Total Bilirubin AST ALT Troponin I Total Protein Albumin Procalcitonin TSH Urine Appearance Urine Protein Urine Blood Ur Leukocyte Esterase Urine RBC Urine WBC Amorphous Sediment Urine Bacteria Urine Mucus Crossmatch 03/29/23 03/29/23 03/29/23 18:03 18:59 19:00 WBC RBC Hgb Hct RDW Plt Count Neutrophils # Neutrophils # (Manual) Monocytes # Metamyelocytes # (Man) Myelocytes # (Manual) Nucleated RBCs PT INR APTT ABG pH ABG pCO2 ABG pO2 ABG HCO3 ABG Total CO2 ABG O2 Saturation ABG Lactic Acid Sodium Potassium Chloride Carbon Dioxide BUN 51 H Creatinine 2.37 H Glucose 181 H POC Glucose (mg/dL) 225 H 213 H Hemoglobin A1c Plasma Lactic Acid Syd Calcium 7.6 L Total Bilirubin AST ALT Troponin I Total Protein Albumin Procalcitonin TSH Urine Appearance Urine Protein Urine Blood Ur Leukocyte Esterase Urine RBC Urine WBC Amorphous Sediment Urine Bacteria Urine Mucus Crossmatch 03/29/23 03/29/23 03/29/23 19:58 21:00 21:59 WBC RBC Hgb Hct RDW Plt Count Neutrophils # Neutrophils # (Manual) Monocytes # Metamyelocytes # (Man) Myelocytes # (Manual) Nucleated RBCs PT INR APTT ABG pH ABG pCO2 ABG pO2 ABG HCO3 ABG Total CO2 ABG O2 Saturation ABG Lactic Acid Sodium Potassium Chloride Carbon Dioxide BUN Creatinine Glucose POC Glucose (mg/dL) 185 H 153 H 131 H Hemoglobin A1c Plasma Lactic Acid Syd Calcium Total Bilirubin AST ALT Troponin I Total Protein Albumin Procalcitonin TSH Urine Appearance Urine Protein Urine Blood Ur Leukocyte Esterase Urine RBC Urine WBC Amorphous Sediment Urine Bacteria Urine Mucus Crossmatch 03/29/23 03/29/23 03/30/23 23:13 23:59 00:00 WBC RBC Hgb Hct RDW Plt Count Neutrophils # Neutrophils # (Manual) Monocytes # Metamyelocytes # (Man) Myelocytes # (Manual) Nucleated RBCs PT INR APTT 40.6 H ABG pH ABG pCO2 ABG pO2 ABG HCO3 ABG Total CO2 ABG O2 Saturation ABG Lactic Acid Sodium Potassium Chloride Carbon Dioxide BUN Creatinine Glucose POC Glucose (mg/dL) 175 H 219 H Hemoglobin A1c Plasma Lactic Acid Syd Calcium Total Bilirubin AST ALT Troponin I Total Protein Albumin Procalcitonin TSH Urine Appearance Urine Protein Urine Blood Ur Leukocyte Esterase Urine RBC Urine WBC Amorphous Sediment Urine Bacteria Urine Mucus Crossmatch 03/30/23 03/30/23 03/30/23 01:13 02:15 03:07 WBC RBC Hgb Hct RDW Plt Count Neutrophils # Neutrophils # (Manual) Monocytes # Metamyelocytes # (Man) Myelocytes # (Manual) Nucleated RBCs PT INR APTT ABG pH ABG pCO2 ABG pO2 ABG HCO3 ABG Total CO2 ABG O2 Saturation ABG Lactic Acid Sodium Potassium Chloride Carbon Dioxide BUN Creatinine Glucose POC Glucose (mg/dL) 222 H 212 H 185 H Hemoglobin A1c Plasma Lactic Acid Syd Calcium Total Bilirubin AST ALT Troponin I Total Protein Albumin Procalcitonin TSH Urine Appearance Urine Protein Urine Blood Ur Leukocyte Esterase Urine RBC Urine WBC Amorphous Sediment Urine Bacteria Urine Mucus Crossmatch 03/30/23 03/30/23 03/30/23 03:57 03:57 03:57 WBC 14.0 H RBC 2.99 L Hgb 8.8 L Hct 26.3 L RDW 15.6 H Plt Count Neutrophils # 11.4 H Neutrophils # (Manual) Monocytes # Metamyelocytes # (Man) Myelocytes # (Manual) Nucleated RBCs PT INR APTT ABG pH ABG pCO2 ABG pO2 ABG HCO3 ABG Total CO2 ABG O2 Saturation ABG Lactic Acid Sodium Potassium Chloride Carbon Dioxide BUN 55 H Creatinine 2.43 H Glucose 163 H POC Glucose (mg/dL) 175 H Hemoglobin A1c Plasma Lactic Acid Syd Calcium Total Bilirubin AST 3981 H ALT 375 H Troponin I Total Protein 4.7 L Albumin 2.8 L Procalcitonin TSH Urine Appearance Urine Protein Urine Blood Ur Leukocyte Esterase Urine RBC Urine WBC Amorphous Sediment Urine Bacteria Urine Mucus Crossmatch 03/30/23 03/30/23 03/30/23 04:52 05:35 06:12 WBC RBC Hgb Hct RDW Plt Count Neutrophils # Neutrophils # (Manual) Monocytes # Metamyelocytes # (Man) Myelocytes # (Manual) Nucleated RBCs PT INR APTT ABG pH 7.31 L ABG pCO2 55 H ABG pO2 72 L ABG HCO3 28 H ABG Total CO2 30 H ABG O2 Saturation ABG Lactic Acid Sodium Potassium Chloride Carbon Dioxide BUN Creatinine Glucose POC Glucose (mg/dL) 163 H 151 H Hemoglobin A1c Plasma Lactic Acid Syd Calcium Total Bilirubin AST ALT Troponin I Total Protein Albumin Procalcitonin TSH Urine Appearance Urine Protein Urine Blood Ur Leukocyte Esterase Urine RBC Urine WBC Amorphous Sediment Urine Bacteria Urine Mucus Crossmatch 03/30/23 03/30/23 03/30/23 06:57 07:58 08:01 WBC RBC Hgb Hct RDW Plt Count Neutrophils # Neutrophils # (Manual) Monocytes # Metamyelocytes # (Man) Myelocytes # (Manual) Nucleated RBCs PT INR APTT 66.5 H ABG pH ABG pCO2 ABG pO2 ABG HCO3 ABG Total CO2 ABG O2 Saturation ABG Lactic Acid Sodium Potassium Chloride Carbon Dioxide BUN Creatinine Glucose POC Glucose (mg/dL) 136 H 189 H Hemoglobin A1c Plasma Lactic Acid Syd Calcium Total Bilirubin AST ALT Troponin I Total Protein Albumin Procalcitonin TSH Urine Appearance Urine Protein Urine Blood Ur Leukocyte Esterase Urine RBC Urine WBC Amorphous Sediment Urine Bacteria Urine Mucus Crossmatch 03/30/23 03/30/23 03/30/23 09:01 10:17 11:01 WBC RBC Hgb Hct RDW Plt Count Neutrophils # Neutrophils # (Manual) Monocytes # Metamyelocytes # (Man) Myelocytes # (Manual) Nucleated RBCs PT INR APTT ABG pH ABG pCO2 ABG pO2 ABG HCO3 ABG Total CO2 ABG O2 Saturation ABG Lactic Acid Sodium Potassium Chloride Carbon Dioxide BUN Creatinine Glucose POC Glucose (mg/dL) 204 H 196 H 169 H Hemoglobin A1c Plasma Lactic Acid Syd Calcium Total Bilirubin AST ALT Troponin I Total Protein Albumin Procalcitonin TSH Urine Appearance Urine Protein Urine Blood Ur Leukocyte Esterase Urine RBC Urine WBC Amorphous Sediment Urine Bacteria Urine Mucus Crossmatch 03/30/23 03/30/23 03/30/23 12:19 13:07 14:06 WBC RBC Hgb Hct RDW Plt Count Neutrophils # Neutrophils # (Manual) Monocytes # Metamyelocytes # (Man) Myelocytes # (Manual) Nucleated RBCs PT INR APTT ABG pH ABG pCO2 ABG pO2 ABG HCO3 ABG Total CO2 ABG O2 Saturation ABG Lactic Acid Sodium Potassium Chloride Carbon Dioxide BUN Creatinine Glucose POC Glucose (mg/dL) 113 H 135 H 195 H Hemoglobin A1c Plasma Lactic Acid Syd Calcium Total Bilirubin AST ALT Troponin I Total Protein Albumin Procalcitonin TSH Urine Appearance Urine Protein Urine Blood Ur Leukocyte Esterase Urine RBC Urine WBC Amorphous Sediment Urine Bacteria Urine Mucus Crossmatch 03/30/23 03/30/23 03/30/23 15:09 16:04 16:04 WBC 15.4 H RBC 2.95 L Hgb 8.8 L Hct 25.9 L RDW Plt Count Neutrophils # 12.9 H Neutrophils # (Manual) Monocytes # Metamyelocytes # (Man) Myelocytes # (Manual) Nucleated RBCs PT INR APTT ABG pH ABG pCO2 ABG pO2 ABG HCO3 ABG Total CO2 ABG O2 Saturation ABG Lactic Acid Sodium Potassium Chloride Carbon Dioxide BUN 53 H Creatinine 1.99 H Glucose 131 H POC Glucose (mg/dL) 162 H Hemoglobin A1c Plasma Lactic Acid Syd Calcium 7.8 L Total Bilirubin AST 1842 H ALT 208 H Troponin I Total Protein 4.6 L Albumin 2.6 L Procalcitonin TSH Urine Appearance Urine Protein Urine Blood Ur Leukocyte Esterase Urine RBC Urine WBC Amorphous Sediment Urine Bacteria Urine Mucus Crossmatch 03/30/23 03/30/23 03/30/23 16:14 17:29 18:03 WBC RBC Hgb Hct RDW Plt Count Neutrophils # Neutrophils # (Manual) Monocytes # Metamyelocytes # (Man) Myelocytes # (Manual) Nucleated RBCs PT INR APTT ABG pH ABG pCO2 ABG pO2 ABG HCO3 ABG Total CO2 ABG O2 Saturation ABG Lactic Acid Sodium Potassium Chloride Carbon Dioxide BUN Creatinine Glucose POC Glucose (mg/dL) 150 H 119 H 119 H Hemoglobin A1c Plasma Lactic Acid Syd Calcium Total Bilirubin AST ALT Troponin I Total Protein Albumin Procalcitonin TSH Urine Appearance Urine Protein Urine Blood Ur Leukocyte Esterase Urine RBC Urine WBC Amorphous Sediment Urine Bacteria Urine Mucus Crossmatch 03/30/23 03/30/23 03/30/23 19:22 20:59 22:02 WBC RBC Hgb Hct RDW Plt Count Neutrophils # Neutrophils # (Manual) Monocytes # Metamyelocytes # (Man) Myelocytes # (Manual) Nucleated RBCs PT INR APTT ABG pH ABG pCO2 ABG pO2 ABG HCO3 ABG Total CO2 ABG O2 Saturation ABG Lactic Acid Sodium Potassium Chloride Carbon Dioxide BUN Creatinine Glucose POC Glucose (mg/dL) 177 H 186 H 233 H Hemoglobin A1c Plasma Lactic Acid Syd Calcium Total Bilirubin AST ALT Troponin I Total Protein Albumin Procalcitonin TSH Urine Appearance Urine Protein Urine Blood Ur Leukocyte Esterase Urine RBC Urine WBC Amorphous Sediment Urine Bacteria Urine Mucus Crossmatch 03/30/23 03/31/23 03/31/23 22:57 00:00 01:02 WBC RBC Hgb Hct RDW Plt Count Neutrophils # Neutrophils # (Manual) Monocytes # Metamyelocytes # (Man) Myelocytes # (Manual) Nucleated RBCs PT INR APTT ABG pH ABG pCO2 ABG pO2 ABG HCO3 ABG Total CO2 ABG O2 Saturation ABG Lactic Acid Sodium Potassium Chloride Carbon Dioxide BUN Creatinine Glucose POC Glucose (mg/dL) 204 H 167 H 156 H Hemoglobin A1c Plasma Lactic Acid Syd Calcium Total Bilirubin AST ALT Troponin I Total Protein Albumin Procalcitonin TSH Urine Appearance Urine Protein Urine Blood Ur Leukocyte Esterase Urine RBC Urine WBC Amorphous Sediment Urine Bacteria Urine Mucus Crossmatch 03/31/23 03/31/23 03/31/23 01:58 03:10 04:08 WBC RBC Hgb Hct RDW Plt Count Neutrophils # Neutrophils # (Manual) Monocytes # Metamyelocytes # (Man) Myelocytes # (Manual) Nucleated RBCs PT INR APTT ABG pH ABG pCO2 ABG pO2 ABG HCO3 ABG Total CO2 ABG O2 Saturation ABG Lactic Acid Sodium Potassium Chloride Carbon Dioxide BUN Creatinine Glucose POC Glucose (mg/dL) 160 H 171 H 191 H Hemoglobin A1c Plasma Lactic Acid Syd Calcium Total Bilirubin AST ALT Troponin I Total Protein Albumin Procalcitonin TSH Urine Appearance Urine Protein Urine Blood Ur Leukocyte Esterase Urine RBC Urine WBC Amorphous Sediment Urine Bacteria Urine Mucus Crossmatch 03/31/23 03/31/23 03/31/23 04:10 04:10 04:10 WBC 15.0 H RBC 2.85 L Hgb 8.3 L Hct 25.1 L RDW 15.7 H Plt Count Neutrophils # 12.5 H Neutrophils # (Manual) Monocytes # Metamyelocytes # (Man) Myelocytes # (Manual) Nucleated RBCs PT INR APTT ABG pH ABG pCO2 ABG pO2 ABG HCO3 ABG Total CO2 ABG O2 Saturation ABG Lactic Acid Sodium Potassium Chloride Carbon Dioxide BUN 51 H Creatinine 1.59 H Glucose 172 H POC Glucose (mg/dL) Hemoglobin A1c Plasma Lactic Acid Syd Calcium 8.3 L Total Bilirubin AST 963 H ALT 149 H Troponin I Total Protein 4.5 L Albumin 2.5 L Procalcitonin 1.91 H TSH Urine Appearance Urine Protein Urine Blood Ur Leukocyte Esterase Urine RBC Urine WBC Amorphous Sediment Urine Bacteria Urine Mucus Crossmatch 03/31/23 03/31/23 03/31/23 04:53 05:15 05:37 WBC RBC Hgb Hct RDW Plt Count Neutrophils # Neutrophils # (Manual) Monocytes # Metamyelocytes # (Man) Myelocytes # (Manual) Nucleated RBCs PT INR APTT 54.5 H ABG pH ABG pCO2 49 H ABG pO2 ABG HCO3 28 H ABG Total CO2 30 H ABG O2 Saturation 98.1 H ABG Lactic Acid Sodium Potassium Chloride Carbon Dioxide BUN Creatinine Glucose POC Glucose (mg/dL) 206 H Hemoglobin A1c Plasma Lactic Acid Syd Calcium Total Bilirubin AST ALT Troponin I Total Protein Albumin Procalcitonin TSH Urine Appearance Urine Protein Urine Blood Ur Leukocyte Esterase Urine RBC Urine WBC Amorphous Sediment Urine Bacteria Urine Mucus Crossmatch 03/31/23 03/31/23 03/31/23 06:00 06:57 08:00 WBC RBC Hgb Hct RDW Plt Count Neutrophils # Neutrophils # (Manual) Monocytes # Metamyelocytes # (Man) Myelocytes # (Manual) Nucleated RBCs PT INR APTT ABG pH ABG pCO2 ABG pO2 ABG HCO3 ABG Total CO2 ABG O2 Saturation ABG Lactic Acid Sodium Potassium Chloride Carbon Dioxide BUN Creatinine Glucose POC Glucose (mg/dL) 204 H 205 H 194 H Hemoglobin A1c Plasma Lactic Acid Syd Calcium Total Bilirubin AST ALT Troponin I Total Protein Albumin Procalcitonin TSH Urine Appearance Urine Protein Urine Blood Ur Leukocyte Esterase Urine RBC Urine WBC Amorphous Sediment Urine Bacteria Urine Mucus Crossmatch 03/31/23 03/31/23 03/31/23 09:13 09:49 11:30 WBC RBC Hgb Hct RDW Plt Count Neutrophils # Neutrophils # (Manual) Monocytes # Metamyelocytes # (Man) Myelocytes # (Manual) Nucleated RBCs PT INR APTT ABG pH ABG pCO2 ABG pO2 ABG HCO3 ABG Total CO2 ABG O2 Saturation ABG Lactic Acid Sodium Potassium Chloride Carbon Dioxide BUN Creatinine Glucose POC Glucose (mg/dL) 181 H 173 H 162 H Hemoglobin A1c Plasma Lactic Acid Syd Calcium Total Bilirubin AST ALT Troponin I Total Protein Albumin Procalcitonin TSH Urine Appearance Urine Protein Urine Blood Ur Leukocyte Esterase Urine RBC Urine WBC Amorphous Sediment Urine Bacteria Urine Mucus Crossmatch 03/31/23 03/31/23 03/31/23 12:16 13:26 14:46 WBC RBC Hgb Hct RDW Plt Count Neutrophils # Neutrophils # (Manual) Monocytes # Metamyelocytes # (Man) Myelocytes # (Manual) Nucleated RBCs PT INR APTT ABG pH ABG pCO2 ABG pO2 ABG HCO3 ABG Total CO2 ABG O2 Saturation ABG Lactic Acid Sodium Potassium Chloride Carbon Dioxide BUN Creatinine Glucose POC Glucose (mg/dL) 139 H 175 H 178 H Hemoglobin A1c Plasma Lactic Acid Syd Calcium Total Bilirubin AST ALT Troponin I Total Protein Albumin Procalcitonin TSH Urine Appearance Urine Protein Urine Blood Ur Leukocyte Esterase Urine RBC Urine WBC Amorphous Sediment Urine Bacteria Urine Mucus Crossmatch 03/31/23 03/31/23 03/31/23 16:02 17:16 18:12 WBC RBC Hgb Hct RDW Plt Count Neutrophils # Neutrophils # (Manual) Monocytes # Metamyelocytes # (Man) Myelocytes # (Manual) Nucleated RBCs PT INR APTT ABG pH ABG pCO2 ABG pO2 ABG HCO3 ABG Total CO2 ABG O2 Saturation ABG Lactic Acid Sodium Potassium Chloride Carbon Dioxide BUN Creatinine Glucose POC Glucose (mg/dL) 153 H 124 H 159 H Hemoglobin A1c Plasma Lactic Acid Syd Calcium Total Bilirubin AST ALT Troponin I Total Protein Albumin Procalcitonin TSH Urine Appearance Urine Protein Urine Blood Ur Leukocyte Esterase Urine RBC Urine WBC Amorphous Sediment Urine Bacteria Urine Mucus Crossmatch 03/31/23 03/31/23 03/31/23 19:01 19:56 21:11 WBC RBC Hgb Hct RDW Plt Count Neutrophils # Neutrophils # (Manual) Monocytes # Metamyelocytes # (Man) Myelocytes # (Manual) Nucleated RBCs PT INR APTT ABG pH ABG pCO2 ABG pO2 ABG HCO3 ABG Total CO2 ABG O2 Saturation ABG Lactic Acid Sodium Potassium Chloride Carbon Dioxide BUN Creatinine Glucose POC Glucose (mg/dL) 187 H 190 H 154 H Hemoglobin A1c Plasma Lactic Acid Syd Calcium Total Bilirubin AST ALT Troponin I Total Protein Albumin Procalcitonin TSH Urine Appearance Urine Protein Urine Blood Ur Leukocyte Esterase Urine RBC Urine WBC Amorphous Sediment Urine Bacteria Urine Mucus Crossmatch 03/31/23 03/31/23 04/01/23 21:57 23:22 00:03 WBC RBC Hgb Hct RDW Plt Count Neutrophils # Neutrophils # (Manual) Monocytes # Metamyelocytes # (Man) Myelocytes # (Manual) Nucleated RBCs PT INR APTT ABG pH ABG pCO2 ABG pO2 ABG HCO3 ABG Total CO2 ABG O2 Saturation ABG Lactic Acid Sodium Potassium Chloride Carbon Dioxide BUN Creatinine Glucose POC Glucose (mg/dL) 128 H 174 H 197 H Hemoglobin A1c Plasma Lactic Acid Syd Calcium Total Bilirubin AST ALT Troponin I Total Protein Albumin Procalcitonin TSH Urine Appearance Urine Protein Urine Blood Ur Leukocyte Esterase Urine RBC Urine WBC Amorphous Sediment Urine Bacteria Urine Mucus Crossmatch 04/01/23 04/01/23 04/01/23 01:03 01:55 03:17 WBC RBC Hgb Hct RDW Plt Count Neutrophils # Neutrophils # (Manual) Monocytes # Metamyelocytes # (Man) Myelocytes # (Manual) Nucleated RBCs PT INR APTT ABG pH ABG pCO2 ABG pO2 ABG HCO3 ABG Total CO2 ABG O2 Saturation ABG Lactic Acid Sodium Potassium Chloride Carbon Dioxide BUN Creatinine Glucose POC Glucose (mg/dL) 193 H 172 H 136 H Hemoglobin A1c Plasma Lactic Acid Syd Calcium Total Bilirubin AST ALT Troponin I Total Protein Albumin Procalcitonin TSH Urine Appearance Urine Protein Urine Blood Ur Leukocyte Esterase Urine RBC Urine WBC Amorphous Sediment Urine Bacteria Urine Mucus Crossmatch 04/01/23 04/01/23 04/01/23 04:05 04:05 04:05 WBC 16.9 H RBC 2.79 L Hgb 7.9 L Hct 24.8 L RDW 16.3 H Plt Count Neutrophils # 12.8 H Neutrophils # (Manual) Monocytes # 1.2 H Metamyelocytes # (Man) Myelocytes # (Manual) Nucleated RBCs PT INR APTT 45.7 H ABG pH ABG pCO2 ABG pO2 ABG HCO3 ABG Total CO2 ABG O2 Saturation ABG Lactic Acid Sodium Potassium Chloride Carbon Dioxide BUN Creatinine Glucose POC Glucose (mg/dL) 161 H Hemoglobin A1c Plasma Lactic Acid Syd Calcium Total Bilirubin AST ALT Troponin I Total Protein Albumin Procalcitonin TSH Urine Appearance Urine Protein Urine Blood Ur Leukocyte Esterase Urine RBC Urine WBC Amorphous Sediment Urine Bacteria Urine Mucus Crossmatch 04/01/23 04/01/23 04/01/23 04:05 05:11 06:04 WBC RBC Hgb Hct RDW Plt Count Neutrophils # Neutrophils # (Manual) Monocytes # Metamyelocytes # (Man) Myelocytes # (Manual) Nucleated RBCs PT INR APTT ABG pH ABG pCO2 ABG pO2 ABG HCO3 ABG Total CO2 ABG O2 Saturation ABG Lactic Acid Sodium Potassium Chloride 109 H Carbon Dioxide BUN 46 H Creatinine 1.20 H Glucose 160 H POC Glucose (mg/dL) 221 H 225 H Hemoglobin A1c Plasma Lactic Acid Syd Calcium Total Bilirubin AST 313 H ALT 90 H Troponin I Total Protein 4.5 L Albumin 2.5 L Procalcitonin TSH Urine Appearance Urine Protein Urine Blood Ur Leukocyte Esterase Urine RBC Urine WBC Amorphous Sediment Urine Bacteria Urine Mucus Crossmatch 04/01/23 04/01/23 04/01/23 06:20 07:09 07:57 WBC RBC Hgb Hct RDW Plt Count Neutrophils # Neutrophils # (Manual) Monocytes # Metamyelocytes # (Man) Myelocytes # (Manual) Nucleated RBCs PT INR APTT ABG pH 7.34 L ABG pCO2 ABG pO2 65 L ABG HCO3 ABG Total CO2 ABG O2 Saturation 92.5 L ABG Lactic Acid Sodium Potassium Chloride Carbon Dioxide BUN Creatinine Glucose POC Glucose (mg/dL) 225 H 196 H Hemoglobin A1c Plasma Lactic Acid Syd Calcium Total Bilirubin AST ALT Troponin I Total Protein Albumin Procalcitonin TSH Urine Appearance Urine Protein Urine Blood Ur Leukocyte Esterase Urine RBC Urine WBC Amorphous Sediment Urine Bacteria Urine Mucus Crossmatch 04/01/23 04/01/23 04/01/23 08:53 10:17 11:14 WBC RBC Hgb Hct RDW Plt Count Neutrophils # Neutrophils # (Manual) Monocytes # Metamyelocytes # (Man) Myelocytes # (Manual) Nucleated RBCs PT INR APTT ABG pH ABG pCO2 ABG pO2 ABG HCO3 ABG Total CO2 ABG O2 Saturation ABG Lactic Acid Sodium Potassium Chloride Carbon Dioxide BUN Creatinine Glucose POC Glucose (mg/dL) 174 H 162 H 153 H Hemoglobin A1c Plasma Lactic Acid Syd Calcium Total Bilirubin AST ALT Troponin I Total Protein Albumin Procalcitonin TSH Urine Appearance Urine Protein Urine Blood Ur Leukocyte Esterase Urine RBC Urine WBC Amorphous Sediment Urine Bacteria Urine Mucus Crossmatch 04/01/23 04/01/23 04/01/23 12:28 13:10 14:08 WBC RBC Hgb Hct RDW Plt Count Neutrophils # Neutrophils # (Manual) Monocytes # Metamyelocytes # (Man) Myelocytes # (Manual) Nucleated RBCs PT INR APTT ABG pH ABG pCO2 ABG pO2 ABG HCO3 ABG Total CO2 ABG O2 Saturation ABG Lactic Acid Sodium Potassium Chloride Carbon Dioxide BUN Creatinine Glucose POC Glucose (mg/dL) 134 H 148 H 185 H Hemoglobin A1c Plasma Lactic Acid Syd Calcium Total Bilirubin AST ALT Troponin I Total Protein Albumin Procalcitonin TSH Urine Appearance Urine Protein Urine Blood Ur Leukocyte Esterase Urine RBC Urine WBC Amorphous Sediment Urine Bacteria Urine Mucus Crossmatch 04/01/23 04/01/23 04/01/23 15:11 16:06 17:00 WBC RBC Hgb Hct RDW Plt Count Neutrophils # Neutrophils # (Manual) Monocytes # Metamyelocytes # (Man) Myelocytes # (Manual) Nucleated RBCs PT INR APTT ABG pH ABG pCO2 ABG pO2 ABG HCO3 ABG Total CO2 ABG O2 Saturation ABG Lactic Acid Sodium Potassium Chloride Carbon Dioxide BUN Creatinine Glucose POC Glucose (mg/dL) 198 H 189 H 178 H Hemoglobin A1c Plasma Lactic Acid Syd Calcium Total Bilirubin AST ALT Troponin I Total Protein Albumin Procalcitonin TSH Urine Appearance Urine Protein Urine Blood Ur Leukocyte Esterase Urine RBC Urine WBC Amorphous Sediment Urine Bacteria Urine Mucus Crossmatch 04/01/23 04/01/23 04/01/23 18:00 18:58 19:50 WBC RBC Hgb Hct RDW Plt Count Neutrophils # Neutrophils # (Manual) Monocytes # Metamyelocytes # (Man) Myelocytes # (Manual) Nucleated RBCs PT INR APTT ABG pH ABG pCO2 ABG pO2 ABG HCO3 ABG Total CO2 ABG O2 Saturation ABG Lactic Acid Sodium Potassium Chloride Carbon Dioxide BUN Creatinine Glucose POC Glucose (mg/dL) 161 H 148 H 143 H Hemoglobin A1c Plasma Lactic Acid Syd Calcium Total Bilirubin AST ALT Troponin I Total Protein Albumin Procalcitonin TSH Urine Appearance Urine Protein Urine Blood Ur Leukocyte Esterase Urine RBC Urine WBC Amorphous Sediment Urine Bacteria Urine Mucus Crossmatch 04/01/23 04/01/23 04/01/23 21:08 22:20 23:09 WBC RBC Hgb Hct RDW Plt Count Neutrophils # Neutrophils # (Manual) Monocytes # Metamyelocytes # (Man) Myelocytes # (Manual) Nucleated RBCs PT INR APTT ABG pH ABG pCO2 ABG pO2 ABG HCO3 ABG Total CO2 ABG O2 Saturation ABG Lactic Acid Sodium Potassium Chloride Carbon Dioxide BUN Creatinine Glucose POC Glucose (mg/dL) 132 H 161 H 179 H Hemoglobin A1c Plasma Lactic Acid Syd Calcium Total Bilirubin AST ALT Troponin I Total Protein Albumin Procalcitonin TSH Urine Appearance Urine Protein Urine Blood Ur Leukocyte Esterase Urine RBC Urine WBC Amorphous Sediment Urine Bacteria Urine Mucus Crossmatch 04/02/23 04/02/23 04/02/23 00:19 01:04 02:09 WBC RBC Hgb Hct RDW Plt Count Neutrophils # Neutrophils # (Manual) Monocytes # Metamyelocytes # (Man) Myelocytes # (Manual) Nucleated RBCs PT INR APTT ABG pH ABG pCO2 ABG pO2 ABG HCO3 ABG Total CO2 ABG O2 Saturation ABG Lactic Acid Sodium Potassium Chloride Carbon Dioxide BUN Creatinine Glucose POC Glucose (mg/dL) 180 H 193 H 196 H Hemoglobin A1c Plasma Lactic Acid Syd Calcium Total Bilirubin AST ALT Troponin I Total Protein Albumin Procalcitonin TSH Urine Appearance Urine Protein Urine Blood Ur Leukocyte Esterase Urine RBC Urine WBC Amorphous Sediment Urine Bacteria Urine Mucus Crossmatch 04/02/23 04/02/23 04/02/23 03:04 04:13 05:05 WBC RBC Hgb Hct RDW Plt Count Neutrophils # Neutrophils # (Manual) Monocytes # Metamyelocytes # (Man) Myelocytes # (Manual) Nucleated RBCs PT INR APTT ABG pH ABG pCO2 ABG pO2 ABG HCO3 ABG Total CO2 ABG O2 Saturation ABG Lactic Acid Sodium Potassium Chloride Carbon Dioxide BUN Creatinine Glucose POC Glucose (mg/dL) 191 H 166 H 174 H Hemoglobin A1c Plasma Lactic Acid Syd Calcium Total Bilirubin AST ALT Troponin I Total Protein Albumin Procalcitonin TSH Urine Appearance Urine Protein Urine Blood Ur Leukocyte Esterase Urine RBC Urine WBC Amorphous Sediment Urine Bacteria Urine Mucus Crossmatch 04/02/23 04/02/23 04/02/23 05:10 05:10 05:10 WBC RBC 2.45 L Hgb 7.2 L Hct 22.5 L RDW 16.0 H Plt Count Neutrophils # 8.0 H Neutrophils # (Manual) Monocytes # Metamyelocytes # (Man) Myelocytes # (Manual) Nucleated RBCs PT INR APTT 35.6 H ABG pH ABG pCO2 ABG pO2 ABG HCO3 ABG Total CO2 ABG O2 Saturation ABG Lactic Acid Sodium Potassium Chloride 110 H Carbon Dioxide 31 H BUN 53 H Creatinine 1.09 H Glucose 148 H POC Glucose (mg/dL) Hemoglobin A1c Plasma Lactic Acid Syd Calcium Total Bilirubin AST ALT Troponin I Total Protein Albumin Procalcitonin TSH Urine Appearance Urine Protein Urine Blood Ur Leukocyte Esterase Urine RBC Urine WBC Amorphous Sediment Urine Bacteria Urine Mucus Crossmatch 04/02/23 04/02/23 04/02/23 05:40 05:55 06:53 WBC RBC Hgb Hct RDW Plt Count Neutrophils # Neutrophils # (Manual) Monocytes # Metamyelocytes # (Man) Myelocytes # (Manual) Nucleated RBCs PT INR APTT ABG pH ABG pCO2 51 H ABG pO2 ABG HCO3 30 H ABG Total CO2 32 H ABG O2 Saturation ABG Lactic Acid Sodium Potassium Chloride Carbon Dioxide BUN Creatinine Glucose POC Glucose (mg/dL) 169 H 159 H Hemoglobin A1c Plasma Lactic Acid Syd Calcium Total Bilirubin AST ALT Troponin I Total Protein Albumin Procalcitonin TSH Urine Appearance Urine Protein Urine Blood Ur Leukocyte Esterase Urine RBC Urine WBC Amorphous Sediment Urine Bacteria Urine Mucus Crossmatch 04/02/23 04/02/23 04/02/23 08:47 10:51 13:20 WBC RBC Hgb Hct RDW Plt Count Neutrophils # Neutrophils # (Manual) Monocytes # Metamyelocytes # (Man) Myelocytes # (Manual) Nucleated RBCs PT INR APTT 53.7 H ABG pH ABG pCO2 ABG pO2 ABG HCO3 ABG Total CO2 ABG O2 Saturation ABG Lactic Acid Sodium Potassium Chloride Carbon Dioxide BUN Creatinine Glucose POC Glucose (mg/dL) 164 H 163 H Hemoglobin A1c Plasma Lactic Acid Syd Calcium Total Bilirubin AST ALT Troponin I Total Protein Albumin Procalcitonin TSH Urine Appearance Urine Protein Urine Blood Ur Leukocyte Esterase Urine RBC Urine WBC Amorphous Sediment Urine Bacteria Urine Mucus Crossmatch 04/02/23 04/02/23 04/02/23 13:27 17:46 23:33 WBC RBC Hgb Hct RDW Plt Count Neutrophils # Neutrophils # (Manual) Monocytes # Metamyelocytes # (Man) Myelocytes # (Manual) Nucleated RBCs PT INR APTT ABG pH ABG pCO2 ABG pO2 ABG HCO3 ABG Total CO2 ABG O2 Saturation ABG Lactic Acid Sodium Potassium Chloride Carbon Dioxide BUN Creatinine Glucose POC Glucose (mg/dL) 174 H 197 H 206 H Hemoglobin A1c Plasma Lactic Acid Syd Calcium Total Bilirubin AST ALT Troponin I Total Protein Albumin Procalcitonin TSH Urine Appearance Urine Protein Urine Blood Ur Leukocyte Esterase Urine RBC Urine WBC Amorphous Sediment Urine Bacteria Urine Mucus Crossmatch 04/03/23 04/03/23 04/03/23 05:01 05:01 05:01 WBC 10.9 H RBC 2.59 L Hgb 7.4 L Hct 23.8 L RDW 17.1 H Plt Count 146 L Neutrophils # Neutrophils # (Manual) 8.30 H Monocytes # Metamyelocytes # (Man) 0.11 H Myelocytes # (Manual) 0.22 H Nucleated RBCs 2 H PT INR APTT 53.6 H ABG pH ABG pCO2 ABG pO2 ABG HCO3 ABG Total CO2 ABG O2 Saturation ABG Lactic Acid Sodium Potassium 5.4 H Chloride 110 H Carbon Dioxide BUN 56 H Creatinine 1.07 H Glucose 191 H POC Glucose (mg/dL) Hemoglobin A1c Plasma Lactic Acid Syd Calcium Total Bilirubin AST ALT Troponin I Total Protein Albumin 2.6 L Procalcitonin TSH Urine Appearance Urine Protein Urine Blood Ur Leukocyte Esterase Urine RBC Urine WBC Amorphous Sediment Urine Bacteria Urine Mucus Crossmatch 04/03/23 04/03/23 05:45 05:55 WBC RBC Hgb Hct RDW Plt Count Neutrophils # Neutrophils # (Manual) Monocytes # Metamyelocytes # (Man) Myelocytes # (Manual) Nucleated RBCs PT INR APTT ABG pH ABG pCO2 ABG pO2 ABG HCO3 30 H ABG Total CO2 31 H ABG O2 Saturation 99.1 H ABG Lactic Acid Sodium Potassium Chloride Carbon Dioxide BUN Creatinine Glucose POC Glucose (mg/dL) 209 H Hemoglobin A1c Plasma Lactic Acid Syd Calcium Total Bilirubin AST ALT Troponin I Total Protein Albumin Procalcitonin TSH Urine Appearance Urine Protein Urine Blood Ur Leukocyte Esterase Urine RBC Urine WBC Amorphous Sediment Urine Bacteria Urine Mucus Crossmatch Assessment and Plan Assessment: * Altered mental status, likely due to toxic metabolic encephalopathy * Status post fall, with right femur fracture, status post surgery 03/28/2023 * Possible PE versus fat embolism, with subsequent significant hemodynamic instability, right heart strain * Acute severe blood loss anemia status post transfusion * Status post acute hypotensive shock from blood loss anemia * Acute kidney injury * COPD * Diabetes * Hyperlipidemia * Hypertension * Pneumonia * Obesity * X tobacco use * History of right knee arthroplasty in fall of 2021 Plan: * We will perform EEG to evaluate for encephalopathy. * CT head, when able to be performed. At present patient is very unstable, not able to lay flat for any testing. * Medical management as per IM, critical care and other specialties * Neurology will follow. Dr. Antoine Levine to start neurology service in the morning. Thank you for the consult.
[2023-04-03 18:16] LABS: Glucose,Whole Blood 222 mg/dL (70-110)
[2023-04-03] MEDS: INSULIN DETEMIR (LEVEMIR) 100 UNIT/ML SYR SQ SCH (18:23)
[2023-04-03] MEDS: OLANZapine 5 MG TAB PO SCH (20:34)
[2023-04-03] MEDS: SENNOSIDES-DOCUSATE SODIUM 1 EACH TAB PO SCH (20:34)
[2023-04-03 23:40] LABS: Glucose,Whole Blood 188 mg/dL (70-110)
[2023-04-04] MEDS: IPRATROPIUM-ALBUTEROL 3 ML NEB INHALATION SCH ×6 (00:50→20:12)
[2023-04-04] MEDS: PIPERACILLIN-TAZOBACTAM 3.375 GM in SODIUM CHLORIDE 0.9% 100 ML IVPB SCH ×4 (00:50→23:05)
[2023-04-04] MEDS: INSULIN ASPART (NovoLOG) 100 UNIT/ML VIAL SQ SCH ×5 (00:51→23:53)
[2023-04-04] MEDS: HEPARIN SOD,PORK IN 0.45% NACL 25,000 UNIT in 0.45% NACL 1 250ML.BAG IV SCH (00:51)
[2023-04-04] MEDS: SODIUM CHLORIDE 0.9% 1,000 ML IV SCH (04:53)
[2023-04-04 06:08] LABS: ABG Base Excess 5.7 mmol/L; ABG HCO3 30 mmol/L (21-25); ABG Oxygen Saturation 98.4 % (94-97); ABG PCO2 44 mmHg (35-45); ABG PH 7.44 (7.35-7.45); ABG PO2 91 mmHg (83-108); ABG TCO2 31 mmol/L (19-24); Allen Test Performed? Yes
[2023-04-04 06:43] LABS: Glucose,Whole Blood 149 mg/dL (70-110)
[2023-04-04 06:48] LABS: Anisocytosis Slight; HCT 23.8 % (34.0-46.0); HGB 7.7 gm/dL (11.4-16.0); Hypochromasia Slight; MCH 29.5 pg (25.0-35.0); MCHC 32.2 g/dL (31.0-37.0); MCV 91.9 fL (80.0-100.0); Mean Platelet Volume 9.1; RBC 2.59 m/uL (3.80-5.40); RDW 17.7 % (11.5-15.5); WBC 10.5 k/uL (3.8-10.6)
[2023-04-04 07:24] LABS: Calcium 9.9 mg/dL (8.4-10.2); Potassium 4.9 mmol/L (3.5-5.1)
[2023-04-04 07:48] LABS: Band Neutrophils % 1 %; Eosinophils # (M) 0.32 k/uL (0-0.7); Lymphocytes # (M) 1.47 k/uL (1.0-4.8); Metamyelocytes # (M) 0.32 k/uL (0); Metamyelocytes % 3 %; Monocytes # (M) 0.84 k/uL (0-1.0); Myelocytes # (M) 0.32 k/uL (0); Myelocytes % 3 %; Neutrophils % (M) 70 %; Nucleated Red Blood Cells 0 /100 WBC (0-0); Total Cells Counted 200
[2023-04-04 07:49] LABS: Polychromasia Present
[2023-04-04 07:50] LABS: Platelet Count 80 k/uL (150-450)
--- NOTE | 2023-04-04 07:59 | XR ---
EXAMINATION TYPE: XR chest 1V portable DATE OF EXAM: 04/04/2023 Comparison: 04/03/2023 Clinical History: 72-year-old female mechanical ventilator Findings: ET and NG tubes are satisfactory. Left subclavian CVC tip upper right atrium. Patient is rotated towa rd the left alters the normal cardiomediastinal contours. Heart appears upper limits of normal in siz e. Mild hyperinflation. Mild interstitial prominence persists. Envoy small left pleural effusion but with prominent left basilar and retrocardiac opacity. Impression: Rotated exam. COPD with ongoing small left pleural effusion and prominent left basilar and retrocardi ac atelectasis and/or consolidation.
[2023-04-04] MEDS ORDERED: FUROSEMIDE 10 MG/ML 10 ML VIAL IV STA (09:05)
[2023-04-04] MEDS: ASPIRIN 81 MG PO SCH ×2 (09:15→20:04)
[2023-04-04] MEDS ORDERED: METOPROLOL SUCCINATE (ER) 25 MG TAB.ER.24H PO SCH (09:15)
[2023-04-04] MEDS: FLUoxetine HCL 20 MG CAP PO SCH (09:16)
[2023-04-04] MEDS: CINACALCET 30 MG TAB PO SCH (09:16)
[2023-04-04] MEDS: METOPROLOL TARTRATE 12.5 MG TAB PO SCH ×2 (09:48→20:04)
[2023-04-04] MEDS: SENNOSIDES 8.6 MG TAB PO SCH ×2 (09:48→20:04)
[2023-04-04] MEDS: HYDROcodone/APAP 5-325MG 1 EACH TAB PO PRN ×2 (09:48→15:55)
[2023-04-04] MEDS: CHLORHEXIDINE GLUCONATE 15 ML CUP MUCOUS MEM SCH ×2 (09:49→20:03)
[2023-04-04] MEDS: PANTOPRAZOLE 40 MG/10 ML VIAL IV SCH (09:49)
[2023-04-04] MEDS: CLEVIDIPINE BUTYRATE 25 MG in EMPTY BAG 1 BAG IV SCH ×5 (09:49→23:48)
[2023-04-04] MEDS: SODIUM CHLORIDE 0.9% 80 ML with fentaNYL (PF) 1,000 MCG IV SCH ×2 (10:40)
[2023-04-04] MEDS: FERROUS SULFATE 325 MG TAB PO SCH (10:41)
[2023-04-04] MEDS: NOREPINEPHRINE 32 MG in SODIUM CHLORIDE 0.9% 218 ML IV SCH (10:41)
--- NOTE | 2023-04-04 10:48 | P.PN ---
Subjective Progress Note Date: 04/04/23 Principal diagnosis: Respiratory failure. Patient was reevaluated today on 04/01/2023, remains in the ICU, intubated and mechanically ventilated. She is now on assist control rate of 32 tidal volume of 450 FiO2 45% and PEEP of 5 ABG showed a pO2 of 65 pCO2 43 pH of 7.34 hence Fi O2 was increased to 50%. Chest x-ray showed atelectasis of the left lower lobe as the patient underwent bronchoscopy today, and suction some tenacious secretions in the left lower lobe bronchus. No evidence of any other significant findings. Fluid obtained was sent for diagnostic studies. Patient remains on propofol at 20 mcg/kg/m she is also on heparin drip for presumptive pulmonary embolism she is receiving insulin at 5.3 units per hour norepinephrine at low-dose, however this was discontinued once the patient woke up and evaluated off propofol. Patient remains on Rocephin empirically, cultures have been negative so far. Awaiting cultures from the BAL of the left lower lobe today. Obviously the patient is not quite ready for weaning off propofol she was noted to be tachypneic, tachycardic, and her blood pressure was as high as 200 systolic. Hence no further weaning to be done today. And her ventilator settings will be adjusted accordingly after bronchoscopy and BAL. Labs today were reviewed she has a bit of leukocytosis with WBC count of 16.9 her PTT is therapeutic at 45.7 and electrolytes are normal BUN is down to 46 creatinine is down to 1.20 will continue to monitor heparin for now and monitor her renal status, may eventually recommend CT angiogram of the chest to confirm whether the patient had thromboembolic disease/pulmonary embolism. Pro calcitonin level was 1.91, nonetheless patient remains on Rocephin. So far urine cultures and blood cultures and sputum cultures have been negative Patient was reevaluated today on 04/02/2023, remains in the ICU, intubated and mechanically ventilated. Patient had a bit of a setback last night, apparently there was some issues with the nasogastric tube, and it was felt that the patient may have aspirated some of her feedings from the nasogastric tube, hence this tube was removed and another tube was placed, follow-up chest x-ray showed adequate placement of the orogastric tube. In the meantime the patient desat urated and she required increase in her FiO2. She went up as high as 75% PEEP was increased to 8 and today I recommended increasing the PEEP to 12 and FiO2 down to 65%. And advised titration. Chest x-ray continues to show left lower lobe consolidation. Right side seems to be relatively clear. ABG this morning showed a pO2 of 84 pCO2 51 pH of 7.39. Patient is on propofol at 50 mcg/kg/m she is also on insulin at 4.25 units per hour vital HPI 29 mL/h she is off norepinephrine. Considering the aspiration situation I recommended that we change antibiotics to Zosyn cultures from the BAL of the left lower lobe are pending. Her vent settings changed to assist control rate of 32 tidal volume 450 FiO2 65% and PEEP of 12. WBC count is 10.6 hemoglobin is 7.2 PTT is 35.6, electrolytes are normal BUN is 53 creatinine 1.[address] angiogram of the chest in the next 24-48 hours in the meantime the patient seems to be tolerating heparin well Reevaluated today on 04/03/2023, patient remains in the ICU, intubated and mechanically ventilated. Her assist-control rate is 3 to tidal volume is 450 FiO2 60% and I cut down today to 50% PEEP is at 12. Patient remains on propofol at 50 mcg/kg/m remains on heparin drip, she is also on vital HPI 29 mL per hour. Antibiotics aguirre remains on Zosyn, cultures have been negative along. Even though washing from the BAL of the left lower lobe remains nondiagnostic. ABG showed a pO2 of 108 pCO2 42 pH of 7.45 hence FiO2 was cut down from 60% to 50%. Patient has been off sedation, she does not seem to be appropriate, she opens her eyes, but does not follow any instructions, she seems to be confused, and encephalopathic. Hence I initiated a neurological consultation, I believe the patient may have sustained fat embolism to explain her mental status. Would like to have a CT of the brain and CT of the chest, however the patient cannot lay flat, and she desaturates significantly upon laying flat, hence we'll hold on both for now. Her urine output is excellent and she was given more Lasix a day. Her pain seems to be under control and her blood pressure seems to respond well to Dilaudid every 2 hours as needed. Considering her ABG is marginal and considering that the patient is requiring relatively high PEEP I am not yet ready to extubate the patient also concerned about her mental status. WBC count is 10.9 hemoglobin is 7.4. PTT is 53.6. BUN is 56 creatinine is 1.07. Considering CT angiogram of the chest but because of her inability to lay flat and she desaturates easily him holding on the CT angiogram of the chest for now. Progress note dated 04/04/2023. 72-year-old female admitted back on March 26. She had a fall and fractured her right femur. She went to the operating room on March 28, and was intubated on that day. She was thought to possibly have pulmonary embolism, or fat embolism syndrome. Because of her instability, she's not been able to go for a CT angiogram. Currently, she remains on the ventilator, at volume assist control, rate 32, , tidal volume 450, FiO2 50%, and PEEP of 12. Blood gases show pO2 of 91, pCO2 44, and pH is 7.44. She remains on propofol at 75 mcg/kg/m, IV heparin, 0.9 at KVO, and vital, at 23 mL an hour, which is goal. The nurse has a number of issues today and redressed some all. For her blood pressure elevation, we start her on Cleveprex, to be titrated slowly systolic blood pressures less than 160 and the mean is less than 100. We had backed the patien t's Toprol-XL. In addition, because of fluid retention, we'll give the patient Lasix 60 mg IV push. We will dose daily based on her I's and O's. We also will discontinue heparin, and started on Lovenox 120 mg subcu every 12 hours. This is because her platelet count has declined to 80,000. In addition, we will order that heparin-induced thrombocytopenia antibodies. White count 10.5, hemoglobin 7.7, hematocrit 23.8, and platelet count 80,000. Sodium 142, potassium 4.9, chlorides 108, CO2 28, BUN 54, creatinine 0.99. Microbiologic sampling has been negative. Chest x-ray shows changes of COPD, with a small left-sided pleural effusion, and retrocardiac atelectasis or consolidation. Objective - Vital Signs Vital signs: Vital Signs Temp 99.0 F 04/04/23 04:00 Pulse 98 04/04/23 08:38 Resp 32 H 04/04/23 07:00 BP 160/63 04/03/23 00:45 Pulse Ox 93 L 04/04/23 07:00 FiO2 50 04/04/23 08:12 Intake & Output 04/03/23 04/04/23 04/04/23 18:59 06:59 18:59 Intake Total 1338.435 9200.475 150.840 Output Total 1910 1040 Balance -65.923 1233.475 150.840 Weight 133.7 kg Intake: IV 290 260 Piperacillin-Tazobactam 3 100 .375 gm In Sodium Chloride 0.9% 100 ml @ 25 mls/hr IVPB Q8HR [facility] Rx# :[id number] Sodium Chloride 0.9% 1, 190 260 000 ml @ 20 mls/hr IV . Q24H [facility] Rx#:[id number] Intake, IV Titration 576.077 706.475 150.840 Amount Clevidipine Butyrate 25 0.467 mg In Empty Bag 1 bag @ 1 MG/HR 2 mls/hr IV .Q24H [facility] Rx#:[id number] Heparin Sod,Pork in 0.45% 250 136.972 NaCl 25,000 unit In 0.45 % NaCl 1 250ml.bag @ 8.65 UNITS/KG/HR 10.005 mls/ hr IV .Q24H [facility] Rx#: [id number] propofoL 1,000 mg In 326.077 569.503 150.373 Empty Bag 1 bag @ 15 MCG/ KG/MIN 10.41 mls/hr IV . Q9H37M [facility] Rx#:[id number] Tube Feeding 348 377 Other 630 930 Output: Urine 1910 1040 Other: Voiding Method Indwelling Catheter Indwelling Catheter ABP, PAP, CO, CI - Last Documented Arterial Blood Pressure 173/54 - Exam No acute distress, sedated, with an orally placed endotracheal tube and NG tube. HEENT examination is grossly unremarkable. Neck supple. Full range of motion. No adenopathy thyromegaly or neck vein distention. Cardiovascular examination reveals regular rhythm rate. S1-S2 normal. No S3 or S4. No discernible murmur noted. Heart sounds are distant. Heart rate 98 bpm. Lungs reveal scattered bilateral rhonchi. No wheezes or crackles. Breath sounds equal. Saturations are in the low 90s. Abdomen obese, with bowel sounds. Extremities are intact. No cyanosis or clubbing. There is diffuse edema and anasarca. Skin is without rash or lesion. Neurologic examination cannot be adequately assessed at this time. - Labs CBC & Chem 7: 04/04/23 06:03 04/04/23 06:03 Labs: Abnormal Lab Results - Last 24 Hours (Table) 04/03/23 04/03/23 04/03/23 Range/Units 12:00 18:05 23:38 RBC (3.80-5.40) m/uL Hgb (11.4-16.0) gm/dL Hct (34.0-46.0) % RDW (11.5-15.5) % Plt Count (150-450) k/uL Metamyelocytes # (Man) (0) k/uL Myelocytes # (Manual) (0) k/uL ABG HCO3 (21-25) mmol/L ABG Total CO2 (19-24) mmol/L ABG O2 Saturation (94-97) % Chloride (98-107) mmol/L BUN (7-17) mg/dL Glucose (74-99) mg/dL POC Glucose (mg/dL) 194 H 222 H 188 H (70-110) mg/dL 04/04/23 04/04/23 04/04/23 Range/Units 06:03 06:03 06:04 RBC 2.59 L (3.80-5.40) m/uL Hgb 7.7 L (11.4-16.0) gm/dL Hct 23.8 L (34.0-46.0) % RDW 17.7 H (11.5-15.5) % Plt Count 80 L (150-450) k/uL Metamyelocytes # (Man) 0.32 H (0) k/uL Myelocytes # (Manual) 0.32 H (0) k/uL ABG HCO3 30 H (21-25) mmol/L ABG Total CO2 31 H (19-24) mmol/L ABG O2 Saturation 98.4 H (94-97) % Chloride 108 H (98-107) mmol/L BUN 54 H (7-17) mg/dL Glucose 142 H (74-99) mg/dL POC Glucose (mg/dL) (70-110) mg/dL 04/04/23 Range/Units 06:41 RBC (3.80-5.40) m/uL Hgb (11.4-16.0) gm/dL Hct (34.0-46.0) % RDW (11.5-15.5) % Plt Count (150-450) k/uL Metamyelocytes # (Man) (0) k/uL Myelocytes # (Manual) (0) k/uL ABG HCO3 (21-25) mmol/L ABG Total CO2 (19-24) mmol/L ABG O2 Saturation (94-97) % Chloride (98-107) mmol/L BUN (7-17) mg/dL Glucose (74-99) mg/dL POC Glucose (mg/dL) 149 H (70-110) mg/dL Microbiology - Last 24 Hours (Table) 04/01/23 10:00 Gram Stain - Final Bronchial Washings - Left Bronchial Washings Culture - Final 03/29/23 06:13 Blood Culture - Final Blood Assessment and Plan Assessment: Acute hypoxemic and hypercapnic respiratory failure, possibly secondary to pulmonary embolism, or fat embolism syndrome. Postop day #7, status post repair of comminuted right femur fracture. Hypotension, which may relate to PE, or FES. Acute kidney injury. Rule out heparin-induced thrombocytopenia. Acute blood loss anemia. Lactic acidemia secondary to hypotension and hypoperfusion. Shock liver. Previous right total knee replacement. Morbid obesity. History of obstructive sleep apnea syndrome. Previous history of tobacco use. Left lower lobe atelectasis versus pneumonia. Status post bronchoscopy and BAL, postop day #3. Mental status changes, likely related to metabolic encephalopathy. Plan: Plan dated 04/04/2023. The patient is started back on Toprol, which she was taking as an outpatient, and we also added IV Cleveprex, is a dihydropyridine calcium channel alisha, for better blood pressure support. I put targets of systolics less than 160, and mean arterial pressures of less than 100 to the nurse. The patient will get Lasix 60 mg IV push once. We'll DC the IV heparin in favor of Lovenox 120 mg subcu every 12 hours. HIT antibodies are ordered. Labs, x-rays, medications are all reviewed. We will continue to follow make recommendations along the way. Prognosis is guarded. Time with Patient: Greater than 30
--- NOTE | 2023-04-04 11:39 | P.PN ---
Subjective Patient is seen for follow-up for acute kidney injury and top of chronic kidney disease. Renal function has improved significantly. Serum creatinine down to 0.9 mg/dL. Urine output at 60-100 mL an hour. Status post IV Lasix this morning Maintained on Cleviprex drip for hypertension Patient is noted to be on Sensipar. Her calcium had been on the lower side this admission. I do not see a PTH. Objective - Vital Signs Vital signs: Vital Signs Temp 99.5 F 04/04/23 08:00 Pulse 98 04/04/23 10:00 Resp 32 H 04/04/23 10:00 BP 160/63 04/03/23 00:45 Pulse Ox 96 04/04/23 10:00 FiO2 50 04/04/23 08:12 Intake & Output 04/03/23 04/04/23 04/04/23 18:59 06:59 18:59 Intake Total 1465.292 7603.475 597.840 Output Total 1910 1040 550 Balance -65.923 1233.475 47.840 Weight 133.7 kg Intake: IV 290 260 60 Piperacillin-Tazobactam 3 100 .375 gm In Sodium Chloride 0.9% 100 ml @ 25 mls/hr IVPB Q8HR [facility] Rx# :[id number] Sodium Chloride 0.9% 1, 190 260 60 000 ml @ 20 mls/hr IV . Q24H [facility] Rx#:[id number] Intake, IV Titration 576.077 706.475 150.840 Amount Clevidipine Butyrate 25 0.467 mg In Empty Bag 1 bag @ 1 MG/HR 2 mls/hr IV .Q24H [facility] Rx#:[id number] Heparin Sod,Pork in 0.45% 250 136.972 NaCl 25,000 unit In 0.45 % NaCl 1 250ml.bag @ 8.65 UNITS/KG/HR 10.005 mls/ hr IV .Q24H [facility] Rx#: [id number] propofoL 1,000 mg In 326.077 569.503 150.373 Empty Bag 1 bag @ 15 MCG/ KG/MIN 10.41 mls/hr IV . Q9H37M [facility] Rx#:[id number] Tube Feeding 348 377 87 Other 630 930 300 Output: Urine 1910 1040 550 Other: Voiding Method Indwelling Catheter Indwelling Catheter Indwelling Catheter ABP, PAP, CO, CI - Last Documented Arterial Blood Pressure 172/52 - Exam Patient is intubated and on the vent FiO2 at 50% Examination of the heart S1 and S2 Examination of the lungs bilateral breath sounds are heard Abdomen is soft obese Examination of lower extremities shows edema 2+ bilaterally upper and lower extremities - Labs CBC & Chem 7: 04/04/23 06:03 04/04/23 06:03 Labs: Abnormal Lab Results - Last 24 Hours (Table) 04/03/23 04/03/23 04/03/23 Range/Units 12:00 18:05 23:38 RBC (3.80-5.40) m/uL Hgb (11.4-16.0) gm/dL Hct (34.0-46.0) % RDW (11.5-15.5) % Plt Count (150-450) k/uL Metamyelocytes # (Man) (0) k/uL Myelocytes # (Manual) (0) k/uL ABG HCO3 (21-25) mmol/L ABG Total CO2 (19-24) mmol/L ABG O2 Saturation (94-97) % Chloride (98-107) mmol/L BUN (7-17) mg/dL Glucose (74-99) mg/dL POC Glucose (mg/dL) 194 H 222 H 188 H (70-110) mg/dL 04/04/23 04/04/23 04/04/23 Range/Units 06:03 06:03 06:04 RBC 2.59 L (3.80-5.40) m/uL Hgb 7.7 L (11.4-16.0) gm/dL Hct 23.8 L (34.0-46.0) % RDW 17.7 H (11.5-15.5) % Plt Count 80 L (150-450) k/uL Metamyelocytes # (Man) 0.32 H (0) k/uL Myelocytes # (Manual) 0.32 H (0) k/uL ABG HCO3 30 H (21-25) mmol/L ABG Total CO2 31 H (19-24) mmol/L ABG O2 Saturation 98.4 H (94-97) % Chloride 108 H (98-107) mmol/L BUN 54 H (7-17) mg/dL Glucose 142 H (74-99) mg/dL POC Glucose (mg/dL) (70-110) mg/dL 04/04/23 Range/Units 06:41 RBC (3.80-5.40) m/uL Hgb (11.4-16.0) gm/dL Hct (34.0-46.0) % RDW (11.5-15.5) % Plt Count (150-450) k/uL Metamyelocytes # (Man) (0) k/uL Myelocytes # (Manual) (0) k/uL ABG HCO3 (21-25) mmol/L ABG Total CO2 (19-24) mmol/L ABG O2 Saturation (94-97) % Chloride (98-107) mmol/L BUN (7-17) mg/dL Glucose (74-99) mg/dL POC Glucose (mg/dL) 149 H (70-110) mg/dL Microbiology - Last 24 Hours (Table) 04/01/23 10:00 Gram Stain - Final Bronchial Washings - Left Bronchial Washings Culture - Final 03/29/23 06:13 Blood Culture - Final Blood Assessment and Plan Assessment: . Acute kidney injury secondary to hemodynamic ATN/shock. Creatinine 1.29 on admission and peaked at 2.43 this admission - 0.9 today. Nonoliguric. No hydronephrosis noted on kidney ultrasound. Left kidney not visualized. 2. Chronic kidney disease stage IIIa with baseline creatinine 1-1.2 secondary to nephrosclerosis/diabetic kidney disease. 3. History of hypercalcemia maintained on Sensipar. Sensipar was held as calcium was on the lower side but it increased to 10.2 with albumin 2.6 and Sensipar was restarted. 4. Acute blood loss anemia status post blood transfusions this admission. Hemoglobin 7.4 today. 5. Hyperkalemia secondary to acute kidney injury, hyperglycemia, acidosis and acute blood loss. Improved with medical management. 5.4 today. 6. Status post knee revision 03/28/2023. 7. Diabetes mellitus. 8. Questionable PE with severe pulmonary hypertension and moderate to severe tricuspid regurgitation. On heparin drip. 9. Lower extremity edema. 10. Hypernatremia from lack of oral water intake and free water diuresis. Plan: Check PTH Agree with diuresis Repeat Lasix in a.m. Repeat labs in a.m.
[2023-04-04 11:41] LABS: Glucose,Whole Blood 179 mg/dL (70-110)
--- NOTE | 2023-04-04 12:49 | P.PN ---
Subjective Progress Note Date: 04/04/23 On seeing the patient for the first time during this admission. He is referred to Dr. Michel's note for further details. It seems that the patient has possible PE versus a fat embolism. Patient has altered mental status and was felt due to toxic metabolic encephalopathy. Per the nurse patient remains to be unstable for imaging. Objective - Vital Signs Vital signs: Vital Signs Temp 99.9 F H 04/04/23 12:00 Pulse 96 04/04/23 12:14 Resp 32 H 04/04/23 12:00 BP 160/63 04/03/23 00:45 Pulse Ox 91 L 04/04/23 12:00 FiO2 50 04/04/23 12:00 Intake & Output 04/03/23 04/04/23 04/04/23 18:59 06:59 18:59 Intake Total 8537.688 3777.475 783.867 Output Total 1910 1040 1400 Balance -65.923 1233.475 -616.133 Weight 133.7 kg 133.7 kg Intake: IV 290 260 100 Piperacillin-Tazobactam 3 100 .375 gm In Sodium Chloride 0.9% 100 ml @ 25 mls/hr IVPB Q8HR [facility] Rx# :[id number] Sodium Chloride 0.9% 1, 190 260 100 000 ml @ 20 mls/hr IV . Q24H [facility] Rx#:[id number] Intake, IV Titration 576.077 706.475 238.867 Amount Clevidipine Butyrate 25 38.867 mg In Empty Bag 1 bag @ 1 MG/HR 2 mls/hr IV .Q24H [facility] Rx#:[id number] Heparin Sod,Pork in 0.45% 250 136.972 NaCl 25,000 unit In 0.45 % NaCl 1 250ml.bag @ 8.65 UNITS/KG/HR 10.005 mls/ hr IV .Q24H [facility] Rx#: [id number] propofoL 1,000 mg In 326.077 569.503 200.000 Empty Bag 1 bag @ 15 MCG/ KG/MIN 10.41 mls/hr IV . Q9H37M [facility] Rx#:[id number] Tube Feeding 348 377 145 Other 630 930 300 Output: Urine 1910 1040 1400 Other: Voiding Method Indwelling Catheter Indwelling Catheter Indwelling Catheter ABP, PAP, CO, CI - Last Documented Arterial Blood Pressure 140/48 - Exam GENERAL: The patient is lying in bed and is not in acute distress. Lung: Intubated on Vent. NEUROLOGICAL: Examination is limited because of condition and sedation. Is on IV Propofol 60mcg/kg/min (was on 75mcg/kg/min earlier) and on IV Cleviprex 7mg/hr. Higher mental function: Is comatose. GCS 3( E1, VT1, M1). Cranial nerves: I had to manually open her eyes. Primary gaze is midline. The pupils are round, equal and reactive to light. +ve corneal reflex bilaterally. -ve Occulocephalic reflex. Grimaces face with painful stimuli. Has weak gag reflex. Motor: The strength is hard to assess. No withdrawal noted to all extremities. Normal tone and bulk. Cerebellum: Unable to assess. Sensation: Unable to assess light touch. But to painful stimuli, grimaces face throughout. - Labs CBC & Chem 7: 04/04/23 06:03 04/04/23 06:03 Labs: Abnormal Lab Results - Last 24 Hours (Table) 04/03/23 04/03/23 04/04/23 Range/Units 18:05 23:38 06:03 RBC 2.59 L (3.80-5.40) m/uL Hgb 7.7 L (11.4-16.0) gm/dL Hct 23.8 L (34.0-46.0) % RDW 17.7 H (11.5-15.5) % Plt Count 80 L (150-450) k/uL Metamyelocytes # (Man) 0.32 H (0) k/uL Myelocytes # (Manual) 0.32 H (0) k/uL ABG HCO3 (21-25) mmol/L ABG Total CO2 (19-24) mmol/L ABG O2 Saturation (94-97) % Chloride (98-107) mmol/L BUN (7-17) mg/dL Glucose (74-99) mg/dL POC Glucose (mg/dL) 222 H 188 H (70-110) mg/dL 04/04/23 04/04/23 04/04/23 Range/Units 06:03 06:04 06:41 RBC (3.80-5.40) m/uL Hgb (11.4-16.0) gm/dL Hct (34.0-46.0) % RDW (11.5-15.5) % Plt Count (150-450) k/uL Metamyelocytes # (Man) (0) k/uL Myelocytes # (Manual) (0) k/uL ABG HCO3 30 H (21-25) mmol/L ABG Total CO2 31 H (19-24) mmol/L ABG O2 Saturation 98.4 H (94-97) % Chloride 108 H (98-107) mmol/L BUN 54 H (7-17) mg/dL Glucose 142 H (74-99) mg/dL POC Glucose (mg/dL) 149 H (70-110) mg/dL 04/04/23 Range/Units 11:39 RBC (3.80-5.40) m/uL Hgb (11.4-16.0) gm/dL Hct (34.0-46.0) % RDW (11.5-15.5) % Plt Count (150-450) k/uL Metamyelocytes # (Man) (0) k/uL Myelocytes # (Manual) (0) k/uL ABG HCO3 (21-25) mmol/L ABG Total CO2 (19-24) mmol/L ABG O2 Saturation (94-97) % Chloride (98-107) mmol/L BUN (7-17) mg/dL Glucose (74-99) mg/dL POC Glucose (mg/dL) 179 H (70-110) mg/dL Microbiology - Last 24 Hours (Table) 04/01/23 10:00 Gram Stain - Final Bronchial Washings - Left Bronchial Washings Culture - Final 03/29/23 06:13 Blood Culture - Final Blood Assessment and Plan Assessment: * Altered mental status, likely due to toxic metabolic encephalopathy. As well as some component of encephalopathy due to sedation induced (Propofol and Cleviprex) * Status post fall, with right femur fracture, status post surgery 03/28/2023 * Possible PE versus fat embolism, with subsequent significant hemodynamic instability, right heart strain * Acute severe blood loss anemia status post transfusion * Status post acute hypotensive shock from blood loss anemia * Acute kidney injury * COPD * Diabetes * Hyperlipidemia * Hypertension * Pneumonia * Obesity * X tobacco use * History of right knee arthroplasty in fall of 2021 Plan: * Pending EEG to evaluate for encephalopathy. * CT head, when able to be performed. At present patient is very unstable, not able to lay flat for any testing. * Medical management as per IM, critical care and other specialties The plan is discussed with the patient's daughter and ICU nurse. Time with Patient: Less than 30
--- NOTE | 2023-04-04 14:33 | P.PN ---
Progress Note - Text Progress Note Date: 04/04/23 - Chief Complaint Right leg injury History of presenting complaint: very pleasant 72-year-old patient of Dr. Persaud. Chronic stable medical conditions include diabetes, hyperlipidemia, hypertension, primary osteoarthritis, peripheral neuropathy, bilateral breast cancer with bilateral mastectomy, IBS, diverticulosis, chronic low back arthritis. Anxiety depression. Diagnosis of ulcerative colitis for about 15 years. On Asacol 800 mg 3 times a day. In November 2020 did undergo coloscopy by Dr. Moreno. Normal- appearing colon. Patient does follow with Dr. Angi Stallings. On an average has about 10 bowel movements a day. Present for years. Patient today was at the [facility]. Troponin went and fell down. Computed tomography scan showing a comminuted fracture distal metaphyseal femur adjacent to the knee processes. Some external rotation. Right lower extremity - brace. Patient's able to get about the house.. No chest pain or palpitation. March 27: Reclining bed. Pain control. Oral intake fair. Pending surgery tomorrow. Discussed with patient has would've the bedside. March 15: Patient seen by me this morning prior to surgery. In bed. Comfortable. Nothing by mouth. Pending surgery this afternoon. March 29: ICU. Yesterday patient underwent right revision total knee replacement the distal femoral replacement age for periprosthetic distal femur fracture. Estimated blood loss was about 600 mL. In the perioperative area patient blood pressure was running low. Patient was transferred to the ICU. Patient did receive 2 units of blood yesterday. Today patient is intubated. FiO2 85% and a PEEP of 10. Drips include we will affect, propofol, Nimbex. Patient started IV heparin for underlying suspicion of pulmonary embolism. Accu-Cheks running high has put on insulin drip. Oral gastric tube. Patient's and 2 daughters at the bedside. Discussed at length. Patient renal function also worsened. Hyperkalemia. Given bicarbonate. Being followed by airport security screener, nephrology. Another unit of blood pending. Hemoglobin this morning 6.7. Patient has increased right-sided heart pressures suspicious for therefore PE/fat embolism. March 30: ICU. Spiked a fever. Advair 250/50 5 and a PEEP of 8. On the ventilator. Sinus rhythm. Drips include Nimbex, propofol, IV heparin, IV insulin, IV norepinephrine. Right leg in a brace. IV ceftriaxone. March 31: ICU. On the ventilator. FiO2 45 PEEP of 5. 2 feeding at 30 mL an hour. Telemetry: Sinus rhythm. Drips include insulin, propofol, epinephrine, IV heparin. IV insulin. Cultures have been negative up to now. Remains in empirically on IV ceftriaxone. April 01: ICU. Patient underwent bronchoscopy by Dr. Babcock. 4 atelectasis on the chest x-ray. No rashes thick secretions removed from the left lower lobe. Likely mucous plugging. Currently on the ventilator with FiO2 100 a PEEP of 8. Sinus rhythm on the telemetry. Drips include IV levo fed, propofol, IV heparin, insulin. Having white secretions. IV ceftriaxone. Discussed with the patient's out of the bedside. Patient still remains critical. April 02: ICU. Overnight, last admin the nurse give medications through the OG tube medications came out through the mouth. 2 feeding was cutback. Started on a smaller rate. Remains on the ventilator. [place] to 65 and a PEEP of 12. Levo fed was discontinued yesterday afternoon. On propofol. IV heparin, IV insulin. April 03: ICU. Remains on the ventilator. FiO2 65 PEEP of 12. Patient is off propofol. Still remained lethargic. Neurology consulted. Also includes IV heparin drip. Family including father and 2 daughters at the bedside. G-tube feeding at goal. Discuss CODE STATUS with the family. Nurse called back later that they have decided to make the patient no code April 04: ICU. On the ventilator. FiO2 50 to PEEP of 12. Having a lot of thick and clear secretions through the ET tube. Remains lethargic. Code EEG done today. On cleviprex, propofol, IV heparin changed over to Lovenox subcu twice a day. and the daughter the bedside. Active Medications Hydrocodone Bitart/Acetaminophen (Hydrocodone/Apap 5-325mg 1 Each Tab) 1 each PO Q4HR PRN PRN Reason: Moderate Pain (Scale 4 to 6) Last Admin: 04/04/23 09:48 Dose: 1 each Albuterol/Ipratropium (Ipratropium-Albuterol 3 Ml Neb) 3 ml INHALATION RT-Q4H [facility] Last Admin: 04/04/23 11:42 Dose: 3 ml Aspirin (Aspirin 81 Mg) 81 mg PO BID [facility] Last Admin: 04/04/23 09:15 Dose: 81 mg Chlorhexidine Gluconate (Chlorhexidine Gluconate 15 Ml Cup) 15 ml MUCOUS MEM BID [facility] Last Admin: 04/04/23 09:49 Dose: 15 ml Cinacalcet (Cinacalcet 30 Mg Tab) 30 mg PO MoTh@0900 [facility] Last Admin: 04/04/23 09:16 Dose: 30 mg Dextrose/Water (Dextrose 50% Syringe 50 Ml) 25 ml IVP PER PROTOCOL PRN; Protocol PRN Reason: Hypoglycemia Dextrose/Water (Dextrose 50% Syringe 50 Ml) 50 ml IVP PER PROTOCOL PRN; Protocol PRN Reason: Hypoglycemia Enoxaparin Sodium (Enoxaparin 120 Mg/0.8 Ml Syringe) 120 mg SQ Q12HR [facility] Ferrous Sulfate (Ferrous Sulfate 325 Mg Tab) 325 mg PO DAILY [facility] Last Admin: 04/04/23 10:41 Dose: Not Given Fluoxetine HCl (Fluoxetine Hcl 20 Mg Cap) 40 mg PO DAILY [facility] Last Admin: 04/04/23 09:16 Dose: 40 mg Furosemide (Furosemide 10 Mg/Ml 4 Ml Vial) 40 mg IV Q12HR [facility] Propofol 1,000 mg/ IV Solution 100 mls @ 10.41 mls/hr IV .[id number] [facility]; Protocol Last Admin: 04/04/23 12:09 Dose: 55 mcg/kg/min, 38.17 mls/hr Norepinephrine Bitartrate 32 (mg/ Sodium Chloride) 250 mls @ 1.627 mls/hr IV .Q24H [facility]; Protocol Last Admin: 04/04/23 10:41 Dose: Not Given Sodium Chloride (Saline 0.9%) 1,000 mls @ 20 mls/hr IV .Q24H [facility] Last Admin: 04/04/23 04:53 Dose: 20 mls/hr Piperacillin Sod/Tazobactam (Sod 3.375 gm/ Sodium Chloride) 100 mls @ 25 mls/hr IVPB Q8HR [facility]; Protocol Last Admin: 04/04/23 09:14 Dose: 25 mls/hr Fentanyl Citrate 1,000 mcg/ (Sodium Chloride) 100 mls @ 6.745 mls/hr IV .[id number] [facility] Last Admin: 04/04/23 10:40 Dose: Not Given Clevidipine 25 mg/ IV Solution 50 mls @ 2 mls/hr IV .Q24H [facility]; Protocol Last Titration: 04/04/23 12:48 Dose: 0 mg/hr, 0 mls/hr Insulin Aspart (Insulin Aspart (Novolog) 100 Unit/Ml Vial) 0 unit SQ Q6H [facility]; Protocol Last Admin: 04/04/23 12:10 Dose: 3 unit Insulin Detemir (Insulin Detemir (Levemir) 100 Unit/Ml Syr) 48 unit SQ HS@1900 [facility] Last Admin: 04/03/23 18:23 Dose: 48 unit Lorazepam (Lorazepam 0.5 Mg Tab) 0.5 mg PO Q6HR PRN PRN Reason: Anxiety Last Admin: 04/01/23 05:03 Dose: 0.5 mg Metoprolol Tartrate (Metoprolol Tartrate 12.5 Mg Tab) 12.5 mg PO BID [facility] Last Admin: 04/04/23 09:48 Dose: 12.5 mg Miscellaneous Information (Potassium Replacement Protocol 1 Each Misc) 1 each MISCELLANE DAILY PRN; Protocol PRN Reason: Per Protocol Naloxone HCl (Naloxone 0.4 Mg/Ml 1 Ml Vial) 0.2 mg IV Q2M PRN PRN Reason: Opioid Reversal Olanzapine (Olanzapine 5 Mg Tab) 5 mg PO HS [facility] Last Admin: 04/03/23 20:34 Dose: 5 mg Ondansetron HCl (Ondansetron 4 Mg/2 Ml Vial) 4 mg IVP Q8HR PRN PRN Reason: Nausea And Vomiting Pantoprazole Sodium (Pantoprazole 40 Mg/10 Ml Vial) 40 mg IV DAILY [facility] Last Admin: 04/04/23 09:49 Dose: 40 mg Senna (Sennosides 8.6 Mg Tab) 8.6 mg PO BID [facility] Last Admin: 04/04/23 09:48 Dose: 8.6 mg Senna/Docusate Sodium (Sennosides-Docusate Sodium 1 Each Tab) 2 each PO HS [facility] Last Admin: 04/03/23 20:34 Dose: 2 each Past medical history to include: Diabetes mellitus type 2, hyperlipidemia, hypertension, osteoarthritis, peripheral neuropathy, bilateral breast cancer with bilateral mastectomies, ulcerative colitis-colonoscopy has shown normal colon and biopsy was negative., diverticulosis, chronic low back pain and arthritis, anxiety depression. COVID- 19 Social history: . Smoked for 41 years stopped in 2005. No alcohol Physical examination: VITAL SIGNS: 99.9, 96, 32, 140/48, 91% on ventilator GENERAL: , reclining intubated. OG tube EYES: Pupils equal. Conjunctiva normal. HEENT: External appearance of nose and ears normal, oral cavity OG tube NECK: JVD unable to assess; masses not palpable. HEART: First and second heart sounds are normal; edema present LUNGS: Respiratory rate increased, decreased breath sounds ABDOMEN: Soft, nontender, liver spleen not palpable, no masses palpable. PSYCH: Unable to assess MUSCULAR skeletal: Evidence of OA especially in the hands . Right lower extremity in a brace INVESTIGATIONS, reviewed in the clinical context: April 04: White count 10.5 hemoglobin 7.7 platelets 80 potassium 4.9 creatinine 0.99 March 30: White count 15.4 hemoglobin 8.8 platelets 298 potassium 3.6 BUN 53 creatinine 1.99 AST 1842 ALT 208 2-D echocardiogram: Moderate increased LVH. EF 50-55%. Severe right ventricle dilatation generalized right ventricle hypokinesis. Severe pulmonary hypertension. Moderate to severe tricuspid regurgitation. Ultrasound venous Doppler lower extremity: Limited views. No obvious DVT. Ultrasound kidney: Right kidney: Mild renal cortical thinning. Left kidney obscured. March 29: White count 20.6 hemoglobin 6.7 platelets 300 ABG: PH 7.13 pCO2 62. Potassium 5.1 BUN 40 creatinine 1.91 blood glucose 372 UA: Noted March 28: White count 9.1 hemoglobin 9.5 potassium 4.4 BUN 36 creatinine 1.37 White count 12.2 hemoglobin 11.5 platelets 510 sodium 140 potassium 4 BUN 34 creatinine 1.9 EKG tracing personally reviewed by me-normal sinus rhythm. Chest x-ray film personally reviewed by me-: Portable. No obvious infiltrate Knee x-ray/femur CT: Comminuted fracture distal metadiaphyseal femur adjacent to a knee processes. Displacement of the distal fracture fragment from the proximal fracture Assessment and plan: -Fall leading to acute Comminuted fracture distal metadiaphyseal femur adjacent to a knee processes. Displacement of the distal fracture fragment from the proximal fracture. March 28:right revision total knee replacement the distal femoral replacement age for periprosthetic distal femur fracture. By Dr. Stack. EBL 600 mL -Metabolic/anoxic encephalopathy. Rule out other causation. Neurology consulted. EEG pending -Mucous plugging with left lower lobe atelectasis. Status post bronchoscopy and removal of sticks tenacious secretions. 04/01/2023 -Acute severe blood loss anemia from surgery Patient received 3 units of blood -Hyperkalemia from acute kidney injury: Better -Thrombocytopenia IV heparin discontinued. Started on Lovenox -Acute cor pulmonale with underlying suspicious for fat embolism/pulmonary embolism with acute right ventricle dilatation and moderate to severe TR. -Acute hypotensive shock from blood loss anemia.: Better Receive 3 units of blood. IV levo fed discontinued -Acute kidney injury likely cardiorenal syndrome/ATN. From hypotension and anemia.: Better Follow with nephrology. Admission creatinine was 1.29. Peaked at 2.43. 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 / Amaryl. Increase Levemir to 48 units at night -Hyperlipidemia Lipitor, TriCor -Anxiety not otherwise specified Klonopin 0.5 mg 3 times a day -Depression Zyprexa 5 mg daily at bedtime, Prozac 40 mg a day -Hyperuricemia Allopurinol -Essential hypertension, currently hypotensive -Acute hepatitis likely ischemic, improvement -Primary osteoarthritis Pain medications when necessary -Chronic kidney disease stage III from diabetic nephropathy and hypertensive nephrosclerosis Follow renal function -DO NOT RESUSCITATE ICU. Critically ill. EEG pending IV Zosyn. Other medications to continue. Prognosis guarded.
[2023-04-04] MEDS: ARTIFICIAL TEARS-HYPROMELLOSE DROPS 15 ML BTL BOTH EYES SCH (15:19)
[2023-04-04 18:11] LABS: Glucose,Whole Blood 166 mg/dL (70-110)
[2023-04-04] MEDS: NYSTATIN 100,000 UNIT/ML SUSP 500,000 UNIT/5 ML CUP PO SCH ×2 (18:14→22:49)
[2023-04-04] MEDS: INSULIN DETEMIR (LEVEMIR) 100 UNIT/ML SYR SQ SCH (18:15)
[2023-04-04] MEDS: FUROSEMIDE 10 MG/ML 4 ML VIAL IV SCH (20:03)
[2023-04-04] MEDS: OLANZapine 5 MG TAB PO SCH (20:03)
[2023-04-04] MEDS: ENOXAPARIN 120 MG/0.8 ML SYRINGE SQ SCH (20:04)
[2023-04-04] MEDS: SENNOSIDES-DOCUSATE SODIUM 1 EACH TAB PO SCH (20:04)
--- NOTE | 2023-04-04 21:11 | EEG ---
ELECTROENCEPHALOGRAM REPORT CLINICAL HISTORY: This is a 72-year-old woman with altered mental status. The video EEG is obtained to evaluate for seizure epileptiform activity. RELEVANT MEDICATIONS: IV propofol and IV Cleviprex. EEG TYPE: A routine 21-channel EEG is performed with video using the 10/20 electrode placement system. DESCRIPTION: The patient is intubated on a ventilator. The background consists of [id number] voltage of 7-8 hertz activity. Also, at times the background consists of diffuse nonrhythmic delta intermixed with theta activity. There is no focal slowing. Interictal and ictal is none. ACTIVATION PROCEDURE: Photic stimulation did not evoke a posterior driving response. There is no abnormality during the photic stimulation. Hyperventilation is not performed. CLINICAL INTERPRETATION: This is an abnormal routine EEG. The background slowing is suggestive of mild to moderate encephalopathy. Otherwise, there is no focal slowing, epileptiform discharge, or seizure on the EEG. Clinical correlation is recommended. DEBBY / MAXIME: [id number] / MTDD
[2023-04-04] MEDS ORDERED: LACTULOSE 20 GM/30 ML CUP PO ONE (23:02)
[2023-04-04 23:47] LABS: Glucose,Whole Blood 154 mg/dL (70-110)
[2023-04-05] MEDS: IPRATROPIUM-ALBUTEROL 3 ML NEB INHALATION SCH ×6 (00:59→20:35)
[2023-04-05] MEDS: CLEVIDIPINE BUTYRATE 25 MG in EMPTY BAG 1 BAG IV SCH ×7 (01:32→19:15)
[2023-04-05] MEDS: SODIUM CHLORIDE 0.9% 80 ML with fentaNYL (PF) 1,000 MCG IV SCH ×4 (02:14→12:25)
[2023-04-05 05:40] LABS: Glucose,Whole Blood 165 mg/dL (70-110)
[2023-04-05 05:43] LABS: ABG Base Excess 7.2 mmol/L; ABG HCO3 31 mmol/L (21-25); ABG Oxygen Saturation 94.6 % (94-97); ABG PCO2 45 mmHg (35-45); ABG PH 7.45 (7.35-7.45); ABG PO2 68 mmHg (83-108); ABG TCO2 33 mmol/L (19-24); Allen Test Performed? Yes
[2023-04-05] MEDS: SODIUM CHLORIDE 0.9% 1,000 ML IV SCH (05:43)
--- NOTE | 2023-04-05 07:01 | XR ---
EXAMINATION TYPE: XR chest 1V portable DATE OF EXAM: 04/05/2023 Comparison: 04/04/2023 Clinical History: 72-year-old female mechanical ventilator Findings: ET tube tip is located 2.7 cm from the radha. NG tube courses below the diaphragm. Left subclavian C VC tip in the upper right atrium. Patient is rotated towards the left ultrasound and normal cardiac a nd mediastinal contours. Heart borderline in size. Hyperinflation. Small left pleural effusion with p rominent retrocardiac and left basilar opacity. Mild interstitial density. Impression: Fairly similar exam. COPD and possible mild pulmonary vascular congestion. There is a small left effu levon with prominent left basilar and retrocardiac atelectasis and/or infiltrate.
[2023-04-05] MEDS: INSULIN ASPART (NovoLOG) 100 UNIT/ML VIAL SQ SCH ×3 (07:06→18:14)
[2023-04-05 07:49] LABS: Anisocytosis Slight; HCT 24.9 % (34.0-46.0); HGB 7.9 gm/dL (11.4-16.0); Hypochromasia Moderate; MCH 29.3 pg (25.0-35.0); MCHC 31.8 g/dL (31.0-37.0); MCV 92.1 fL (80.0-100.0); Mean Platelet Volume 9.6; RDW 16.9 % (11.5-15.5)
[2023-04-05 07:54] LABS: Platelet Count 64 k/uL (150-450)
[2023-04-05 08:23] LABS: Calcium 9.3 mg/dL (8.4-10.2); Magnesium 1.5 mg/dL (1.6-2.3); Potassium 4.1 mmol/L (3.5-5.1)
[2023-04-05] MEDS: ASPIRIN 81 MG PO SCH ×2 (08:25→21:25)
[2023-04-05] MEDS: FLUoxetine HCL 20 MG CAP PO SCH (08:26)
[2023-04-05] MEDS: ENOXAPARIN 120 MG/0.8 ML SYRINGE SQ SCH (08:26)
[2023-04-05] MEDS: PANTOPRAZOLE 40 MG/10 ML VIAL IV SCH (08:26)
[2023-04-05] MEDS: CHLORHEXIDINE GLUCONATE 15 ML CUP MUCOUS MEM SCH ×2 (08:26→21:25)
[2023-04-05] MEDS: NYSTATIN 100,000 UNIT/ML SUSP 500,000 UNIT/5 ML CUP PO SCH ×4 (08:26→21:30)
[2023-04-05] MEDS: SENNOSIDES 8.6 MG TAB PO SCH ×2 (08:26→21:26)
[2023-04-05] MEDS: PIPERACILLIN-TAZOBACTAM 3.375 GM in SODIUM CHLORIDE 0.9% 100 ML IVPB SCH ×2 (08:27→16:30)
[2023-04-05] MEDS: FUROSEMIDE 10 MG/ML 4 ML VIAL IV SCH ×2 (08:27→21:26)
[2023-04-05] MEDS: METOPROLOL TARTRATE 25 MG TAB PO SCH ×2 (08:27→21:26)
[2023-04-05] MEDS: FERROUS SULFATE 325 MG TAB PO SCH (08:28)
[2023-04-05 09:32] LABS: Band Neutrophils % 2 %; Eosinophils # (M) 0.22 k/uL (0-0.7); Lymphocytes # (M) 2.13 k/uL (1.0-4.8); Metamyelocytes # (M) 0.34 k/uL (0); Metamyelocytes % 3 %; Monocytes # (M) 1.23 k/uL (0-1.0); Myelocytes # (M) 0.34 k/uL (0); Myelocytes % 3 %; Neutrophils % (M) 61 %; Nucleated Red Blood Cells 1 /100 WBC (0-0); Total Cells Counted 200; WBC 11.2 k/uL (3.8-10.6)
[2023-04-05 09:43] LABS: Polychromasia Present
[2023-04-05] MEDS ORDERED: Magnesium Replacement Protocol 1 EACH MISC MISCELLANE PRN (10:23)
--- NOTE | 2023-04-05 10:25 | P.PN ---
Subjective Progress Note Date: 04/05/23 Principal diagnosis: Respiratory failure. Patient was reevaluated today on 04/01/2023, remains in the ICU, intubated and mechanically ventilated. She is now on assist control rate of 32 tidal volume of 450 FiO2 45% and PEEP of 5 ABG showed a pO2 of 65 pCO2 43 pH of 7.34 hence Fi O2 was increased to 50%. Chest x-ray showed atelectasis of the left lower lobe as the patient underwent bronchoscopy today, and suction some tenacious secretions in the left lower lobe bronchus. No evidence of any other significant findings. Fluid obtained was sent for diagnostic studies. Patient remains on propofol at 20 mcg/kg/m she is also on heparin drip for presumptive pulmonary embolism she is receiving insulin at 5.3 units per hour norepinephrine at low-dose, however this was discontinued once the patient woke up and evaluated off propofol. Patient remains on Rocephin empirically, cultures have been negative so far. Awaiting cultures from the BAL of the left lower lobe today. Obviously the patient is not quite ready for weaning off propofol she was noted to be tachypneic, tachycardic, and her blood pressure was as high as 200 systolic. Hence no further weaning to be done today. And her ventilator settings will be adjusted accordingly after bronchoscopy and BAL. Labs today were reviewed she has a bit of leukocytosis with WBC count of 16.9 her PTT is therapeutic at 45.7 and electrolytes are normal BUN is down to 46 creatinine is down to 1.20 will continue to monitor heparin for now and monitor her renal status, may eventually recommend CT angiogram of the chest to confirm whether the patient had thromboembolic disease/pulmonary embolism. Pro calcitonin level was 1.91, nonetheless patient remains on Rocephin. So far urine cultures and blood cultures and sputum cultures have been negative Patient was reevaluated today on 04/02/2023, remains in the ICU, intubated and mechanically ventilated. Patient had a bit of a setback last night, apparently there was some issues with the nasogastric tube, and it was felt that the patient may have aspirated some of her feedings from the nasogastric tube, hence this tube was removed and another tube was placed, follow-up chest x-ray showed adequate placement of the orogastric tube. In the meantime the patient desat urated and she required increase in her FiO2. She went up as high as 75% PEEP was increased to 8 and today I recommended increasing the PEEP to 12 and FiO2 down to 65%. And advised titration. Chest x-ray continues to show left lower lobe consolidation. Right side seems to be relatively clear. ABG this morning showed a pO2 of 84 pCO2 51 pH of 7.39. Patient is on propofol at 50 mcg/kg/m she is also on insulin at 4.25 units per hour vital HPI 29 mL/h she is off norepinephrine. Considering the aspiration situation I recommended that we change antibiotics to Zosyn cultures from the BAL of the left lower lobe are pending. Her vent settings changed to assist control rate of 32 tidal volume 450 FiO2 65% and PEEP of 12. WBC count is 10.6 hemoglobin is 7.2 PTT is 35.6, electrolytes are normal BUN is 53 creatinine 1.[address] angiogram of the chest in the next 24-48 hours in the meantime the patient seems to be tolerating heparin well Reevaluated today on 04/03/2023, patient remains in the ICU, intubated and mechanically ventilated. Her assist-control rate is 3 to tidal volume is 450 FiO2 60% and I cut down today to 50% PEEP is at 12. Patient remains on propofol at 50 mcg/kg/m remains on heparin drip, she is also on vital HPI 29 mL per hour. Antibiotics aguirre remains on Zosyn, cultures have been negative along. Even though washing from the BAL of the left lower lobe remains nondiagnostic. ABG showed a pO2 of 108 pCO2 42 pH of 7.45 hence FiO2 was cut down from 60% to 50%. Patient has been off sedation, she does not seem to be appropriate, she opens her eyes, but does not follow any instructions, she seems to be confused, and encephalopathic. Hence I initiated a neurological consultation, I believe the patient may have sustained fat embolism to explain her mental status. Would like to have a CT of the brain and CT of the chest, however the patient cannot lay flat, and she desaturates significantly upon laying flat, hence we'll hold on both for now. Her urine output is excellent and she was given more Lasix a day. Her pain seems to be under control and her blood pressure seems to respond well to Dilaudid every 2 hours as needed. Considering her ABG is marginal and considering that the patient is requiring relatively high PEEP I am not yet ready to extubate the patient also concerned about her mental status. WBC count is 10.9 hemoglobin is 7.4. PTT is 53.6. BUN is 56 creatinine is 1.07. Considering CT angiogram of the chest but because of her inability to lay flat and she desaturates easily him holding on the CT angiogram of the chest for now. Progress note dated 04/04/2023. 72-year-old female admitted back on March 26. She had a fall and fractured her right femur. She went to the operating room on March 28, and was intubated on that day. She was thought to possibly have pulmonary embolism, or fat embolism syndrome. Because of her instability, she's not been able to go for a CT angiogram. Currently, she remains on the ventilator, at volume assist control, rate 32, , tidal volume 450, FiO2 50%, and PEEP of 12. Blood gases show pO2 of 91, pCO2 44, and pH is 7.44. She remains on propofol at 75 mcg/kg/m, IV heparin, 0.9 at KVO, and vital, at 23 mL an hour, which is goal. The nurse has a number of issues today and redressed some all. For her blood pressure elevation, we start her on Cleveprex, to be titrated slowly systolic blood pressures less than 160 and the mean is less than 100. We had backed the patien t's Toprol-XL. In addition, because of fluid retention, we'll give the patient Lasix 60 mg IV push. We will dose daily based on her I's and O's. We also will discontinue heparin, and started on Lovenox 120 mg subcu every 12 hours. This is because her platelet count has declined to 80,000. In addition, we will order that heparin-induced thrombocytopenia antibodies. White count 10.5, hemoglobin 7.7, hematocrit 23.8, and platelet count 80,000. Sodium 142, potassium 4.9, chlorides 108, CO2 28, BUN 54, creatinine 0.99. Microbiologic sampling has been negative. Chest x-ray shows changes of COPD, with a small left-sided pleural effusion, and retrocardiac atelectasis or consolidation. Progress note dated 04/05/2023. 72-year-old female admitted back on March 26. She had a fall and a fractured right femur. She went to the operating room on March 28, and was intubated on that day. She was thought to have possibly a pulmonary embolism, or fat embolism syndrome. Because of instability, the patient has not been able to go down for a CT angiogram. She did have Dopplers of the lower extremity that were negative. She remains on mechanical ventilator. She is on the volume assist control, rate 32, tidal volume 450, FiO2 50%, and a PEEP of 12. Arterial blood gases show pO2 of 68, pCO2 45, and a pH is 7.45. The patient remains on Cleveprex at 4 mg an hour, propofol at 50 mcg/kg/m, saline at 10 mL an hour, and vital, at 29 mL an hour, which is goal. White count 11.2, hemoglobin 7.9, hematocrit 24.9, and platelet count 64,000. Sodium 139, potassium 4.1, chlorides 104, CO2 29, BUN 49, and creatinine 0.95. Glucose 168. Microbiologic data is negative. Chest x-rays consistent with mild fluid overload. There may be some basilar infiltrates or atelectasis. Objective - Vital Signs Vital signs: Vital Signs Temp 99.4 F 04/05/23 04:00 Pulse 88 04/05/23 08:10 Resp 32 H 04/05/23 07:00 BP 160/63 04/05/23 05:30 Pulse Ox 93 L 04/05/23 07:00 FiO2 50 04/05/23 08:07 Intake & Output 04/04/23 04/05/23 04/05/23 18:59 06:59 18:59 Intake Total 2183.799 5482.330 817.867 Output Total 2925 2125 800 Balance -1074.888 -250.670 17.867 Weight 133.7 kg 124.7 kg Intake: IV 200 230 150 Piperacillin-Tazobactam 3 100 .375 gm In Sodium Chloride 0.9% 100 ml @ 25 mls/hr IVPB Q8HR [facility] Rx# :[id number] Sodium Chloride 0.9% 1, 200 230 50 000 ml @ 20 mls/hr IV . Q24H [facility] Rx#:[id number] Intake, IV Titration 431.112 626.330 251.867 Amount Clevidipine Butyrate 25 98.667 256.300 51.867 mg In Empty Bag 1 bag @ 1 MG/HR 2 mls/hr IV .Q24H [facility] Rx#:[id number] propofoL 1,000 mg In 332.445 370.030 200 Empty Bag 1 bag @ 15 MCG/ KG/MIN 10.41 mls/hr IV . Q9H37M [facility] Rx#:[id number] Oral 0 Tube Feeding 319 348 116 Other 900 670 300 Output: Urine 2925 2125 800 Other: Voiding Method Indwelling Catheter Indwelling Catheter Indwelling Catheter ABP, PAP, CO, CI - Last Documented Arterial Blood Pressure 142/42 - Exam No acute distress, sedated, with an orally placed endotracheal tube and NG tube. HEENT examination is grossly unremarkable. Neck supple. Full range of motion. No adenopathy thyromegaly or neck vein distention. Cardiovascular examination reveals regular rhythm rate. S1-S2 normal. No S3 or S4. No discernible murmur noted. Heart sounds are distant. Heart rate 85 bpm. Lungs reveal scattered bilateral rhonchi. No wheezes or crackles. Breath sounds equal. Saturation is 94% Abdomen obese, with bowel sounds. Extremities are intact. No cyanosis or clubbing. There is diffuse edema and anasarca. Skin is without rash or lesion. Neurologic examination cannot be adequately assessed at this time. - Labs CBC & Chem 7: 04/05/23 07:30 04/05/23 07:30 Labs: Abnormal Lab Results - Last 24 Hours (Table) 04/04/23 04/04/23 04/04/23 Range/Units 09:30 11:39 18:10 WBC (3.8-10.6) k/uL RBC (3.80-5.40) m/uL Hgb (11.4-16.0) gm/dL Hct (34.0-46.0) % RDW (11.5-15.5) % Plt Count (150-450) k/uL Monocytes # (Manual) (0-1.0) k/uL Metamyelocytes # (Man) (0) k/uL Myelocytes # (Manual) (0) k/uL Nucleated RBCs (0-0) /100 WBC ABG pO2 (83-108) mmHg ABG HCO3 (21-25) mmol/L ABG Total CO2 (19-24) mmol/L BUN (7-17) mg/dL Glucose (74-99) mg/dL POC Glucose (mg/dL) 179 H 166 H (70-110) mg/dL Magnesium (1.6-2.3) mg/dL Procalcitonin 0.71 H (0.02-0.09) ng/mL 04/04/23 04/05/23 04/05/23 Range/Units 23:44 05:38 05:40 WBC (3.8-10.6) k/uL RBC (3.80-5.40) m/uL Hgb (11.4-16.0) gm/dL Hct (34.0-46.0) % RDW (11.5-15.5) % Plt Count (150-450) k/uL Monocytes # (Manual) (0-1.0) k/uL Metamyelocytes # (Man) (0) k/uL Myelocytes # (Manual) (0) k/uL Nucleated RBCs (0-0) /100 WBC ABG pO2 68 L (83-108) mmHg ABG HCO3 31 H (21-25) mmol/L ABG Total CO2 33 H (19-24) mmol/L BUN (7-17) mg/dL Glucose (74-99) mg/dL POC Glucose (mg/dL) 154 H 165 H (70-110) mg/dL Magnesium (1.6-2.3) mg/dL Procalcitonin (0.02-0.09) ng/mL 04/05/23 04/05/23 Range/Units 07:30 07:30 WBC 11.2 H (3.8-10.6) k/uL RBC 2.70 L (3.80-5.40) m/uL Hgb 7.9 L (11.4-16.0) gm/dL Hct 24.9 L (34.0-46.0) % RDW 16.9 H (11.5-15.5) % Plt Count 64 L (150-450) k/uL Monocytes # (Manual) 1.23 H (0-1.0) k/uL Metamyelocytes # (Man) 0.34 H (0) k/uL Myelocytes # (Manual) 0.34 H (0) k/uL Nucleated RBCs 1 H (0-0) /100 WBC ABG pO2 (83-108) mmHg ABG HCO3 (21-25) mmol/L ABG Total CO2 (19-24) mmol/L BUN 49 H (7-17) mg/dL Glucose 168 H (74-99) mg/dL POC Glucose (mg/dL) (70-110) mg/dL Magnesium 1.5 L (1.6-2.3) mg/dL Procalcitonin (0.02-0.09) ng/mL Microbiology - Last 24 Hours (Table) 04/01/23 10:00 Gram Stain - Final Bronchial Washings - Left Bronchial Washings Culture - Final Assessment and Plan Assessment: Acute hypoxemic and hypercapnic respiratory failure, possibly secondary to pulmonary embolism, or fat embolism syndrome. Status post intubation and mechanical ventilation, beginning on March 28. Postop day #8, status post repair of comminuted right femur fracture. Hypotension, which may relate to PE, or FES. Acute kidney injury. Rule out heparin-induced thrombocytopenia. Acute blood loss anemia. Lactic acidemia secondary to hypotension and hypoperfusion. Shock liver. Previous right total knee replacement. Morbid obesity. History of obstructive sleep apnea syndrome. Previous history of tobacco use. Left lower lobe atelectasis versus pneumonia. Status post bronchoscopy and BAL, postop day #4. Mental status changes, likely related to metabolic encephalopathy. Plan: Plan dated 04/04/2023. The patient is started back on Toprol, which she was taking as an outpatient, and we also added IV Cleveprex, is a dihydropyridine calcium channel alisha, for better blood pressure support. I put targets of systolics less than 160, and mean arterial pressures of less than 100 to the nurse. The patient will get Lasix 60 mg IV push once. We'll DC the IV heparin in favor of Lovenox 120 mg subcu every 12 hours. HIT antibodies are ordered. Labs, x-rays, medications are all reviewed. We will continue to follow make recommendations along the way. Prognosis is guarded. Plan dated 04/05/2023. The patient's blood pressure is under better control. The patient continues on Cleveprex, and propofol. I attempted to call the , Khoa, but he did not hand picker the phone. The nurse will restart the family. Labs, x-rays, medications are all reviewed. The patient was intubated on March 28. Because of relatively higher FiO2's, and PEEP levels, the patient is not a candidate for extubation. By the end of the week, the patient is to continue as a full code, we'll talk to the family about tracheostomy and PEG tube placement. Prognosis is certainly guarded. We will continue to follow the platelet count. She was switched from heparin to low molecular weight heparin yesterday. Time with Patient: Greater than 30
--- NOTE | 2023-04-05 10:59 | P.PN ---
Subjective Progress Note Date: 04/05/23 This patient is a 72- year old female who is status-post right revision distal femoral replacing hinge for comminuted periprosthetic distal femur fracture on 03/28/23. Today is post-operative day #1. Patient is examined bedside in the ICU with Dr. Stack. Patient remains intubated. Patient has received 2 units of PRBCs post- op, hemoglobin has resulted as 6.7 this morning, therefore an additional unit of PRBCs has been ordered. Arterial line has been placed. Nephrology has been consulted due to hyperkalemia and acute kidney injury. Doppler ultrasound of the bilateral lower extremities has been obtained this morning, which showed no acute DVT although was relatively non-diagnostic in some areas due to body habitus. Heparin drip has been initiated per Dr. Babcock. 04/01/23: Today is post-operative day #8. Patient is examined bedside this morning. She remains intubated and sedated in the ICU. Per nursing she is not a candidate for an attempt at extubation at this time. Patient was switched to Lovenox yesterday due to low platelets. No acute events overnight. Objective - Vital Signs Vital signs: Vital Signs Temp 99.3 F 04/05/23 08:00 Pulse 85 04/05/23 10:15 Resp 32 H 04/05/23 10:15 BP 160/63 04/05/23 05:30 Pulse Ox 94 L 04/05/23 10:15 FiO2 50 04/05/23 08:07 Intake & Output 04/04/23 04/05/23 04/05/23 18:59 06:59 18:59 Intake Total 1316.244 6107.330 817.867 Output Total 2925 2125 800 Balance -1074.888 -250.670 17.867 Weight 133.7 kg 124.7 kg Intake: IV 200 230 150 Piperacillin-Tazobactam 3 100 .375 gm In Sodium Chloride 0.9% 100 ml @ 25 mls/hr IVPB Q8HR [facility] Rx# :[id number] Sodium Chloride 0.9% 1, 200 230 50 000 ml @ 20 mls/hr IV . Q24H [facility] Rx#:[id number] Intake, IV Titration 431.112 626.330 251.867 Amount Clevidipine Butyrate 25 98.667 256.300 51.867 mg In Empty Bag 1 bag @ 1 MG/HR 2 mls/hr IV .Q24H [facility] Rx#:[id number] propofoL 1,000 mg In 332.445 370.030 200 Empty Bag 1 bag @ 15 MCG/ KG/MIN 10.41 mls/hr IV . Q9H37M [facility] Rx#:[id number] Oral 0 Tube Feeding 319 348 116 Other 900 670 300 Output: Urine 2925 2125 800 Other: Voiding Method Indwelling Catheter Indwelling Catheter Indwelling Catheter ABP, PAP, CO, CI - Last Documented Arterial Blood Pressure 155/50 - Exam On examination, patient is intubated. On inspection of the right knee, knee immobilizer in place, Prevena wound vac in place that has a good seal at this time. There is moderate swelling of the knee. The right lower extremity is warm and well perfused. Dorsalis pedis pulse easily palpable. - Labs CBC & Chem 7: 04/05/23 07:30 04/05/23 07:30 Labs: Abnormal Lab Results - Last 24 Hours (Table) 04/04/23 04/04/23 04/04/23 Range/Units 09:30 11:39 18:10 WBC (3.8-10.6) k/uL RBC (3.80-5.40) m/uL Hgb (11.4-16.0) gm/dL Hct (34.0-46.0) % RDW (11.5-15.5) % Plt Count (150-450) k/uL Monocytes # (Manual) (0-1.0) k/uL Metamyelocytes # (Man) (0) k/uL Myelocytes # (Manual) (0) k/uL Nucleated RBCs (0-0) /100 WBC ABG pO2 (83-108) mmHg ABG HCO3 (21-25) mmol/L ABG Total CO2 (19-24) mmol/L BUN (7-17) mg/dL Glucose (74-99) mg/dL POC Glucose (mg/dL) 179 H 166 H (70-110) mg/dL Magnesium (1.6-2.3) mg/dL Procalcitonin 0.71 H (0.02-0.09) ng/mL 04/04/23 04/05/23 04/05/23 Range/Units 23:44 05:38 05:40 WBC (3.8-10.6) k/uL RBC (3.80-5.40) m/uL Hgb (11.4-16.0) gm/dL Hct (34.0-46.0) % RDW (11.5-15.5) % Plt Count (150-450) k/uL Monocytes # (Manual) (0-1.0) k/uL Metamyelocytes # (Man) (0) k/uL Myelocytes # (Manual) (0) k/uL Nucleated RBCs (0-0) /100 WBC ABG pO2 68 L (83-108) mmHg ABG HCO3 31 H (21-25) mmol/L ABG Total CO2 33 H (19-24) mmol/L BUN (7-17) mg/dL Glucose (74-99) mg/dL POC Glucose (mg/dL) 154 H 165 H (70-110) mg/dL Magnesium (1.6-2.3) mg/dL Procalcitonin (0.02-0.09) ng/mL 04/05/23 04/05/23 Range/Units 07:30 07:30 WBC 11.2 H (3.8-10.6) k/uL RBC 2.70 L (3.80-5.40) m/uL Hgb 7.9 L (11.4-16.0) gm/dL Hct 24.9 L (34.0-46.0) % RDW 16.9 H (11.5-15.5) % Plt Count 64 L (150-450) k/uL Monocytes # (Manual) 1.23 H (0-1.0) k/uL Metamyelocytes # (Man) 0.34 H (0) k/uL Myelocytes # (Manual) 0.34 H (0) k/uL Nucleated RBCs 1 H (0-0) /100 WBC ABG pO2 (83-108) mmHg ABG HCO3 (21-25) mmol/L ABG Total CO2 (19-24) mmol/L BUN 49 H (7-17) mg/dL Glucose 168 H (74-99) mg/dL POC Glucose (mg/dL) (70-110) mg/dL Magnesium 1.5 L (1.6-2.3) mg/dL Procalcitonin (0.02-0.09) ng/mL Microbiology - Last 24 Hours (Table) 04/01/23 10:00 Gram Stain - Final Bronchial Washings - Left Bronchial Washings Culture - Final Assessment and Plan Assessment: Status-post right revision distal femoral replacing hinge for comminuted periprosthetic distal femur fracture on 03/28/23. Post-op day #8. Plan: - Patient remains intubated. Appreciate medical and ICU management per multiple medical specialities including pulmonology/critical care, nephrology, internal medicine, neurology. - There are no plans for extubation at this time per nursing. Keep Prevena wound vac in place. Do not remove. - We will continue to follow patient very closely.
[2023-04-05 11:08] LABS: ABG Base Excess 7.6 mmol/L; ABG HCO3 31 mmol/L (21-25); ABG Oxygen Saturation 96.2 % (94-97); ABG PCO2 44 mmHg (35-45); ABG PH 7.46 (7.35-7.45); ABG PO2 77 mmHg (83-108); ABG TCO2 33 mmol/L (19-24); Allen Test Performed? Yes
--- NOTE | 2023-04-05 11:21 | P.PN ---
Subjective Patient is seen for follow-up for acute kidney injury and top of chronic kidney disease. Renal function has improved significantly. Serum creatinine down to 0.89 mg/dL. Urine output at 150-200 mL an hour. Started IV Lasix yesterday Maintained on Cleviprex drip for hypertension Objective - Vital Signs Vital signs: Vital Signs Temp 99.3 F 04/05/23 08:00 Pulse 85 04/05/23 10:15 Resp 32 H 04/05/23 10:15 BP 160/63 04/05/23 05:30 Pulse Ox 94 L 04/05/23 10:15 FiO2 50 04/05/23 08:07 Intake & Output 04/04/23 04/05/23 04/05/23 18:59 06:59 18:59 Intake Total 7287.193 7233.330 856.867 Output Total 2925 2125 1150 Balance -1074.888 -250.670 -293.133 Weight 133.7 kg 124.7 kg Intake: IV 200 230 160 Piperacillin-Tazobactam 3 100 .375 gm In Sodium Chloride 0.9% 100 ml @ 25 mls/hr IVPB Q8HR [facility] Rx# :[id number] Sodium Chloride 0.9% 1, 200 230 60 000 ml @ 20 mls/hr IV . Q24H [facility] Rx#:[id number] Intake, IV Titration 431.112 626.330 251.867 Amount Clevidipine Butyrate 25 98.667 256.300 51.867 mg In Empty Bag 1 bag @ 1 MG/HR 2 mls/hr IV .Q24H [facility] Rx#:[id number] propofoL 1,000 mg In 332.445 370.030 200 Empty Bag 1 bag @ 15 MCG/ KG/MIN 10.41 mls/hr IV . Q9H37M [facility] Rx#:[id number] Oral 0 Tube Feeding 319 348 145 Other 900 670 300 Output: Urine 2925 2125 1150 Other: Voiding Method Indwelling Catheter Indwelling Catheter Indwelling Catheter ABP, PAP, CO, CI - Last Documented Arterial Blood Pressure 155/50 - Exam Patient is intubated and on the vent FiO2 at 50% Examination of the heart S1 and S2 Examination of the lungs bilateral breath sounds are heard Abdomen is soft obese Examination of lower extremities shows edema 2+ bilaterally upper and lower extremities - Labs CBC & Chem 7: 04/05/23 07:30 04/05/23 07:30 Labs: Abnormal Lab Results - Last 24 Hours (Table) 04/04/23 04/04/23 04/04/23 Range/Units 09:30 11:39 18:10 WBC (3.8-10.6) k/uL RBC (3.80-5.40) m/uL Hgb (11.4-16.0) gm/dL Hct (34.0-46.0) % RDW (11.5-15.5) % Plt Count (150-450) k/uL Monocytes # (Manual) (0-1.0) k/uL Metamyelocytes # (Man) (0) k/uL Myelocytes # (Manual) (0) k/uL Nucleated RBCs (0-0) /100 WBC ABG pH (7.35-7.45) ABG pO2 (83-108) mmHg ABG HCO3 (21-25) mmol/L ABG Total CO2 (19-24) mmol/L BUN (7-17) mg/dL Glucose (74-99) mg/dL POC Glucose (mg/dL) 179 H 166 H (70-110) mg/dL Magnesium (1.6-2.3) mg/dL Procalcitonin 0.71 H (0.02-0.09) ng/mL 04/04/23 04/05/23 04/05/23 Range/Units 23:44 05:38 05:40 WBC (3.8-10.6) k/uL RBC (3.80-5.40) m/uL Hgb (11.4-16.0) gm/dL Hct (34.0-46.0) % RDW (11.5-15.5) % Plt Count (150-450) k/uL Monocytes # (Manual) (0-1.0) k/uL Metamyelocytes # (Man) (0) k/uL Myelocytes # (Manual) (0) k/uL Nucleated RBCs (0-0) /100 WBC ABG pH (7.35-7.45) ABG pO2 68 L (83-108) mmHg ABG HCO3 31 H (21-25) mmol/L ABG Total CO2 33 H (19-24) mmol/L BUN (7-17) mg/dL Glucose (74-99) mg/dL POC Glucose (mg/dL) 154 H 165 H (70-110) mg/dL Magnesium (1.6-2.3) mg/dL Procalcitonin (0.02-0.09) ng/mL 04/05/23 04/05/23 04/05/23 Range/Units 07:30 07:30 11:04 WBC 11.2 H (3.8-10.6) k/uL RBC 2.70 L (3.80-5.40) m/uL Hgb 7.9 L (11.4-16.0) gm/dL Hct 24.9 L (34.0-46.0) % RDW 16.9 H (11.5-15.5) % Plt Count 64 L (150-450) k/uL Monocytes # (Manual) 1.23 H (0-1.0) k/uL Metamyelocytes # (Man) 0.34 H (0) k/uL Myelocytes # (Manual) 0.34 H (0) k/uL Nucleated RBCs 1 H (0-0) /100 WBC ABG pH 7.46 H (7.35-7.45) ABG pO2 77 L (83-108) mmHg ABG HCO3 31 H (21-25) mmol/L ABG Total CO2 33 H (19-24) mmol/L BUN 49 H (7-17) mg/dL Glucose 168 H (74-99) mg/dL POC Glucose (mg/dL) (70-110) mg/dL Magnesium 1.5 L (1.6-2.3) mg/dL Procalcitonin (0.02-0.09) ng/mL Microbiology - Last 24 Hours (Table) 04/01/23 10:00 Gram Stain - Final Bronchial Washings - Left Bronchial Washings Culture - Final Assessment and Plan Assessment: . Acute kidney injury secondary to hemodynamic ATN/shock. Creatinine 1.29 on admission and peaked at 2.43 this admission - 0.9 today. Nonoliguric. No hydronephrosis noted on kidney ultrasound. Left kidney not visualized. 2. Chronic kidney disease stage IIIa with baseline creatinine 1-1.2 secondary to nephrosclerosis/diabetic kidney disease. 3. History of hypercalcemia maintained on Sensipar. Sensipar was held as calcium was on the lower side but it increased to 10.2 with albumin 2.6 and Sensipar was restarted. Calcium 9.3 today 4. Acute blood loss anemia status post blood transfusions this admission. 5. Hyperkalemia secondary to acute kidney injury, hyperglycemia, acidosis and acute blood loss. Improved 6. Status post knee revision 03/28/2023. 7. Diabetes mellitus. 8. Questionable PE with severe pulmonary hypertension and moderate to severe tricuspid regurgitation. On heparin drip. 9. Lower extremity edema. 10. Hypernatremia from lack of oral water intake and free water deficit Plan: Continue to diurese patient Give extra dose of IV Lasix today Decrease free water down feeding tube Repeat labs in a.m. Add amlodipine 2.5 mg daily and increase as tolerated and try to wean down Cleviprex drip. Metoprolol was also increased today
[2023-04-05 11:34] LABS: Glucose,Whole Blood 207 mg/dL (70-110)
[2023-04-05] MEDS: MAGNESIUM SULFATE-D5W PMX 1 GM in DEXTROSE/WATER 1 100ML.BAG IVPB SCH ×2 (12:17→13:38)
[2023-04-05] MEDS: amLODIPine 2.5 MG TAB PO SCH (12:18)
[2023-04-05] MEDS ORDERED: FUROSEMIDE 10 MG/ML 4 ML VIAL IV ONE (13:00)
[2023-04-05] MEDS: HYDROcodone/APAP 5-325MG 1 EACH TAB PO PRN (13:54)
--- NOTE | 2023-04-05 14:33 | P.PN ---
Progress Note - Text Progress Note Date: 04/05/23 - Chief Complaint Right leg injury History of presenting complaint: very pleasant 72-year-old patient of Dr. Persaud. Chronic stable medical conditions include diabetes, hyperlipidemia, hypertension, primary osteoarthritis, peripheral neuropathy, bilateral breast cancer with bilateral mastectomy, IBS, diverticulosis, chronic low back arthritis. Anxiety depression. Diagnosis of ulcerative colitis for about 15 years. On Asacol 800 mg 3 times a day. In November 2020 did undergo coloscopy by Dr. Moreno. Normal- appearing colon. Patient does follow with Dr. Angi Stallings. On an average has about 10 bowel movements a day. Present for years. Patient today was at the [facility]. Troponin went and fell down. Computed tomography scan showing a comminuted fracture distal metaphyseal femur adjacent to the knee processes. Some external rotation. Right lower extremity - brace. Patient's able to get about the house.. No chest pain or palpitation. March 27: Reclining bed. Pain control. Oral intake fair. Pending surgery tomorrow. Discussed with patient has would've the bedside. March 15: Patient seen by me this morning prior to surgery. In bed. Comfortable. Nothing by mouth. Pending surgery this afternoon. March 29: ICU. Yesterday patient underwent right revision total knee replacement the distal femoral replacement age for periprosthetic distal femur fracture. Estimated blood loss was about 600 mL. In the perioperative area patient blood pressure was running low. Patient was transferred to the ICU. Patient did receive 2 units of blood yesterday. Today patient is intubated. FiO2 85% and a PEEP of 10. Drips include we will affect, propofol, Nimbex. Patient started IV heparin for underlying suspicion of pulmonary embolism. Accu-Cheks running high has put on insulin drip. Oral gastric tube. Patient's and 2 daughters at the bedside. Discussed at length. Patient renal function also worsened. Hyperkalemia. Given bicarbonate. Being followed by fishing gear mechanic, nephrology. Another unit of blood pending. Hemoglobin this morning 6.7. Patient has increased right-sided heart pressures suspicious for therefore PE/fat embolism. March 30: ICU. Spiked a fever. Advair 250/50 5 and a PEEP of 8. On the ventilator. Sinus rhythm. Drips include Nimbex, propofol, IV heparin, IV insulin, IV norepinephrine. Right leg in a brace. IV ceftriaxone. March 31: ICU. On the ventilator. FiO2 45 PEEP of 5. 2 feeding at 30 mL an hour. Telemetry: Sinus rhythm. Drips include insulin, propofol, epinephrine, IV heparin. IV insulin. Cultures have been negative up to now. Remains in empirically on IV ceftriaxone. April 01: ICU. Patient underwent bronchoscopy by Dr. Babcock. 4 atelectasis on the chest x-ray. No rashes thick secretions removed from the left lower lobe. Likely mucous plugging. Currently on the ventilator with FiO2 100 a PEEP of 8. Sinus rhythm on the telemetry. Drips include IV levo fed, propofol, IV heparin, insulin. Having white secretions. IV ceftriaxone. Discussed with the patient's out of the bedside. Patient still remains critical. April 02: ICU. Overnight, last admin the nurse give medications through the OG tube medications came out through the mouth. 2 feeding was cutback. Started on a smaller rate. Remains on the ventilator. [place] to 65 and a PEEP of 12. Levo fed was discontinued yesterday afternoon. On propofol. IV heparin, IV insulin. April 03: ICU. Remains on the ventilator. FiO2 65 PEEP of 12. Patient is off propofol. Still remained lethargic. Neurology consulted. Also includes IV heparin drip. Family including father and 2 daughters at the bedside. G-tube feeding at goal. Discuss CODE STATUS with the family. Nurse called back later that they have decided to make the patient no code April 04: ICU. On the ventilator. FiO2 50 to PEEP of 12. Having a lot of thick and clear secretions through the ET tube. Remains lethargic. Code EEG done today. On cleviprex, propofol, IV heparin changed over to Lovenox subcu twice a day. and the daughter the bedside. April 05: ICU. Ventilator. FiO2 40 PEEP of 12. Drips include cleviprex and propofol. Secretions through the G-tube. Getting 2 feeding. Discussed with the 2 daughters at the bedside. HEENT negative for seizure activity. Shows encephalopathy. Patient positive for heparin-induced platelet antibody. Consult hematology Active Medications Hydrocodone Bitart/Acetaminophen (Hydrocodone/Apap 5-325mg 1 Each Tab) 1 each PO Q4HR PRN PRN Reason: Moderate Pain (Scale 4 to 6) Last Admin: 04/05/23 13:54 Dose: 1 each Albuterol/Ipratropium (Ipratropium-Albuterol 3 Ml Neb) 3 ml INHALATION RT-Q4H [facility] Last Admin: 04/05/23 11:45 Dose: 3 ml Amlodipine Besylate (Amlodipine 2.5 Mg Tab) 2.5 mg PO DAILY [facility] Last Admin: 04/05/23 12:18 Dose: 2.5 mg Aspirin (Aspirin 81 Mg) 81 mg PO BID [facility] Last Admin: 04/05/23 08:25 Dose: Not Given Chlorhexidine Gluconate (Chlorhexidine Gluconate 15 Ml Cup) 15 ml MUCOUS MEM BID [facility] Last Admin: 04/05/23 08:26 Dose: 15 ml Cinacalcet (Cinacalcet 30 Mg Tab) 30 mg PO MoTh@0900 [facility] Last Admin: 04/04/23 09:16 Dose: 30 mg Dextrose/Water (Dextrose 50% Syringe 50 Ml) 25 ml IVP PER PROTOCOL PRN; Protocol PRN Reason: Hypoglycemia Dextrose/Water (Dextrose 50% Syringe 50 Ml) 50 ml IVP PER PROTOCOL PRN; Protocol PRN Reason: Hypoglycemia Enoxaparin Sodium (Enoxaparin 120 Mg/0.8 Ml Syringe) 120 mg SQ Q12HR [facility] Last Admin: 04/05/23 08:26 Dose: 120 mg Ferrous Sulfate (Ferrous Sulfate 325 Mg Tab) 325 mg PO DAILY [facility] Last Admin: 04/05/23 08:28 Dose: Not Given Fluoxetine HCl (Fluoxetine Hcl 20 Mg Cap) 40 mg PO DAILY [facility] Last Admin: 04/05/23 08:26 Dose: 40 mg Furosemide (Furosemide 10 Mg/Ml 4 Ml Vial) 40 mg IV Q12HR [facility] Last Admin: 04/05/23 08:27 Dose: 40 mg Propofol 1,000 mg/ IV Solution 100 mls @ 10.41 mls/hr IV .Q9H37M [facility]; Protocol Last Admin: 04/05/23 13:53 Dose: 40 mcg/kg/min, 27.76 mls/hr Sodium Chloride (Saline 0.9%) 1,000 mls @ 20 mls/hr IV .Q24H [facility] Last Admin: 04/05/23 05:43 Dose: 20 mls/hr Piperacillin Sod/Tazobactam (Sod 3.375 gm/ Sodium Chloride) 100 mls @ 25 mls/hr IVPB Q8HR [facility]; Protocol Last Admin: 04/05/23 08:27 Dose: 25 mls/hr Fentanyl Citrate 1,000 mcg/ (Sodium Chloride) 100 mls @ 6.745 mls/hr IV .H26L12M [facility] Last Admin: 04/05/23 12:25 Dose: Not Given Clevidipine 25 mg/ IV Solution 50 mls @ 2 mls/hr IV .Q24H [facility]; Protocol Last Admin: 04/05/23 10:05 Dose: 5 mg/hr, 10 mls/hr Insulin Aspart (Insulin Aspart (Novolog) 100 Unit/Ml Vial) 0 unit SQ Q6H [facility]; Protocol Last Admin: 04/05/23 12:25 Dose: 6 unit Insulin Detemir (Insulin Detemir (Levemir) 100 Unit/Ml Syr) 48 unit SQ HS@1900 [facility] Last Admin: 04/04/23 18:15 Dose: 48 unit Lorazepam (Lorazepam 0.5 Mg Tab) 0.5 mg PO Q6HR PRN PRN Reason: Anxiety Last Admin: 04/01/23 05:03 Dose: 0.5 mg Metoprolol Tartrate (Metoprolol Tartrate 25 Mg Tab) 25 mg PO BID [facility] Last Admin: 04/05/23 08:27 Dose: 25 mg Miscellaneous Information (Potassium Replacement Protocol 1 Each Misc) 1 each MISCELLANE DAILY PRN; Protocol PRN Reason: Per Protocol Miscellaneous Information (Magnesium Replacement Protocol 1 Each Misc) 1 each MISCELLANE DAILY PRN; Protocol PRN Reason: Per Protocol Naloxone HCl (Naloxone 0.4 Mg/Ml 1 Ml Vial) 0.2 mg IV Q2M PRN PRN Reason: Opioid Reversal Nystatin (Nystatin 100,000 Unit/Ml Susp 500,000 Unit/5 Ml Cup) 500,000 unit PO QID [facility]; Protocol Last Admin: 04/05/23 12:25 Dose: 500,000 unit Olanzapine (Olanzapine 5 Mg Tab) 5 mg PO HS [facility] Last Admin: 04/04/23 20:03 Dose: 5 mg Ondansetron HCl (Ondansetron 4 Mg/2 Ml Vial) 4 mg IVP Q8HR PRN PRN Reason: Nausea And Vomiting Pantoprazole Sodium (Pantoprazole 40 Mg/10 Ml Vial) 40 mg IV DAILY [facility] Last Admin: 04/05/23 08:26 Dose: 40 mg Senna (Sennosides 8.6 Mg Tab) 8.6 mg PO BID [facility] Last Admin: 04/05/23 08:26 Dose: 8.6 mg Senna/Docusate Sodium (Sennosides-Docusate Sodium 1 Each Tab) 2 each PO HS [facility] Last Admin: 04/04/23 20:04 Dose: 2 each Past medical history to include: Diabetes mellitus type 2, hyperlipidemia, hypertension, osteoarthritis, peripheral neuropathy, bilateral breast cancer with bilateral mastectomies, ulcerative colitis-colonoscopy has shown normal colon and biopsy was negative., diverticulosis, chronic low back pain and arthritis, anxiety depression. COVID- 19 Social history: . Smoked for 41 years stopped in 2005. No alcohol Physical examination: VITAL SIGNS: 99.1, 84, 32, 160/50, 94% on the ventilator GENERAL: , intubated. OG tube EYES: Pupils equal. Conjunctiva normal. HEENT: External appearance of nose and ears normal, oral cavity OG tube NECK: JVD unable to assess; masses not palpable. HEART: First and second heart sounds are normal; edema present LUNGS: Respiratory rate increased, decreased breath sounds ABDOMEN: Soft, nontender, liver spleen not palpable, no masses palpable. PSYCH: Unable to assess MUSCULAR skeletal: Evidence of OA especially in the hands . Right lower extremity in a brace INVESTIGATIONS, reviewed in the clinical context: Heparin-induced platelet antibody: 2.1 April 05: WBC 11.2 hemoglobin 7.9 platelets 64 potassium 4.1 BUN 49 creatinine 0.95 April 04: White count 10.5 hemoglobin 7.7 platelets 80 potassium 4.9 creatinine 0.99 March 30: White count 15.4 hemoglobin 8.8 platelets 298 potassium 3.6 BUN 53 creatinine 1.99 AST 1842 ALT 208 2-D echocardiogram: Moderate increased LVH. EF 50-55%. Severe right ventricle dilatation generalized right ventricle hypokinesis. Severe pulmonary hypertension. Moderate to severe tricuspid regurgitation. Ultrasound venous Doppler lower extremity: Limited views. No obvious DVT. Ultrasound kidney: Right kidney: Mild renal cortical thinning. Left kidney obscured. March 29: White count 20.6 hemoglobin 6.7 platelets 300 ABG: PH 7.13 pCO2 62. Potassium 5.1 BUN 40 creatinine 1.91 blood glucose 372 UA: Noted March 28: White count 9.1 hemoglobin 9.5 potassium 4.4 BUN 36 creatinine 1.37 White count 12.2 hemoglobin 11.5 platelets 510 sodium 140 potassium 4 BUN 34 creatinine 1.9 EKG tracing personally reviewed by me-normal sinus rhythm. Chest x-ray film personally reviewed by me-: Portable. No obvious infiltrate Knee x-ray/femur CT: Comminuted fracture distal metadiaphyseal femur adjacent to a knee processes. Displacement of the distal fracture fragment from the proximal fracture Assessment and plan: -Fall leading to acute Comminuted fracture distal metadiaphyseal femur adjacent to a knee processes. Displacement of the distal fracture fragment from the proximal fracture. March 28:right revision total knee replacement the distal femoral replacement age for periprosthetic distal femur fracture. By Dr. Stack. EBL 600 mL -Metabolic/anoxic encephalopathy. Not improving Neurology consulted. EEG for seizure -Mucous plugging with left lower lobe atelectasis. Status post bronchoscopy and removal of sticks tenacious secretions. 04/01/2023 -Acute severe blood loss anemia from surgery Patient received 3 units of blood -Hyperkalemia from acute kidney injury: Better -Thrombocytopenia. Positive heparin-induced antibody Remains off IV heparin . Consult hematology -Acute cor pulmonale with underlying suspicious for fat embolism/pulmonary embolism with acute right ventricle dilatation and moderate to severe TR. -Acute hypotensive shock from blood loss anemia.: Better Receive 3 units of blood. IV levo fed discontinued -Acute kidney injury likely cardiorenal syndrome/ATN. From hypotension and anemia.: Better Follow with nephrology. Admission creatinine was 1.29. Peaked at 2.43. 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 / Amaryl. Increase Levemir to 48 units at night -Hyperlipidemia Lipitor, TriCor -Anxiety not otherwise specified Klonopin 0.5 mg 3 times a day -Depression Zyprexa 5 mg daily at bedtime, Prozac 40 mg a day -Hyperuricemia Allopurinol -Essential hypertension, currently hypotensive -Acute hepatitis likely ischemic, improvement -Primary osteoarthritis Pain medications when necessary -Chronic kidney disease stage III from diabetic nephropathy and hypertensive nephrosclerosis Follow renal function -DO NOT RESUSCITATE ICU. Critically ill. EEG -no seizure IV Zosyn. Since hematology. Discussed with family.
[2023-04-05 15:51] LABS: Total Bilirubin 0.8 mg/dL (0.2-1.3)
[2023-04-05 16:29] LABS: Glucose,Whole Blood 185 mg/dL (70-110)
--- NOTE | 2023-04-05 16:40 | P.PN ---
Subjective Progress Note Date: 04/05/23 The patient seen at bedside and the record the patient nurse she's continues to be unstable for imaging. No change in her condition. Objective - Vital Signs Vital signs: Vital Signs Temp 99.1 F 04/05/23 12:00 Pulse 80 04/05/23 16:04 Resp 32 H 04/05/23 15:00 BP 160/63 04/05/23 05:30 Pulse Ox 96 04/05/23 15:00 FiO2 40 04/05/23 15:42 Intake & Output 04/04/23 04/05/23 04/05/23 18:59 06:59 18:59 Intake Total 6542.646 7962.330 1285.310 Output Total 2925 2125 2500 Balance -1074.888 -250.670 -1214.690 Weight 133.7 kg 124.7 kg 124.7 kg Intake: IV 200 230 200 Piperacillin-Tazobactam 3 100 .375 gm In Sodium Chloride 0.9% 100 ml @ 25 mls/hr IVPB Q8HR [facility] Rx# :[id number] Sodium Chloride 0.9% 1, 200 230 100 000 ml @ 20 mls/hr IV . Q24H [facility] Rx#:[id number] Intake, IV Titration 431.112 626.330 474.310 Amount Clevidipine Butyrate 25 98.667 256.300 84.501 mg In Empty Bag 1 bag @ 1 MG/HR 2 mls/hr IV .Q24H [facility] Rx#:[id number] propofoL 1,000 mg In 332.445 370.030 389.809 Empty Bag 1 bag @ 15 MCG/ KG/MIN 10.41 mls/hr IV . Q9H37M [facility] Rx#:[id number] Oral 0 Tube Feeding 319 348 261 Other 900 670 350 Output: Urine 2925 2125 2500 Other: Voiding Method Indwelling Catheter Indwelling Catheter Indwelling Catheter ABP, PAP, CO, CI - Last Documented Arterial Blood Pressure 133/49 - Exam GENERAL: The patient is lying in bed and is not in acute distress. Lung: Intubated on Vent. NEUROLOGICAL: Examination is limited because of condition and sedation. Is on IV Propofol 60mcg/kg/min (was on 50mcg/kg/min earlier) and on IV Cleviprex 4mg/hr. Higher mental function: Is comatose. GCS 3( E1, VT1, M1). Cranial nerves: I had to manually open her eyes. Primary gaze is midline. The pupils are round, equal and reactive to light. +ve corneal reflex bilaterally. -ve Occulocephalic reflex. Grimaces face with painful stimuli. Has weak gag reflex. Motor: The strength is hard to assess. No withdrawal noted to all extremities. Normal tone and bulk. Cerebellum: Unable to assess. Sensation: Unable to assess light touch. But to painful stimuli, grimaces face throughout. - Labs CBC & Chem 7: 04/05/23 07:30 04/05/23 07:30 Labs: Abnormal Lab Results - Last 24 Hours (Table) 04/04/23 04/04/23 04/04/23 Range/Units 09:30 09:30 18:10 WBC (3.8-10.6) k/uL RBC (3.80-5.40) m/uL Hgb (11.4-16.0) gm/dL Hct (34.0-46.0) % RDW (11.5-15.5) % Plt Count (150-450) k/uL Monocytes # (Manual) (0-1.0) k/uL Metamyelocytes # (Man) (0) k/uL Myelocytes # (Manual) (0) k/uL Nucleated RBCs (0-0) /100 WBC ABG pH (7.35-7.45) ABG pO2 (83-108) mmHg ABG HCO3 (21-25) mmol/L ABG Total CO2 (19-24) mmol/L BUN (7-17) mg/dL Glucose (74-99) mg/dL POC Glucose (mg/dL) 166 H (70-110) mg/dL Magnesium (1.6-2.3) mg/dL Procalcitonin 0.71 H (0.02-0.09) ng/mL Heparin-Ind Plt Ab Scrn 2.100 H (<0.4) OD 04/04/23 04/05/23 04/05/23 Range/Units 23:44 05:38 05:40 WBC (3.8-10.6) k/uL RBC (3.80-5.40) m/uL Hgb (11.4-16.0) gm/dL Hct (34.0-46.0) % RDW (11.5-15.5) % Plt Count (150-450) k/uL Monocytes # (Manual) (0-1.0) k/uL Metamyelocytes # (Man) (0) k/uL Myelocytes # (Manual) (0) k/uL Nucleated RBCs (0-0) /100 WBC ABG pH (7.35-7.45) ABG pO2 68 L (83-108) mmHg ABG HCO3 31 H (21-25) mmol/L ABG Total CO2 33 H (19-24) mmol/L BUN (7-17) mg/dL Glucose (74-99) mg/dL POC Glucose (mg/dL) 154 H 165 H (70-110) mg/dL Magnesium (1.6-2.3) mg/dL Procalcitonin (0.02-0.09) ng/mL Heparin-Ind Plt Ab Scrn (<0.4) OD 04/05/23 04/05/23 04/05/23 Range/Units 07:30 07:30 11:04 WBC 11.2 H (3.8-10.6) k/uL RBC 2.70 L (3.80-5.40) m/uL Hgb 7.9 L (11.4-16.0) gm/dL Hct 24.9 L (34.0-46.0) % RDW 16.9 H (11.5-15.5) % Plt Count 64 L (150-450) k/uL Monocytes # (Manual) 1.23 H (0-1.0) k/uL Metamyelocytes # (Man) 0.34 H (0) k/uL Myelocytes # (Manual) 0.34 H (0) k/uL Nucleated RBCs 1 H (0-0) /100 WBC ABG pH 7.46 H (7.35-7.45) ABG pO2 77 L (83-108) mmHg ABG HCO3 31 H (21-25) mmol/L ABG Total CO2 33 H (19-24) mmol/L BUN 49 H (7-17) mg/dL Glucose 168 H (74-99) mg/dL POC Glucose (mg/dL) (70-110) mg/dL Magnesium 1.5 L (1.6-2.3) mg/dL Procalcitonin (0.02-0.09) ng/mL Heparin-Ind Plt Ab Scrn (<0.4) OD 04/05/23 04/05/23 Range/Units 11:30 16:27 WBC (3.8-10.6) k/uL RBC (3.80-5.40) m/uL Hgb (11.4-16.0) gm/dL Hct (34.0-46.0) % RDW (11.5-15.5) % Plt Count (150-450) k/uL Monocytes # (Manual) (0-1.0) k/uL Metamyelocytes # (Man) (0) k/uL Myelocytes # (Manual) (0) k/uL Nucleated RBCs (0-0) /100 WBC ABG pH (7.35-7.45) ABG pO2 (83-108) mmHg ABG HCO3 (21-25) mmol/L ABG Total CO2 (19-24) mmol/L BUN (7-17) mg/dL Glucose (74-99) mg/dL POC Glucose (mg/dL) 207 H 185 H (70-110) mg/dL Magnesium (1.6-2.3) mg/dL Procalcitonin (0.02-0.09) ng/mL Heparin-Ind Plt Ab Scrn (<0.4) OD Assessment and Plan Assessment: * Altered mental status, likely due to toxic metabolic encephalopathy. As well as some component of encephalopathy due to sedation induced (Propofol and Cl eviprex) * Status post fall, with right femur fracture, status post surgery 03/28/2023 * Possible PE versus fat embolism, with subsequent significant hemodynamic instability, right heart strain * Acute severe blood loss anemia status post transfusion * Status post acute hypotensive shock from blood loss anemia * Acute kidney injury * COPD * Diabetes * Hyperlipidemia * Hypertension * Pneumonia * Obesity * X tobacco use * History of right knee arthroplasty in fall of 2021 Plan: * EEG: As abnormal. Tobacco slowing suggestive of mild to moderate encephalopathy. Otherwise there is no focal slowing, epileptiform discharges or seizure on the EEG. * CT head, when able to be performed. At present patient is very unstable, not able to lay flat for any testing. * Medical management as per IM, critical care and other specialties The plan is discussed with the patient's nurse. Time with Patient: Less than 30
[2023-04-05] MEDS: ARGATROBAN 50 MG in SODIUM CHLORIDE 0.9% 50 ML IV SCH ×2 (17:07→21:50)
[2023-04-05 17:13] LABS: Potassium 4.1 mmol/L (3.5-5.1)
[2023-04-05] MEDS: INSULIN DETEMIR (LEVEMIR) 100 UNIT/ML SYR SQ SCH (18:16)
[2023-04-05] MEDS: SENNOSIDES-DOCUSATE SODIUM 1 EACH TAB PO SCH (21:26)
[2023-04-05] MEDS: OLANZapine 5 MG TAB PO SCH (21:26)
[2023-04-06 00:32] LABS: Glucose,Whole Blood 152 mg/dL (70-110)
[2023-04-06] MEDS: INSULIN ASPART (NovoLOG) 100 UNIT/ML VIAL SQ SCH ×5 (00:35→23:46)
[2023-04-06] MEDS: PIPERACILLIN-TAZOBACTAM 3.375 GM in SODIUM CHLORIDE 0.9% 100 ML IVPB SCH ×3 (00:35→16:05)
[2023-04-06] MEDS: IPRATROPIUM-ALBUTEROL 3 ML NEB INHALATION SCH ×6 (00:37→20:32)
[2023-04-06] MEDS: ARGATROBAN 50 MG in SODIUM CHLORIDE 0.9% 50 ML IV SCH ×8 (01:45→23:40)
[2023-04-06] MEDS: CLEVIDIPINE BUTYRATE 25 MG in EMPTY BAG 1 BAG IV SCH ×3 (03:12→17:00)
[2023-04-06] MEDS: SODIUM CHLORIDE 0.9% 80 ML with fentaNYL (PF) 1,000 MCG IV SCH ×2 (05:11)
[2023-04-06 05:15] LABS: Glucose,Whole Blood 156 mg/dL (70-110)
[2023-04-06 05:24] LABS: Anisocytosis Slight; Basophils # (A) 0.1 k/uL (0-0.2); Basophils % (A) 0 %; Eosinophils # (A) 0.3 k/uL (0-0.7); Eosinophils % (A) 2 %; HCT 25.6 % (34.0-46.0); HGB 8.2 gm/dL (11.4-16.0); Hypochromasia Moderate; Lymphocytes # (A) 1.8 k/uL (1.0-4.8); Lymphocytes % (A) 15 %; MCV 90.6 fL (80.0-100.0); Mean Platelet Volume 10.4; Monocytes # (A) 0.8 k/uL (0-1.0); Monocytes % (A) 7 %; Neutrophils # (A) 8.8 k/uL (1.3-7.7); Neutrophils % (A) 73 %; Poikilocytosis Slight; RBC 2.82 m/uL (3.80-5.40); RDW 17.1 % (11.5-15.5); WBC 12.1 k/uL (3.8-10.6)
[2023-04-06] MEDS: SODIUM CHLORIDE 0.9% 1,000 ML IV SCH (05:24)
[2023-04-06 05:37] LABS: Calcium 9.9 mg/dL (8.4-10.2); Magnesium 1.8 mg/dL (1.6-2.3); Platelet Count 78 k/uL (150-450); Potassium 4.1 mmol/L (3.5-5.1)
[2023-04-06 05:57] LABS: ABG Base Excess 9.7 mmol/L; ABG HCO3 33 mmol/L (21-25); ABG Oxygen Saturation 95.3 % (94-97); ABG PCO2 43 mmHg (35-45); ABG PH 7.49 (7.35-7.45); ABG PO2 70 mmHg (83-108); ABG TCO2 34 mmol/L (19-24); Allen Test Performed? Yes
[2023-04-06] MEDS: METOPROLOL TARTRATE 25 MG TAB PO SCH ×2 (08:20→20:20)
[2023-04-06] MEDS: SENNOSIDES 8.6 MG TAB PO SCH ×2 (08:20→20:20)
[2023-04-06] MEDS: amLODIPine 2.5 MG TAB PO SCH (08:20)
[2023-04-06] MEDS: FLUoxetine HCL 20 MG CAP PO SCH (08:20)
[2023-04-06] MEDS: CHLORHEXIDINE GLUCONATE 15 ML CUP MUCOUS MEM SCH ×2 (08:21→20:20)
[2023-04-06] MEDS: FERROUS SULFATE 325 MG TAB PO SCH (08:21)
[2023-04-06] MEDS: PANTOPRAZOLE 40 MG/10 ML VIAL IV SCH (08:21)
[2023-04-06] MEDS: NYSTATIN 100,000 UNIT/ML SUSP 500,000 UNIT/5 ML CUP PO SCH ×4 (08:21→21:13)
[2023-04-06] MEDS ORDERED: MAGNESIUM SULFATE-D5W PMX 1 GM in DEXTROSE/WATER 1 100ML.BAG IVPB ONE (08:30)
[2023-04-06] MEDS: FUROSEMIDE 10 MG/ML 4 ML VIAL IV SCH ×2 (09:45→20:20)
--- NOTE | 2023-04-06 10:14 | P.PN ---
Subjective Progress Note Date: 04/06/23 Principal diagnosis: Respiratory failure. Patient was reevaluated today on 04/01/2023, remains in the ICU, intubated and mechanically ventilated. She is now on assist control rate of 32 tidal volume of 450 FiO2 45% and PEEP of 5 ABG showed a pO2 of 65 pCO2 43 pH of 7.34 hence Fi O2 was increased to 50%. Chest x-ray showed atelectasis of the left lower lobe as the patient underwent bronchoscopy today, and suction some tenacious secretions in the left lower lobe bronchus. No evidence of any other significant findings. Fluid obtained was sent for diagnostic studies. Patient remains on propofol at 20 mcg/kg/m she is also on heparin drip for presumptive pulmonary embolism she is receiving insulin at 5.3 units per hour norepinephrine at low-dose, however this was discontinued once the patient woke up and evaluated off propofol. Patient remains on Rocephin empirically, cultures have been negative so far. Awaiting cultures from the BAL of the left lower lobe today. Obviously the patient is not quite ready for weaning off propofol she was noted to be tachypneic, tachycardic, and her blood pressure was as high as 200 systolic. Hence no further weaning to be done today. And her ventilator settings will be adjusted accordingly after bronchoscopy and BAL. Labs today were reviewed she has a bit of leukocytosis with WBC count of 16.9 her PTT is therapeutic at 45.7 and electrolytes are normal BUN is down to 46 creatinine is down to 1.20 will continue to monitor heparin for now and monitor her renal status, may eventually recommend CT angiogram of the chest to confirm whether the patient had thromboembolic disease/pulmonary embolism. Pro calcitonin level was 1.91, nonetheless patient remains on Rocephin. So far urine cultures and blood cultures and sputum cultures have been negative Patient was reevaluated today on 04/02/2023, remains in the ICU, intubated and mechanically ventilated. Patient had a bit of a setback last night, apparently there was some issues with the nasogastric tube, and it was felt that the patient may have aspirated some of her feedings from the nasogastric tube, hence this tube was removed and another tube was placed, follow-up chest x-ray showed adequate placement of the orogastric tube. In the meantime the patient desat urated and she required increase in her FiO2. She went up as high as 75% PEEP was increased to 8 and today I recommended increasing the PEEP to 12 and FiO2 down to 65%. And advised titration. Chest x-ray continues to show left lower lobe consolidation. Right side seems to be relatively clear. ABG this morning showed a pO2 of 84 pCO2 51 pH of 7.39. Patient is on propofol at 50 mcg/kg/m she is also on insulin at 4.25 units per hour vital HPI 29 mL/h she is off norepinephrine. Considering the aspiration situation I recommended that we change antibiotics to Zosyn cultures from the BAL of the left lower lobe are pending. Her vent settings changed to assist control rate of 32 tidal volume 450 FiO2 65% and PEEP of 12. WBC count is 10.6 hemoglobin is 7.2 PTT is 35.6, electrolytes are normal BUN is 53 creatinine 1.[address] angiogram of the chest in the next 24-48 hours in the meantime the patient seems to be tolerating heparin well Reevaluated today on 04/03/2023, patient remains in the ICU, intubated and mechanically ventilated. Her assist-control rate is 3 to tidal volume is 450 FiO2 60% and I cut down today to 50% PEEP is at 12. Patient remains on propofol at 50 mcg/kg/m remains on heparin drip, she is also on vital HPI 29 mL per hour. Antibiotics aguirre remains on Zosyn, cultures have been negative along. Even though washing from the BAL of the left lower lobe remains nondiagnostic. ABG showed a pO2 of 108 pCO2 42 pH of 7.45 hence FiO2 was cut down from 60% to 50%. Patient has been off sedation, she does not seem to be appropriate, she opens her eyes, but does not follow any instructions, she seems to be confused, and encephalopathic. Hence I initiated a neurological consultation, I believe the patient may have sustained fat embolism to explain her mental status. Would like to have a CT of the brain and CT of the chest, however the patient cannot lay flat, and she desaturates significantly upon laying flat, hence we'll hold on both for now. Her urine output is excellent and she was given more Lasix a day. Her pain seems to be under control and her blood pressure seems to respond well to Dilaudid every 2 hours as needed. Considering her ABG is marginal and considering that the patient is requiring relatively high PEEP I am not yet ready to extubate the patient also concerned about her mental status. WBC count is 10.9 hemoglobin is 7.4. PTT is 53.6. BUN is 56 creatinine is 1.07. Considering CT angiogram of the chest but because of her inability to lay flat and she desaturates easily him holding on the CT angiogram of the chest for now. Progress note dated 04/04/2023. 72-year-old female admitted back on March 26. She had a fall and fractured her right femur. She went to the operating room on March 28, and was intubated on that day. She was thought to possibly have pulmonary embolism, or fat embolism syndrome. Because of her instability, she's not been able to go for a CT angiogram. Currently, she remains on the ventilator, at volume assist control, rate 32, , tidal volume 450, FiO2 50%, and PEEP of 12. Blood gases show pO2 of 91, pCO2 44, and pH is 7.44. She remains on propofol at 75 mcg/kg/m, IV heparin, 0.9 at KVO, and vital, at 23 mL an hour, which is goal. The nurse has a number of issues today and redressed some all. For her blood pressure elevation, we start her on Cleveprex, to be titrated slowly systolic blood pressures less than 160 and the mean is less than 100. We had backed the patien t's Toprol-XL. In addition, because of fluid retention, we'll give the patient Lasix 60 mg IV push. We will dose daily based on her I's and O's. We also will discontinue heparin, and started on Lovenox 120 mg subcu every 12 hours. This is because her platelet count has declined to 80,000. In addition, we will order that heparin-induced thrombocytopenia antibodies. White count 10.5, hemoglobin 7.7, hematocrit 23.8, and platelet count 80,000. Sodium 142, potassium 4.9, chlorides 108, CO2 28, BUN 54, creatinine 0.99. Microbiologic sampling has been negative. Chest x-ray shows changes of COPD, with a small left-sided pleural effusion, and retrocardiac atelectasis or consolidation. Progress note dated 04/05/2023. 72-year-old female admitted back on March 26. She had a fall and a fractured right femur. She went to the operating room on March 28, and was intubated on that day. She was thought to have possibly a pulmonary embolism, or fat embolism syndrome. Because of instability, the patient has not been able to go down for a CT angiogram. She did have Dopplers of the lower extremity that were negative. She remains on mechanical ventilator. She is on the volume assist control, rate 32, tidal volume 450, FiO2 50%, and a PEEP of 12. Arterial blood gases show pO2 of 68, pCO2 45, and a pH is 7.45. The patient remains on Cleveprex at 4 mg an hour, propofol at 50 mcg/kg/m, saline at 10 mL an hour, and vital, at 29 mL an hour, which is goal. White count 11.2, hemoglobin 7.9, hematocrit 24.9, and platelet count 64,000. Sodium 139, potassium 4.1, chlorides 104, CO2 29, BUN 49, and creatinine 0.95. Glucose 168. Microbiologic data is negative. Chest x-rays consistent with mild fluid overload. There may be some basilar infiltrates or atelectasis. Progress note dated 04/06/2023. 72-year-old female admitted back on March 26. Should a fall with a fractured right femur. She went to the operating room 2 days later on the , to have the fracture repaired. She was placed on the ventilator at that time, and has been on the ventilator since. She was thought to possibly have either fat embolism syndrome, or a pulmonary embolism. She's been too unstable, to take down for a computed tomography scan of the chest, and now, her renal function is such that the dye, with injured her kidneys even further. Also, yesterday, because of dropping platelet counts, we ordered the heparin-induced thrombocytopenia panel, and it was positive, so I started the patient on A rgatroban, at 2.5 mcg/kg/m. The platelet counts actually a bit higher today. She remains on the ventilator, volume assist control, rate 32, out of I'm 450, FiO2 40%, and PEEP of 12. Blood gases show pO2 of 70, pCO2 43, and a pH is 7.49. His blood gases consistent with a very mild metabolic alkalosis. In addition to Argatroban, the patient is on propofol at 40 mcg/kg/m, and Cleveprex at 2 mg an hour, which may be discontinued. She's getting tube feedings with vital at 29 mL an hour, which is goal. Today, we will lessen her sedation, for a daily interruption of sedation. She is likely not ready for a spontaneous breathing trial. White count 12.1, hemoglobin 8.2, hematocrit 25.6, and p latelet count 78,000. Yesterday was 64,000. The patient's sodium is 141, potassium 4.1, chlorides 101, CO2 32, BUN 50, creatinine 1.11. Microbiologic studies are all negative thus far. Chest x-ray this morning shows atelectasis or infiltrate at the right lung base, and some consolidation or fluid at the left lung base. Objective - Vital Signs Vital signs: Vital Signs Temp 99.7 F H 04/06/23 04:00 Pulse 77 04/06/23 10:01 Resp 32 H 04/06/23 10:01 BP 160/63 04/05/23 05:30 Pulse Ox 91 L 04/06/23 07:00 FiO2 40 04/06/23 09:46 Intake & Output 04/05/23 04/06/23 04/06/23 18:59 06:59 18:59 Intake Total 6679.766 9439.746 184.593 Output Total 3000 1460 150 Balance -1528.357 -383.254 34.593 Weight 124.7 kg 128.7 kg Intake: IV 230 200 20 Piperacillin-Tazobactam 3 100 .375 gm In Sodium Chloride 0.9% 100 ml @ 25 mls/hr IVPB Q8HR [facility] Rx# :[id number] Sodium Chloride 0.9% 1, 130 200 20 000 ml @ 20 mls/hr IV . Q24H [facility] Rx#:[id number] Intake, IV Titration 493.643 468.746 135.593 Amount Argatroban 50 mg In 138.782 50 Sodium Chloride 0.9% 50 ml @ 1 MCG/KG/MIN 7.482 mls/hr IV .Q6H41M [facility] Rx# :[id number] Clevidipine Butyrate 25 103.834 40.734 mg In Empty Bag 1 bag @ 1 MG/HR 2 mls/hr IV .Q24H [facility] Rx#:[id number] propofoL 1,000 mg In 389.809 289.230 85.593 Empty Bag 1 bag @ 15 MCG/ KG/MIN 10.41 mls/hr IV . Q9H37M [facility] Rx#:[id number] Oral 0 Tube Feeding 348 348 29 Other 400 60 Output: Urine 3000 1460 150 Other: Voiding Method Indwelling Catheter Indwelling Catheter ABP, PAP, CO, CI - Last Documented Arterial Blood Pressure 155/53 - Exam No acute distress, sedated, with an orally placed endotracheal tube and NG tube. HEENT examination is grossly unremarkable. Neck supple. Full range of motion. No adenopathy thyromegaly or neck vein dist ention. Cardiovascular examination reveals regular rhythm rate. S1-S2 normal. No S3 or S4. No discernible murmur noted. Heart sounds are distant. Heart rate 77 bpm. Lungs reveal scattered bilateral rhonchi. No wheezes or crackles. Breath sounds equal. Saturation is 92 % Abdomen obese, with bowel sounds. Extremities are intact. No cyanosis or clubbing. There is diffuse edema and anasarca. Skin is without rash or lesion. Neurologic examination cannot be adequately assessed at this time. - Labs CBC & Chem 7: 04/06/23 05:10 04/06/23 05:10 Labs: Abnormal Lab Results - Last 24 Hours (Table) 04/04/23 04/05/23 04/05/23 Range/Units 09:30 11:04 11:30 WBC (3.8-10.6) k/uL RBC (3.80-5.40) m/uL Hgb (11.4-16.0) gm/dL Hct (34.0-46.0) % RDW (11.5-15.5) % Plt Count (150-450) k/uL Neutrophils # (1.3-7.7) k/uL APTT (22.0-30.0) sec ABG pH 7.46 H (7.35-7.45) ABG pO2 77 L (83-108) mmHg ABG HCO3 31 H (21-25) mmol/L ABG Total CO2 33 H (19-24) mmol/L Carbon Dioxide (22-30) mmol/L BUN (7-17) mg/dL Creatinine (0.52-1.04) mg/dL Glucose (74-99) mg/dL POC Glucose (mg/dL) 207 H (70-110) mg/dL Heparin-Ind Plt Ab Scrn 2.100 H (<0.4) OD 04/05/23 04/05/23 04/05/23 Range/Units 16:27 16:30 19:00 WBC (3.8-10.6) k/uL RBC (3.80-5.40) m/uL Hgb (11.4-16.0) gm/dL Hct (34.0-46.0) % RDW (11.5-15.5) % Plt Count (150-450) k/uL Neutrophils # (1.3-7.7) k/uL APTT 32.7 H 51.5 H (22.0-30.0) sec ABG pH (7.35-7.45) ABG pO2 (83-108) mmHg ABG HCO3 (21-25) mmol/L ABG Total CO2 (19-24) mmol/L Carbon Dioxide (22-30) mmol/L BUN (7-17) mg/dL Creatinine (0.52-1.04) mg/dL Glucose (74-99) mg/dL POC Glucose (mg/dL) 185 H (70-110) mg/dL Heparin-Ind Plt Ab Scrn (<0.4) OD 04/05/23 04/06/23 04/06/23 Range/Units 22:51 00:31 02:00 WBC (3.8-10.6) k/uL RBC (3.80-5.40) m/uL Hgb (11.4-16.0) gm/dL Hct (34.0-46.0) % RDW (11.5-15.5) % Plt Count (150-450) k/uL Neutrophils # (1.3-7.7) k/uL APTT 58.6 H 65.3 H (22.0-30.0) sec ABG pH (7.35-7.45) ABG pO2 (83-108) mmHg ABG HCO3 (21-25) mmol/L ABG Total CO2 (19-24) mmol/L Carbon Dioxide (22-30) mmol/L BUN (7-17) mg/dL Creatinine (0.52-1.04) mg/dL Glucose (74-99) mg/dL POC Glucose (mg/dL) 152 H (70-110) mg/dL Heparin-Ind Plt Ab Scrn (<0.4) OD 04/06/23 04/06/23 04/06/23 Range/Units 05:10 05:10 05:10 WBC 12.1 H (3.8-10.6) k/uL RBC 2.82 L (3.80-5.40) m/uL Hgb 8.2 L (11.4-16.0) gm/dL Hct 25.6 L (34.0-46.0) % RDW 17.1 H (11.5-15.5) % Plt Count 78 L (150-450) k/uL Neutrophils # 8.8 H (1.3-7.7) k/uL APTT 70.4 H (22.0-30.0) sec ABG pH (7.35-7.45) ABG pO2 (83-108) mmHg ABG HCO3 (21-25) mmol/L ABG Total CO2 (19-24) mmol/L Carbon Dioxide 32 H (22-30) mmol/L BUN 50 H (7-17) mg/dL Creatinine 1.11 H (0.52-1.04) mg/dL Glucose 139 H (74-99) mg/dL POC Glucose (mg/dL) (70-110) mg/dL Heparin-Ind Plt Ab Scrn (<0.4) OD 04/06/23 04/06/23 Range/Units 05:13 05:52 WBC (3.8-10.6) k/uL RBC (3.80-5.40) m/uL Hgb (11.4-16.0) gm/dL Hct (34.0-46.0) % RDW (11.5-15.5) % Plt Count (150-450) k/uL Neutrophils # (1.3-7.7) k/uL APTT (22.0-30.0) sec ABG pH 7.49 H (7.35-7.45) ABG pO2 70 L (83-108) mmHg ABG HCO3 33 H (21-25) mmol/L ABG Total CO2 34 H (19-24) mmol/L Carbon Dioxide (22-30) mmol/L BUN (7-17) mg/dL Creatinine (0.52-1.04) mg/dL Glucose (74-99) mg/dL POC Glucose (mg/dL) 156 H (70-110) mg/dL Heparin-Ind Plt Ab Scrn (<0.4) OD Assessment and Plan Assessment: Acute hypoxemic and hypercapnic respiratory failure, possibly secondary to pulmonary embolism, or fat embolism syndrome. Status post intubation and mechanical ventilation, beginning on March 28. Postop day #9, status post repair of comminuted right femur fracture. 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 Hypotension, which may relate to PE, or FES, resolved. Acute kidney injury. Acute blood loss anemia. Lactic acidemia secondary to hypotension and hypoperfusion. Shock liver. Previous right total knee replacement. Morbid obesity. History of obstructive sleep apnea syndrome. Previous history of tobacco use. Left lower lobe atelectasis versus pneumonia. Status post bronchoscopy and BAL, postop day #5. Mental status changes, likely related to metabolic encephalopathy. Plan: Plan dated 04/04/2023. The patient is started back on Toprol, which she was taking as an outpatient, and we also added IV Cleveprex, is a dihydropyridine calcium channel alisha, for better blood pressure support. I put targets of systolics less than 160, and mean arterial pressures of less than 100 to the nurse. The patient will get Lasix 60 mg IV push once. We'll DC the IV heparin in favor of Lovenox 120 mg subcu every 12 hours. HIT antibodies are ordered. Labs, x-rays, medications are all reviewed. We will continue to follow make recommendations along the way. Prognosis is guarded. Plan dated 04/05/2023. The patient's blood pressure is under better control. The patient continues on Cleveprex, and propofol. I attempted to call the , Khoa, but he did not chart picker the phone. The nurse will restart the family. Labs, x-rays, medications are all reviewed. The patient was intubated on March 28. Because of relatively higher FiO2's, and PEEP levels, the patient is not a candidate for extubation. By the end of the week, the patient is to continue as a full code, we'll talk to the family about tracheostomy and PEG tube placement. Prognosis is certainly guarded. We will continue to follow the platelet count. She was switched from heparin to low molecular weight heparin yesterday. Plan dated 04/06/2023. Currently, the patient remains on propofol, and a small dose of Cleveprex. She's also getting tube feedings at goal. The heparin-induced thrombocytopenia panel came back positive, and the patient was started on Argatroban. The nurse will lessen the patient's sedation today, to evaluate her mental status. In addition, I had a long discussion with the daughter, Jyoti, and spoke to her about the various issues including the renal dysfunction, the pluses and minuses of doing a CT angiogram, and the problem with the platelets. In addition, we spoke about the possibility of tracheostomy and PEG tube placement. She mentioned that the patient would not once that. Because of last day and a half is been a bit better, will hold off for now. Labs, x-rays, and medications are reviewed. Prognosis is guarded. We will continue to follow make recommendations along the way. Time with Patient: Greater than 30
--- NOTE | 2023-04-06 10:34 | P.PN ---
Subjective Patient is seen for follow-up for acute kidney injury and top of chronic kidney disease. Renal function has improved, however serum creatinine is slightly higher over the last couple of days. It is 1.1 today. Urine output at 85-110 mL an hour. Maintained on IV Lasix Off of Cleviprex drip this morning. Patient was started on Norvasc yesterday. Objective - Vital Signs Vital signs: Vital Signs Temp 99.7 F H 04/06/23 08:00 Pulse 77 04/06/23 10:01 Resp 32 H 04/06/23 10:01 BP 160/63 04/05/23 05:30 Pulse Ox 93 L 04/06/23 10:00 FiO2 40 04/06/23 09:46 Intake & Output 04/05/23 04/06/23 04/06/23 18:59 06:59 18:59 Intake Total 4055.329 8940.746 481.593 Output Total 3000 1460 525 Balance -1528.357 -383.254 -43.407 Weight 124.7 kg 128.7 kg Intake: IV 230 200 80 Piperacillin-Tazobactam 3 100 .375 gm In Sodium Chloride 0.9% 100 ml @ 25 mls/hr IVPB Q8HR [facility] Rx# :[id number] Sodium Chloride 0.9% 1, 130 200 80 000 ml @ 20 mls/hr IV . Q24H [facility] Rx#:[id number] Intake, IV Titration 493.643 468.746 235.593 Amount Argatroban 50 mg In 138.782 50 Sodium Chloride 0.9% 50 ml @ 1 MCG/KG/MIN 7.482 mls/hr IV .Q6H41M [facility] Rx# :[id number] Clevidipine Butyrate 25 103.834 40.734 mg In Empty Bag 1 bag @ 1 MG/HR 2 mls/hr IV .Q24H [facility] Rx#:[id number] Magnesium Sulfate-D5w Pmx 100 1 gm In Dextrose/Water 1 100ml.bag @ 100 mls/hr IVPB ONCE ONE Rx#: [id number] propofoL 1,000 mg In 389.809 289.230 85.593 Empty Bag 1 bag @ 15 MCG/ KG/MIN 10.41 mls/hr IV . Q9H37M [facility] Rx#:[id number] Oral 0 Tube Feeding 348 348 116 Other 400 60 50 Output: Urine 3000 1460 525 Other: Voiding Method Indwelling Catheter Indwelling Catheter Indwelling Catheter ABP, PAP, CO, CI - Last Documented Arterial Blood Pressure 162/57 - Exam Patient is intubated and on the vent FiO2 at 50% Examination of the heart S1 and S2 Examination of the lungs bilateral breath sounds are heard Abdomen is soft obese Examination of lower extremities shows edema 2+ bilaterally upper and lower extremities - Labs CBC & Chem 7: 04/06/23 05:10 04/06/23 05:10 Labs: Abnormal Lab Results - Last 24 Hours (Table) 04/04/23 04/05/23 04/05/23 Range/Units 09:30 11:04 11:30 WBC (3.8-10.6) k/uL RBC (3.80-5.40) m/uL Hgb (11.4-16.0) gm/dL Hct (34.0-46.0) % RDW (11.5-15.5) % Plt Count (150-450) k/uL Neutrophils # (1.3-7.7) k/uL APTT (22.0-30.0) sec ABG pH 7.46 H (7.35-7.45) ABG pO2 77 L (83-108) mmHg ABG HCO3 31 H (21-25) mmol/L ABG Total CO2 33 H (19-24) mmol/L Carbon Dioxide (22-30) mmol/L BUN (7-17) mg/dL Creatinine (0.52-1.04) mg/dL Glucose (74-99) mg/dL POC Glucose (mg/dL) 207 H (70-110) mg/dL Heparin-Ind Plt Ab Scrn 2.100 H (<0.4) OD 04/05/23 04/05/23 04/05/23 Range/Units 16:27 16:30 19:00 WBC (3.8-10.6) k/uL RBC (3.80-5.40) m/uL Hgb (11.4-16.0) gm/dL Hct (34.0-46.0) % RDW (11.5-15.5) % Plt Count (150-450) k/uL Neutrophils # (1.3-7.7) k/uL APTT 32.7 H 51.5 H (22.0-30.0) sec ABG pH (7.35-7.45) ABG pO2 (83-108) mmHg ABG HCO3 (21-25) mmol/L ABG Total CO2 (19-24) mmol/L Carbon Dioxide (22-30) mmol/L BUN (7-17) mg/dL Creatinine (0.52-1.04) mg/dL Glucose (74-99) mg/dL POC Glucose (mg/dL) 185 H (70-110) mg/dL Heparin-Ind Plt Ab Scrn (<0.4) OD 04/05/23 04/06/23 04/06/23 Range/Units 22:51 00:31 02:00 WBC (3.8-10.6) k/uL RBC (3.80-5.40) m/uL Hgb (11.4-16.0) gm/dL Hct (34.0-46.0) % RDW (11.5-15.5) % Plt Count (150-450) k/uL Neutrophils # (1.3-7.7) k/uL APTT 58.6 H 65.3 H (22.0-30.0) sec ABG pH (7.35-7.45) ABG pO2 (83-108) mmHg ABG HCO3 (21-25) mmol/L ABG Total CO2 (19-24) mmol/L Carbon Dioxide (22-30) mmol/L BUN (7-17) mg/dL Creatinine (0.52-1.04) mg/dL Glucose (74-99) mg/dL POC Glucose (mg/dL) 152 H (70-110) mg/dL Heparin-Ind Plt Ab Scrn (<0.4) OD 04/06/23 04/06/23 04/06/23 Range/Units 05:10 05:10 05:10 WBC 12.1 H (3.8-10.6) k/uL RBC 2.82 L (3.80-5.40) m/uL Hgb 8.2 L (11.4-16.0) gm/dL Hct 25.6 L (34.0-46.0) % RDW 17.1 H (11.5-15.5) % Plt Count 78 L (150-450) k/uL Neutrophils # 8.8 H (1.3-7.7) k/uL APTT 70.4 H (22.0-30.0) sec ABG pH (7.35-7.45) ABG pO2 (83-108) mmHg ABG HCO3 (21-25) mmol/L ABG Total CO2 (19-24) mmol/L Carbon Dioxide 32 H (22-30) mmol/L BUN 50 H (7-17) mg/dL Creatinine 1.11 H (0.52-1.04) mg/dL Glucose 139 H (74-99) mg/dL POC Glucose (mg/dL) (70-110) mg/dL Heparin-Ind Plt Ab Scrn (<0.4) OD 04/06/23 04/06/23 Range/Units 05:13 05:52 WBC (3.8-10.6) k/uL RBC (3.80-5.40) m/uL Hgb (11.4-16.0) gm/dL Hct (34.0-46.0) % RDW (11.5-15.5) % Plt Count (150-450) k/uL Neutrophils # (1.3-7.7) k/uL APTT (22.0-30.0) sec ABG pH 7.49 H (7.35-7.45) ABG pO2 70 L (83-108) mmHg ABG HCO3 33 H (21-25) mmol/L ABG Total CO2 34 H (19-24) mmol/L Carbon Dioxide (22-30) mmol/L BUN (7-17) mg/dL Creatinine (0.52-1.04) mg/dL Glucose (74-99) mg/dL POC Glucose (mg/dL) 156 H (70-110) mg/dL Heparin-Ind Plt Ab Scrn (<0.4) OD Assessment and Plan Assessment: . Acute kidney injury secondary to hemodynamic ATN/shock. Creatinine 1.29 on admission and peaked at 2.43 this admission - 1.1 today. Slightly increased over the last couple of days. No hydronephrosis noted on kidney ultrasound. Left kidney not visualized. 2. Chronic kidney disease stage IIIa with baseline creatinine 1-1.2 secondary to nephrosclerosis/diabetic kidney disease. 3. History of hypercalcemia maintained on Sensipar. Sensipar was held as calcium was on the lower side but it increased to 10.2 with albumin 2.6 and Sensipar was restarted. Calcium 9.9 today 4. Acute blood loss anemia status post blood transfusions this admission. 5. Hyperkalemia secondary to acute kidney injury, hyperglycemia, acidosis and acute blood loss. Improved 6. Status post knee revision 03/28/2023. 7. Diabetes mellitus. 8. Questionable PE with severe pulmonary hypertension and moderate to severe tricuspid regurgitation. Off of IV heparin 9. Lower extremity edema. 10. Hypernatremia from lack of oral water intake and free water deficit, improved Plan: Continue to diurese patient Increase amlodipine to 5 mg daily Repeat labs in a.m.
--- NOTE | 2023-04-06 10:47 | P.PN ---
Subjective Progress Note Date: 04/06/23 According to the patient nurse this patient is being titrated down and the patient is slowly waking up. Patient has not had any imaging since she was not stable yesterday but they'll attempt to assess if she is stable for imaging Objective - Vital Signs Vital signs: Vital Signs Temp 99.7 F H 04/06/23 08:00 Pulse 79 04/06/23 10:30 Resp 32 H 04/06/23 10:30 BP 160/63 04/05/23 05:30 Pulse Ox 93 L 04/06/23 10:00 FiO2 40 04/06/23 10:34 Intake & Output 04/05/23 04/06/23 04/06/23 18:59 06:59 18:59 Intake Total 1638.864 0707.746 481.593 Output Total 3000 1460 525 Balance -1528.357 -383.254 -43.407 Weight 124.7 kg 128.7 kg Intake: IV 230 200 80 Piperacillin-Tazobactam 3 100 .375 gm In Sodium Chloride 0.9% 100 ml @ 25 mls/hr IVPB Q8HR [facility] Rx# :[id number] Sodium Chloride 0.9% 1, 130 200 80 000 ml @ 20 mls/hr IV . Q24H [facility] Rx#:[id number] Intake, IV Titration 493.643 468.746 235.593 Amount Argatroban 50 mg In 138.782 50 Sodium Chloride 0.9% 50 ml @ 1 MCG/KG/MIN 7.482 mls/hr IV .Q6H41M [facility] Rx# :[id number] Clevidipine Butyrate 25 103.834 40.734 mg In Empty Bag 1 bag @ 1 MG/HR 2 mls/hr IV .Q24H [facility] Rx#:[id number] Magnesium Sulfate-D5w Pmx 100 1 gm In Dextrose/Water 1 100ml.bag @ 100 mls/hr IVPB ONCE ONE Rx#: [id number] propofoL 1,000 mg In 389.809 289.230 85.593 Empty Bag 1 bag @ 15 MCG/ KG/MIN 10.41 mls/hr IV . Q9H37M [facility] Rx#:[id number] Oral 0 Tube Feeding 348 348 116 Other 400 60 50 Output: Urine 3000 1460 525 Other: Voiding Method Indwelling Catheter Indwelling Catheter Indwelling Catheter ABP, PAP, CO, CI - Last Documented Arterial Blood Pressure 162/57 - Exam GENERAL: The patient is lying in bed and is not in acute distress. Lung: Intubated on Vent. NEUROLOGICAL: Examination is limited because of condition and sedation. Is on IV Propofol 30mcg/kg/min. IV Cleviprex was turned off 5 minutes ago. Higher mental function: Is comatose. GCS 5( E3, VT1, M1). Cranial nerves: Opens her eyes to verbal stimuli. The pupils are round, equal and reactive to light. Is breathing over the vent. No facial weakness. Motor: The strength is hard to assess. No spontaneous movement noted throughout. Cerebellum: Unable to assess. Sensation: Unable to assess light touch. But to painful stimuli, grimaces face throughout. - Labs CBC & Chem 7: 04/06/23 05:10 04/06/23 05:10 Labs: Abnormal Lab Results - Last 24 Hours (Table) 04/04/23 04/05/23 04/05/23 Range/Units 09:30 11:04 11:30 WBC (3.8-10.6) k/uL RBC (3.80-5.40) m/uL Hgb (11.4-16.0) gm/dL Hct (34.0-46.0) % RDW (11.5-15.5) % Plt Count (150-450) k/uL Neutrophils # (1.3-7.7) k/uL APTT (22.0-30.0) sec ABG pH 7.46 H (7.35-7.45) ABG pO2 77 L (83-108) mmHg ABG HCO3 31 H (21-25) mmol/L ABG Total CO2 33 H (19-24) mmol/L Carbon Dioxide (22-30) mmol/L BUN (7-17) mg/dL Creatinine (0.52-1.04) mg/dL Glucose (74-99) mg/dL POC Glucose (mg/dL) 207 H (70-110) mg/dL Heparin-Ind Plt Ab Scrn 2.100 H (<0.4) OD 04/05/23 04/05/23 04/05/23 Range/Units 16:27 16:30 19:00 WBC (3.8-10.6) k/uL RBC (3.80-5.40) m/uL Hgb (11.4-16.0) gm/dL Hct (34.0-46.0) % RDW (11.5-15.5) % Plt Count (150-450) k/uL Neutrophils # (1.3-7.7) k/uL APTT 32.7 H 51.5 H (22.0-30.0) sec ABG pH (7.35-7.45) ABG pO2 (83-108) mmHg ABG HCO3 (21-25) mmol/L ABG Total CO2 (19-24) mmol/L Carbon Dioxide (22-30) mmol/L BUN (7-17) mg/dL Creatinine (0.52-1.04) mg/dL Glucose (74-99) mg/dL POC Glucose (mg/dL) 185 H (70-110) mg/dL Heparin-Ind Plt Ab Scrn (<0.4) OD 04/05/23 04/06/23 04/06/23 Range/Units 22:51 00:31 02:00 WBC (3.8-10.6) k/uL RBC (3.80-5.40) m/uL Hgb (11.4-16.0) gm/dL Hct (34.0-46.0) % RDW (11.5-15.5) % Plt Count (150-450) k/uL Neutrophils # (1.3-7.7) k/uL APTT 58.6 H 65.3 H (22.0-30.0) sec ABG pH (7.35-7.45) ABG pO2 (83-108) mmHg ABG HCO3 (21-25) mmol/L ABG Total CO2 (19-24) mmol/L Carbon Dioxide (22-30) mmol/L BUN (7-17) mg/dL Creatinine (0.52-1.04) mg/dL Glucose (74-99) mg/dL POC Glucose (mg/dL) 152 H (70-110) mg/dL Heparin-Ind Plt Ab Scrn (<0.4) OD 04/06/23 04/06/23 04/06/23 Range/Units 05:10 05:10 05:10 WBC 12.1 H (3.8-10.6) k/uL RBC 2.82 L (3.80-5.40) m/uL Hgb 8.2 L (11.4-16.0) gm/dL Hct 25.6 L (34.0-46.0) % RDW 17.1 H (11.5-15.5) % Plt Count 78 L (150-450) k/uL Neutrophils # 8.8 H (1.3-7.7) k/uL APTT 70.4 H (22.0-30.0) sec ABG pH (7.35-7.45) ABG pO2 (83-108) mmHg ABG HCO3 (21-25) mmol/L ABG Total CO2 (19-24) mmol/L Carbon Dioxide 32 H (22-30) mmol/L BUN 50 H (7-17) mg/dL Creatinine 1.11 H (0.52-1.04) mg/dL Glucose 139 H (74-99) mg/dL POC Glucose (mg/dL) (70-110) mg/dL Heparin-Ind Plt Ab Scrn (<0.4) OD 04/06/23 04/06/23 Range/Units 05:13 05:52 WBC (3.8-10.6) k/uL RBC (3.80-5.40) m/uL Hgb (11.4-16.0) gm/dL Hct (34.0-46.0) % RDW (11.5-15.5) % Plt Count (150-450) k/uL Neutrophils # (1.3-7.7) k/uL APTT (22.0-30.0) sec ABG pH 7.49 H (7.35-7.45) ABG pO2 70 L (83-108) mmHg ABG HCO3 33 H (21-25) mmol/L ABG Total CO2 34 H (19-24) mmol/L Carbon Dioxide (22-30) mmol/L BUN (7-17) mg/dL Creatinine (0.52-1.04) mg/dL Glucose (74-99) mg/dL POC Glucose (mg/dL) 156 H (70-110) mg/dL Heparin-Ind Plt Ab Scrn (<0.4) OD Assessment and Plan Assessment: * Altered mental status, likely due to toxic metabolic encephalopathy. As well as some component of encephalopathy due to sedation induced (Propofol and Cleviprex)---slight improvement with sedation titration down. * Status post fall, with right femur fracture, status post surgery 03/28/2023 * Possible PE versus fat embolism, with subsequent significant hemodynamic instability, right heart strain * Acute severe blood loss anemia status post transfusion * Status post acute hypotensive shock from blood loss anemia * Acute kidney injury * COPD * Diabetes * Hyperlipidemia * Hypertension * Pneumonia * Obesity * X tobacco use * History of right knee arthroplasty in fall of 2021 Plan: * EEG: As abnormal. Tobacco slowing suggestive of mild to moderate encephalopathy. Otherwise there is no focal slowing, epileptiform discharges or seizure on the EEG. * CT head, when able to be performed. At present patient is very unstable, not able to lay flat for any testing. * Medical management as per IM, critical care and other specialties The plan is discussed with the patient's nurse. Time with Patient: Less than 30
--- NOTE | 2023-04-06 11:02 | P.PN ---
Progress Note - Text Progress Note Date: 04/06/23 - Chief Complaint Right leg injury History of presenting complaint: very pleasant 72-year-old patient of Dr. Persaud. Chronic stable medical conditions include diabetes, hyperlipidemia, hypertension, primary osteoarthritis, peripheral neuropathy, bilateral breast cancer with bilateral mastectomy, IBS, diverticulosis, chronic low back arthritis. Anxiety depression. Diagnosis of ulcerative colitis for about 15 years. On Asacol 800 mg 3 times a day. In November 2020 did undergo coloscopy by Dr. Moreno. Normal- appearing colon. Patient does follow with Dr. Angi Stallings. On an average has about 10 bowel movements a day. Present for years. Patient today was at the [facility]. Troponin went and fell down. Computed tomography scan showing a comminuted fracture distal metaphyseal femur adjacent to the knee processes. Some external rotation. Right lower extremity - brace. Patient's able to get about the house.. No chest pain or palpitation. March 27: Reclining bed. Pain control. Oral intake fair. Pending surgery tomorrow. Discussed with patient has would've the bedside. March 15: Patient seen by me this morning prior to surgery. In bed. Comfortable. Nothing by mouth. Pending surgery this afternoon. March 29: ICU. Yesterday patient underwent right revision total knee replacement the distal femoral replacement age for periprosthetic distal femur fracture. Estimated blood loss was about 600 mL. In the perioperative area patient blood pressure was running low. Patient was transferred to the ICU. Patient did receive 2 units of blood yesterday. Today patient is intubated. FiO2 85% and a PEEP of 10. Drips include we will affect, propofol, Nimbex. Patient started IV heparin for underlying suspicion of pulmonary embolism. Accu-Cheks running high has put on insulin drip. Oral gastric tube. Patient's and 2 daughters at the bedside. Discussed at length. Patient renal function also worsened. Hyperkalemia. Given bicarbonate. Being followed by [facility], nephrology. Another unit of blood pending. Hemoglobin this morning 6.7. Patient has increased right-sided heart pressures suspicious for therefore PE/fat embolism. March 30: ICU. Spiked a fever. Advair 250/50 5 and a PEEP of 8. On the ventilator. Sinus rhythm. Drips include Nimbex, propofol, IV heparin, IV insulin, IV norepinephrine. Right leg in a brace. IV ceftriaxone. March 31: ICU. On the ventilator. FiO2 45 PEEP of 5. 2 feeding at 30 mL an hour. Telemetry: Sinus rhythm. Drips include insulin, propofol, epinephrine, IV heparin. IV insulin. Cultures have been negative up to now. Remains in empirically on IV ceftriaxone. April 01: ICU. Patient underwent bronchoscopy by Dr. Babcock. 4 atelectasis on the chest x-ray. No rashes thick secretions removed from the left lower lobe. Likely mucous plugging. Currently on the ventilator with FiO2 100 a PEEP of 8. Sinus rhythm on the telemetry. Drips include IV levo fed, propofol, IV heparin, insulin. Having white secretions. IV ceftriaxone. Discussed with the patient's out of the bedside. Patient still remains critical. April 02: ICU. Overnight, last admin the nurse give medications through the OG tube medications came out through the mouth. 2 feeding was cutback. Started on a smaller rate. Remains on the ventilator. [place] to 65 and a PEEP of 12. Levo fed was discontinued yesterday afternoon. On propofol. IV heparin, IV insulin. April 03: ICU. Remains on the ventilator. FiO2 65 PEEP of 12. Patient is off propofol. Still remained lethargic. Neurology consulted. Also includes IV heparin drip. Family including father and 2 daughters at the bedside. G-tube feeding at goal. Discuss CODE STATUS with the family. Nurse called back later that they have decided to make the patient no code April 04: ICU. On the ventilator. FiO2 50 to PEEP of 12. Having a lot of thick and clear secretions through the ET tube. Remains lethargic. Code EEG done today. On cleviprex, propofol, IV heparin changed over to Lovenox subcu twice a day. and the daughter the bedside. April 05: ICU. Ventilator. FiO2 40 PEEP of 12. Drips include cleviprex and propofol. Secretions through the G-tube. Getting 2 feeding. Discussed with the 2 daughters at the bedside. HEENT negative for seizure activity. Shows encephalopathy. Patient positive for heparin-induced platelet antibody. Consult hematology. April 06: ICU. Ventilator. FiO2 40 and a PEEP of 12. Sliding some secretions. 2 feeding at 29 mL an hour. Getting IV Lasix 40 mg twice a day. On propofol 35. Had a small BM yesterday. Patient is started on argatroban yesterday. Taken off cleviprex Active Medications Hydrocodone Bitart/Acetaminophen (Hydrocodone/Apap 5-325mg 1 Each Tab) 1 each PO Q4HR PRN PRN Reason: Moderate Pain (Scale 4 to 6) Last Admin: 04/05/23 13:54 Dose: 1 each Albuterol/Ipratropium (Ipratropium-Albuterol 3 Ml Neb) 3 ml INHALATION RT-Q4H [facility] Last Admin: 04/06/23 10:01 Dose: 3 ml Amlodipine Besylate (Amlodipine 5 Mg Tab) 5 mg PO DAILY [facility] Chlorhexidine Gluconate (Chlorhexidine Gluconate 15 Ml Cup) 15 ml MUCOUS MEM BID [facility] Last Admin: 04/06/23 08:21 Dose: 15 ml Cinacalcet (Cinacalcet 30 Mg Tab) 30 mg PO MoTh@0900 [facility] Last Admin: 04/04/23 09:16 Dose: 30 mg Dextrose/Water (Dextrose 50% Syringe 50 Ml) 25 ml IVP PER PROTOCOL PRN; Protocol PRN Reason: Hypoglycemia Dextrose/Water (Dextrose 50% Syringe 50 Ml) 50 ml IVP PER PROTOCOL PRN; Protocol PRN Reason: Hypoglycemia Ferrous Sulfate (Ferrous Sulfate 325 Mg Tab) 325 mg PO DAILY [facility] Last Admin: 04/06/23 08:21 Dose: Not Given Fluoxetine HCl (Fluoxetine Hcl 20 Mg Cap) 40 mg PO DAILY [facility] Last Admin: 04/06/23 08:20 Dose: 40 mg Furosemide (Furosemide 10 Mg/Ml 4 Ml Vial) 40 mg IV Q12HR [facility] Last Admin: 04/06/23 09:45 Dose: 40 mg Propofol 1,000 mg/ IV Solution 100 mls @ 10.41 mls/hr IV .Q9H37M [facility]; Protocol Last Admin: 04/06/23 08:31 Dose: 40 mcg/kg/min, 27.76 mls/hr Sodium Chloride (Saline 0.9%) 1,000 mls @ 20 mls/hr IV .Q24H [facility] Last Admin: 04/06/23 05:24 Dose: 20 mls/hr Piperacillin Sod/Tazobactam (Sod 3.375 gm/ Sodium Chloride) 100 mls @ 25 mls/hr IVPB Q8HR [facility]; Protocol Last Admin: 04/06/23 08:21 Dose: 25 mls/hr Fentanyl Citrate 1,000 mcg/ (Sodium Chloride) 100 mls @ 6.745 mls/hr IV .O22H35F [facility] Last Admin: 04/06/23 05:11 Dose: Not Given Clevidipine 25 mg/ IV Solution 50 mls @ 2 mls/hr IV .Q24H [facility]; Protocol Last Admin: 04/06/23 03:12 Dose: 2 mg/hr, 4 mls/hr Argatroban 50 mg/ Sodium (Chloride) 50 mls @ 7.482 mls/hr IV .Q6H41M [facility]; Protocol Last Admin: 04/06/23 08:38 Dose: 2.5 mcg/kg/min, 18.705 mls/hr Insulin Aspart (Insulin Aspart (Novolog) 100 Unit/Ml Vial) 0 unit SQ Q6H [facility]; Protocol Last Admin: 04/06/23 05:22 Dose: 3 unit Insulin Detemir (Insulin Detemir (Levemir) 100 Unit/Ml Syr) 48 unit SQ HS@1900 [facility] Last Admin: 04/05/23 18:16 Dose: 48 unit Lorazepam (Lorazepam 0.5 Mg Tab) 0.5 mg PO Q6HR PRN PRN Reason: Anxiety Last Admin: 04/01/23 05:03 Dose: 0.5 mg Metoprolol Tartrate (Metoprolol Tartrate 25 Mg Tab) 25 mg PO BID [facility] Last Admin: 04/06/23 08:20 Dose: 25 mg Miscellaneous Information (Potassium Replacement Protocol 1 Each Misc) 1 each MISCELLANE DAILY PRN; Protocol PRN Reason: Per Protocol Miscellaneous Information (Magnesium Replacement Protocol 1 Each Misc) 1 each MISCELLANE DAILY PRN; Protocol PRN Reason: Per Protocol Naloxone HCl (Naloxone 0.4 Mg/Ml 1 Ml Vial) 0.2 mg IV Q2M PRN PRN Reason: Opioid Reversal Nystatin (Nystatin 100,000 Unit/Ml Susp 500,000 Unit/5 Ml Cup) 500,000 unit PO QID [facility]; Protocol Last Admin: 04/06/23 08:21 Dose: 500,000 unit Olanzapine (Olanzapine 5 Mg Tab) 5 mg PO HS [facility] Last Admin: 04/05/23 21:26 Dose: 5 mg Ondansetron HCl (Ondansetron 4 Mg/2 Ml Vial) 4 mg IVP Q8HR PRN PRN Reason: Nausea And Vomiting Pantoprazole Sodium (Pantoprazole 40 Mg/10 Ml Vial) 40 mg IV DAILY [facility] Last Admin: 04/06/23 08:21 Dose: 40 mg Senna (Sennosides 8.6 Mg Tab) 8.6 mg PO BID [facility] Last Admin: 04/06/23 08:20 Dose: 8.6 mg Senna/Docusate Sodium (Sennosides-Docusate Sodium 1 Each Tab) 2 each PO HS [facility] Last Admin: 04/05/23 21:26 Dose: 2 each Past medical history to include: Diabetes mellitus type 2, hyperlipidemia, hypertension, osteoarthritis, peripheral neuropathy, bilateral breast cancer with bilateral mastectomies, ulcerative colitis-colonoscopy has shown normal colon and biopsy was negative., diverticulosis, chronic low back pain and arthritis, anxiety depression. COVID- 19 Social history: . Smoked for 41 years stopped in 2005. No alcohol Physical examination: VITAL SIGNS: 99.7, 88, 32, 160/52, 92% on the ventilator GENERAL: , intubated. OG tube EYES: Pupils equal. Conjunctiva normal. HEENT: External appearance of nose and ears normal, oral cavity OG tube NECK: JVD unable to assess; masses not palpable. HEART: First and second heart sounds are normal; edema present LUNGS: Respiratory rate increased, decreased breath sounds ABDOMEN: Soft, nontender, liver spleen not palpable, no masses palpable. PSYCH: Unable to assess MUSCULAR skeletal: Evidence of OA especially in the hands . Right lower extremity in a brace INVESTIGATIONS, reviewed in the clinical context: Heparin-induced platelet antibody: 2.1 April 05: WBC 11.2 hemoglobin 7.9 platelets 64 potassium 4.1 BUN 49 creatinine 0.95 April 04: White count 10.5 hemoglobin 7.7 platelets 80 potassium 4.9 creatinine 0.99 March 30: White count 15.4 hemoglobin 8.8 platelets 298 potassium 3.6 BUN 53 creatinine 1.99 AST 1842 ALT 208 2-D echocardiogram: Moderate increased LVH. EF 50-55%. Severe right ventricle dilatation generalized right ventricle hypokinesis. Severe pulmonary hypertension. Moderate to severe tricuspid regurgitation. Ultrasound venous Doppler lower extremity: Limited views. No obvious DVT. Ultrasound kidney: Right kidney: Mild renal cortical thinning. Left kidney obscured. March 29: White count 20.6 hemoglobin 6.7 platelets 300 ABG: PH 7.13 pCO2 62. Potassium 5.1 BUN 40 creatinine 1.91 blood glucose 372 UA: Noted March 28: White count 9.1 hemoglobin 9.5 potassium 4.4 BUN 36 creatinine 1.37 White count 12.2 hemoglobin 11.5 platelets 510 sodium 140 potassium 4 BUN 34 creatinine 1.9 EKG tracing personally reviewed by me-normal sinus rhythm. Chest x-ray film personally reviewed by me-: Portable. No obvious infiltrate Knee x-ray/femur CT: Comminuted fracture distal metadiaphyseal femur adjacent to a knee processes. Displacement of the distal fracture fragment from the proximal fracture Assessment and plan: -Fall leading to acute Comminuted fracture distal metadiaphyseal femur adjacent to a knee processes. Displacement of the distal fracture fragment from the proximal fracture. March 28:right revision total knee replacement the distal femoral replacement age for periprosthetic distal femur fracture. By Dr. Stack. EBL 600 mL -Metabolic/anoxic encephalopathy. Not improving Neurology consulted. EEG negative for seizure -Mucous plugging with left lower lobe atelectasis. Status post bronchoscopy and removal of sticks tenacious secretions. 04/01/2023 -Acute severe blood loss anemia from surgery Patient received 3 units of blood -Hyperkalemia from acute kidney injury: Better -Thrombocytopenia. Positive heparin-induced antibody Remains off IV heparin . Started on Argotroban -Acute cor pulmonale with underlying suspicious for fat embolism/pulmonary embolism with acute right ventricle dilatation and moderate to severe TR. -Acute hypotensive shock from blood loss anemia.: Better Receive 3 units of blood. IV levo fed discontinued -Acute kidney injury likely cardiorenal syndrome/ATN. From hypotension and anemia.: Better Follow with nephrology. Admission creatinine was 1.29. Peaked at 2.43. 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 / Amaryl. Increase Levemir to 52 units at night -Hyperlipidemia Lipitor, TriCor -Anxiety not otherwise specified Klonopin 0.5 mg 3 times a day -Depression Zyprexa 5 mg daily at bedtime, Prozac 40 mg a day -Hyperuricemia Allopurinol -Essential hypertension, currently hypotensive -Acute hepatitis likely ischemic, improvement -Primary osteoarthritis Pain medications when necessary -Chronic kidney disease stage III from diabetic nephropathy and hypertensive nephrosclerosis Follow renal function -DO NOT RESUSCITATE
[2023-04-06 11:11] LABS: Glucose,Whole Blood 168 mg/dL (70-110)
[2023-04-06] MEDS ORDERED: amLODIPine 2.5 MG TAB PO STA (11:18)
--- NOTE | 2023-04-06 11:35 | XR ---
EXAMINATION TYPE: XR chest 1V portable DATE OF EXAM: 04/06/2023 COMPARISON: 04/05/2023 HISTORY: SOB, Follow Up FINDINGS: Indwelling tubes and catheters are unchanged. No change in bibasilar opacities. Stable appearance of the cardio-mediastinal structures at this time. Pleural effusion unchanged. IMPRESSION: 1. Stable portable chest. Clinical correlation and follow up until resolution is recommended.
[2023-04-06 11:45] LABS: INR 2.3 (<1.2); Prothrombin Time 22.4 sec (9.0-12.0)
[2023-04-06] MEDS ORDERED: FLUCONAZOLE ORAL SUSP 1,400 MG/35 ML BOTTLE PO SCH (16:00)
[2023-04-06] MEDS: FLUCONAZOLE ORAL SUSP 1,400 MG/35 ML BOTTLE PO SCH (16:18)
[2023-04-06 17:43] LABS: Glucose,Whole Blood 163 mg/dL (70-110)
--- NOTE | 2023-04-06 18:17 | P.CONS ---
History of Present Illness - Reason for Consult Consult date: 04/06/23 HIT positive Requesting physician: Nickolas Crespo - Chief Complaint fall, femur fx - History of Present Illness Patient is a 72-year-old female with multiple comorbidities. We were consulted for positive HIT antibody. Patient initially presented to the ER after a fall and right lower extremity pain at which time she was diagnosed with a femur fracture. She was taken to surgery on 03/28 for repair and had 650cc blood loss during procedure. Patient has had a complicated hospitalization due to hypotensive shock, cor pulmonale, and PE. Patient was seen in the ICU today. She remains on ventilation but is stable at this time. Patient was started on heparin for suspected pulmonary embolism vs fat embolism. 5 days after initiation of heparin platelets were noted to begin dropping. During admission platelets were ranging from 250,000-400,000. HIT antibody was ordered and was positive at 2.1, at which time we were consulted for further management. Heparin has been discontinued and patient was started on argatroban. Review of Systems 10 point ROS is negative except as stated in the HPI Past Medical History Past Medical History: Diabetes Mellitus, Hypertension, Osteoarthritis (OA), Pneumonia, Sleep Apnea/CPAP/BIPAP Additional Past Medical History / Comment(s): covid 10/14/20-10/21/20, hypercalcemia, bilateral mastectomy but told after it was not cancer, colitis, varicose veins, "irregular urination" History of Any Multi-Drug Resistant Organisms: None Reported Past Surgical History: Breast Surgery, Hysterectomy, Joint Replacement, Tonsillectomy Additional Past Surgical History / Comment(s): Bilateral mastectomies, total L and R knee arthroplasty, colonoscopies, bilateral cataract removals/lens implants. right knee replacement 07/23/22 Past Anesthesia/Blood Transfusion Reactions: Motion Sickness Past Psychological History: Anxiety, Depression Additional Psychological History / Comment(s): . Smoking Status: Former smoker Past Alcohol Use History: None Reported Additional Past Alcohol Use History / Comment(s): Pt atarted smoking in 1964 and quit in 2005. Past Drug Use History: None Reported - Past Family History Sister(s) Family Medical History: Myocardial Infarction (OR) Additional Family Medical History / Comment(s): TWO SISTERS HAD AN OR Father Family Medical History: Cancer Additional Family Medical History / Comment(s): Father of stomach cancer. Mother Family Medical History: Cancer Additional Family Medical History / Comment(s): . Medications and Allergies Home Medications Medication Instructions Recorded Confirmed Type FLUoxetine HCL [PROzac] 40 mg PO DAILY 05/03/14 03/26/23 History Fenofibrate Nanocrystallized 145 mg PO DAILY 05/03/14 03/26/23 History [Tricor] OLANZapine [ZyPREXA] 5 mg PO HS 05/03/14 03/26/23 History clonazePAM [KlonoPIN] 0.5 mg PO TID 05/03/14 03/26/23 History allopurinoL [Zyloprim] 100 mg PO DAILY 10/13/20 03/26/23 History Metoprolol Succinate (ER) [Toprol 25 mg PO DAILY 12/10/20 03/26/23 History XL] Atorvastatin [Lipitor] 10 mg PO DAILY 06/11/22 03/26/23 History Multivit with Calcium,Iron,Min 1 tab PO DAILY 06/11/22 03/26/23 History [Women's Multivitamin] Pioglitazone [Actos] 15 mg PO DAILY 06/11/22 03/26/23 History Cinacalcet [Sensipar] 30 mg PO MOTH 03/26/23 03/26/23 History Ferrous Sulfate [Feosol] 325 mg PO DAILY 03/26/23 03/26/23 History Glimepiride [Amaryl] 2 mg PO DAILY 03/26/23 03/26/23 History Insulin Glargine,Hum.rec.anlog 56 units SQ 03/26/23 03/26/23 History [Lantus Solostar Pen] Magnesium Oxide [Mag-Ox] 400 mg PO DAILY 03/26/23 03/26/23 History Mesalamine [Mesalamine Dr] 800 mg PO TID 03/26/23 03/26/23 History Allergies Allergy/AdvReac Type Severity Reaction Status Date / Time No Known Allergies Allergy Verified 03/28/23 17:41 Physical Exam Vitals: Vital Signs Temp Pulse Resp Pulse Ox FiO2 04/06/23 17:00 89 32 H 94 L 04/06/23 16:57 88 26 H 04/06/23 16:50 85 26 H 04/06/23 16:34 40 04/06/23 16:30 86 32 H 94 L 04/06/23 16:00 99.0 F 84 32 H 95 40 04/06/23 15:30 85 32 H 93 L 04/06/23 15:00 85 42 H 95 04/06/23 14:30 80 32 H 95 04/06/23 14:00 81 32 H 95 50 04/06/23 13:30 84 32 H 92 L 04/06/23 13:00 86 32 H 92 L 04/06/23 12:45 86 26 H 04/06/23 12:30 86 21 93 L 04/06/23 12:25 85 32 H 04/06/23 12:17 40 04/06/23 12:00 99.0 F 85 32 H 92 L 40 04/06/23 11:30 84 32 H 94 L 04/06/23 11:00 79 32 H 95 04/06/23 10:34 40 04/06/23 10:30 79 32 H 95 04/06/23 10:01 77 32 H 04/06/23 10:00 77 32 H 93 L 04/06/23 09:46 40 04/06/23 09:30 75 32 H 95 04/06/23 09:00 79 32 H 92 L 04/06/23 08:30 88 32 H 92 L 04/06/23 08:00 99.7 F H 88 32 H 92 L 40 04/06/23 07:30 87 32 H 92 L 04/06/23 07:00 90 32 H 91 L 40 04/06/23 06:30 92 32 H 92 L 40 04/06/23 06:00 93 32 H 93 L 40 04/06/23 05:30 92 32 H 93 L 40 04/06/23 05:00 90 32 H 93 L 04/06/23 04:41 87 04/06/23 04:30 86 32 H 92 L 04/06/23 04:23 90 40 04/06/23 04:00 99.7 F H 89 32 H 92 L 40 04/06/23 03:30 90 32 H 92 L 04/06/23 03:00 89 32 H 92 L 04/06/23 02:30 89 32 H 92 L 04/06/23 02:00 88 32 H 92 L 40 04/06/23 01:30 88 32 H 92 L 40 04/06/23 01:00 88 32 H 93 L 40 04/06/23 00:47 86 04/06/23 00:37 84 40 04/06/23 00:30 84 32 H 94 L 40 04/06/23 00:00 99.2 F 84 32 H 92 L 40 04/05/23 23:30 82 32 H 92 L 40 04/05/23 23:00 82 32 H 91 L 40 04/05/23 22:30 81 32 H 90 L 40 04/05/23 22:00 87 32 H 90 L 40 04/05/23 21:30 93 32 H 92 L 40 04/05/23 21:00 91 32 H 90 L 40 04/05/23 20:44 92 04/05/23 20:38 40 04/05/23 20:36 90 04/05/23 20:30 92 32 H 91 L 40 04/05/23 20:00 99.5 F 91 32 H 92 L 40 04/05/23 19:30 93 32 H 91 L 40 04/05/23 19:00 90 32 H 93 L 04/05/23 18:30 89 32 H 91 L 04/05/23 18:00 89 32 H 90 L Intake and Output 04/06/23 04/06/23 04/06/23 06:59 14:59 22:59 Intake Total 627.667 970.899 312.548 Output Total 740 1300 350 Balance -112.333 -329.101 -37.452 Intake: IV 160 160 60 Sodium Chloride 0.9% 1, 160 160 60 000 ml @ 20 mls/hr IV . Q24H [facility] Rx#:[id number] Intake, IV Titration 205.667 478.899 115.548 Amount Argatroban 50 mg In 100.000 145.827 50 Sodium Chloride 0.9% 50 ml @ 1 MCG/KG/MIN 7.482 mls/hr IV .Q6H41M [facility] Rx# :[id number] Clevidipine Butyrate 25 5.667 32.333 22.867 mg In Empty Bag 1 bag @ 1 MG/HR 2 mls/hr IV .Q24H [facility] Rx#:[id number] Magnesium Sulfate-D5w Pmx 100 1 gm In Dextrose/Water 1 100ml.bag @ 100 mls/hr IVPB ONCE ONE Rx#: [id number] propofoL 1,000 mg In 100 200.739 42.681 Empty Bag 1 bag @ 15 MCG/ KG/MIN 10.41 mls/hr IV . Q9H37M [facility] Rx#:[id number] Tube Feeding 232 232 87 Other 30 100 50 Output: Urine 740 1300 350 Other: Voiding Method Indwelling Catheter Indwelling Catheter Indwelling Catheter Weight 128.7 kg ABP, PAP, CO, CI - Last 8 Hours Arterial Blood Pressure 169/55 Arterial Blood Pressure 152/53 Arterial Blood Pressure 146/52 Arterial Blood Pressure 139/51 Arterial Blood Pressure 150/54 Arterial Blood Pressure 156/53 Arterial Blood Pressure 158/54 Arterial Blood Pressure 135/45 Arterial Blood Pressure 136/46 Arterial Blood Pressure 155/51 Arterial Blood Pressure 147/49 Arterial Blood Pressure 169/55 Arterial Blood Pressure 153/55 Arterial Blood Pressure 146/52 Arterial Blood Pressure 162/57 - Constitutional General appearance: no acute distress, obese - Respiratory ventilated - Cardiovascular Rhythm: regular Heart sounds: normal: S1, S2 Abnormal Heart Sounds: no systolic murmur, no diastolic murmur, no rub, no S3 Gallop, no S4 Gallop, no click, no other leg Peripheral Edema: bilateral: 3+ (diffuse edema of bilateral upper and lower extremities ) - Gastrointestinal General gastrointestinal: soft - Integumentary no cyanosis, ecchymosis or necrosis noted - Neurologic sedated, unresponsive Results CBC & Chem 7: 04/06/23 05:10 04/06/23 05:10 Labs: Abnormal Lab Results - Last 24 Hours (Table) 04/05/23 04/05/23 04/06/23 Range/Units 19:00 22:51 00:31 WBC (3.8-10.6) k/uL RBC (3.80-5.40) m/uL Hgb (11.4-16.0) gm/dL Hct (34.0-46.0) % RDW (11.5-15.5) % Plt Count (150-450) k/uL Neutrophils # (1.3-7.7) k/uL PT (9.0-12.0) sec INR (<1.2) APTT 51.5 H 58.6 H (22.0-30.0) sec ABG pH (7.35-7.45) ABG pO2 (83-108) mmHg ABG HCO3 (21-25) mmol/L ABG Total CO2 (19-24) mmol/L Carbon Dioxide (22-30) mmol/L BUN (7-17) mg/dL Creatinine (0.52-1.04) mg/dL Glucose (74-99) mg/dL POC Glucose (mg/dL) 152 H (70-110) mg/dL Albumin (3.5-5.0) g/dL 04/06/23 04/06/23 04/06/23 Range/Units 02:00 05:10 05:10 WBC 12.1 H (3.8-10.6) k/uL RBC 2.82 L (3.80-5.40) m/uL Hgb 8.2 L (11.4-16.0) gm/dL Hct 25.6 L (34.0-46.0) % RDW 17.1 H (11.5-15.5) % Plt Count 78 L (150-450) k/uL Neutrophils # 8.8 H (1.3-7.7) k/uL PT (9.0-12.0) sec INR (<1.2) APTT 65.3 H (22.0-30.0) sec ABG pH (7.35-7.45) ABG pO2 (83-108) mmHg ABG HCO3 (21-25) mmol/L ABG Total CO2 (19-24) mmol/L Carbon Dioxide 32 H (22-30) mmol/L BUN 50 H (7-17) mg/dL Creatinine 1.11 H (0.52-1.04) mg/dL Glucose 139 H (74-99) mg/dL POC Glucose (mg/dL) (70-110) mg/dL Albumin (3.5-5.0) g/dL 04/06/23 04/06/23 04/06/23 Range/Units 05:10 05:13 05:52 WBC (3.8-10.6) k/uL RBC (3.80-5.40) m/uL Hgb (11.4-16.0) gm/dL Hct (34.0-46.0) % RDW (11.5-15.5) % Plt Count (150-450) k/uL Neutrophils # (1.3-7.7) k/uL PT (9.0-12.0) sec INR (<1.2) APTT 70.4 H (22.0-30.0) sec ABG pH 7.49 H (7.35-7.45) ABG pO2 70 L (83-108) mmHg ABG HCO3 33 H (21-25) mmol/L ABG Total CO2 34 H (19-24) mmol/L Carbon Dioxide (22-30) mmol/L BUN (7-17) mg/dL Creatinine (0.52-1.04) mg/dL Glucose (74-99) mg/dL POC Glucose (mg/dL) 156 H (70-110) mg/dL Albumin (3.5-5.0) g/dL 04/06/23 04/06/23 04/06/23 Range/Units 11:00 11:00 11:09 WBC (3.8-10.6) k/uL RBC (3.80-5.40) m/uL Hgb (11.4-16.0) gm/dL Hct (34.0-46.0) % RDW (11.5-15.5) % Plt Count (150-450) k/uL Neutrophils # (1.3-7.7) k/uL PT 22.4 H (9.0-12.0) sec INR 2.3 H (<1.2) APTT (22.0-30.0) sec ABG pH (7.35-7.45) ABG pO2 (83-108) mmHg ABG HCO3 (21-25) mmol/L ABG Total CO2 (19-24) mmol/L Carbon Dioxide (22-30) mmol/L BUN (7-17) mg/dL Creatinine (0.52-1.04) mg/dL Glucose (74-99) mg/dL POC Glucose (mg/dL) 168 H (70-110) mg/dL Albumin 2.7 L (3.5-5.0) g/dL Venous US: report reviewed Assessment and Plan (1) HIT (heparin-induced thrombocytopenia) Current Visit: Yes Status: Acute Code(s): D75.829 - HEPARIN-INDUCED THROMBOCYTOPENIA, UNSPECIFIED SNOMED Code(s): 94401083 (2) Fracture of distal end of right femur Current Visit: Yes Status: Acute Code(s): S72.401A - UNSP FRACTURE OF LOWER END OF RIGHT FEMUR, INIT FOR CLOS FX SNOMED Code(s): 865155502 Plan: HIT: -HIT antibody positive, 2.1, with 89% probability of JOEL positivity. Patient was started heparin for suspected PE s/p surgery and platelets were noted to decrease 5 days after initiation. Platelets were in the 250,000-400,000 during admission prior to drop. Platelets 78,000 today. No reported episodes of bleeding -Decrease in platelets 5-10 days after initiation of heparin, with platelets in the 50-80K range is consistent with HIT -Serotinin release assay and DIC workup ordered -Heparin has been discontinued and patient was started on argatroban. Due to concern for prothrombic state, patient should be kept on argatroban until platelets normalize -CBC daily. Will closely monitor platelets to maintain platelets above 50,000 attests: I have performed H&P and developed impression and plan of care for patient, discussed with dictator. I agree with dictated note, documented as a scribe
[2023-04-06] MEDS: INSULIN DETEMIR (LEVEMIR) 100 UNIT/ML SYR SQ SCH (18:43)
[2023-04-06] MEDS: SENNOSIDES-DOCUSATE SODIUM 1 EACH TAB PO SCH (20:20)
[2023-04-06] MEDS: OLANZapine 5 MG TAB PO SCH (20:20)
[2023-04-06 23:46] LABS: Glucose,Whole Blood 138 mg/dL (70-110)
[2023-04-07] MEDS: PIPERACILLIN-TAZOBACTAM 3.375 GM in SODIUM CHLORIDE 0.9% 100 ML IVPB SCH ×4 (00:05→23:30)
[2023-04-07] MEDS: IPRATROPIUM-ALBUTEROL 3 ML NEB INHALATION SCH ×7 (00:08→23:23)
[2023-04-07] MEDS: HYDROcodone/APAP 5-325MG 1 EACH TAB PO PRN ×2 (01:41→22:30)
[2023-04-07] MEDS: ARGATROBAN 50 MG in SODIUM CHLORIDE 0.9% 50 ML IV SCH ×7 (02:40→22:31)
[2023-04-07 05:16] LABS: ABG Base Excess 9.8 mmol/L; ABG HCO3 32 mmol/L (21-25); ABG Oxygen Saturation 98.6 % (94-97); ABG PCO2 38 mmHg (35-45); ABG PH 7.54 (7.35-7.45); ABG PO2 96 mmHg (83-108); ABG TCO2 34 mmol/L (19-24); Allen Test Performed? Yes
[2023-04-07 06:09] LABS: Glucose,Whole Blood 124 mg/dL (70-110)
[2023-04-07] MEDS: INSULIN ASPART (NovoLOG) 100 UNIT/ML VIAL SQ SCH ×4 (06:09→23:26)
[2023-04-07] MEDS: SODIUM CHLORIDE 0.9% 1,000 ML IV SCH (06:09)
[2023-04-07 06:25] LABS: Anisocytosis Slight; Basophils # (A) 0.1 k/uL (0-0.2); Basophils % (A) 1 %; Eosinophils # (A) 0.3 k/uL (0-0.7); Eosinophils % (A) 3 %; HCT 25.4 % (34.0-46.0); Hypochromasia Moderate; Lymphocytes # (A) 1.9 k/uL (1.0-4.8); Lymphocytes % (A) 20 %; MCH 28.9 pg (25.0-35.0); MCHC 31.5 g/dL (31.0-37.0); MCV 91.6 fL (80.0-100.0); Mean Platelet Volume 9.4; Monocytes # (A) 0.7 k/uL (0-1.0); Monocytes % (A) 7 %; Neutrophils # (A) 6.3 k/uL (1.3-7.7); Neutrophils % (A) 66 %; Platelet Count 114 k/uL (150-450); RBC 2.77 m/uL (3.80-5.40); RDW 16.6 % (11.5-15.5); WBC 9.6 k/uL (3.8-10.6)
--- NOTE | 2023-04-07 07:07 | XR ---
EXAMINATION TYPE: XR chest 1V portable DATE OF EXAM: 04/07/2023 Comparison: 04/06/2023 Clinical History: 72-year-old female mechanical ventilator Findings: ETT and NG tubes are satisfactory. Left subclavian CVC tip obscured, probably in the region of the up per right atrium. Heart remains borderline in size. Patient obliqued towards the left. There seems to be improving left basilar opacity. Mild interstitial prominence remains but also shows some improvem ent especially at the right base. Impression: Correlate for improving pulmonary vascular congestion. Improving, now residual small left pleural eff usion with adjacent atelectasis and/or consolidation.
[2023-04-07] MEDS: LORazepam 0.5 MG TAB PO PRN (07:13)
[2023-04-07 07:21] LABS: Potassium 3.7 mmol/L (3.5-5.1)
[2023-04-07] MEDS ORDERED: POTASSIUM BICARBONATE/CIT AC 20 MEQ TABLET.EFF NG-TUBE SCH ×2 (08:00→19:00)
[2023-04-07] MEDS ORDERED: amLODIPine 5 MG TAB PO SCH (09:00)
[2023-04-07] MEDS ORDERED: cloNIDine 0.2 MG/24HR PATCH TRANSDERM SCH (09:00)
[2023-04-07] MEDS ORDERED: FLUCONAZOLE ORAL SUSP 1,400 MG/35 ML BOTTLE PO SCH (09:00)
[2023-04-07] MEDS: CHLORHEXIDINE GLUCONATE 15 ML CUP MUCOUS MEM SCH ×2 (10:13→20:00)
[2023-04-07] MEDS: METOPROLOL TARTRATE 25 MG TAB PO SCH ×2 (10:14→20:00)
[2023-04-07] MEDS: FUROSEMIDE 10 MG/ML 4 ML VIAL IV SCH ×2 (10:16→20:00)
[2023-04-07] MEDS: FERROUS SULFATE 325 MG TAB PO SCH (10:16)
[2023-04-07] MEDS: amLODIPine 10 MG TAB PO SCH (10:16)
[2023-04-07] MEDS: FLUoxetine HCL 20 MG CAP PO SCH (10:16)
[2023-04-07] MEDS: NYSTATIN 100,000 UNIT/ML SUSP 500,000 UNIT/5 ML CUP PO SCH ×4 (10:17→20:01)
[2023-04-07] MEDS: CINACALCET 30 MG TAB PO SCH (10:19)
[2023-04-07] MEDS: PANTOPRAZOLE 40 MG/10 ML VIAL IV SCH (10:22)
[2023-04-07] MEDS: SENNOSIDES 8.6 MG TAB PO SCH ×2 (10:22→19:50)
--- NOTE | 2023-04-07 10:37 | P.PN ---
Subjective Progress Note Date: 04/07/23 Principal diagnosis: Respiratory failure. Patient was reevaluated today on 04/01/2023, remains in the ICU, intubated and mechanically ventilated. She is now on assist control rate of 32 tidal volume of 450 FiO2 45% and PEEP of 5 ABG showed a pO2 of 65 pCO2 43 pH of 7.34 hence Fi O2 was increased to 50%. Chest x-ray showed atelectasis of the left lower lobe as the patient underwent bronchoscopy today, and suction some tenacious secretions in the left lower lobe bronchus. No evidence of any other significant findings. Fluid obtained was sent for diagnostic studies. Patient remains on propofol at 20 mcg/kg/m she is also on heparin drip for presumptive pulmonary embolism she is receiving insulin at 5.3 units per hour norepinephrine at low-dose, however this was discontinued once the patient woke up and evaluated off propofol. Patient remains on Rocephin empirically, cultures have been negative so far. Awaiting cultures from the BAL of the left lower lobe today. Obviously the patient is not quite ready for weaning off propofol she was noted to be tachypneic, tachycardic, and her blood pressure was as high as 200 systolic. Hence no further weaning to be done today. And her ventilator settings will be adjusted accordingly after bronchoscopy and BAL. Labs today were reviewed she has a bit of leukocytosis with WBC count of 16.9 her PTT is therapeutic at 45.7 and electrolytes are normal BUN is down to 46 creatinine is down to 1.20 will continue to monitor heparin for now and monitor her renal status, may eventually recommend CT angiogram of the chest to confirm whether the patient had thromboembolic disease/pulmonary embolism. Pro calcitonin level was 1.91, nonetheless patient remains on Rocephin. So far urine cultures and blood cultures and sputum cultures have been negative Patient was reevaluated today on 04/02/2023, remains in the ICU, intubated and mechanically ventilated. Patient had a bit of a setback last night, apparently there was some issues with the nasogastric tube, and it was felt that the patient may have aspirated some of her feedings from the nasogastric tube, hence this tube was removed and another tube was placed, follow-up chest x-ray showed adequate placement of the orogastric tube. In the meantime the patient desat urated and she required increase in her FiO2. She went up as high as 75% PEEP was increased to 8 and today I recommended increasing the PEEP to 12 and FiO2 down to 65%. And advised titration. Chest x-ray continues to show left lower lobe consolidation. Right side seems to be relatively clear. ABG this morning showed a pO2 of 84 pCO2 51 pH of 7.39. Patient is on propofol at 50 mcg/kg/m she is also on insulin at 4.25 units per hour vital HPI 29 mL/h she is off norepinephrine. Considering the aspiration situation I recommended that we change antibiotics to Zosyn cultures from the BAL of the left lower lobe are pending. Her vent settings changed to assist control rate of 32 tidal volume 450 FiO2 65% and PEEP of 12. WBC count is 10.6 hemoglobin is 7.2 PTT is 35.6, electrolytes are normal BUN is 53 creatinine 1.[address] angiogram of the chest in the next 24-48 hours in the meantime the patient seems to be tolerating heparin well Reevaluated today on 04/03/2023, patient remains in the ICU, intubated and mechanically ventilated. Her assist-control rate is 3 to tidal volume is 450 FiO2 60% and I cut down today to 50% PEEP is at 12. Patient remains on propofol at 50 mcg/kg/m remains on heparin drip, she is also on vital HPI 29 mL per hour. Antibiotics aguirre remains on Zosyn, cultures have been negative along. Even though washing from the BAL of the left lower lobe remains nondiagnostic. ABG showed a pO2 of 108 pCO2 42 pH of 7.45 hence FiO2 was cut down from 60% to 50%. Patient has been off sedation, she does not seem to be appropriate, she opens her eyes, but does not follow any instructions, she seems to be confused, and encephalopathic. Hence I initiated a neurological consultation, I believe the patient may have sustained fat embolism to explain her mental status. Would like to have a CT of the brain and CT of the chest, however the patient cannot lay flat, and she desaturates significantly upon laying flat, hence we'll hold on both for now. Her urine output is excellent and she was given more Lasix a day. Her pain seems to be under control and her blood pressure seems to respond well to Dilaudid every 2 hours as needed. Considering her ABG is marginal and considering that the patient is requiring relatively high PEEP I am not yet ready to extubate the patient also concerned about her mental status. WBC count is 10.9 hemoglobin is 7.4. PTT is 53.6. BUN is 56 creatinine is 1.07. Considering CT angiogram of the chest but because of her inability to lay flat and she desaturates easily him holding on the CT angiogram of the chest for now. Progress note dated 04/04/2023. 72-year-old female admitted back on March 26. She had a fall and fractured her right femur. She went to the operating room on March 28, and was intubated on that day. She was thought to possibly have pulmonary embolism, or fat embolism syndrome. Because of her instability, she's not been able to go for a CT angiogram. Currently, she remains on the ventilator, at volume assist control, rate 32, , tidal volume 450, FiO2 50%, and PEEP of 12. Blood gases show pO2 of 91, pCO2 44, and pH is 7.44. She remains on propofol at 75 mcg/kg/m, IV heparin, 0.9 at KVO, and vital, at 23 mL an hour, which is goal. The nurse has a number of issues today and redressed some all. For her blood pressure elevation, we start her on Cleveprex, to be titrated slowly systolic blood pressures less than 160 and the mean is less than 100. We had backed the patien t's Toprol-XL. In addition, because of fluid retention, we'll give the patient Lasix 60 mg IV push. We will dose daily based on her I's and O's. We also will discontinue heparin, and started on Lovenox 120 mg subcu every 12 hours. This is because her platelet count has declined to 80,000. In addition, we will order that heparin-induced thrombocytopenia antibodies. White count 10.5, hemoglobin 7.7, hematocrit 23.8, and platelet count 80,000. Sodium 142, potassium 4.9, chlorides 108, CO2 28, BUN 54, creatinine 0.99. Microbiologic sampling has been negative. Chest x-ray shows changes of COPD, with a small left-sided pleural effusion, and retrocardiac atelectasis or consolidation. Progress note dated 04/05/2023. 72-year-old female admitted back on March 26. She had a fall and a fractured right femur. She went to the operating room on March 28, and was intubated on that day. She was thought to have possibly a pulmonary embolism, or fat embolism syndrome. Because of instability, the patient has not been able to go down for a CT angiogram. She did have Dopplers of the lower extremity that were negative. She remains on mechanical ventilator. She is on the volume assist control, rate 32, tidal volume 450, FiO2 50%, and a PEEP of 12. Arterial blood gases show pO2 of 68, pCO2 45, and a pH is 7.45. The patient remains on Cleveprex at 4 mg an hour, propofol at 50 mcg/kg/m, saline at 10 mL an hour, and vital, at 29 mL an hour, which is goal. White count 11.2, hemoglobin 7.9, hematocrit 24.9, and platelet count 64,000. Sodium 139, potassium 4.1, chlorides 104, CO2 29, BUN 49, and creatinine 0.95. Glucose 168. Microbiologic data is negative. Chest x-rays consistent with mild fluid overload. There may be some basilar infiltrates or atelectasis. Progress note dated 04/06/2023. 72-year-old female admitted back on March 26. Should a fall with a fractured right femur. She went to the operating room 2 days later on the , to have the fracture repaired. She was placed on the ventilator at that time, and has been on the ventilator since. She was thought to possibly have either fat embolism syndrome, or a pulmonary embolism. She's been too unstable, to take down for a computed tomography scan of the chest, and now, her renal function is such that the dye, with injured her kidneys even further. Also, yesterday, because of dropping platelet counts, we ordered the heparin-induced thrombocytopenia panel, and it was positive, so I started the patient on A rgatroban, at 2.5 mcg/kg/m. The platelet counts actually a bit higher today. She remains on the ventilator, volume assist control, rate 32, out of I'm 450, FiO2 40%, and PEEP of 12. Blood gases show pO2 of 70, pCO2 43, and a pH is 7.49. His blood gases consistent with a very mild metabolic alkalosis. In addition to Argatroban, the patient is on propofol at 40 mcg/kg/m, and Cleveprex at 2 mg an hour, which may be discontinued. She's getting tube feedings with vital at 29 mL an hour, which is goal. Today, we will lessen her sedation, for a daily interruption of sedation. She is likely not ready for a spontaneous breathing trial. White count 12.1, hemoglobin 8.2, hematocrit 25.6, and p latelet count 78,000. Yesterday was 64,000. The patient's sodium is 141, potassium 4.1, chlorides 101, CO2 32, BUN 50, creatinine 1.11. Microbiologic studies are all negative thus far. Chest x-ray this morning shows atelectasis or infiltrate at the right lung base, and some consolidation or fluid at the left lung base. Progress note dated 04/07/2023. 72-year-old female admitted back on March 26, status post fall, with a fractured right femur. The patient went to the operating room for repair, 2 days later on the , and subsequently has been on mechanical ventilator, and has not been able to be weaned off. The patient has had a number of issues including elevated blood pressures, requiring multiple blood pressure medications including IV Cleveprex, the potential for the possibility of pulmonary embolism versus fat embolism syndrome, high oxygen and PEEP requirements, and more rec ently, the development of heparin-induced thrombocytopenia. Ventilator settings include assist control, rate 32, tidal volume 450, FiO2 40%, with 10. Blood gases show pO2 of 96, pCO2 38, and a pH is 7.53. The patient has a metabolic alkalosis, secondary to volume contraction, and mild hypokalemia. The patient's getting saline at 20 mL an hour, propofol at 20 mcg/kg/m, argatroban at 2.5 mcg/kg/m, and vital high protein at goal, which is 63 mL an hour. White count 9.6, hemoglobin 8, hematocrit 25.4, and platelet count is now up to 114,000. PTT is 68.9. Sodium 142, potassium 3.7, chlorides 104, CO2 33, BUN 53, and creatinine 1.06. The patient's chest x-ray shows improving pulmonary vascular congestion. Objective - Vital Signs Vital signs: Vital Signs Temp 99.2 F 04/07/23 08:00 Pulse 87 04/07/23 09:36 Resp 32 H 04/07/23 09:36 BP 160/63 04/07/23 09:15 Pulse Ox 95 04/07/23 09:15 FiO2 40 04/07/23 09:00 Intake & Output 04/06/23 04/07/23 04/07/23 18:59 06:59 18:59 Intake Total 2811.571 3924.157 263.731 Output Total 1820 1775 430 Balance -432.380 -544.843 -166.269 Weight 129.2 kg Intake: IV 240 340 60 Piperacillin-Tazobactam 3 100 .375 gm In Sodium Chloride 0.9% 100 ml @ 25 mls/hr IVPB Q8HR [facility] Rx# :[id number] Sodium Chloride 0.9% 1, 240 240 60 000 ml @ 20 mls/hr IV . Q24H [facility] Rx#:[id number] Intake, IV Titration 649.620 372.157 144.731 Amount Argatroban 50 mg In 195.827 200 50 Sodium Chloride 0.9% 50 ml @ 1 MCG/KG/MIN 7.482 mls/hr IV .Q6H41M [facility] Rx# :[id number] Clevidipine Butyrate 25 55.200 16 mg In Empty Bag 1 bag @ 1 MG/HR 2 mls/hr IV .Q24H [facility] Rx#:[id number] Magnesium Sulfate-D5w Pmx 100 1 gm In Dextrose/Water 1 100ml.bag @ 100 mls/hr IVPB ONCE ONE Rx#: [id number] propofoL 1,000 mg In 298.593 156.157 94.731 Empty Bag 1 bag @ 15 MCG/ KG/MIN 10.41 mls/hr IV . Q9H37M [facility] Rx#:[id number] Tube Feeding 348 348 29 Other 150 170 30 Output: Urine 1820 1775 430 Other: Voiding Method Indwelling Catheter Indwelling Catheter # Bowel Movements 1 ABP, PAP, CO, CI - Last Documented Arterial Blood Pressure 170/56 - Exam No acute distress, sedated, with an orally placed endotracheal tube and NG tube. HEENT examination is grossly unremarkable. Neck supple. Full range of motion. No adenopathy thyromegaly or neck vein distention. Cardiovascular examination reveals regular rhythm rate. S1-S2 normal. No S3 or S4. No discernible murmur noted. Heart sounds are distant. Heart rate 87 bpm. Lungs reveal scattered bilateral rhonchi. No wheezes or crackles. Breath sounds equal. Saturation is 95 % Abdomen obese, with bowel sounds. Extremities are intact. No cyanosis or clubbing. There is diffuse edema and anasarca. Skin is without rash or lesion. Neurologic examination reveals a sedated patient, they can open her eyes. - Labs CBC & Chem 7: 04/07/23 06:06 04/07/23 06:06 Labs: Abnormal Lab Results - Last 24 Hours (Table) 04/06/23 04/06/23 04/06/23 Range/Units 11:00 11:00 11:09 RBC (3.80-5.40) m/uL Hgb (11.4-16.0) gm/dL Hct (34.0-46.0) % RDW (11.5-15.5) % Plt Count (150-450) k/uL PT 22.4 H (9.0-12.0) sec INR 2.3 H (<1.2) APTT (22.0-30.0) sec ABG pH (7.35-7.45) ABG HCO3 (21-25) mmol/L ABG Total CO2 (19-24) mmol/L ABG O2 Saturation (94-97) % Carbon Dioxide (22-30) mmol/L BUN (7-17) mg/dL Creatinine (0.52-1.04) mg/dL Glucose (74-99) mg/dL POC Glucose (mg/dL) 168 H (70-110) mg/dL Albumin 2.7 L (3.5-5.0) g/dL 04/06/23 04/06/23 04/07/23 Range/Units 17:42 23:43 05:10 RBC (3.80-5.40) m/uL Hgb (11.4-16.0) gm/dL Hct (34.0-46.0) % RDW (11.5-15.5) % Plt Count (150-450) k/uL PT (9.0-12.0) sec INR (<1.2) APTT (22.0-30.0) sec ABG pH 7.54 H (7.35-7.45) ABG HCO3 32 H (21-25) mmol/L ABG Total CO2 34 H (19-24) mmol/L ABG O2 Saturation 98.6 H (94-97) % Carbon Dioxide (22-30) mmol/L BUN (7-17) mg/dL Creatinine (0.52-1.04) mg/dL Glucose (74-99) mg/dL POC Glucose (mg/dL) 163 H 138 H (70-110) mg/dL Albumin (3.5-5.0) g/dL 04/07/23 04/07/23 04/07/23 Range/Units 06:06 06:06 06:06 RBC 2.77 L (3.80-5.40) m/uL Hgb 8.0 L (11.4-16.0) gm/dL Hct 25.4 L (34.0-46.0) % RDW 16.6 H (11.5-15.5) % Plt Count 114 L (150-450) k/uL PT (9.0-12.0) sec INR (<1.2) APTT 68.9 H (22.0-30.0) sec ABG pH (7.35-7.45) ABG HCO3 (21-25) mmol/L ABG Total CO2 (19-24) mmol/L ABG O2 Saturation (94-97) % Carbon Dioxide 33 H (22-30) mmol/L BUN 53 H (7-17) mg/dL Creatinine 1.06 H (0.52-1.04) mg/dL Glucose 114 H (74-99) mg/dL POC Glucose (mg/dL) (70-110) mg/dL Albumin (3.5-5.0) g/dL 04/07/23 Range/Units 06:07 RBC (3.80-5.40) m/uL Hgb (11.4-16.0) gm/dL Hct (34.0-46.0) % RDW (11.5-15.5) % Plt Count (150-450) k/uL PT (9.0-12.0) sec INR (<1.2) APTT (22.0-30.0) sec ABG pH (7.35-7.45) ABG HCO3 (21-25) mmol/L ABG Total CO2 (19-24) mmol/L ABG O2 Saturation (94-97) % Carbon Dioxide (22-30) mmol/L BUN (7-17) mg/dL Creatinine (0.52-1.04) mg/dL Glucose (74-99) mg/dL POC Glucose (mg/dL) 124 H (70-110) mg/dL Albumin (3.5-5.0) g/dL Assessment and Plan Assessment: Acute hypoxemic and hypercapnic respiratory failure, possibly secondary to pulmonary embolism, or fat embolism syndrome. Status post intubation and mechanical ventilation, beginning on March 28. Postop day #10, status post repair of comminuted right femur fracture. 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 Hypotension, which may relate to PE, or FES, resolved. Acute kidney injury. Acute blood loss anemia. Lactic acidemia secondary to hypotension and hypoperfusion. Shock liver. Previous right total knee replacement. Morbid obesity. History of obstructive sleep apnea syndrome. Previous history of tobacco use. Left lower lobe atelectasis versus pneumonia. Status post bronchoscopy and BAL, postop day #6. Mental status changes, likely related to metabolic encephalopathy. Plan: Plan dated 04/04/2023. The patient is started back on Toprol, which she was taking as an outpatient, and we also added IV Cleveprex, is a dihydropyridine calcium channel alisha, for better blood pressure support. I put targets of systolics less than 160, and mean arterial pressures of less than 100 to the nurse. The patient will get Lasix 60 mg IV push once. We'll DC the IV heparin in favor of Lovenox 120 mg subcu every 12 hours. HIT antibodies are ordered. Labs, x-rays, medications are all reviewed. We will continue to follow make recommendations along the way. Prognosis is guarded. Plan dated 04/05/2023. The patient's blood pressure is under better control. The patient continues on Cleveprex, and propofol. I attempted to call the , Khoa, but he did not brick picker the phone. The nurse will restart the family. Labs, x-rays, m edications are all reviewed. The patient was intubated on March 28. Because of relatively higher FiO2's, and PEEP levels, the patient is not a candidate for extubation. By the end of the week, the patient is to continue as a full code, we'll talk to the family about tracheostomy and PEG tube placement. Prognosis is certainly guarded. We will continue to follow the platelet count. She was switched from heparin to low molecular weight heparin yesterday. Plan dated 04/06/2023. Currently, the patient remains on propofol, and a small dose of Cleveprex. She's also getting tube feedings at goal. The heparin-induced thrombocytopenia panel came back positive, and the patient was started on Argatroban. The nurse will lessen the patient's sedation today, to evaluate her mental status. In ad dition, I had a long discussion with the daughter, Jyoti, and spoke to her about the various issues including the renal dysfunction, the pluses and minuses of doing a CT angiogram, and the problem with the platelets. In addition, we spoke about the possibility of tracheostomy and PEG tube placement. She mentioned that the patient would not once that. Because of last day and a half is been a bit better, will hold off for now. Labs, x-rays, and medications are reviewed. Prognosis is guarded. We will continue to follow make recommendations along the way. Plan dated 04/07/2023. The patient appears to be doing a bit better from the standpoint of her platelet count. I forcefully, we did a daily interruption of sedation today, the patient became very unstable, with lower saturations, and acute elevations in blood pressure. The patient was re-sedated. I will notify the family of this, we speak tomorrow. We will try to get the patient's potassium 4.5 mEq per liter. This will help the patient's metabolic alkalosis. Also, for additional blood pressure support, we added a clonidine patch, TTS #2. Labs, x-rays, medications are reviewed. Prognosis is guarded. 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 Time with Patient: Greater than 30
--- NOTE | 2023-04-07 10:59 | P.PN ---
Subjective Patient is seen for follow-up for acute kidney injury and top of chronic kidney disease. Renal function has improved, Patient is currently being diuresed. Serum creatinine staying at about 1 mg/dL. Sedation has been decreased. Patient is following commands. Urine output at 100-150 ML per hour. Objective - Vital Signs Vital signs: Vital Signs Temp 99.2 F 04/07/23 08:00 Pulse 82 04/07/23 10:00 Resp 32 H 04/07/23 10:00 BP 160/63 04/07/23 10:00 Pulse Ox 94 L 04/07/23 10:00 FiO2 40 04/07/23 10:00 Intake & Output 04/06/23 04/07/23 04/07/23 18:59 06:59 18:59 Intake Total 7714.258 9730.157 283.731 Output Total 1820 1775 680 Balance -432.380 -544.843 -396.269 Weight 129.2 kg Intake: IV 240 340 80 Piperacillin-Tazobactam 3 100 .375 gm In Sodium Chloride 0.9% 100 ml @ 25 mls/hr IVPB Q8HR [facility] Rx# :[id number] Sodium Chloride 0.9% 1, 240 240 80 000 ml @ 20 mls/hr IV . Q24H [facility] Rx#:[id number] Intake, IV Titration 649.620 372.157 144.731 Amount Argatroban 50 mg In 195.827 200 50 Sodium Chloride 0.9% 50 ml @ 1 MCG/KG/MIN 7.482 mls/hr IV .Q6H41M [facility] Rx# :[id number] Clevidipine Butyrate 25 55.200 16 mg In Empty Bag 1 bag @ 1 MG/HR 2 mls/hr IV .Q24H [facility] Rx#:[id number] Magnesium Sulfate-D5w Pmx 100 1 gm In Dextrose/Water 1 100ml.bag @ 100 mls/hr IVPB ONCE ONE Rx#: [id number] propofoL 1,000 mg In 298.593 156.157 94.731 Empty Bag 1 bag @ 15 MCG/ KG/MIN 10.41 mls/hr IV . Q9H37M [facility] Rx#:[id number] Tube Feeding 348 348 29 Other 150 170 30 Output: Urine 1820 1775 680 Other: Voiding Method Indwelling Catheter Indwelling Catheter # Bowel Movements 1 ABP, PAP, CO, CI - Last Documented Arterial Blood Pressure 154/51 - Exam Patient is intubated and on the vent Awake and following commands FiO2 at 50% Examination of the heart S1 and S2 Examination of the lungs bilateral breath sounds are heard Abdomen is soft obese Examination of lower extremities shows edema 2+ bilaterally upper and lower extremities - Labs CBC & Chem 7: 04/07/23 06:06 04/07/23 06:06 Labs: Abnormal Lab Results - Last 24 Hours (Table) 04/06/23 04/06/23 04/06/23 Range/Units 11:00 11:00 11:09 RBC (3.80-5.40) m/uL Hgb (11.4-16.0) gm/dL Hct (34.0-46.0) % RDW (11.5-15.5) % Plt Count (150-450) k/uL PT 22.4 H (9.0-12.0) sec INR 2.3 H (<1.2) APTT (22.0-30.0) sec ABG pH (7.35-7.45) ABG HCO3 (21-25) mmol/L ABG Total CO2 (19-24) mmol/L ABG O2 Saturation (94-97) % Carbon Dioxide (22-30) mmol/L BUN (7-17) mg/dL Creatinine (0.52-1.04) mg/dL Glucose (74-99) mg/dL POC Glucose (mg/dL) 168 H (70-110) mg/dL Albumin 2.7 L (3.5-5.0) g/dL 04/06/23 04/06/23 04/07/23 Range/Units 17:42 23:43 05:10 RBC (3.80-5.40) m/uL Hgb (11.4-16.0) gm/dL Hct (34.0-46.0) % RDW (11.5-15.5) % Plt Count (150-450) k/uL PT (9.0-12.0) sec INR (<1.2) APTT (22.0-30.0) sec ABG pH 7.54 H (7.35-7.45) ABG HCO3 32 H (21-25) mmol/L ABG Total CO2 34 H (19-24) mmol/L ABG O2 Saturation 98.6 H (94-97) % Carbon Dioxide (22-30) mmol/L BUN (7-17) mg/dL Creatinine (0.52-1.04) mg/dL Glucose (74-99) mg/dL POC Glucose (mg/dL) 163 H 138 H (70-110) mg/dL Albumin (3.5-5.0) g/dL 04/07/23 04/07/23 04/07/23 Range/Units 06:06 06:06 06:06 RBC 2.77 L (3.80-5.40) m/uL Hgb 8.0 L (11.4-16.0) gm/dL Hct 25.4 L (34.0-46.0) % RDW 16.6 H (11.5-15.5) % Plt Count 114 L (150-450) k/uL PT (9.0-12.0) sec INR (<1.2) APTT 68.9 H (22.0-30.0) sec ABG pH (7.35-7.45) ABG HCO3 (21-25) mmol/L ABG Total CO2 (19-24) mmol/L ABG O2 Saturation (94-97) % Carbon Dioxide 33 H (22-30) mmol/L BUN 53 H (7-17) mg/dL Creatinine 1.06 H (0.52-1.04) mg/dL Glucose 114 H (74-99) mg/dL POC Glucose (mg/dL) (70-110) mg/dL Albumin (3.5-5.0) g/dL 04/07/23 Range/Units 06:07 RBC (3.80-5.40) m/uL Hgb (11.4-16.0) gm/dL Hct (34.0-46.0) % RDW (11.5-15.5) % Plt Count (150-450) k/uL PT (9.0-12.0) sec INR (<1.2) APTT (22.0-30.0) sec ABG pH (7.35-7.45) ABG HCO3 (21-25) mmol/L ABG Total CO2 (19-24) mmol/L ABG O2 Saturation (94-97) % Carbon Dioxide (22-30) mmol/L BUN (7-17) mg/dL Creatinine (0.52-1.04) mg/dL Glucose (74-99) mg/dL POC Glucose (mg/dL) 124 H (70-110) mg/dL Albumin (3.5-5.0) g/dL Assessment and Plan Assessment: . Acute kidney injury secondary to hemodynamic ATN/shock. Creatinine 1.29 on admission and peaked at 2.43 this admission - 1.0 today. No hydronephrosis noted on kidney ultrasound. Left kidney not visualized. 2. Chronic kidney disease stage IIIa with baseline creatinine 1-1.2 secondary to nephrosclerosis/diabetic kidney disease. 3. History of hypercalcemia maintained on Sensipar. Sensipar was held as calcium was on the lower side but it increased to 10.2 with albumin 2.6 and Sensipar was restarted. Calcium 9.9 today 4. Acute blood loss anemia status post blood transfusions this admission. 5. Hyperkalemia secondary to acute kidney injury, hyperglycemia, acidosis and acute blood loss. Improved 6. Status post knee revision 03/28/2023. 7. Diabetes mellitus. 8. Questionable PE with severe pulmonary hypertension and moderate to severe tricuspid regurgitation. Off of IV heparin 9. Lower extremity edema. 10. Hypernatremia from lack of oral water intake and free water deficit, improved Plan: Continue to diurese patient Agree with increasing amlodipine Increase free water 200 mL every 6 hours from 50 ML every 6 hours Repeat labs in a.m.
[2023-04-07] MEDS: FLUCONAZOLE ORAL SUSP 1,400 MG/35 ML BOTTLE PO SCH (11:02)
[2023-04-07 12:21] LABS: Glucose,Whole Blood 133 mg/dL (70-110)
--- NOTE | 2023-04-07 12:28 | P.PN ---
Subjective Progress Note Date: 04/07/23 Principal diagnosis: HIT antibody positive At today's visit patient is more alert. She is opening eyes to verbal commands. Family at bedside. Updated family and patient on HIT antibody positive. JOEL pending. DIC work-up is negative. Platelets are improving, 114,000 today. No reported episodes of bleeding. Objective - Vital Signs Vital signs: Vital Signs Temp 99.2 F 04/07/23 08:00 Pulse 74 04/07/23 11:57 Resp 32 H 04/07/23 11:57 BP 160/63 04/07/23 10:00 Pulse Ox 94 L 04/07/23 10:00 FiO2 40 04/07/23 11:32 Intake & Output 04/06/23 04/07/23 04/07/23 18:59 06:59 18:59 Intake Total 9627.280 8486.157 303.731 Output Total 1820 1775 1030 Balance -432.380 -544.843 -726.269 Weight 129.2 kg Intake: IV 240 340 100 Piperacillin-Tazobactam 3 100 .375 gm In Sodium Chloride 0.9% 100 ml @ 25 mls/hr IVPB Q8HR [facility] Rx# :[id number] Sodium Chloride 0.9% 1, 240 240 100 000 ml @ 20 mls/hr IV . Q24H [facility] Rx#:[id number] Intake, IV Titration 649.620 372.157 144.731 Amount Argatroban 50 mg In 195.827 200 50 Sodium Chloride 0.9% 50 ml @ 1 MCG/KG/MIN 7.482 mls/hr IV .Q6H41M [facility] Rx# :[id number] Clevidipine Butyrate 25 55.200 16 mg In Empty Bag 1 bag @ 1 MG/HR 2 mls/hr IV .Q24H [facility] Rx#:[id number] Magnesium Sulfate-D5w Pmx 100 1 gm In Dextrose/Water 1 100ml.bag @ 100 mls/hr IVPB ONCE ONE Rx#: [id number] propofoL 1,000 mg In 298.593 156.157 94.731 Empty Bag 1 bag @ 15 MCG/ KG/MIN 10.41 mls/hr IV . Q9H37M [facility] Rx#:[id number] Tube Feeding 348 348 29 Other 150 170 30 Output: Urine 1820 1775 1030 Other: Voiding Method Indwelling Catheter Indwelling Catheter # Bowel Movements 1 ABP, PAP, CO, CI - Last Documented Arterial Blood Pressure 154/51 - Constitutional General appearance: Present: no acute distress, obese - EENT Eyes: Present: anicteric sclerae, EOMI ENT: Present: hearing grossly normal - Respiratory Details: ventilated - Cardiovascular Details: skin warm and dry - Peripheral edema leg Peripheral Edema Comment(s): diffuse upper and lower extremity edema present Peripheral Edema: bilateral: 3+ - Integumentary Integumentary Comment(s): no cyanosis or necrosis noted Integumentary: Present: pale. Absent: cyanotic - Neurologic Neurologic Comment(s): improving, alert to verbal stimuli today, remains on sedation - Musculoskeletal Musculoskeletal: Present: generalized weakness - Labs CBC & Chem 7: 04/07/23 06:06 04/07/23 06:06 Labs: Abnormal Lab Results - Last 24 Hours (Table) 04/06/23 04/06/23 04/06/23 Range/Units 11:00 17:42 23:43 RBC (3.80-5.40) m/uL Hgb (11.4-16.0) gm/dL Hct (34.0-46.0) % RDW (11.5-15.5) % Plt Count (150-450) k/uL APTT (22.0-30.0) sec ABG pH (7.35-7.45) ABG HCO3 (21-25) mmol/L ABG Total CO2 (19-24) mmol/L ABG O2 Saturation (94-97) % Carbon Dioxide (22-30) mmol/L BUN (7-17) mg/dL Creatinine (0.52-1.04) mg/dL Glucose (74-99) mg/dL POC Glucose (mg/dL) 163 H 138 H (70-110) mg/dL Albumin 2.7 L (3.5-5.0) g/dL 04/07/23 04/07/23 04/07/23 Range/Units 05:10 06:06 06:06 RBC 2.77 L (3.80-5.40) m/uL Hgb 8.0 L (11.4-16.0) gm/dL Hct 25.4 L (34.0-46.0) % RDW 16.6 H (11.5-15.5) % Plt Count 114 L (150-450) k/uL APTT (22.0-30.0) sec ABG pH 7.54 H (7.35-7.45) ABG HCO3 32 H (21-25) mmol/L ABG Total CO2 34 H (19-24) mmol/L ABG O2 Saturation 98.6 H (94-97) % Carbon Dioxide 33 H (22-30) mmol/L BUN 53 H (7-17) mg/dL Creatinine 1.06 H (0.52-1.04) mg/dL Glucose 114 H (74-99) mg/dL POC Glucose (mg/dL) (70-110) mg/dL Albumin (3.5-5.0) g/dL 04/07/23 04/07/23 Range/Units 06:06 06:07 RBC (3.80-5.40) m/uL Hgb (11.4-16.0) gm/dL Hct (34.0-46.0) % RDW (11.5-15.5) % Plt Count (150-450) k/uL APTT 68.9 H (22.0-30.0) sec ABG pH (7.35-7.45) ABG HCO3 (21-25) mmol/L ABG Total CO2 (19-24) mmol/L ABG O2 Saturation (94-97) % Carbon Dioxide (22-30) mmol/L BUN (7-17) mg/dL Creatinine (0.52-1.04) mg/dL Glucose (74-99) mg/dL POC Glucose (mg/dL) 124 H (70-110) mg/dL Albumin (3.5-5.0) g/dL Assessment and Plan (1) HIT (heparin-induced thrombocytopenia) Current Visit: Yes Status: Acute Code(s): D75.829 - HEPARIN-INDUCED THROMBOCYTOPENIA, UNSPECIFIED SNOMED Code(s): 48209263 (2) Fracture of distal end of right femur Current Visit: Yes Status: Acute Code(s): S72.401A - UNSP FRACTURE OF LOWER END OF RIGHT FEMUR, INIT FOR CLOS FX SNOMED Code(s): 930915706 Plan: HIT: -HIT antibody positive, 2.1, with 89% probability of JOEL positivity. Patient was started heparin for suspected PE s/p surgery and platelets were noted to decrease 5 days after initiation. Platelets were in the 250,000-400,000 during admission prior to drop. Platelets imporoving, 114,000 today. No reported episodes of bleeding -Decrease in platelets 5-10 days after initiation of heparin, with platelets in the 50-80K range is consistent with HIT -Serotinin release assay pending. DIC workup negative. -Heparin has been discontinued and patient was started on argatroban. Due to concern for prothrombic state, patient should be kept on argatroban until platelets normalize -CBC daily. Will closely monitor platelets
--- NOTE | 2023-04-07 12:58 | P.PN ---
Subjective Progress Note Date: 04/07/23 The patient seen at bedside and according the patient's nurse she went down on the sedation and she stated that the patient was following commands. Patient is still unstable for any imaging yet Objective - Vital Signs Vital signs: Vital Signs Temp 99.5 F 04/07/23 12:00 Pulse 72 04/07/23 12:00 Resp 32 H 04/07/23 12:00 BP 160/63 04/07/23 12:00 Pulse Ox 94 L 04/07/23 12:00 FiO2 40 04/07/23 12:00 Intake & Output 04/06/23 04/07/23 04/07/23 18:59 06:59 18:59 Intake Total 1365.108 5570.157 418.809 Output Total 1820 1775 1380 Balance -432.380 -544.843 -961.191 Weight 129.2 kg Intake: IV 240 340 120 Piperacillin-Tazobactam 3 100 .375 gm In Sodium Chloride 0.9% 100 ml @ 25 mls/hr IVPB Q8HR [facility] Rx# :[id number] Sodium Chloride 0.9% 1, 240 240 120 000 ml @ 20 mls/hr IV . Q24H [facility] Rx#:[id number] Intake, IV Titration 649.620 372.157 239.809 Amount Argatroban 50 mg In 195.827 200 50 Sodium Chloride 0.9% 50 ml @ 1 MCG/KG/MIN 7.482 mls/hr IV .Q6H41M [facility] Rx# :[id number] Clevidipine Butyrate 25 55.200 16 mg In Empty Bag 1 bag @ 1 MG/HR 2 mls/hr IV .Q24H [facility] Rx#:[id number] Magnesium Sulfate-D5w Pmx 100 1 gm In Dextrose/Water 1 100ml.bag @ 100 mls/hr IVPB ONCE ONE Rx#: [id number] propofoL 1,000 mg In 298.593 156.157 189.809 Empty Bag 1 bag @ 15 MCG/ KG/MIN 10.41 mls/hr IV . Q9H37M [facility] Rx#:[id number] Tube Feeding 348 348 29 Other 150 170 30 Output: Urine 1820 1775 1380 Other: Voiding Method Indwelling Catheter Indwelling Catheter # Bowel Movements 1 ABP, PAP, CO, CI - Last Documented Arterial Blood Pressure 155/51 - Exam GENERAL: The patient is lying in bed and is not in acute distress. Lung: Intubated on Vent. NEUROLOGICAL: Examination is limited because of condition and sedation. Is on IV Propofol 30mcg/kg/min. Higher mental function: Is comatose. GCS 5( E3, VT1, M1). Cranial nerves: Opens her eyes to verbal stimuli. The pupils are round, equal and reactive to light. Is breathing over the vent. No facial weakness. Motor: The strength is hard to assess. No spontaneous movement noted throughout. Cerebellum: Unable to assess. Sensation: Unable to assess light touch. But to painful stimuli, grimaces face throughout. - Labs CBC & Chem 7: 04/07/23 06:06 04/07/23 06:06 Labs: Abnormal Lab Results - Last 24 Hours (Table) 04/06/23 04/06/23 04/07/23 Range/Units 17:42 23:43 05:10 RBC (3.80-5.40) m/uL Hgb (11.4-16.0) gm/dL Hct (34.0-46.0) % RDW (11.5-15.5) % Plt Count (150-450) k/uL APTT (22.0-30.0) sec ABG pH 7.54 H (7.35-7.45) ABG HCO3 32 H (21-25) mmol/L ABG Total CO2 34 H (19-24) mmol/L ABG O2 Saturation 98.6 H (94-97) % Carbon Dioxide (22-30) mmol/L BUN (7-17) mg/dL Creatinine (0.52-1.04) mg/dL Glucose (74-99) mg/dL POC Glucose (mg/dL) 163 H 138 H (70-110) mg/dL 04/07/23 04/07/23 04/07/23 Range/Units 06:06 06:06 06:06 RBC 2.77 L (3.80-5.40) m/uL Hgb 8.0 L (11.4-16.0) gm/dL Hct 25.4 L (34.0-46.0) % RDW 16.6 H (11.5-15.5) % Plt Count 114 L (150-450) k/uL APTT 68.9 H (22.0-30.0) sec ABG pH (7.35-7.45) ABG HCO3 (21-25) mmol/L ABG Total CO2 (19-24) mmol/L ABG O2 Saturation (94-97) % Carbon Dioxide 33 H (22-30) mmol/L BUN 53 H (7-17) mg/dL Creatinine 1.06 H (0.52-1.04) mg/dL Glucose 114 H (74-99) mg/dL POC Glucose (mg/dL) (70-110) mg/dL 04/07/23 04/07/23 Range/Units 06:07 12:19 RBC (3.80-5.40) m/uL Hgb (11.4-16.0) gm/dL Hct (34.0-46.0) % RDW (11.5-15.5) % Plt Count (150-450) k/uL APTT (22.0-30.0) sec ABG pH (7.35-7.45) ABG HCO3 (21-25) mmol/L ABG Total CO2 (19-24) mmol/L ABG O2 Saturation (94-97) % Carbon Dioxide (22-30) mmol/L BUN (7-17) mg/dL Creatinine (0.52-1.04) mg/dL Glucose (74-99) mg/dL POC Glucose (mg/dL) 124 H 133 H (70-110) mg/dL Assessment and Plan Assessment: * Altered mental status, likely due to toxic metabolic encephalopathy. As well as some component of encephalopathy due to sedation induced (Propofol and Cleviprex)---slight improvement with sedation titration down and was following commands to her nurse. * Status post fall, with right femur fracture, status post surgery 03/28/2023 * Possible PE versus fat embolism, with subsequent significant hemodynamic instability, right heart strain * Acute severe blood loss anemia status post transfusion * Status post acute hypotensive shock from blood loss anemia * Acute kidney injury * COPD * Diabetes * Hyperlipidemia * Hypertension * Pneumonia * Obesity * X tobacco use * History of right knee arthroplasty in fall of 2021 Plan: * EEG: As abnormal. Tobacco slowing suggestive of mild to moderate encephalopa thy. Otherwise there is no focal slowing, epileptiform discharges or seizure on the EEG. * CT head, when able to be performed. At present patient is very unstable, not able to lay flat for any testing. * Medical management as per IM, critical care and other specialties The plan is discussed with the patient's nurse. Time with Patient: Less than 30
--- NOTE | 2023-04-07 16:14 | P.PN ---
Progress Note - Text Progress Note Date: 04/07/23 - Chief Complaint Right leg injury History of presenting complaint: very pleasant 72-year-old patient of Dr. Persaud. Chronic stable medical conditions include diabetes, hyperlipidemia, hypertension, primary osteoarthritis, peripheral neuropathy, bilateral breast cancer with bilateral mastectomy, IBS, diverticulosis, chronic low back arthritis. Anxiety depression. Diagnosis of ulcerative colitis for about 15 years. On Asacol 800 mg 3 times a day. In November 2020 did undergo coloscopy by Dr. Moreno. Normal- appearing colon. Patient does follow with Dr. Angi Stallings. On an average has about 10 bowel movements a day. Present for years. Patient today was at the [facility]. Troponin went and fell down. Computed tomography scan showing a comminuted fracture distal metaphyseal femur adjacent to the knee processes. Some external rotation. Right lower extremity - brace. Patient's able to get about the house.. No chest pain or palpitation. March 27: Reclining bed. Pain control. Oral intake fair. Pending surgery tomorrow. Discussed with patient has would've the bedside. March 15: Patient seen by me this morning prior to surgery. In bed. Comfortable. Nothing by mouth. Pending surgery this afternoon. March 29: ICU. Yesterday patient underwent right revision total knee replacement the distal femoral replacement age for periprosthetic distal femur fracture. Estimated blood loss was about 600 mL. In the perioperative area patient blood pressure was running low. Patient was transferred to the ICU. Patient did receive 2 units of blood yesterday. Today patient is intubated. FiO2 85% and a PEEP of 10. Drips include we will affect, propofol, Nimbex. Patient started IV heparin for underlying suspicion of pulmonary embolism. Accu-Cheks running high has put on insulin drip. Oral gastric tube. Patient's and 2 daughters at the bedside. Discussed at length. Patient renal function also worsened. Hyperkalemia. Given bicarbonate. Being followed by [employer] mechanic, nephrology. Another unit of blood pending. Hemoglobin this morning 6.7. Patient has increased right-sided heart pressures suspicious for therefore PE/fat embolism. March 30: ICU. Spiked a fever. Advair 250/50 5 and a PEEP of 8. On the ventilator. Sinus rhythm. Drips include Nimbex, propofol, IV heparin, IV insulin, IV norepinephrine. Right leg in a brace. IV ceftriaxone. March 31: ICU. On the ventilator. FiO2 45 PEEP of 5. 2 feeding at 30 mL an hour. Telemetry: Sinus rhythm. Drips include insulin, propofol, epinephrine, IV heparin. IV insulin. Cultures have been negative up to now. Remains in empirically on IV ceftriaxone. April 01: ICU. Patient underwent bronchoscopy by Dr. Babcock. 4 atelectasis on the chest x-ray. No rashes thick secretions removed from the left lower lobe. Likely mucous plugging. Currently on the ventilator with FiO2 100 a PEEP of 8. Sinus rhythm on the telemetry. Drips include IV levo fed, propofol, IV heparin, insulin. Having white secretions. IV ceftriaxone. Discussed with the patient's out of the bedside. Patient still remains critical. April 02: ICU. Overnight, last admin the nurse give medications through the OG tube medications came out through the mouth. 2 feeding was cutback. Started on a smaller rate. Remains on the ventilator. [place] to 65 and a PEEP of 12. Levo fed was discontinued yesterday afternoon. On propofol. IV heparin, IV insulin. April 03: ICU. Remains on the ventilator. FiO2 65 PEEP of 12. Patient is off propofol. Still remained lethargic. Neurology consulted. Also includes IV heparin drip. Family including father and 2 daughters at the bedside. G-tube feeding at goal. Discuss CODE STATUS with the family. Nurse called back later that they have decided to make the patient no code April 04: ICU. On the ventilator. FiO2 50 to PEEP of 12. Having a lot of thick and clear secretions through the ET tube. Remains lethargic. Code EEG done today. On cleviprex, propofol, IV heparin changed over to Lovenox subcu twice a day. and the daughter the bedside. April 05: ICU. Ventilator. FiO2 40 PEEP of 12. Drips include cleviprex and propofol. Secretions through the G-tube. Getting 2 feeding. Discussed with the 2 daughters at the bedside. HEENT negative for seizure activity. Shows encephalopathy. Patient positive for heparin-induced platelet antibody. Consult hematology. April 06: ICU. Ventilator. FiO2 40 and a PEEP of 12. Sliding some secretions. 2 feeding at 29 mL an hour. Getting IV Lasix 40 mg twice a day. On propofol 35. Had a small BM yesterday. Patient is started on argatroban yesterday. Taken off cleviprex April 07: ICU. Ventilator. FiO2 40 and a PEEP of 10. Tube feeding continues. On IV argatroban. IV Zosyn. IV propofol. Dr. Levine spoke to the family about possible tracheostomy. and daughter the bedside. Care was discussed. I trying to make a decision. Active Medications Hydrocodone Bitart/Acetaminophen (Hydrocodone/Apap 5-325mg 1 Each Tab) 1 each PO Q4HR PRN PRN Reason: Moderate Pain (Scale 4 to 6) Last Admin: 04/07/23 01:41 Dose: 1 each Albuterol/Ipratropium (Ipratropium-Albuterol 3 Ml Neb) 3 ml INHALATION RT-Q4H [facility] Last Admin: 04/07/23 15:31 Dose: 3 ml Amlodipine Besylate (Amlodipine 10 Mg Tab) 10 mg PO DAILY [facility] Last Admin: 04/07/23 10:16 Dose: 10 mg Chlorhexidine Gluconate (Chlorhexidine Gluconate 15 Ml Cup) 15 ml MUCOUS MEM BID [facility] Last Admin: 04/07/23 10:13 Dose: 15 ml Cinacalcet (Cinacalcet 30 Mg Tab) 30 mg PO MoTh@0900 [facility] Last Admin: 04/07/23 10:19 Dose: 30 mg Clonidine HCl (Clonidine 0.2 Mg/24hr Patch) 1 patch TRANSDERM Q7D [facility] Last Admin: 04/07/23 10:13 Dose: 1 patch Dextrose/Water (Dextrose 50% Syringe 50 Ml) 25 ml IVP PER PROTOCOL PRN; Protocol PRN Reason: Hypoglycemia Dextrose/Water (Dextrose 50% Syringe 50 Ml) 50 ml IVP PER PROTOCOL PRN; Protocol PRN Reason: Hypoglycemia Ferrous Sulfate (Ferrous Sulfate 325 Mg Tab) 325 mg PO DAILY [facility] Last Admin: 04/07/23 10:16 Dose: 325 mg Fluconazole (Fluconazole Oral Susp 1,400 Mg/35 Ml Bottle) 100 mg PO DAILY [facility]; Protocol Last Admin: 04/07/23 11:02 Dose: 100 mg Fluoxetine HCl (Fluoxetine Hcl 20 Mg Cap) 40 mg PO DAILY [facility] Last Admin: 04/07/23 10:16 Dose: 40 mg Furosemide (Furosemide 10 Mg/Ml 4 Ml Vial) 40 mg IV Q12HR [facility] Last Admin: 04/07/23 10:16 Dose: 40 mg Propofol 1,000 mg/ IV Solution 100 mls @ 10.41 mls/hr IV .Q9H37M [facility]; Protocol Last Admin: 04/07/23 12:27 Dose: 30 mcg/kg/min, 20.82 mls/hr Sodium Chloride (Saline 0.9%) 1,000 mls @ 20 mls/hr IV .Q24H [facility] Last Admin: 04/07/23 06:09 Dose: 20 mls/hr Piperacillin Sod/Tazobactam (Sod 3.375 gm/ Sodium Chloride) 100 mls @ 25 mls/hr IVPB Q8HR [facility]; Protocol Last Admin: 04/07/23 15:03 Dose: 25 mls/hr Argatroban 50 mg/ Sodium (Chloride) 50 mls @ 7.482 mls/hr IV .Q6H41M [facility]; Protocol Last Admin: 04/07/23 15:02 Dose: 2.5 mcg/kg/min, 18.705 mls/hr Insulin Aspart (Insulin Aspart (Novolog) 100 Unit/Ml Vial) 0 unit SQ Q6H [facility]; Protocol Last Admin: 04/07/23 12:20 Dose: Not Given Insulin Detemir (Insulin Detemir (Levemir) 100 Unit/Ml Syr) 52 unit SQ HS@1900 [facility] Last Admin: 04/06/23 18:43 Dose: 52 unit Lorazepam (Lorazepam 0.5 Mg Tab) 0.5 mg PO Q6HR PRN PRN Reason: Anxiety Last Admin: 04/07/23 07:13 Dose: 0.5 mg Metoprolol Tartrate (Metoprolol Tartrate 25 Mg Tab) 25 mg PO BID [facility] Last Admin: 04/07/23 10:14 Dose: 25 mg Miscellaneous Information (Potassium Replacement Protocol 1 Each Misc) 1 each MISCELLANE DAILY PRN; Protocol PRN Reason: Per Protocol Miscellaneous Information (Magnesium Replacement Protocol 1 Each Misc) 1 each MISCELLANE DAILY PRN; Protocol PRN Reason: Per Protocol Naloxone HCl (Naloxone 0.4 Mg/Ml 1 Ml Vial) 0.2 mg IV Q2M PRN PRN Reason: Opioid Reversal Nystatin (Nystatin 100,000 Unit/Ml Susp 500,000 Unit/5 Ml Cup) 500,000 unit PO QID [facility]; Protocol Last Admin: 04/07/23 12:27 Dose: 500,000 unit Olanzapine (Olanzapine 5 Mg Tab) 5 mg PO HS [facility] Last Admin: 04/06/23 20:20 Dose: 5 mg Ondansetron HCl (Ondansetron 4 Mg/2 Ml Vial) 4 mg IVP Q8HR PRN PRN Reason: Nausea And Vomiting Pantoprazole Sodium (Pantoprazole 40 Mg/10 Ml Vial) 40 mg IV DAILY [facility] Last Admin: 04/07/23 10:22 Dose: 40 mg Senna (Sennosides 8.6 Mg Tab) 8.6 mg PO BID [facility] Last Admin: 04/07/23 10:22 Dose: 8.6 mg Senna/Docusate Sodium (Sennosides-Docusate Sodium 1 Each Tab) 2 each PO HS [facility] Last Admin: 04/06/23 20:20 Dose: 2 each Past medical history to include: Diabetes mellitus type 2, hyperlipidemia, hypertension, osteoarthritis, peripheral neuropathy, bilateral breast cancer with bilateral mastectomies, ulcerative colitis-colonoscopy has shown normal colon and biopsy was negative., diverticulosis, chronic low back pain and arthritis, anxiety depression. COVID- 19 Social history: . Smoked for 41 years stopped in 2005. No alcohol Physical examination: VITAL SIGNS: 99.5, 72, 32, 160/63, 94% on the vent GENERAL: , intubated. OG tube EYES: Pupils equal. Conjunctiva normal. HEENT: External appearance of nose and ears normal, oral cavity OG tube NECK: JVD unable to assess; masses not palpable. HEART: First and second heart sounds are normal; edema present LUNGS: Respiratory rate increased, decreased breath sounds ABDOMEN: Soft, nontender, liver spleen not palpable, no masses palpable. PSYCH: Unable to assess MUSCULAR skeletal: Evidence of OA especially in the hands . Right lower extremity in a brace INVESTIGATIONS, reviewed in the clinical context: April 07: WBC 9.6 hemoglobin 8 platelets 114 potassium 3.7 BUN 53 creatinine 1.06 Heparin-induced platelet antibody: 2.1 April 05: WBC 11.2 hemoglobin 7.9 platelets 64 potassium 4.1 BUN 49 creatinine 0.95 April 04: White count 10.5 hemoglobin 7.7 platelets 80 potassium 4.9 creatinine 0.99 March 30: White count 15.4 hemoglobin 8.8 platelets 298 potassium 3.6 BUN 53 creatinine 1.99 AST 1842 ALT 208 2-D echocardiogram: Moderate increased LVH. EF 50-55%. Severe right ventricle dilatation generalized right ventricle hypokinesis. Severe pulmonary hypertension. Moderate to severe tricuspid regurgitation. Ultrasound venous Doppler lower extremity: Limited views. No obvious DVT. Ultrasound kidney: Right kidney: Mild renal cortical thinning. Left kidney obscured. March 29: White count 20.6 hemoglobin 6.7 platelets 300 ABG: PH 7.13 pCO2 62. Potassium 5.1 BUN 40 creatinine 1.91 blood glucose 372 UA: Noted March 28: White count 9.1 hemoglobin 9.5 potassium 4.4 BUN 36 creatinine 1.37 White count 12.2 hemoglobin 11.5 platelets 510 sodium 140 potassium 4 BUN 34 creatinine 1.9 EKG tracing personally reviewed by me-normal sinus rhythm. Chest x-ray film personally reviewed by me-: Portable. No obvious infiltrate Knee x-ray/femur CT: Comminuted fracture distal metadiaphyseal femur adjacent to a knee processes. Displacement of the distal fracture fragment from the proximal fracture Assessment and plan: -Fall leading to acute Comminuted fracture distal metadiaphyseal femur adjacent to a knee processes. Displacement of the distal fracture fragment from the proximal fracture. March 28:right revision total knee replacement the distal femoral replacement age for periprosthetic distal femur fracture. By Dr. Stack. EBL 600 mL -Metabolic/anoxic encephalopathy. Not improving Neurology consulted. EEG negative for seizure -Mucous plugging with left lower lobe atelectasis. Status post bronchoscopy and removal of sticks tenacious secretions. 04/01/2023 -Acute severe blood loss anemia from surgery Patient received 3 units of blood -Hyperkalemia from acute kidney injury: Better -Thrombocytopenia. Positive heparin-induced antibody IV Argotroban -Acute cor pulmonale with underlying suspicious for fat embolism/pulmonary embolism with acute right ventricle dilatation and moderate to severe TR. -Acute hypotensive shock from blood loss anemia.: Better Receive 3 units of blood. IV levo fed discontinued -Acute kidney injury likely cardiorenal syndrome/ATN. From hypotension and anemia.: Better Follow with nephrology. Admission creatinine was 1.29. Peaked at 2.43. 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 / Amaryl. Increase Levemir to 52 units at night -Hyperlipidemia Lipitor, TriCor -Anxiety not otherwise specified Klonopin 0.5 mg 3 times a day -Depression Zyprexa 5 mg daily at bedtime, Prozac 40 mg a day -Hyperuricemia Allopurinol -Essential hypertension, -Acute hepatitis likely ischemic, improvement -Primary osteoarthritis Pain medications when necessary -Chronic kidney disease stage III from diabetic nephropathy and hypertensive nephrosclerosis Follow renal function -DO NOT RESUSCITATE Prognosis guarded. Discussed with family the bedside.
[2023-04-07 17:59] LABS: Glucose,Whole Blood 157 mg/dL (70-110)
[2023-04-07] MEDS: INSULIN DETEMIR (LEVEMIR) 100 UNIT/ML SYR SQ SCH (18:05)
[2023-04-07] MEDS: SENNOSIDES-DOCUSATE SODIUM 1 EACH TAB PO SCH (20:00)
[2023-04-07] MEDS: OLANZapine 5 MG TAB PO SCH (20:08)
[2023-04-07 23:27] LABS: Glucose,Whole Blood 141 mg/dL (70-110)
[2023-04-08] MEDS: ARGATROBAN 50 MG in SODIUM CHLORIDE 0.9% 50 ML IV SCH (01:23)
[2023-04-08] MEDS: HYDROcodone/APAP 5-325MG 1 EACH TAB PO PRN (02:52)
[2023-04-08] MEDS: IPRATROPIUM-ALBUTEROL 3 ML NEB INHALATION SCH ×5 (03:27→20:52)
[2023-04-08] MEDS ORDERED: ARGATROBAN 50 MG in SODIUM CHLORIDE 0.9% 50 ML IV SCH (04:00)
[2023-04-08] MEDS: SODIUM CHLORIDE 0.9% 1,000 ML IV SCH (05:09)
[2023-04-08 05:14] LABS: Glucose,Whole Blood 141 mg/dL (70-110)
[2023-04-08] MEDS: INSULIN ASPART (NovoLOG) 100 UNIT/ML VIAL SQ SCH ×4 (05:25→23:43)
[2023-04-08 05:38] LABS: Anisocytosis Slight; HGB 7.9 gm/dL (11.4-16.0); Hypochromasia Moderate; MCH 28.8 pg (25.0-35.0); MCHC 31.8 g/dL (31.0-37.0); MCV 90.8 fL (80.0-100.0); Mean Platelet Volume 9.7; Platelet Count 163 k/uL (150-450); RBC 2.75 m/uL (3.80-5.40); RDW 17.1 % (11.5-15.5)
[2023-04-08 05:51] LABS: ABG Base Excess 9.8 mmol/L; ABG HCO3 33 mmol/L (21-25); ABG Oxygen Saturation 97.3 % (94-97); ABG PCO2 39 mmHg (35-45); ABG PH 7.53 (7.35-7.45); ABG PO2 80 mmHg (83-108); ABG TCO2 34 mmol/L (19-24)
[2023-04-08 05:53] LABS: Allen Test Performed? no
[2023-04-08 05:59] LABS: Band Neutrophils % 5 %; Metamyelocytes # (M) 0.24 k/uL (0); Metamyelocytes % 3 %; Neutrophils % (M) 57 %; Nucleated Red Blood Cells 1 /100 WBC (0-0); Total Cells Counted 200
[2023-04-08 06:00] LABS: Lymphocytes # (M) 1.76 k/uL (1.0-4.8); Monocytes # (M) 0.64 k/uL (0-1.0)
[2023-04-08] MEDS: LORazepam 0.5 MG TAB PO PRN (06:15)
[2023-04-08] MEDS: ARGATROBAN 250 MG in SODIUM CHLORIDE 0.9% 250 ML IV SCH ×2 (06:32→20:21)
[2023-04-08 06:39] LABS: Calcium 10.1 mg/dL (8.4-10.2); Magnesium 1.8 mg/dL (1.6-2.3); Potassium 3.4 mmol/L (3.5-5.1)
[2023-04-08] MEDS ORDERED: MAGNESIUM SULFATE-D5W PMX 1 GM in DEXTROSE/WATER 1 100ML.BAG IVPB ONE (08:00)
--- NOTE | 2023-04-08 08:11 | XR ---
EXAMINATION TYPE: XR chest 1V portable DATE OF EXAM: 04/08/2023 CLINICAL HISTORY: Difficulty breathing progress study. TECHNIQUE: Single AP portable semiupright view of the chest is obtained. COMPARISON: Chest x-ray from one day earlier and older studies. FINDINGS: Stable endotracheal and orogastric tubes. Stable left-sided subclavian central venous cath eter. Persistent left greater than right bibasilar opacities. Upper lungs are clear without pneumothorax. C ardiac silhouette size is stable and upper limits of normal. Underlying scoliosis is present. IMPRESSION: Left basilar consolidation and small left pleural effusion slightly worsened from one day earlier. Stable Patchy right basilar atelectasis and/or infiltrate also noted.
[2023-04-08] MEDS: NYSTATIN 100,000 UNIT/ML SUSP 500,000 UNIT/5 ML CUP PO SCH ×4 (08:22→22:28)
[2023-04-08] MEDS: PANTOPRAZOLE 40 MG/10 ML VIAL IV SCH (08:23)
[2023-04-08] MEDS: CHLORHEXIDINE GLUCONATE 15 ML CUP MUCOUS MEM SCH ×2 (08:23→21:08)
[2023-04-08] MEDS: PIPERACILLIN-TAZOBACTAM 3.375 GM in SODIUM CHLORIDE 0.9% 100 ML IVPB SCH ×3 (08:23→23:40)
[2023-04-08] MEDS: amLODIPine 10 MG TAB PO SCH (08:24)
[2023-04-08] MEDS: POTASSIUM BICARBONATE/CIT AC 20 MEQ TABLET.EFF NG-TUBE SCH ×2 (08:24→10:56)
[2023-04-08] MEDS: FERROUS SULFATE 325 MG TAB PO SCH (08:24)
[2023-04-08] MEDS: SENNOSIDES 8.6 MG TAB PO SCH ×2 (08:24→21:08)
[2023-04-08] MEDS: FLUoxetine HCL 20 MG CAP PO SCH (08:24)
[2023-04-08] MEDS: METOPROLOL TARTRATE 25 MG TAB PO SCH ×2 (08:24→21:08)
[2023-04-08] MEDS: FUROSEMIDE 10 MG/ML 4 ML VIAL IV SCH ×2 (08:24→08:57)
[2023-04-08] MEDS: FLUCONAZOLE ORAL SUSP 1,400 MG/35 ML BOTTLE PO SCH (08:56)
--- NOTE | 2023-04-08 10:46 | P.PN ---
Subjective Progress Note Date: 04/08/23 Principal diagnosis: Respiratory failure. Patient was reevaluated today on 04/01/2023, remains in the ICU, intubated and mechanically ventilated. She is now on assist control rate of 32 tidal volume of 450 FiO2 45% and PEEP of 5 ABG showed a pO2 of 65 pCO2 43 pH of 7.34 hence Fi O2 was increased to 50%. Chest x-ray showed atelectasis of the left lower lobe as the patient underwent bronchoscopy today, and suction some tenacious secretions in the left lower lobe bronchus. No evidence of any other significant findings. Fluid obtained was sent for diagnostic studies. Patient remains on propofol at 20 mcg/kg/m she is also on heparin drip for presumptive pulmonary embolism she is receiving insulin at 5.3 units per hour norepinephrine at low-dose, however this was discontinued once the patient woke up and evaluated off propofol. Patient remains on Rocephin empirically, cultures have been negative so far. Awaiting cultures from the BAL of the left lower lobe today. Obviously the patient is not quite ready for weaning off propofol she was noted to be tachypneic, tachycardic, and her blood pressure was as high as 200 systolic. Hence no further weaning to be done today. And her ventilator settings will be adjusted accordingly after bronchoscopy and BAL. Labs today were reviewed she has a bit of leukocytosis with WBC count of 16.9 her PTT is therapeutic at 45.7 and electrolytes are normal BUN is down to 46 creatinine is down to 1.20 will continue to monitor heparin for now and monitor her renal status, may eventually recommend CT angiogram of the chest to confirm whether the patient had thromboembolic disease/pulmonary embolism. Pro calcitonin level was 1.91, nonetheless patient remains on Rocephin. So far urine cultures and blood cultures and sputum cultures have been negative Patient was reevaluated today on 04/02/2023, remains in the ICU, intubated and mechanically ventilated. Patient had a bit of a setback last night, apparently there was some issues with the nasogastric tube, and it was felt that the patient may have aspirated some of her feedings from the nasogastric tube, hence this tube was removed and another tube was placed, follow-up chest x-ray showed adequate placement of the orogastric tube. In the meantime the patient desat urated and she required increase in her FiO2. She went up as high as 75% PEEP was increased to 8 and today I recommended increasing the PEEP to 12 and FiO2 down to 65%. And advised titration. Chest x-ray continues to show left lower lobe consolidation. Right side seems to be relatively clear. ABG this morning showed a pO2 of 84 pCO2 51 pH of 7.39. Patient is on propofol at 50 mcg/kg/m she is also on insulin at 4.25 units per hour vital HPI 29 mL/h she is off norepinephrine. Considering the aspiration situation I recommended that we change antibiotics to Zosyn cultures from the BAL of the left lower lobe are pending. Her vent settings changed to assist control rate of 32 tidal volume 450 FiO2 65% and PEEP of 12. WBC count is 10.6 hemoglobin is 7.2 PTT is 35.6, electrolytes are normal BUN is 53 creatinine 1.[address] angiogram of the chest in the next 24-48 hours in the meantime the patient seems to be tolerating heparin well Reevaluated today on 04/03/2023, patient remains in the ICU, intubated and mechanically ventilated. Her assist-control rate is 3 to tidal volume is 450 FiO2 60% and I cut down today to 50% PEEP is at 12. Patient remains on propofol at 50 mcg/kg/m remains on heparin drip, she is also on vital HPI 29 mL per hour. Antibiotics aguirre remains on Zosyn, cultures have been negative along. Even though washing from the BAL of the left lower lobe remains nondiagnostic. ABG showed a pO2 of 108 pCO2 42 pH of 7.45 hence FiO2 was cut down from 60% to 50%. Patient has been off sedation, she does not seem to be appropriate, she opens her eyes, but does not follow any instructions, she seems to be confused, and encephalopathic. Hence I initiated a neurological consultation, I believe the patient may have sustained fat embolism to explain her mental status. Would like to have a CT of the brain and CT of the chest, however the patient cannot lay flat, and she desaturates significantly upon laying flat, hence we'll hold on both for now. Her urine output is excellent and she was given more Lasix a day. Her pain seems to be under control and her blood pressure seems to respond well to Dilaudid every 2 hours as needed. Considering her ABG is marginal and considering that the patient is requiring relatively high PEEP I am not yet ready to extubate the patient also concerned about her mental status. WBC count is 10.9 hemoglobin is 7.4. PTT is 53.6. BUN is 56 creatinine is 1.07. Considering CT angiogram of the chest but because of her inability to lay flat and she desaturates easily him holding on the CT angiogram of the chest for now. Progress note dated 04/04/2023. 72-year-old female admitted back on March 26. She had a fall and fractured her right femur. She went to the operating room on March 28, and was intubated on that day. She was thought to possibly have pulmonary embolism, or fat embolism syndrome. Because of her instability, she's not been able to go for a CT angiogram. Currently, she remains on the ventilator, at volume assist control, rate 32, , tidal volume 450, FiO2 50%, and PEEP of 12. Blood gases show pO2 of 91, pCO2 44, and pH is 7.44. She remains on propofol at 75 mcg/kg/m, IV heparin, 0.9 at KVO, and vital, at 23 mL an hour, which is goal. The nurse has a number of issues today and redressed some all. For her blood pressure elevation, we start her on Cleveprex, to be titrated slowly systolic blood pressures less than 160 and the mean is less than 100. We had backed the patien t's Toprol-XL. In addition, because of fluid retention, we'll give the patient Lasix 60 mg IV push. We will dose daily based on her I's and O's. We also will discontinue heparin, and started on Lovenox 120 mg subcu every 12 hours. This is because her platelet count has declined to 80,000. In addition, we will order that heparin-induced thrombocytopenia antibodies. White count 10.5, hemoglobin 7.7, hematocrit 23.8, and platelet count 80,000. Sodium 142, potassium 4.9, chlorides 108, CO2 28, BUN 54, creatinine 0.99. Microbiologic sampling has been negative. Chest x-ray shows changes of COPD, with a small left-sided pleural effusion, and retrocardiac atelectasis or consolidation. Progress note dated 04/05/2023. 72-year-old female admitted back on March 26. She had a fall and a fractured right femur. She went to the operating room on March 28, and was intubated on that day. She was thought to have possibly a pulmonary embolism, or fat embolism syndrome. Because of instability, the patient has not been able to go down for a CT angiogram. She did have Dopplers of the lower extremity that were negative. She remains on mechanical ventilator. She is on the volume assist control, rate 32, tidal volume 450, FiO2 50%, and a PEEP of 12. Arterial blood gases show pO2 of 68, pCO2 45, and a pH is 7.45. The patient remains on Cleveprex at 4 mg an hour, propofol at 50 mcg/kg/m, saline at 10 mL an hour, and vital, at 29 mL an hour, which is goal. White count 11.2, hemoglobin 7.9, hematocrit 24.9, and platelet count 64,000. Sodium 139, potassium 4.1, chlorides 104, CO2 29, BUN 49, and creatinine 0.95. Glucose 168. Microbiologic data is negative. Chest x-rays consistent with mild fluid overload. There may be some basilar infiltrates or atelectasis. Progress note dated 04/06/2023. 72-year-old female admitted back on March 26. Should a fall with a fractured right femur. She went to the operating room 2 days later on the , to have the fracture repaired. She was placed on the ventilator at that time, and has been on the ventilator since. She was thought to possibly have either fat embolism syndrome, or a pulmonary embolism. She's been too unstable, to take down for a computed tomography scan of the chest, and now, her renal function is such that the dye, with injured her kidneys even further. Also, yesterday, because of dropping platelet counts, we ordered the heparin-induced thrombocytopenia panel, and it was positive, so I started the patient on A rgatroban, at 2.5 mcg/kg/m. The platelet counts actually a bit higher today. She remains on the ventilator, volume assist control, rate 32, out of I'm 450, FiO2 40%, and PEEP of 12. Blood gases show pO2 of 70, pCO2 43, and a pH is 7.49. His blood gases consistent with a very mild metabolic alkalosis. In addition to Argatroban, the patient is on propofol at 40 mcg/kg/m, and Cleveprex at 2 mg an hour, which may be discontinued. She's getting tube feedings with vital at 29 mL an hour, which is goal. Today, we will lessen her sedation, for a daily interruption of sedation. She is likely not ready for a spontaneous breathing trial. White count 12.1, hemoglobin 8.2, hematocrit 25.6, and p latelet count 78,000. Yesterday was 64,000. The patient's sodium is 141, potassium 4.1, chlorides 101, CO2 32, BUN 50, creatinine 1.11. Microbiologic studies are all negative thus far. Chest x-ray this morning shows atelectasis or infiltrate at the right lung base, and some consolidation or fluid at the left lung base. Progress note dated 04/07/2023. 72-year-old female admitted back on March 26, status post fall, with a fractured right femur. The patient went to the operating room for repair, 2 days later on the , and subsequently has been on mechanical ventilator, and has not been able to be weaned off. The patient has had a number of issues including elevated blood pressures, requiring multiple blood pressure medications including IV Cleveprex, the potential for the possibility of pulmonary embolism versus fat embolism syndrome, high oxygen and PEEP requirements, and more rec ently, the development of heparin-induced thrombocytopenia. Ventilator settings include assist control, rate 32, tidal volume 450, FiO2 40%, with 10. Blood gases show pO2 of 96, pCO2 38, and a pH is 7.53. The patient has a metabolic alkalosis, secondary to volume contraction, and mild hypokalemia. The patient's getting saline at 20 mL an hour, propofol at 20 mcg/kg/m, argatroban at 2.5 mcg/kg/m, and vital high protein at goal, which is 63 mL an hour. White count 9.6, hemoglobin 8, hematocrit 25.4, and platelet count is now up to 114,000. PTT is 68.9. Sodium 142, potassium 3.7, chlorides 104, CO2 33, BUN 53, and creatinine 1.06. The patient's chest x-ray shows improving pulmonary vascular congestion. Progress note dated 04/08/2023. 72-year-old female again seen in room 264. The patient remains on mechanical ventilation. We will attempt another daily interruption of sedation. Yesterday, with a DIS, she did very poorly. Her ventilator settings include the volume assist control, rate 32, tidal volume 450, FiO2 40% and PEEP of 10. Blood gases show pO2 of 80, pCO2 39, and a pH is 7.53. The patient has a mild/moderate metabolic alkalosis secondary to volume contraction, and hypokalemia. The patient's on propofol at 35 mcg/kg/m, 0.90 KVO, vital high protein at goal, which is 29 mL an hour, and argatroban, at 2.5 mcg/kg/m. White count 8.0, hemoglobin 7.9, hematocrit 25, and platelet count 163,000. PTT is 68.6. Sodium 144, potassium 3.4, chlorides 106, CO2 32, BUN 54, and creatinine 1.07. Microbiologic studies are negative. Chest x-ray shows evidence of left basilar consolidation, small left pleural effusion, as well as some patchy right-sided atelectasis or infiltrate. This patient has been intubated since March 28. Objective - Vital Signs Vital signs: Vital Signs Temp 98.8 F 04/08/23 08:00 Pulse 74 04/08/23 10:00 Resp 32 H 04/08/23 10:00 BP 160/63 04/07/23 12:00 Pulse Ox 95 04/08/23 10:00 FiO2 40 04/08/23 08:24 Intake & Output 04/07/23 04/08/23 04/08/23 18:59 06:59 18:59 Intake Total 8541.576 7826.007 589.470 Output Total 2270 1645 610 Balance -929.169 -187.993 -20.530 Weight 127.4 kg Intake: IV 360 320 260 Magnesium Sulfate-D5w Pmx 100 1 gm In Dextrose/Water 1 100ml.bag @ 100 mls/hr IVPB ONCE ONE Rx#: [id number] Piperacillin-Tazobactam 3 100 100 100 .375 gm In Sodium Chloride 0.9% 100 ml @ 25 mls/hr IVPB Q8HR [facility] Rx# :[id number] Sodium Chloride 0.9% 1, 260 220 60 000 ml @ 20 mls/hr IV . Q24H [facility] Rx#:[id number] Intake, IV Titration 431.831 418.007 113.470 Amount Argatroban 50 mg In 142.086 146.763 Sodium Chloride 0.9% 50 ml @ 1 MCG/KG/MIN 7.482 mls/hr IV .[id number] [facility] Rx# :[id number] propofoL 1,000 mg In 289.745 271.244 113.470 Empty Bag 1 bag @ 15 MCG/ KG/MIN 10.41 mls/hr IV . [id number] [facility] Rx#:[id number] Tube Feeding 319 319 116 Other 230 400 100 Output: Urine 2270 1645 610 Other: Voiding Method Indwelling Catheter Indwelling Catheter Indwelling Catheter # Bowel Movements 1 ABP, PAP, CO, CI - Last Documented Arterial Blood Pressure 158/52 - Exam No acute distress, sedated, with an orally placed endotracheal tube and NG tube. HEENT examination is grossly unremarkable. Neck supple. Full range of motion. No adenopathy thyromegaly or neck vein distention. Cardiovascular examination reveals regular rhythm rate. S1-S2 normal. No S3 or S4. No discernible murmur noted. Heart sounds are distant. Heart rate 74 bpm. Lungs reveal scattered bilateral rhonchi. No wheezes or crackles. Breath sounds equal. Saturation is 95 % Abdomen obese, with bowel sounds. Extremities are intact. No cyanosis or clubbing. There is diffuse edema and anasarca. Skin is without rash or lesion. Neurologic examination reveals a sedated patient, they can open her eyes. - Labs CBC & Chem 7: 04/08/23 05:18 04/08/23 05:18 Labs: Abnormal Lab Results - Last 24 Hours (Table) 04/07/23 04/07/23 04/07/23 Range/Units 12:19 17:57 23:26 RBC (3.80-5.40) m/uL Hgb (11.4-16.0) gm/dL Hct (34.0-46.0) % RDW (11.5-15.5) % Metamyelocytes # (Man) (0) k/uL Nucleated RBCs (0-0) /100 WBC APTT (22.0-30.0) sec ABG pH (7.35-7.45) ABG pO2 (83-108) mmHg ABG HCO3 (21-25) mmol/L ABG Total CO2 (19-24) mmol/L ABG O2 Saturation (94-97) % Potassium (3.5-5.1) mmol/L Carbon Dioxide (22-30) mmol/L BUN (7-17) mg/dL Creatinine (0.52-1.04) mg/dL Glucose (74-99) mg/dL POC Glucose (mg/dL) 133 H 157 H 141 H (70-110) mg/dL 04/08/23 04/08/23 04/08/23 Range/Units 05:13 05:18 05:18 RBC 2.75 L (3.80-5.40) m/uL Hgb 7.9 L (11.4-16.0) gm/dL Hct 25.0 L (34.0-46.0) % RDW 17.1 H (11.5-15.5) % Metamyelocytes # (Man) 0.24 H (0) k/uL Nucleated RBCs 1 H (0-0) /100 WBC APTT 68.6 H (22.0-30.0) sec ABG pH (7.35-7.45) ABG pO2 (83-108) mmHg ABG HCO3 (21-25) mmol/L ABG Total CO2 (19-24) mmol/L ABG O2 Saturation (94-97) % Potassium (3.5-5.1) mmol/L Carbon Dioxide (22-30) mmol/L BUN (7-17) mg/dL Creatinine (0.52-1.04) mg/dL Glucose (74-99) mg/dL POC Glucose (mg/dL) 141 H (70-110) mg/dL 04/08/23 04/08/23 Range/Units 05:18 05:48 RBC (3.80-5.40) m/uL Hgb (11.4-16.0) gm/dL Hct (34.0-46.0) % RDW (11.5-15.5) % Metamyelocytes # (Man) (0) k/uL Nucleated RBCs (0-0) /100 WBC APTT (22.0-30.0) sec ABG pH 7.53 H (7.35-7.45) ABG pO2 80 L (83-108) mmHg ABG HCO3 33 H (21-25) mmol/L ABG Total CO2 34 H (19-24) mmol/L ABG O2 Saturation 97.3 H (94-97) % Potassium 3.4 L (3.5-5.1) mmol/L Carbon Dioxide 32 H (22-30) mmol/L BUN 54 H (7-17) mg/dL Creatinine 1.07 H (0.52-1.04) mg/dL Glucose 134 H (74-99) mg/dL POC Glucose (mg/dL) (70-110) mg/dL Assessment and Plan Assessment: Acute hypoxemic and hypercapnic respiratory failure, possibly secondary to pulmonary embolism, or fat embolism syndrome. Status post intubation and mechanical ventilation, beginning on March 28. Postop day #11, status post repair of comminuted right femur fracture. 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 Hypotension, which may relate to PE, or FES, resolved. Acute kidney injury. Acute blood loss anemia. Lactic acidemia secondary to hypotension and hypoperfusion. Shock liver. Previous right total knee replacement. Morbid obesity. History of obstructive sleep apnea syndrome. Previous history of tobacco use. Left lower lobe atelectasis versus pneumonia. Status post bronchoscopy and BAL, postop day #7. Mental status changes, likely related to metabolic encephalopathy. Plan: Plan dated 04/04/2023. The patient is started back on Toprol, which she was taking as an outpatient, and we also added IV Cleveprex, is a dihydropyridine calcium channel alisha, for better blood pressure support. I put targets of systolics less than 160, and mean arterial pressures of less than 100 to the nurse. The patient will get Lasix 60 mg IV push once. We'll DC the IV heparin in favor of Lovenox 120 mg subcu every 12 hours. HIT antibodies are ordered. Labs, x-rays, medications are all reviewed. We will continue to follow make recommendations along the way. Prognosis is guarded. Plan dated 04/05/2023. The patient's blood pressure is under better control. The patient continues on Cleveprex, and propofol. I attempted to call the , Khoa, but he did not pharmacy picking tech the phone. The nurse will restart the family. Labs, x-rays, medications are all reviewed. The patient was intubated on March 28. Because of relatively higher FiO2's, and PEEP levels, the patient is not a candidate for extubation. By the end of the week, the patient is to continue as a full code, we'll talk to the family about tracheostomy and PEG tube placement. Prognosis is certainly guarded. We will continue to follow the platelet count. She was switched from heparin to low molecular weight heparin yesterday. Plan dated 04/06/2023. Currently, the patient remains on propofol, and a small dose of Cleveprex. She's also getting tube feedings at goal. The heparin-induced thrombocytopenia panel came back positive, and the patient was started on Argatroban. The nurse will lessen the patient's sedation today, to evaluate her mental status. In addition, I had a long discussion with the daughter, Jyoti, and spoke to her about the various issues including the renal dysfunction, the pluses and minuses of doing a CT angiogram, and the problem with the platelets. In addition, we spoke about the possibility of tracheostomy and PEG tube placement. She mentioned that the patient would not once that. Because of last day and a half is been a bit better, will hold off for now. Labs, x-rays, and medications are reviewed. Prognosis is guarded. We will continue to follow make recommendations along the way. Plan dated 04/07/2023. The patient appears to be doing a bit better from the standpoint of her platelet count. I forcefully, we did a daily interruption of sedation today, the patient became very unstable, with lower saturations, and acute elevations in blood pressure. The patient was re-sedated. I will notify the family of this, we speak tomorrow. We will try to get the patient's potassium 4.5 mEq per liter. This will help the patient's metabolic alkalosis. Also, for additional blood pressure support, we added a clonidine patch, TTS #2. Labs, x-rays, medications are reviewed. Prognosis is guarded. 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 Plan dated 04/08/2023. The patient appears to be doing about the same. She remains on mechanical ventilator. She continues on propofol, and argatroban yesterday, the patient miserably failed her daily interruption of sedation. We'll attempt another daily interruption of sedation today. I will which out to her daughter Jyoti, for guidance. She remains on mechanical ventilator. Her blood gases show a primary metabolic alkalosis, secondary to volume contraction and hypokalemia. Labs, x- rays, and all medications are reviewed. Prognosis is certainly guarded. The patient may be a candidate for comfort care, if she does not do well today on her daily interruption of sedation. The patient's daughter stated that she would never want a tracheostomy tube and/or PEG tube placement. Time with Patient: Greater than 30
--- NOTE | 2023-04-08 11:18 | P.PN ---
Subjective Progress Note Date: 04/08/23 Principal diagnosis: HIT antibody positive At today's visit patient is more alert. She is opening eyes to verbal commands and is able to nod her head to questions. Continues on argatroban. JOEL pending. DIC work-up is negative. Platelets are improving, 163,000 today. No reported episodes of bleeding. Objective - Vital Signs Vital signs: Vital Signs Temp 98.8 F 04/08/23 08:00 Pulse 74 04/08/23 10:00 Resp 32 H 04/08/23 10:00 BP 160/63 04/07/23 12:00 Pulse Ox 95 04/08/23 10:00 FiO2 40 04/08/23 08:24 Intake & Output 04/07/23 04/08/23 04/08/23 18:59 06:59 18:59 Intake Total 1783.315 3227.007 589.470 Output Total 2270 1645 610 Balance -929.169 -187.993 -20.530 Weight 127.4 kg Intake: IV 360 320 260 Magnesium Sulfate-D5w Pmx 100 1 gm In Dextrose/Water 1 100ml.bag @ 100 mls/hr IVPB ONCE ONE Rx#: [id number] Piperacillin-Tazobactam 3 100 100 100 .375 gm In Sodium Chloride 0.9% 100 ml @ 25 mls/hr IVPB Q8HR COUNTS INCLUDE 234 BEDS AT THE [facility] Rx# :[id number] Sodium Chloride 0.9% 1, 260 220 60 000 ml @ 20 mls/hr IV . Q24H COUNTS INCLUDE 234 BEDS AT THE [facility] Rx#:[id number] Intake, IV Titration 431.831 418.007 113.470 Amount Argatroban 50 mg In 142.086 146.763 Sodium Chloride 0.9% 50 ml @ 1 MCG/KG/MIN 7.482 mls/hr IV .Q6H41M COUNTS INCLUDE 234 BEDS AT THE [facility] Rx# :[id number] propofoL 1,000 mg In 289.745 271.244 113.470 Empty Bag 1 bag @ 15 MCG/ KG/MIN 10.41 mls/hr IV . Q9H37M COUNTS INCLUDE 234 BEDS AT THE [facility] Rx#:[id number] Tube Feeding 319 319 116 Other 230 400 100 Output: Urine 2270 1645 610 Other: Voiding Method Indwelling Catheter Indwelling Catheter Indwelling Catheter # Bowel Movements 1 ABP, PAP, CO, CI - Last Documented Arterial Blood Pressure 158/52 - Constitutional General appearance: Present: no acute distress, obese - EENT Eyes: Present: anicteric sclerae, EOMI ENT: Present: hearing grossly normal - Respiratory Details: ventilated - Cardiovascular Details: skin warm and dry - Peripheral edema leg Peripheral Edema Comment(s): diffuse edema to bilateral upper and lower extremities Peripheral Edema: bilateral: 3+ - Integumentary Integumentary Comment(s): no ecchymosis or necrosis noted. Pedal pulses +2 bilaterally Integumentary: Absent: cyanotic, rash - Musculoskeletal Musculoskeletal: Present: generalized weakness - Labs CBC & Chem 7: 04/08/23 05:18 04/08/23 05:18 Labs: Abnormal Lab Results - Last 24 Hours (Table) 04/07/23 04/07/23 04/07/23 Range/Units 12:19 17:57 23:26 RBC (3.80-5.40) m/uL Hgb (11.4-16.0) gm/dL Hct (34.0-46.0) % RDW (11.5-15.5) % Metamyelocytes # (Man) (0) k/uL Nucleated RBCs (0-0) /100 WBC APTT (22.0-30.0) sec ABG pH (7.35-7.45) ABG pO2 (83-108) mmHg ABG HCO3 (21-25) mmol/L ABG Total CO2 (19-24) mmol/L ABG O2 Saturation (94-97) % Potassium (3.5-5.1) mmol/L Carbon Dioxide (22-30) mmol/L BUN (7-17) mg/dL Creatinine (0.52-1.04) mg/dL Glucose (74-99) mg/dL POC Glucose (mg/dL) 133 H 157 H 141 H (70-110) mg/dL 04/08/23 04/08/23 04/08/23 Range/Units 05:13 05:18 05:18 RBC 2.75 L (3.80-5.40) m/uL Hgb 7.9 L (11.4-16.0) gm/dL Hct 25.0 L (34.0-46.0) % RDW 17.1 H (11.5-15.5) % Metamyelocytes # (Man) 0.24 H (0) k/uL Nucleated RBCs 1 H (0-0) /100 WBC APTT 68.6 H (22.0-30.0) sec ABG pH (7.35-7.45) ABG pO2 (83-108) mmHg ABG HCO3 (21-25) mmol/L ABG Total CO2 (19-24) mmol/L ABG O2 Saturation (94-97) % Potassium (3.5-5.1) mmol/L Carbon Dioxide (22-30) mmol/L BUN (7-17) mg/dL Creatinine (0.52-1.04) mg/dL Glucose (74-99) mg/dL POC Glucose (mg/dL) 141 H (70-110) mg/dL 04/08/23 04/08/23 Range/Units 05:18 05:48 RBC (3.80-5.40) m/uL Hgb (11.4-16.0) gm/dL Hct (34.0-46.0) % RDW (11.5-15.5) % Metamyelocytes # (Man) (0) k/uL Nucleated RBCs (0-0) /100 WBC APTT (22.0-30.0) sec ABG pH 7.53 H (7.35-7.45) ABG pO2 80 L (83-108) mmHg ABG HCO3 33 H (21-25) mmol/L ABG Total CO2 34 H (19-24) mmol/L ABG O2 Saturation 97.3 H (94-97) % Potassium 3.4 L (3.5-5.1) mmol/L Carbon Dioxide 32 H (22-30) mmol/L BUN 54 H (7-17) mg/dL Creatinine 1.07 H (0.52-1.04) mg/dL Glucose 134 H (74-99) mg/dL POC Glucose (mg/dL) (70-110) mg/dL Assessment and Plan (1) HIT (heparin-induced thrombocytopenia) Current Visit: Yes Status: Acute Code(s): D75.829 - HEPARIN-INDUCED THROMBOCYTOPENIA, UNSPECIFIED SNOMED Code(s): 81758229 (2) Fracture of distal end of right femur Current Visit: Yes Status: Acute Code(s): S72.401A - UNSP FRACTURE OF LOWER END OF RIGHT FEMUR, INIT FOR CLOS FX SNOMED Code(s): 076033986 Plan: HIT: -HIT antibody positive, 2.1, with 89% probability of JOEL positivity. Patient was started heparin for suspected PE s/p surgery and platelets were noted to decrease 5 days after initiation. Platelets were in the 250,000-400,000 during admission prior to drop. Platelets improving, 163,000 today. No reported episodes of bleeding -Decrease in platelets 5-10 days after initiation of heparin, with platelets in the 50-80K range is consistent with HIT -Serotinin release assay pending. DIC workup negative. -Heparin has been discontinued and patient was started on argatroban. Due to concern for prothrombic state, patient should be kept on argatroban until platelets normalize. Once patients condition improves and is extubated will plan to transition to eliquis -CBC daily. Will closely monitor platelets
--- NOTE | 2023-04-08 11:19 | P.PN ---
Progress Note - Text Progress Note Date: 04/08/23 - Chief Complaint Right leg injury History of presenting complaint: very pleasant 72-year-old patient of Dr. Persaud. Chronic stable medical conditions include diabetes, hyperlipidemia, hypertension, primary osteoarthritis, peripheral neuropathy, bilateral breast cancer with bilateral mastectomy, IBS, diverticulosis, chronic low back arthritis. Anxiety depression. Diagnosis of ulcerative colitis for about 15 years. On Asacol 800 mg 3 times a day. In November 2020 did undergo coloscopy by Dr. Moreno. Normal- appearing colon. Patient does follow with Dr. Angi Stallings. On an average has about 10 bowel movements a day. Present for years. Patient today was at the [facility]. Troponin went and fell down. Computed tomography scan showing a comminuted fracture distal metaphyseal femur adjacent to the knee processes. Some external rotation. Right lower extremity - brace. Patient's able to get about the house.. No chest pain or palpitation. March 27: Reclining bed. Pain control. Oral intake fair. Pending surgery tomorrow. Discussed with patient has would've the bedside. March 15: Patient seen by me this morning prior to surgery. In bed. Comfortable. Nothing by mouth. Pending surgery this afternoon. March 29: ICU. Yesterday patient underwent right revision total knee replacement the distal femoral replacement age for periprosthetic distal femur fracture. Estimated blood loss was about 600 mL. In the perioperative area patient blood pressure was running low. Patient was transferred to the ICU. Patient did receive 2 units of blood yesterday. Today patient is intubated. FiO2 85% and a PEEP of 10. Drips include we will affect, propofol, Nimbex. Patient started IV heparin for underlying suspicion of pulmonary embolism. Accu-Cheks running high has put on insulin drip. Oral gastric tube. Patient's and 2 daughters at the bedside. Discussed at length. Patient renal function also worsened. Hyperkalemia. Given bicarbonate. Being followed by [facility], nephrology. Another unit of blood pending. Hemoglobin this morning 6.7. Patient has increased right-sided heart pressures suspicious for therefore PE/fat embolism. March 30: ICU. Spiked a fever. Advair 250/50 5 and a PEEP of 8. On the ventilator. Sinus rhythm. Drips include Nimbex, propofol, IV heparin, IV insulin, IV norepinephrine. Right leg in a brace. IV ceftriaxone. March 31: ICU. On the ventilator. FiO2 45 PEEP of 5. 2 feeding at 30 mL an hour. Telemetry: Sinus rhythm. Drips include insulin, propofol, epinephrine, IV heparin. IV insulin. Cultures have been negative up to now. Remains in empirically on IV ceftriaxone. April 01: ICU. Patient underwent bronchoscopy by Dr. Babcock. 4 atelectasis on the chest x-ray. No rashes thick secretions removed from the left lower lobe. Likely mucous plugging. Currently on the ventilator with FiO2 100 a PEEP of 8. Sinus rhythm on the telemetry. Drips include IV levo fed, propofol, IV heparin, insulin. Having white secretions. IV ceftriaxone. Discussed with the patient's out of the bedside. Patient still remains critical. April 02: ICU. Overnight, last admin the nurse give medications through the OG tube medications came out through the mouth. 2 feeding was cutback. Started on a smaller rate. Remains on the ventilator. Ladson to 65 and a PEEP of 12. Levo fed was discontinued yesterday afternoon. On propofol. IV heparin, IV insulin. April 03: ICU. Remains on the ventilator. FiO2 65 PEEP of 12. Patient is off propofol. Still remained lethargic. Neurology consulted. Also includes IV heparin drip. Family including father and 2 daughters at the bedside. G-tube feeding at goal. Discuss CODE STATUS with the family. Nurse called back later that they have decided to make the patient no code April 04: ICU. On the ventilator. FiO2 50 to PEEP of 12. Having a lot of thick and clear secretions through the ET tube. Remains lethargic. Code EEG done today. On cleviprex, propofol, IV heparin changed over to Lovenox subcu twice a day. and the daughter the bedside. April 05: ICU. Ventilator. FiO2 40 PEEP of 12. Drips include cleviprex and propofol. Secretions through the G-tube. Getting 2 feeding. Discussed with the 2 daughters at the bedside. HEENT negative for seizure activity. Shows encephalopathy. Patient positive for heparin-induced platelet antibody. Consult hematology. April 06: ICU. Ventilator. FiO2 40 and a PEEP of 12. Sliding some secretions. 2 feeding at 29 mL an hour. Getting IV Lasix 40 mg twice a day. On propofol 35. Had a small BM yesterday. Patient is started on argatroban yesterday. Taken off cleviprex April 07: ICU. Ventilator. FiO2 40 and a PEEP of 10. Tube feeding continues. On IV argatroban. IV Zosyn. IV propofol. Dr. Levine spoke to the family about possible tracheostomy. and daughter the bedside. Care was discussed. I trying to make a decision. April 09: ICU. Ventilator. FiO2 40 and a PEEP of 10. On tube feeding. IV argatroban. IV Zosyn. IV propofol. Patient eyes open. Gives impression that she can follow. No limb movements. 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 Edema present. Sinus rhythm. Change Catapres patch over to.2 mg 3 times a day through OG tube Active Medications Hydrocodone Bitart/Acetaminophen (Hydrocodone/Apap 5-325mg 1 Each Tab) 1 each PO Q4HR PRN PRN Reason: Moderate Pain (Scale 4 to 6) Last Admin: 04/08/23 02:52 Dose: 1 each Albuterol/Ipratropium (Ipratropium-Albuterol 3 Ml Neb) 3 ml INHALATION RT-Q4H [facility] Last Admin: 04/08/23 08:33 Dose: 3 ml Amlodipine Besylate (Amlodipine 10 Mg Tab) 10 mg PO DAILY [facility] Last Admin: 04/08/23 08:24 Dose: 10 mg Chlorhexidine Gluconate (Chlorhexidine Gluconate 15 Ml Cup) 15 ml MUCOUS MEM BID [facility] Last Admin: 04/08/23 08:23 Dose: 15 ml Cinacalcet (Cinacalcet 30 Mg Tab) 30 mg PO MoTh@0900 [facility] Last Admin: 04/07/23 10:19 Dose: 30 mg Clonidine (Clonidine Hcl 0.2 Mg Tab) 0.2 mg PO TID [facility] Dextrose/Water (Dextrose 50% Syringe 50 Ml) 25 ml IVP PER PROTOCOL PRN; Protocol PRN Reason: Hypoglycemia Dextrose/Water (Dextrose 50% Syringe 50 Ml) 50 ml IVP PER PROTOCOL PRN; Protocol PRN Reason: Hypoglycemia Famotidine (Famotidine 20 Mg Tab) 20 mg PO BID [facility] Ferrous Sulfate (Ferrous Sulfate 325 Mg Tab) 325 mg PO DAILY [facility] Last Admin: 04/08/23 08:24 Dose: 325 mg Fluconazole (Fluconazole Oral Susp 1,400 Mg/35 Ml Bottle) 100 mg PO DAILY [facility]; Protocol Last Admin: 04/08/23 08:56 Dose: 100 mg Fluoxetine HCl (Fluoxetine Hcl 20 Mg Cap) 40 mg PO DAILY [facility] Last Admin: 04/08/23 08:24 Dose: 40 mg Furosemide (Furosemide 10 Mg/Ml 4 Ml Vial) 40 mg IV DAILY [facility] Last Admin: 04/08/23 08:57 Dose: Not Given Propofol 1,000 mg/ IV Solution 100 mls @ 10.41 mls/hr IV .Q9H37M [facility]; Protocol Last Titration: 04/08/23 10:30 Dose: 10 mcg/kg/min, 6.94 mls/hr Sodium Chloride (Saline 0.9%) 1,000 mls @ 20 mls/hr IV .Q24H [facility] Last Admin: 04/08/23 05:09 Dose: 20 mls/hr Piperacillin Sod/Tazobactam (Sod 3.375 gm/ Sodium Chloride) 100 mls @ 25 mls/hr IVPB Q8HR [facility]; Protocol Last Admin: 04/08/23 08:23 Dose: 25 mls/hr Argatroban 250 mg/ Sodium (Chloride) 250 mls @ 7.482 mls/hr IV .Q24H [facility]; Protocol Last Admin: 04/08/23 06:32 Dose: 2.5 mcg/kg/min, 18.705 mls/hr Insulin Aspart (Insulin Aspart (Novolog) 100 Unit/Ml Vial) 0 unit SQ Q6H [facility]; Protocol Last Admin: 04/08/23 05:25 Dose: Not Given Insulin Detemir (Insulin Detemir (Levemir) 100 Unit/Ml Syr) 52 unit SQ HS@1900 [facility] Last Admin: 04/07/23 18:05 Dose: 52 unit Lorazepam (Lorazepam 0.5 Mg Tab) 0.5 mg PO Q6HR PRN PRN Reason: Anxiety Last Admin: 04/08/23 06:15 Dose: 0.5 mg Metoprolol Tartrate (Metoprolol Tartrate 25 Mg Tab) 25 mg PO BID [facility] Last Admin: 04/08/23 08:24 Dose: 25 mg Miscellaneous Information (Potassium Replacement Protocol 1 Each Misc) 1 each MISCELLANE DAILY PRN; Protocol PRN Reason: Per Protocol Miscellaneous Information (Magnesium Replacement Protocol 1 Each Misc) 1 each MISCELLANE DAILY PRN; Protocol PRN Reason: Per Protocol Naloxone HCl (Naloxone 0.4 Mg/Ml 1 Ml Vial) 0.2 mg IV Q2M PRN PRN Reason: Opioid Reversal Nystatin (Nystatin 100,000 Unit/Ml Susp 500,000 Unit/5 Ml Cup) 500,000 unit PO QID [facility]; Protocol Last Admin: 04/08/23 08:22 Dose: 500,000 unit Olanzapine (Olanzapine 5 Mg Tab) 5 mg PO [facility] Last Admin: 04/07/23 20:08 Dose: 5 mg Ondansetron HCl (Ondansetron 4 Mg/2 Ml Vial) 4 mg IVP Q8HR PRN PRN Reason: Nausea And Vomiting Senna (Sennosides 8.6 Mg Tab) 8.6 mg PO BID [facility] Last Admin: 04/08/23 08:24 Dose: 8.6 mg Senna/Docusate Sodium (Sennosides-Docusate Sodium 1 Each Tab) 2 each PO [facility] Last Admin: 04/07/23 20:00 Dose: 2 each Past medical history to include: Diabetes mellitus type 2, hyperlipidemia, hypertension, osteoarthritis, peripheral neuropathy, bilateral breast cancer with bilateral mastectomies, ulcerative colitis-colonoscopy has shown normal colon and biopsy was negative., diverticulosis, chronic low back pain and arthritis, anxiety depression. COVID- 19 Social history: . Smoked for 41 years stopped in 2005. No alcohol Physical examination: VITAL SIGNS: 88.8, 85, 32, 161/53, 95% on the ventilator GENERAL: , intubated. OG tube. Eyes open. Acknowledges with facial movements. EYES: Pupils equal. Conjunctiva normal. HEENT: External appearance of nose and ears normal, oral cavity OG tube NECK: JVD unable to assess; masses not palpable. HEART: First and second heart sounds are normal; edema present LUNGS: Respiratory rate increased, decreased breath sounds ABDOMEN: Soft, nontender, liver spleen not palpable, no masses palpable. PSYCH: Unable to assess MUSCULAR skeletal: Evidence of OA especially in the hands . Right lower extremity in a brace INVESTIGATIONS, reviewed in the clinical context: April 08: WBC 8 hemoglobin 7.9 platelets 163 potassium 3.4 BUN 54 creatinine 1.07 April 07: WBC 9.6 hemoglobin 8 platelets 114 potassium 3.7 BUN 53 creatinine 1.06 Heparin-induced platelet antibody: 2.1 April 05: WBC 11.2 hemoglobin 7.9 platelets 64 potassium 4.1 BUN 49 creatinine 0.95 April 04: White count 10.5 hemoglobin 7.7 platelets 80 potassium 4.9 creatinine 0.99 March 30: White count 15.4 hemoglobin 8.8 platelets 298 potassium 3.6 BUN 53 creatinine 1.99 AST 1842 ALT 208 2-D echocardiogram: Moderate increased LVH. EF 50-55%. Severe right ventricle dilatation generalized right ventricle hypokinesis. Severe pulmonary hypertension. Moderate to severe tricuspid regurgitation. Ultrasound venous Doppler lower extremity: Limited views. No obvious DVT. Ultrasound kidney: Right kidney: Mild renal cortical thinning. Left kidney obscured. March 29: White count 20.6 hemoglobin 6.7 platelets 300 ABG: PH 7.13 pCO2 62. Potassium 5.1 BUN 40 creatinine 1.91 blood glucose 372 UA: Noted March 28: White count 9.1 hemoglobin 9.5 potassium 4.4 BUN 36 creatinine 1.37 White count 12.2 hemoglobin 11.5 platelets 510 sodium 140 potassium 4 BUN 34 creatinine 1.9 EKG tracing personally reviewed by me-normal sinus rhythm. Chest x-ray film personally reviewed by me-: Portable. No obvious infiltrate Knee x-ray/femur CT: Comminuted fracture distal metadiaphyseal femur adjacent to a knee processes. Displacement of the distal fracture fragment from the pro ximal fracture Assessment and plan: -Fall leading to acute Comminuted fracture distal metadiaphyseal femur adjacent to a knee processes. Displacement of the distal fracture fragment from the proximal fracture. March 28:right revision total knee replacement the distal femoral replacement age for periprosthetic distal femur fracture. By Dr. Stack. EBL 600 mL -Metabolic/anoxic encephalopathy. Improvement Neurology consulted. EEG negative for seizure -Mucous plugging with left lower lobe atelectasis. Status post bronchoscopy and removal of sticks tenacious secretions. 04/01/2023 -Acute severe blood loss anemia from surgery Patient received 3 units of blood -Hyperkalemia from acute kidney injury: Better -Thrombocytopenia. Positive heparin-induced antibody IV Argotroban -Acute cor pulmonale with underlying suspicious for fat embolism/pulmonary embolism with acute right ventricle dilatation and moderate to severe TR. -Acute hypotensive shock from blood loss anemia.: Better Receive 3 units of blood. IV levo fed discontinued -Acute kidney injury likely cardiorenal syndrome/ATN. From hypotension and anemia.: Better Follow with nephrology. Admission creatinine was 1.29. Peaked at 2.43. Creatinine better -COPD in an ex-smoker DuoNeb every 4 -Morbid obesity BMI 46.6 Weight loss measures -Diabetes mellitus type 2 on oral hypoglycemic,, chronically on insulin, un controlled with hyperglycemia Hold Actos. / Amaryl. Levemir to 52 units at night -Hyperlipidemia Lipitor, TriCor -Anxiety not otherwise specified Klonopin 0.5 mg 3 times a day -Depression Zyprexa 5 mg daily at bedtime, Prozac 40 mg a day -Hyperuricemia Allopurinol -Essential hypertension, -Acute hepatitis likely ischemic, improvement -Primary osteoarthritis Pain medications when necessary -Chronic kidney disease stage III from diabetic nephropathy and hypertensive nephrosclerosis Follow renal function -DO NOT RESUSCITATE Continue current treatment plan. Follow-up in [facility]. No family at the bedside.
[2023-04-08] MEDS: cloNIDine HCL 0.2 MG TAB PO SCH ×3 (11:31→21:09)
[2023-04-08 11:48] LABS: Glucose,Whole Blood 195 mg/dL (70-110)
[2023-04-08] MEDS ORDERED: POTASSIUM CHLORIDE 10 MEQ in WATER FOR INJECTION 1 100ML.BAG IVPB STA (13:51)
[2023-04-08 18:27] LABS: Glucose,Whole Blood 135 mg/dL (70-110)
[2023-04-08] MEDS: INSULIN DETEMIR (LEVEMIR) 100 UNIT/ML SYR SQ SCH ×2 (18:39→20:21)
[2023-04-08] MEDS ORDERED: POTASSIUM CHLORIDE 10 MEQ in WATER FOR INJECTION 1 100ML.BAG IVPB ONE (19:00)
[2023-04-08] MEDS ORDERED: FAMOTIDINE 20 MG TAB PO SCH ×2 (21:00)
[2023-04-08] MEDS ORDERED: cloNIDine 0.3 MG/24HR PATCH TRANSDERM SCH (21:00)
[2023-04-08] MEDS: OLANZapine 5 MG TAB PO SCH (21:08)
[2023-04-08] MEDS: SENNOSIDES-DOCUSATE SODIUM 1 EACH TAB PO SCH (21:08)
[2023-04-08 23:19] LABS: Glucose,Whole Blood 153 mg/dL (70-110)
--- NOTE | 2023-04-09 01:18 | P.PN ---
Subjective Patient is seen for follow-up for acute kidney injury and top of chronic kidney disease. Renal function has improved, Patient is currently being diuresed. Serum creatinine staying at about 1 mg/dL. Sedation has been decreased. Patient is following commands. Urine output at 100-150 ML per hour. Objective - Vital Signs Vital signs: Vital Signs Temp 99.2 F 04/08/23 21:00 Pulse 76 04/09/23 00:00 Resp 24 04/09/23 00:00 BP 160/63 04/08/23 23:00 Pulse Ox 93 L 04/09/23 00:00 FiO2 50 04/09/23 00:58 Intake & Output 04/08/23 04/08/23 04/09/23 06:59 18:59 06:59 Intake Total 1104.190 7638.798 560 Output Total 1645 1760 635 Balance -187.993 -744.202 -75 Weight 127.4 kg 127.4 kg Intake: IV 320 620 210 Magnesium Sulfate-D5w Pmx 100 1 gm In Dextrose/Water 1 100ml.bag @ 100 mls/hr IVPB ONCE ONE Rx#: [id number] Piperacillin-Tazobactam 3 100 100 .375 gm In Sodium Chloride 0.9% 100 ml @ 25 mls/hr IVPB Q8HR [facility] Rx# :[id number] Potassium Chloride 10 meq 300 100 In Water For Injection 1 100ml.bag @ 100 mls/hr IVPB ONCE STA Rx#: [id number] Sodium Chloride 0.9% 1, 220 120 110 000 ml @ 20 mls/hr IV . Q24H [facility] Rx#:[id number] Intake, IV Titration 418.007 121.798 350 Amount Argatroban 250 mg In 250 Sodium Chloride 0.9% 250 ml @ 1 MCG/KG/MIN 7.482 mls/hr IV .Q24H [facility] Rx#: [id number] Argatroban 50 mg In 146.763 Sodium Chloride 0.9% 50 ml @ 1 MCG/KG/MIN 7.482 mls/hr IV .Q6H41M [facility] Rx# :[id number] Piperacillin-Tazobactam 3 100 .375 gm In Sodium Chloride 0.9% 100 ml @ 25 mls/hr IVPB Q8HR [facility] Rx# :[id number] propofoL 1,000 mg In 271.244 121.798 Empty Bag 1 bag @ 15 MCG/ KG/MIN 10.41 mls/hr IV . Q9H37M [facility] Rx#:[id number] Tube Feeding 319 174 Other 400 100 Output: Urine 1645 1760 635 Other: Voiding Method Indwelling Catheter Indwelling Catheter Indwelling Catheter ABP, PAP, CO, CI - Last Documented Arterial Blood Pressure 124/41 - Exam Patient is intubated and on the vent Awake and following commands FiO2 at 50% Examination of the heart S1 and S2 Examination of the lungs bilateral breath sounds are heard Abdomen is soft obese Examination of lower extremities shows edema 2+ bilaterally upper and lower extremities - Labs CBC & Chem 7: 04/08/23 05:18 04/08/23 23:59 Labs: Abnormal Lab Results - Last 24 Hours (Table) 04/08/23 04/08/23 04/08/23 Range/Units 05:13 05:18 05:18 RBC 2.75 L (3.80-5.40) m/uL Hgb 7.9 L (11.4-16.0) gm/dL Hct 25.0 L (34.0-46.0) % RDW 17.1 H (11.5-15.5) % Metamyelocytes # (Man) 0.24 H (0) k/uL Nucleated RBCs 1 H (0-0) /100 WBC APTT 68.6 H (22.0-30.0) sec ABG pH (7.35-7.45) ABG pO2 (83-108) mmHg ABG HCO3 (21-25) mmol/L ABG Total CO2 (19-24) mmol/L ABG O2 Saturation (94-97) % Potassium (3.5-5.1) mmol/L Carbon Dioxide (22-30) mmol/L BUN (7-17) mg/dL Creatinine (0.52-1.04) mg/dL Glucose (74-99) mg/dL POC Glucose (mg/dL) 141 H (70-110) mg/dL 04/08/23 04/08/23 04/08/23 Range/Units 05:18 05:48 11:46 RBC (3.80-5.40) m/uL Hgb (11.4-16.0) gm/dL Hct (34.0-46.0) % RDW (11.5-15.5) % Metamyelocytes # (Man) (0) k/uL Nucleated RBCs (0-0) /100 WBC APTT (22.0-30.0) sec ABG pH 7.53 H (7.35-7.45) ABG pO2 80 L (83-108) mmHg ABG HCO3 33 H (21-25) mmol/L ABG Total CO2 34 H (19-24) mmol/L ABG O2 Saturation 97.3 H (94-97) % Potassium 3.4 L (3.5-5.1) mmol/L Carbon Dioxide 32 H (22-30) mmol/L BUN 54 H (7-17) mg/dL Creatinine 1.07 H (0.52-1.04) mg/dL Glucose 134 H (74-99) mg/dL POC Glucose (mg/dL) 195 H (70-110) mg/dL 04/08/23 04/08/23 Range/Units 18:09 23:17 RBC (3.80-5.40) m/uL Hgb (11.4-16.0) gm/dL Hct (34.0-46.0) % RDW (11.5-15.5) % Metamyelocytes # (Man) (0) k/uL Nucleated RBCs (0-0) /100 WBC APTT (22.0-30.0) sec ABG pH (7.35-7.45) ABG pO2 (83-108) mmHg ABG HCO3 (21-25) mmol/L ABG Total CO2 (19-24) mmol/L ABG O2 Saturation (94-97) % Potassium (3.5-5.1) mmol/L Carbon Dioxide (22-30) mmol/L BUN (7-17) mg/dL Creatinine (0.52-1.04) mg/dL Glucose (74-99) mg/dL POC Glucose (mg/dL) 135 H 153 H (70-110) mg/dL Assessment and Plan Assessment: . Acute kidney injury secondary to hemodynamic ATN/shock. Creatinine 1.29 on admission and peaked at 2.43 this admission - 1.0 today. No hydronephrosis noted on kidney ultrasound. Left kidney not visualized. 2. Chronic kidney disease stage IIIa with baseline creatinine 1-1.2 secondary to nephrosclerosis/diabetic kidney disease. 3. History of hypercalcemia maintained on Sensipar. Sensipar was held as calcium was on the lower side but it increased to 10.2 with albumin 2.6 and Sensipar was restarted. Calcium 10.1 today 4. Acute blood loss anemia status post blood transfusions this admission. 5. Hyperkalemia secondary to acute kidney injury, hyperglycemia, acidosis and acute blood loss. Improved 6. Status post knee revision 03/28/2023. 7. Diabetes mellitus. 8. Questionable PE with severe pulmonary hypertension and moderate to severe tricuspid regurgitation. Off of IV heparin 9. Lower extremity edema. 10. Hypernatremia from lack of oral water intake and free water deficit, improved Plan: Continue to diurese patient Agree with increasing amlodipine Continue with free water down feeding tube. Repeat labs in a.m.
[2023-04-09] MEDS ORDERED: POTASSIUM CHLORIDE 10 MEQ in WATER FOR INJECTION 1 100ML.BAG IVPB STA ×2 (01:46→06:03)
[2023-04-09 05:24] LABS: Glucose,Whole Blood 144 mg/dL (70-110)
[2023-04-09 05:34] LABS: Anisocytosis Slight; Basophils % (A) 1 %; Eosinophils # (A) 0.2 k/uL (0-0.7); Eosinophils % (A) 3 %; HCT 24.8 % (34.0-46.0); HGB 7.7 gm/dL (11.4-16.0); Hypochromasia Marked; Lymphocytes # (A) 1.4 k/uL (1.0-4.8); Lymphocytes % (A) 21 %; MCH 29.3 pg (25.0-35.0); MCHC 30.9 g/dL (31.0-37.0); Mean Platelet Volume 9.5; Monocytes # (A) 0.5 k/uL (0-1.0); Monocytes % (A) 7 %; Neutrophils # (A) 4.3 k/uL (1.3-7.7); Neutrophils % (A) 65 %; Platelet Count 198 k/uL (150-450); RBC 2.61 m/uL (3.80-5.40); RDW 16.4 % (11.5-15.5); WBC 6.6 k/uL (3.8-10.6)
[2023-04-09 05:42] LABS: Calcium 10.6 mg/dL (8.4-10.2); Magnesium 2.1 mg/dL (1.6-2.3); Potassium 4.1 mmol/L (3.5-5.1)
[2023-04-09] MEDS: INSULIN ASPART (NovoLOG) 100 UNIT/ML VIAL SQ SCH ×4 (06:30→23:22)
[2023-04-09] MEDS: SODIUM CHLORIDE 0.9% 1,000 ML IV SCH (06:44)
--- NOTE | 2023-04-09 07:00 | XR ---
EXAMINATION TYPE: XR chest 1V portable DATE OF EXAM: 04/09/2023 CLINICAL HISTORY: Difficulty breathing progress study. TECHNIQUE: Single AP portable upright view of the chest is obtained. COMPARISON: Chest x-ray from one day earlier and older studies. FINDINGS: Interval extubation with removal of endotracheal and orogastric tubes. Stable left-sided s ubclavian central venous catheter. Persistent left basilar opacity. Upper lungs are clear without pneumothorax. Cardiac silhouette size is stable and upper limits of normal. Osseous structures are intact.. IMPRESSION: Interval extubation. Left basilar acute infiltrate and/or atelectasis and likely small bi lateral pleural effusions not significantly changed from one day earlier.
[2023-04-09] MEDS: IPRATROPIUM-ALBUTEROL 3 ML NEB INHALATION SCH ×4 (08:04→20:13)
[2023-04-09] MEDS: CHLORHEXIDINE GLUCONATE 15 ML CUP MUCOUS MEM SCH (09:02)
[2023-04-09] MEDS: cloNIDine HCL 0.2 MG TAB PO SCH ×2 (09:09→17:02)
[2023-04-09] MEDS: PIPERACILLIN-TAZOBACTAM 3.375 GM in SODIUM CHLORIDE 0.9% 100 ML IVPB SCH (09:18)
[2023-04-09] MEDS: FERROUS SULFATE 325 MG TAB PO SCH (09:18)
[2023-04-09] MEDS: DEXTROSE 5% IN WATER 1,000 ML IV SCH (09:18)
[2023-04-09] MEDS: SENNOSIDES 8.6 MG TAB PO SCH ×2 (09:18→20:45)
[2023-04-09] MEDS: FLUoxetine HCL 20 MG CAP PO SCH (09:18)
[2023-04-09] MEDS: NYSTATIN 100,000 UNIT/ML SUSP 500,000 UNIT/5 ML CUP PO SCH ×4 (09:19→20:46)
[2023-04-09] MEDS: FUROSEMIDE 10 MG/ML 4 ML VIAL IV SCH (09:19)
[2023-04-09] MEDS: METOPROLOL TARTRATE 25 MG TAB PO SCH ×2 (09:19→20:45)
[2023-04-09] MEDS: amLODIPine 10 MG TAB PO SCH (09:19)
--- NOTE | 2023-04-09 10:23 | P.PN ---
Subjective Progress Note Date: 04/09/23 Principal diagnosis: This is a 72-year-old female seen in consultation because of acute kidney injury, secondary to prerenal causes from post knee revision on 03/28/2023. Also known with chronic kidney disease secondary stage III with baseline creatinine of 1.2 and possibly diabetic nephropathy as well. Her creatinine peaked at 2.43 on 03/30/2023 and is improved to 0.95 as of 04/05/2023. Current creatinine is 1.1. Additionally she is known with hypercalcemia and was maintained on Sensipar. She was extubated. She feels fairly well and has any complaints. Objective - Vital Signs Vital signs: Vital Signs Temp 99 F 04/09/23 04:00 Pulse 83 04/09/23 10:00 Resp 18 04/09/23 10:00 BP 160/63 04/09/23 04:00 Pulse Ox 95 04/09/23 10:00 FiO2 50 04/09/23 08:07 Intake & Output 04/08/23 04/09/23 04/09/23 18:59 06:59 18:59 Intake Total 1015.798 900 300 Output Total 1760 1175 305 Balance -744.202 -275 -5 Weight 127.4 kg 121.6 kg Intake: IV 620 550 300 Magnesium Sulfate-D5w Pmx 100 1 gm In Dextrose/Water 1 100ml.bag @ 100 mls/hr IVPB ONCE ONE Rx#: [id number] Piperacillin-Tazobactam 3 100 .375 gm In Sodium Chloride 0.9% 100 ml @ 25 mls/hr IVPB Q8HR [facility] Rx# :[id number] Potassium Chloride 10 meq 300 300 300 In Water For Injection 1 100ml.bag @ 100 mls/hr IVPB ONCE STA Rx#: [id number] Sodium Chloride 0.9% 1, 120 250 000 ml @ 20 mls/hr IV . Q24H [facility] Rx#:[id number] Intake, IV Titration 121.798 350 Amount Argatroban 250 mg In 250 Sodium Chloride 0.9% 250 ml @ 1 MCG/KG/MIN 7.482 mls/hr IV .Q24H [facility] Rx#: [id number] Piperacillin-Tazobactam 3 100 .375 gm In Sodium Chloride 0.9% 100 ml @ 25 mls/hr IVPB Q8HR [facility] Rx# :[id number] propofoL 1,000 mg In 121.798 Empty Bag 1 bag @ 15 MCG/ KG/MIN 10.41 mls/hr IV . Q9H37M [facility] Rx#:[id number] Tube Feeding 174 Other 100 Output: Urine 1760 1175 305 Other: Voiding Method Indwelling Catheter Indwelling Catheter Indwelling Catheter ABP, PAP, CO, CI - Last Documented Arterial Blood Pressure 153/51 Currently she is awake alert oriented on nasal cannula oxygen HEENT exam no JVP neck is supple no facial asymmetry Lungs clear to auscultation fair air entry Heart sounds unremarkable Abdomen soft nontender Extremities arms significant edema of the arm and mild edema of the legs. Neurologically awake alert oriented - Labs CBC & Chem 7: 04/09/23 05:15 04/09/23 05:15 Labs: Abnormal Lab Results - Last 24 Hours (Table) 04/08/23 04/08/23 04/08/23 Range/Units 11:46 18:09 23:17 RBC (3.80-5.40) m/uL Hgb (11.4-16.0) gm/dL Hct (34.0-46.0) % MCHC (31.0-37.0) g/dL RDW (11.5-15.5) % APTT (22.0-30.0) sec Sodium (137-145) mmol/L Chloride (98-107) mmol/L Carbon Dioxide (22-30) mmol/L BUN (7-17) mg/dL Creatinine (0.52-1.04) mg/dL Glucose (74-99) mg/dL POC Glucose (mg/dL) 195 H 135 H 153 H (70-110) mg/dL Calcium (8.4-10.2) mg/dL 04/09/23 04/09/23 04/09/23 Range/Units 05:15 05:15 05:15 RBC 2.61 L (3.80-5.40) m/uL Hgb 7.7 L (11.4-16.0) gm/dL Hct 24.8 L (34.0-46.0) % MCHC 30.9 L (31.0-37.0) g/dL RDW 16.4 H (11.5-15.5) % APTT 66.0 H (22.0-30.0) sec Sodium 146 H (137-145) mmol/L Chloride 110 H (98-107) mmol/L Carbon Dioxide 33 H (22-30) mmol/L BUN 46 H (7-17) mg/dL Creatinine 1.10 H (0.52-1.04) mg/dL Glucose 133 H (74-99) mg/dL POC Glucose (mg/dL) (70-110) mg/dL Calcium 10.6 H (8.4-10.2) mg/dL 04/09/23 Range/Units 05:23 RBC (3.80-5.40) m/uL Hgb (11.4-16.0) gm/dL Hct (34.0-46.0) % MCHC (31.0-37.0) g/dL RDW (11.5-15.5) % APTT (22.0-30.0) sec Sodium (137-145) mmol/L Chloride (98-107) mmol/L Carbon Dioxide (22-30) mmol/L BUN (7-17) mg/dL Creatinine (0.52-1.04) mg/dL Glucose (74-99) mg/dL POC Glucose (mg/dL) 144 H (70-110) mg/dL Calcium (8.4-10.2) mg/dL Assessment and Plan Assessment: Impression 1. Acute kidney injury from prerenal factors from postop knee surgery creatinine improved from 2.43-1.1. 2. Significant edema. Currently on Lasix, 40 mg IV daily started yesterday. Urine output is 29 and 35 mL. 3. Chronic kidney disease stage III diabetic nephropathy and nephrosclerosis with baseline creatinine 1.2. 4. Hypercalcemia maintained on Sensipar. 5. Questionable pulmonary embolism and severe pulmonary hypertension with moderate to severe tricuspid regurgitation. 6. Status post knee surgery. Recommendation 1. Maintain Lasix 40 mg daily IV as her urine output is satisfactory and it Edema to improve. 2. Will watch her blood pressure is expected to improve.
--- NOTE | 2023-04-09 10:52 | P.PN ---
Subjective Progress Note Date: 04/09/23 Principal diagnosis: Respiratory failure. Patient was reevaluated today on 04/01/2023, remains in the ICU, intubated and mechanically ventilated. She is now on assist control rate of 32 tidal volume of 450 FiO2 45% and PEEP of 5 ABG showed a pO2 of 65 pCO2 43 pH of 7.34 hence Fi O2 was increased to 50%. Chest x-ray showed atelectasis of the left lower lobe as the patient underwent bronchoscopy today, and suction some tenacious secretions in the left lower lobe bronchus. No evidence of any other significant findings. Fluid obtained was sent for diagnostic studies. Patient remains on propofol at 20 mcg/kg/m she is also on heparin drip for presumptive pulmonary embolism she is receiving insulin at 5.3 units per hour norepinephrine at low-dose, however this was discontinued once the patient woke up and evaluated off propofol. Patient remains on Rocephin empirically, cultures have been negative so far. Awaiting cultures from the BAL of the left lower lobe today. Obviously the patient is not quite ready for weaning off propofol she was noted to be tachypneic, tachycardic, and her blood pressure was as high as 200 systolic. Hence no further weaning to be done today. And her ventilator settings will be adjusted accordingly after bronchoscopy and BAL. Labs today were reviewed she has a bit of leukocytosis with WBC count of 16.9 her PTT is therapeutic at 45.7 and electrolytes are normal BUN is down to 46 creatinine is down to 1.20 will continue to monitor heparin for now and monitor her renal status, may eventually recommend CT angiogram of the chest to confirm whether the patient had thromboembolic disease/pulmonary embolism. Pro calcitonin level was 1.91, nonetheless patient remains on Rocephin. So far urine cultures and blood cultures and sputum cultures have been negative Patient was reevaluated today on 04/02/2023, remains in the ICU, intubated and mechanically ventilated. Patient had a bit of a setback last night, apparently there was some issues with the nasogastric tube, and it was felt that the patient may have aspirated some of her feedings from the nasogastric tube, hence this tube was removed and another tube was placed, follow-up chest x-ray showed adequate placement of the orogastric tube. In the meantime the patient desat urated and she required increase in her FiO2. She went up as high as 75% PEEP was increased to 8 and today I recommended increasing the PEEP to 12 and FiO2 down to 65%. And advised titration. Chest x-ray continues to show left lower lobe consolidation. Right side seems to be relatively clear. ABG this morning showed a pO2 of 84 pCO2 51 pH of 7.39. Patient is on propofol at 50 mcg/kg/m she is also on insulin at 4.25 units per hour vital HPI 29 mL/h she is off norepinephrine. Considering the aspiration situation I recommended that we change antibiotics to Zosyn cultures from the BAL of the left lower lobe are pending. Her vent settings changed to assist control rate of 32 tidal volume 450 FiO2 65% and PEEP of 12. WBC count is 10.6 hemoglobin is 7.2 PTT is 35.6, electrolytes are normal BUN is 53 creatinine 1.[address] angiogram of the chest in the next 24-48 hours in the meantime the patient seems to be tolerating heparin well Reevaluated today on 04/03/2023, patient remains in the ICU, intubated and mechanically ventilated. Her assist-control rate is 3 to tidal volume is 450 FiO2 60% and I cut down today to 50% PEEP is at 12. Patient remains on propofol at 50 mcg/kg/m remains on heparin drip, she is also on vital HPI 29 mL per hour. Antibiotics aguirre remains on Zosyn, cultures have been negative along. Even though washing from the BAL of the left lower lobe remains nondiagnostic. ABG showed a pO2 of 108 pCO2 42 pH of 7.45 hence FiO2 was cut down from 60% to 50%. Patient has been off sedation, she does not seem to be appropriate, she opens her eyes, but does not follow any instructions, she seems to be confused, and encephalopathic. Hence I initiated a neurological consultation, I believe the patient may have sustained fat embolism to explain her mental status. Would like to have a CT of the brain and CT of the chest, however the patient cannot lay flat, and she desaturates significantly upon laying flat, hence we'll hold on both for now. Her urine output is excellent and she was given more Lasix a day. Her pain seems to be under control and her blood pressure seems to respond well to Dilaudid every 2 hours as needed. Considering her ABG is marginal and considering that the patient is requiring relatively high PEEP I am not yet ready to extubate the patient also concerned about her mental status. WBC count is 10.9 hemoglobin is 7.4. PTT is 53.6. BUN is 56 creatinine is 1.07. Considering CT angiogram of the chest but because of her inability to lay flat and she desaturates easily him holding on the CT angiogram of the chest for now. Progress note dated 04/04/2023. 72-year-old female admitted back on March 26. She had a fall and fractured her right femur. She went to the operating room on March 28, and was intubated on that day. She was thought to possibly have pulmonary embolism, or fat embolism syndrome. Because of her instability, she's not been able to go for a CT angiogram. Currently, she remains on the ventilator, at volume assist control, rate 32, , tidal volume 450, FiO2 50%, and PEEP of 12. Blood gases show pO2 of 91, pCO2 44, and pH is 7.44. She remains on propofol at 75 mcg/kg/m, IV heparin, 0.9 at KVO, and vital, at 23 mL an hour, which is goal. The nurse has a number of issues today and redressed some all. For her blood pressure elevation, we start her on Cleveprex, to be titrated slowly systolic blood pressures less than 160 and the mean is less than 100. We had backed the patien t's Toprol-XL. In addition, because of fluid retention, we'll give the patient Lasix 60 mg IV push. We will dose daily based on her I's and O's. We also will discontinue heparin, and started on Lovenox 120 mg subcu every 12 hours. This is because her platelet count has declined to 80,000. In addition, we will order that heparin-induced thrombocytopenia antibodies. White count 10.5, hemoglobin 7.7, hematocrit 23.8, and platelet count 80,000. Sodium 142, potassium 4.9, chlorides 108, CO2 28, BUN 54, creatinine 0.99. Microbiologic sampling has been negative. Chest x-ray shows changes of COPD, with a small left-sided pleural effusion, and retrocardiac atelectasis or consolidation. Progress note dated 04/05/2023. 72-year-old female admitted back on March 26. She had a fall and a fractured right femur. She went to the operating room on March 28, and was intubated on that day. She was thought to have possibly a pulmonary embolism, or fat embolism syndrome. Because of instability, the patient has not been able to go down for a CT angiogram. She did have Dopplers of the lower extremity that were negative. She remains on mechanical ventilator. She is on the volume assist control, rate 32, tidal volume 450, FiO2 50%, and a PEEP of 12. Arterial blood gases show pO2 of 68, pCO2 45, and a pH is 7.45. The patient remains on Cleveprex at 4 mg an hour, propofol at 50 mcg/kg/m, saline at 10 mL an hour, and vital, at 29 mL an hour, which is goal. White count 11.2, hemoglobin 7.9, hematocrit 24.9, and platelet count 64,000. Sodium 139, potassium 4.1, chlorides 104, CO2 29, BUN 49, and creatinine 0.95. Glucose 168. Microbiologic data is negative. Chest x-rays consistent with mild fluid overload. There may be some basilar infiltrates or atelectasis. Progress note dated 04/06/2023. 72-year-old female admitted back on March 26. Should a fall with a fractured right femur. She went to the operating room 2 days later on the , to have the fracture repaired. She was placed on the ventilator at that time, and has been on the ventilator since. She was thought to possibly have either fat embolism syndrome, or a pulmonary embolism. She's been too unstable, to take down for a computed tomography scan of the chest, and now, her renal function is such that the dye, with injured her kidneys even further. Also, yesterday, because of dropping platelet counts, we ordered the heparin-induced thrombocytopenia panel, and it was positive, so I started the patient on A rgatroban, at 2.5 mcg/kg/m. The platelet counts actually a bit higher today. She remains on the ventilator, volume assist control, rate 32, out of I'm 450, FiO2 40%, and PEEP of 12. Blood gases show pO2 of 70, pCO2 43, and a pH is 7.49. His blood gases consistent with a very mild metabolic alkalosis. In addition to Argatroban, the patient is on propofol at 40 mcg/kg/m, and Cleveprex at 2 mg an hour, which may be discontinued. She's getting tube feedings with vital at 29 mL an hour, which is goal. Today, we will lessen her sedation, for a daily interruption of sedation. She is likely not ready for a spontaneous breathing trial. White count 12.1, hemoglobin 8.2, hematocrit 25.6, and p latelet count 78,000. Yesterday was 64,000. The patient's sodium is 141, potassium 4.1, chlorides 101, CO2 32, BUN 50, creatinine 1.11. Microbiologic studies are all negative thus far. Chest x-ray this morning shows atelectasis or infiltrate at the right lung base, and some consolidation or fluid at the left lung base. Progress note dated 04/07/2023. 72-year-old female admitted back on March 26, status post fall, with a fractured right femur. The patient went to the operating room for repair, 2 days later on the , and subsequently has been on mechanical ventilator, and has not been able to be weaned off. The patient has had a number of issues including elevated blood pressures, requiring multiple blood pressure medications including IV Cleveprex, the potential for the possibility of pulmonary embolism versus fat embolism syndrome, high oxygen and PEEP requirements, and more rec ently, the development of heparin-induced thrombocytopenia. Ventilator settings include assist control, rate 32, tidal volume 450, FiO2 40%, with 10. Blood gases show pO2 of 96, pCO2 38, and a pH is 7.53. The patient has a metabolic alkalosis, secondary to volume contraction, and mild hypokalemia. The patient's getting saline at 20 mL an hour, propofol at 20 mcg/kg/m, argatroban at 2.5 mcg/kg/m, and vital high protein at goal, which is 63 mL an hour. White count 9.6, hemoglobin 8, hematocrit 25.4, and platelet count is now up to 114,000. PTT is 68.9. Sodium 142, potassium 3.7, chlorides 104, CO2 33, BUN 53, and creatinine 1.06. The patient's chest x-ray shows improving pulmonary vascular congestion. Progress note dated 04/08/2023. 72-year-old female again seen in room 264. The patient remains on mechanical ventilation. We will attempt another daily interruption of sedation. Yesterday, with a DIS, she did very poorly. Her ventilator settings include the volume assist control, rate 32, tidal volume 450, FiO2 40% and PEEP of 10. Blood gases show pO2 of 80, pCO2 39, and a pH is 7.53. The patient has a mild/moderate metabolic alkalosis secondary to volume contraction, and hypokalemia. The patient's on propofol at 35 mcg/kg/m, 0.90 KVO, vital high protein at goal, which is 29 mL an hour, and argatroban, at 2.5 mcg/kg/m. White count 8.0, hemoglobin 7.9, hematocrit 25, and platelet count 163,000. PTT is 68.6. Sodium 144, potassium 3.4, chlorides 106, CO2 32, BUN 54, and creatinine 1.07. Microbiologic studies are negative. Chest x-ray shows evidence of left basilar consolidation, small left pleural effusion, as well as some patchy right-sided atelectasis or infiltrate. This patient has been intubated since March 28. Progress note dated 04/09/2023. 72-year-old female again seen in room 264. Yesterday, the patient was extubated. The patient did spend the night on BiPAP. Her BiPAP settings were 12/5 and 50%. The patient's currently on 12 L high flow oxygen. She's getting D5W at 30 mL an hour, which is replacing her saline. We also we'll DC her Ar gatroban. Yesterday, and a conversation with her daughter Jyoti, and thought this was a right time to get her extubated. The patient will not be reintubated should she fail. We can use all forms of oxygen therapy, including AIRVO, and BiPAP, but no intubation or mechanical ventilation. White count 6.6, hemoglobin 7.7, hematocrit 24.8, and platelet count was 198,000. PTT is 66. Sodium 146, potassium 4.1, chlorides 110, CO2 38, anion gap 3, BUN 46, and creatinine 1.10. Chest x-ray shows some mild bibasilar left greater than right, atelectasis or infiltrate. Microbiologic studies have been negative. Objective - Vital Signs Vital signs: Vital Signs Temp 99 F 04/09/23 04:00 Pulse 83 04/09/23 10:00 Resp 18 04/09/23 10:00 BP 160/63 04/09/23 04:00 Pulse Ox 95 04/09/23 10:00 FiO2 50 04/09/23 08:07 Intake & Output 04/08/23 04/09/23 04/09/23 18:59 06:59 18:59 Intake Total 1015.798 900 300 Output Total 1760 1175 305 Balance -744.202 -275 -5 Weight 127.4 kg 121.6 kg Intake: IV 620 550 300 Magnesium Sulfate-D5w Pmx 100 1 gm In Dextrose/Water 1 100ml.bag @ 100 mls/hr IVPB ONCE ONE Rx#: [id number] Piperacillin-Tazobactam 3 100 .375 gm In Sodium Chloride 0.9% 100 ml @ 25 mls/hr IVPB Q8HR [facility] Rx# :[id number] Potassium Chloride 10 meq 300 300 300 In Water For Injection 1 100ml.bag @ 100 mls/hr IVPB ONCE [facility] Rx#: [id number] Sodium Chloride 0.9% 1, 120 250 000 ml @ 20 mls/hr IV . Q24H [facility] Rx#:[id number] Intake, IV Titration 121.798 350 Amount Argatroban 250 mg In 250 Sodium Chloride 0.9% 250 ml @ 1 MCG/KG/MIN 7.482 mls/hr IV .Q24H [facility] Rx#: [id number] Piperacillin-Tazobactam 3 100 .375 gm In Sodium Chloride 0.9% 100 ml @ 25 mls/hr IVPB Q8HR [facility] Rx# :[id number] propofoL 1,000 mg In 121.798 Empty Bag 1 bag @ 15 MCG/ KG/MIN 10.41 mls/hr IV . [id number] [facility] Rx#:[id number] Tube Feeding 174 Other 100 Output: Urine 1760 1175 305 Other: Voiding Method Indwelling Catheter Indwelling Catheter Indwelling Catheter ABP, PAP, CO, CI - Last Documented Arterial Blood Pressure 153/51 - Exam No acute distress, awake, verbal, on 12 L high flow oxygen. HEENT examination is grossly unremarkable. Neck supple. Full range of motion. No adenopathy thyromegaly or neck vein distention. Cardiovascular examination reveals regular rhythm rate. S1-S2 normal. No S3 or S4. No discernible murmur noted. Heart sounds are distant. Heart rate 83 bpm. Lungs reveal scattered bilateral rhonchi. No wheezes or crackles. Breath sounds equal. Saturation is 95 % Abdomen obese, with bowel sounds. Extremities are intact. No cyanosis or clubbing. There is diffuse edema and anasarca. Skin is without rash or lesion. Neurologic examination is brief but nonfocal. - Labs CBC & Chem 7: 04/09/23 05:15 04/09/23 05:15 Labs: Abnormal Lab Results - Last 24 Hours (Table) 04/08/23 04/08/23 04/08/23 Range/Units 11:46 18:09 23:17 RBC (3.80-5.40) m/uL Hgb (11.4-16.0) gm/dL Hct (34.0-46.0) % MCHC (31.0-37.0) g/dL RDW (11.5-15.5) % APTT (22.0-30.0) sec Sodium (137-145) mmol/L Chloride (98-107) mmol/L Carbon Dioxide (22-30) mmol/L BUN (7-17) mg/dL Creatinine (0.52-1.04) mg/dL Glucose (74-99) mg/dL POC Glucose (mg/dL) 195 H 135 H 153 H (70-110) mg/dL Calcium (8.4-10.2) mg/dL 04/09/23 04/09/23 04/09/23 Range/Units 05:15 05:15 05:15 RBC 2.61 L (3.80-5.40) m/uL Hgb 7.7 L (11.4-16.0) gm/dL Hct 24.8 L (34.0-46.0) % MCHC 30.9 L (31.0-37.0) g/dL RDW 16.4 H (11.5-15.5) % APTT 66.0 H (22.0-30.0) sec Sodium 146 H (137-145) mmol/L Chloride 110 H (98-107) mmol/L Carbon Dioxide 33 H (22-30) mmol/L BUN 46 H (7-17) mg/dL Creatinine 1.10 H (0.52-1.04) mg/dL Glucose 133 H (74-99) mg/dL POC Glucose (mg/dL) (70-110) mg/dL Calcium 10.6 H (8.4-10.2) mg/dL 04/09/23 Range/Units 05:23 RBC (3.80-5.40) m/uL Hgb (11.4-16.0) gm/dL Hct (34.0-46.0) % MCHC (31.0-37.0) g/dL RDW (11.5-15.5) % APTT (22.0-30.0) sec Sodium (137-145) mmol/L Chloride (98-107) mmol/L Carbon Dioxide (22-30) mmol/L BUN (7-17) mg/dL Creatinine (0.52-1.04) mg/dL Glucose (74-99) mg/dL POC Glucose (mg/dL) 144 H (70-110) mg/dL Calcium (8.4-10.2) mg/dL Assessment and Plan Assessment: Acute hypoxemic and hypercapnic respiratory failure, possibly secondary to pulmonary embolism, or fat embolism syndrome. Status post intubation and mechanical ventilation, beginning on March 28, with extubation on 04/08/2023. Postop day #12, status post repair of comminuted right femur fracture. 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 Hypotension, which may relate to PE, or FES, resolved. Acute kidney injury. Acute blood loss anemia. Lactic acidemia secondary to hypotension and hypoperfusion. Shock liver. Previous right total knee replacement. Morbid obesity. History of obstructive sleep apnea syndrome. Previous history of tobacco use. Left lower lobe atelectasis versus pneumonia. Status post bronchoscopy and BAL, postop day #8. Mental status changes, likely related to metabolic encephalopathy. Plan: Plan dated 04/04/2023. The patient is started back on Toprol, which she was taking as an outpatient, and we also added IV Cleveprex, is a dihydropyridine calcium channel alisha, for better blood pressure support. I put targets of systolics less than 160, and mean arterial pressures of less than 100 to the nurse. The patient will get Lasix 60 mg IV push once. We'll DC the IV heparin in favor of Lovenox 120 mg subcu every 12 hours. HIT antibodies are ordered. Labs, x-rays, medications are all reviewed. We will continue to follow make recommendations along the way. Prognosis is guarded. Plan dated 04/05/2023. The patient's blood pressure is under better control. The patient continues on Cleveprex, and propofol. I attempted to call the , Khoa, but he did not pickle solution maker the phone. The nurse will restart the family. Labs, x-rays, medications are all reviewed. The patient was intubated on March 28. Because of relatively higher FiO2's, and PEEP levels, the patient is not a candidate for extubation. By the end of the week, the patient is to continue as a full code, we'll talk to the family about tracheostomy and PEG tube placement. Prognosis is certainly guarded. We will continue to follow the platelet count. She was switched from heparin to low molecular weight heparin yesterday. Plan dated 04/06/2023. Currently, the patient remains on propofol, and a small dose of Cleveprex. She's also getting tube feedings at goal. The heparin-induced thrombocytopenia panel came back positive, and the patient was started on Argatroban. The nurse will lessen the patient's sedation today, to evaluate her mental status. In addition, I had a long discussion with the daughter, Jyoti, and spoke to her about the various issues including the renal dysfunction, the pluses and minuses of doing a CT angiogram, and the problem with the platelets. In addition, we spoke about the possibility of tracheostomy and PEG tube placement. She mentioned that the patient would not once that. Because of last day and a half is been a bit better, will hold off for now. Labs, x-rays, and medications are reviewed. Prognosis is guarded. We will continue to follow make recommendations along the way. Plan dated 04/07/2023. The patient appears to be doing a bit better from the standpoint of her platelet count. I forcefully, we did a daily interruption of sedation today, the patient became very unstable, with lower saturations, and acute elevations in blood pressure. The patient was re-sedated. I will notify the family of this, we speak tomorrow. We will try to get the patient's potassium 4.5 mEq per liter. This will help the patient's metabolic alkalosis. Also, for additional blood pressure support, we added a clonidine patch, TTS #2. Labs, x-rays, medications are reviewed. Prognosis is guarded. 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 Plan dated 04/08/2023. The patient appears to be doing about the same. She remains on mechanical ventilator. She continues on propofol, and argatroban yesterday, the patient miserably failed her daily interruption of sedation. We'll attempt another daily interruption of sedation today. I will which out to her daughter Jyoti, for guidance. She remains on mechanical ventilator. Her blood gases show a primary metabolic alkalosis, secondary to volume contraction and hypokalemia. Labs, x- rays, and all medications are reviewed. Prognosis is certainly guarded. The patient may be a candidate for comfort care, if she does not do well today on her daily interruption of sedation. The patient's daughter stated that she would never want a tracheostomy tube and/or PEG tube placement. Plan dated 04/09/2023. The patient had very reasonable weaning parameters yesterday, with a very low rapid shallow breathing index, and a positive cuff leak. Therefore, we took the opportunity to extubate her. I did speak to her daughter Jyoti before hand, and she confirmed that that, the patient was not to be reintubated. The patient is currently on 12 L high flow oxygen. The patient's getting saline at KVO, to be converted to D5W at 30 mL an hour. The patient did use BiPAP at nighttime, with settings of 12/5, and 50%. The Argatroban was discontinued. Labs, x-rays, and medications are all reviewed. Zosyn can be discontinued. We will continue to follow make recommendations along the way. Prognosis is guarded. Time with Patient: Greater than 30
[2023-04-09] MEDS: FLUCONAZOLE ORAL SUSP 1,400 MG/35 ML BOTTLE PO SCH (11:15)
[2023-04-09] MEDS: POTASSIUM CHLORIDE 10 MEQ in WATER FOR INJECTION 1 100ML.BAG IVPB SCH ×5 (11:37→23:27)
[2023-04-09 11:45] LABS: Glucose,Whole Blood 175 mg/dL (70-110)
--- NOTE | 2023-04-09 13:20 | P.PN ---
Subjective Progress Note Date: 04/09/23 -Transition to nasal cannula from BiPAP this morning -She is currently feeling well with no acute complaints Objective - Vital Signs Vital signs: Vital Signs Temp 98.7 F 04/09/23 12:00 Pulse 75 04/09/23 13:00 Resp 15 04/09/23 13:00 BP 160/63 04/09/23 12:00 Pulse Ox 92 L 04/09/23 13:00 FiO2 50 04/09/23 08:07 Intake & Output 04/08/23 04/09/23 04/09/23 18:59 06:59 18:59 Intake Total 1015.798 900 175 Output Total 1760 1175 1405 Balance -795.202 -815 -5096 Weight 127.4 kg 121.6 kg Intake: IV 620 550 175 Magnesium Sulfate-D5w Pmx 100 1 gm In Dextrose/Water 1 100ml.bag @ 100 mls/hr IVPB ONCE ONE Rx#: [id number] Piperacillin-Tazobactam 3 100 75 .375 gm In Sodium Chloride 0.9% 100 ml @ 25 mls/hr IVPB Q8HR [facility] Rx# :[id number] Potassium Chloride 10 meq 300 300 100 In Water For Injection 1 100ml.bag @ 100 mls/hr IVPB ONCE [facility] Rx#: [id number] Sodium Chloride 0.9% 1, 120 250 000 ml @ 20 mls/hr IV . Q24H [facility] Rx#:[id number] Intake, IV Titration 121.798 350 Amount Argatroban 250 mg In 250 Sodium Chloride 0.9% 250 ml @ 1 MCG/KG/MIN 7.482 mls/hr IV .Q24H [facility] Rx#: [id number] Piperacillin-Tazobactam 3 100 .375 gm In Sodium Chloride 0.9% 100 ml @ 25 mls/hr IVPB Q8HR [facility] Rx# :[id number] propofoL 1,000 mg In 121.798 Empty Bag 1 bag @ 15 MCG/ KG/MIN 10.41 mls/hr IV . Q9H37M [facility] Rx#:[id number] Tube Feeding 174 Other 100 Output: Urine 1760 1175 1405 Other: Voiding Method Indwelling Catheter Indwelling Catheter Indwelling Catheter ABP, PAP, CO, CI - Last Documented Arterial Blood Pressure 139/47 - Constitutional General appearance: Present: average body habitus - EENT Eyes: Present: EOMI - Respiratory Details: Nonlabored breathing - Cardiovascular Details: Warm and well-perfused - Gastrointestinal General gastrointestinal: Present: distended, soft - Integumentary Integumentary: Present: pale - Neurologic Neurologic: Present: CNII-XII intact. Absent: focal deficits - Labs CBC & Chem 7: 04/09/23 05:15 04/09/23 09:15 Labs: Abnormal Lab Results - Last 24 Hours (Table) 04/08/23 04/08/23 04/09/23 Range/Units 18:09 23:17 05:15 RBC 2.61 L (3.80-5.40) m/uL Hgb 7.7 L (11.4-16.0) gm/dL Hct 24.8 L (34.0-46.0) % MCHC 30.9 L (31.0-37.0) g/dL RDW 16.4 H (11.5-15.5) % APTT (22.0-30.0) sec Sodium (137-145) mmol/L Chloride (98-107) mmol/L Carbon Dioxide (22-30) mmol/L BUN (7-17) mg/dL Creatinine (0.52-1.04) mg/dL Glucose (74-99) mg/dL POC Glucose (mg/dL) 135 H 153 H (70-110) mg/dL Calcium (8.4-10.2) mg/dL 04/09/23 04/09/23 04/09/23 Range/Units 05:15 05:15 05:23 RBC (3.80-5.40) m/uL Hgb (11.4-16.0) gm/dL Hct (34.0-46.0) % MCHC (31.0-37.0) g/dL RDW (11.5-15.5) % APTT 66.0 H (22.0-30.0) sec Sodium 146 H (137-145) mmol/L Chloride 110 H (98-107) mmol/L Carbon Dioxide 33 H (22-30) mmol/L BUN 46 H (7-17) mg/dL Creatinine 1.10 H (0.52-1.04) mg/dL Glucose 133 H (74-99) mg/dL POC Glucose (mg/dL) 144 H (70-110) mg/dL Calcium 10.6 H (8.4-10.2) mg/dL 04/09/23 Range/Units 11:42 RBC (3.80-5.40) m/uL Hgb (11.4-16.0) gm/dL Hct (34.0-46.0) % MCHC (31.0-37.0) g/dL RDW (11.5-15.5) % APTT (22.0-30.0) sec Sodium (137-145) mmol/L Chloride (98-107) mmol/L Carbon Dioxide (22-30) mmol/L BUN (7-17) mg/dL Creatinine (0.52-1.04) mg/dL Glucose (74-99) mg/dL POC Glucose (mg/dL) 175 H (70-110) mg/dL Calcium (8.4-10.2) mg/dL Assessment and Plan (1) Fracture of distal end of right femur Current Visit: Yes Status: Acute Code(s): S72.401A - UNSP FRACTURE OF LOWER END OF RIGHT FEMUR, INIT FOR CLOS FX SNOMED Code(s): 267444008 (2) HIT (heparin-induced thrombocytopenia) Current Visit: Yes Status: Acute Code(s): D75.829 - HEPARIN-INDUCED THROMBOCYTOPENIA, UNSPECIFIED SNOMED Code(s): 92503987 Plan: HIT: -HIT antibody positive, 2.1, with 89% probability of JOEL positivity. Patient was started heparin for suspected PE s/p surgery and platelets were noted to decrease 5 days after initiation. Platelets were in the 250,000-400,000 during admission prior to drop. Platelets improving, 198,000 today. No reported episodes of bleeding -Decrease in platelets 5-10 days after initiation of heparin, with platelets in the 50-80K range is consistent with HIT -Serotinin release assay pending. DIC workup negative. -Heparin has been discontinued and patient was started on argatroban. Argatroban was discontinued today given she was extubated and is now on nasal cannula -She may transition to oral Eliquis 5 mg twice daily once she is allowed to take oral medications per primary team -Given she is now on nasal cannula with improvement in her kidney function, CT angiogram should be considered to confirm the presence of pulmonary/fat embolism -CBC daily. Will closely monitor platelets
[2023-04-09 17:39] LABS: Glucose,Whole Blood 154 mg/dL (70-110)
[2023-04-09] MEDS: OLANZapine 5 MG TAB PO SCH (20:45)
[2023-04-09] MEDS: SENNOSIDES-DOCUSATE SODIUM 1 EACH TAB PO SCH (20:45)
[2023-04-09] MEDS: FAMOTIDINE 20 MG/2 ML VIAL IV SCH (22:06)
[2023-04-09] MEDS: INSULIN DETEMIR (LEVEMIR) 100 UNIT/ML SYR SQ SCH (22:06)
[2023-04-09 23:20] LABS: Glucose,Whole Blood 156 mg/dL (70-110)
[2023-04-10] MEDS: POTASSIUM CHLORIDE 10 MEQ in WATER FOR INJECTION 1 100ML.BAG IVPB SCH (01:10)
[2023-04-10 04:29] LABS: Anisocytosis Slight; Basophils % (A) 1 %; Eosinophils # (A) 0.2 k/uL (0-0.7); Eosinophils % (A) 3 %; HCT 25.5 % (34.0-46.0); HGB 7.7 gm/dL (11.4-16.0); Hypochromasia Marked; Lymphocytes # (A) 1.2 k/uL (1.0-4.8); Lymphocytes % (A) 18 %; MCH 28.1 pg (25.0-35.0); MCV 93.7 fL (80.0-100.0); Monocytes # (A) 0.4 k/uL (0-1.0); Monocytes % (A) 7 %; Neutrophils # (A) 4.4 k/uL (1.3-7.7); Neutrophils % (A) 68 %; Platelet Count 234 k/uL (150-450); RBC 2.73 m/uL (3.80-5.40); RDW 16.1 % (11.5-15.5); WBC 6.5 k/uL (3.8-10.6)
[2023-04-10 04:48] LABS: Calcium 10.9 mg/dL (8.4-10.2); Magnesium 1.9 mg/dL (1.6-2.3); Potassium 4.2 mmol/L (3.5-5.1)
[2023-04-10] MEDS ORDERED: POTASSIUM CHLORIDE 10 MEQ in WATER FOR INJECTION 1 100ML.BAG IVPB STA (05:12)
[2023-04-10] MEDS ORDERED: MAGNESIUM SULFATE-D5W PMX 1 GM in DEXTROSE/WATER 1 100ML.BAG IVPB ONE (05:13)
[2023-04-10] MEDS: DEXTROSE 5% IN WATER 1,000 ML IV SCH (05:19)
[2023-04-10 05:43] LABS: Glucose,Whole Blood 161 mg/dL (70-110)
[2023-04-10] MEDS: INSULIN ASPART (NovoLOG) 100 UNIT/ML VIAL SQ SCH ×4 (06:03→23:52)
[2023-04-10] MEDS: FERROUS SULFATE 325 MG TAB PO SCH (08:01)
[2023-04-10] MEDS: METOPROLOL TARTRATE 25 MG TAB PO SCH ×2 (08:01→20:41)
[2023-04-10] MEDS: FLUoxetine HCL 20 MG CAP PO SCH (08:01)
[2023-04-10] MEDS: SENNOSIDES 8.6 MG TAB PO SCH ×2 (08:01→20:41)
[2023-04-10] MEDS: amLODIPine 10 MG TAB PO SCH (08:01)
[2023-04-10] MEDS: IPRATROPIUM-ALBUTEROL 3 ML NEB INHALATION SCH ×4 (08:10→20:01)
[2023-04-10] MEDS: FLUCONAZOLE ORAL SUSP 1,400 MG/35 ML BOTTLE PO SCH (09:19)
[2023-04-10] MEDS: FUROSEMIDE 10 MG/ML 4 ML VIAL IV SCH (09:23)
[2023-04-10] MEDS: NYSTATIN 100,000 UNIT/ML SUSP 500,000 UNIT/5 ML CUP PO SCH ×4 (09:23→22:40)
--- NOTE | 2023-04-10 09:49 | P.PN ---
Subjective Progress Note Date: 04/10/23 Principal diagnosis: Respiratory failure. Patient was reevaluated today on 04/01/2023, remains in the ICU, intubated and mechanically ventilated. She is now on assist control rate of 32 tidal volume of 450 FiO2 45% and PEEP of 5 ABG showed a pO2 of 65 pCO2 43 pH of 7.34 hence Fi O2 was increased to 50%. Chest x-ray showed atelectasis of the left lower lobe as the patient underwent bronchoscopy today, and suction some tenacious secretions in the left lower lobe bronchus. No evidence of any other significant findings. Fluid obtained was sent for diagnostic studies. Patient remains on propofol at 20 mcg/kg/m she is also on heparin drip for presumptive pulmonary embolism she is receiving insulin at 5.3 units per hour norepinephrine at low-dose, however this was discontinued once the patient woke up and evaluated off propofol. Patient remains on Rocephin empirically, cultures have been negative so far. Awaiting cultures from the BAL of the left lower lobe today. Obviously the patient is not quite ready for weaning off propofol she was noted to be tachypneic, tachycardic, and her blood pressure was as high as 200 systolic. Hence no further weaning to be done today. And her ventilator settings will be adjusted accordingly after bronchoscopy and BAL. Labs today were reviewed she has a bit of leukocytosis with WBC count of 16.9 her PTT is therapeutic at 45.7 and electrolytes are normal BUN is down to 46 creatinine is down to 1.20 will continue to monitor heparin for now and monitor her renal status, may eventually recommend CT angiogram of the chest to confirm whether the patient had thromboembolic disease/pulmonary embolism. Pro calcitonin level was 1.91, nonetheless patient remains on Rocephin. So far urine cultures and blood cultures and sputum cultures have been negative Patient was reevaluated today on 04/02/2023, remains in the ICU, intubated and mechanically ventilated. Patient had a bit of a setback last night, apparently there was some issues with the nasogastric tube, and it was felt that the patient may have aspirated some of her feedings from the nasogastric tube, hence this tube was removed and another tube was placed, follow-up chest x-ray showed adequate placement of the orogastric tube. In the meantime the patient desat urated and she required increase in her FiO2. She went up as high as 75% PEEP was increased to 8 and today I recommended increasing the PEEP to 12 and FiO2 down to 65%. And advised titration. Chest x-ray continues to show left lower lobe consolidation. Right side seems to be relatively clear. ABG this morning showed a pO2 of 84 pCO2 51 pH of 7.39. Patient is on propofol at 50 mcg/kg/m she is also on insulin at 4.25 units per hour vital HPI 29 mL/h she is off norepinephrine. Considering the aspiration situation I recommended that we change antibiotics to Zosyn cultures from the BAL of the left lower lobe are pending. Her vent settings changed to assist control rate of 32 tidal volume 450 FiO2 65% and PEEP of 12. WBC count is 10.6 hemoglobin is 7.2 PTT is 35.6, electrolytes are normal BUN is 53 creatinine 1.[address] angiogram of the chest in the next 24-48 hours in the meantime the patient seems to be tolerating heparin well Reevaluated today on 04/03/2023, patient remains in the ICU, intubated and mechanically ventilated. Her assist-control rate is 3 to tidal volume is 450 FiO2 60% and I cut down today to 50% PEEP is at 12. Patient remains on propofol at 50 mcg/kg/m remains on heparin drip, she is also on vital HPI 29 mL per hour. Antibiotics aguirre remains on Zosyn, cultures have been negative along. Even though washing from the BAL of the left lower lobe remains nondiagnostic. ABG showed a pO2 of 108 pCO2 42 pH of 7.45 hence FiO2 was cut down from 60% to 50%. Patient has been off sedation, she does not seem to be appropriate, she opens her eyes, but does not follow any instructions, she seems to be confused, and encephalopathic. Hence I initiated a neurological consultation, I believe the patient may have sustained fat embolism to explain her mental status. Would like to have a CT of the brain and CT of the chest, however the patient cannot lay flat, and she desaturates significantly upon laying flat, hence we'll hold on both for now. Her urine output is excellent and she was given more Lasix a day. Her pain seems to be under control and her blood pressure seems to respond well to Dilaudid every 2 hours as needed. Considering her ABG is marginal and considering that the patient is requiring relatively high PEEP I am not yet ready to extubate the patient also concerned about her mental status. WBC count is 10.9 hemoglobin is 7.4. PTT is 53.6. BUN is 56 creatinine is 1.07. Considering CT angiogram of the chest but because of her inability to lay flat and she desaturates easily him holding on the CT angiogram of the chest for now. Progress note dated 04/04/2023. 72-year-old female admitted back on March 26. She had a fall and fractured her right femur. She went to the operating room on March 28, and was intubated on that day. She was thought to possibly have pulmonary embolism, or fat embolism syndrome. Because of her instability, she's not been able to go for a CT angiogram. Currently, she remains on the ventilator, at volume assist control, rate 32, , tidal volume 450, FiO2 50%, and PEEP of 12. Blood gases show pO2 of 91, pCO2 44, and pH is 7.44. She remains on propofol at 75 mcg/kg/m, IV heparin, 0.9 at KVO, and vital, at 23 mL an hour, which is goal. The nurse has a number of issues today and redressed some all. For her blood pressure elevation, we start her on Cleveprex, to be titrated slowly systolic blood pressures less than 160 and the mean is less than 100. We had backed the patien t's Toprol-XL. In addition, because of fluid retention, we'll give the patient Lasix 60 mg IV push. We will dose daily based on her I's and O's. We also will discontinue heparin, and started on Lovenox 120 mg subcu every 12 hours. This is because her platelet count has declined to 80,000. In addition, we will order that heparin-induced thrombocytopenia antibodies. White count 10.5, hemoglobin 7.7, hematocrit 23.8, and platelet count 80,000. Sodium 142, potassium 4.9, chlorides 108, CO2 28, BUN 54, creatinine 0.99. Microbiologic sampling has been negative. Chest x-ray shows changes of COPD, with a small left-sided pleural effusion, and retrocardiac atelectasis or consolidation. Progress note dated 04/05/2023. 72-year-old female admitted back on March 26. She had a fall and a fractured right femur. She went to the operating room on March 28, and was intubated on that day. She was thought to have possibly a pulmonary embolism, or fat embolism syndrome. Because of instability, the patient has not been able to go down for a CT angiogram. She did have Dopplers of the lower extremity that were negative. She remains on mechanical ventilator. She is on the volume assist control, rate 32, tidal volume 450, FiO2 50%, and a PEEP of 12. Arterial blood gases show pO2 of 68, pCO2 45, and a pH is 7.45. The patient remains on Cleveprex at 4 mg an hour, propofol at 50 mcg/kg/m, saline at 10 mL an hour, and vital, at 29 mL an hour, which is goal. White count 11.2, hemoglobin 7.9, hematocrit 24.9, and platelet count 64,000. Sodium 139, potassium 4.1, chlorides 104, CO2 29, BUN 49, and creatinine 0.95. Glucose 168. Microbiologic data is negative. Chest x-rays consistent with mild fluid overload. There may be some basilar infiltrates or atelectasis. Progress note dated 04/06/2023. 72-year-old female admitted back on March 26. Should a fall with a fractured right femur. She went to the operating room 2 days later on the , to have the fracture repaired. She was placed on the ventilator at that time, and has been on the ventilator since. She was thought to possibly have either fat embolism syndrome, or a pulmonary embolism. She's been too unstable, to take down for a computed tomography scan of the chest, and now, her renal function is such that the dye, with injured her kidneys even further. Also, yesterday, because of dropping platelet counts, we ordered the heparin-induced thrombocytopenia panel, and it was positive, so I started the patient on A rgatroban, at 2.5 mcg/kg/m. The platelet counts actually a bit higher today. She remains on the ventilator, volume assist control, rate 32, out of I'm 450, FiO2 40%, and PEEP of 12. Blood gases show pO2 of 70, pCO2 43, and a pH is 7.49. His blood gases consistent with a very mild metabolic alkalosis. In addition to Argatroban, the patient is on propofol at 40 mcg/kg/m, and Cleveprex at 2 mg an hour, which may be discontinued. She's getting tube feedings with vital at 29 mL an hour, which is goal. Today, we will lessen her sedation, for a daily interruption of sedation. She is likely not ready for a spontaneous breathing trial. White count 12.1, hemoglobin 8.2, hematocrit 25.6, and p latelet count 78,000. Yesterday was 64,000. The patient's sodium is 141, potassium 4.1, chlorides 101, CO2 32, BUN 50, creatinine 1.11. Microbiologic studies are all negative thus far. Chest x-ray this morning shows atelectasis or infiltrate at the right lung base, and some consolidation or fluid at the left lung base. Progress note dated 04/07/2023. 72-year-old female admitted back on March 26, status post fall, with a fractured right femur. The patient went to the operating room for repair, 2 days later on the , and subsequently has been on mechanical ventilator, and has not been able to be weaned off. The patient has had a number of issues including elevated blood pressures, requiring multiple blood pressure medications including IV Cleveprex, the potential for the possibility of pulmonary embolism versus fat embolism syndrome, high oxygen and PEEP requirements, and more rec ently, the development of heparin-induced thrombocytopenia. Ventilator settings include assist control, rate 32, tidal volume 450, FiO2 40%, with 10. Blood gases show pO2 of 96, pCO2 38, and a pH is 7.53. The patient has a metabolic alkalosis, secondary to volume contraction, and mild hypokalemia. The patient's getting saline at 20 mL an hour, propofol at 20 mcg/kg/m, argatroban at 2.5 mcg/kg/m, and vital high protein at goal, which is 63 mL an hour. White count 9.6, hemoglobin 8, hematocrit 25.4, and platelet count is now up to 114,000. PTT is 68.9. Sodium 142, potassium 3.7, chlorides 104, CO2 33, BUN 53, and creatinine 1.06. The patient's chest x-ray shows improving pulmonary vascular congestion. Progress note dated 04/08/2023. 72-year-old female again seen in room 264. The patient remains on mechanical ventilation. We will attempt another daily interruption of sedation. Yesterday, with a DIS, she did very poorly. Her ventilator settings include the volume assist control, rate 32, tidal volume 450, FiO2 40% and PEEP of 10. Blood gases show pO2 of 80, pCO2 39, and a pH is 7.53. The patient has a mild/moderate metabolic alkalosis secondary to volume contraction, and hypokalemia. The patient's on propofol at 35 mcg/kg/m, 0.90 KVO, vital high protein at goal, which is 29 mL an hour, and argatroban, at 2.5 mcg/kg/m. White count 8.0, hemoglobin 7.9, hematocrit 25, and platelet count 163,000. PTT is 68.6. Sodium 144, potassium 3.4, chlorides 106, CO2 32, BUN 54, and creatinine 1.07. Microbiologic studies are negative. Chest x-ray shows evidence of left basilar consolidation, small left pleural effusion, as well as some patchy right-sided atelectasis or infiltrate. This patient has been intubated since March 28. Progress note dated 04/09/2023. 72-year-old female again seen in room 264. Yesterday, the patient was extubated. The patient did spend the night on BiPAP. Her BiPAP settings were 12/5 and 50%. The patient's currently on 12 L high flow oxygen. She's getting D5W at 30 mL an hour, which is replacing her saline. We also we'll DC her Ar gatroban. Yesterday, and a conversation with her daughter Jyoti, and thought this was a right time to get her extubated. The patient will not be reintubated should she fail. We can use all forms of oxygen therapy, including AIRVO, and BiPAP, but no intubation or mechanical ventilation. White count 6.6, hemoglobin 7.7, hematocrit 24.8, and platelet count was 198,000. PTT is 66. Sodium 146, potassium 4.1, chlorides 110, CO2 38, anion gap 3, BUN 46, and creatinine 1.10. Chest x-ray shows some mild bibasilar left greater than right, atelectasis or infiltrate. Microbiologic studies have been negative. Progress note dated 04/10/2023. The patient is seen today in room 264. She is on 10 L high flow oxygen. She did used to BiPAP last night, with settings of 12/5 and 50%. She's getting de xtrose, at 30 mL an hour. Much more awake and alert. She's not having any respiratory difficulty whatsoever. White count 6.5, hemoglobin 7.7, hematocrit 25.5, and platelet count 234,000. Sodium 147, potassium 4.2, chlorides 112, CO2 33, BUN 38, and creatinine 0.8. Calcium is 10.9. Objective - Vital Signs Vital signs: Vital Signs Temp 99.8 F H 04/10/23 08:00 Pulse 76 04/10/23 09:00 Resp 15 04/10/23 09:00 BP 160/63 04/10/23 05:00 Pulse Ox 96 04/10/23 09:00 FiO2 50 04/10/23 08:00 Intake & Output 04/09/23 04/10/23 04/10/23 18:59 06:59 18:59 Intake Total 520 830 120 Output Total 1999 1210 350 Balance -1480 -380 -230 Weight 120.6 kg Intake: IV 520 730 120 Dextrose 5% in Water 1, 120 330 120 000 ml @ 30 mls/hr IV . Q24H [facility] Rx#:[id number] Piperacillin-Tazobactam 3 100 .375 gm In Sodium Chloride 0.9% 100 ml @ 25 mls/hr IVPB Q8HR [facility] Rx# :[id number] Potassium Chloride 10 meq 200 In Water For Injection 1 100ml.bag @ 100 mls/hr IVPB ONCE [facility] Rx#: [id number] Potassium Chloride 10 meq 100 400 In Water For Injection 1 100ml.bag @ 100 mls/hr IVPB Q1H [facility] Rx#: [id number] Intake, IV Titration 100 Amount Magnesium Sulfate-D5w Pmx 100 1 gm In Dextrose/Water 1 100ml.bag @ 100 mls/hr IVPB ONCE ONE Rx#: [id number] Output: Urine 1999 1210 350 Other: Voiding Method Indwelling Catheter Indwelling Catheter Indwelling Catheter ABP, PAP, CO, CI - Last Documented Arterial Blood Pressure 155/55 - Exam No acute distress, awake, verbal, on 10 L high flow oxygen. Saturations are 96%. HEENT examination is grossly unremarkable. Neck supple. Full range of motion. No adenopathy thyromegaly or neck vein distention. Cardiovascular examination reveals regular rhythm rate. S1-S2 normal. No S3 or S4. No discernible murmur noted. Heart sounds are distant. Heart rate 76 bpm. Lungs reveal scattered bilateral rhonchi. No wheezes or crackles. Breath sounds equal. Saturation is 96 % Abdomen obese, with bowel sounds. Extremities are intact. No cyanosis or clubbing. There is diffuse edema and anasarca. Skin is without rash or lesion. Neurologic examination is brief but nonfocal. - Labs CBC & Chem 7: 04/10/23 04:20 04/10/23 04:20 Labs: Abnormal Lab Results - Last 24 Hours (Table) 04/09/23 04/09/23 04/09/23 Range/Units 11:42 17:37 23:18 RBC (3.80-5.40) m/uL Hgb (11.4-16.0) gm/dL Hct (34.0-46.0) % MCHC (31.0-37.0) g/dL RDW (11.5-15.5) % Sodium (137-145) mmol/L Chloride (98-107) mmol/L Carbon Dioxide (22-30) mmol/L BUN (7-17) mg/dL Glucose (74-99) mg/dL POC Glucose (mg/dL) 175 H 154 H 156 H (70-110) mg/dL Calcium (8.4-10.2) mg/dL 04/10/23 04/10/23 04/10/23 Range/Units 04:20 04:20 05:42 RBC 2.73 L (3.80-5.40) m/uL Hgb 7.7 L (11.4-16.0) gm/dL Hct 25.5 L (34.0-46.0) % MCHC 30.0 L (31.0-37.0) g/dL RDW 16.1 H (11.5-15.5) % Sodium 147 H (137-145) mmol/L Chloride 112 H (98-107) mmol/L Carbon Dioxide 33 H (22-30) mmol/L BUN 38 H (7-17) mg/dL Glucose 144 H (74-99) mg/dL POC Glucose (mg/dL) 161 H (70-110) mg/dL Calcium 10.9 H (8.4-10.2) mg/dL Assessment and Plan Assessment: Acute hypoxemic and hypercapnic respiratory failure, possibly secondary to pulmonary embolism, or fat embolism syndrome. Status post intubation and mechanical ventilation, beginning on March 28, with extubation on 04/08/2023. Postop day #13, status post repair of comminuted right femur fracture. 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 Hypotension, which may relate to PE, or FES, resolved. Acute kidney injury. Acute blood loss anemia. Lactic acidemia secondary to hypotension and hypoperfusion. Shock liver. Previous right total knee replacement. Morbid obesity. History of obstructive sleep apnea syndrome. Previous history of tobacco use. Left lower lobe atelectasis versus pneumonia. Status post bronchoscopy and BAL, postop day #9. Mental status changes, likely related to metabolic encephalopathy. Plan: Plan dated 04/04/2023. The patient is started back on Toprol, which she was taking as an outpatient, and we also added IV Cleveprex, is a dihydropyridine calcium channel alisha, for better blood pressure support. I put targets of systolics less than 160, and mean arterial pressures of less than 100 to the nurse. The patient will get Lasix 60 mg IV push once. We'll DC the IV heparin in favor of Lovenox 120 mg subcu every 12 hours. HIT antibodies are ordered. Labs, x-rays, medications are all reviewed. We will continue to follow make recommendations along the way. Prognosis is guarded. Plan dated 04/05/2023. The patient's blood pressure is under better control. The patient continues on Cleveprex, and propofol. I attempted to call the , Khoa, but he did not metal pickling equipment operator the phone. The nurse will restart the family. Labs, x-rays, medications are all reviewed. The patient was intubated on March 28. Because of relatively higher FiO2's, and PEEP levels, the patient is not a candidate for extubation. By the end of the week, the patient is to continue as a full code, we'll talk to the family about tracheostomy and PEG tube placement. Prognosis is certainly guarded. We will continue to follow the platelet count. She was switched from heparin to low molecular weight heparin yesterday. Plan dated 04/06/2023. Currently, the patient remains on propofol, and a small dose of Cleveprex. She's also getting tube feedings at goal. The heparin-induced thrombocytopenia panel came back positive, and the patient was started on Argatroban. The nurse will lessen the patient's sedation today, to evaluate her mental status. In a ddition, I had a long discussion with the daughter, Jyoti, and spoke to her about the various issues including the renal dysfunction, the pluses and minuses of doing a CT angiogram, and the problem with the platelets. In addition, we spoke about the possibility of tracheostomy and PEG tube placement. She mentioned that the patient would not once that. Because of last day and a half is been a bit better, will hold off for now. Labs, x-rays, and medications are reviewed. Prognosis is guarded. We will continue to follow make recommendations along the way. Plan dated 04/07/2023. The patient appears to be doing a bit better from the standpoint of her platelet count. I forcefully, we did a daily interruption of sedation today, the patient became very unstable, with lower saturations, and acute elevations in blood pressure. The patient was re-sedated. I will notify the family of this, we speak tomorrow. We will try to get the patient's potassium 4.5 mEq per liter. This will help the patient's metabolic alkalosis. Also, for additional blood pressure support, we added a clonidine patch, TTS #2. Labs, x-rays, medications are reviewed. Prognosis is guarded. 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 Plan dated 04/08/2023. The patient appears to be doing about the same. She remains on mechanical ventilator. She continues on propofol, and argatroban yesterday, the patient miserably failed her daily interruption of sedation. We'll attempt another daily interruption of sedation today. I will which out to her daughter Jyoti, for guidance. She remains on mechanical ventilator. Her blood gases show a primary metabolic alkalosis, secondary to volume contraction and hypokalemia. Labs, x- rays, and all medications are reviewed. Prognosis is certainly guarded. The patient may be a candidate for comfort care, if she does not do well today on her daily interruption of sedation. The patient's daughter stated that she would never want a tracheostomy tube and/or PEG tube placement. Plan dated 04/09/2023. The patient had very reasonable weaning parameters yesterday, with a very low rapid shallow breathing index, and a positive cuff leak. Therefore, we took the opportunity to extubate her. I did speak to her daughter Jyoti before hand, and she confirmed that that, the patient was not to be reintubated. The patient is currently on 12 L high flow oxygen. The patient's getting saline at KVO, to be converted to D5W at 30 mL an hour. The patient did use BiPAP at nighttime, with settings of 12/5, and 50%. The Argatroban was discontinued. Labs, x-rays, and medications are all reviewed. Zosyn can be discontinued. We will continue to follow make recommendations along the way. Prognosis is guarded. Plan dated 04/10/2023. The patient appears to be doing a bit better. She looks a bit brighter and stronger. She still on high flow oxygen at 10 L. Yesterday she was on 12 L. Labs, x-rays, and medications are all reviewed. We will continue to follow the patient and make recommendations along the way. Her IVs dextrose, running at 30 mL an hour. The patient is using BiPAP at nighttime, with settings of IPAP 12, EPAP 5, and 50%. Prognosis is certainly guarded. Even though she seems to be doing better, she certainly not out of the adam. Time with Patient: Greater than 30
--- NOTE | 2023-04-10 09:53 | P.PN ---
Subjective Progress Note Date: 04/10/23 Principal diagnosis: This is a 72-year-old female seen in consultation because of acute kidney injury, secondary to prerenal causes from post knee revision on 03/28/2023. Also known with chronic kidney disease secondary stage III with baseline creatinine of 1.2 and possibly diabetic nephropathy as well. Her creatinine peaked at 2.43 on 03/30/2023 and is improved to 0.8 as of this morning. She continues to be on oxygen, Lasix and she was on CPAP currently she is on nasal cannula oxygen. She was extubated before yesterday. She feels fairly well and has any complaints. She does have some mild edema of the arms and trace in her legs. Vital signs are stable blood pressure in the 150s, urine output is 3210 mL, on Lasix 40 every 12 IV Additionally she is known with hypercalcemia and was maintained on Sensipar. Objective - Vital Signs Vital signs: Vital Signs Temp 99.8 F H 04/10/23 08:00 Pulse 76 04/10/23 09:00 Resp 15 04/10/23 09:00 BP 160/63 04/10/23 05:00 Pulse Ox 96 04/10/23 09:00 FiO2 50 04/10/23 08:00 Intake & Output 04/09/23 04/10/23 04/10/23 18:59 06:59 18:59 Intake Total 520 830 120 Output Total 2000 1210 350 Balance -1480 -380 -230 Weight 120.6 kg Intake: IV 520 730 120 Dextrose 5% in Water 1, 120 330 120 000 ml @ 30 mls/hr IV . Q24H [facility] Rx#:[id number] Piperacillin-Tazobactam 3 100 .375 gm In Sodium Chloride 0.9% 100 ml @ 25 mls/hr IVPB Q8HR [facility] Rx# :[id number] Potassium Chloride 10 meq 200 In Water For Injection 1 100ml.bag @ 100 mls/hr IVPB ONCE [facility] Rx#: [id number] Potassium Chloride 10 meq 100 400 In Water For Injection 1 100ml.bag @ 100 mls/hr IVPB Q1H [facility] Rx#: [id number] Intake, IV Titration 100 Amount Magnesium Sulfate-D5w Pmx 100 1 gm In Dextrose/Water 1 100ml.bag @ 100 mls/hr IVPB ONCE [facility] Rx#: [id number] Output: Urine 2000 1210 350 Other: Voiding Method Indwelling Catheter Indwelling Catheter Indwelling Catheter ABP, PAP, CO, CI - Last Documented Arterial Blood Pressure 155/55 On examination is awake alert oriented comfortable currently on nasal cannula oxygen HEENT exam no JVP noted neck is supple no facial asymmetry Lungs are clear to auscultation fair air entry bilaterally Heart sounds unremarkable normal sinus rhythm Abdomen soft obese Extremity exam was trace edema in the legs and minimal and her arms. Ne urologically awake alert oriented - Labs CBC & Chem 7: 04/10/23 04:20 04/10/23 04:20 Labs: Abnormal Lab Results - Last 24 Hours (Table) 04/09/23 04/09/23 04/09/23 Range/Units 11:42 17:37 23:18 RBC (3.80-5.40) m/uL Hgb (11.4-16.0) gm/dL Hct (34.0-46.0) % MCHC (31.0-37.0) g/dL RDW (11.5-15.5) % Sodium (137-145) mmol/L Chloride (98-107) mmol/L Carbon Dioxide (22-30) mmol/L BUN (7-17) mg/dL Glucose (74-99) mg/dL POC Glucose (mg/dL) 175 H 154 H 156 H (70-110) mg/dL Calcium (8.4-10.2) mg/dL 04/10/23 04/10/23 04/10/23 Range/Units 04:20 04:20 05:42 RBC 2.73 L (3.80-5.40) m/uL Hgb 7.7 L (11.4-16.0) gm/dL Hct 25.5 L (34.0-46.0) % MCHC 30.0 L (31.0-37.0) g/dL RDW 16.1 H (11.5-15.5) % Sodium 147 H (137-145) mmol/L Chloride 112 H (98-107) mmol/L Carbon Dioxide 33 H (22-30) mmol/L BUN 38 H (7-17) mg/dL Glucose 144 H (74-99) mg/dL POC Glucose (mg/dL) 161 H (70-110) mg/dL Calcium 10.9 H (8.4-10.2) mg/dL Assessment and Plan Assessment: Impression 1. Acute kidney injury from prerenal factors from postop knee surgery creatinine improved from 2.43-0.8, on Lasix 40 every 12 IV with good urine output 2. Significant edema, significantly improved. Currently on Lasix, 40 mg IV daily . 3. Chronic kidney disease stage III diabetic nephropathy and nephrosclerosis with baseline creatinine 1.2. 4. Hypercalcemia maintained on Sensipar. Calcium is 10.9 5. Questionable pulmonary embolism and severe pulmonary hypertension with moderate to severe tricuspid regurgitation. 6. Status post knee surgery. 7. Failed swallow evaluation Recommendation 1. Maintain Lasix 40 mg daily IV as her urine output is satisfactory and it Edema to improve. 2. Resume cinacalcet 30 mg daily because of the hypercalcemia 3. Will watch her blood pressure is expected to improve.
[2023-04-10] MEDS: FLUCONAZOLE IN NACL,ISO-OSM 100 MG in SALINE 1 50ML.BAG IVPB SCH (10:10)
--- NOTE | 2023-04-10 11:01 | P.EN ---
Reviewed CBC revealing normal platelet count at 234 on today's labs. She has failed a swallow study and has not been able to start Eliquis. We will resume argatroban drip until Eliquis can be started to continue anticoagulation. CTA of the chest ordered to confirm the presence of PE/fat embolism, which is the suspected etiology for her acute hypoxic respiratory failure.
--- NOTE | 2023-04-10 11:38 | P.PN ---
Subjective Progress Note Date: 04/10/23 The patient is seen at bedside and per nurse is doing better. Is extubated and is not on any further sedation. Objective - Vital Signs Vital signs: Vital Signs Temp 99.8 F H 04/10/23 08:00 Pulse 70 04/10/23 11:27 Resp 14 04/10/23 10:00 BP 160/63 04/10/23 05:00 Pulse Ox 96 04/10/23 10:00 FiO2 50 04/10/23 08:00 Intake & Output 04/09/23 04/10/23 04/10/23 18:59 06:59 18:59 Intake Total 520 830 120 Output Total 1999 1210 350 Balance -1480 -380 -230 Weight 120.6 kg Intake: IV 520 730 120 Dextrose 5% in Water 1, 120 330 120 000 ml @ 30 mls/hr IV . Q24H [facility] Rx#:[id number] Piperacillin-Tazobactam 3 100 .375 gm In Sodium Chloride 0.9% 100 ml @ 25 mls/hr IVPB Q8HR [facility] Rx# :[id number] Potassium Chloride 10 meq 200 In Water For Injection 1 100ml.bag @ 100 mls/hr IVPB ONCE [facility] Rx#: [id number] Potassium Chloride 10 meq 100 400 In Water For Injection 1 100ml.bag @ 100 mls/hr IVPB Q1H [facility] Rx#: [id number] Intake, IV Titration 100 Amount Magnesium Sulfate-D5w Pmx 100 1 gm In Dextrose/Water 1 100ml.bag @ 100 mls/hr IVPB ONCE ONE Rx#: [id number] Output: Urine 1999 1210 350 Other: Voiding Method Indwelling Catheter Indwelling Catheter Indwelling Catheter ABP, PAP, CO, CI - Last Documented Arterial Blood Pressure 144/50 - Exam GENERAL: The patient is lying in bed and is not in acute distress. NEUROLOGICAL: Higher mental function: Awake alert oriented to self and stated she is in the hospital. She stated the year is 1922 and that she was at rehab. Patient is following simple commands. No aphasia and no neglect. Cranial nerves: Pupils are round equal reactive to light. Visual sanchez are full. No facial weakness. No dysarthria. 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 Is wiggling her toes bilaterally. Patient was unable to lift up bilateral upper extremity proximally above gravity and unable to lift up bilateral lower extremity. It appears the patient has generalized weakness. Cerebellum: Unable to assess. - Labs CBC & Chem 7: 04/10/23 04:20 04/10/23 04:20 Labs: Abnormal Lab Results - Last 24 Hours (Table) 04/09/23 04/09/23 04/09/23 Range/Units 11:42 17:37 23:18 RBC (3.80-5.40) m/uL Hgb (11.4-16.0) gm/dL Hct (34.0-46.0) % MCHC (31.0-37.0) g/dL RDW (11.5-15.5) % Sodium (137-145) mmol/L Chloride (98-107) mmol/L Carbon Dioxide (22-30) mmol/L BUN (7-17) mg/dL Glucose (74-99) mg/dL POC Glucose (mg/dL) 175 H 154 H 156 H (70-110) mg/dL Calcium (8.4-10.2) mg/dL 04/10/23 04/10/23 04/10/23 Range/Units 04:20 04:20 05:42 RBC 2.73 L (3.80-5.40) m/uL Hgb 7.7 L (11.4-16.0) gm/dL Hct 25.5 L (34.0-46.0) % MCHC 30.0 L (31.0-37.0) g/dL RDW 16.1 H (11.5-15.5) % Sodium 147 H (137-145) mmol/L Chloride 112 H (98-107) mmol/L Carbon Dioxide 33 H (22-30) mmol/L BUN 38 H (7-17) mg/dL Glucose 144 H (74-99) mg/dL POC Glucose (mg/dL) 161 H (70-110) mg/dL Calcium 10.9 H (8.4-10.2) mg/dL Assessment and Plan Assessment: * Altered mental status, likely due to toxic metabolic encephalopathy. As well as some component of encephalopathy due to sedation induced (Propofol and Cleviprex)---improving * Generalized weakness due to deconditioning from prolonged ICU stay. She was also intubated on ventilator and was on sedation. * Status post fall, with right femur fracture, status post surgery 03/28/2023 * Possible PE versus fat embolism, with subsequent significant hemodynamic instability, right heart strain * Acute severe blood loss anemia status post transfusion * Status post acute hypotensive shock from blood loss anemia * Acute kidney injury * COPD * Diabetes * Hyperlipidemia * Hypertension * Pneumonia * Obesity * X tobacco use * History of right knee arthroplasty in fall of 2021 Plan: * EEG: As abnormal. Tobacco slowing suggestive of mild to moderate encephalopathy. Otherwise there is no focal slowing, epileptiform discharges or seizure on the EEG. * Patient is extubated and mentation improving. She had generalized weakness. So I ordered CT head and Cervical spine. * Medical management as per IM, critical care and other specialties The plan is discussed with the patient's nurse. Dr. Michel will start neurology service tomorrow A.M. Time with Patient: Less than 30
[2023-04-10 11:50] LABS: Glucose,Whole Blood 176 mg/dL (70-110)
[2023-04-10] MEDS: ARGATROBAN 250 MG in SODIUM CHLORIDE 0.9% 250 ML IV SCH (11:50)
--- NOTE | 2023-04-10 13:13 | CT ---
EXAMINATION TYPE: CT brain cspine wo con CT DLP: 1524.7 mGycm, Automated exposure control for dose reduction was used. DATE OF EXAM: 04/10/2023 1:00 PM COMPARISON: 04/12/2016 CLINICAL INDICATION:Female, 72 years old with history of generalized weakness and confusion; WEAKNESS , CONFUSION TECHNIQUE: Brain: Multiple axial CT images of the brain were obtained without IV contrast. Cspine: Axial CT images from the skull base to the inferior aspect of T2 we obtained without intraven ous contrast. Coronal and sagittal reformatted images were also reviewed. FINDINGS: Brain: Extra-axial spaces: No abnormal extra-axial fluid collections. Ventricular system: Dilatation in proportion to cerebral atrophy. Cerebral parenchyma: Low-density area within the right caudate nucleus similar prior. Cerebral atroph y. No acute intraparenchymal hemorrhage or mass effect. The tom-white junction is well differentiat ed. Cerebellum: Unremarkable. Mass effect: No evidence of midline shift. Intracranial vasculature: unremarkable Soft tissues: Normal. Calvarium/osseous structures: No depressed skull fracture. Paranasal sinuses and mastoid air cells: Clear. Visualized orbits: Orbital contents are intact. Cervical spine: Motion limited exam. Fracture: None. Osseous structures: Multilevel degenerative disc disease changes with endplate spurring and disc oste ophyte complex's. Vertebral alignment: Within normal limits. Spinal canal/Neural Foramina: No evidence of significant spinal canal narrowing. No evidence for sign ificant neural foraminal stenosis. Neck soft tissues: Prevertebral soft tissues are within normal limits. Other: The airway is patent. The lung apices are clear. Atherosclerosis at the carotid bifurcations. IMPRESSION: 1. No acute intracranial process. 2. Remote right caudate nucleus injury. 3. Generalized cerebral atrophy changes. 4. Limited exam of the cervical spine secondary to motion. No evidence of cervical spine fracture. 5. Mild multilevel degenerative disc disease.
--- NOTE | 2023-04-10 13:23 | CT ---
EXAMINATION TYPE: CT angio chest CT DLP: 866.8 mGycm, Automated exposure control for dose reduction was used. DATE OF EXAM: 04/10/2023 1:07 PM COMPARISON: CT Angio 07/30/2016 CLINICAL INDICATION:Female, 72 years old with history of rule out pe; R/O pe TECHNIQUE/CONTRAST: CTA scan of the thorax is performed with IV Contrast, patient injected with 100 mL of Isovue 370, pul monary embolism protocol. MIP images are created and reviewed these [email or web address] FINDINGS: Motion limited exam. Pulmonary Artery: Motion limited exam there is felt to be lobar pulmonary artery filling defect withi n the right upper lobe pulmonary artery series 4022 image 45. Filling defect is nonocclusive. Additio nal right upper lobe pulmonary embolus seen on series 4022 image 46. There is no evidence of right heart strain. The pulmonary trunk is dilated measuring up to 3.4 cm. e Lungs/Pleura: Lung volumes with streaky atelectasis scattered throughout the parenchyma. There is a g roundglass opacity within the right lung. Mild intralobular septal thickening. No evidence of focal c onsolidation, pleural effusion or pneumothorax. Airway: Large airways are patent. Heart: The heart is mildly enlarged for size. Coronary artery calcifications. Vasculature: No evidence of aortic aneurysm. Central venous catheter with tip terminating in the supe rior cavoatrial junction. Mediastinum: No gross evidence of adenopathy. Musculoskeletal: No acute osseous abnormalities Soft Tissues: Unremarkable. Lower neck: No significant findings. Upper Abdomen: No significant findings. IMPRESSION: 1. Bilateral nonocclusive upper lobe pulmonary emboli. 2. Cardiomegaly, pulmonary hypertension with pulmonary vascular congestion correlate for congestive h eart failure.
[2023-04-10] MEDS ORDERED: DEXTROSE 5% IN WATER 1,000 ML IV ONE (14:51)
[2023-04-10 17:37] LABS: Glucose,Whole Blood 186 mg/dL (70-110)
[2023-04-10] MEDS: INSULIN DETEMIR (LEVEMIR) 100 UNIT/ML SYR SQ SCH (20:08)
[2023-04-10] MEDS: FAMOTIDINE 20 MG/2 ML VIAL IV SCH (20:40)
[2023-04-10] MEDS: SENNOSIDES-DOCUSATE SODIUM 1 EACH TAB PO SCH (20:41)
[2023-04-10] MEDS: OLANZapine 5 MG TAB PO SCH (20:41)
[2023-04-10 23:40] LABS: Glucose,Whole Blood 171 mg/dL (70-110)
[2023-04-11] MEDS: ARGATROBAN 250 MG in SODIUM CHLORIDE 0.9% 250 ML IV SCH ×3 (03:31→20:00)
--- NOTE | 2023-04-11 04:10 | P.PN ---
Subjective Progress Note Date: 04/09/23 History of presenting complaint: very pleasant 72-year-old patient of Dr. Persaud. Chronic stable medical conditions include diabetes, hyperlipidemia, hypertension, primary osteoarthritis, peripheral neuropathy, bilateral breast cancer with bilateral mastectomy, IBS, diverticulosis, chronic low back arthritis. Anxiety depression. Diagnosis of ulcerative colitis for about 15 years. On Asacol 800 mg 3 times a day. In November 2020 did undergo coloscopy by Dr. Moreno. Normal- appearing colon. Patient does follow with Dr. Angi Stallings. On an average has about 10 bowel movements a day. Present for years. Patient today was at the [facility]. Troponin went and fell down. Computed tomography scan showing a comminuted fracture distal metaphyseal femur adjacent to the knee processes. Some external rotation. Right lower extremity - brace. Patient's able to get about the house.. No chest pain or palpitation. March 27: Reclining bed. Pain control. Oral intake fair. Pending surgery tomorrow. Discussed with patient has would've the bedside. March 28: Patient seen by me this morning prior to surgery. In bed. Comfortable. Nothing by mouth. Pending surgery this afternoon. March 29: ICU. Yesterday patient underwent right revision total knee replacement the distal femoral replacement age for periprosthetic distal femur fracture. Estimated blood loss was about 600 mL. In the perioperative area patient blood pressure was running low. Patient was transferred to the ICU. Patient did receive 2 units of blood yesterday. Today patient is intubated. FiO2 85% and a PEEP of 10. Drips include we will affect, propofol, Nimbex. Patient started IV heparin for underlying suspicion of pulmonary embolism. Accu-Cheks running high has put on insulin drip. Oral gastric tube. Patient's and 2 daughters at the bedside. Discussed at length. Patient renal function also worsened. Hyperkalemia. Given bicarbonate. Being followed by billet examiner, nephrology. Another unit of blood pending. Hemoglobin this morning 6.7. Patient has increased right-sided heart pressures suspicious for therefore PE/fat embolism. March 30: ICU. Spiked a fever. Advair 250/50 5 and a PEEP of 8. On the ventilator. Sinus rhythm. Drips include Nimbex, propofol, IV heparin, IV insulin, IV norepinephrine. Right leg in a brace. IV ceftriaxone. March 31: ICU. On the ventilator. FiO2 45 PEEP of 5. 2 feeding at 30 mL an hour. Telemetry: Sinus rhythm. Drips include insulin, propofol, epinephrine, IV heparin. IV insulin. Cultures have been negative up to now. Remains in empirically on IV ceftriaxone. April 01: ICU. Patient underwent bronchoscopy by Dr. Babcock. 4 atelectasis on the chest x-ray. No rashes thick secretions removed from the left lower lobe. Likely mucous plugging. Currently on the ventilator with FiO2 100 a PEEP of 8. Sinus rhythm on the telemetry. Drips include IV levo fed, propofol, IV heparin, insulin. Having white secretions. IV ceftriaxone. Discussed with the [employer] out of the bedside. Patient still remains critical. April 02: ICU. Overnight, last admin the nurse give medications through the OG tube medications came out through the mouth. 2 feeding was cutback. Started on a smaller rate. Remains on the ventilator. [place] to 65 and a PEEP of 12. Levo fed was discontinued yesterday afternoon. On propofol. IV heparin, IV insulin. April 03: ICU. Remains on the ventilator. FiO2 65 PEEP of 12. Patient is off propofol. Still remained lethargic. Neurology consulted. Also includes IV heparin drip. Family including father and 2 daughters at the bedside. G-tube feeding at goal. Discuss CODE STATUS with the family. Nurse called back later that they have decided to make the patient no code April 04: ICU. On the ventilator. FiO2 50 to PEEP of 12. Having a lot of thick and clear secretions through the ET tube. Remains lethargic. Code EEG done today. On cleviprex, propofol, IV heparin changed over to Lovenox subcu twice a day. and the daughter the bedside. April 05: ICU. Ventilator. FiO2 40 PEEP of 12. Drips include cleviprex and propofol. Secretions through the G-tube. Getting 2 feeding. Discussed with the 2 daughters at the bedside. HEENT negative for seizure activity. Shows encephalopathy. Patient positive for heparin-induced platelet antibody. Consult hematology. April 06: ICU. Ventilator. FiO2 40 and a PEEP of 12. Sliding some secretions. 2 feeding at 29 mL an hour. Getting IV Lasix 40 mg twice a day. On propofol 35. Had a small BM yesterday. Patient is started on argatroban yesterday. Taken off cleviprex April 07: ICU. Ventilator. FiO2 40 and a PEEP of 10. Tube feeding continues. On IV argatroban. IV Zosyn. IV propofol. Dr. Levine spoke to the family about possible tracheostomy. and daughter the bedside. Care was discussed. I trying to make a decision. April 08: ICU. Ventilator. FiO2 40 and a PEEP of 10. On tube feeding. IV argatroban. IV Zosyn. IV propofol. Patient eyes open. Gives impression that she can follow. No limb movements. 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 Edema present. Sinus rhythm. Change Catapres patch over to.2 mg 3 times a day through OG tube 2022 Patient is lying in the bed. Currently in the MICU. Was extubated yesterday. No complaints of chest pain or worsening shortness of breath. Patient is on oxygen via nasal cannula. Patient has been afebrile. Otherwise patient was able to eat breakfast but later patient was having difficulty swallowing. Failed bedside swallow evaluation. [employer] MACHINE OFFBEARER was consulted. Otherwise patient is being continued on Lasix 40 mg daily. Laboratory data showed WBC 6.6 hemoglobin 7.7 and platelets 498 Sodium 146 potassium 4.1 chloride 110 bicarb is 33 BUN 46 and creatinine 1.1. Calcium 10.6. current Medications reviewed Past medical history to include: Diabetes mellitus type 2, hyperlipidemia, hypertension, osteoarthritis, peripheral neuropathy, bilateral breast cancer with bilateral mastectomies, ulcerative colitis-colonoscopy has shown normal colon and biopsy was negative., diverticulosis, chronic low back pain and arthritis, anxiety depression. COVID- 19 Social history: . Smoked for 41 years stopped in 2005. No alcohol Physical examination: VITAL SIGNS: 88.8, 85, 32, 161/53, 95% on the ventilator GENERAL: , intubated. OG tube. Eyes open. Acknowledges with facial movements. EYES: Pupils equal. Conjunctiva normal. HEENT: External appearance of nose and ears normal, oral cavity OG tube NECK: JVD unable to assess; masses not palpable. HEART: First and second heart sounds are normal; edema present LUNGS: Respiratory rate increased, decreased breath sounds ABDOMEN: Soft, nontender, liver spleen not palpable, no masses palpable. PSYCH: Unable to assess MUSCULAR skeletal: Evidence of OA especially in the hands . Right lower extremity in a brace INVESTIGATIONS, reviewed in the clinical context: April 08: WBC 8 hemoglobin 7.9 platelets 163 potassium 3.4 BUN 54 creatinine 1.07 April 07: WBC 9.6 hemoglobin 8 platelets 114 potassium 3.7 BUN 53 creatinine 1.06 Heparin-induced platelet antibody: 2.1 April 05: WBC 11.2 hemoglobin 7.9 platelets 64 potassium 4.1 BUN 49 creatinine 0.95 April 04: White count 10.5 hemoglobin 7.7 platelets 80 potassium 4.9 creatinine 0.99 March 30: White count 15.4 hemoglobin 8.8 platelets 298 potassium 3.6 BUN 53 creatinine 1.99 AST 1842 ALT 208 2-D echocardiogram: Moderate increased LVH. EF 50-55%. Severe right ventricle dilatation generalized right ventricle hypokinesis. Severe pulmonary hy pertension. Moderate to severe tricuspid regurgitation. Ultrasound venous Doppler lower extremity: Limited views. No obvious DVT. Ultrasound kidney: Right kidney: Mild renal cortical thinning. Left kidney obscured. March 29: White count 20.6 hemoglobin 6.7 platelets 300 ABG: PH 7.13 pCO2 62. Potassium 5.1 BUN 40 creatinine 1.91 blood glucose 372 UA: Noted March 28: White count 9.1 hemoglobin 9.5 potassium 4.4 BUN 36 creatinine 1.37 White count 12.2 hemoglobin 11.5 platelets 510 sodium 140 potassium 4 BUN 34 creatinine 1.9 EKG tracing personally reviewed by me-normal sinus rhythm. Chest x-ray film personally reviewed by me-: Portable. No obvious infiltrate Knee x-ray/femur CT: Comminuted fracture distal metadiaphyseal femur adjacent to a knee processes. Displacement of the distal fracture fragment from the proximal fracture Assessment and plan: -Fall leading to acute Comminuted fracture distal metadiaphyseal femur adjacent to a knee processes. Displacement of the distal fracture fragment from the proximal fracture. March 28:right revision total knee replacement the distal femoral replacement age for periprosthetic distal femur fracture. By Dr. Stack. EBL 600 mL -Metabolic/anoxic encephalopathy. Improvement Neurology consulted. EEG negative for seizure -Mucous plugging with left lower lobe atelectasis. Status post bronchoscopy and removal of sticks tenacious secretions. 04/01/2023 -Acute severe blood loss anemia from surgery Patient received 3 units of blood -Hyperkalemia from acute kidney injury: Better -Thrombocytopenia. Positive heparin-induced antibody IV Argotroban -Acute cor pulmonale with underlying suspicious for fat embolism/pulmonary embolism with acute right ventricle dilatation and moderate to severe TR. -Acute hypotensive shock from blood loss anemia.: Better Receive 3 units of blood. IV levo fed discontinued -Acute kidney injury likely cardiorenal syndrome/ATN. From hypotension and anemia.: Better Follow with nephrology. Admission creatinine was 1.29. Peaked at 2.43. 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 / Amaryl. Levemir to 52 units at night -Hyperlipidemia Lipitor, TriCor -Anxiety not otherwise specified Klonopin 0.5 mg 3 times a day -Depression Zyprexa 5 mg daily at bedtime, Prozac 40 mg a day -Hyperuricemia Allopurinol -Essential hypertension, -Acute hepatitis likely ischemic, improvement -Primary osteoarthritis Pain medications when necessary -Chronic kidney disease stage III from diabetic nephropathy and hypertensive nephrosclerosis Follow renal function -DO NOT RESUSCITATE Continue current treatment plan. Follow-up in billet examiner. No family at the bedside. Objective - Vital Signs Vital signs: Vital Signs Temp 100 F H 04/09/23 20:00 Pulse 81 04/09/23 21:00 Resp 9 L 04/09/23 21:00 BP 160/63 04/09/23 12:00 Pulse Ox 94 L 04/09/23 21:00 FiO2 50 04/09/23 08:07 Intake & Output 04/09/23 04/09/23 04/10/23 06:59 18:59 06:59 Intake Total 900 520 160 Output Total 1175 2000 350 Balance -275 -1480 -190 Weight 121.6 kg Intake: IV 550 520 160 Dextrose 5% in Water 1, 120 60 000 ml @ 30 mls/hr IV . Q24H [facility] Rx#:[id number] Piperacillin-Tazobactam 3 100 .375 gm In Sodium Chloride 0.9% 100 ml @ 25 mls/hr IVPB Q8HR [facility] Rx# :[id number] Potassium Chloride 10 meq 300 200 In Water For Injection 1 100ml.bag @ 100 mls/hr IVPB ONCE STA Rx#: [id number] Potassium Chloride 10 meq 100 100 In Water For Injection 1 100ml.bag @ 100 mls/hr IVPB Q1H [facility] Rx#: [id number] Sodium Chloride 0.9% 1, 250 000 ml @ 20 mls/hr IV . Q24H [facility] Rx#:[id number] Intake, IV Titration 350 Amount Argatroban 250 mg In 250 Sodium Chloride 0.9% 250 ml @ 1 MCG/KG/MIN 7.482 mls/hr IV .Q24H [facility] Rx#: [id number] Piperacillin-Tazobactam 3 100 .375 gm In Sodium Chloride 0.9% 100 ml @ 25 mls/hr IVPB Q8HR [facility] Rx# :[id number] Output: Urine 1175 2000 350 Other: Voiding Method Indwelling Catheter Indwelling Catheter Indwelling Catheter ABP, PAP, CO, CI - Last Documented Arterial Blood Pressure 147/49 - Labs CBC & Chem 7: 04/10/23 04:20 04/10/23 04:20 Labs: Abnormal Lab Results - Last 24 Hours (Table) 04/08/23 04/09/23 04/09/23 Range/Units 23:17 05:15 05:15 RBC 2.61 L (3.80-5.40) m/uL Hgb 7.7 L (11.4-16.0) gm/dL Hct 24.8 L (34.0-46.0) % MCHC 30.9 L (31.0-37.0) g/dL RDW 16.4 H (11.5-15.5) % APTT (22.0-30.0) sec Sodium 146 H (137-145) mmol/L Chloride 110 H (98-107) mmol/L Carbon Dioxide 33 H (22-30) mmol/L BUN 46 H (7-17) mg/dL Creatinine 1.10 H (0.52-1.04) mg/dL Glucose 133 H (74-99) mg/dL POC Glucose (mg/dL) 153 H (70-110) mg/dL Calcium 10.6 H (8.4-10.2) mg/dL 04/09/23 04/09/23 04/09/23 Range/Units 05:15 05:23 11:42 RBC (3.80-5.40) m/uL Hgb (11.4-16.0) gm/dL Hct (34.0-46.0) % MCHC (31.0-37.0) g/dL RDW (11.5-15.5) % APTT 66.0 H (22.0-30.0) sec Sodium (137-145) mmol/L Chloride (98-107) mmol/L Carbon Dioxide (22-30) mmol/L BUN (7-17) mg/dL Creatinine (0.52-1.04) mg/dL Glucose (74-99) mg/dL POC Glucose (mg/dL) 144 H 175 H (70-110) mg/dL Calcium (8.4-10.2) mg/dL 04/09/23 Range/Units 17:37 RBC (3.80-5.40) m/uL Hgb (11.4-16.0) gm/dL Hct (34.0-46.0) % MCHC (31.0-37.0) g/dL RDW (11.5-15.5) % APTT (22.0-30.0) sec Sodium (137-145) mmol/L Chloride (98-107) mmol/L Carbon Dioxide (22-30) mmol/L BUN (7-17) mg/dL Creatinine (0.52-1.04) mg/dL Glucose (74-99) mg/dL POC Glucose (mg/dL) 154 H (70-110) mg/dL Calcium (8.4-10.2) mg/dL
--- NOTE | 2023-04-11 04:10 | P.PN ---
Subjective Progress Note Date: 04/10/23 History of presenting complaint: very pleasant 72-year-old patient of Dr. Persaud. Chronic stable medical conditions include diabetes, hyperlipidemia, hypertension, primary osteoarthritis, peripheral neuropathy, bilateral breast cancer with bilateral mastectomy, IBS, diverticulosis, chronic low back arthritis. Anxiety depression. Diagnosis of ulcerative colitis for about 15 years. On Asacol 800 mg 3 times a day. In November 2020 did undergo coloscopy by Dr. Moreno. Normal- appearing colon. Patient does follow with Dr. Angi Stallings. On an average has about 10 bowel movements a day. Present for years. Patient today was at the [facility]. Troponin went and fell down. Computed tomography scan showing a comminuted fracture distal metaphyseal femur adjacent to the knee processes. Some external rotation. Right lower extremity - brace. Patient's able to get about the house.. No chest pain or palpitation. March 27: Reclining bed. Pain control. Oral intake fair. Pending surgery tomorrow. Discussed with patient has would've the bedside. March 28: Patient seen by me this morning prior to surgery. In bed. Comfortable. Nothing by mouth. Pending surgery this afternoon. March 29: ICU. Yesterday patient underwent right revision total knee replacement the distal femoral replacement age for periprosthetic distal femur fracture. Estimated blood loss was about 600 mL. In the perioperative area patient blood pressure was running low. Patient was transferred to the ICU. Patient did receive 2 units of blood yesterday. Today patient is intubated. FiO2 85% and a PEEP of 10. Drips include we will affect, propofol, Nimbex. Patient started IV heparin for underlying suspicion of pulmonary embolism. Accu-Cheks running high has put on insulin drip. Oral gastric tube. Patient's and 2 daughters at the bedside. Discussed at length. Patient renal function also worsened. Hyperkalemia. Given bicarbonate. Being followed by steam shovel operator, nephrology. Another unit of blood pending. Hemoglobin this morning 6.7. Patient has increased right-sided heart pressures suspicious for therefore PE/fat embolism. March 30: ICU. Spiked a fever. Advair 250/50 5 and a PEEP of 8. On the ventilator. Sinus rhythm. Drips include Nimbex, propofol, IV heparin, IV insulin, IV norepinephrine. Right leg in a brace. IV ceftriaxone. March 31: ICU. On the ventilator. FiO2 45 PEEP of 5. 2 feeding at 30 mL an hour. Telemetry: Sinus rhythm. Drips include insulin, propofol, epinephrine, IV heparin. IV insulin. Cultures have been negative up to now. Remains in empirically on IV ceftriaxone. April 01: ICU. Patient underwent bronchoscopy by Dr. Babcock. 4 atelectasis on the chest x-ray. No rashes thick secretions removed from the left lower lobe. Likely mucous plugging. Currently on the ventilator with FiO2 100 a PEEP of 8. Sinus rhythm on the telemetry. Drips include IV levo fed, propofol, IV heparin, insulin. Having white secretions. IV ceftriaxone. Discussed with the [employer] out of the bedside. Patient still remains critical. April 02: ICU. Overnight, last admin the nurse give medications through the OG tube medications came out through the mouth. 2 feeding was cutback. Started on a smaller rate. Remains on the ventilator. [place] to 65 and a PEEP of 12. Levo fed was discontinued yesterday afternoon. On propofol. IV heparin, IV insulin. April 03: ICU. Remains on the ventilator. FiO2 65 PEEP of 12. Patient is off propofol. Still remained lethargic. Neurology consulted. Also includes IV heparin drip. Family including father and 2 daughters at the bedside. G-tube feeding at goal. Discuss CODE STATUS with the family. Nurse called back later that they have decided to make the patient no code April 04: ICU. On the ventilator. FiO2 50 to PEEP of 12. Having a lot of thick and clear secretions through the ET tube. Remains lethargic. Code EEG done today. On cleviprex, propofol, IV heparin changed over to Lovenox subcu twice a day. and the daughter the bedside. April 05: ICU. Ventilator. FiO2 40 PEEP of 12. Drips include cleviprex and propofol. Secretions through the G-tube. Getting 2 feeding. Discussed with the 2 daughters at the bedside. HEENT negative for seizure activity. Shows encephalopathy. Patient positive for heparin-induced platelet antibody. Consult hematology. April 06: ICU. Ventilator. FiO2 40 and a PEEP of 12. Sliding some secretions. 2 feeding at 29 mL an hour. Getting IV Lasix 40 mg twice a day. On propofol 35. Had a small BM yesterday. Patient is started on argatroban yesterday. Taken off cleviprex April 07: ICU. Ventilator. FiO2 40 and a PEEP of 10. Tube feeding continues. On IV argatroban. IV Zosyn. IV propofol. Dr. Levine spoke to the family about possible tracheostomy. and daughter the bedside. Care was discussed. I trying to make a decision. April 08: ICU. Ventilator. FiO2 40 and a PEEP of 10. On tube feeding. IV argatroban. IV Zosyn. IV propofol. Patient eyes open. Gives impression that she can follow. No limb movements. 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 Edema present. Sinus rhythm. Change Catapres patch over to.2 mg 3 times a day through OG tube 2022 Patient is lying in the bed. Currently in the MICU. Was extubated yesterday. No complaints of chest pain or worsening shortness of breath. Patient is on oxygen via nasal cannula. Patient has been afebrile. Otherwise patient was able to eat breakfast but later patient was having difficulty swallowing. Failed bedside swallow evaluation. RADIO MECHANIC APPRENTICE was consulted. Otherwise patient is being continued on Lasix 40 mg daily. Laboratory data showed WBC 6.6 hemoglobin 7.7 and platelets 498 Sodium 146 potassium 4.1 chloride 110 bicarb is 33 BUN 46 and creatinine 1.1. Calcium 10.6. 04/10/2023 Patient is currently sitting in the bed. Awake alert and oriented 1-2. No complaints of chest pain or worsening shortness of breath. Patient is on oxygen via nasal cannula. Patient has not CTA chest done today showed bilateral nonocclusive upper lobe pulmonary emboli., Cardiomegaly pulmonary hypertension and pulmonary vascular congestion correlate for CHF. Patient remains on Lasix 40 mg daily. Patient was also started on anticoagulation with argatroban. Oncology and critical care team is on board. Laboratory data showed WBC 6.5 hemoglobin 7.7 and platelets 234 Sodium 147 potassium 4.2 chloride 112 bicarb is 33 BUN 38 and creatinine 0.8. Patient was given D5 water today. current Medications reviewed Past medical history to include: Diabetes mellitus type 2, hyperlipidemia, hypertension, osteoarthritis, peripheral neuropathy, bilateral breast cancer with bilateral mastectomies, ulcerative colitis-colonoscopy has shown normal colon and biopsy was negative., diverticulosis, chronic low back pain and arthritis, anxiety depression. COVID- 19 Social history: . Smoked for 41 years stopped in 2005. No alcohol Physical examination: VITAL SIGNS: 88.8, 85, 32, 161/53, 95% on the ventilator GENERAL: , intubated. OG tube. Eyes open. Acknowledges with facial movements. EYES: Pupils equal. Conjunctiva normal. HEENT: External appearance of nose and ears normal, oral cavity OG tube NECK: JVD unable to assess; masses not palpable. HEART: First and second heart sounds are normal; edema present LUNGS: Respiratory rate increased, decreased breath sounds ABDOMEN: Soft, nontender, liver spleen not palpable, no masses palpable. PSYCH: Unable to assess MUSCULAR skeletal: Evidence of OA especially in the hands . Right lower e xtremity in a brace INVESTIGATIONS, reviewed in the clinical context: April 08: WBC 8 hemoglobin 7.9 platelets 163 potassium 3.4 BUN 54 creatinine 1.07 April 07: WBC 9.6 hemoglobin 8 platelets 114 potassium 3.7 BUN 53 creatinine 1.06 Heparin-induced platelet antibody: 2.1 April 05: WBC 11.2 hemoglobin 7.9 platelets 64 potassium 4.1 BUN 49 creatinine 0.95 April 04: White count 10.5 hemoglobin 7.7 platelets 80 potassium 4.9 creatinine 0.99 March 30: White count 15.4 hemoglobin 8.8 platelets 298 potassium 3.6 BUN 53 creatinine 1.99 AST 1842 ALT 208 2-D echocardiogram: Moderate increased LVH. EF 50-55%. Severe right ventricle dilatation generalized right ventricle hypokinesis. Severe pulmonary hyper tension. Moderate to severe tricuspid regurgitation. Ultrasound venous Doppler lower extremity: Limited views. No obvious DVT. Ultrasound kidney: Right kidney: Mild renal cortical thinning. Left kidney obscured. March 29: White count 20.6 hemoglobin 6.7 platelets 300 ABG: PH 7.13 pCO2 62. Potassium 5.1 BUN 40 creatinine 1.91 blood glucose 372 UA: Noted March 28: White count 9.1 hemoglobin 9.5 potassium 4.4 BUN 36 creatinine 1.37 White count 12.2 hemoglobin 11.5 platelets 510 sodium 140 potassium 4 BUN 34 creatinine 1.9 EKG tracing personally reviewed by me-normal sinus rhythm. Chest x-ray film personally reviewed by me-: Portable. No obvious infiltrate Knee x-ray/femur CT: Comminuted fracture distal metadiaphyseal femur adjacent to a knee processes. Displacement of the distal fracture fragment from the proximal fracture Assessment and plan: -Fall leading to acute Comminuted fracture distal metadiaphyseal femur adjacent to a knee processes. Displacement of the distal fracture fragment from the proximal fracture. March 28:right revision total knee replacement the distal femoral replacement age for periprosthetic distal femur fracture. By Dr. Stack. EBL 600 mL -Metabolic/anoxic encephalopathy. Improvement Neurology consulted. EEG negative for seizure -Mucous plugging with left lower lobe atelectasis. Status post bronchoscopy and removal of sticks tenacious secretions. 04/01/2023 -Acute severe blood loss anemia from surgery Patient received 3 units of blood -Hyperkalemia from acute kidney injury: Better -Thrombocytopenia. Positive heparin-induced antibody IV Argotroban -Acute cor pulmonale with underlying suspicious for fat embolism/pulmonary embolism with acute right ventricle dilatation and moderate to severe TR. -Acute hypotensive shock from blood loss anemia.: Better Receive 3 units of blood. IV levo fed discontinued -Acute kidney injury likely cardiorenal syndrome/ATN. From hypotension and anemia.: Better Follow with nephrology. Admission creatinine was 1.29. Peaked at 2.43. 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 / Amaryl. Levemir to 52 units at night -Hyperlipidemia Lipitor, TriCor -Anxiety not otherwise specified Klonopin 0.5 mg 3 times a day -Depression Zyprexa 5 mg daily at bedtime, Prozac 40 mg a day -Hyperuricemia Allopurinol -Essential hypertension, -Acute hepatitis likely ischemic, improvement -Primary osteoarthritis Pain medications when necessary -Chronic kidney disease stage III from diabetic nephropathy and hypertensive nephrosclerosis Follow renal function -DO NOT RESUSCITATE Continue current treatment plan. Follow-up in steam shovel operator. No family at the bedside. Objective - Vital Signs Vital signs: Vital Signs Temp 1002 F H 04/10/23 20:00 Pulse 68 04/10/23 21:00 Resp 21 04/10/23 21:00 BP 160/63 04/09/23 12:00 Pulse Ox 96 04/10/23 21:00 FiO2 50 04/10/23 08:00 Intake & Output 04/10/23 04/10/23 04/11/23 06:59 18:59 06:59 Intake Total 830 927.011 109.774 Output Total 1210 2285 165 Balance -380 -1357.989 -55.226 Weight 120.6 kg 120.6 kg Intake: IV 730 825 63 Dextrose 5% in Water 1, 330 795 60 000 ml @ 30 mls/hr IV . Q24H [facility] Rx#:[id number] Potassium Chloride 10 meq 400 In Water For Injection 1 100ml.bag @ 100 mls/hr IVPB Q1H [facility] Rx#: [id number] Sodium Chloride 0.9% 1, 30 3 000 ml @ 20 mls/hr IV . Q24H [facility] Rx#:[id number] Intake, IV Titration 100 102.011 46.774 Amount Argatroban 250 mg In 52.011 46.774 Sodium Chloride 0.9% 250 ml @ 1 MCG/KG/MIN 7.308 mls/hr IV .Q24H [facility] Rx#: [id number] Fluconazole in NaCl,Iso- 50 Osm 100 mg In Saline 1 50ml.bag @ 50 mls/hr IVPB DAILY [facility] Rx#:[id number] Magnesium Sulfate-D5w Pmx 100 1 gm In Dextrose/Water 1 100ml.bag @ 100 mls/hr IVPB ONCE ONE Rx#: [id number] Output: Urine 1210 2285 165 Other: Voiding Method Indwelling Catheter Indwelling Catheter Indwelling Catheter # Bowel Movements 1 ABP, PAP, CO, CI - Last Documented Arterial Blood Pressure 142/40 - Labs CBC & Chem 7: 04/10/23 04:20 04/10/23 04:20 Labs: Abnormal Lab Results - Last 24 Hours (Table) 04/09/23 04/10/23 04/10/23 Range/Units 23:18 04:20 04:20 RBC 2.73 L (3.80-5.40) m/uL Hgb 7.7 L (11.4-16.0) gm/dL Hct 25.5 L (34.0-46.0) % MCHC 30.0 L (31.0-37.0) g/dL RDW 16.1 H (11.5-15.5) % APTT (22.0-30.0) sec Sodium 147 H (137-145) mmol/L Chloride 112 H (98-107) mmol/L Carbon Dioxide 33 H (22-30) mmol/L BUN 38 H (7-17) mg/dL Glucose 144 H (74-99) mg/dL POC Glucose (mg/dL) 156 H (70-110) mg/dL Calcium 10.9 H (8.4-10.2) mg/dL 04/10/23 04/10/23 04/10/23 Range/Units 05:42 11:49 14:16 RBC (3.80-5.40) m/uL Hgb (11.4-16.0) gm/dL Hct (34.0-46.0) % MCHC (31.0-37.0) g/dL RDW (11.5-15.5) % APTT 38.8 H (22.0-30.0) sec Sodium (137-145) mmol/L Chloride (98-107) mmol/L Carbon Dioxide (22-30) mmol/L BUN (7-17) mg/dL Glucose (74-99) mg/dL POC Glucose (mg/dL) 161 H 176 H (70-110) mg/dL Calcium (8.4-10.2) mg/dL 04/10/23 04/10/23 04/10/23 Range/Units 17:02 17:36 19:42 RBC (3.80-5.40) m/uL Hgb (11.4-16.0) gm/dL Hct (34.0-46.0) % MCHC (31.0-37.0) g/dL RDW (11.5-15.5) % APTT 51.8 H 48.5 H (22.0-30.0) sec Sodium (137-145) mmol/L Chloride (98-107) mmol/L Carbon Dioxide (22-30) mmol/L BUN (7-17) mg/dL Glucose (74-99) mg/dL POC Glucose (mg/dL) 186 H (70-110) mg/dL Calcium (8.4-10.2) mg/dL
[2023-04-11 04:13] LABS: HCT 25.5 % (34.0-46.0); HGB 7.9 gm/dL (11.4-16.0); Hypochromasia Marked; MCV 93.7 fL (80.0-100.0); Mean Platelet Volume 8.4; Platelet Count 271 k/uL (150-450); RBC 2.73 m/uL (3.80-5.40); RDW 15.9 % (11.5-15.5); WBC 6.1 k/uL (3.8-10.6)
[2023-04-11 04:51] LABS: Calcium 11.6 mg/dL (8.4-10.2); Magnesium 1.9 mg/dL (1.6-2.3); Potassium 3.9 mmol/L (3.5-5.1)
[2023-04-11 06:07] LABS: Glucose,Whole Blood 182 mg/dL (70-110)
[2023-04-11] MEDS: INSULIN ASPART (NovoLOG) 100 UNIT/ML VIAL SQ SCH ×3 (06:16→18:30)
[2023-04-11] MEDS: DEXTROSE 5% IN WATER 1,000 ML IV SCH ×3 (06:17→23:07)
--- NOTE | 2023-04-11 06:51 | XR ---
EXAMINATION TYPE: XR chest 1V DATE OF EXAM: 04/11/2023 CLINICAL HISTORY: Difficulty breathing progress study. TECHNIQUE: Single AP portable semiupright view of the chest is obtained. COMPARISON: CTA chest from one day earlier and older studies FINDINGS: Stable left-sided subclavian central venous catheter. Persistent left basilar opacity. Upper lungs are clear without pneumothorax. Cardiac silhouette size is stable and upper limits of normal. Osseous structures are intact.. IMPRESSION: Left basilar acute infiltrate and/or atelectasis and likely small bilateral pleural effus ion are all redemonstrated and not significantly changed from one day earlier.
[2023-04-11] MEDS: POTASSIUM CHLORIDE 10 MEQ in WATER FOR INJECTION 1 100ML.BAG IVPB SCH ×6 (07:01→23:04)
[2023-04-11] MEDS ORDERED: MAGNESIUM SULFATE-D5W PMX 1 GM in DEXTROSE/WATER 1 100ML.BAG IVPB ONE ×2 (07:30→13:00)
[2023-04-11] MEDS: IPRATROPIUM-ALBUTEROL 3 ML NEB INHALATION SCH ×4 (07:53→20:02)
[2023-04-11] MEDS: FUROSEMIDE 10 MG/ML 4 ML VIAL IV SCH (08:37)
[2023-04-11] MEDS: FLUCONAZOLE IN NACL,ISO-OSM 100 MG in SALINE 1 50ML.BAG IVPB SCH (08:37)
[2023-04-11] MEDS: NYSTATIN 100,000 UNIT/ML SUSP 500,000 UNIT/5 ML CUP PO SCH ×4 (08:37→20:58)
--- NOTE | 2023-04-11 09:20 | P.PN ---
Subjective Progress Note Date: 04/11/23 This patient is a 72- year old female who is status-post right revision distal femoral replacing hinge for comminuted periprosthetic distal femur fracture on 03/28/23. 04/11/23: Today is post-operative day #14. Patient is examined bedside this morning with Dr. Stack. She is extubated and no longer sedated. Patient was sent for a chest CTA yesterday which revealed pulmonary emboli. Per nursing, patient is overall improving. No new complaints in regard to the right knee. Objective - Vital Signs Vital signs: Vital Signs Temp 98.3 F 04/11/23 08:00 Pulse 70 04/11/23 09:00 Resp 21 04/11/23 09:00 BP 160/63 04/09/23 12:00 Pulse Ox 96 04/11/23 09:00 FiO2 50 04/11/23 03:59 Intake & Output 04/10/23 04/11/23 04/11/23 18:59 06:59 18:59 Intake Total 927.011 601.183 447.853 Output Total 2285 775 425 Balance -1357.989 -173.817 22.853 Weight 120.6 kg 118.3 kg Intake: IV 825 396 366 Dextrose 5% in Water 1, 795 360 60 000 ml @ 30 mls/hr IV . Q24H [facility] Rx#:[id number] Magnesium Sulfate-D5w Pmx 100 1 gm In Dextrose/Water 1 100ml.bag @ 100 mls/hr IVPB ONCE ONE Rx#: [id number] Potassium Chloride 10 meq 200 In Water For Injection 1 100ml.bag @ 100 mls/hr IVPB Q1H [facility] Rx#: [id number] Sodium Chloride 0.9% 1, 30 36 6 000 ml @ 20 mls/hr IV . Q24H [facility] Rx#:[id number] Intake, IV Titration 102.011 205.183 81.853 Amount Argatroban 250 mg In 52.011 205.183 81.853 Sodium Chloride 0.9% 250 ml @ 1 MCG/KG/MIN 7.308 mls/hr IV .Q24H [facility] Rx#: [id number] Fluconazole in NaCl,Iso- 50 Osm 100 mg In Saline 1 50ml.bag @ 50 mls/hr IVPB DAILY [facility] Rx#:[id number] Output: Urine 9372 201 425 Other: Voiding Method Indwelling Catheter Indwelling Catheter # Bowel Movements 1 ABP, PAP, CO, CI - Last Documented Arterial Blood Pressure 165/50 - Exam On examination, patient is sitting up in bed. She is alert and answers questions appropriately. On inspection of the right knee, knee immobilizer in place, Prevena wound vac in place. Prevena wound vac removed and there is a well- healing incision with intact Nylon sutures. No surrounding erythema. No drainage. There is moderate swelling of the knee. The right lower extremity is warm and well perfused. Dorsalis pedis pulse easily palpable. - Labs CBC & Chem 7: 04/11/23 04:00 04/11/23 04:00 Labs: Abnormal Lab Results - Last 24 Hours (Table) 04/10/23 04/10/23 04/10/23 Range/Units 11:49 14:16 17:02 RBC (3.80-5.40) m/uL Hgb (11.4-16.0) gm/dL Hct (34.0-46.0) % RDW (11.5-15.5) % APTT 38.8 H 51.8 H (22.0-30.0) sec Sodium (137-145) mmol/L Chloride (98-107) mmol/L BUN (7-17) mg/dL Glucose (74-99) mg/dL POC Glucose (mg/dL) 176 H (70-110) mg/dL Calcium (8.4-10.2) mg/dL 04/10/23 04/10/23 04/10/23 Range/Units 17:36 19:42 23:39 RBC (3.80-5.40) m/uL Hgb (11.4-16.0) gm/dL Hct (34.0-46.0) % RDW (11.5-15.5) % APTT 48.5 H (22.0-30.0) sec Sodium (137-145) mmol/L Chloride (98-107) mmol/L BUN (7-17) mg/dL Glucose (74-99) mg/dL POC Glucose (mg/dL) 186 H 171 H (70-110) mg/dL Calcium (8.4-10.2) mg/dL 04/11/23 04/11/2304/11/23 Range/Units 00:30 04:00 04:00 RBC 2.73 L (3.80-5.40) m/uL Hgb 7.9 L (11.4-16.0) gm/dL Hct 25.5 L (34.0-46.0) % RDW 15.9 H (11.5-15.5) % APTT 51.0 H 43.3 H (22.0-30.0) sec Sodium (137-145) mmol/L Chloride (98-107) mmol/L BUN (7-17) mg/dL Glucose (74-99) mg/dL POC Glucose (mg/dL) (70-110) mg/dL Calcium (8.4-10.2) mg/dL 04/11/23 04/11/23 04/11/23 Range/Units 04:00 06:05 07:30 RBC (3.80-5.40) m/uL Hgb (11.4-16.0) gm/dL Hct (34.0-46.0) % RDW (11.5-15.5) % APTT 50.9 H (22.0-30.0) sec Sodium 148 H (137-145) mmol/L Chloride 112 H (98-107) mmol/L BUN 32 H (7-17) mg/dL Glucose 160 H (74-99) mg/dL POC Glucose (mg/dL) 182 H (70-110) mg/dL Calcium 11.6 H (8.4-10.2) mg/dL Assessment and Plan Assessment: Status-post right revision distal femoral replacing hinge for comminuted periprosthetic distal femur fracture on 03/28/23. Post-op day #14. Plan: - Prevena wound vac was removed today. A new Optifoam dressing was placed. Dressing should stay in place. Knee immobilizer was discontinued. - Patient may weight bear to tolerance on right knee with walker once cleared by primary team. - We will continue to follow patient very closely.
--- NOTE | 2023-04-11 09:45 | P.PN ---
Subjective Progress Note Date: 04/11/23 Principal diagnosis: This is a 72-year-old female seen in consultation because of acute kidney injury, secondary to prerenal causes from post knee revision on 03/28/2023. Also known with chronic kidney disease secondary stage III with baseline creatinine of 1.2 and possibly diabetic nephropathy as well. Her creatinine peaked at 2.43 on 03/30/2023 and is improved to 0.8 as of this morning. She continues to be on oxygen, and is maintained Lasix because of edema. and she was on CPAP currently she is on nasal cannula oxygen. She feels fairly well and has any complaints. She does have some minimal edema of the arms and trace in her legs. Additionally she is known with hypercalcemia and was maintained on Sensipar, because of difficulty swallowing this was on hold. Her calcium is gone up to 11.6 this morning. Previously PTH was 70 which is just below high in normal which is 72. PTH related peptide not available.. Objective - Vital Signs Vital signs: Vital Signs Temp 98.3 F 04/11/23 08:00 Pulse 70 04/11/23 09:00 Resp 21 04/11/23 09:00 BP 160/63 04/09/23 12:00 Pulse Ox 96 04/11/23 09:00 FiO2 50 04/11/23 03:59 Intake & Output 04/10/23 04/11/23 04/11/23 18:59 06:59 18:59 Intake Total 927.011 601.183 447.853 Output Total 2285 775 425 Balance -1357.989 -173.817 22.853 Weight 120.6 kg 118.3 kg Intake: IV 825 396 366 Dextrose 5% in Water 1, 795 360 60 000 ml @ 30 mls/hr IV . Q24H [facility] Rx#:[id number] Magnesium Sulfate-D5w Pmx 100 1 gm In Dextrose/Water 1 100ml.bag @ 100 mls/hr IVPB ONCE ONE Rx#: [id number] Potassium Chloride 10 meq 200 In Water For Injection 1 100ml.bag @ 100 mls/hr IVPB Q1H [facility] Rx#: [id number] Sodium Chloride 0.9% 1, 30 36 6 000 ml @ 20 mls/hr IV . Q24H [facility] Rx#:[id number] Intake, IV Titration 102.011 205.183 81.853 Amount Argatroban 250 mg In 52.011 205.183 81.853 Sodium Chloride 0.9% 250 ml @ 1 MCG/KG/MIN 7.308 mls/hr IV .Q24H [facility] Rx#: [id number] Fluconazole in NaCl,Iso- 50 Osm 100 mg In Saline 1 50ml.bag @ 50 mls/hr IVPB DAILY [facility] Rx#:[id number] Output: Urine 2285 775 425 Other: Voiding Method Indwelling Catheter Indwelling Catheter # Bowel Movements 1 ABP, PAP, CO, CI - Last Documented Arterial Blood Pressure 165/50 On examination is awake alert oriented comfortable currently on nasal cannula oxygen HEENT exam no JVP noted neck is supple no facial asymmetry Lungs are clear to auscultation fair air entry bilaterally Heart sounds unremarkable normal sinus rhythm Abdomen soft obese Extremity exam was trace edema in the legs and minimal and her arms. Neurologically awake alert oriented - Labs CBC & Chem 7: 04/11/23 04:00 04/11/23 04:00 Labs: Abnormal Lab Results - Last 24 Hours (Table) 04/10/23 04/10/23 04/10/23 Range/Units 11:49 14:16 17:02 RBC (3.80-5.40) m/uL Hgb (11.4-16.0) gm/dL Hct (34.0-46.0) % RDW (11.5-15.5) % APTT 38.8 H 51.8 H (22.0-30.0) sec Sodium (137-145) mmol/L Chloride (98-107) mmol/L BUN (7-17) mg/dL Glucose (74-99) mg/dL POC Glucose (mg/dL) 176 H (70-110) mg/dL Calcium (8.4-10.2) mg/dL 04/10/23 04/10/23 04/10/23 Range/Units 17:36 19:42 23:39 RBC (3.80-5.40) m/uL Hgb (11.4-16.0) gm/dL Hct (34.0-46.0) % RDW (11.5-15.5) % APTT 48.5 H (22.0-30.0) sec Sodium (137-145) mmol/L Chloride (98-107) mmol/L BUN (7-17) mg/dL Glucose (74-99) mg/dL POC Glucose (mg/dL) 186 H 171 H (70-110) mg/dL Calcium (8.4-10.2) mg/dL 04/11/23 04/11/23 04/11/23 Range/Units 00:30 04:00 04:00 RBC 2.73 L (3.80-5.40) m/uL Hgb 7.9 L (11.4-16.0) gm/dL Hct 25.5 L (34.0-46.0) % RDW 15.9 H (11.5-15.5) % APTT 51.0 H 43.3 H (22.0-30.0) sec Sodium (137-145) mmol/L Chloride (98-107) mmol/L BUN (7-17) mg/dL Glucose (74-99) mg/dL POC Glucose (mg/dL) (70-110) mg/dL Calcium (8.4-10.2) mg/dL 04/11/23 04/11/23 04/11/23 Range/Units 04:00 06:05 07:30 RBC (3.80-5.40) m/uL Hgb (11.4-16.0) gm/dL Hct (34.0-46.0) % RDW (11.5-15.5) % APTT 50.9 H (22.0-30.0) sec Sodium 148 H (137-145) mmol/L Chloride 112 H (98-107) mmol/L BUN 32 H (7-17) mg/dL Glucose 160 H (74-99) mg/dL POC Glucose (mg/dL) 182 H (70-110) mg/dL Calcium 11.6 H (8.4-10.2) mg/dL Assessment and Plan Assessment: Impression 1. Acute kidney injury from prerenal factors from postop knee surgery creatinine improved from 2.43-0.8, on Lasix 40 IV with good urine output 2. edema, significantly improved. Currently on Lasix, 40 mg IV daily . 3. Chronic kidney disease stage III diabetic nephropathy and nephrosclerosis with baseline creatinine 1.2. 4. Hypercalcemia was maintained on Sensipar. Calcium is 10.9, went up to 11.6 this morning as she is off of Sensipar because of problems with swallowing 5. Questionable pulmonary embolism and severe pulmonary hypertension with moderate to severe tricuspid regurgitation. 6. Status post knee surgery. 7. Failed swallow evaluation. 8. Hyponatremia secondary to decreased free water intake as well as the hyperc alcemia may be causing a diabetes insipidus Recommendation 1. Maintain Lasix 40 mg daily IV as her urine output is satisfactory and it Edema to improve. 2. Resume cinacalcet 30 mg daily because of the hypercalcemia. If she cannot swallow it we'll try IV Parsibiv if one was again obtain it, and they cannot we will had to go to [facility] 3. Because of the hypernatremia increase the D5W at from 30 mL to 75 mL an hour 4. Will watch her blood pressure is expected to improve.
[2023-04-11] MEDS: METOPROLOL TARTRATE 25 MG TAB PO SCH ×2 (09:46→20:56)
[2023-04-11] MEDS: FLUoxetine HCL 20 MG CAP PO SCH (09:46)
[2023-04-11] MEDS: amLODIPine 10 MG TAB PO SCH (09:46)
[2023-04-11] MEDS: FERROUS SULFATE 325 MG TAB PO SCH (09:46)
[2023-04-11] MEDS: CINACALCET 30 MG TAB PO SCH (09:47)
[2023-04-11 11:14] LABS: Glucose,Whole Blood 217 mg/dL (70-110)
--- NOTE | 2023-04-11 11:24 | P.PN ---
Subjective Progress Note Date: 04/11/23 Principal diagnosis: Respiratory failure. Patient was reevaluated today on 04/01/2023, remains in the ICU, intubated and mechanically ventilated. She is now on assist control rate of 32 tidal volume of 450 FiO2 45% and PEEP of 5 ABG showed a pO2 of 65 pCO2 43 pH of 7.34 hence Fi O2 was increased to 50%. Chest x-ray showed atelectasis of the left lower lobe as the patient underwent bronchoscopy today, and suction some tenacious secretions in the left lower lobe bronchus. No evidence of any other significant findings. Fluid obtained was sent for diagnostic studies. Patient remains on propofol at 20 mcg/kg/m she is also on heparin drip for presumptive pulmonary embolism she is receiving insulin at 5.3 units per hour norepinephrine at low-dose, however this was discontinued once the patient woke up and evaluated off propofol. Patient remains on Rocephin empirically, cultures have been negative so far. Awaiting cultures from the BAL of the left lower lobe today. Obviously the patient is not quite ready for weaning off propofol she was noted to be tachypneic, tachycardic, and her blood pressure was as high as 200 systolic. Hence no further weaning to be done today. And her ventilator settings will be adjusted accordingly after bronchoscopy and BAL. Labs today were reviewed she has a bit of leukocytosis with WBC count of 16.9 her PTT is therapeutic at 45.7 and electrolytes are normal BUN is down to 46 creatinine is down to 1.20 will continue to monitor heparin for now and monitor her renal status, may eventually recommend CT angiogram of the chest to confirm whether the patient had thromboembolic disease/pulmonary embolism. Pro calcitonin level was 1.91, nonetheless patient remains on Rocephin. So far urine cultures and blood cultures and sputum cultures have been negative Patient was reevaluated today on 04/02/2023, remains in the ICU, intubated and mechanically ventilated. Patient had a bit of a setback last night, apparently there was some issues with the nasogastric tube, and it was felt that the patient may have aspirated some of her feedings from the nasogastric tube, hence this tube was removed and another tube was placed, follow-up chest x-ray showed adequate placement of the orogastric tube. In the meantime the patient desat urated and she required increase in her FiO2. She went up as high as 75% PEEP was increased to 8 and today I recommended increasing the PEEP to 12 and FiO2 down to 65%. And advised titration. Chest x-ray continues to show left lower lobe consolidation. Right side seems to be relatively clear. ABG this morning showed a pO2 of 84 pCO2 51 pH of 7.39. Patient is on propofol at 50 mcg/kg/m she is also on insulin at 4.25 units per hour vital HPI 29 mL/h she is off norepinephrine. Considering the aspiration situation I recommended that we change antibiotics to Zosyn cultures from the BAL of the left lower lobe are pending. Her vent settings changed to assist control rate of 32 tidal volume 450 FiO2 65% and PEEP of 12. WBC count is 10.6 hemoglobin is 7.2 PTT is 35.6, electrolytes are normal BUN is 53 creatinine 1.[address] angiogram of the chest in the next 24-48 hours in the meantime the patient seems to be tolerating heparin well Reevaluated today on 04/03/2023, patient remains in the ICU, intubated and mechanically ventilated. Her assist-control rate is 3 to tidal volume is 450 FiO2 60% and I cut down today to 50% PEEP is at 12. Patient remains on propofol at 50 mcg/kg/m remains on heparin drip, she is also on vital HPI 29 mL per hour. Antibiotics aguirre remains on Zosyn, cultures have been negative along. Even though washing from the BAL of the left lower lobe remains nondiagnostic. ABG showed a pO2 of 108 pCO2 42 pH of 7.45 hence FiO2 was cut down from 60% to 50%. Patient has been off sedation, she does not seem to be appropriate, she opens her eyes, but does not follow any instructions, she seems to be confused, and encephalopathic. Hence I initiated a neurological consultation, I believe the patient may have sustained fat embolism to explain her mental status. Would like to have a CT of the brain and CT of the chest, however the patient cannot lay flat, and she desaturates significantly upon laying flat, hence we'll hold on both for now. Her urine output is excellent and she was given more Lasix a day. Her pain seems to be under control and her blood pressure seems to respond well to Dilaudid every 2 hours as needed. Considering her ABG is marginal and considering that the patient is requiring relatively high PEEP I am not yet ready to extubate the patient also concerned about her mental status. WBC count is 10.9 hemoglobin is 7.4. PTT is 53.6. BUN is 56 creatinine is 1.07. Considering CT angiogram of the chest but because of her inability to lay flat and she desaturates easily him holding on the CT angiogram of the chest for now. Progress note dated 04/04/2023. 72-year-old female admitted back on March 26. She had a fall and fractured her right femur. She went to the operating room on March 28, and was intubated on that day. She was thought to possibly have pulmonary embolism, or fat embolism syndrome. Because of her instability, she's not been able to go for a CT angiogram. Currently, she remains on the ventilator, at volume assist control, rate 32, , tidal volume 450, FiO2 50%, and PEEP of 12. Blood gases show pO2 of 91, pCO2 44, and pH is 7.44. She remains on propofol at 75 mcg/kg/m, IV heparin, 0.9 at KVO, and vital, at 23 mL an hour, which is goal. The nurse has a number of issues today and redressed some all. For her blood pressure elevation, we start her on Cleveprex, to be titrated slowly systolic blood pressures less than 160 and the mean is less than 100. We had backed the patien t's Toprol-XL. In addition, because of fluid retention, we'll give the patient Lasix 60 mg IV push. We will dose daily based on her I's and O's. We also will discontinue heparin, and started on Lovenox 120 mg subcu every 12 hours. This is because her platelet count has declined to 80,000. In addition, we will order that heparin-induced thrombocytopenia antibodies. White count 10.5, hemoglobin 7.7, hematocrit 23.8, and platelet count 80,000. Sodium 142, potassium 4.9, chlorides 108, CO2 28, BUN 54, creatinine 0.99. Microbiologic sampling has been negative. Chest x-ray shows changes of COPD, with a small left-sided pleural effusion, and retrocardiac atelectasis or consolidation. Progress note dated 04/05/2023. 72-year-old female admitted back on March 26. She had a fall and a fractured right femur. She went to the operating room on March 28, and was intubated on that day. She was thought to have possibly a pulmonary embolism, or fat embolism syndrome. Because of instability, the patient has not been able to go down for a CT angiogram. She did have Dopplers of the lower extremity that were negative. She remains on mechanical ventilator. She is on the volume assist control, rate 32, tidal volume 450, FiO2 50%, and a PEEP of 12. Arterial blood gases show pO2 of 68, pCO2 45, and a pH is 7.45. The patient remains on Cleveprex at 4 mg an hour, propofol at 50 mcg/kg/m, saline at 10 mL an hour, and vital, at 29 mL an hour, which is goal. White count 11.2, hemoglobin 7.9, hematocrit 24.9, and platelet count 64,000. Sodium 139, potassium 4.1, chlorides 104, CO2 29, BUN 49, and creatinine 0.95. Glucose 168. Microbiologic data is negative. Chest x-rays consistent with mild fluid overload. There may be some basilar infiltrates or atelectasis. Progress note dated 04/06/2023. 72-year-old female admitted back on March 26. Should a fall with a fractured right femur. She went to the operating room 2 days later on the , to have the fracture repaired. She was placed on the ventilator at that time, and has been on the ventilator since. She was thought to possibly have either fat embolism syndrome, or a pulmonary embolism. She's been too unstable, to take down for a computed tomography scan of the chest, and now, her renal function is such that the dye, with injured her kidneys even further. Also, yesterday, because of dropping platelet counts, we ordered the heparin-induced thrombocytopenia panel, and it was positive, so I started the patient on A rgatroban, at 2.5 mcg/kg/m. The platelet counts actually a bit higher today. She remains on the ventilator, volume assist control, rate 32, out of I'm 450, FiO2 40%, and PEEP of 12. Blood gases show pO2 of 70, pCO2 43, and a pH is 7.49. His blood gases consistent with a very mild metabolic alkalosis. In addition to Argatroban, the patient is on propofol at 40 mcg/kg/m, and Cleveprex at 2 mg an hour, which may be discontinued. She's getting tube feedings with vital at 29 mL an hour, which is goal. Today, we will lessen her sedation, for a daily interruption of sedation. She is likely not ready for a spontaneous breathing trial. White count 12.1, hemoglobin 8.2, hematocrit 25.6, and p latelet count 78,000. Yesterday was 64,000. The patient's sodium is 141, potassium 4.1, chlorides 101, CO2 32, BUN 50, creatinine 1.11. Microbiologic studies are all negative thus far. Chest x-ray this morning shows atelectasis or infiltrate at the right lung base, and some consolidation or fluid at the left lung base. Progress note dated 04/07/2023. 72-year-old female admitted back on March 26, status post fall, with a fractured right femur. The patient went to the operating room for repair, 2 days later on the , and subsequently has been on mechanical ventilator, and has not been able to be weaned off. The patient has had a number of issues including elevated blood pressures, requiring multiple blood pressure medications including IV Cleveprex, the potential for the possibility of pulmonary embolism versus fat embolism syndrome, high oxygen and PEEP requirements, and more rec ently, the development of heparin-induced thrombocytopenia. Ventilator settings include assist control, rate 32, tidal volume 450, FiO2 40%, with 10. Blood gases show pO2 of 96, pCO2 38, and a pH is 7.53. The patient has a metabolic alkalosis, secondary to volume contraction, and mild hypokalemia. The patient's getting saline at 20 mL an hour, propofol at 20 mcg/kg/m, argatroban at 2.5 mcg/kg/m, and vital high protein at goal, which is 63 mL an hour. White count 9.6, hemoglobin 8, hematocrit 25.4, and platelet count is now up to 114,000. PTT is 68.9. Sodium 142, potassium 3.7, chlorides 104, CO2 33, BUN 53, and creatinine 1.06. The patient's chest x-ray shows improving pulmonary vascular congestion. Progress note dated 04/08/2023. 72-year-old female again seen in room 264. The patient remains on mechanical ventilation. We will attempt another daily interruption of sedation. Yesterday, with a DIS, she did very poorly. Her ventilator settings include the volume assist control, rate 32, tidal volume 450, FiO2 40% and PEEP of 10. Blood gases show pO2 of 80, pCO2 39, and a pH is 7.53. The patient has a mild/moderate metabolic alkalosis secondary to volume contraction, and hypokalemia. The patient's on propofol at 35 mcg/kg/m, 0.90 KVO, vital high protein at goal, which is 29 mL an hour, and argatroban, at 2.5 mcg/kg/m. White count 8.0, hemoglobin 7.9, hematocrit 25, and platelet count 163,000. PTT is 68.6. Sodium 144, potassium 3.4, chlorides 106, CO2 32, BUN 54, and creatinine 1.07. Microbiologic studies are negative. Chest x-ray shows evidence of left basilar consolidation, small left pleural effusion, as well as some patchy right-sided atelectasis or infiltrate. This patient has been intubated since March 28. Progress note dated 04/09/2023. 72-year-old female again seen in room 264. Yesterday, the patient was extubated. The patient did spend the night on BiPAP. Her BiPAP settings were 12/5 and 50%. The patient's currently on 12 L high flow oxygen. She's getting D5W at 30 mL an hour, which is replacing her saline. We also we'll DC her Ar gatroban. Yesterday, and a conversation with her daughter Jyoti, and thought this was a right time to get her extubated. The patient will not be reintubated should she fail. We can use all forms of oxygen therapy, including AIRVO, and BiPAP, but no intubation or mechanical ventilation. White count 6.6, hemoglobin 7.7, hematocrit 24.8, and platelet count was 198,000. PTT is 66. Sodium 146, potassium 4.1, chlorides 110, CO2 38, anion gap 3, BUN 46, and creatinine 1.10. Chest x-ray shows some mild bibasilar left greater than right, atelectasis or infiltrate. Microbiologic studies have been negative. Progress note dated 04/10/2023. The patient is seen today in room 264. She is on 10 L high flow oxygen. She did used to BiPAP last night, with settings of 12/5 and 50%. She's getting de xtrose, at 30 mL an hour. Much more awake and alert. She's not having any respiratory difficulty whatsoever. White count 6.5, hemoglobin 7.7, hematocrit 25.5, and platelet count 234,000. Sodium 147, potassium 4.2, chlorides 112, CO2 33, BUN 38, and creatinine 0.8. Calcium is 10.9. Progress note dated 04/11/2023. The patient is seen today in room 264. She appears to be doing much better. S he's been weaned down to 2 L of oxygen. She's getting dextrose at 75 mL an hour. A CT angiogram was positive for pulmonary embolism. She is back on Argatroban, because she failed her swallow evaluation, and could not be started on Eliquis. In addition, the patient was on BiPAP last night with settings of IPAP 12, EPAP 5, and 50%. She was on BiPAP for about 7 hours. Clinically much more awake and alert. Her breathing appears to be relatively stable. White count 6.1, hemoglobin 7.9, hematocrit 25.5, and platelet count 271,000. Sodium 148, potassium 3.9, chlorides 112, CO2 29, BUN 32, and creatinine 0.80. The patient's anion gap is normal. Calcium is 11.6. Magnesium 1.9. Chest x-ray shows left basilar infiltrate and/or atelectasis, with a very small effusion. The chest x-ray in my opinion, is unchanged. Objective - Vital Signs Vital signs: Vital Signs Temp 98.3 F 04/11/23 08:00 Pulse 72 04/11/23 10:00 Resp 15 04/11/23 10:00 BP 160/63 04/09/23 12:00 Pulse Ox 95 04/11/23 10:00 FiO2 50 04/11/23 03:59 Intake & Output 04/10/23 04/11/23 04/11/23 18:59 06:59 18:59 Intake Total 927.011 601.183 641.499 Output Total 2285 775 950 Balance -1357.989 -173.817 -308.501 Weight 120.6 kg 118.3 kg Intake: IV 825 396 489 Dextrose 5% in Water 1, 795 360 180 000 ml @ 30 mls/hr IV . Q24H [facility] Rx#:[id number] Magnesium Sulfate-D5w Pmx 100 1 gm In Dextrose/Water 1 100ml.bag @ 100 mls/hr IVPB ONCE ONE Rx#: [id number] Potassium Chloride 10 meq 200 In Water For Injection 1 100ml.bag @ 100 mls/hr IVPB Q1H [facility] Rx#: [id number] Sodium Chloride 0.9% 1, 30 36 9 000 ml @ 20 mls/hr IV . Q24H [facility] Rx#:[id number] Intake, IV Titration 102.011 205.183 152.499 Amount Argatroban 250 mg In 52.011 205.183 152.499 Sodium Chloride 0.9% 250 ml @ 1 MCG/KG/MIN 7.308 mls/hr IV .Q24H [facility] Rx#: [id number] Fluconazole in NaCl,Iso- 50 Osm 100 mg In Saline 1 50ml.bag @ 50 mls/hr IVPB DAILY [facility] Rx#:[id number] Output: Urine 2285 775 950 Other: Voiding Method Indwelling Catheter Indwelling Catheter Indwelling Catheter # Bowel Movements 1 ABP, PAP, CO, CI - Last Documented Arterial Blood Pressure 156/45 - Exam No acute distress, awake, verbal, on 2 L oxygen. Saturations are 96%. HEENT examination is grossly unremarkable. Neck supple. Full range of motion. No adenopathy thyromegaly or neck vein distention. Cardiovascular examination reveals regular rhythm rate. S1-S2 normal. No S3 or S4. No discernible murmur noted. Heart sounds are distant. Heart rate 72 bpm. Lungs reveal scattered bilateral rhonchi. No wheezes or crackles. Breath sounds equal. Saturation is 95 % Abdomen obese, with bowel sounds. Extremities are intact. No cyanosis or clubbing. There is diffuse edema and anasarca. Skin is without rash or lesion. Neurologic examination is brief but nonfocal. - Labs CBC & Chem 7: 04/11/23 04:00 04/11/23 04:00 Labs: Abnormal Lab Results - Last 24 Hours (Table) 04/10/23 04/10/23 04/10/23 Range/Units 11:49 14:16 17:02 RBC (3.80-5.40) m/uL Hgb (11.4-16.0) gm/dL Hct (34.0-46.0) % RDW (11.5-15.5) % APTT 38.8 H 51.8 H (22.0-30.0) sec Sodium (137-145) mmol/L Chloride (98-107) mmol/L BUN (7-17) mg/dL Glucose (74-99) mg/dL POC Glucose (mg/dL) 176 H (70-110) mg/dL Calcium (8.4-10.2) mg/dL 04/10/23 04/10/23 04/10/23 Range/Units 17:36 19:42 23:39 RBC (3.80-5.40) m/uL Hgb (11.4-16.0) gm/dL Hct (34.0-46.0) % RDW (11.5-15.5) % APTT 48.5 H (22.0-30.0) sec Sodium (137-145) mmol/L Chloride (98-107) mmol/L BUN (7-17) mg/dL Glucose (74-99) mg/dL POC Glucose (mg/dL) 186 H 171 H (70-110) mg/dL Calcium (8.4-10.2) mg/dL 04/11/23 04/11/23 04/11/23 Range/Units 00:30 04:00 04:00 RBC 2.73 L (3.80-5.40) m/uL Hgb 7.9 L (11.4-16.0) gm/dL Hct 25.5 L (34.0-46.0) % RDW 15.9 H (11.5-15.5) % APTT 51.0 H 43.3 H (22.0-30.0) sec Sodium (137-145) mmol/L Chloride (98-107) mmol/L BUN (7-17) mg/dL Glucose (74-99) mg/dL POC Glucose (mg/dL) (70-110) mg/dL Calcium (8.4-10.2) mg/dL 04/11/23 04/11/23 04/11/23 Range/Units 04:00 06:05 07:30 RBC (3.80-5.40) m/uL Hgb (11.4-16.0) gm/dL Hct (34.0-46.0) % RDW (11.5-15.5) % APTT 50.9 H (22.0-30.0) sec Sodium 148 H (137-145) mmol/L Chloride 112 H (98-107) mmol/L BUN 32 H (7-17) mg/dL Glucose 160 H (74-99) mg/dL POC Glucose (mg/dL) 182 H (70-110) mg/dL Calcium 11.6 H (8.4-10.2) mg/dL 04/11/23 04/11/23 Range/Units 10:00 11:09 RBC (3.80-5.40) m/uL Hgb (11.4-16.0) gm/dL Hct (34.0-46.0) % RDW (11.5-15.5) % APTT 58.8 H (22.0-30.0) sec Sodium (137-145) mmol/L Chloride (98-107) mmol/L BUN (7-17) mg/dL Glucose (74-99) mg/dL POC Glucose (mg/dL) 217 H (70-110) mg/dL Calcium (8.4-10.2) mg/dL Assessment and Plan Assessment: Acute hypoxemic and hypercapnic respiratory failure, secondary to pulmonary embolism. Status post intubation and mechanical ventilation, beginning on March 28, with extubation on 04/08/2023. Postop day #14, status post repair of comminuted right femur fracture. 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 Hypotension, which may relate to PE, or FES, resolved. Acute kidney injury. Acute blood loss anemia. Lactic acidemia secondary to hypotension and hypoperfusion. Shock liver. Previous right total knee replacement. Morbid obesity. History of obstructive sleep apnea syndrome. Previous history of tobacco use. Left lower lobe atelectasis versus pneumonia. Status post bronchoscopy and BAL, postop day #10. Mental status changes, likely related to metabolic encephalopathy. Plan: Plan dated 04/04/2023. The patient is started back on Toprol, which she was taking as an outpatient, and we also added IV Cleveprex, is a dihydropyridine calcium channel alisha, for better blood pressure support. I put targets of systolics less than 160, and mean arterial pressures of less than 100 to the nurse. The patient will get Lasix 60 mg IV push once. We'll DC the IV heparin in favor of Lovenox 120 mg subcu every 12 hours. HIT antibodies are ordered. Labs, x-rays, medications are all reviewed. We will continue to follow make recommendations along the way. Prognosis is guarded. Plan dated 04/05/2023. The patient's blood pressure is under better control. The patient continues on Cleveprex, and propofol. I attempted to call the , Khoa, but he did not oyster picker the phone. The nurse will restart the family. Labs, x-rays, medicatio ns are all reviewed. The patient was intubated on March 28. Because of relatively higher FiO2's, and PEEP levels, the patient is not a candidate for extubation. By the end of the week, the patient is to continue as a full code, we'll talk to the family about tracheostomy and PEG tube placement. Prognosis is certainly guarded. We will continue to follow the platelet count. She was switched from heparin to low molecular weight heparin yesterday. Plan dated 04/06/2023. Currently, the patient remains on propofol, and a small dose of Cleveprex. She's also getting tube feedings at goal. The heparin-induced thrombocytopenia panel came back positive, and the patient was started on Argatroban. The nurse will lessen the patient's sedation today, to evaluate her mental status. In addition, I had a long discussion with the daughter, Jyoti, and spoke to her about the various issues including the renal dysfunction, the pluses and minuses of doing a CT angiogram, and the problem with the platelets. In addition, we spoke about the possibility of tracheostomy and PEG tube placement. She mentioned that the patient would not once that. Because of last day and a half is been a bit better, will hold off for now. Labs, x-rays, and medications are reviewed. Prognosis is guarded. We will continue to follow make recommendations along the way. Plan dated 04/07/2023. The patient appears to be doing a bit better from the standpoint of her platelet count. I forcefully, we did a daily interruption of sedation today, the patient became very unstable, with lower saturations, and acute elevations in blood pressure. The patient was re-sedated. I will notify the family of this, we speak tomorrow. We will try to get the patient's potassium 4.5 mEq per liter. This will help the patient's metabolic alkalosis. Also, for additional blood pressure support, we added a clonidine patch, TTS #2. Labs, x-rays, medications are reviewed. Prognosis is guarded. 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 Plan dated 04/08/2023. The patient appears to be doing about the same. She remains on mechanical ventilator. She continues on propofol, and argatroban yesterday, the patient miserably failed her daily interruption of sedation. We'll attempt another daily interruption of sedation today. I will which out to her daughter Jyoti, for guidance. She remains on mechanical ventilator. Her blood gases show a primary metabolic alkalosis, secondary to volume contraction and hypokalemia. Labs, x- rays, and all medications are reviewed. Prognosis is certainly guarded. The patient may be a candidate for comfort care, if she does not do well today on her daily interruption of sedation. The patient's daughter stated that she would never want a tracheostomy tube and/or PEG tube placement. Plan dated 04/09/2023. The patient had very reasonable weaning parameters yesterday, with a very low rapid shallow breathing index, and a positive cuff leak. Therefore, we took the opportunity to extubate her. I did speak to her daughter Jyoti before hand, and she confirmed that that, the patient was not to be reintubated. The patient is currently on 12 L high flow oxygen. The patient's getting saline at KVO, to be converted to D5W at 30 mL an hour. The patient did use BiPAP at nighttime, with settings of 12/5, and 50%. The Argatroban was discontinued. Labs, x-rays, and medications are all reviewed. Zosyn can be discontinued. We will continue to follow make recommendations along the way. Prognosis is guarded. Plan dated 04/10/2023. The patient appears to be doing a bit better. She looks a bit brighter and stronger. She still on high flow oxygen at 10 L. Yesterday she was on 12 L. Labs, x-rays, and medications are all reviewed. We will continue to follow the patient and make recommendations along the way. Her IVs dextrose, running at 30 mL an hour. The patient is using BiPAP at nighttime, with settings of IPAP 12, EPAP 5, and 50%. Prognosis is certainly guarded. Even though she seems to be doing better, she certainly not out of the adam. Plan dated 04/11/2023. The patient's been weaned down to 4 L. The patient did not passed her swallow evaluation, so she could not be started on a factor X a inhibitor. This is important, because her CT angiogram was positive for pulmonary embolism. She remains on D5W at 75 mL an hour, for her hypernatremia and hyperchloremia. She is back on Argatroban for this reason. Her respiratory status is much more stable. She is awake and alert. She sitting up in bed. Continue to follow make recommendations along the way. Labs, x-rays, and medications are reviewed. Time with Patient: Greater than 30
[2023-04-11] MEDS: SENNOSIDES 8.6 MG TAB PO SCH ×2 (11:30→20:52)
[2023-04-11 12:35] LABS: Ionized Calcium 6.9 mg/dL (4.5-5.3)
[2023-04-11 12:43] LABS: Magnesium 1.8 mg/dL (1.6-2.3); Potassium 3.7 mmol/L (3.5-5.1)
[2023-04-11] MEDS ORDERED: CINACALCET 30 MG TAB PO STA (12:43)
[2023-04-11] MEDS ORDERED: CAPSAICIN 0.025% CREAM 60 GM TUBE TOPICAL PRN (12:45)
[2023-04-11] MEDS ORDERED: CALCITONIN INJ 200 UNIT/ML (MDV) VIAL SQ ONE (13:30)
--- NOTE | 2023-04-11 15:04 | P.PN ---
Subjective Progress Note Date: 04/11/23 -No acute events overnight -She is currently feeling well with no acute complaints Objective - Vital Signs Vital signs: Vital Signs Temp 98.6 F 04/11/23 12:00 Pulse 73 04/11/23 12:00 Resp 18 04/11/23 12:00 BP 160/63 04/09/23 12:00 Pulse Ox 93 L 04/11/23 12:00 FiO2 50 04/11/23 03:59 Intake & Output 04/10/23 04/11/23 04/11/23 18:59 06:59 18:59 Intake Total 927.011 601.183 864.536 Output Total 2285 775 1950 Balance -1357.989 -173.817 -1085.464 Weight 120.6 kg 118.3 kg Intake: IV 825 396 642 Dextrose 5% in Water 1, 795 360 255 000 ml @ 30 mls/hr IV . Q24H [facility] Rx#:[id number] Dextrose 5% in Water 1, 75 000 ml @ 75 mls/hr IV . [id number] [facility] Rx#:[id number] Magnesium Sulfate-D5w Pmx 100 1 gm In Dextrose/Water 1 100ml.bag @ 100 mls/hr IVPB ONCE [facility] Rx#: [id number] Potassium Chloride 10 meq 200 In Water For Injection 1 100ml.bag @ 100 mls/hr IVPB Q1H [facility] Rx#: [id number] Sodium Chloride 0.9% 1, 30 36 12 000 ml @ 20 mls/hr IV . Q24H [facility] Rx#:[id number] Intake, IV Titration 102.011 205.183 222.536 Amount Argatroban 250 mg In 52.011 205.183 222.536 Sodium Chloride 0.9% 250 ml @ 1 MCG/KG/MIN 7.308 mls/hr IV .Q24H [facility] Rx#: [id number] Fluconazole in NaCl,Iso- 50 Osm 100 mg In Saline 1 50ml.bag @ 50 mls/hr IVPB DAILY [facility] Rx#:[id number] Output: Urine 2285 775 1950 Other: Voiding Method Indwelling Catheter Indwelling Catheter Indwelling Catheter # Bowel Movements 1 ABP, PAP, CO, CI - Last Documented Arterial Blood Pressure 155/43 - Constitutional General appearance: Present: cooperative, no acute distress - EENT Eyes: Present: EOMI - Respiratory Respiratory: bilateral: CTA - Cardiovascular Rhythm: regular - Gastrointestinal General gastrointestinal: Present: soft. Absent: distended, tenderness - Integumentary Integumentary: Absent: rash - Neurologic Neurologic: Present: CNII-XII intact - Psychiatric Psychiatric: Present: A&O x's 3, appropriate affect - Labs CBC & Chem 7: 04/11/23 04:00 04/11/23 11:13 Labs: Abnormal Lab Results - Last 24 Hours (Table) 04/10/23 04/10/23 04/10/23 Range/Units 17:02 17:36 19:42 RBC (3.80-5.40) m/uL Hgb (11.4-16.0) gm/dL Hct (34.0-46.0) % RDW (11.5-15.5) % APTT 51.8 H 48.5 H (22.0-30.0) sec Sodium (137-145) mmol/L Chloride (98-107) mmol/L BUN (7-17) mg/dL Glucose (74-99) mg/dL POC Glucose (mg/dL) 186 H (70-110) mg/dL Calcium (8.4-10.2) mg/dL Ionized Calcium Lalo (4.5-5.3) mg/dL 04/10/23 04/11/23 04/11/23 Range/Units 23:39 00:30 04:00 RBC 2.73 L (3.80-5.40) m/uL Hgb 7.9 L (11.4-16.0) gm/dL Hct 25.5 L (34.0-46.0) % RDW 15.9 H (11.5-15.5) % APTT 51.0 H (22.0-30.0) sec Sodium (137-145) mmol/L Chloride (98-107) mmol/L BUN (7-17) mg/dL Glucose (74-99) mg/dL POC Glucose (mg/dL) 171 H (70-110) mg/dL Calcium (8.4-10.2) mg/dL Ionized Calcium Lalo (4.5-5.3) mg/dL 04/11/23 04/11/23 04/11/23 Range/Units 04:00 04:00 06:05 RBC (3.80-5.40) m/uL Hgb (11.4-16.0) gm/dL Hct (34.0-46.0) % RDW (11.5-15.5) % APTT 43.3 H (22.0-30.0) sec Sodium 148 H (137-145) mmol/L Chloride 112 H (98-107) mmol/L BUN 32 H (7-17) mg/dL Glucose 160 H (74-99) mg/dL POC Glucose (mg/dL) 182 H (70-110) mg/dL Calcium 11.6 H (8.4-10.2) mg/dL Ionized Calcium Lalo (4.5-5.3) mg/dL 04/11/23 04/11/23 04/11/23 Range/Units 07:30 10:00 11:09 RBC (3.80-5.40) m/uL Hgb (11.4-16.0) gm/dL Hct (34.0-46.0) % RDW (11.5-15.5) % APTT 50.9 H 58.8 H (22.0-30.0) sec Sodium (137-145) mmol/L Chloride (98-107) mmol/L BUN (7-17) mg/dL Glucose (74-99) mg/dL POC Glucose (mg/dL) 217 H (70-110) mg/dL Calcium (8.4-10.2) mg/dL Ionized Calcium Lalo (4.5-5.3) mg/dL 04/11/23 04/11/23 Range/Units 11:13 12:33 RBC (3.80-5.40) m/uL Hgb (11.4-16.0) gm/dL Hct (34.0-46.0) % RDW (11.5-15.5) % APTT 62.8 H (22.0-30.0) sec Sodium (137-145) mmol/L Chloride (98-107) mmol/L BUN (7-17) mg/dL Glucose (74-99) mg/dL POC Glucose (mg/dL) (70-110) mg/dL Calcium (8.4-10.2) mg/dL Ionized Calcium Lalo 6.9 H* (4.5-5.3) mg/dL - Imaging and Cardiology CT scan - chest: report reviewed Assessment and Plan (1) Fracture of distal end of right femur Current Visit: Yes Status: Acute Code(s): S72.401A - UNSP FRACTURE OF LOWER END OF RIGHT FEMUR, INIT FOR CLOS FX SNOMED Code(s): 538727055 (2) HIT (heparin-induced thrombocytopenia) Current Visit: Yes Status: Acute Code(s): D75.829 - HEPARIN-INDUCED THROMBOCYTOPENIA, UNSPECIFIED SNOMED Code(s): 37621906 Plan: HIT: -HIT antibody positive, 2.1, with 89% probability of JOEL positivity. Patient was started heparin for suspected PE s/p surgery and platelets were noted to decrease 5 days after initiation. Platelets were in the 250,000-400,000 during admission prior to drop. Platelets normal at 271,000. No reported episodes of bleeding -Decrease in platelets 5-10 days after initiation of heparin, with platelets in the 50-80K range is consistent with HIT -Serotinin release assay pending. DIC workup negative. -Heparin has been discontinued and patient was started on argatroban. Argatroban was discontinued on 04/08/28 given she was extubated, but unfortunately failed swallow study and was not restarted on any kind of therapeutic anticoagulation -Argatroban drip restarted on 04/10/2023, which will be continued until she can pass her swallow study -She may transition to oral Eliquis 5 mg twice daily once she is allowed to take oral medications per primary team -CT/PE on 04/10/2023 confirmed the presence of bilateral pulmonary emboli provoked by surgery. This likely led to her acute hypoxic respiratory failure requiring intubation -CBC daily We will continue to follow.
--- NOTE | 2023-04-11 18:01 | P.PN ---
Subjective Progress Note Date: 04/11/23 Patient was seen for a follow-up. Patient was last seen on 04/03/2023. Please refer to my previous note for details. Subsequently patient has been followed up by Dr. Antoine Levine. Please refer to his notes for details. At present patient was seen in the ICU in bed #264. Patient is laying comfortably in the bed. She states that she is feeling great. Denies any visual symptoms, no headache. Objective - Vital Signs Vital signs: Vital Signs Temp 98.7 F 04/11/23 16:00 Pulse 68 04/11/23 16:00 Resp 18 04/11/23 16:00 BP 160/63 04/09/23 12:00 Pulse Ox 92 L 04/11/23 16:00 FiO2 50 04/11/23 03:59 Intake & Output 04/10/23 04/11/23 04/11/23 18:59 06:59 18:59 Intake Total 927.011 937.402 6484.079 Output Total 2285 775 2500 Balance -1357.989 -173.817 -887.921 Weight 120.6 kg 118.3 kg Intake: IV 106 672 9091 Dextrose 5% in Water 1, 795 360 255 000 ml @ 30 mls/hr IV . Q24H [facility] Rx#:[id number] Dextrose 5% in Water 1, 375 000 ml @ 75 mls/hr IV . [id number] [facility] Rx#:[id number] Invasive Line 9 30 Magnesium Sulfate-D5w Pmx 200 1 gm In Dextrose/Water 1 100ml.bag @ 100 mls/hr IVPB ONCE [facility] Rx#: [id number] Potassium Chloride 10 meq 400 In Water For Injection 1 100ml.bag @ 100 mls/hr IVPB Q1H [facility] Rx#: [id number] Sodium Chloride 0.9% 1, 30 36 12 000 ml @ 20 mls/hr IV . Q24H [facility] Rx#:[id number] Intake, IV Titration 102.011 205.183 340.079 Amount Argatroban 250 mg In 52.011 205.183 340.079 Sodium Chloride 0.9% 250 ml @ 1 MCG/KG/MIN 7.308 mls/hr IV .Q24H [facility] Rx#: [id number] Fluconazole in NaCl,Iso- 50 Osm 100 mg In Saline 1 50ml.bag @ 50 mls/hr IVPB DAILY [facility] Rx#:[id number] Output: Urine 2285 775 2500 Other: Voiding Method Indwelling Catheter Indwelling Catheter Indwelling Catheter # Bowel Movements 1 1 ABP, PAP, CO, CI - Last Documented Arterial Blood Pressure 149/42 - Exam Patient is alert and awake. Speech is slightly hoarse but no aphasia or dysarthria. Patient's pupils are equal, round and reacting to light, face is symmetric. On muscle strength testing, the strength is symmetric in deltoid 2, triceps 3+, biceps 4, orchid grower 4, knee extension 3+4-, ankle dorsiflexion 3 on the right, 2 left. - Labs CBC & Chem 7: 04/11/23 04:00 04/11/23 11:13 Labs: Abnormal Lab Results - Last 24 Hours (Table) 04/10/23 04/10/23 04/11/23 Range/Units 19:42 23:39 00:30 RBC (3.80-5.40) m/uL Hgb (11.4-16.0) gm/dL Hct (34.0-46.0) % RDW (11.5-15.5) % APTT 48.5 H 51.0 H (22.0-30.0) sec Sodium (137-145) mmol/L Chloride (98-107) mmol/L BUN (7-17) mg/dL Glucose (74-99) mg/dL POC Glucose (mg/dL) 171 H (70-110) mg/dL Calcium (8.4-10.2) mg/dL Ionized Calcium Lalo (4.5-5.3) mg/dL 04/11/23 04/11/23 04/11/23 Range/Units 04:00 04:00 04:00 RBC 2.73 L (3.80-5.40) m/uL Hgb 7.9 L (11.4-16.0) gm/dL Hct 25.5 L (34.0-46.0) % RDW 15.9 H (11.5-15.5) % APTT 43.3 H (22.0-30.0) sec Sodium 148 H (137-145) mmol/L Chloride 112 H (98-107) mmol/L BUN 32 H (7-17) mg/dL Glucose 160 H (74-99) mg/dL POC Glucose (mg/dL) (70-110) mg/dL Calcium 11.6 H (8.4-10.2) mg/dL Ionized Calcium Lalo (4.5-5.3) mg/dL 04/11/23 04/11/23 04/11/23 Range/Units 06:05 07:30 10:00 RBC (3.80-5.40) m/uL Hgb (11.4-16.0) gm/dL Hct (34.0-46.0) % RDW (11.5-15.5) % APTT 50.9 H 58.8 H (22.0-30.0) sec Sodium (137-145) mmol/L Chloride (98-107) mmol/L BUN (7-17) mg/dL Glucose (74-99) mg/dL POC Glucose (mg/dL) 182 H (70-110) mg/dL Calcium (8.4-10.2) mg/dL Ionized Calcium Lalo (4.5-5.3) mg/dL 04/11/23 04/11/23 04/11/23 Range/Units 11:09 11:13 12:33 RBC (3.80-5.40) m/uL Hgb (11.4-16.0) gm/dL Hct (34.0-46.0) % RDW (11.5-15.5) % APTT 62.8 H (22.0-30.0) sec Sodium (137-145) mmol/L Chloride (98-107) mmol/L BUN (7-17) mg/dL Glucose (74-99) mg/dL POC Glucose (mg/dL) 217 H (70-110) mg/dL Calcium (8.4-10.2) mg/dL Ionized Calcium Lalo 6.9 H* (4.5-5.3) mg/dL 04/11/23 04/11/23 Range/Units 15:08 15:35 RBC (3.80-5.40) m/uL Hgb (11.4-16.0) gm/dL Hct (34.0-46.0) % RDW (11.5-15.5) % APTT 58.4 H 60.3 H (22.0-30.0) sec Sodium (137-145) mmol/L Chloride (98-107) mmol/L BUN (7-17) mg/dL Glucose (74-99) mg/dL POC Glucose (mg/dL) (70-110) mg/dL Calcium (8.4-10.2) mg/dL Ionized Calcium Lalo (4.5-5.3) mg/dL Assessment and Plan Assessment: * Altered mental status, likely due to toxic metabolic encephalopathy, much improved. * Status post extubation for ventilator-dependent respiratory failure. 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 * Bilateral nonocclusive upper lobe pulmonary emboli. * Acute severe blood loss anemia status post transfusion * Status post acute hypotensive shock from blood loss anemia * Acute kidney injury, resolved * Heparin-induced thrombocytopenia, resolved. Platelets now to 71. * COPD * Diabetes * Hyperlipidemia * Hypertension * Pneumonia * Obesity * X tobacco use * History of right knee arthroplasty in fall of 2021 Plan: * EEG was abnormal, revealed mild to moderate encephalopathy. No epileptiform activity was seen. * CT head revealed no acute intracranial process. Remote right caudate nucleus injury. I personally reviewed CT head, agree with the findings. This abnormality was present in the previous CT head from 04/12/2016 as well. * CT of the cervical spine showed limited exam of the cervical spine secondary to motion. No evidence of cervical spine fracture. Mild multilevel degenerative disc disease. * CTA of the chest showed bilateral nonocclusive upper lobe pulmonary emboli. Cardiomegaly, pulmonary hypertension with pulmonary vascular congestion, correlate for CHF. * Patient currently on Argatroban started since 04/10/2023. Once able to s wallow, can be switched to Eliquis per hematology. * Medical management as per IM, critical care and other specialties * PT OT. * Neurology will follow.
[2023-04-11 18:15] LABS: Glucose,Whole Blood 256 mg/dL (70-110)
[2023-04-11 19:19] LABS: Magnesium 1.9 mg/dL (1.6-2.3); Potassium 3.7 mmol/L (3.5-5.1)
[2023-04-11] MEDS: SENNOSIDES-DOCUSATE SODIUM 1 EACH TAB PO SCH (20:52)
[2023-04-11] MEDS: OLANZapine 5 MG TAB PO SCH (20:56)
[2023-04-11] MEDS: FAMOTIDINE 20 MG/2 ML VIAL IV SCH (20:57)
[2023-04-11] MEDS: INSULIN DETEMIR (LEVEMIR) 100 UNIT/ML SYR SQ SCH (20:57)
[2023-04-11 21:25] LABS: Glucose,Whole Blood 209 mg/dL (70-110)
--- NOTE | 2023-04-11 23:19 | P.PN ---
Subjective very pleasant 72-year-old patient of Dr. Persaud. Chronic stable medical conditions include diabetes, hyperlipidemia, hypertension, primary osteoar thritis, peripheral neuropathy, bilateral breast cancer with bilateral mastectomy, IBS, diverticulosis, chronic low back arthritis. Anxiety depression. Diagnosis of ulcerative colitis for about 15 years. On Asacol 800 mg 3 times a day. In November 2020 did undergo coloscopy by Dr. Moreno. Normal-a ppearing colon. Patient does follow with Dr. Angi Stallings. On an average has about 10 bowel movements a day. Present for years. Patient today was at the [facility]. Troponin went and fell down. Computed tomography scan showing a comminuted fracture distal metaphyseal femur adjacent to the knee processes. Some external rotation. Right lower extremity - brace. Patient's able to get about the house.. No chest pain or palpitation. March 27: Reclining bed. Pain control. Oral intake fair. Pending surgery tomorrow. Discussed with patient has would've the bedside. March 28: Patient seen by me this morning prior to surgery. In bed. Comfortable. Nothing by mouth. Pending surgery this afternoon. March 16: ICU. Yesterday patient underwent right revision total knee replacement the distal femoral replacement age for periprosthetic distal femur fracture. Estimated blood loss was about 600 mL. In the perioperative area patient blood pressure was running low. Patient was transferred to the ICU. Patient did receive 2 units of blood yesterday. Today patient is intubated. FiO2 85% and a PEEP of 10. Drips include we will affect, propofol, Nimbex. Patient started IV heparin for underlying suspicion of pulmonary embolism. Accu-Cheks running high has put on insulin drip. Oral gastric tube. Patient's and 2 daughters at the bedside. Discussed at length. Patient renal function also worsened. Hyperkalemia. Given bicarbonate. Being followed by contact lens fitter, nephrology. A nother unit of blood pending. Hemoglobin this morning 6.7. Patient has increased right-sided heart pressures suspicious for therefore PE/fat embolism. March 30: ICU. Spiked a fever. Advair 250/50 5 and a PEEP of 8. On the ventilator. Sinus rhythm. Drips include Nimbex, propofol, IV heparin, IV insulin, IV norepinephrine. Right leg in a brace. IV ceftriaxone. March 31: ICU. On the ventilator. FiO2 45 PEEP of 5. 2 feeding at 30 mL an hour. Telemetry: Sinus rhythm. Drips include insulin, propofol, epinephrine, IV heparin. IV insulin. Cultures have been negative up to now. Remains in empirically on IV ceftriaxone. April 01: ICU. Patient underwent bronchoscopy by Dr. Babcock. 4 atelectasis on the chest x-ray. No rashes thick secretions removed from the left lower lobe. Likely mucous plugging. Currently on the ventilator with FiO2 100 a PEEP of 8. Sinus rhythm on the telemetry. Drips include IV levo fed, propofol, IV heparin, insulin. Having white secretions. IV ceftriaxone. Discussed with the patient's out of the bedside. Patient still remains critical. April 02: ICU. Overnight, last admin the nurse give medications through the OG tube medications came out through the mouth. 2 feeding was cutback. Started on a smaller rate. Remains on the ventilator. [place] to 65 and a PEEP of 12. Levo fed was discontinued yesterday afternoon. On propofol. IV heparin, IV insulin. April 03: ICU. Remains on the ventilator. FiO2 65 PEEP of 12. Patient is off propofol. Still remained lethargic. Neurology consulted. Also includes IV heparin drip. Family including father and 2 daughters at the bedside. G-tube feeding at goal. Discuss CODE STATUS with the family. Nurse called back later that they have decided to make the patient no code April 04: ICU. On the ventilator. FiO2 50 to PEEP of 12. Having a lot of thick and clear secretions through the ET tube. Remains lethargic. Code EEG done today. On cleviprex, propofol, IV heparin changed over to Lovenox subcu twice a day. and the daughter the bedside. April 05: ICU. Ventilator. FiO2 40 PEEP of 12. Drips include cleviprex and propofol. Secretions through the G-tube. Getting 2 feeding. Discussed with the 2 daughters at the bedside. HEENT negative for seizure activity. Shows encephalopathy. Patient positive for heparin-induced platelet antibody. Consult hematology. April 06: ICU. Ventilator. FiO2 40 and a PEEP of 12. Sliding some secretions. 2 feeding at 29 mL an hour. Getting IV Lasix 40 mg twice a day. On propofol 35. Had a small BM yesterday. Patient is started on argatroban yesterday. Taken off cleviprex April 07: ICU. Ventilator. FiO2 40 and a PEEP of 10. Tube feeding continues. On IV argatroban. IV Zosyn. IV propofol. Dr. Levine spoke to the family about possible tracheostomy. and daughter the bedside. Care was discussed. I trying to make a decision. April 08: ICU. Ventilator. FiO2 40 and a PEEP of 10. On tube feeding. IV argatroban. IV Zosyn. IV propofol. Patient eyes open. Gives impression that she can follow. No limb movements. 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 Edema present. Sinus rhythm. Change Catapres patch over to.2 mg 3 times a day through OG tube 2022 Patient is lying in the bed. Currently in the MICU. Was extubated yesterday. No complaints of chest pain or worsening shortness of breath. Patient is on oxygen via nasal cannula. Patient has been afebrile. Otherwise patient was able to eat breakfast but later patient was having difficulty swallowing. Failed bedside swallow evaluation. WALLPAPER PRINTER was consulted. Otherwise patient is being continued on Lasix 40 mg daily. Laboratory data showed WBC 6.6 hemoglobin 7.7 and platelets 498 Sodium 146 potassium 4.1 chloride 110 bicarb is 33 BUN 46 and creatinine 1.1. Calcium 10.6. 04/10/2023 Patient is currently sitting in the bed. Awake alert and oriented 1-2. No complaints of chest pain or worsening shortness of breath. Patient is on oxygen via nasal cannula. Patient has not CTA chest done today showed bilateral nonocclusive upper lobe pulmonary emboli., Cardiomegaly pulmonary hypertension and pulmonary vascular congestion correlate for CHF. Patient remains on Lasix 40 mg daily. Patient was also started on anticoagulation with argatroban. Oncology and critical care team is on board. Laboratory data showed WBC 6.5 hemoglobin 7.7 and platelets 234 Sodium 147 potassium 4.2 chloride 112 bicarb is 33 BUN 38 and creatinine 0.8. Patient was given D5 water today. current Medications reviewed 04/11/2023 Patient breathing is quiet, she denies chest pain no coughing She has mild pain in her right knee area and patient is somewhat confused therefore will try to avoid narcotic and give topical analgesic instead as when necessary. She is running low-grade temperatures and draped 0.6. No leukocytosis with obesity 6.1. Sodium 148, hemoglobin stable at 7.9 Patient currently on D5 W at 30 mL/h, also on Diflucan and IV Lasix 40 mg daily Several consultants on the case Objective - Vital Signs Vital signs: Vital Signs Temp 98.6 F 04/11/23 12:00 Pulse 73 04/11/23 12:00 Resp 18 04/11/23 12:00 BP 160/63 04/09/23 12:00 Pulse Ox 93 L 04/11/23 12:00 FiO2 50 04/11/23 03:59 Intake & Output 04/10/23 04/11/23 04/11/23 18:59 06:59 18:59 Intake Total 927.011 601.183 794.499 Output Total 2285 775 1950 Balance -1357.989 -173.817 -1155.501 Weight 120.6 kg 118.3 kg Intake: IV 825 396 642 Dextrose 5% in Water 1, 795 360 255 000 ml @ 30 mls/hr IV . Q24H [facility] Rx#:[id number] Dextrose 5% in Water 1, 75 000 ml @ 75 mls/hr IV . [id number] ONE Rx#:[id number] Magnesium Sulfate-D5w Pmx 100 1 gm In Dextrose/Water 1 100ml.bag @ 100 mls/hr IVPB ONCE ONE Rx#: [id number] Potassium Chloride 10 meq 200 In Water For Injection 1 100ml.bag @ 100 mls/hr IVPB Q1H [facility] Rx#: [id number] Sodium Chloride 0.9% 1, 30 36 12 000 ml @ 20 mls/hr IV . Q24H [facility] Rx#:[id number] Intake, IV Titration 102.011 205.183 152.499 Amount Argatroban 250 mg In 52.011 205.183 152.499 Sodium Chloride 0.9% 250 ml @ 1 MCG/KG/MIN 7.308 mls/hr IV .Q24H [facility] Rx#: [id number] Fluconazole in NaCl,Iso- 50 Osm 100 mg In Saline 1 50ml.bag @ 50 mls/hr IVPB DAILY [facility] Rx#:[id number] Output: Urine 2285 775 1950 Other: Voiding Method Indwelling Catheter Indwelling Catheter Indwelling Catheter # Bowel Movements 1 ABP, PAP, CO, CI - Last Documented Arterial Blood Pressure 155/43 - Exam -GENERAL: The patient is alert and oriented x3, calm, not in any acute distress. Morbidly obese. Looks tired and generally weak HEENT: Pupils are round and equally reacting to light. EOMI. No scleral icterus. No conjunctival pallor. Normocephalic, atraumatic. No pharyngeal erythema. No thyromegaly. CARDIOVASCULAR: S1 and S2 present. No murmurs, rubs, or gallops. PULMONARY: Chest is clear to auscultation, no wheezing . no crackles. ABDOMEN: Soft, nontender, nondistended, normoactive bowel sounds. No palpable organomegaly. -MUSCULOSKELETAL: No joint swelling or deformity. Right knee and lower ex tremity surgical incisions closed with Pitressin and place EXTREMITIES: No cyanosis, clubbing, or pedal edema. NEUROLOGICAL: Gross neurological examination did not reveal any focal deficits. SKIN: No rashes. no petechiae. - Labs CBC & Chem 7: 04/11/23 04:00 04/11/23 18:10 Labs: Abnormal Lab Results - Last 24 Hours (Table) 04/10/23 04/10/23 04/10/23 Range/Units 14:16 17:02 17:36 RBC (3.80-5.40) m/uL Hgb (11.4-16.0) gm/dL Hct (34.0-46.0) % RDW (11.5-15.5) % APTT 38.8 H 51.8 H (22.0-30.0) sec Sodium (137-145) mmol/L Chloride (98-107) mmol/L BUN (7-17) mg/dL Glucose (74-99) mg/dL POC Glucose (mg/dL) 186 H (70-110) mg/dL Calcium (8.4-10.2) mg/dL Ionized Calcium Lalo (4.5-5.3) mg/dL 04/10/23 04/10/23 04/11/23 Range/Units 19:42 23:39 00:30 RBC (3.80-5.40) m/uL Hgb (11.4-16.0) gm/dL Hct (34.0-46.0) % RDW (11.5-15.5) % APTT 48.5 H 51.0 H (22.0-30.0) sec Sodium (137-145) mmol/L Chloride (98-107) mmol/L BUN (7-17) mg/dL Glucose (74-99) mg/dL POC Glucose (mg/dL) 171 H (70-110) mg/dL Calcium (8.4-10.2) mg/dL Ionized Calcium Lalo (4.5-5.3) mg/dL 04/11/23 04/11/23 04/11/23 Range/Units 04:00 04:00 04:00 RBC 2.73 L (3.80-5.40) m/uL Hgb 7.9 L (11.4-16.0) gm/dL Hct 25.5 L (34.0-46.0) % RDW 15.9 H (11.5-15.5) % APTT 43.3 H (22.0-30.0) sec Sodium 148 H (137-145) mmol/L Chloride 112 H (98-107) mmol/L BUN 32 H (7-17) mg/dL Glucose 160 H (74-99) mg/dL POC Glucose (mg/dL) (70-110) mg/dL Calcium 11.6 H (8.4-10.2) mg/dL Ionized Calcium Lalo (4.5-5.3) mg/dL 04/11/23 04/11/23 04/11/23 Range/Units 06:05 07:30 10:00 RBC (3.80-5.40) m/uL Hgb (11.4-16.0) gm/dL Hct (34.0-46.0) % RDW (11.5-15.5) % APTT 50.9 H 58.8 H (22.0-30.0) sec Sodium (137-145) mmol/L Chloride (98-107) mmol/L BUN (7-17) mg/dL Glucose (74-99) mg/dL POC Glucose (mg/dL) 182 H (70-110) mg/dL Calcium (8.4-10.2) mg/dL Ionized Calcium Lalo (4.5-5.3) mg/dL 04/11/23 04/11/23 Range/Units 11:09 11:13 RBC (3.80-5.40) m/uL Hgb (11.4-16.0) gm/dL Hct (34.0-46.0) % RDW (11.5-15.5) % APTT (22.0-30.0) sec Sodium (137-145) mmol/L Chloride (98-107) mmol/L BUN (7-17) mg/dL Glucose (74-99) mg/dL POC Glucose (mg/dL) 217 H (70-110) mg/dL Calcium (8.4-10.2) mg/dL Ionized Calcium Lalo 6.9 H* (4.5-5.3) mg/dL Assessment and Plan Assessment: Assessment and plan: -Fall leading to acute Comminuted fracture distal metadiaphyseal femur adjacent to a knee processes. Displacement of the distal fracture fragment from the proximal fracture. March 28:right revision total knee replacement the distal femoral replacement age for periprosthetic distal femur fracture. By Dr. Stack. EBL 600 mL -Metabolic/anoxic encephalopathy. Improvement Neurology consulted. EEG negative for seizure -Mucous plugging with left lower lobe atelectasis. Status post bronchoscopy and removal of sticks tenacious secretions. 04/01/2023 -Acute severe blood loss anemia from surgery Patient received 3 units of blood -Hyperkalemia from acute kidney injury: Better -Thrombocytopenia. Positive heparin-induced antibody IV Argotroban -Acute cor pulmonale with underlying suspicious for fat embolism/pulmonary embolism with acute right ventricle dilatation and moderate to severe TR. -Acute hypotensive shock from blood loss anemia.: Better Receive 3 units of blood. IV levo fed discontinued -Acute kidney injury likely cardiorenal syndrome/ATN. From hypotension and anemia.: Better Follow with nephrology. Admission creatinine was 1.29. Peaked at 2.43. 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 / Amaryl. Levemir to 52 units at night -Hyperlipidemia Lipitor, TriCor -Anxiety not otherwise specified Klonopin 0.5 mg 3 times a day -Depression Zyprexa 5 mg daily at bedtime, Prozac 40 mg a day -Hyperuricemia Allopurinol -Essential hypertension, -Acute hepatitis likely ischemic, improvement -Primary osteoarthritis Pain medications when necessary -Chronic kidney disease stage III from diabetic nephropathy and hypertensive nephrosclerosis Follow renal function -DO NOT RESUSCITATE
[2023-04-12 01:08] LABS: Glucose,Whole Blood 207 mg/dL (70-110)
[2023-04-12] MEDS: INSULIN ASPART (NovoLOG) 100 UNIT/ML VIAL SQ SCH ×5 (01:10→21:28)
[2023-04-12] MEDS: ARGATROBAN 250 MG in SODIUM CHLORIDE 0.9% 250 ML IV SCH ×2 (01:39→06:54)
[2023-04-12 05:22] LABS: HCT 25.4 % (34.0-46.0); HGB 7.9 gm/dL (11.4-16.0); Hypochromasia Marked; MCH 28.8 pg (25.0-35.0); MCHC 30.9 g/dL (31.0-37.0); MCV 93.2 fL (80.0-100.0); Mean Platelet Volume 9.1; Platelet Count 313 k/uL (150-450); RBC 2.73 m/uL (3.80-5.40); RDW 15.7 % (11.5-15.5); WBC 6.7 k/uL (3.8-10.6)
[2023-04-12 06:24] LABS: Glucose,Whole Blood 190 mg/dL (70-110)
[2023-04-12 06:27] LABS: African American GFR (CKD) >90 (>60 ml/min/1.73 sqM); Anion Gap 5 mmol/L; Blood Urea Nitrogen 30 mg/dL (7-17); Calcium 10.6 mg/dL (8.4-10.2); Carbon Dioxide 30 mmol/L (22-30); Chloride 110 mmol/L (98-107); Glucose 152 mg/dL (74-99); Magnesium 1.8 mg/dL (1.6-2.3); Non-African American GFR(CKD) 85 (>60 ml/min/1.73 sqM); Potassium 3.7 mmol/L (3.5-5.1); Sodium 145 mmol/L (137-145)
[2023-04-12] MEDS ORDERED: Magnesium Replacement Protocol 1 EACH MISC MISCELLANE PRN (06:43)
[2023-04-12] MEDS: POTASSIUM CHLORIDE 10 MEQ in WATER FOR INJECTION 1 100ML.BAG IVPB SCH ×2 (06:53→08:14)
[2023-04-12] MEDS ORDERED: MAGNESIUM SULFATE-D5W PMX 1 GM in DEXTROSE/WATER 1 100ML.BAG IVPB ONE (08:00)
[2023-04-12] MEDS: SENNOSIDES 8.6 MG TAB PO SCH ×2 (08:08→21:29)
--- NOTE | 2023-04-12 08:13 | XR ---
EXAMINATION TYPE: XR chest 1V DATE OF EXAM: 04/12/2023 COMPARISON: 04/11/2023 HISTORY: Shortness of breath TECHNIQUE: Single frontal view of the chest is obtained. FINDINGS: Left lower lobe infiltrate and small effusion stable. Left-sided central catheters tip ove rlying the cavoatrial junction. Heart size normal with atherosclerotic change aorta. No overt failure or pneumothorax. IMPRESSION: Stable left lower lobe infiltrate and small effusion.
[2023-04-12] MEDS: NYSTATIN 100,000 UNIT/ML SUSP 500,000 UNIT/5 ML CUP PO SCH ×4 (08:14→21:29)
[2023-04-12] MEDS: FLUoxetine HCL 20 MG CAP PO SCH (08:14)
[2023-04-12] MEDS: FUROSEMIDE 10 MG/ML 4 ML VIAL IV SCH (08:14)
[2023-04-12] MEDS: METOPROLOL TARTRATE 25 MG TAB PO SCH ×2 (08:15→21:29)
[2023-04-12] MEDS: CINACALCET 30 MG TAB PO SCH (08:15)
[2023-04-12] MEDS: amLODIPine 10 MG TAB PO SCH (08:15)
[2023-04-12] MEDS: FERROUS SULFATE 325 MG TAB PO SCH (08:15)
[2023-04-12] MEDS: FLUCONAZOLE IN NACL,ISO-OSM 100 MG in SALINE 1 50ML.BAG IVPB SCH (09:04)
--- NOTE | 2023-04-12 09:18 | P.PN ---
Subjective Progress Note Date: 04/12/23 On today's evaluation of 04/12/2023, the patient is awake and alert and she is currently on oxygen at 5 L nasal cannula. She remains on IV fluids and she is currently on D5W at 75 mL an hour. She is also on Agratoban 6 mcg/kg/m. She is doing well. Lower extremity edema is improved. No signs of any acute bleeding. Hemoglobin stable at 7.9. The white cell count is stable at 6.7. Sodium level is down to 145 and a BUN is at 30 with a creatinine of 0.7. Her calcium level was elevated at 6.6 and the patient was receiving Sensipar an outpatient basis if she was given calcitonin during the current hospital stay and ionized calcium came down to 6.4. Nephrology is on the case in that regard. She was able to pass his swallow test and the patient will be switched to oral anticoagulants today and she was started on Eliquis. She is weak. She is on no pressors for now. She is postop day #11 and she is using the BiPAP overnight at a pressures of 12/5 cm of water with an FiO2 of 50%. She is a DNR/DNI CODE STATUS. Objective - Vital Signs Vital signs: Vital Signs Temp 98.7 F 04/12/23 08:00 Pulse 69 04/12/23 09:00 Resp 19 04/12/23 09:00 BP 160/63 04/12/23 05:00 Pulse Ox 96 04/12/23 09:00 FiO2 50 04/12/23 04:34 Intake & Output 04/11/23 04/12/23 04/12/23 18:59 06:59 18:59 Intake Total 5842.548 4493.404 350 Output Total 2700 545 145 Balance -594.124 1719.404 205 Intake: IV 1443 1178 175 Dextrose 5% in Water 1, 255 000 ml @ 30 mls/hr IV . Q24H [facility] Rx#:[id number] Dextrose 5% in Water 1, 525 75 000 ml @ 75 mls/hr IV . [id number] ONE Rx#:[id number] Dextrose 5% in Water 1, 900 75 000 ml @ 75 mls/hr IV . [id number] [facility] Rx#:[id number] Invasive Line 9 30 Magnesium Sulfate-D5w Pmx 200 1 gm In Dextrose/Water 1 100ml.bag @ 100 mls/hr IVPB ONCE [facility] Rx#: [id number] Potassium Chloride 10 meq 400 In Water For Injection 1 100ml.bag @ 100 mls/hr IVPB Q1H [facility] Rx#: [id number] Potassium Chloride 10 meq 200 100 In Water For Injection 1 100ml.bag @ 100 mls/hr IVPB Q1H [facility] Rx#: [id number] Sodium Chloride 0.9% 1, 33 3 000 ml @ 20 mls/hr IV . Q24H [facility] Rx#:[id number] Intake, IV Titration 446.598 506.404 100 Amount Argatroban 250 mg In 446.598 506.404 Sodium Chloride 0.9% 250 ml @ 1 MCG/KG/MIN 7.308 mls/hr IV .Q24H [facility] Rx#: [id number] Fluconazole in NaCl,Iso- 100 Osm 100 mg In Saline 1 50ml.bag @ 50 mls/hr IVPB DAILY [facility] Rx#:[id number] Lipid 75 Dextrose 5% in Water 1, 75 000 ml @ 75 mls/hr IV . [id number] [facility] Rx#:[id number] Output: Urine 2700 545 145 Other: Voiding Method Indwelling Catheter Indwelling Catheter Indwelling Catheter # Bowel Movements 1 ABP, PAP, CO, CI - Last Documented Arterial Blood Pressure 117/35 - Exam No acute distress, awake, verbal, on 5 L oxygen. Saturations are 96%. HEENT examination is grossly unremarkable. Neck supple. Full range of motion. No adenopathy thyromegaly or neck vein distention. Cardiovascular examination reveals regular rhythm rate. S1-S2 normal. No S3 or S4. No discernible murmur noted. Heart sounds are distant. Lungs reveal scattered bilateral rhonchi. No wheezes or crackles. Breath sounds equal. Abdomen obese, with bowel sounds. Extremities are intact. No cyanosis or clubbing. The edema in the lower extremities have improved considerably and the patient has trace edema lower extremities. Surgical one-sided dry clean and intact in the right lower extremity. Skin is without rash or lesion. Neurologic examination is brief but nonfocal. - Labs CBC & Chem 7: 04/12/23 05:00 04/12/23 05:00 Labs: Abnormal Lab Results - Last 24 Hours (Table) 04/11/23 04/11/23 04/11/23 Range/Units 10:00 11:09 11:13 RBC (3.80-5.40) m/uL Hgb (11.4-16.0) gm/dL Hct (34.0-46.0) % MCHC (31.0-37.0) g/dL RDW (11.5-15.5) % APTT 58.8 H (22.0-30.0) sec Chloride (98-107) mmol/L BUN (7-17) mg/dL Glucose (74-99) mg/dL POC Glucose (mg/dL) 217 H (70-110) mg/dL Calcium (8.4-10.2) mg/dL Ionized Calcium Lalo 6.9 H* (4.5-5.3) mg/dL 04/11/23 04/11/23 04/11/23 Range/Units 12:33 15:08 15:35 RBC (3.80-5.40) m/uL Hgb (11.4-16.0) gm/dL Hct (34.0-46.0) % MCHC (31.0-37.0) g/dL RDW (11.5-15.5) % APTT 62.8 H 58.4 H 60.3 H (22.0-30.0) sec Chloride (98-107) mmol/L BUN (7-17) mg/dL Glucose (74-99) mg/dL POC Glucose (mg/dL) (70-110) mg/dL Calcium (8.4-10.2) mg/dL Ionized Calcium Lalo (4.5-5.3) mg/dL 04/11/23 04/11/23 04/11/23 Range/Units 18:10 18:10 18:14 RBC (3.80-5.40) m/uL Hgb (11.4-16.0) gm/dL Hct (34.0-46.0) % MCHC (31.0-37.0) g/dL RDW (11.5-15.5) % APTT 62.2 H (22.0-30.0) sec Chloride (98-107) mmol/L BUN (7-17) mg/dL Glucose (74-99) mg/dL POC Glucose (mg/dL) 256 H (70-110) mg/dL Calcium (8.4-10.2) mg/dL Ionized Calcium Lalo 6.6 H* (4.5-5.3) mg/dL 04/11/23 04/11/23 04/12/23 Range/Units 21:18 21:27 01:04 RBC (3.80-5.40) m/uL Hgb (11.4-16.0) gm/dL Hct (34.0-46.0) % MCHC (31.0-37.0) g/dL RDW (11.5-15.5) % APTT 69.3 H (22.0-30.0) sec Chloride (98-107) mmol/L BUN (7-17) mg/dL Glucose (74-99) mg/dL POC Glucose (mg/dL) 209 H 207 H (70-110) mg/dL Calcium (8.4-10.2) mg/dL Ionized Calcium Lalo (4.5-5.3) mg/dL 04/12/23 04/12/23 04/12/23 Range/Units 05:00 05:00 05:00 RBC 2.73 L (3.80-5.40) m/uL Hgb 7.9 L (11.4-16.0) gm/dL Hct 25.4 L (34.0-46.0) % MCHC 30.9 L (31.0-37.0) g/dL RDW 15.7 H (11.5-15.5) % APTT 66.9 H (22.0-30.0) sec Chloride 110 H (98-107) mmol/L BUN 30 H (7-17) mg/dL Glucose 152 H (74-99) mg/dL POC Glucose (mg/dL) (70-110) mg/dL Calcium 10.6 H (8.4-10.2) mg/dL Ionized Calcium Lalo (4.5-5.3) mg/dL 04/12/23 04/12/23 Range/Units 05:00 06:22 RBC (3.80-5.40) m/uL Hgb (11.4-16.0) gm/dL Hct (34.0-46.0) % MCHC (31.0-37.0) g/dL RDW (11.5-15.5) % APTT (22.0-30.0) sec Chloride (98-107) mmol/L BUN (7-17) mg/dL Glucose (74-99) mg/dL POC Glucose (mg/dL) 190 H (70-110) mg/dL Calcium (8.4-10.2) mg/dL Ionized Calcium Lalo 6.4 H* (4.5-5.3) mg/dL Assessment and Plan Plan: Acute hypoxemic and hypercapnic respiratory failure, secondary to pulmonary embolism. The patient will receive oral anticoagulants. The patient was being treated with agratoban due to an underlying heparin-induced, thrombocytopenia. The platelet count currently is at 313. Status post intubation and mechanical ventilation, beginning on March 28, with extubation on 04/08/2023. Postop day #15, status post repair of comminuted right femur fracture. 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 Hypotension, which may relate to PE, or FES, resolved. Acute kidney injury, recovered and the renal function is back to normal Acute blood loss anemia. Hemoglobin is stable Lactic acidemia secondary to hypotension and hypoperfusion. Shock liver. Previous right total knee replacement. Morbid obesity. History of obstructive sleep apnea syndrome. Previous history of tobacco use. Left lower lobe atelectasis versus pneumonia. Status post bronchoscopy and BAL, Mental status changes, likely related to metabolic encephalopathy. The patient's mental status improved and the patient is able to pass a swallow evaluation Plan: Start the patient on anticoagulation with Eliquis 5 mg by mouth twice a day and discontinue the agratoban Monitor her platelet count and hematologic profile Provide the patient incentive spirometer Wean down FiO2 as tolerated to maintain a saturation above 90% In terms of her IV fluids she is currently on D5 water and nephrology increase the rate to 50 mL an hour and the patient is receiving Lasix doses 40 mg IV every 24 hours and she has been in a negative fluid balance Monitor the calcium level Involved physical therapy We'll continue to follow
[2023-04-12] MEDS: IPRATROPIUM-ALBUTEROL 3 ML NEB INHALATION SCH ×4 (09:20→20:13)
--- NOTE | 2023-04-12 10:01 | P.PN ---
Subjective Patient is seen in follow-up for acute kidney injury on chronic kidney disease. Renal function at baseline. Awake and alert. Nonoliguric. Calcium level trending down. Past swallow eval this morning. Currently on D5W. Vital signs are stable. General: Resting in bed. HEENT: Nasal cannula. LUNGS: No audible rhonchi or wheezes. HEART: Regular rate and rhythm. ABDOMEN: Soft, no distention. EXTREMITITES: Trace edema. No drainage noted. Objective - Vital Signs Vital signs: Vital Signs Temp 98.7 F 04/12/23 08:00 Pulse 65 04/12/23 09:28 Resp 19 04/12/23 09:00 BP 160/63 04/12/23 05:00 Pulse Ox 97 04/12/23 09:18 FiO2 50 04/12/23 04:34 Intake & Output 04/11/23 04/12/23 04/12/23 18:59 06:59 18:59 Intake Total 0535.774 9387.404 350 Output Total 2700 545 145 Balance -201.572 6248.404 205 Intake: IV 1443 1178 175 Dextrose 5% in Water 1, 255 000 ml @ 30 mls/hr IV . Q24H [facility] Rx#:[id number] Dextrose 5% in Water 1, 525 75 000 ml @ 75 mls/hr IV . [id number] [facility] Rx#:[id number] Dextrose 5% in Water 1, 900 75 000 ml @ 75 mls/hr IV . [id number] [facility] Rx#:[id number] Invasive Line 9 30 Magnesium Sulfate-D5w Pmx 200 1 gm In Dextrose/Water 1 100ml.bag @ 100 mls/hr IVPB ONCE [facility] Rx#: [id number] Potassium Chloride 10 meq 400 In Water For Injection 1 100ml.bag @ 100 mls/hr IVPB Q1H [facility] Rx#: [id number] Potassium Chloride 10 meq 200 100 In Water For Injection 1 100ml.bag @ 100 mls/hr IVPB Q1H [facility] Rx#: [id number] Sodium Chloride 0.9% 1, 33 3 000 ml @ 20 mls/hr IV . Q24H [facility] Rx#:[id number] Intake, IV Titration 446.598 506.404 100 Amount Argatroban 250 mg In 446.598 506.404 Sodium Chloride 0.9% 250 ml @ 1 MCG/KG/MIN 7.308 mls/hr IV .Q24H [facility] Rx#: [id number] Fluconazole in NaCl,Iso- 100 Osm 100 mg In Saline 1 50ml.bag @ 50 mls/hr IVPB DAILY [facility] Rx#:[id number] Lipid 75 Dextrose 5% in Water 1, 75 000 ml @ 75 mls/hr IV . [id number] [facility] Rx#:[id number] Output: Urine 2700 545 145 Other: Voiding Method Indwelling Catheter Indwelling Catheter Indwelling Catheter # Bowel Movements 1 ABP, PAP, CO, CI - Last Documented Arterial Blood Pressure 117/35 - Labs CBC & Chem 7: 04/12/23 05:00 04/12/23 05:00 Labs: Abnormal Lab Results - Last 24 Hours (Table) 04/11/23 04/11/23 04/11/23 Range/Units 10:00 11:09 11:13 RBC (3.80-5.40) m/uL Hgb (11.4-16.0) gm/dL Hct (34.0-46.0) % MCHC (31.0-37.0) g/dL RDW (11.5-15.5) % APTT 58.8 H (22.0-30.0) sec Chloride (98-107) mmol/L BUN (7-17) mg/dL Glucose (74-99) mg/dL POC Glucose (mg/dL) 217 H (70-110) mg/dL Calcium (8.4-10.2) mg/dL Ionized Calcium Lalo 6.9 H* (4.5-5.3) mg/dL 04/11/23 04/11/23 04/11/23 Range/Units 12:33 15:08 15:35 RBC (3.80-5.40) m/uL Hgb (11.4-16.0) gm/dL Hct (34.0-46.0) % MCHC (31.0-37.0) g/dL RDW (11.5-15.5) % APTT 62.8 H 58.4 H 60.3 H (22.0-30.0) sec Chloride (98-107) mmol/L BUN (7-17) mg/dL Glucose (74-99) mg/dL POC Glucose (mg/dL) (70-110) mg/dL Calcium (8.4-10.2) mg/dL Ionized Calcium Lalo (4.5-5.3) mg/dL 04/11/23 04/11/23 04/11/23 Range/Units 18:10 18:10 18:14 RBC (3.80-5.40) m/uL Hgb (11.4-16.0) gm/dL Hct (34.0-46.0) % MCHC (31.0-37.0) g/dL RDW (11.5-15.5) % APTT 62.2 H (22.0-30.0) sec Chloride (98-107) mmol/L BUN (7-17) mg/dL Glucose (74-99) mg/dL POC Glucose (mg/dL) 256 H (70-110) mg/dL Calcium (8.4-10.2) mg/dL Ionized Calcium Lalo 6.6 H* (4.5-5.3) mg/dL 04/11/23 04/11/23 04/12/23 Range/Units 21:18 21:27 01:04 RBC (3.80-5.40) m/uL Hgb (11.4-16.0) gm/dL Hct (34.0-46.0) % MCHC (31.0-37.0) g/dL RDW (11.5-15.5) % APTT 69.3 H (22.0-30.0) sec Chloride (98-107) mmol/L BUN (7-17) mg/dL Glucose (74-99) mg/dL POC Glucose (mg/dL) 209 H 207 H (70-110) mg/dL Calcium (8.4-10.2) mg/dL Ionized Calcium Lalo (4.5-5.3) mg/dL 04/12/23 04/12/23 04/12/23 Range/Units 05:00 05:00 05:00 RBC 2.73 L (3.80-5.40) m/uL Hgb 7.9 L (11.4-16.0) gm/dL Hct 25.4 L (34.0-46.0) % MCHC 30.9 L (31.0-37.0) g/dL RDW 15.7 H (11.5-15.5) % APTT 66.9 H (22.0-30.0) sec Chloride 110 H (98-107) mmol/L BUN 30 H (7-17) mg/dL Glucose 152 H (74-99) mg/dL POC Glucose (mg/dL) (70-110) mg/dL Calcium 10.6 H (8.4-10.2) mg/dL Ionized Calcium Lalo (4.5-5.3) mg/dL 04/12/23 04/12/23 Range/Units 05:00 06:22 RBC (3.80-5.40) m/uL Hgb (11.4-16.0) gm/dL Hct (34.0-46.0) % MCHC (31.0-37.0) g/dL RDW (11.5-15.5) % APTT (22.0-30.0) sec Chloride (98-107) mmol/L BUN (7-17) mg/dL Glucose (74-99) mg/dL POC Glucose (mg/dL) 190 H (70-110) mg/dL Calcium (8.4-10.2) mg/dL Ionized Calcium Lalo 6.4 H* (4.5-5.3) mg/dL Assessment and Plan Plan: Assessment: 1. Acute kidney injury secondary to hemodynamic ATN/shock. Creatinine 1.29 on admission and peaked at 2.43 this admission -0.71 today. Nonoliguric. No hydronephrosis noted on kidney ultrasound. Left kidney not visualized. 2. Chronic kidney disease stage IIIa with baseline creatinine 1-1.2 secondary to nephrosclerosis/diabetic kidney disease. 3. History of hypercalcemia maintained on Sensipar. Status post calcitonin 04/11/2023. Sensipar resumed today. Calcium level trending down. PTH 70.9. Parathyroid scan negative in the past. 4. Acute blood loss anemia status post blood transfusions this admission. Hemoglobin 7.9 today. 5. Hyperkalemia secondary to acute kidney injury, hyperglycemia, acidosis and acute blood loss. Improved with medical management. 6. Status post knee revision 03/28/2023. 7. Diabetes mellitus. 8. Questionable PE with severe pulmonary hypertension and moderate to severe tricuspid regurgitation. Currently on argatroban drip. 9. Lower extremity edema. Improved with diuresis. 10. Hypernatremia from lack of oral water intake and free water diuresis. Improved with D5W. Plan: Decrease rate of D5W to 50 mL an hour. Encouraged oral intake, including free water. Maintain IV Lasix. Continue to monitor renal function and urine output. Avoid nephrotoxins. Check further workup for hypercalcemia.
[2023-04-12] MEDS: APIXABAN 5 MG TAB PO SCH ×2 (10:35→21:28)
[2023-04-12 11:17] LABS: Glucose,Whole Blood 201 mg/dL (70-110)
[2023-04-12] MEDS: DEXTROSE 5% IN WATER 1,000 ML IV SCH (12:02)
--- NOTE | 2023-04-12 12:17 | P.PN ---
Subjective Progress Note Date: 04/12/23 Principal diagnosis: HIT antibody positive At today's visit patient is A&O x 3. She reports feeling well. Breathing is even and unlabored. Denies shortness of breath. Continues on argatroban. Patient passed swallow study today, will transition to eliquis today. Platelets stable, 313,000. No reported episodes of bleeding. Objective - Vital Signs Vital signs: Vital Signs Temp 98.7 F 04/12/23 08:00 Pulse 67 04/12/23 11:00 Resp 18 04/12/23 11:00 BP 124/46 04/12/23 11:00 Pulse Ox 94 L 04/12/23 11:00 FiO2 50 04/12/23 04:34 Intake & Output 04/11/23 04/12/23 04/12/23 18:59 06:59 18:59 Intake Total 4936.051 9893.404 450 Output Total 2700 545 425 Balance -833.283 0708.404 25 Intake: IV 1443 1178 275 Dextrose 5% in Water 1, 255 000 ml @ 30 mls/hr IV . Q24H [facility] Rx#:[id number] Dextrose 5% in Water 1, 900 175 000 ml @ 50 mls/hr IV . Q20H [facility] Rx#:[id number] Dextrose 5% in Water 1, 525 75 000 ml @ 75 mls/hr IV . [id number] [facility] Rx#:[id number] Invasive Line 9 30 Magnesium Sulfate-D5w Pmx 200 1 gm In Dextrose/Water 1 100ml.bag @ 100 mls/hr IVPB ONCE [facility] Rx#: [id number] Potassium Chloride 10 meq 400 In Water For Injection 1 100ml.bag @ 100 mls/hr IVPB Q1H [facility] Rx#: [id number] Potassium Chloride 10 meq 200 100 In Water For Injection 1 100ml.bag @ 100 mls/hr IVPB Q1H [facility] Rx#: [id number] Sodium Chloride 0.9% 1, 33 3 000 ml @ 20 mls/hr IV . Q24H [facility] Rx#:[id number] Intake, IV Titration 446.598 506.404 100 Amount Argatroban 250 mg In 446.598 506.404 Sodium Chloride 0.9% 250 ml @ 1 MCG/KG/MIN 7.308 mls/hr IV .Q24H [facility] Rx#: [id number] Fluconazole in NaCl,Iso- 100 Osm 100 mg In Saline 1 50ml.bag @ 50 mls/hr IVPB DAILY [facility] Rx#:[id number] Lipid 75 Dextrose 5% in Water 1, 75 000 ml @ 50 mls/hr IV . Q20H [facility] Rx#:[id number] Output: Urine 2700 545 425 Other: Voiding Method Indwelling Catheter Indwelling Catheter Indwelling Catheter # Bowel Movements 1 ABP, PAP, CO, CI - Last Documented Arterial Blood Pressure 147/45 - Constitutional General appearance: Present: no acute distress, obese - EENT Eyes: Present: anicteric sclerae, EOMI ENT: Present: hearing grossly normal - Respiratory Details: breathing is even and unlabored - Cardiovascular Details: skin warm and dry - Integumentary Integumentary: Present: pale - Neurologic Neurologic Comment(s): grossly intact - Musculoskeletal Musculoskeletal: Present: generalized weakness - Psychiatric Psychiatric: Present: A&O x's 3, appropriate affect, intact judgment & insight - Labs CBC & Chem 7: 04/12/23 05:00 04/12/23 05:00 Labs: Abnormal Lab Results - Last 24 Hours (Table) 04/11/23 04/11/23 04/11/23 Range/Units 11:13 12:33 15:08 RBC (3.80-5.40) m/uL Hgb (11.4-16.0) gm/dL Hct (34.0-46.0) % MCHC (31.0-37.0) g/dL RDW (11.5-15.5) % APTT 62.8 H 58.4 H (22.0-30.0) sec Chloride (98-107) mmol/L BUN (7-17) mg/dL Glucose (74-99) mg/dL POC Glucose (mg/dL) (70-110) mg/dL Calcium (8.4-10.2) mg/dL Ionized Calcium Lalo 6.9 H* (4.5-5.3) mg/dL 04/11/23 04/11/23 04/11/23 Range/Units 15:35 18:10 18:10 RBC (3.80-5.40) m/uL Hgb (11.4-16.0) gm/dL Hct (34.0-46.0) % MCHC (31.0-37.0) g/dL RDW (11.5-15.5) % APTT 60.3 H 62.2 H (22.0-30.0) sec Chloride (98-107) mmol/L BUN (7-17) mg/dL Glucose (74-99) mg/dL POC Glucose (mg/dL) (70-110) mg/dL Calcium (8.4-10.2) mg/dL Ionized Calcium Lalo 6.6 H* (4.5-5.3) mg/dL 04/11/23 04/11/23 04/11/23 Range/Units 18:14 21:18 21:27 RBC (3.80-5.40) m/uL Hgb (11.4-16.0) gm/dL Hct (34.0-46.0) % MCHC (31.0-37.0) g/dL RDW (11.5-15.5) % APTT 69.3 H (22.0-30.0) sec Chloride (98-107) mmol/L BUN (7-17) mg/dL Glucose (74-99) mg/dL POC Glucose (mg/dL) 256 H 209 H (70-110) mg/dL Calcium (8.4-10.2) mg/dL Ionized Calcium Lalo (4.5-5.3) mg/dL 04/12/23 04/12/23 04/12/23 Range/Units 01:04 05:00 05:00 RBC 2.73 L (3.80-5.40) m/uL Hgb 7.9 L (11.4-16.0) gm/dL Hct 25.4 L (34.0-46.0) % MCHC 30.9 L (31.0-37.0) g/dL RDW 15.7 H (11.5-15.5) % APTT (22.0-30.0) sec Chloride 110 H (98-107) mmol/L BUN 30 H (7-17) mg/dL Glucose 152 H (74-99) mg/dL POC Glucose (mg/dL) 207 H (70-110) mg/dL Calcium 10.6 H (8.4-10.2) mg/dL Ionized Calcium Lalo (4.5-5.3) mg/dL 04/12/23 04/12/23 04/12/23 Range/Units 05:00 05:00 06:22 RBC (3.80-5.40) m/uL Hgb (11.4-16.0) gm/dL Hct (34.0-46.0) % MCHC (31.0-37.0) g/dL RDW (11.5-15.5) % APTT 66.9 H (22.0-30.0) sec Chloride (98-107) mmol/L BUN (7-17) mg/dL Glucose (74-99) mg/dL POC Glucose (mg/dL) 190 H (70-110) mg/dL Calcium (8.4-10.2) mg/dL Ionized Calcium Lalo 6.4 H* (4.5-5.3) mg/dL 04/12/23 Range/Units 11:15 RBC (3.80-5.40) m/uL Hgb (11.4-16.0) gm/dL Hct (34.0-46.0) % MCHC (31.0-37.0) g/dL RDW (11.5-15.5) % APTT (22.0-30.0) sec Chloride (98-107) mmol/L BUN (7-17) mg/dL Glucose (74-99) mg/dL POC Glucose (mg/dL) 201 H (70-110) mg/dL Calcium (8.4-10.2) mg/dL Ionized Calcium Lalo (4.5-5.3) mg/dL Assessment and Plan (1) HIT (heparin-induced thrombocytopenia) Current Visit: Yes Status: Acute Code(s): D75.829 - HEPARIN-INDUCED THROMBOCYTOPENIA, UNSPECIFIED SNOMED Code(s): 64654846 (2) Fracture of distal end of right femur Current Visit: Yes Status: Acute Code(s): S72.401A - UNSP FRACTURE OF LOWER END OF RIGHT FEMUR, INIT FOR CLOS FX SNOMED Code(s): 436714916 Plan: HIT: -HIT antibody positive, 2.1, with 89% probability of JOEL positivity. Patient was started heparin for suspected PE s/p surgery and platelets were noted to decrease 5 days after initiation. Platelets were in the 250,000-400,000 during admission prior to drop. Platelets normal at 313,000. No reported episodes of bleeding -Decrease in platelets 5-10 days after initiation of heparin, with platelets in the 50-80K range is consistent with HIT -Serotinin release assay pending. DIC workup negative. -Heparin has been discontinued and patient was started on argatroban. Argatroban was discontinued on 04/08/28 given she was extubated, but unfortunately failed swallow study and was not restarted on any kind of therapeutic anticoagulation -Argatroban drip restarted on 04/10/2023. swallow study passed today, [facility] -CT/PE on 04/10/2023 confirmed the presence of bilateral pulmonary emboli provoked by surgery. This likely led to her acute hypoxic respiratory failure requiring intubation -CBC daily We will continue to follow. attests: I have performed H&P and developed impression and plan of care for patient, discussed with dictator. I agree with dictated note, document a a scribe
[2023-04-12] MEDS ORDERED: ARGATROBAN 250 MG in SODIUM CHLORIDE 0.9% 250 ML IV SCH (12:30)
--- NOTE | 2023-04-12 15:18 | P.PN ---
Subjective Progress Note Date: 04/12/23 04/12/2023: Patient was seen for a follow-up. Patient's daughter was also present today. Patient is doing much better, she has passed swallow studies. She has received some oral liquid sips and feels much better. Denies headache, offers no complaints. Patient is reclining comfortably in her bed. Her strength is slowly getting better. 04/11/2023: Patient was seen for a follow-up. Patient was last seen on 04/03/2023. Please refer to my previous note for details. Subsequently patient has been followed up by Dr. Antoine Levine. Please refer to his notes for details. At present patient was seen in the ICU in bed #264. Patient is laying comfortably in the bed. She states that she is feeling great. Denies any visual symptoms, no headache. Objective - Vital Signs Vital signs: Vital Signs Temp 98.7 F 04/12/23 08:00 Pulse 68 04/12/23 12:12 Resp 10 L 04/12/23 12:12 BP 124/46 04/12/23 11:00 Pulse Ox 94 L 04/12/23 11:00 FiO2 50 04/12/23 04:34 Intake & Output 04/11/23 04/12/23 04/12/23 18:59 06:59 18:59 Intake Total 6156.434 3133.404 450 Output Total 2700 545 425 Balance -199.468 9657.404 25 Intake: IV 1443 1178 275 Dextrose 5% in Water 1, 255 000 ml @ 30 mls/hr IV . Q24H [facility] Rx#:[id number] Dextrose 5% in Water 1, 900 175 000 ml @ 50 mls/hr IV . Q20H [facility] Rx#:[id number] Dextrose 5% in Water 1, 525 75 000 ml @ 75 mls/hr IV . [id number] [facility] Rx#:[id number] Invasive Line 9 30 Magnesium Sulfate-D5w Pmx 200 1 gm In Dextrose/Water 1 100ml.bag @ 100 mls/hr IVPB ONCE [facility] Rx#: [id number] Potassium Chloride 10 meq 400 In Water For Injection 1 100ml.bag @ 100 mls/hr IVPB Q1H [facility] Rx#: [id number] Potassium Chloride 10 meq 200 100 In Water For Injection 1 100ml.bag @ 100 mls/hr IVPB Q1H [facility] Rx#: [id number] Sodium Chloride 0.9% 1, 33 3 000 ml @ 20 mls/hr IV . Q24H [facility] Rx#:[id number] Intake, IV Titration 446.598 506.404 100 Amount Argatroban 250 mg In 446.598 506.404 Sodium Chloride 0.9% 250 ml @ 1 MCG/KG/MIN 7.308 mls/hr IV .Q24H [facility] Rx#: [id number] Fluconazole in NaCl,Iso- 100 Osm 100 mg In Saline 1 50ml.bag @ 50 mls/hr IVPB DAILY [facility] Rx#:[id number] Lipid 75 Dextrose 5% in Water 1, 75 000 ml @ 50 mls/hr IV . Q20H [facility] Rx#:[id number] Output: Urine 2700 545 425 Other: Voiding Method Indwelling Catheter Indwelling Catheter Indwelling Catheter # Bowel Movements 1 ABP, PAP, CO, CI - Last Documented Arterial Blood Pressure 147/45 - Exam Patient is alert and awake. Speech is slightly hoarse but no aphasia or dysarthria. Patient states that she lives in [facility], could not tell what city she is currently in. She states it is April and the year is 2003. Patient's pupils are equal, round and reacting to light, face is symmetric. Visual sanchez are full. On muscle strength testing, the strength has improved in the left arm, but the right is still very weak. She is able to lift her left arm off the bed and give minimal resistance. She is able to flex the biceps on the left side, but not on the right. The right arm has only some twitching, trembling when she tries to activate. Her knee extension 3+4-, ankle dorsiflexion 3 on the right, 2 left. - Labs CBC & Chem 7: 04/12/23 05:00 04/12/23 05:00 Labs: Abnormal Lab Results - Last 24 Hours (Table) 04/11/23 04/11/23 04/11/23 Range/Units 15:08 15:35 18:10 RBC (3.80-5.40) m/uL Hgb (11.4-16.0) gm/dL Hct (34.0-46.0) % MCHC (31.0-37.0) g/dL RDW (11.5-15.5) % APTT 58.4 H 60.3 H 62.2 H (22.0-30.0) sec Chloride (98-107) mmol/L BUN (7-17) mg/dL Glucose (74-99) mg/dL POC Glucose (mg/dL) (70-110) mg/dL Calcium (8.4-10.2) mg/dL Ionized Calcium Lalo (4.5-5.3) mg/dL 04/11/23 04/11/23 04/11/23 Range/Units 18:10 18:14 21:18 RBC (3.80-5.40) m/uL Hgb (11.4-16.0) gm/dL Hct (34.0-46.0) % MCHC (31.0-37.0) g/dL RDW (11.5-15.5) % APTT (22.0-30.0) sec Chloride (98-107) mmol/L BUN (7-17) mg/dL Glucose (74-99) mg/dL POC Glucose (mg/dL) 256 H 209 H (70-110) mg/dL Calcium (8.4-10.2) mg/dL Ionized Calcium Lalo 6.6 H* (4.5-5.3) mg/dL 04/11/23 04/12/23 04/12/23 Range/Units 21:27 01:04 05:00 RBC (3.80-5.40) m/uL Hgb (11.4-16.0) gm/dL Hct (34.0-46.0) % MCHC (31.0-37.0) g/dL RDW (11.5-15.5) % APTT 69.3 H (22.0-30.0) sec Chloride 110 H (98-107) mmol/L BUN 30 H (7-17) mg/dL Glucose 152 H (74-99) mg/dL POC Glucose (mg/dL) 207 H (70-110) mg/dL Calcium 10.6 H (8.4-10.2) mg/dL Ionized Calcium Lalo (4.5-5.3) mg/dL 04/12/23 04/12/23 04/12/23 Range/Units 05:00 05:00 05:00 RBC 2.73 L (3.80-5.40) m/uL Hgb 7.9 L (11.4-16.0) gm/dL Hct 25.4 L (34.0-46.0) % MCHC 30.9 L (31.0-37.0) g/dL RDW 15.7 H (11.5-15.5) % APTT 66.9 H (22.0-30.0) sec Chloride (98-107) mmol/L BUN (7-17) mg/dL Glucose (74-99) mg/dL POC Glucose (mg/dL) (70-110) mg/dL Calcium (8.4-10.2) mg/dL Ionized Calcium Lalo 6.4 H* (4.5-5.3) mg/dL 04/12/23 04/12/23 Range/Units 06:22 11:15 RBC (3.80-5.40) m/uL Hgb (11.4-16.0) gm/dL Hct (34.0-46.0) % MCHC (31.0-37.0) g/dL RDW (11.5-15.5) % APTT (22.0-30.0) sec Chloride (98-107) mmol/L BUN (7-17) mg/dL Glucose (74-99) mg/dL POC Glucose (mg/dL) 190 H 201 H (70-110) mg/dL Calcium (8.4-10.2) mg/dL Ionized Calcium Lalo (4.5-5.3) mg/dL Assessment and Plan Assessment: * Altered mental status, likely due to toxic metabolic encephalopathy, much improved. * Status post extubation for ventilator-dependent respiratory failure. 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 * Bilateral nonocclusive upper lobe pulmonary emboli. * Acute severe blood loss anemia status post transfusion * Status post acute hypotensive shock from blood loss anemia * Acute kidney injury, resolved * Heparin-induced thrombocytopenia, resolved. Platelets now to 71. * COPD * Diabetes * Hyperlipidemia * Hypertension * Pneumonia * Obesity * X tobacco use * History of right knee arthroplasty in fall of 2021 Plan: * EEG was abnormal, revealed mild to moderate encephalopathy. No epileptiform activity was seen. * CT head revealed no acute intracranial process. Remote right caudate nucleus injury. I personally reviewed CT head, agree with the findings. This abnormality was present in the previous CT head from 04/12/2016 as well. * CT of the cervical spine showed limited exam of the cervical spine secondary to motion. No evidence of cervical spine fracture. Mild multilevel degenerative disc disease. * CTA of the chest showed bilateral nonocclusive upper lobe pulmonary emboli. Cardiomegaly, pulmonary hypertension with pulmonary vascular congestion, correlate for CHF. * Patient currently on Argatroban started since 04/10/2023. Once able to swallow, can be switched to Eliquis per hematology. * Medical management as per IM, critical care and other specialties * PT OT. * Neurology will follow sporadically.
[2023-04-12 15:55] LABS: Protein, Total 5.6 g/dL (6.2-8.2)
[2023-04-12 16:10] LABS: Glucose,Whole Blood 116 mg/dL (70-110)
[2023-04-12 20:32] LABS: Glucose,Whole Blood 211 mg/dL (70-110)
[2023-04-12] MEDS: SENNOSIDES-DOCUSATE SODIUM 1 EACH TAB PO SCH (21:22)
[2023-04-12] MEDS: FAMOTIDINE 20 MG/2 ML VIAL IV SCH (21:28)
[2023-04-12] MEDS: INSULIN DETEMIR (LEVEMIR) 100 UNIT/ML SYR SQ SCH (21:29)
[2023-04-12] MEDS: OLANZapine 5 MG TAB PO SCH (21:29)
--- NOTE | 2023-04-12 23:59 | P.CONS ---
History of Present Illness - Reason for Consult Consult date: 04/12/23 - History of Present Illness The patient is a 72-year-old F with PMH of previous right total knee re placement on 07/23/2022, diabetes mellitus, hypertension, obstructive sleep apnea, bilateral mastectomy for suspected breast cancer, and is an ex-smoker. Patient presented to the emergency room on 03/26/2023 after she tripped over a cord at the hair salon, and landed on her right knee. A CT of the right femur showed a comminuted fracture of the distal metadiaphyseal femur adjacent to the knee prosthesis, and there was displacement of the distal fracture fragment from the proximal fracture. She was admitted to the hospital for revision of right knee prosthesis but intra operatively she became hypotensive requiring multiple fluid boluses and Hgb dropped to 6.8. She was transferred to ICU. Lower ext dopplers negative for DVT. She has not gotten a CT of the chest to evaluate for PE because of worsening renal function but she is being treated with heparin. She lives with in a home with 2 stfd. 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 She did not drive. Patient was extubated over the weekend. CT chest on 04/10/23 was positive for b/l pulmonary emboli. She is not endorsing any pain. She is not fully oriented, AO x 1-2. Review of Systems ROS unobtainable: due to mental status (not fully oriented, denying any pain) Past Medical History Past Medical History: Diabetes Mellitus, Hypertension, Osteoarthritis (OA), Pneumonia, Sleep Apnea/CPAP/BIPAP Additional Past Medical History / Comment(s): covid 10/14/20-10/21/20, hypercalcemia, bilateral mastectomy but told after it was not cancer, colitis, varicose veins, "irregular urination" History of Any Multi-Drug Resistant Organisms: None Reported Past Surgical History: Breast Surgery, Hysterectomy, Joint Replacement, Tonsillectomy Additional Past Surgical History / Comment(s): Bilateral mastectomies, total L and R knee arthroplasty, colonoscopies, bilateral cataract removals/lens implants. right knee replacement 07/23/22 Past Anesthesia/Blood Transfusion Reactions: Motion Sickness Past Psychological History: Anxiety, Depression Additional Psychological History / Comment(s): . Smoking Status: Former smoker Past Alcohol Use History: None Reported Additional Past Alcohol Use History / Comment(s): Pt atarted smoking in 1965 and quit in 2005. Past Drug Use History: None Reported - Past Family History Sister(s) Family Medical History: Myocardial Infarction (NM) Additional Family Medical History / Comment(s): TWO SISTERS HAD AN NM Father Family Medical History: Cancer Additional Family Medical History / Comment(s): Father of stomach cancer. Mother Family Medical History: Cancer Additional Family Medical History / Comment(s): . Medications and Allergies Home Medications Medication Instructions Recorded Confirmed Type FLUoxetine HCL [PROzac] 40 mg PO DAILY 05/03/14 03/26/23 History Fenofibrate Nanocrystallized 145 mg PO DAILY 05/03/14 03/26/23 History [Tricor] OLANZapine [ZyPREXA] 5 mg PO HS 05/03/14 03/26/23 History clonazePAM [KlonoPIN] 0.5 mg PO TID 05/03/14 03/26/23 History allopurinoL [Zyloprim] 100 mg PO DAILY 10/13/20 03/26/23 History Metoprolol Succinate (ER) [Toprol 25 mg PO DAILY 12/10/20 03/26/23 History XL] Atorvastatin [Lipitor] 10 mg PO DAILY 06/11/22 03/26/23 History Multivit with Calcium,Iron,Min 1 tab PO DAILY 06/11/22 03/26/23 History [Women's Multivitamin] Pioglitazone [Actos] 15 mg PO DAILY 06/11/22 03/26/23 History Cinacalcet [Sensipar] 30 mg PO MOTH 03/26/23 03/26/23 History Ferrous Sulfate [Feosol] 325 mg PO DAILY 03/26/23 03/26/23 History Glimepiride [Amaryl] 2 mg PO DAILY 03/26/23 03/26/23 History Insulin Glargine,Hum.rec.anlog 56 units SQ HS 03/26/23 03/26/23 History [Lantus Solostar Pen] Magnesium Oxide [Mag-Ox] 400 mg PO DAILY 03/26/23 03/26/23 History Mesalamine [Mesalamine Dr] 800 mg PO TID 03/26/23 03/26/23 History Allergies Allergy/AdvReac Type Severity Reaction Status Date / Time No Known Allergies Allergy Verified 03/28/23 17:41 Physical Exam Vitals: Vital Signs Temp Pulse Resp BP Pulse Ox FiO2 04/12/23 23:00 55 L 18 99 04/12/23 22:00 62 20 97 50 04/12/23 21:00 68 20 93 L 04/12/23 20:25 66 04/12/23 20:14 64 04/12/23 20:00 98.5 F 66 20 95 04/12/23 19:00 67 20 96 04/12/23 18:00 78 20 95 04/12/23 17:00 71 20 94 L 04/12/23 16:20 66 18 04/12/23 16:07 60 16 04/12/23 16:00 98.8 F 60 19 96 04/12/23 15:00 65 15 95 04/12/23 14:00 71 16 95 04/12/23 13:00 66 16 98 04/12/23 12:12 68 10 L 04/12/23 12:01 67 10 L 04/12/23 12:00 98.5 F 68 16 93 L 04/12/23 11:00 67 18 124/46 94 L 04/12/23 10:00 64 19 95 04/12/23 09:28 65 04/12/23 09:18 68 97 04/12/23 09:00 69 19 96 04/12/23 08:00 98.7 F 68 18 96 04/12/23 07:00 68 19 90 L 04/12/23 06:00 64 14 98 04/12/23 05:00 63 13 160/63 98 04/12/23 04:34 50 04/12/23 04:00 97.6 F 61 16 160/63 96 50 04/12/23 03:00 63 15 98 04/12/23 02:00 57 L 17 96 04/12/23 01:00 58 L 15 100 50 04/12/23 00:31 50 04/12/23 00:00 99.3 F 61 20 96 Intake and Output 04/12/23 04/12/23 04/13/23 14:59 22:59 06:59 Intake Total 600 400 Output Total 780 325 Balance -180 75 Intake: IV 425 400 Dextrose 5% in Water 1, 325 400 000 ml @ 50 mls/hr IV . [facility]H [facility] Rx#:[id number] Potassium Chloride 10 meq 100 In Water For Injection 1 100ml.bag @ 100 mls/hr IVPB Q1H [facility] Rx#: [id number] Intake, IV Titration 100 Amount Fluconazole in NaCl,Iso- 100 Osm 100 mg In Saline 1 50ml.bag @ 50 mls/hr IVPB DAILY [facility] Rx#:[id number] Lipid 75 Dextrose 5% in Water 1, 75 000 ml @ 50 mls/hr IV . Q20H [facility] Rx#:[id number] Output: Urine 780 325 Other: Voiding Method Indwelling Catheter Indwelling Catheter # Bowel Movements 1 ABP, PAP, CO, CI - Last 8 Hours Arterial Blood Pressure 115/39 Arterial Blood Pressure 124/40 Arterial Blood Pressure 128/39 Arterial Blood Pressure 132/38 Arterial Blood Pressure 133/39 Arterial Blood Pressure 154/46 Arterial Blood Pressure 138/41 Arterial Blood Pressure 132/40 General: Well-developed, well-nourished, female, in no acute distress HEENT: NC/AT, external ears intact, hearing intact to conversational speech Cardiovascular: RRR, + 2+ peripheral edema Respiratory: Even and unlabored breathing on O2, CTA Abdomen: Soft, nontender, nondistended Skin:right blister over dorsum of right foot, fluid filled. Musculoskeletal: passive ROM full MMT LUE: Sh Abd 2/5, EE 3/5, EF 3/5, WE 4/5, HG 4/5 MMT RUE: Sh Abd 2/5, EE 3/5, EF 3/5, WE 4/5, HG 4/5 MMT LLE: HF 2/5, KE 2/5, DF 3/5 MMT RLE: HF 2/5, KE 2/5, DF 3/5 Neurological: Alert and oriented x 1-2 CN II-XII: Grossly intact. Speech is clear, fluent Reflexes LUE: Brachioradialis 2/4, Triceps 2/4, Hoffmans - Reflexes RUE: Brachioradialis 2/4, Triceps 2/4, Hoffmans - Reflexes LLE: Patella trace Achilles 0/4, Ankle clonus - Reflexes RLE: Patella trace, Achilles 0/4, Ankle clonus - Psychiatric: Mood calm, affect appropriate, cooperative Results CBC & Chem 7: 04/12/23 05:00 04/12/23 05:00 Labs: Abnormal Lab Results - Last 24 Hours (Table) 04/12/23 04/12/23 04/12/23 Range/Units 01:04 05:00 05:00 RBC 2.73 L (3.80-5.40) m/uL Hgb 7.9 L (11.4-16.0) gm/dL Hct 25.4 L (34.0-46.0) % MCHC 30.9 L (31.0-37.0) g/dL RDW 15.7 H (11.5-15.5) % APTT (22.0-30.0) sec Chloride 110 H (98-107) mmol/L BUN 30 H (7-17) mg/dL Glucose 152 H (74-99) mg/dL POC Glucose (mg/dL) 207 H (70-110) mg/dL Calcium 10.6 H (8.4-10.2) mg/dL Ionized Calcium Lalo (4.5-5.3) mg/dL Total Protein (PEP) (6.2-8.2) g/dL Vitamin D 25-Hydroxy (30.0-100.0) ng/mL 04/12/23 04/12/23 04/12/23 Range/Units 05:00 05:00 06:22 RBC (3.80-5.40) m/uL Hgb (11.4-16.0) gm/dL Hct (34.0-46.0) % MCHC (31.0-37.0) g/dL RDW (11.5-15.5) % APTT 66.9 H (22.0-30.0) sec Chloride (98-107) mmol/L BUN (7-17) mg/dL Glucose (74-99) mg/dL POC Glucose (mg/dL) 190 H (70-110) mg/dL Calcium (8.4-10.2) mg/dL Ionized Calcium Lalo 6.4 H* (4.5-5.3) mg/dL Total Protein (PEP) (6.2-8.2) g/dL Vitamin D 25-Hydroxy (30.0-100.0) ng/mL 04/12/23 04/12/23 04/12/23 Range/Units 10:10 10:10 11:15 RBC (3.80-5.40) m/uL Hgb (11.4-16.0) gm/dL Hct (34.0-46.0) % MCHC (31.0-37.0) g/dL RDW (11.5-15.5) % APTT (22.0-30.0) sec Chloride (98-107) mmol/L BUN (7-17) mg/dL Glucose (74-99) mg/dL POC Glucose (mg/dL) 201 H (70-110) mg/dL Calcium (8.4-10.2) mg/dL Ionized Calcium Lalo (4.5-5.3) mg/dL Total Protein (PEP) 5.6 L (6.2-8.2) g/dL Vitamin D 25-Hydroxy 21.6 L (30.0-100.0) ng/mL 04/12/23 04/12/23 Range/Units 16:07 20:31 RBC (3.80-5.40) m/uL Hgb (11.4-16.0) gm/dL Hct (34.0-46.0) % MCHC (31.0-37.0) g/dL RDW (11.5-15.5) % APTT (22.0-30.0) sec Chloride (98-107) mmol/L BUN (7-17) mg/dL Glucose (74-99) mg/dL POC Glucose (mg/dL) 116 H 211 H (70-110) mg/dL Calcium (8.4-10.2) mg/dL Ionized Calcium Lalo (4.5-5.3) mg/dL Total Protein (PEP) (6.2-8.2) g/dL Vitamin D 25-Hydroxy (30.0-100.0) ng/mL Assessment and Plan Assessment: #Critical illness myopathy -Continue PT/OT evals to determine best dispo plan. #Debility secondary to fracture of the distal femur from a fall -Redo right total knee replacement due to fractured tibi -Right total knee replacement about 4 weeks ago #Respiratory failure with right heart strain on echo, bilatearl PE #Medical co morbidities- Anxiety, depression, DM on insulin #Bowel/ Bladder: Continue Morales cath, primary monitoring. 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 #DVT Prophylaxis: eliquis #Goals: mod I with ambulation and ADLs #Discharge recommendation: Pending further therapies #Prognosis is fair Thank you for this consultation.
--- NOTE | 2023-04-13 00:03 | P.PN ---
Subjective very pleasant 72-year-old patient of Dr. Persaud. Chronic stable medical conditions include diabetes, hyperlipidemia, hypertension, primary osteoar thritis, peripheral neuropathy, bilateral breast cancer with bilateral mastectomy, IBS, diverticulosis, chronic low back arthritis. Anxiety depression. Diagnosis of ulcerative colitis for about 15 years. On Asacol 800 mg 3 times a day. In November 2020 did undergo coloscopy by Dr. Moreno. Normal-a ppearing colon. Patient does follow with Dr. Angi Stallings. On an average has about 10 bowel movements a day. Present for years. Patient today was at the [facility]. Troponin went and fell down. Computed tomography scan showing a comminuted fracture distal metaphyseal femur adjacent to the knee processes. Some external rotation. Right lower extremity - brace. Patient's able to get about the house.. No chest pain or palpitation. March 27: Reclining bed. Pain control. Oral intake fair. Pending surgery tomorrow. Discussed with patient has would've the bedside. March 28: Patient seen by me this morning prior to surgery. In bed. Comfortable. Nothing by mouth. Pending surgery this afternoon. March 16: ICU. Yesterday patient underwent right revision total knee replacement the distal femoral replacement age for periprosthetic distal femur fracture. Estimated blood loss was about 600 mL. In the perioperative area patient blood pressure was running low. Patient was transferred to the ICU. Patient did receive 2 units of blood yesterday. Today patient is intubated. FiO2 85% and a PEEP of 10. Drips include we will affect, propofol, Nimbex. Patient started IV heparin for underlying suspicion of pulmonary embolism. Accu-Cheks running high has put on insulin drip. Oral gastric tube. Patient's and 2 daughters at the bedside. Discussed at length. Patient renal function also worsened. Hyperkalemia. Given bicarbonate. Being followed by tariff expert, nephrology. A nother unit of blood pending. Hemoglobin this morning 6.7. Patient has increased right-sided heart pressures suspicious for therefore PE/fat embolism. March 30: ICU. Spiked a fever. Advair 250/50 5 and a PEEP of 8. On the ventilator. Sinus rhythm. Drips include Nimbex, propofol, IV heparin, IV insulin, IV norepinephrine. Right leg in a brace. IV ceftriaxone. March 31: ICU. On the ventilator. FiO2 45 PEEP of 5. 2 feeding at 30 mL an hour. Telemetry: Sinus rhythm. Drips include insulin, propofol, epinephrine, IV heparin. IV insulin. Cultures have been negative up to now. Remains in empirically on IV ceftriaxone. April 01: ICU. Patient underwent bronchoscopy by Dr. Babcock. 4 atelectasis on the chest x-ray. No rashes thick secretions removed from the left lower lobe. Likely mucous plugging. Currently on the ventilator with FiO2 100 a PEEP of 8. Sinus rhythm on the telemetry. Drips include IV levo fed, propofol, IV heparin, insulin. Having white secretions. IV ceftriaxone. Discussed with the patient's out of the bedside. Patient still remains critical. April 02: ICU. Overnight, last admin the nurse give medications through the OG tube medications came out through the mouth. 2 feeding was cutback. Started on a smaller rate. Remains on the ventilator. Keene to 65 and a PEEP of 12. Levo fed was discontinued yesterday afternoon. On propofol. IV heparin, IV insulin. April 03: ICU. Remains on the ventilator. FiO2 65 PEEP of 12. Patient is off propofol. Still remained lethargic. Neurology consulted. Also includes IV heparin drip. Family including father and 2 daughters at the bedside. G-tube feeding at goal. Discuss CODE STATUS with the family. Nurse called back later that they have decided to make the patient no code April 04: ICU. On the ventilator. FiO2 50 to PEEP of 12. Having a lot of thick and clear secretions through the ET tube. Remains lethargic. Code EEG done today. On cleviprex, propofol, IV heparin changed over to Lovenox subcu twice a day. and the daughter the bedside. April 05: ICU. Ventilator. FiO2 40 PEEP of 12. Drips include cleviprex and propofol. Secretions through the G-tube. Getting 2 feeding. Discussed with the 2 daughters at the bedside. HEENT negative for seizure activity. Shows encephalopathy. Patient positive for heparin-induced platelet antibody. Consult hematology. April 06: ICU. Ventilator. FiO2 40 and a PEEP of 12. Sliding some secretions. 2 feeding at 29 mL an hour. Getting IV Lasix 40 mg twice a day. On propofol 35. Had a small BM yesterday. Patient is started on argatroban yesterday. Taken off cleviprex April 07: ICU. Ventilator. FiO2 40 and a PEEP of 10. Tube feeding continues. On IV argatroban. IV Zosyn. IV propofol. Dr. Levine spoke to the family about possible tracheostomy. and daughter the bedside. Care was discussed. I trying to make a decision. April 08: ICU. Ventilator. FiO2 40 and a PEEP of 10. On tube feeding. IV argatroban. IV Zosyn. IV propofol. Patient eyes open. Gives impression that she can follow. No limb movements. 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 Edema present. Sinus rhythm. Change Catapres patch over to.2 mg 3 times a day through OG tube 2022 Patient is lying in the bed. Currently in the MICU. Was extubated yesterday. No complaints of chest pain or worsening shortness of breath. Patient is on oxygen via nasal cannula. Patient has been afebrile. Otherwise patient was able to eat breakfast but later patient was having difficulty swallowing. Failed bedside swallow evaluation. CHROME TANNER was consulted. Otherwise patient is being continued on Lasix 40 mg daily. Laboratory data showed WBC 6.6 hemoglobin 7.7 and platelets 498 Sodium 146 potassium 4.1 chloride 110 bicarb is 33 BUN 46 and creatinine 1.1. Calcium 10.6. 04/10/2023 Patient is currently sitting in the bed. Awake alert and oriented 1-2. No complaints of chest pain or worsening shortness of breath. Patient is on oxygen via nasal cannula. Patient has not CTA chest done today showed bilateral nonocclusive upper lobe pulmonary emboli., Cardiomegaly pulmonary hypertension and pulmonary vascular congestion correlate for CHF. Patient remains on Lasix 40 mg daily. Patient was also started on anticoagulation with argatroban. Oncology and critical care team is on board. Laboratory data showed WBC 6.5 hemoglobin 7.7 and platelets 234 Sodium 147 potassium 4.2 chloride 112 bicarb is 33 BUN 38 and creatinine 0.8. Patient was given D5 water today. current Medications reviewed 04/11/2023 Patient breathing is quiet, she denies chest pain no coughing She has mild pain in her right knee area and patient is somewhat confused therefore will try to avoid narcotic and give topical analgesic instead as when necessary. She is running low-grade temperatures and draped 0.6. No leukocytosis with obesity 6.1. Sodium 148, hemoglobin stable at 7.9 Patient currently on D5 W at 30 mL/h, also on Diflucan and IV Lasix 40 mg daily Several consultants on the case 03/26/2023 Patient is awake alert, pleasant and very lax but she still confused, she does not know she is in the hospital and she is partially oriented to her illness. However she denies any specific complaint. No neck pain, no knee pain. Patient remains on anticoagulation for her PE with recommendation by hematology to switch her to a liquids after she passed swallow evaluation She is kept on D5W at 50 mL/h and IV Lasix 40 mg daily with sodium improved to 148 down to 145 Objective - Vital Signs Vital signs: Vital Signs Temp 98.7 F 04/12/23 08:00 Pulse 65 04/12/23 09:28 Resp 19 04/12/23 09:00 BP 160/63 04/12/23 05:00 Pulse Ox 97 04/12/23 09:18 FiO2 50 04/12/23 04:34 Intake & Output 04/11/23 04/12/23 04/12/23 18:59 06:59 18:59 Intake Total 7675.588 8013.404 350 Output Total 2700 545 145 Balance -721.971 9465.404 205 Intake: IV 1443 1178 175 Dextrose 5% in Water 1, 255 000 ml @ 30 mls/hr IV . Q24H [facility] Rx#:[id number] Dextrose 5% in Water 1, 525 75 000 ml @ 75 mls/hr IV . [id number] Rx#:[id number] Dextrose 5% in Water 1, 900 75 000 ml @ 75 mls/hr IV . [id number] [facility] Rx#:[id number] Invasive Line 9 30 Magnesium Sulfate-D5w Pmx 200 1 gm In Dextrose/Water 1 100ml.bag @ 100 mls/hr IVPB [facility] Rx#: [id number] Potassium Chloride 10 meq 400 In Water For Injection 1 100ml.bag @ 100 mls/hr IVPB Q1H [facility] Rx#: [id number] Potassium Chloride 10 meq 200 100 In Water For Injection 1 100ml.bag @ 100 mls/hr IVPB Q1H [facility] Rx#: [id number] Sodium Chloride 0.9% 1, 33 3 000 ml @ 20 mls/hr IV . Q24H [facility] Rx#:[id number] Intake, IV Titration 446.598 506.404 100 Amount Argatroban 250 mg In 446.598 506.404 Sodium Chloride 0.9% 250 ml @ 1 MCG/KG/MIN 7.308 mls/hr IV .Q24H [facility] Rx#: [id number] Fluconazole in NaCl,Iso- 100 Osm 100 mg In Saline 1 50ml.bag @ 50 mls/hr IVPB DAILY [facility] Rx#:[id number] Lipid 75 Dextrose 5% in Water 1, 75 000 ml @ 75 mls/hr IV . [id number] [facility] Rx#:[id number] Output: Urine 2700 545 145 Other: Voiding Method Indwelling Catheter Indwelling Catheter Indwelling Catheter # Bowel Movements 1 ABP, PAP, CO, CI - Last Documented Arterial Blood Pressure 117/35 - Exam -GENERAL: The patient is alert and oriented x3, calm, not in any acute distress. Morbidly obese. Looks tired and generally weak HEENT: Pupils are round and equally reacting to light. EOMI. No scleral icterus. No conjunctival pallor. Normocephalic, atraumatic. No pharyngeal erythema. No thyromegaly. CARDIOVASCULAR: S1 and S2 present. No murmurs, rubs, or gallops. PULMONARY: Chest is clear to auscultation, no wheezing . no crackles. ABDOMEN: Soft, nontender, nondistended, normoactive bowel sounds. No palpable organomegaly. -MUSCULOSKELETAL: No joint swelling or deformity. Right knee and lower extremity surgical incisions closed with Pitressin and place EXTREMITIES: No cyanosis, clubbing, or pedal edema. NEUROLOGICAL: Gross neurological examination did not reveal any focal deficits. SKIN: No rashes. no petechiae. - Labs CBC & Chem 7: 04/12/23 05:00 04/12/23 05:00 Labs: Abnormal Lab Results - Last 24 Hours (Table) 04/11/23 04/11/23 04/11/23 Range/Units 11:09 11:13 12:33 RBC (3.80-5.40) m/uL Hgb (11.4-16.0) gm/dL Hct (34.0-46.0) % MCHC (31.0-37.0) g/dL RDW (11.5-15.5) % APTT 62.8 H (22.0-30.0) sec Chloride (98-107) mmol/L BUN (7-17) mg/dL Glucose (74-99) mg/dL POC Glucose (mg/dL) 217 H (70-110) mg/dL Calcium (8.4-10.2) mg/dL Ionized Calcium Lalo 6.9 H* (4.5-5.3) mg/dL 04/11/23 04/11/23 04/11/23 Range/Units 15:08 15:35 18:10 RBC (3.80-5.40) m/uL Hgb (11.4-16.0) gm/dL Hct (34.0-46.0) % MCHC (31.0-37.0) g/dL RDW (11.5-15.5) % APTT 58.4 H 60.3 H 62.2 H (22.0-30.0) sec Chloride (98-107) mmol/L BUN (7-17) mg/dL Glucose (74-99) mg/dL POC Glucose (mg/dL) (70-110) mg/dL Calcium (8.4-10.2) mg/dL Ionized Calcium Lalo (4.5-5.3) mg/dL 04/11/23 04/11/23 04/11/23 Range/Units 18:10 18:14 21:18 RBC (3.80-5.40) m/uL Hgb (11.4-16.0) gm/dL Hct (34.0-46.0) % MCHC (31.0-37.0) g/dL RDW (11.5-15.5) % APTT (22.0-30.0) sec Chloride (98-107) mmol/L BUN (7-17) mg/dL Glucose (74-99) mg/dL POC Glucose (mg/dL) 256 H 209 H (70-110) mg/dL Calcium (8.4-10.2) mg/dL Ionized Calcium Lalo 6.6 H* (4.5-5.3) mg/dL 04/11/23 04/12/23 04/12/23 Range/Units 21:27 01:04 05:00 RBC (3.80-5.40) m/uL Hgb (11.4-16.0) gm/dL Hct (34.0-46.0) % MCHC (31.0-37.0) g/dL RDW (11.5-15.5) % APTT 69.3 H (22.0-30.0) sec Chloride 110 H (98-107) mmol/L BUN 30 H (7-17) mg/dL Glucose 152 H (74-99) mg/dL POC Glucose (mg/dL) 207 H (70-110) mg/dL Calcium 10.6 H (8.4-10.2) mg/dL Ionized Calcium Lalo (4.5-5.3) mg/dL 04/12/23 04/12/23 04/12/23 Range/Units 05:00 05:00 05:00 RBC 2.73 L (3.80-5.40) m/uL Hgb 7.9 L (11.4-16.0) gm/dL Hct 25.4 L (34.0-46.0) % MCHC 30.9 L (31.0-37.0) g/dL RDW 15.7 H (11.5-15.5) % APTT 66.9 H (22.0-30.0) sec Chloride (98-107) mmol/L BUN (7-17) mg/dL Glucose (74-99) mg/dL POC Glucose (mg/dL) (70-110) mg/dL Calcium (8.4-10.2) mg/dL Ionized Calcium Lalo 6.4 H* (4.5-5.3) mg/dL 04/12/23 Range/Units 06:22 RBC (3.80-5.40) m/uL Hgb (11.4-16.0) gm/dL Hct (34.0-46.0) % MCHC (31.0-37.0) g/dL RDW (11.5-15.5) % APTT (22.0-30.0) sec Chloride (98-107) mmol/L BUN (7-17) mg/dL Glucose (74-99) mg/dL POC Glucose (mg/dL) 190 H (70-110) mg/dL Calcium (8.4-10.2) mg/dL Ionized Calcium Lalo (4.5-5.3) mg/dL Assessment and Plan Assessment: Assessment and plan: - Acute pulmonary embolism versus fat embolism On blood thinner, currently on liquids -Fall leading to acute Comminuted fracture distal metadiaphyseal femur adjacent to a knee processes. Displacement of the distal fracture fragment from the proximal fracture. March 28:right revision total knee replacement the distal femoral replacement age for periprosthetic distal femur fracture. By Dr. Stack. -Metabolic/anoxic encephalopathy. Improving slowly Neurology consulted. EEG negative for seizure -Hypernatremia, improving on D5W -Mucous plugging with left lower lobe atelectasis. Status post bronchoscopy and removal of sticks tenacious secretions. 04/01/2023 -Acute severe blood loss anemia from surgery Patient received 3 units of blood -Hyperkalemia from acute kidney injury: Better -Thrombocytopenia. Positive heparin-induced antibody IV Argotroban switch to oral liquids -Acute cor pulmonale with underlying suspicious for fat embolism/pulmonary emb olism with acute right ventricle dilatation and moderate to severe TR. -Acute hypotensive shock from blood loss anemia.: Better Receive 3 units of blood. IV levo fed discontinued -Acute kidney injury likely cardiorenal syndrome/ATN. From hypotension and anemia.: Better Follow with nephrology. Admission creatinine was 1.29. Peaked at 2.43. 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 / Amaryl. Levemir to 52 units at night -Hyperlipidemia Lipitor, TriCor -Anxiety not otherwise specified Klonopin 0.5 mg 3 times a day -Depression Zyprexa 5 mg daily at bedtime, Prozac 40 mg a day -Hyperuricemia Allopurinol -Essential hypertension, -Acute hepatitis likely ischemic, improvement -Primary osteoarthritis Pain medications when necessary -Chronic kidney disease stage III from diabetic nephropathy and hypertensive nephrosclerosis Follow renal function -DO NOT RESUSCITATE
[2023-04-13] MEDS: hydrALAZINE HCL 20 MG/ML 1 ML VIAL IVP PRN (04:53)
[2023-04-13 05:09] LABS: HCT 25.2 % (34.0-46.0); Hypochromasia Slight; MCH 28.9 pg (25.0-35.0); MCHC 31.7 g/dL (31.0-37.0); MCV 91.2 fL (80.0-100.0); Mean Platelet Volume 8.7; Platelet Count 281 k/uL (150-450); RBC 2.76 m/uL (3.80-5.40); RDW 15.4 % (11.5-15.5); WBC 5.4 k/uL (3.8-10.6)
[2023-04-13 05:33] LABS: African American GFR (CKD) >90 (>60 ml/min/1.73 sqM); Anion Gap 6 mmol/L; Blood Urea Nitrogen 29 mg/dL (7-17); Calcium 10.2 mg/dL (8.4-10.2); Carbon Dioxide 27 mmol/L (22-30); Chloride 106 mmol/L (98-107); Glucose 161 mg/dL (74-99); Magnesium 1.4 mg/dL (1.6-2.3); Non-African American GFR(CKD) 79 (>60 ml/min/1.73 sqM); Potassium 3.7 mmol/L (3.5-5.1); Sodium 139 mmol/L (137-145)
[2023-04-13 05:40] LABS: Ionized Calcium 6.3 mg/dL (4.5-5.3)
[2023-04-13] MEDS ORDERED: CALCIUM GLUCONATE IN NACL 1 GM in SALINE 1 100ML.BAG IVPB ONE (05:55)
[2023-04-13] MEDS: DEXTROSE 5% IN WATER 1,000 ML IV SCH (06:38)
[2023-04-13] MEDS: POTASSIUM CHLORIDE 20 MEQ in WATER FOR INJECTION 1 100ML.BAG IVPB SCH ×2 (06:41→10:00)
[2023-04-13] MEDS: MAGNESIUM SULFATE-D5W PMX 1 GM in DEXTROSE/WATER 1 100ML.BAG IVPB SCH ×2 (06:41→08:17)
[2023-04-13 06:47] LABS: Glucose,Whole Blood 192 mg/dL (70-110)
[2023-04-13] MEDS: INSULIN ASPART (NovoLOG) 100 UNIT/ML VIAL SQ SCH ×4 (07:05→20:44)
[2023-04-13] MEDS: IPRATROPIUM-ALBUTEROL 3 ML NEB INHALATION SCH ×4 (07:49→19:43)
[2023-04-13] MEDS: NYSTATIN 100,000 UNIT/ML SUSP 500,000 UNIT/5 ML CUP PO SCH ×4 (08:16→21:34)
[2023-04-13] MEDS: FUROSEMIDE 10 MG/ML 4 ML VIAL IV SCH (08:17)
--- NOTE | 2023-04-13 08:22 | XR ---
EXAMINATION TYPE: XR chest 1V portable DATE OF EXAM: 04/13/2023 COMPARISON: 04/12/2023 HISTORY: Shortness of breath TECHNIQUE: Single frontal view of the chest is obtained. FINDINGS: Left lower lobe infiltrate and small effusion stable. Left-sided central catheters tip ove rlying the cavoatrial junction. Heart size normal with atherosclerotic change aorta. No overt failure or pneumothorax. IMPRESSION: Stable left lower lobe infiltrate and small effusion.
[2023-04-13] MEDS: FERROUS SULFATE 325 MG TAB PO SCH (08:23)
[2023-04-13] MEDS: amLODIPine 10 MG TAB PO SCH (08:23)
[2023-04-13] MEDS: APIXABAN 5 MG TAB PO SCH ×2 (08:23→21:33)
[2023-04-13] MEDS: CINACALCET 30 MG TAB PO SCH (08:23)
[2023-04-13] MEDS: METOPROLOL TARTRATE 25 MG TAB PO SCH ×2 (08:24→21:33)
[2023-04-13] MEDS: FLUoxetine HCL 20 MG CAP PO SCH (08:24)
[2023-04-13] MEDS: SENNOSIDES 8.6 MG TAB PO SCH ×2 (08:24→21:34)
[2023-04-13] MEDS: FLUCONAZOLE IN NACL,ISO-OSM 100 MG in SALINE 1 50ML.BAG IVPB SCH (09:09)
[2023-04-13 09:14] LABS: Angiotensin-1 Converting Enz. 30 U/L (8-52)
--- NOTE | 2023-04-13 09:14 | P.PN ---
Subjective Progress Note Date: 04/13/23 On today's evaluation of 04/13/2023, the patient is on 3 L of oxygen by nasal cannula. She is resting comfortably in bed. She is still using the BiPAP overnight at a pressure of 12/5 cm of water and FiO2 of 50%. She remains on D5W at the rate of 50 mL an hour and the patient is receiving daily Lasix doses of 40 mg IV every 24 hours. The patient was taken off the agratoban yesterday and the patient was started on oral anticoagulation with Eliquis. She is postop day #16. She is doing well otherwise. Hemoglobin stable at 8.0. The white cell count is at 5.4. Renal function stable with a BUN of 29 and a creatinine of 0.7. Sodium level is down to 139. Ionized calcium level is at 6.3. Total calcium level is at 10.2 and the findings on the case regarding her ongoing hypercalcemia. Meanwhile, repeat chest x-ray was done today and the patient was found to have a stable small left-sided pleural effusion/atelectasis. No other significant events overnight. The patient is stable for now. She is a DNR/DNI CODE STATUS. Objective - Vital Signs Vital signs: Vital Signs Temp 98.3 F 04/13/23 08:00 Pulse 77 04/13/23 08:04 Resp 21 04/13/23 08:04 BP 124/46 04/12/23 21:00 Pulse Ox 99 04/13/23 08:00 FiO2 50 04/13/23 04:00 Intake & Output 04/12/23 04/13/23 04/13/23 18:59 06:59 18:59 Intake Total 850 550 600 Output Total 965 635 160 Balance -115 -85 440 Intake: IV 675 550 300 Calcium Gluconate in NaCl 100 1 gm In Saline 1 100ml. bag @ 100 mls/hr IVPB ONCE ONE Rx#:[id number] Dextrose 5% in Water 1, 575 550 100 000 ml @ 50 mls/hr IV . Q20H [facility] Rx#:[id number] Potassium Chloride 10 meq 100 In Water For Injection 1 100ml.bag @ 100 mls/hr IVPB Q1H [facility] Rx#: [id number] Potassium Chloride 20 meq 100 In Water For Injection 1 100ml.bag @ 50 mls/hr IVPB Q2H [facility] Rx#: [id number] Intake, IV Titration 100 100 Amount Fluconazole in NaCl,Iso- 100 Osm 100 mg In Saline 1 50ml.bag @ 50 mls/hr IVPB DAILY [facility] Rx#:[id number] Magnesium Sulfate-D5w Pmx 100 1 gm In Dextrose/Water 1 100ml.bag @ 100 mls/hr IVPB Q1H [facility] Rx#: [id number] Oral 200 Lipid 75 Dextrose 5% in Water 1, 75 000 ml @ 50 mls/hr IV . Q20H [facility] Rx#:[id number] Output: Urine 965 635 160 Other: Voiding Method Indwelling Catheter Indwelling Catheter # Bowel Movements 1 1 ABP, PAP, CO, CI - Last Documented Arterial Blood Pressure 166/53 - Exam No acute distress, awake, verbal, on 3 L oxygen. Saturations are 96%. HEENT examination is grossly unremarkable. Neck supple. Full range of motion. No adenopathy thyromegaly or neck vein distention. Cardiovascular examination reveals regular rhythm rate. S1-S2 normal. No S3 or S4. No discernible murmur noted. Heart sounds are distant. Lungs reveal scattered bilateral rhonchi. No wheezes or crackles. Breath sounds equal. Abdomen obese, with bowel sounds. Extremities are intact. No cyanosis or clubbing. The edema in the lower extremities have improved considerably and the patient has trace edema lower extremities. Surgical one-sided dry clean and intact in the right lower extremity. Skin is without rash or lesion. Neurologic examination is brief but nonfocal. - Labs CBC & Chem 7: 04/13/23 05:00 04/13/23 05:00 Labs: Abnormal Lab Results - Last 24 Hours (Table) 04/12/23 04/12/23 04/12/23 Range/Units 10:10 10:10 11:15 RBC (3.80-5.40) m/uL Hgb (11.4-16.0) gm/dL Hct (34.0-46.0) % BUN (7-17) mg/dL Glucose (74-99) mg/dL POC Glucose (mg/dL) 201 H (70-110) mg/dL Ionized Calcium Lalo (4.5-5.3) mg/dL Magnesium (1.6-2.3) mg/dL Total Protein (PEP) 5.6 L (6.2-8.2) g/dL Vitamin D 25-Hydroxy 21.6 L (30.0-100.0) ng/mL 04/12/23 04/12/23 04/13/23 Range/Units 16:07 20:31 05:00 RBC (3.80-5.40) m/uL Hgb (11.4-16.0) gm/dL Hct (34.0-46.0) % BUN 29 H (7-17) mg/dL Glucose 161 H (74-99) mg/dL POC Glucose (mg/dL) 116 H 211 H (70-110) mg/dL Ionized Calcium Lalo 6.3 H* (4.5-5.3) mg/dL Magnesium 1.4 L (1.6-2.3) mg/dL Total Protein (PEP) (6.2-8.2) g/dL Vitamin D 25-Hydroxy (30.0-100.0) ng/mL 04/13/23 04/13/23 Range/Units 05:00 06:46 RBC 2.76 L (3.80-5.40) m/uL Hgb 8.0 L (11.4-16.0) gm/dL Hct 25.2 L (34.0-46.0) % BUN (7-17) mg/dL Glucose (74-99) mg/dL POC Glucose (mg/dL) 192 H (70-110) mg/dL Ionized Calcium Lalo (4.5-5.3) mg/dL Magnesium (1.6-2.3) mg/dL Total Protein (PEP) (6.2-8.2) g/dL Vitamin D 25-Hydroxy (30.0-100.0) ng/mL Assessment and Plan Plan: Acute hypoxemic and hypercapnic respiratory failure, secondary to pulmonary embolism. The patient will receive oral anticoagulants. The patient was being treated with agratoban due to an underlying heparin-induced, thrombocytopenia. The platelet count is stable and the patient is currently on anticoagulation with Eliquis. She was also weaned down to 3 L of oxygen by nasal cannula. Chest x-ray showing a small left-sided pleural effusion otherwise no other acute abnormalities noted. Status post intubation and mechanical ventilation, intubated on 03/28/2023, with extubation on 04/08/2023. Postop day #16 status post repair of comminuted right femur fracture. 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 Acute kidney injury, recovered and the renal function is back to normal Acute blood loss anemia. Hemoglobin is stable Lactic acidemia secondary to hypotension and hypoperfusion. Shock liver. Previous right total knee replacement. Morbid obesity. History of obstructive sleep apnea syndrome. Previous history of tobacco use. Left lower lobe atelectasis versus pneumonia. Status post bronchoscopy and BAL, Mental status changes, likely related to metabolic encephalopathy. The patient's mental status improved and the patient is able to pass a swallow evaluation, the patient is gradually advancing her diet Plan: Continue Eliquis 5 mg by mouth twice a day and the patient is off agratoban Monitor her platelet count and hematologic profile Provide the patient incentive spirometer Wean down FiO2 as tolerated to maintain a saturation above 90%, currently on 3 L Discontinue the D5 water Continue daily Lasix dose of 40 mg IV Monitor the calcium level Involved physical therapy We'll continue to follow She may be able to transfer outside intensive care unit either today or within next 24 hours. Involved physical therapy and her case
[2023-04-13 11:39] LABS: Glucose,Whole Blood 148 mg/dL (70-110)
--- NOTE | 2023-04-13 12:22 | P.PN ---
Subjective Patient is seen in follow-up for acute kidney injury on chronic kidney disease. Renal function at baseline. Awake and alert. Nonoliguric. Calcium level trending down. Tolerating oral intake. Sodium level is normal today. Family present at bedside. Vital signs are stable. General: Resting in bed. HEENT: Nasal cannula. LUNGS: No audible rhonchi or wheezes. HEART: Regular rate and rhythm. ABDOMEN: Soft, no distention. EXTREMITITES: Trace edema. No drainage noted. Objective - Vital Signs Vital signs: Vital Signs Temp 98 F 04/13/23 12:00 Pulse 74 04/13/23 12:00 Resp 18 04/13/23 12:00 BP 102/46 04/13/23 12:00 Pulse Ox 93 L 04/13/23 12:00 FiO2 50 04/13/23 04:00 Intake & Output 04/12/23 04/13/23 04/13/23 18:59 06:59 18:59 Intake Total 850 550 800 Output Total 191 762 3746 Balance -115 -85 -960 Weight 118.3 kg Intake: IV 675 550 450 Calcium Gluconate in NaCl 100 1 gm In Saline 1 100ml. bag @ 100 mls/hr IVPB ONCE ONE Rx#:[id number] Dextrose 5% in Water 1, 575 550 150 000 ml @ 50 mls/hr IV . Q20H [facility] Rx#:[id number] Potassium Chloride 10 meq 100 In Water For Injection 1 100ml.bag @ 100 mls/hr IVPB Q1H [facility] Rx#: [id number] Potassium Chloride 20 meq 200 In Water For Injection 1 100ml.bag @ 50 mls/hr IVPB Q2H [facility] Rx#: [id number] Intake, IV Titration 100 150 Amount Fluconazole in NaCl,Iso- 100 50 Osm 100 mg In Saline 1 50ml.bag @ 50 mls/hr IVPB DAILY [facility] Rx#:[id number] Magnesium Sulfate-D5w Pmx 100 1 gm In Dextrose/Water 1 100ml.bag @ 100 mls/hr IVPB Q1H [facility] Rx#: [id number] Oral 200 Lipid 75 Dextrose 5% in Water 1, 75 000 ml @ 50 mls/hr IV . Q20H [facility] Rx#:[id number] Output: Urine 945 800 1965 Other: Voiding Method Indwelling Catheter Indwelling Catheter Indwelling Catheter # Bowel Movements 1 1 ABP, PAP, CO, CI - Last Documented Arterial Blood Pressure 152/51 - Labs CBC & Chem 7: 04/13/23 05:00 04/13/23 05:00 Labs: Abnormal Lab Results - Last 24 Hours (Table) 04/12/23 04/12/23 04/12/23 Range/Units 10:10 10:10 16:07 RBC (3.80-5.40) m/uL Hgb (11.4-16.0) gm/dL Hct (34.0-46.0) % BUN (7-17) mg/dL Glucose (74-99) mg/dL POC Glucose (mg/dL) 116 H (70-110) mg/dL Ionized Calcium Lalo (4.5-5.3) mg/dL Magnesium (1.6-2.3) mg/dL Total Protein (PEP) 5.6 L (6.2-8.2) g/dL Vitamin D 25-Hydroxy 21.6 L (30.0-100.0) ng/mL 04/12/23 04/13/23 04/13/23 Range/Units 20:31 05:00 05:00 RBC 2.76 L (3.80-5.40) m/uL Hgb 8.0 L (11.4-16.0) gm/dL Hct 25.2 L (34.0-46.0) % BUN 29 H (7-17) mg/dL Glucose 161 H (74-99) mg/dL POC Glucose (mg/dL) 211 H (70-110) mg/dL Ionized Calcium Lalo 6.3 H* (4.5-5.3) mg/dL Magnesium 1.4 L (1.6-2.3) mg/dL Total Protein (PEP) (6.2-8.2) g/dL Vitamin D 25-Hydroxy (30.0-100.0) ng/mL 04/13/23 04/13/23 Range/Units 06:46 11:37 RBC (3.80-5.40) m/uL Hgb (11.4-16.0) gm/dL Hct (34.0-46.0) % BUN (7-17) mg/dL Glucose (74-99) mg/dL POC Glucose (mg/dL) 192 H 148 H (70-110) mg/dL Ionized Calcium Lalo (4.5-5.3) mg/dL Magnesium (1.6-2.3) mg/dL Total Protein (PEP) (6.2-8.2) g/dL Vitamin D 25-Hydroxy (30.0-100.0) ng/mL Assessment and Plan Plan: Assessment: 1. Acute kidney injury secondary to hemodynamic ATN/shock. Creatinine 1.29 on admission and peaked at 2.43 this admission - 0.75 today. Nonoliguric. No hydronephrosis noted on kidney ultrasound. Left kidney not visualized. 2. Chronic kidney disease stage IIIa with baseline creatinine 1-1.2 secondary to nephrosclerosis/diabetic kidney disease. 3. History of hypercalcemia maintained on Sensipar. Status post calcitonin 04/11/2023. Sensipar resumed today. Calcium level trending down. PTH 70.9. Parathyroid scan negative in the past. MARIANA 30. Vit d 21.6. 4. Acute blood loss anemia status post blood transfusions this admission. H emoglobin stable. 5. Hyperkalemia secondary to acute kidney injury, hyperglycemia, acidosis and acute blood loss. Improved with medical management. 6. Status post knee revision 03/28/2023. 7. Diabetes mellitus. 8. Questionable PE with severe pulmonary hypertension and moderate to severe tricuspid regurgitation. Currently on eliquis. 9. Lower extremity edema. Improved with diuresis. 10. Hypernatremia from lack of oral water intake and free water diuresis. Improved with D5W. Plan: Hep-Lock IV fluids. Encouraged oral intake, including free water. Maintain IV Lasix. Continue to monitor renal function and urine output. Avoid nephrotoxins. Follow-up pending workup for hypercalcemia. Hold amlodipine for systolic blood pressure less than 120.
--- NOTE | 2023-04-13 12:43 | P.PN ---
Subjective Progress Note Date: 04/13/23 Principal diagnosis: HIT antibody positive At today's visit patient is resting comfortably in bed. She reports feeling well. Breathing is even and unlabored. Denies shortness of breath. patient has been transitioned to eliquis. Platelets stable, 281,000. No reported episodes of bleeding. Objective - Vital Signs Vital signs: Vital Signs Temp 98 F 04/13/23 12:00 Pulse 74 04/13/23 12:00 Resp 18 04/13/23 12:00 BP 102/46 04/13/23 12:00 Pulse Ox 93 L 04/13/23 12:00 FiO2 50 04/13/23 04:00 Intake & Output 04/12/23 04/13/23 04/13/23 18:59 06:59 18:59 Intake Total 850 550 800 Output Total 319 924 6375 Balance -115 -85 -960 Weight 118.3 kg Intake: IV 675 550 450 Calcium Gluconate in NaCl 100 1 gm In Saline 1 100ml. bag @ 100 mls/hr IVPB ONCE ONE Rx#:[id number] Dextrose 5% in Water 1, 575 550 150 000 ml @ 50 mls/hr IV . Q20H [facility] Rx#:[id number] Potassium Chloride 10 meq 100 In Water For Injection 1 100ml.bag @ 100 mls/hr IVPB Q1H [facility] Rx#: [id number] Potassium Chloride 20 meq 200 In Water For Injection 1 100ml.bag @ 50 mls/hr IVPB Q2H [facility] Rx#: [id number] Intake, IV Titration 100 150 Amount Fluconazole in NaCl,Iso- 100 50 Osm 100 mg In Saline 1 50ml.bag @ 50 mls/hr IVPB DAILY [facility] Rx#:[id number] Magnesium Sulfate-D5w Pmx 100 1 gm In Dextrose/Water 1 100ml.bag @ 100 mls/hr IVPB Q1H [facility] Rx#: [id number] Oral 200 Lipid 75 Dextrose 5% in Water 1, 75 000 ml @ 50 mls/hr IV . Q20H [facility] Rx#:[id number] Output: Urine 084 133 2867 Other: Voiding Method Indwelling Catheter Indwelling Catheter Indwelling Catheter # Bowel Movements 1 1 ABP, PAP, CO, CI - Last Documented Arterial Blood Pressure 152/51 - Constitutional General appearance: Present: no acute distress, obese - EENT Eyes: Present: anicteric sclerae, EOMI ENT: Present: hearing grossly normal - Respiratory Details: breathing is even and unlabored - Cardiovascular Details: skin warm and dry - Peripheral edema leg Peripheral Edema: bilateral: 3+ - Peripheral pulses dorsalis pedis Peripheral Pulses: bilateral: Normal - Integumentary Integumentary Comment(s): no ecchymosis or necrosis noted - Musculoskeletal Musculoskeletal: Present: generalized weakness - Psychiatric Psychiatric: Present: A&O x's 3, appropriate affect, intact judgment & insight - Labs CBC & Chem 7: 04/13/23 05:00 04/13/23 05:00 Labs: Abnormal Lab Results - Last 24 Hours (Table) 04/12/23 04/12/23 04/12/23 Range/Units 10:10 10:10 16:07 RBC (3.80-5.40) m/uL Hgb (11.4-16.0) gm/dL Hct (34.0-46.0) % BUN (7-17) mg/dL Glucose (74-99) mg/dL POC Glucose (mg/dL) 116 H (70-110) mg/dL Ionized Calcium Lalo (4.5-5.3) mg/dL Magnesium (1.6-2.3) mg/dL Total Protein (PEP) 5.6 L (6.2-8.2) g/dL Vitamin D 25-Hydroxy 21.6 L (30.0-100.0) ng/mL 04/12/23 04/13/23 04/13/23 Range/Units 20:31 05:00 05:00 RBC 2.76 L (3.80-5.40) m/uL Hgb 8.0 L (11.4-16.0) gm/dL Hct 25.2 L (34.0-46.0) % BUN 29 H (7-17) mg/dL Glucose 161 H (74-99) mg/dL POC Glucose (mg/dL) 211 H (70-110) mg/dL Ionized Calcium Lalo 6.3 H* (4.5-5.3) mg/dL Magnesium 1.4 L (1.6-2.3) mg/dL Total Protein (PEP) (6.2-8.2) g/dL Vitamin D 25-Hydroxy (30.0-100.0) ng/mL 04/13/23 04/13/23 Range/Units 06:46 11:37 RBC (3.80-5.40) m/uL Hgb (11.4-16.0) gm/dL Hct (34.0-46.0) % BUN (7-17) mg/dL Glucose (74-99) mg/dL POC Glucose (mg/dL) 192 H 148 H (70-110) mg/dL Ionized Calcium Lalo (4.5-5.3) mg/dL Magnesium (1.6-2.3) mg/dL Total Protein (PEP) (6.2-8.2) g/dL Vitamin D 25-Hydroxy (30.0-100.0) ng/mL Assessment and Plan (1) HIT (heparin-induced thrombocytopenia) Current Visit: Yes Status: Acute Code(s): D75.829 - HEPARIN-INDUCED THROMBOCYTOPENIA, UNSPECIFIED SNOMED Code(s): 79162543 (2) Fracture of distal end of right femur Current Visit: Yes Status: Acute Code(s): S72.401A - UNSP FRACTURE OF LOWER END OF RIGHT FEMUR, INIT FOR CLOS FX SNOMED Code(s): 991037737 Plan: HIT: -HIT antibody positive, 2.1, with 89% probability of JOEL positivity. Patient was started heparin for suspected PE s/p surgery and platelets were noted to decrease 5 days after initiation. Platelets were in the 250,000-400,000 during admission prior to drop. Platelets normal at 281,000. No reported episodes of bleeding -Decrease in platelets 5-10 days after initiation of heparin, with platelets in the 50-80K range is consistent with HIT -Serotinin release assay pending. DIC workup negative. -Heparin has been discontinued and patient was started on argatroban. Argatroban was discontinued on 04/08/28 given she was extubated, but unfortunately failed swallow study and was not restarted on any kind of therapeutic anticoagulation -Argatroban drip restarted on 04/10/2023. Repeat swallow study passed, patient transitioned to Eliquis on 04/12/23 -CT/PE on 04/10/2023 confirmed the presence of bilateral pulmonary emboli provoked by surgery. This likely led to her acute hypoxic respiratory failure requiring intubation -CBC daily We will continue to follow.
[2023-04-13 16:52] LABS: Glucose,Whole Blood 214 mg/dL (70-110)
--- NOTE | 2023-04-13 17:14 | P.PN ---
Subjective Progress Note Date: 04/13/23 04/13/2023: Patient was seen for follow-up, laying comfortably in bed. Offers no complaints. Patient is getting hair done by the aide. Patient states she is feeling better. 04/12/2023: Patient was seen for a follow-up. Patient's daughter was also present today. Patient is doing much better, she has passed swallow studies. She has received some oral liquid sips and feels much better. Denies headache, offers no complaints. Patient is reclining comfortably in her bed. Her strength is slowly getting better. 04/11/2023: Patient was seen for a follow-up. Patient was last seen on 04/03/2023. Please refer to my previous note for details. Subsequently patient has been followed up by Dr. Antoine Levine. Please refer to his notes for details. At present patient was seen in the ICU in bed #264. Patient is laying comfortably in the bed. She states that she is feeling great. Denies any visual symptoms, no headache. Objective - Vital Signs Vital signs: Vital Signs Temp 98.7 F 04/13/23 16:00 Pulse 85 04/13/23 16:00 Resp 18 04/13/23 16:00 BP 130/50 04/13/23 16:00 Pulse Ox 93 L 04/13/23 16:00 FiO2 50 04/13/23 04:00 Intake & Output 04/12/23 04/13/23 04/13/23 18:59 06:59 18:59 Intake Total 850 550 920 Output Total 551 389 9628 Balance - Weight 118.3 kg Intake: IV 675 550 450 Calcium Gluconate in NaCl 100 1 gm In Saline 1 100ml. bag @ 100 mls/hr IVPB ONCE ONE Rx#:[id number] Dextrose 5% in Water 1, 575 550 150 000 ml @ 50 mls/hr IV . Q20H [facility] Rx#:[id number] Potassium Chloride 10 meq 100 In Water For Injection 1 100ml.bag @ 100 mls/hr IVPB Q1H [facility] Rx#: [id number] Potassium Chloride 20 meq 200 In Water For Injection 1 100ml.bag @ 50 mls/hr IVPB Q2H [facility] Rx#: [id number] Intake, IV Titration 100 150 Amount Fluconazole in NaCl,Iso- 100 50 Osm 100 mg In Saline 1 50ml.bag @ 50 mls/hr IVPB DAILY [facility] Rx#:[id number] Magnesium Sulfate-D5w Pmx 100 1 gm In Dextrose/Water 1 100ml.bag @ 100 mls/hr IVPB Q1H [facility] Rx#: [id number] Oral 320 Lipid 75 Dextrose 5% in Water 1, 75 000 ml @ 50 mls/hr IV . Q20H [facility] Rx#:[id number] Output: Urine 390 304 0459 Other: Voiding Method Indwelling Catheter Indwelling Catheter Indwelling Catheter # Bowel Movements 1 1 ABP, PAP, CO, CI - Last Documented Arterial Blood Pressure 152/51 - Exam Patient is alert and awake. Speech is slightly hoarse but no aphasia or dysarthria. Patient states that she lives in [facility], could not tell what city she is currently in. She states it is March and the year is . Patient's pupils are equal, round and reacting to light, face is symmetric. Visual sanchez are full. On muscle strength testing, the strength has improved in both arms, able to lift the arms bilaterally against gravity including the elbow, in the deltoids. Patient is able to wiggle her feet much better than yesterday. Still cannot lift her legs at the hips bilaterally. - Labs CBC & Chem 7: 04/13/23 05:00 04/13/23 05:00 Labs: Abnormal Lab Results - Last 24 Hours (Table) 04/12/23 04/12/23 04/13/23 Range/Units 10:10 20:31 05:00 RBC (3.80-5.40) m/uL Hgb (11.4-16.0) gm/dL Hct (34.0-46.0) % BUN 29 H (7-17) mg/dL Glucose 161 H (74-99) mg/dL POC Glucose (mg/dL) 211 H (70-110) mg/dL Ionized Calcium Lalo 6.3 H* (4.5-5.3) mg/dL Magnesium 1.4 L (1.6-2.3) mg/dL Vitamin D 25-Hydroxy 21.6 L (30.0-100.0) ng/mL 04/13/23 04/13/23 04/13/23 Range/Units 05:00 06:46 11:37 RBC 2.76 L (3.80-5.40) m/uL Hgb 8.0 L (11.4-16.0) gm/dL Hct 25.2 L (34.0-46.0) % BUN (7-17) mg/dL Glucose (74-99) mg/dL POC Glucose (mg/dL) 192 H 148 H (70-110) mg/dL Ionized Calcium Lalo (4.5-5.3) mg/dL Magnesium (1.6-2.3) mg/dL Vitamin D 25-Hydroxy (30.0-100.0) ng/mL 04/13/23 Range/Units 16:50 RBC (3.80-5.40) m/uL Hgb (11.4-16.0) gm/dL Hct (34.0-46.0) % BUN (7-17) mg/dL Glucose (74-99) mg/dL POC Glucose (mg/dL) 214 H (70-110) mg/dL Ionized Calcium Lalo (4.5-5.3) mg/dL Magnesium (1.6-2.3) mg/dL Vitamin D 25-Hydroxy (30.0-100.0) ng/mL Assessment and Plan Assessment: * Altered mental status, likely due to toxic metabolic encephalopathy, much improved. * Status post extubation for ventilator-dependent respiratory failure. 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 * Bilateral nonocclusive upper lobe pulmonary emboli. * Acute severe blood loss anemia status post transfusion * Status post acute hypotensive shock from blood loss anemia * Acute kidney injury, resolved * Heparin-induced thrombocytopenia, resolved. Platelets now to 71. * COPD * Diabetes * Hyperlipidemia * Hypertension * Pneumonia * Obesity * X tobacco use * History of right knee arthroplasty in fall of 2021 Plan: * EEG was abnormal, revealed mild to moderate encephalopathy. No epileptiform activity was seen. * CT head revealed no acute intracranial process. Remote right caudate nucleus injury. I personally reviewed CT head, agree with the findings. This abnormality was present in the previous CT head from 04/12/2016 as well. * CT of the cervical spine showed limited exam of the cervical spine secondary to motion. No evidence of cervical spine fracture. Mild multilevel degenerative disc disease. * CTA of the chest showed bilateral nonocclusive upper lobe pulmonary emboli. Cardiomegaly, pulmonary hypertension with pulmonary vascular congestion, correlate for CHF. * Patient currently Eliquis 5 mg twice a day * Medical management as per IM, critical care and other specialties * PT OT. * Dr. Antoine Levine Will resume neurology service in the morning.
[2023-04-13 18:32] LABS: Vitamin D, 1, 25-Dihydroxy 22 pg/mL (20 - 79)
[2023-04-13 20:41] LABS: Glucose,Whole Blood 116 mg/dL (70-110)
[2023-04-13] MEDS: SENNOSIDES-DOCUSATE SODIUM 1 EACH TAB PO SCH (20:44)
[2023-04-13 21:10] LABS: Albumin 2.93 g/dL (3.80-4.90); Gamma Globulin 0.78 g/dL (0.70-1.50)
[2023-04-13] MEDS: FAMOTIDINE 20 MG/2 ML VIAL IV SCH (21:33)
[2023-04-13] MEDS: INSULIN DETEMIR (LEVEMIR) 100 UNIT/ML SYR SQ SCH (21:33)
[2023-04-13] MEDS: OLANZapine 5 MG TAB PO SCH (21:34)
[2023-04-13] MEDS ORDERED: MAGNESIUM SULFATE-D5W PMX 1 GM in DEXTROSE/WATER 1 100ML.BAG IVPB ONE (22:10)
--- NOTE | 2023-04-13 22:19 | P.PN ---
Subjective very pleasant 72-year-old patient of Dr. Persaud. Chronic stable medical conditions include diabetes, hyperlipidemia, hypertension, primary osteoar thritis, peripheral neuropathy, bilateral breast cancer with bilateral mastectomy, IBS, diverticulosis, chronic low back arthritis. Anxiety depression. Diagnosis of ulcerative colitis for about 15 years. On Asacol 800 mg 3 times a day. In November 2020 did undergo coloscopy by Dr. Moreno. Normal-a ppearing colon. Patient does follow with Dr. Angi Stallings. On an average has about 10 bowel movements a day. Present for years. Patient today was at the the [facility]. Troponin went and fell down. Computed tomography scan showing a comminuted fracture distal metaphyseal femur adjacent to the knee processes. Some external rotation. Right lower extremity - brace. Patient's able to get about the house.. No chest pain or palpitation. March 27: Reclining bed. Pain control. Oral intake fair. Pending surgery tomorrow. Discussed with patient has would've the bedside. March 28: Patient seen by me this morning prior to surgery. In bed. Comfortable. Nothing by mouth. Pending surgery this afternoon. March 16: ICU. Yesterday patient underwent right revision total knee replacement the distal femoral replacement age for periprosthetic distal femur fracture. Estimated blood loss was about 600 mL. In the perioperative area patient blood pressure was running low. Patient was transferred to the ICU. Patient did receive 2 units of blood yesterday. Today patient is intubated. FiO2 85% and a PEEP of 10. Drips include we will affect, propofol, Nimbex. Patient started IV heparin for underlying suspicion of pulmonary embolism. Accu-Cheks running high has put on insulin drip. Oral gastric tube. Patient's and 2 daughters at the bedside. Discussed at length. Patient renal function also worsened. Hyperkalemia. Given bicarbonate. Being followed by television tube inspector, nephrology. A nother unit of blood pending. Hemoglobin this morning 6.7. Patient has increased right-sided heart pressures suspicious for therefore PE/fat embolism. March 30: ICU. Spiked a fever. Advair 250/50 5 and a PEEP of 8. On the ventilator. Sinus rhythm. Drips include Nimbex, propofol, IV heparin, IV insulin, IV norepinephrine. Right leg in a brace. IV ceftriaxone. March 31: ICU. On the ventilator. FiO2 45 PEEP of 5. 2 feeding at 30 mL an hour. Telemetry: Sinus rhythm. Drips include insulin, propofol, epinephrine, IV heparin. IV insulin. Cultures have been negative up to now. Remains in empirically on IV ceftriaxone. April 01: ICU. Patient underwent bronchoscopy by Dr. aBbcock. 4 atelectasis on the chest x-ray. No rashes thick secretions removed from the left lower lobe. Likely mucous plugging. Currently on the ventilator with FiO2 100 a PEEP of 8. Sinus rhythm on the telemetry. Drips include IV levo fed, propofol, IV heparin, insulin. Having white secretions. IV ceftriaxone. Discussed with the patient's out of the bedside. Patient still remains critical. April 02: ICU. Overnight, last admin the nurse give medications through the OG tube medications came out through the mouth. 2 feeding was cutback. Started on a smaller rate. Remains on the ventilator. Gordo to 65 and a PEEP of 12. Levo fed was discontinued yesterday afternoon. On propofol. IV heparin, IV insulin. April 03: ICU. Remains on the ventilator. FiO2 65 PEEP of 12. Patient is off propofol. Still remained lethargic. Neurology consulted. Also includes IV heparin drip. Family including father and 2 daughters at the bedside. G-tube feeding at goal. Discuss CODE STATUS with the family. Nurse called back later that they have decided to make the patient no code April 04: ICU. On the ventilator. FiO2 50 to PEEP of 12. Having a lot of thick and clear secretions through the ET tube. Remains lethargic. Code EEG done today. On cleviprex, propofol, IV heparin changed over to Lovenox subcu twice a day. and the daughter the bedside. April 05: ICU. Ventilator. FiO2 40 PEEP of 12. Drips include cleviprex and propofol. Secretions through the G-tube. Getting 2 feeding. Discussed with the 2 daughters at the bedside. HEENT negative for seizure activity. Shows encephalopathy. Patient positive for heparin-induced platelet antibody. Consult hematology. April 06: ICU. Ventilator. FiO2 40 and a PEEP of 12. Sliding some secretions. 2 feeding at 29 mL an hour. Getting IV Lasix 40 mg twice a day. On propofol 35. Had a small BM yesterday. Patient is started on argatroban yesterday. Taken off cleviprex April 07: ICU. Ventilator. FiO2 40 and a PEEP of 10. Tube feeding continues. On IV argatroban. IV Zosyn. IV propofol. Dr. Levine spoke to the family about possible tracheostomy. and daughter the bedside. Care was discussed. I trying to make a decision. April 08: ICU. Ventilator. FiO2 40 and a PEEP of 10. On tube feeding. IV argatroban. IV Zosyn. IV propofol. Patient eyes open. Gives impression that she can follow. No limb movements. 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 Edema present. Sinus rhythm. Change Catapres patch over to.2 mg 3 times a day through OG tube 2022 Patient is lying in the bed. Currently in the MICU. Was extubated yesterday. No complaints of chest pain or worsening shortness of breath. Patient is on oxygen via nasal cannula. Patient has been afebrile. Otherwise patient was able to eat breakfast but later patient was having difficulty swallowing. Failed bedside swallow evaluation. COMMERCIAL LEASE ADMINISTRATOR was consulted. Otherwise patient is being continued on Lasix 40 mg daily. Laboratory data showed WBC 6.6 hemoglobin 7.7 and platelets 498 Sodium 146 potassium 4.1 chloride 110 bicarb is 33 BUN 46 and creatinine 1.1. Calcium 10.6. 04/10/2023 Patient is currently sitting in the bed. Awake alert and oriented 1-2. No complaints of chest pain or worsening shortness of breath. Patient is on oxygen via nasal cannula. Patient has not CTA chest done today showed bilateral nonocclusive upper lobe pulmonary emboli., Cardiomegaly pulmonary hypertension and pulmonary vascular congestion correlate for CHF. Patient remains on Lasix 40 mg daily. Patient was also started on anticoagulation with argatroban. Oncology and critical care team is on board. Laboratory data showed WBC 6.5 hemoglobin 7.7 and platelets 234 Sodium 147 potassium 4.2 chloride 112 bicarb is 33 BUN 38 and creatinine 0.8. Patient was given D5 water today. current Medications reviewed 04/11/2023 Patient breathing is quiet, she denies chest pain no coughing She has mild pain in her right knee area and patient is somewhat confused therefore will try to avoid narcotic and give topical analgesic instead as when necessary. She is running low-grade temperatures and draped 0.6. No leukocytosis with obesity 6.1. Sodium 148, hemoglobin stable at 7.9 Patient currently on D5 W at 30 mL/h, also on Diflucan and IV Lasix 40 mg daily Several consultants on the case 04/12/2023 Patient is awake alert, pleasant and very lax but she still confused, she does not know she is in the hospital and she is partially oriented to her illness. However she denies any specific complaint. No neck pain, no knee pain. Patient remains on anticoagulation for her PE with recommendation by hematology to switch her to a liquids after she passed swallow evaluation She is kept on D5W at 50 mL/h and IV Lasix 40 mg daily with sodium improved to 148 down to 145 04/13/2023 Patient remains confused at baseline, she thinks this is her home, she was oriented that she is in the hospital. However she has insight into her illness. She looks stable over the last 72 hours. Patient herself lying in bed comfortable denies knee pain, her right wound of the right leg is healing and closed. Patient denies any other new complaint. Vitals stable. Back to normal at 139 and D5W was discontinued. Hemoglobin stable 8.0. No leukocytosis Chest x-ray shows stable left lower lobe infiltrate which is most likely atelectasis. She is currently on a Eliquis Patient can be moved out of the ICU the next 24 hours Objective - Vital Signs Vital signs: Vital Signs Temp 98 F 04/13/23 12:00 Pulse 74 04/13/23 12:00 Resp 18 04/13/23 12:00 BP 102/46 04/13/23 12:00 Pulse Ox 93 L 04/13/23 12:00 FiO2 50 04/13/23 04:00 Intake & Output 04/12/23 04/13/23 04/13/23 18:59 06:59 18:59 Intake Total 850 550 800 Output Total 785 719 1392 Balance -115 -85 -960 Weight 118.3 kg Intake: IV 675 550 450 Calcium Gluconate in NaCl 100 1 gm In Saline 1 100ml. bag @ 100 mls/hr IVPB ONCE ONE Rx#:[id number] Dextrose 5% in Water 1, 575 550 150 000 ml @ 50 mls/hr IV . Q20H [facility] Rx#:[id number] Potassium Chloride 10 meq 100 In Water For Injection 1 100ml.bag @ 100 mls/hr IVPB Q1H [facility] Rx#: [id number] Potassium Chloride 20 meq 200 In Water For Injection 1 100ml.bag @ 50 mls/hr IVPB Q2H [facility] Rx#: [id number] Intake, IV Titration 100 150 Amount Fluconazole in NaCl,Iso- 100 50 Osm 100 mg In Saline 1 50ml.bag @ 50 mls/hr IVPB DAILY [facility] Rx#:[id number] Magnesium Sulfate-D5w Pmx 100 1 gm In Dextrose/Water 1 100ml.bag @ 100 mls/hr IVPB Q1H [facility] Rx#: [id number] Oral 200 Lipid 75 Dextrose 5% in Water 1, 75 000 ml @ 50 mls/hr IV . Q20H [facility] Rx#:[id number] Output: Urine 055 949 3970 Other: Voiding Method Indwelling Catheter Indwelling Catheter Indwelling Catheter # Bowel Movements 1 1 ABP, PAP, CO, CI - Last Documented Arterial Blood Pressure 152/51 - Exam -GENERAL: The patient is alert and oriented x1, calm, not in any acute distress. Morbidly obese. Looks tired and generally weak HEENT: Pupils are round and equally reacting to light. EOMI. No scleral icterus. No conjunctival pallor. Normocephalic, atraumatic. No pharyngeal erythema. No thyromegaly. CARDIOVASCULAR: S1 and S2 present. No murmurs, rubs, or gallops. PULMONARY: Chest is clear to auscultation, no wheezing . no crackles. ABDOMEN: Soft, nontender, nondistended, normoactive bowel sounds. No palpable organomegaly. -MUSCULOSKELETAL: No joint swelling or deformity. Right knee and lower ext remity surgical incisions closed with Pitressin and place EXTREMITIES: No cyanosis, clubbing, or pedal edema. NEUROLOGICAL: Gross neurological examination did not reveal any focal deficits. SKIN: No rashes. no petechiae. - Labs CBC & Chem 7: 04/13/23 05:00 04/13/23 05:00 Labs: Abnormal Lab Results - Last 24 Hours (Table) 04/12/23 04/12/23 04/12/23 Range/Units 10:10 10:10 16:07 RBC (3.80-5.40) m/uL Hgb (11.4-16.0) gm/dL Hct (34.0-46.0) % BUN (7-17) mg/dL Glucose (74-99) mg/dL POC Glucose (mg/dL) 116 H (70-110) mg/dL Ionized Calcium Lalo (4.5-5.3) mg/dL Magnesium (1.6-2.3) mg/dL Total Protein (PEP) 5.6 L (6.2-8.2) g/dL Vitamin D 25-Hydroxy 21.6 L (30.0-100.0) ng/mL 04/12/23 04/13/23 04/13/23 Range/Units 20:31 05:00 05:00 RBC 2.76 L (3.80-5.40) m/uL Hgb 8.0 L (11.4-16.0) gm/dL Hct 25.2 L (34.0-46.0) % BUN 29 H (7-17) mg/dL Glucose 161 H (74-99) mg/dL POC Glucose (mg/dL) 211 H (70-110) mg/dL Ionized Calcium Lalo 6.3 H* (4.5-5.3) mg/dL Magnesium 1.4 L (1.6-2.3) mg/dL Total Protein (PEP) (6.2-8.2) g/dL Vitamin D 25-Hydroxy (30.0-100.0) ng/mL 04/13/23 04/13/23 Range/Units 06:46 11:37 RBC (3.80-5.40) m/uL Hgb (11.4-16.0) gm/dL Hct (34.0-46.0) % BUN (7-17) mg/dL Glucose (74-99) mg/dL POC Glucose (mg/dL) 192 H 148 H (70-110) mg/dL Ionized Calcium Lalo (4.5-5.3) mg/dL Magnesium (1.6-2.3) mg/dL Total Protein (PEP) (6.2-8.2) g/dL Vitamin D 25-Hydroxy (30.0-100.0) ng/mL Assessment and Plan Assessment: Assessment and plan: - Acute pulmonary embolism versus fat embolism On blood thinner, currently on Eliquis -Fall leading to acute Comminuted fracture distal metadiaphyseal femur adjacent to a knee processes. Displacement of the distal fracture fragment from the proximal fracture. March 28:right revision total knee replacement the distal femoral replacement age for periprosthetic distal femur fracture. By Dr. Stack. Pain controlled, need physical therapy evaluation -Metabolic/anoxic encephalopathy Significantly improved although still mildly confused which looks her baseline Neurology consulted. EEG negative for seizure -Hypernatremia, improving on L2ENzqdi is discontinued. Sodium back to normal -Mucous plugging with left lower lobe atelectasis. Status post bronchoscopy and removal of sticks tenacious secretions. 04/01/2023 -Acute severe blood loss anemia from surgery Patient received 3 units of blood -Hyperkalemia from acute kidney injury: Better -Thrombocytopenia. Positive heparin-induced antibody IV Argotroban switch to oral Eliquis -Acute cor pulmonale with underlying suspicious for fat embolism/pulmonary embolism with acute right ventricle dilatation and moderate to severe TR. -Acute hypotensive shock from blood loss anemia.: Better Receive 3 units of blood. IV levo fed discontinued -Acute kidney injury likely cardiorenal syndrome/ATN. From hypotension and anemia.: Better Follow with nephrology. Improved -COPD in an ex-smoker DuoNeb every 4 -Morbid obesity BMI 46.6 Weight loss measures -Diabetes mellitus type 2 on oral hypoglycemic,, chronically on insulin, uncontrolled with hyperglycemia Hold Actos. / Amaryl. Levemir to 52 units at night -Hyperlipidemia Lipitor, TriCor -Anxiety not otherwise specified Klonopin 0.5 mg 3 times a day -Depression Zyprexa 5 mg daily at bedtime, Prozac 40 mg a day -Hyperuricemia Allopurinol -Essential hypertension, -Acute hepatitis likely ischemic, improvement -Primary osteoarthritis Pain medications when necessary -Chronic kidney disease stage III from diabetic nephropathy and hypertensive nephrosclerosis Follow renal function -DO NOT RESUSCITATE Patient will be moved out of the ICU within 24 hours
[2023-04-14] MEDS: hydrALAZINE HCL 20 MG/ML 1 ML VIAL IVP PRN (00:06)
[2023-04-14 06:12] LABS: Glucose,Whole Blood 157 mg/dL (70-110)
[2023-04-14] MEDS: INSULIN ASPART (NovoLOG) 100 UNIT/ML VIAL SQ SCH ×4 (06:26→19:58)
[2023-04-14 08:58] LABS: African American GFR (CKD) >90 (>60 ml/min/1.73 sqM); Anion Gap 5 mmol/L; Blood Urea Nitrogen 22 mg/dL (7-17); Calcium 11.3 mg/dL (8.4-10.2); Carbon Dioxide 28 mmol/L (22-30); Chloride 106 mmol/L (98-107); Glucose 125 mg/dL (74-99); Magnesium 1.5 mg/dL (1.6-2.3); Non-African American GFR(CKD) 87 (>60 ml/min/1.73 sqM); Potassium 3.8 mmol/L (3.5-5.1); Sodium 139 mmol/L (137-145)
[2023-04-14] MEDS: IPRATROPIUM-ALBUTEROL 3 ML NEB INHALATION SCH ×4 (08:58→19:43)
[2023-04-14] MEDS: FLUoxetine HCL 20 MG CAP PO SCH (09:18)
[2023-04-14] MEDS: SENNOSIDES 8.6 MG TAB PO SCH ×2 (09:19→19:59)
[2023-04-14] MEDS: METOPROLOL TARTRATE 25 MG TAB PO SCH ×2 (09:19→19:59)
[2023-04-14] MEDS: FERROUS SULFATE 325 MG TAB PO SCH (09:19)
[2023-04-14] MEDS: amLODIPine 10 MG TAB PO SCH (09:19)
[2023-04-14] MEDS: CINACALCET 30 MG TAB PO SCH (09:20)
[2023-04-14] MEDS: FUROSEMIDE 10 MG/ML 4 ML VIAL IV SCH (09:20)
[2023-04-14] MEDS: NYSTATIN 100,000 UNIT/ML SUSP 500,000 UNIT/5 ML CUP PO SCH ×4 (09:21→19:59)
[2023-04-14] MEDS: APIXABAN 5 MG TAB PO SCH ×2 (09:21→19:59)
[2023-04-14] MEDS ORDERED: Magnesium Replacement Protocol 1 EACH MISC MISCELLANE PRN (10:39)
[2023-04-14] MEDS: MAGNESIUM SULFATE-D5W PMX 1 GM in DEXTROSE/WATER 1 100ML.BAG IVPB SCH ×2 (11:19→12:32)
[2023-04-14] MEDS: FLUCONAZOLE 100 MG TAB PO SCH (11:23)
--- NOTE | 2023-04-14 11:23 | P.PN ---
Subjective Patient is seen in follow-up for acute kidney injury on chronic kidney disease. Renal function at baseline. Awake and alert. Nonoliguric. Calcium level XI.3 today. Magnesium low at 1.5. Tolerating oral intake. Vital signs are stable. General: Resting in bed. HEENT: Nasal cannula. LUNGS: No audible rhonchi or wheezes. HEART: Regular rate and rhythm. ABDOMEN: Soft, no distention. EXTREMITITES: Trace edema. No drainage noted. Objective - Vital Signs Vital signs: Vital Signs Temp 98.2 F 04/14/23 07:35 Pulse 85 04/14/23 09:29 Resp 18 04/14/23 07:35 BP 160/68 04/14/23 07:35 Pulse Ox 98 04/14/23 07:35 FiO2 50 04/14/23 04:00 Intake & Output 04/13/23 04/14/23 04/14/23 18:59 06:59 18:59 Intake Total 1040 240 Output Total 2375 475 500 Balance -6392 -434 -260 Weight 118.3 kg 111 kg Intake: IV 450 Calcium Gluconate in NaCl 100 1 gm In Saline 1 100ml. bag @ 100 mls/hr IVPB ONCE ONE Rx#:[id number] Dextrose 5% in Water 1, 150 000 ml @ 50 mls/hr IV . Q20H [facility] Rx#:[id number] Potassium Chloride 20 meq 200 In Water For Injection 1 100ml.bag @ 50 mls/hr IVPB Q2H [facility] Rx#: [id number] Intake, IV Titration 150 Amount Fluconazole in NaCl,Iso- 50 Osm 100 mg In Saline 1 50ml.bag @ 50 mls/hr IVPB DAILY [facility] Rx#:[id number] Magnesium Sulfate-D5w Pmx 100 1 gm In Dextrose/Water 1 100ml.bag @ 100 mls/hr IVPB Q1H [facility] Rx#: [id number] Oral 440 240 Output: Urine 2375 475 500 Other: Voiding Method Indwelling Catheter Indwelling Catheter Indwelling Catheter # Voids 1 # Bowel Movements 1 1 1 ABP, PAP, CO, CI - Last Documented Arterial Blood Pressure 152/51 - Labs CBC & Chem 7: 04/13/23 05:00 04/14/23 08:01 Labs: Abnormal Lab Results - Last 24 Hours (Table) 04/12/23 04/13/23 04/13/23 Range/Units 10:10 11:37 16:50 BUN (7-17) mg/dL Glucose (74-99) mg/dL POC Glucose (mg/dL) 148 H 214 H (70-110) mg/dL Calcium (8.4-10.2) mg/dL Magnesium (1.6-2.3) mg/dL Albumin (PEP) 2.93 L (3.80-4.90) g/dL 04/13/23 04/14/23 04/14/23 Range/Units 20:40 06:11 08:01 BUN 22 H (7-17) mg/dL Glucose 125 H (74-99) mg/dL POC Glucose (mg/dL) 116 H 157 H (70-110) mg/dL Calcium 11.3 H (8.4-10.2) mg/dL Magnesium 1.5 L (1.6-2.3) mg/dL Albumin (PEP) (3.80-4.90) g/dL Assessment and Plan Plan: Assessment: 1. Acute kidney injury secondary to hemodynamic ATN/shock. Creatinine 1.29 on admission and peaked at 2.43 this admission - 0.68 today. Nonoliguric. No hydronephrosis noted on kidney ultrasound. Left kidney not visualized. 2. Chronic kidney disease stage IIIa with baseline creatinine 1-1.2 secondary to nephrosclerosis/diabetic kidney disease. 3. History of hypercalcemia maintained on Sensipar. Status post calcitonin 04/11/2023. PTH 70.9. Parathyroid scan negative in the past. MARIANA 30. Vit d 21.6. 1,25D3 22. Serum immunofixation positive for IgG Paraprotein. 4. Acute blood loss anemia status post blood transfusions this admission. Hemoglobin stable. 5. Hyperkalemia secondary to acute kidney injury, hyperglycemia, acidosis and acute blood loss. Improved with medical management. 6. Status post knee revision 03/28/2023. 7. Diabetes mellitus. 8. Questionable PE with severe pulmonary hypertension and moderate to severe tricuspid regurgitation. Currently on eliquis. 9. Lower extremity edema. Improved with diuresis. 10. Hypernatremia from lack of oral water intake and free water diuresis. Improved with D5W. Plan: Encouraged oral intake, including free water. Change Lasix to 40 mg orally once daily. Replace magnesium. Continue to monitor renal function and urine output. Avoid nephrotoxins. Notify hematology to rule out monoclonal gammopathy/myeloma. IV zoledronic acid today. Add scheduled hydralazine.
[2023-04-14 11:51] LABS: Glucose,Whole Blood 161 mg/dL (70-110)
[2023-04-14] MEDS ORDERED: ZOLEDRONIC ACID 4 MG in SODIUM CHLORIDE 0.9% 100 ML IV ONE (12:00)
[2023-04-14] MEDS: hydrALAZINE HCL 50 MG TAB PO SCH ×2 (12:34→19:59)
--- NOTE | 2023-04-14 15:16 | P.PN ---
Subjective Progress Note Date: 04/14/23 On today's evaluation of 04/13/2023, the patient is on 3 L of oxygen by nasal cannula. She is resting comfortably in bed. She is still using the BiPAP overnight at a pressure of 12/5 cm of water and FiO2 of 50%. She remains on D5W at the rate of 50 mL an hour and the patient is receiving daily Lasix doses of 40 mg IV every 24 hours. The patient was taken off the agratoban yesterday and the patient was started on oral anticoagulation with Eliquis. She is postop day #16. She is doing well otherwise. Hemoglobin stable at 8.0. The white cell count is at 5.4. Renal function stable with a BUN of 29 and a creatinine of 0.7. Sodium level is down to 139. Ionized calcium level is at 6.3. Total calcium level is at 10.2 and the findings on the case regarding her ongoing hypercalcemia. Meanwhile, repeat chest x-ray was done today and the patient was found to have a stable small left-sided pleural effusion/atelectasis. No other significant events overnight. The patient is stable for now. She is a DNR/DNI CODE STATUS. On 04/14/2023, the patient is stable. The patient is postop day #17. The patient was moved out of the intensive care unit yesterday and patient is currently on a medical floor. She has no specific complaints. No respiratory distress. No altered mentation. She is essentially sedentary at this point in time. Her diuretics have been switched to oral Lasix 40 mg by mouth daily. She remains on anticoagulation with Eliquis 5 mg by mouth twice a day. Meanwhile, the electrolytes are all stable, BUN is at 22 with a creatinine of 0.6 and a sodium level is at 139. Objective - Vital Signs Vital signs: Vital Signs Temp 98.2 F 04/14/23 07:35 Pulse 85 04/14/23 09:29 Resp 18 04/14/23 07:35 BP 160/68 04/14/23 07:35 Pulse Ox 98 04/14/23 07:35 FiO2 50 04/14/23 04:00 Intake & Output 04/13/23 04/14/23 04/14/23 18:59 06:59 18:59 Intake Total 1040 240 Output Total 8605 475 Balance -1335 -475 240 Weight 118.3 kg 111 kg Intake: IV 450 Calcium Gluconate in NaCl 100 1 gm In Saline 1 100ml. bag @ 100 mls/hr IVPB ONCE ONE Rx#:[id number] Dextrose 5% in Water 1, 150 000 ml @ 50 mls/hr IV . Q20H [facility] Rx#:[id number] Potassium Chloride 20 meq 200 In Water For Injection 1 100ml.bag @ 50 mls/hr IVPB Q2H [facility] Rx#: [id number] Intake, IV Titration 150 Amount Fluconazole in NaCl,Iso- 50 Osm 100 mg In Saline 1 50ml.bag @ 50 mls/hr IVPB DAILY [facility] Rx#:[id number] Magnesium Sulfate-D5w Pmx 100 1 gm In Dextrose/Water 1 100ml.bag @ 100 mls/hr IVPB Q1H [facility] Rx#: [id number] Oral 440 240 Output: Urine 2375 475 Other: Voiding Method Indwelling Catheter Indwelling Catheter Indwelling Catheter # Voids 1 # Bowel Movements 1 1 ABP, PAP, CO, CI - Last Documented Arterial Blood Pressure 152/51 - Exam No acute distress, awake, verbal, on 3 L oxygen. Saturations are 96%. HEENT examination is grossly unremarkable. Neck supple. Full range of motion. No adenopathy thyromegaly or neck vein distention. Cardiovascular examination reveals regular rhythm rate. S1-S2 normal. No S3 or S4. No discernible murmur noted. Heart sounds are distant. Lungs reveal scattered bilateral rhonchi. No wheezes or crackles. Breath sounds equal. Abdomen obese, with bowel sounds. Extremities are intact. No cyanosis or clubbing. The edema in the lower extremities have improved considerably and the patient has trace edema lower ex tremities. Surgical one-sided dry clean and intact in the right lower extremity. Skin is without rash or lesion. Neurologic examination is brief but nonfocal. - Labs CBC & Chem 7: 04/13/23 05:00 04/14/23 08:01 Labs: Abnormal Lab Results - Last 24 Hours (Table) 04/12/23 04/13/23 04/13/23 Range/Units 10:10 11:37 16:50 BUN (7-17) mg/dL Glucose (74-99) mg/dL POC Glucose (mg/dL) 148 H 214 H (70-110) mg/dL Calcium (8.4-10.2) mg/dL Magnesium (1.6-2.3) mg/dL Albumin (PEP) 2.93 L (3.80-4.90) g/dL 04/13/23 04/14/23 04/14/23 Range/Units 20:40 06:11 08:01 BUN 22 H (7-17) mg/dL Glucose 125 H (74-99) mg/dL POC Glucose (mg/dL) 116 H 157 H (70-110) mg/dL Calcium 11.3 H (8.4-10.2) mg/dL Magnesium 1.5 L (1.6-2.3) mg/dL Albumin (PEP) (3.80-4.90) g/dL Assessment and Plan Plan: Acute hypoxemic and hypercapnic respiratory failure, secondary to pulmonary embolism. The patient will receive oral anticoagulants. The patient was being treated with agratoban due to an underlying heparin-induced, thrombocytopenia. The platelet count is stable and the patient is currently on anticoagulation with Eliquis. She was also weaned down to 3 L of oxygen by nasal cannula. Chest x-ray showing a small left-sided pleural effusion otherwise no other acute abnormalities noted. Status post intubation and mechanical ventilation, intubated on 03/28/2023, with extubation on 04/08/2023. Postop day # 17 status post repair of comminuted right femur fracture. 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 Acute kidney injury, recovered and the renal function is back to normal Acute blood loss anemia. Hemoglobin is stable Lactic acidemia secondary to hypotension and hypoperfusion. This has recovered and normalized Shock liver, recovered Previous right total knee replacement. Morbid obesity. History of obstructive sleep apnea syndrome. Previous history of tobacco use. Left lower lobe atelectasis versus pneumonia. Status post bronchoscopy and BAL, Mental status changes, likely related to metabolic encephalopathy. The patient's mental status improved and the patient is able to pass a swallow evaluation, the patient is gradually advancing her diet Plan: Continue Eliquis 5 mg by mouth twice a day and the patient is off agratoban Monitor her platelet count and hematologic profile, continue anticoagulation with Eliquis. Provide the patient incentive spirometer Wean down FiO2 as tolerated to maintain a saturation above 90%, currently on 2 L of oxygen nasal cannula Discontinue the D5 water Continue daily Lasix and the patient was switched to oral Lasix 40 mg by mouth daily Monitor the calcium level Involved physical therapy We'll continue to follow She is currently on a medical floor with telemetry and she was moved out of the intensive care unit. Involved physical therapy and her case
[2023-04-14 16:36] LABS: Glucose,Whole Blood 144 mg/dL (70-110)
[2023-04-14 19:40] LABS: Glucose,Whole Blood 265 mg/dL (70-110)
--- NOTE | 2023-04-14 19:50 | P.PN ---
Progress Note - Text Progress Note Date: 04/14/23 - Chief Complaint Right leg injury History of presenting complaint: very pleasant 72-year-old patient of Dr. Persaud. Chronic stable medical conditions include diabetes, hyperlipidemia, hypertension, primary osteoarthritis, peripheral neuropathy, bilateral breast cancer with bilateral mastectomy, IBS, diverticulosis, chronic low back arthritis. Anxiety depression. Diagnosis of ulcerative colitis for about 15 years. On Asacol 800 mg 3 times a day. In November 2020 did undergo coloscopy by Dr. Moreno. Normal- appearing colon. Patient does follow with Dr. Angi Stallings. On an average has about 10 bowel movements a day. Present for years. Patient today was at the [facility]. Troponin went and fell down. Computed tomography scan showing a comminuted fracture distal metaphyseal femur adjacent to the knee processes. Some external rotation. Right lower extremity - brace. Patient's able to get about the house.. No chest pain or palpitation. March 27: Reclining bed. Pain control. Oral intake fair. Pending surgery tomorrow. Discussed with patient has would've the bedside. March 15: Patient seen by me this morning prior to surgery. In bed. Comfortable. Nothing by mouth. Pending surgery this afternoon. March 29: ICU. Yesterday patient underwent right revision total knee replacement the distal femoral replacement age for periprosthetic distal femur fracture. Estimated blood loss was about 600 mL. In the perioperative area patient blood pressure was running low. Patient was transferred to the ICU. Patient did receive 2 units of blood yesterday. Today patient is intubated. FiO2 85% and a PEEP of 10. Drips include we will affect, propofol, Nimbex. Patient started IV heparin for underlying suspicion of pulmonary embolism. Accu-Cheks running high has put on insulin drip. Oral gastric tube. Patient's and 2 daughters at the bedside. Discussed at length. Patient renal function also worsened. Hyperkalemia. Given bicarbonate. Being followed by tour counselor, nephrology. Another unit of blood pending. Hemoglobin this morning 6.7. Patient has increased right-sided heart pressures suspicious for therefore PE/fat embolism. March 30: ICU. Spiked a fever. Advair 250/50 5 and a PEEP of 8. On the ventilator. Sinus rhythm. Drips include Nimbex, propofol, IV heparin, IV insulin, IV norepinephrine. Right leg in a brace. IV ceftriaxone. March 31: ICU. On the ventilator. FiO2 45 PEEP of 5. 2 feeding at 30 mL an hour. Telemetry: Sinus rhythm. Drips include insulin, propofol, epinephrine, IV heparin. IV insulin. Cultures have been negative up to now. Remains in empirically on IV ceftriaxone. April 01: ICU. Patient underwent bronchoscopy by Dr. Babcock. 4 atelectasis on the chest x-ray. No rashes thick secretions removed from the left lower lobe. Likely mucous plugging. Currently on the ventilator with FiO2 100 a PEEP of 8. Sinus rhythm on the telemetry. Drips include IV levo fed, propofol, IV heparin, insulin. Having white secretions. IV ceftriaxone. Discussed with the patient's out of the bedside. Patient still remains critical. April 02: ICU. Overnight, last admin the nurse give medications through the OG tube medications came out through the mouth. 2 feeding was cutback. Started on a smaller rate. Remains on the ventilator. Nash to 65 and a PEEP of 12. Levo fed was discontinued yesterday afternoon. On propofol. IV heparin, IV insulin. April 03: ICU. Remains on the ventilator. FiO2 65 PEEP of 12. Patient is off propofol. Still remained lethargic. Neurology consulted. Also includes IV heparin drip. Family including father and 2 daughters at the bedside. G-tube feeding at goal. Discuss CODE STATUS with the family. Nurse called back later that they have decided to make the patient no code April 04: ICU. On the ventilator. FiO2 50 to PEEP of 12. Having a lot of thick and clear secretions through the ET tube. Remains lethargic. Code EEG done today. On cleviprex, propofol, IV heparin changed over to Lovenox subcu twice a day. and the daughter the bedside. April 05: ICU. Ventilator. FiO2 40 PEEP of 12. Drips include cleviprex and propofol. Secretions through the G-tube. Getting 2 feeding. Discussed with the 2 daughters at the bedside. HEENT negative for seizure activity. Shows encephalopathy. Patient positive for heparin-induced platelet antibody. Consult hematology. April 06: ICU. Ventilator. FiO2 40 and a PEEP of 12. Sliding some secretions. 2 feeding at 29 mL an hour. Getting IV Lasix 40 mg twice a day. On propofol 35. Had a small BM yesterday. Patient is started on argatroban yesterday. Taken off cleviprex April 07: ICU. Ventilator. FiO2 40 and a PEEP of 10. Tube feeding continues. On IV argatroban. IV Zosyn. IV propofol. Dr. Levine spoke to the family about possible tracheostomy. and daughter the bedside. Care was discussed. I trying to make a decision. April 09: ICU. Ventilator. FiO2 40 and a PEEP of 10. On tube feeding. IV argatroban. IV Zosyn. IV propofol. Patient eyes open. Gives impression that she can follow. No limb movements. 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 Edema present. Sinus rhythm. Change Catapres patch over to.2 mg 3 times a day through OG tube 2022 Patient is lying in the bed. Currently in the MICU. Was extubated yesterday. No complaints of chest pain or worsening shortness of breath. Patient is on oxygen via nasal cannula. Patient has been afebrile. Otherwise patient was able to eat breakfast but later patient was having difficulty swallowing. Failed bedside swallow evaluation. ARCHITECTURAL INSPECTOR was consulted. Otherwise patient is being continued on Lasix 40 mg daily. Laboratory data showed WBC 6.6 hemoglobin 7.7 and platelets 498 Sodium 146 potassium 4.1 chloride 110 bicarb is 33 BUN 46 and creatinine 1.1. Calcium 10.6. 04/10/2023 Patient is currently sitting in the bed. Awake alert and oriented 1-2. No complaints of chest pain or worsening shortness of breath. Patient is on oxygen via nasal cannula. Patient has not CTA chest done today showed bilateral nonocclusive upper lobe pulmonary emboli., Cardiomegaly pulmonary hypertension and pulmonary vascular congestion correlate for CHF. Patient remains on Lasix 40 mg daily. Patient was also started on anticoagulation with argatroban. Oncology and critical care team is on board. Laboratory data showed WBC 6.5 hemoglobin 7.7 and platelets 234 Sodium 147 potassium 4.2 chloride 112 bicarb is 33 BUN 38 and creatinine 0.8. Patient was given D5 water today. current Medications reviewed 04/11/2023 Patient breathing is quiet, she denies chest pain no coughing She has mild pain in her right knee area and patient is somewhat confused therefore will try to avoid narcotic and give topical analgesic instead as when necessary. She is running low-grade temperatures and draped 0.6. No leukocytosis with obesity 6.1. Sodium 148, hemoglobin stable at 7.9 Patient currently on D5 W at 30 mL/h, also on Diflucan and IV Lasix 40 mg daily Several consultants on the case 04/12/2023 Patient is awake alert, pleasant and very lax but she still confused, she does not know she is in the hospital and she is partially oriented to her illness. However she denies any specific complaint. No neck pain, no knee pain. Patient remains on anticoagulation for her PE with recommendation by hematology to switch her to a liquids after she passed swallow evaluation She is kept on D5W at 50 mL/h and IV Lasix 40 mg daily with sodium improved to 148 down to 145 04/13/2023 Patient remains confused at baseline, she thinks this is her home, she was oriented that she is in the hospital. However she has insight into her illness. She looks stable over the last 72 hours. Patient herself lying in bed comfortable denies knee pain, her right wound of the right leg is healing and closed. Patient denies any other new complaint. Vitals stable. Back to normal at 139 and D5W was discontinued. Hemoglobin stable 8.0. No leukocytosis Chest x-ray shows stable left lower lobe infiltrate which is most likely atelectasis. She is currently on a Eliquis Patient can be moved out of the ICU the next 24 hours April 14: I resumed care of the patient today. Patient on the medical floor. Sitting up in a chair. Eating some. Family is present. Answering questions. Weak in the limbs. Awake. On eliquis for PE Active Medications Albuterol/Ipratropium (Ipratropium-Albuterol 3 Ml Neb) 3 ml INHALATION RT-QID [facility] Last Admin: 04/14/23 19:43 Dose: 3 ml Amlodipine Besylate (Amlodipine 10 Mg Tab) 10 mg PO DAILY [facility] Last Admin: 04/14/23 09:19 Dose: 10 mg Apixaban (Apixaban 5 Mg Tab) 5 mg PO BID [facility]; Protocol Last Admin: 04/14/23 09:21 Dose: 5 mg Capsaicin (Capsaicin 0.025% Cream 60 Gm Tube) 1 applic TOPICAL TID PRN; Protocol PRN Reason: Pain/Discomfort Cinacalcet (Cinacalcet 30 Mg Tab) 60 mg PO DAILY [facility] Last Admin: 04/14/23 09:20 Dose: 60 mg Dextrose/Water (Dextrose 50% Syringe 50 Ml) 25 ml IVP PER PROTOCOL PRN; Protocol PRN Reason: Hypoglycemia Dextrose/Water (Dextrose 50% Syringe 50 Ml) 50 ml IVP PER PROTOCOL PRN; Protocol PRN Reason: Hypoglycemia Famotidine (Famotidine 20 Mg/2 Ml Vial) 20 mg IV HS [facility] Last Admin: 04/13/23 21:33 Dose: 20 mg Ferrous Sulfate (Ferrous Sulfate 325 Mg Tab) 325 mg PO DAILY [facility] Last Admin: 04/14/23 09:19 Dose: 325 mg Fluconazole (Fluconazole 100 Mg Tab) 100 mg PO DAILY [facility] Last Admin: 04/14/23 11:23 Dose: 100 mg Fluoxetine HCl (Fluoxetine Hcl 20 Mg Cap) 40 mg PO DAILY [facility] Last Admin: 04/14/23 09:18 Dose: 40 mg Furosemide (Furosemide 40 Mg Tab) 40 mg PO DAILY [facility] Hydralazine HCl (Hydralazine Hcl 20 Mg/Ml 1 Ml Vial) 10 mg IVP Q6HR PRN PRN Reason: SBP > 160 mmhg Last Admin: 04/14/23 00:06 Dose: 10 mg Hydralazine HCl (Hydralazine Hcl 50 Mg Tab) 50 mg PO BID [facility] Last Admin: 04/14/23 12:34 Dose: 50 mg Insulin Aspart (Insulin Aspart (Novolog) 100 Unit/Ml Vial) 0 unit SQ [facility]; Protocol Last Admin: 04/14/23 17:04 Dose: Not Given Insulin Detemir (Insulin Detemir (Levemir) 100 Unit/Ml Syr) [address] [facility] Last Admin: 04/13/23 21:33 Dose: 10 unit Lorazepam (Lorazepam 0.5 Mg Tab) 0.5 mg PO Q6HR PRN PRN Reason: Anxiety Last Admin: 04/08/23 06:15 Dose: 0.5 mg Metoprolol Tartrate (Metoprolol Tartrate 25 Mg Tab) 25 mg PO BID [facility] Last Admin: 04/14/23 09:19 Dose: 25 mg Miscellaneous Information (Potassium Replacement Protocol 1 Each Misc) 1 each MISCELLANE DAILY PRN; Protocol PRN Reason: Per Protocol Miscellaneous Information (Magnesium Replacement Protocol 1 Each Misc) 1 each MISCELLANE DAILY PRN; Protocol PRN Reason: Per Protocol Naloxone HCl (Naloxone 0.4 Mg/Ml 1 Ml Vial) 0.2 mg IV Q2M PRN PRN Reason: Opioid Reversal Nystatin (Nystatin 100,000 Unit/Ml Susp 500,000 Unit/5 Ml Cup) 500,000 unit PO QID [facility]; Protocol Last Admin: 04/14/23 17:13 Dose: 500,000 unit Olanzapine (Olanzapine 5 Mg Tab) [address] [facility] Last Admin: 04/13/23 21:34 Dose: 5 mg Ondansetron HCl (Ondansetron 4 Mg/2 Ml Vial) 4 mg IVP Q8HR PRN PRN Reason: Nausea And Vomiting Senna (Sennosides 8.6 Mg Tab) 8.6 mg PO BID [facility] Last Admin: 04/14/23 09:19 Dose: 8.6 mg Senna/Docusate Sodium (Sennosides-Docusate Sodium 1 Each Tab) [address] [facility] Last Admin: 04/13/23 20:44 Dose: Not Given Past medical history to include: Diabetes mellitus type 2, hyperlipidemia, hypertension, osteoarthritis, peripheral neuropathy, bilateral breast cancer with bilateral mastectomies, ulcerative colitis-colonoscopy has shown normal colon and biopsy was negative., diverticulosis, chronic low back pain and arthritis, anxiety depression. COVID- 19 Social history: . Smoked for 41 years stopped in 2005. No alcohol Physical examination: VITAL SIGNS: Afebrile, 79, 16, 159/77, 93% on 2 L GENERAL: , Up in a recliner. Awake, answering questions EYES: Pupils equal. Conjunctiva normal. HEENT: External appearance of nose and ears normal, oral cavity OG tube NECK: JVD unable to assess; masses not palpable. HEART: First and second heart sounds are normal; edema present LUNGS: Respiratory rate increased, decreased breath sounds ABDOMEN: Soft, nontender, liver spleen not palpable, no masses palpable. PSYCH: Answering questions appropriately, but tired NEUROLOGICAL: Weakness in all 4 limbs. MUSCULAR skeletal: Evidence of OA especially in the hands . Right lower extremity in a brace INVESTIGATIONS, reviewed in the clinical context: April 14: Sodium 139 potassium 3[address] chest [April 02] bilateral nonocclusive upper lobe pulmonary emboli. Cardiomegaly, pulmonary hypertension with pulmonary vascular congestion. Heparin-induced platelet antibody: 2.1 April 04: White count 10.5 hemoglobin 7.7 platelets 80 potassium 4.9 creatinine 0.99 March 30: White count 15.4 hemoglobin 8.8 platelets 298 potassium 3.6 BUN 53 creatinine 1.99 AST 1842 ALT 208 2-D echocardiogram: Moderate increased LVH. EF 50-55%. Severe right ventricle dilatation generalized right ventricle hypokinesis. Severe pulmonary hypertension. Moderate to severe tricuspid regurgitation. Ultrasound venous Doppler lower extremity: Limited views. No obvious DVT. Ultrasound kidney: Right kidney: Mild renal cortical thinning. Left kidney obscured. March 29: White count 20.6 hemoglobin 6.7 platelets 300 ABG: PH 7.13 pCO2 62. Potassium 5.1 BUN 40 creatinine 1.91 blood glucose 372 UA: Noted March 28: White count 9.1 hemoglobin 9.5 potassium 4.4 BUN 36 creatinine 1.37 White count 12.2 hemoglobin 11.5 platelets 510 sodium 140 potassium 4 BUN 34 creatinine 1.9 EKG tracing personally reviewed by me-normal sinus rhythm. Chest x-ray film personally reviewed by me-: Portable. No obvious infiltrate Knee x-ray/femur CT: Comminuted fracture distal metadiaphyseal femur adjacent to a knee processes. Displacement of the distal fracture fragment from the proximal fracture Assessment and plan: -Fall leading to acute Comminuted fracture distal metadiaphyseal femur adjacent to a knee processes. Displacement of the distal fracture fragment from the proximal fracture. March 28:right revision total knee replacement the distal femoral replacement age for periprosthetic distal femur fracture. By Dr. Stack. EBL 600 mL -Metabolic/anoxic encephalopathy. Improved Neurology following. EEG negative for seizure -Bilateral pulmonary embolism Eliquis -Mucous plugging with left lower lobe atelectasis. Status post bronchoscopy and removal of sticks tenacious secretions. 04/01/2023 -Acute severe blood loss anemia from surgery Patient received 3 units of blood -Hyperkalemia from acute kidney injury: Better -Thrombocytopenia. Positive heparin-induced antibody: Improved IV Argotroban, completed -Acute cor pulmonale with underlying suspicious for fat embolism/pulmonary embolism with acute right ventricle dilatation and moderate to severe TR. -Acute hypotensive shock from blood loss anemia.: Better Receive 3 units of blood. IV levo fed discontinued -Acute kidney injury likely cardiorenal syndrome/ATN. From hypotension and anemia.: Better Follow with nephrology. Admission creatinine was 1.29. Peaked at 2.43. Creatinine down to 0.75 -COPD in an ex-smoker DuoNeb every 4 -Morbid obesity BMI 46.6 Weight loss measures -Diabetes mellitus type 2 on oral hypoglycemic,, chronically on insulin, uncontrolled with hyperglycemia Hold Actos. / Amaryl. Follow Gqbn-Sahwi-Kahlastumxgvsp Lipitor, TriCor -Anxiety not otherwise specified Klonopin 0.5 mg 3 times a day-held for now -Depression Zyprexa 5 mg daily at bedtime, Prozac 40 mg a day -Hyperuricemia Allopurinol -Critical-care myeloneuropathy PTOT -Essential hypertension, -Acute hepatitis likely ischemic, improvement -Primary osteoarthritis Pain medications when necessary -Chronic kidney disease stage III from diabetic nephropathy and hypertensive nephrosclerosis Follow renal function -DO NOT RESUSCITATE Discussed with patient's and daughter. Continue current medications. PTOT.
[2023-04-14] MEDS: INSULIN DETEMIR (LEVEMIR) 100 UNIT/ML SYR SQ SCH (19:58)
[2023-04-14] MEDS: SENNOSIDES-DOCUSATE SODIUM 1 EACH TAB PO SCH (19:59)
[2023-04-14] MEDS: FAMOTIDINE 20 MG/2 ML VIAL IV SCH (19:59)
[2023-04-14] MEDS: OLANZapine 5 MG TAB PO SCH (19:59)
--- NOTE | 2023-04-14 20:08 | P.PN ---
Subjective Progress Note Date: 04/14/23 Principal diagnosis: HIT antibody positive At today's visit patient is resting comfortably in bed. She reports feeling well. Breathing is even and unlabored. Denies shortness of breath. Denies pain. Platelets stable, 281,000. No reported episodes of bleeding. Objective - Vital Signs Vital signs: Vital Signs Temp 98.2 F 04/14/23 07:35 Pulse 85 04/14/23 19:45 Resp 16 04/14/23 11:17 BP 149/63 04/14/23 15:32 Pulse Ox 94 L 04/14/23 15:32 FiO2 50 04/14/23 04:00 Intake & Output 04/14/23 04/14/23 04/15/23 06:59 18:59 06:59 Intake Total 480 Output Total 475 1251 Balance -475 -771 Weight 111 kg Intake: Oral 480 Output: Urine 475 1250 Stool 1 Other: Voiding Method Indwelling Catheter Indwelling Catheter # Voids 1 # Bowel Movements 1 1 ABP, PAP, CO, CI - Last Documented Arterial Blood Pressure 152/51 - Constitutional General appearance: Present: no acute distress, obese - EENT Eyes: Present: anicteric sclerae, EOMI ENT: Present: hearing grossly normal - Respiratory Respiratory: bilateral: CTA - Cardiovascular Rhythm: regular Heart sounds: normal: S1, S2 Abnormal Heart Sounds: Absent: systolic murmur, diastolic murmur, rub, S3 Gallop, S4 Gallop, click, other - Integumentary Integumentary: Absent: cyanotic, rash - Neurologic Neurologic Comment(s): grossly intact - Musculoskeletal Musculoskeletal: Present: generalized weakness - Psychiatric Psychiatric: Present: A&O x's 3, appropriate affect, intact judgment & insight - Labs CBC & Chem 7: 04/13/23 05:00 04/14/23 08:01 Labs: Abnormal Lab Results - Last 24 Hours (Table) 04/12/23 04/13/23 04/14/23 Range/Units 10:10 20:40 06:11 BUN (7-17) mg/dL Glucose (74-99) mg/dL POC Glucose (mg/dL) 116 H 157 H (70-110) mg/dL Calcium (8.4-10.2) mg/dL Magnesium (1.6-2.3) mg/dL Albumin (PEP) 2.93 L (3.80-4.90) g/dL 04/14/23 04/14/23 04/14/23 Range/Units 08:01 11:46 16:33 BUN 22 H (7-17) mg/dL Glucose 125 H (74-99) mg/dL POC Glucose (mg/dL) 161 H 144 H (70-110) mg/dL Calcium 11.3 H (8.4-10.2) mg/dL Magnesium 1.5 L (1.6-2.3) mg/dL Albumin (PEP) (3.80-4.90) g/dL 04/14/23 Range/Units 19:39 BUN (7-17) mg/dL Glucose (74-99) mg/dL POC Glucose (mg/dL) 265 H (70-110) mg/dL Calcium (8.4-10.2) mg/dL Magnesium (1.6-2.3) mg/dL Albumin (PEP) (3.80-4.90) g/dL Assessment and Plan (1) HIT (heparin-induced thrombocytopenia) Current Visit: Yes Status: Acute Code(s): D75.829 - HEPARIN-INDUCED THROMBOCYTOPENIA, UNSPECIFIED SNOMED Code(s): 40951762 (2) Fracture of distal end of right femur Current Visit: Yes Status: Acute Code(s): S72.401A - UNSP FRACTURE OF LOWER END OF RIGHT FEMUR, INIT FOR CLOS FX SNOMED Code(s): 119937001 (3) Hypercalcemia Current Visit: Yes Status: Acute Priority: Medium Code(s): E83.52 - HYPERCALCEMIA SNOMED Code(s): 52397441 Plan: HIT: -HIT antibody positive, 2.1, with 89% probability of JOEL positivity. Patient was started heparin for suspected PE s/p surgery and platelets were noted to decrease 5 days after initiation. Platelets were in the 250,000-400,000 during admission prior to drop. Platelets normal at 281,000. No reported episodes of bleeding -Decrease in platelets 5-10 days after initiation of heparin, with platelets in the 50-80K range is consistent with HIT -Serotinin release assay pending. DIC workup negative. -Heparin has been discontinued and patient was started on argatroban. Argatroban was discontinued on 04/08/28 given she was extubated, but unfortunately failed swallow study and was not restarted on any kind of therapeutic anticoagulation -Argatroban drip restarted on 04/10/2023. Repeat swallow study passed, patient transitioned to Eliquis on 04/12/23. -CT/PE on 04/10/2023 confirmed the presence of bilateral pulmonary emboli provoked by surgery. This likely led to her acute hypoxic respiratory failure requiring intubation -Will continue to monitor counts Hypercalcemia: -Calcium normal upon admission. Over the last 5 days, calcium has increased. Calcium 11.3 today, corrected calcium 12.3. Patient denies bone pain, unintentional weight loss, and night sweats. -SPEP and immunofixation revealed IgG kappa paraproteinemia. This could indicate an MGUS. Further work-up ordered -With calcium normal upon admission malignancy is unlikely. Hypercalcemia likely secondary to prolonged immobilization. Vitamin D, PTH, PTHRP have been ordered. Workup pending, will continue to follow -Aj bosch Dr. attests: I have performed H&P and developed impression and plan of care for patient, discussed with dictator. I agree with dictated note, document a a scribe
[2023-04-15 02:12] LABS: Immunoglobulin M 72.9 mg/dL (40.0-280.0)
[2023-04-15 05:39] LABS: Anisocytosis Slight; Basophils # (A) 0.1 k/uL (0-0.2); Basophils % (A) 1 %; Eosinophils # (A) 0.2 k/uL (0-0.7); Eosinophils % (A) 3 %; HCT 28.9 % (34.0-46.0); HGB 9.2 gm/dL (11.4-16.0); Hypochromasia Slight; Lymphocytes # (A) 1.1 k/uL (1.0-4.8); Lymphocytes % (A) 19 %; MCH 29.2 pg (25.0-35.0); MCHC 31.7 g/dL (31.0-37.0); MCV 92.1 fL (80.0-100.0); Mean Platelet Volume 8.1; Monocytes # (A) 0.3 k/uL (0-1.0); Monocytes % (A) 5 %; Neutrophils # (A) 4.1 k/uL (1.3-7.7); Neutrophils % (A) 69 %; Platelet Count 345 k/uL (150-450); RBC 3.14 m/uL (3.80-5.40); RDW 16.1 % (11.5-15.5); WBC 5.9 k/uL (3.8-10.6)
[2023-04-15 05:58] LABS: ALT 17 U/L (4-34); AST 23 U/L (14-36); African American GFR (CKD) >90 (>60 ml/min/1.73 sqM); Albumin 3.1 g/dL (3.5-5.0); Alkaline Phosphatase 81 U/L (38-126); Anion Gap 7 mmol/L; Blood Urea Nitrogen 20 mg/dL (7-17); Calcium 11.1 mg/dL (8.4-10.2); Carbon Dioxide 26 mmol/L (22-30); Chloride 105 mmol/L (98-107); Glucose 155 mg/dL (74-99); Non-African American GFR(CKD) 88 (>60 ml/min/1.73 sqM); Potassium 3.3 mmol/L (3.5-5.1); Sodium 138 mmol/L (137-145); Total Bilirubin 0.7 mg/dL (0.2-1.3); Total Protein 5.8 g/dL (6.3-8.2)
[2023-04-15 05:59] LABS: Glucose,Whole Blood 164 mg/dL (70-110)
[2023-04-15] MEDS: INSULIN ASPART (NovoLOG) 100 UNIT/ML VIAL SQ SCH ×3 (06:06→16:25)
[2023-04-15] MEDS ORDERED: POTASSIUM CHLORIDE ER 20 MEQ TAB.ER PO STA (06:43)
[2023-04-15] MEDS: MAGNESIUM SULFATE-D5W PMX 1 GM in DEXTROSE/WATER 1 100ML.BAG IVPB SCH ×2 (06:51→08:34)
[2023-04-15] MEDS: amLODIPine 10 MG TAB PO SCH (08:35)
[2023-04-15] MEDS: FERROUS SULFATE 325 MG TAB PO SCH (08:35)
[2023-04-15] MEDS: hydrALAZINE HCL 50 MG TAB PO SCH (08:35)
[2023-04-15] MEDS: APIXABAN 5 MG TAB PO SCH (08:35)
[2023-04-15] MEDS: METOPROLOL TARTRATE 25 MG TAB PO SCH (08:35)
[2023-04-15] MEDS: FLUCONAZOLE 100 MG TAB PO SCH (08:35)
[2023-04-15] MEDS: CINACALCET 30 MG TAB PO SCH (08:35)
[2023-04-15] MEDS: FLUoxetine HCL 20 MG CAP PO SCH (08:35)
[2023-04-15] MEDS: SENNOSIDES 8.6 MG TAB PO SCH (08:35)
[2023-04-15] MEDS: NYSTATIN 100,000 UNIT/ML SUSP 500,000 UNIT/5 ML CUP PO SCH ×3 (08:36→16:26)
[2023-04-15 08:45] VITALS: RESP 18
[2023-04-15] MEDS ORDERED: FUROSEMIDE 40 MG TAB PO SCH (09:00)
[2023-04-15] MEDS: IPRATROPIUM-ALBUTEROL 3 ML NEB INHALATION SCH ×3 (09:02→16:31)
[2023-04-15 09:22] VITALS: BMI 44.7
[2023-04-15] MEDS ORDERED: CALCITONIN INJ 200 UNIT/ML (MDV) VIAL SQ ONE (10:00)
--- NOTE | 2023-04-15 10:17 | P.PN ---
Subjective Patient is seen in follow-up for acute kidney injury on chronic kidney disease. Renal function at baseline. Awake and alert. Nonoliguric. Calcium level 11.1 today. Magnesium low at 1.4. Tolerating oral intake. Vital signs are stable. General: Resting in bed. HEENT: Nasal cannula. LUNGS: No audible rhonchi or wheezes. HEART: Regular rate and rhythm. ABDOMEN: Soft, no distention. EXTREMITITES: Trace edema. No drainage noted. Objective - Vital Signs Vital signs: Vital Signs Temp 98.6 F 04/15/23 08:44 Pulse 78 04/15/23 09:16 Resp 18 04/15/23 08:44 BP 170/72 04/15/23 08:44 Pulse Ox 96 04/15/23 09:03 FiO2 50 04/15/23 03:35 Intake & Output 04/14/23 04/15/23 04/15/23 18:59 06:59 18:59 Intake Total 480 Output Total 1251 500 Balance -771 -500 Weight 111 kg Intake: Oral 480 Output: Urine 1250 500 Stool 1 Other: Voiding Method Indwelling Catheter Indwelling Catheter Indwelling Catheter # Bowel Movements 1 ABP, PAP, CO, CI - Last Documented Arterial Blood Pressure 152/51 - Labs CBC & Chem 7: 04/15/23 05:24 04/15/23 05:24 Labs: Abnormal Lab Results - Last 24 Hours (Table) 04/14/23 04/14/23 04/14/23 Range/Units 11:46 16:33 19:39 RBC (3.80-5.40) m/uL Hgb (11.4-16.0) gm/dL Hct (34.0-46.0) % RDW (11.5-15.5) % Potassium (3.5-5.1) mmol/L BUN (7-17) mg/dL Glucose (74-99) mg/dL POC Glucose (mg/dL) 161 H 144 H 265 H (70-110) mg/dL Calcium (8.4-10.2) mg/dL Magnesium (1.6-2.3) mg/dL Total Protein (6.3-8.2) g/dL Albumin (3.5-5.0) g/dL 04/15/23 04/15/23 04/15/23 Range/Units 05:24 05:24 05:24 RBC 3.14 L (3.80-5.40) m/uL Hgb 9.2 L (11.4-16.0) gm/dL Hct 28.9 L (34.0-46.0) % RDW 16.1 H (11.5-15.5) % Potassium 3.3 L (3.5-5.1) mmol/L BUN 20 H (7-17) mg/dL Glucose 155 H (74-99) mg/dL POC Glucose (mg/dL) (70-110) mg/dL Calcium 11.1 H (8.4-10.2) mg/dL Magnesium 1.4 L (1.6-2.3) mg/dL Total Protein 5.8 L (6.3-8.2) g/dL Albumin 3.1 L (3.5-5.0) g/dL 04/15/23 Range/Units 05:57 RBC (3.80-5.40) m/uL Hgb (11.4-16.0) gm/dL Hct (34.0-46.0) % RDW (11.5-15.5) % Potassium (3.5-5.1) mmol/L BUN (7-17) mg/dL Glucose (74-99) mg/dL POC Glucose (mg/dL) 164 H (70-110) mg/dL Calcium (8.4-10.2) mg/dL Magnesium (1.6-2.3) mg/dL Total Protein (6.3-8.2) g/dL Albumin (3.5-5.0) g/dL Assessment and Plan Plan: Assessment: 1. Acute kidney injury secondary to hemodynamic ATN/shock. Creatinine 1.29 on admission and peaked at 2.43 this admission - 0.66 today. Nonoliguric. No hydronephrosis noted on kidney ultrasound. Left kidney not visualized. 2. Chronic kidney disease stage IIIa with baseline creatinine 1-1.2 secondary to nephrosclerosis/diabetic kidney disease. 3. History of hypercalcemia maintained on Sensipar. Status post calcitonin 04/11/2023. PTH 70.9 - repeat 23.6. Parathyroid scan negative in the past. MARIANA 30. Vit d 21.6. 1,25D3 22. Serum immunofixation positive for IgG Paraprotein. Oncology following. 4. Acute blood loss anemia status post blood transfusions this admission. Hemoglobin stable. 5. Hyperkalemia secondary to acute kidney injury, hyperglycemia, acidosis and acute blood loss. Improved with medical management. Now hypokalemic from diuresis. 6. Status post knee revision 03/28/2023. 7. Diabetes mellitus. 8. Questionable PE with severe pulmonary hypertension and moderate to severe tricuspid regurgitation. Currently on eliquis. 9. Lower extremity edema. Improved with diuresis. 10. Hypernatremia from lack of oral water intake and free water diuresis. Status post D5W. Resolved. 11. Hypomagnesemia from diuresis. Plan: Encouraged oral intake, including free water. Maintain oral Lasix. Replace potassium and magnesium. Continue to monitor renal function and urine output. Avoid nephrotoxins. Status post IV zoledronic acid 04/14/2023. Dose of subcu calcitonin given this morning. Increase frequency of hydralazine to 3 times a day. Okay to DC Morales catheter from nephrology standpoint.
[2023-04-15 11:52] LABS: Glucose,Whole Blood 140 mg/dL (70-110)
--- NOTE | 2023-04-15 12:24 | P.PN ---
Subjective Progress Note Date: 04/15/23 The patient is known to me. She was seen last by Dr. Michel and please refer to his notes for further details. Per nurse her mentation has improved. Patient feels doing well. Objective - Vital Signs Vital signs: Vital Signs Temp 98.6 F 04/15/23 08:44 Pulse 78 04/15/23 09:16 Resp 18 04/15/23 08:44 BP 170/72 04/15/23 08:44 Pulse Ox 96 04/15/23 09:03 FiO2 50 04/15/23 03:35 Intake & Output 04/14/23 04/15/23 04/15/23 18:59 06:59 18:59 Intake Total 480 Output Total 1251 500 Balance -771 -500 Weight 111 kg Intake: Oral 480 Output: Urine 1250 500 Stool 1 Other: Voiding Method Indwelling Catheter Indwelling Catheter Indwelling Catheter # Bowel Movements 1 ABP, PAP, CO, CI - Last Documented Arterial Blood Pressure 152/51 - Exam GENERAL: The patient is lying in bed and is not in acute distress. NEUROLOGICAL: Higher mental function: Awake alert oriented to self, correctly stated the current year and stated she is in the hospital with options.Patient is following simple commands. No neglect. Cranial nerves: Pupils are round equal reactive to light. Visual sanchez are full. No facial weakness. No dysarthria. Motor: The strength is able to lift bilateral uppers above gravity and wiggle toes. Cerebellum: Unable to assess. - Labs CBC & Chem 7: 04/15/23 05:24 04/15/23 05:24 Labs: Abnormal Lab Results - Last 24 Hours (Table) 04/14/23 04/14/23 04/15/23 Range/Units 16:33 19:39 05:24 RBC (3.80-5.40) m/uL Hgb (11.4-16.0) gm/dL Hct (34.0-46.0) % RDW (11.5-15.5) % Potassium (3.5-5.1) mmol/L BUN (7-17) mg/dL Glucose (74-99) mg/dL POC Glucose (mg/dL) 144 H 265 H (70-110) mg/dL Calcium (8.4-10.2) mg/dL Magnesium 1.4 L (1.6-2.3) mg/dL Total Protein (6.3-8.2) g/dL Albumin (3.5-5.0) g/dL 04/15/23 04/15/23 04/15/23 Range/Units 05:24 05:24 05:57 RBC 3.14 L (3.80-5.40) m/uL Hgb 9.2 L (11.4-16.0) gm/dL Hct 28.9 L (34.0-46.0) % RDW 16.1 H (11.5-15.5) % Potassium 3.3 L (3.5-5.1) mmol/L BUN 20 H (7-17) mg/dL Glucose 155 H (74-99) mg/dL POC Glucose (mg/dL) 164 H (70-110) mg/dL Calcium 11.1 H (8.4-10.2) mg/dL Magnesium (1.6-2.3) mg/dL Total Protein 5.8 L (6.3-8.2) g/dL Albumin 3.1 L (3.5-5.0) g/dL 04/15/23 Range/Units 11:46 RBC (3.80-5.40) m/uL Hgb (11.4-16.0) gm/dL Hct (34.0-46.0) % RDW (11.5-15.5) % Potassium (3.5-5.1) mmol/L BUN (7-17) mg/dL Glucose (74-99) mg/dL POC Glucose (mg/dL) 140 H (70-110) mg/dL Calcium (8.4-10.2) mg/dL Magnesium (1.6-2.3) mg/dL Total Protein (6.3-8.2) g/dL Albumin (3.5-5.0) g/dL Assessment and Plan Assessment: * Altered mental status, likely due to toxic metabolic encephalopathy, much improved. * Status post extubation for ventilator-dependent respiratory failure. 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 * Bilateral nonocclusive upper lobe pulmonary emboli. * Acute severe blood loss anemia status post transfusion * Status post acute hypotensive shock from blood loss anemia * Acute kidney injury, resolved * Heparin-induced thrombocytopenia, resolved. Platelets now to 71. * COPD * Diabetes * Hyperlipidemia * Hypertension * Pneumonia * Obesity * X tobacco use * History of right knee arthroplasty in fall of 2021 Plan: * EEG was abnormal, revealed mild to moderate encephalopathy. No epileptiform activity was seen. * CT head revealed no acute intracranial process. Remote right caudate nucleus injury. I personally reviewed CT head, agree with the findings. This ab normality was present in the previous CT head from 04/12/2016 as well. * CT of the cervical spine showed limited exam of the cervical spine secondary to motion. No evidence of cervical spine fracture. Mild multilevel degenerative disc disease. * CTA of the chest showed bilateral nonocclusive upper lobe pulmonary emboli. Cardiomegaly, pulmonary hypertension with pulmonary vascular congestion, emelyn elate for CHF. * Patient currently Eliquis 5 mg twice a day * Medical management as per IM, critical care and other specialties * PT OT. Patient mentation is improved. Will sign off. Please notify neurology team if any further concerns. Time with Patient: Less than 30
[2023-04-15 12:29] VITALS: BP 143/65; TEMP 98.3
[2023-04-15 12:35] LABS: Free Lambda Lt Chain Qnt, Seru 3.17 mg/dL (0.57-2.63)
--- NOTE | 2023-04-15 13:44 | P.PN ---
Subjective Progress Note Date: 04/15/23 On today's evaluation of 04/13/2023, the patient is on 3 L of oxygen by nasal cannula. She is resting comfortably in bed. She is still using the BiPAP overnight at a pressure of 12/5 cm of water and FiO2 of 50%. She remains on D5W at the rate of 50 mL an hour and the patient is receiving daily Lasix doses of 40 mg IV every 24 hours. The patient was taken off the agratoban yesterday and the patient was started on oral anticoagulation with Eliquis. She is postop day #16. She is doing well otherwise. Hemoglobin stable at 8.0. The white cell count is at 5.4. Renal function stable with a BUN of 29 and a creatinine of 0.7. Sodium level is down to 139. Ionized calcium level is at 6.3. Total calcium level is at 10.2 and the findings on the case regarding her ongoing hypercalcemia. Meanwhile, repeat chest x-ray was done today and the patient was found to have a stable small left-sided pleural effusion/atelectasis. No other significant events overnight. The patient is stable for now. She is a DNR/DNI CODE STATUS. On 04/14/2023, the patient is stable. The patient is postop day #17. The patient was moved out of the intensive care unit yesterday and patient is currently on a medical floor. She has no specific complaints. No respiratory distress. No altered mentation. She is essentially sedentary at this point in time. Her diuretics have been switched to oral Lasix 40 mg by mouth daily. She remains on anticoagulation with Eliquis 5 mg by mouth twice a day. Meanwhile, the electrolytes are all stable, BUN is at 22 with a creatinine of 0.6 and a sodium level is at 139. On 04/15/2023, the patient is postop day #18 and the patient is doing well. The plan is to discharge this patient to [facility] today. She is doing well. No specific complaints. Alert and awake and communicating. The patient is essentially stable and improved and she was moved out of the intensive care unit. The bloodwork remains stable, normal renal function with a creatinine of 0.6 and a BUN of 20 and a sodium level of 138. The patient has a white cell count of 5.9 with a hemoglobin of 9.2. The patient remains on oxygen at 2 L per minute nasal cannula. She needs rehabilitation. Objective - Vital Signs Vital signs: Vital Signs Temp 98.6 F 04/15/23 08:44 Pulse 78 04/15/23 09:16 Resp 18 04/15/23 08:44 BP 170/72 04/15/23 08:44 Pulse Ox 96 04/15/23 09:03 FiO2 50 04/15/23 03:35 Intake & Output 04/14/23 04/15/23 04/15/23 18:59 06:59 18:59 Intake Total 480 Output Total 1251 500 Balance -771 -500 Weight 111 kg Intake: Oral 480 Output: Urine 1250 500 Stool 1 Other: Voiding Method Indwelling Catheter Indwelling Catheter Indwelling Catheter # Bowel Movements 1 ABP, PAP, CO, CI - Last Documented Arterial Blood Pressure 152/51 - Exam No acute distress, awake, verbal, on 3 L oxygen. Saturations are 96%. HEENT examination is grossly unremarkable. Neck supple. Full range of motion. No adenopathy thyromegaly or neck vein distention. Cardiovascular examination reveals regular rhythm rate. S1-S2 normal. No S3 or S4. No discernible murmur noted. Heart sounds are distant. Lungs reveal scattered bilateral rhonchi. No wheezes or crackles. Breath sounds equal. Abdomen obese, with bowel sounds. Extremities are intact. No cyanosis or clubbing. The edema in the lower extremities have improved considerably and the patient has trace edema lower extremities. Surgical one-sided dry clean and intact in the right lower extremity. Skin is without rash or lesion. Neurologic examination is brief but nonfocal. - Labs CBC & Chem 7: 04/15/23 05:24 04/15/23 05:24 Labs: Abnormal Lab Results - Last 24 Hours (Table) 04/14/23 04/14/23 04/14/23 Range/Units 11:46 16:33 19:39 RBC (3.80-5.40) m/uL Hgb (11.4-16.0) gm/dL Hct (34.0-46.0) % RDW (11.5-15.5) % Potassium (3.5-5.1) mmol/L BUN (7-17) mg/dL Glucose (74-99) mg/dL POC Glucose (mg/dL) 161 H 144 H 265 H (70-110) mg/dL Calcium (8.4-10.2) mg/dL Magnesium (1.6-2.3) mg/dL Total Protein (6.3-8.2) g/dL Albumin (3.5-5.0) g/dL 04/15/23 04/15/23 04/15/23 Range/Units 05:24 05:24 05:24 RBC 3.14 L (3.80-5.40) m/uL Hgb 9.2 L (11.4-16.0) gm/dL Hct 28.9 L (34.0-46.0) % RDW 16.1 H (11.5-15.5) % Potassium 3.3 L (3.5-5.1) mmol/L BUN 20 H (7-17) mg/dL Glucose 155 H (74-99) mg/dL POC Glucose (mg/dL) (70-110) mg/dL Calcium 11.1 H (8.4-10.2) mg/dL Magnesium 1.4 L (1.6-2.3) mg/dL Total Protein 5.8 L (6.3-8.2) g/dL Albumin 3.1 L (3.5-5.0) g/dL 04/15/23 Range/Units 05:57 RBC (3.80-5.40) m/uL Hgb (11.4-16.0) gm/dL Hct (34.0-46.0) % RDW (11.5-15.5) % Potassium (3.5-5.1) mmol/L BUN (7-17) mg/dL Glucose (74-99) mg/dL POC Glucose (mg/dL) 164 H (70-110) mg/dL Calcium (8.4-10.2) mg/dL Magnesium (1.6-2.3) mg/dL Total Protein (6.3-8.2) g/dL Albumin (3.5-5.0) g/dL Assessment and Plan Plan: Acute hypoxemic and hypercapnic respiratory failure, secondary to pulmonary embolism. The patient will receive oral anticoagulants. The patient was being treated with agratoban due to an underlying heparin-induced, thrombocytopenia. The platelet count is stable and the patient is currently on anticoagulation with Eliquis. She was also weaned down to 3 L of oxygen by nasal cannula. Chest x-ray showing a small left-sided pleural effusion otherwise no other acute abnormalities noted. Status post intubation and mechanical ventilation, intubated on 03/28/2023, with extubation on 04/08/2023. Postop day # 17 status post repair of comminuted right femur fracture. 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 Acute kidney injury, recovered and the renal function is back to normal Acute blood loss anemia. Hemoglobin is stable Lactic acidemia secondary to hypotension and hypoperfusion. This has recovered and normalized Shock liver, recovered Previous right total knee replacement. Morbid obesity. History of obstructive sleep apnea syndrome. Previous history of tobacco use. Left lower lobe atelectasis versus pneumonia. Status post bronchoscopy and BAL, Mental status changes, likely related to metabolic encephalopathy. The patient's mental status improved and the patient is able to pass a swallow evaluation, the patient is gradually advancing her diet Plan: Clinically stable Discharge planning is in progress and the patient is going to [facility] Continue Eliquis 5 mg by mouth twice a day and the patient is off agratoban Monitor her platelet count and hematologic profile, continue anticoagulation with Eliquis. Provide the patient incentive spirometer Wean down FiO2 as tolerated to maintain a saturation above 90%, currently on 2 L of oxygen nasal cannula Lasix 40 mg by mouth daily Monitor the calcium level Involved physical therapy We'll continue to follow She is currently on a medical floor with telemetry and she was moved out of the intensive care unit. Involved physical therapy and her case Cleared for discharge pulmonary standpoint
--- NOTE | 2023-04-15 14:06 | P.DS ---
Providers Date of admission: 03/26/23 10:39 Expected date of discharge: 04/15/23 Attending physician: Nickolas Crespo Consults: 03/26/23 10:15 Consult Physician Urgent Consulting Provider: Nickolas Crespo Consult Reason/Comments: Medical management, surgical clearance Do you want consulting provider notified?: Yes 03/28/23 09:45 Consult Physician Routine Consulting Provider: Alejandro Saini Consult Reason/Comments: inpatient rehab Do you want consulting provider notified?: Yes 03/28/23 21:42 Consult Physician Routine Consulting Provider: Peña Babcock Consult Reason/Comments: ICU management Do you want consulting provider notified?: Yes 03/29/23 01:30 Consult Physician Urgent Consulting Provider: Jhonatan Flaherty Consult Reason/Comments: Acute kidney injury Do you want consulting provider notified?: Yes 04/03/23 08:45 Consult Physician Routine Consulting Provider: Tian Michel Consult Reason/Comments: AMS Do you want consulting provider notified?: Yes 04/03/23 11:32 Consult Physician Routine Consulting Provider: Neeraj Stack Consult Reason/Comments: Right femur fracture Do you want consulting provider notified?: Already Contacted 04/05/23 14:31 Consult Physician Routine Consulting Provider: Pao Everett Consult Reason/Comments: Heparin induced antibody positive Do you want consulting provider notified?: Yes Primary care physician: [facility] Course: - Chief Complaint Right leg injury History of presenting complaint: very pleasant 72-year-old patient of Dr. Persaud. Chronic stable medical conditions include diabetes, hyperlipidemia, hypertension, primary osteoarthritis, peripheral neuropathy, bilateral breast cancer with bilateral mastectomy, IBS, diverticulosis, chronic low back arthritis. Anxiety depression. Diagnosis of ulcerative colitis for about 15 years. On Asacol 800 mg 3 times a day. In November 2020 did undergo coloscopy by Dr. Moreno. Normal- appearing colon. Patient does follow with Dr. Angi Stallings. On an average has about 10 bowel movements a day. Present for years. Patient today was at the [facility]. Troponin went and fell down. Computed tomography scan showing a comminuted fracture distal metaphyseal femur adjacent to the knee processes. Some external rotation. Right lower extremity - brace. Patient's able to get about the house.. No chest pain or palpitation. March 27: Reclining bed. Pain control. Oral intake fair. Pending surgery tomorrow. Discussed with patient has would've the bedside. March 28: Patient seen by me this morning prior to surgery. In bed. Comfortable. Nothing by mouth. Pending surgery this afternoon. March 29: ICU. Yesterday patient underwent right revision total knee replacement the distal femoral replacement age for periprosthetic distal femur fracture. Estimated blood loss was about 600 mL. In the perioperative area patient blood pressure was running low. Patient was transferred to the ICU. Patient did receive 2 units of blood yesterday. Today patient is intubated. FiO2 85% and a PEEP of 10. Drips include we will affect, propofol, Nimbex. Patient started IV heparin for underlying suspicion of pulmonary embolism. Accu-Cheks running high has put on insulin drip. Oral gastric tube. Patient's and 2 daughters at the bedside. Discussed at length. Patient renal function also worsened. Hyperkalemia. Given bicarbonate. Being followed by transportation engineering technician, nephrology. Another unit of blood pending. Hemoglobin this morning 6.7. Patient has increased right-sided heart pressures suspicious for therefore PE/fat embolism. March 30: ICU. Spiked a fever. Advair 250/50 5 and a PEEP of 8. On the ventilator. Sinus rhythm. Drips include Nimbex, propofol, IV heparin, IV insulin, IV norepinephrine. Right leg in a brace. IV ceftriaxone. March 31: ICU. On the ventilator. FiO2 45 PEEP of 5. 2 feeding at 30 mL an hour. Telemetry: Sinus rhythm. Drips include insulin, propofol, epinephrine, IV heparin. IV insulin. Cultures have been negative up to now. Remains in empirically on IV ceftriaxone. April 01: ICU. Patient underwent bronchoscopy by Dr. Babcock. 4 atelectasis on the chest x-ray. No rashes thick secretions removed from the left lower lobe. Likely mucous plugging. Currently on the ventilator with FiO2 100 a PEEP of 8. Sinus rhythm on the telemetry. Drips include IV levo fed, propofol, IV heparin, insulin. Having white secretions. IV ceftriaxone. Discussed with the patient's out of the bedside. Patient still remains critical. April 02: ICU. Overnight, last admin the nurse give medications through the OG tube medications came out through the mouth. 2 feeding was cutback. Started on a smaller rate. Remains on the ventilator. [place] to 65 and a PEEP of 12. Levo fed was discontinued yesterday afternoon. On propofol. IV heparin, IV insulin. April 03: ICU. Remains on the ventilator. FiO2 65 PEEP of 12. Patient is off propofol. Still remained lethargic. Neurology consulted. Also includes IV heparin drip. Family including father and 2 daughters at the bedside. G-tube feeding at goal. Discuss CODE STATUS with the family. Nurse called back later that they have decided to make the patient no code April 04: ICU. On the ventilator. FiO2 50 to PEEP of 12. Having a lot of thick and clear secretions through the ET tube. Remains lethargic. Code EEG done today. On cleviprex, propofol, IV heparin changed over to Lovenox subcu twice a day. and the daughter the bedside. April 05: ICU. Ventilator. FiO2 40 PEEP of 12. Drips include cleviprex and propofol. Secretions through the G-tube. Getting 2 feeding. Discussed with the 2 daughters at the bedside. HEENT negative for seizure activity. Shows encephalopathy. Patient positive for heparin-induced platelet antibody. Consult hematology. April 06: ICU. Ventilator. FiO2 40 and a PEEP of 12. Sliding some secretions. 2 feeding at 29 mL an hour. Getting IV Lasix 40 mg twice a day. On propofol 35. Had a small BM yesterday. Patient is started on argatroban yesterday. Taken off cleviprex April 07: ICU. Ventilator. FiO2 40 and a PEEP of 10. Tube feeding continues. On IV argatroban. IV Zosyn. IV propofol. Dr. Levine spoke to the family about possible tracheostomy. and daughter the bedside. Care was discussed. I trying to make a decision. April 09: ICU. Ventilator. FiO2 40 and a PEEP of 10. On tube feeding. IV argatroban. IV Zosyn. IV propofol. Patient eyes open. Gives impression that she can follow. No limb movements. 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 Edema present. Sinus rhythm. Change Catapres patch over to.2 mg 3 times a day through OG tube 2022 Patient is lying in the bed. Currently in the MICU. Was extubated yesterday. No complaints of chest pain or worsening shortness of breath. Patient is on oxygen via nasal cannula. Patient has been afebrile. Otherwise patient was able to eat breakfast but later patient was having difficulty swallowing. Failed bedside swallow evaluation. PUMP ERECTOR HELPER was consulted. Otherwise patient is being continued on Lasix 40 mg daily. Laboratory data showed WBC 6.6 hemoglobin 7.7 and platelets 498 Sodium 146 potassium 4.1 chloride 110 bicarb is 33 BUN 46 and creatinine 1.1. Calcium 10.6. 04/10/2023 Patient is currently sitting in the bed. Awake alert and oriented 1-2. No complaints of chest pain or worsening shortness of breath. Patient is on oxygen via nasal cannula. Patient has not CTA chest done today showed bilateral nonocclusive upper lobe pulmonary emboli., Cardiomegaly pulmonary hypertension and pulmonary vascular congestion correlate for CHF. Patient remains on Lasix 40 mg daily. Patient was also started on anticoagulation with argatroban. Oncology and critical care team is on board. Laboratory data showed WBC 6.5 hemoglobin 7.7 and platelets 234 Sodium 147 potassium 4.2 chloride 112 bicarb is 33 BUN 38 and creatinine 0.8. Patient was given D5 water today. current Medications reviewed 04/11/2023 Patient breathing is quiet, she denies chest pain no coughing She has mild pain in her right knee area and patient is somewhat confused therefore will try to avoid narcotic and give topical analgesic instead as when necessary. She is running low-grade temperatures and draped 0.6. No leukocytosis with obesity 6.1. Sodium 148, hemoglobin stable at 7.9 Patient currently on D5 W at 30 mL/h, also on Diflucan and IV Lasix 40 mg daily Several consultants on the case 04/12/2023 Patient is awake alert, pleasant and very lax but she still confused, she does not know she is in the hospital and she is partially oriented to her illness. However she denies any specific complaint. No neck pain, no knee pain. Patient remains on anticoagulation for her PE with recommendation by hematology to switch her to a liquids after she passed swallow evaluation She is kept on D5W at 50 mL/h and IV Lasix 40 mg daily with sodium improved to 148 down to 145 04/13/2023 Patient remains confused at baseline, she thinks this is her home, she was oriented that she is in the hospital. However she has insight into her illness. She looks stable over the last 72 hours. Patient herself lying in bed comfortable denies knee pain, her right wound of the right leg is healing and closed. Patient denies any other new complaint. Vitals stable. Back to normal at 139 and D5W was discontinued. Hemoglobin stable 8.0. No leukocytosis Chest x-ray shows stable left lower lobe infiltrate which is most likely atelectasis. She is currently on a Eliquis Patient can be moved out of the ICU the next 24 hours April 14: I resumed care of the patient today. Patient on the medical floor. Sitting up in a chair. Eating some. Family is present. Answering questions. Weak in the limbs. Awake. On eliquis for PE April 15: Patient doing well. Communicating. Oriented much better. Eating better. Okayed with Dr. Mitchell for discharge. Discussed with the patient and the daughter at the bedside. Discussed with case technician. Patient will follow- up with pulmonary and orthopedics outpatient Discussion and discharge planning more than 35 minutes Past medical history to include: Diabetes mellitus type 2, hyperlipidemia, hypertension, osteoarthritis, peripheral neuropathy, bilateral breast cancer with bilateral mastectomies, ulcerative colitis-colonoscopy has shown normal colon and biopsy was negative., diverticulosis, chronic low back pain and arthritis, anxiety depression. COVID- 19 Social history: . Smoked for 41 years stopped in 2005. No alcohol Physical examination: VITAL SIGNS: 98.3, 79, 18, 143/65, 95% on 2 L GENERAL: , Reclining in bed Awake, answering questions EYES: Pupils equal. Conjunctiva normal. HEENT: External appearance of nose and ears normal, oral cavity OG tube NECK: JVD unable to assess; masses not palpable. HEART: First and second heart sounds are normal; edema present LUNGS: Respiratory rate increased, decreased breath sounds ABDOMEN: Soft, nontender, liver spleen not palpable, no masses palpable. PSYCH: Answering questions appropriately, NEUROLOGICAL: Power in the upper limbs 3/5. Lower limbs 2/5 MUSCULAR skeletal: Evidence of OA especially in the hands . Right lower extremity in a brace INVESTIGATIONS, reviewed in the clinical context: April 15: White count 5.9 hemoglobin 9.2 platelets 345 potassium 3.3 creatinine 0.66 COVID-19: Not detected April 14: Sodium 139 potassium 3[address] chest [April 02] bilateral nonocclusive upper lobe pulmonary emboli. Cardiomegaly, pulmonary hypertension with pulmonary vascular congestion. Heparin-induced platelet antibody: 2.1 April 04: White count 10.5 hemoglobin 7.7 platelets 80 potassium 4.9 creatinine 0.99 March 30: White count 15.4 hemoglobin 8.8 platelets 298 potassium 3.6 BUN 53 creatinine 1.99 AST 1842 ALT 208 2-D echocardiogram: Moderate increased LVH. EF 50-55%. Severe right ventricle dilatation generalized right ventricle hypokinesis. Severe pulmonary hypertension. Moderate to severe tricuspid regurgitation. Ultrasound venous Doppler lower extremity: Limited views. No obvious DVT. Ultrasound kidney: Right kidney: Mild renal cortical thinning. Left kidney obscured. March 29: White count 20.6 hemoglobin 6.7 platelets 300 ABG: PH 7.13 pCO2 62. Potassium 5.1 BUN 40 creatinine 1.91 blood glucose 372 UA: Noted March 28: White count 9.1 hemoglobin 9.5 potassium 4.4 BUN 36 creatinine 1.37 White count 12.2 hemoglobin 11.5 platelets 510 sodium 140 potassium 4 BUN 34 creatinine 1.9 EKG tracing personally reviewed by me-normal sinus rhythm. Chest x-ray film personally reviewed by me-: Portable. No obvious infiltrate Knee x-ray/femur CT: Comminuted fracture distal metadiaphyseal femur adjacent to a knee processes. Displacement of the distal fracture fragment from the proximal fracture Assessment and plan: -Fall leading to acute Comminuted fracture distal metadiaphyseal femur adjacent to a knee processes. Displacement of the distal fracture fragment from the proximal fracture. March 28:right revision total knee replacement the distal femoral replacement age for periprosthetic distal femur fracture. By Dr. Stack. EBL 600 mL -Metabolic/anoxic encephalopathy. Much improved Neurology following. EEG negative for seizure -Acute Bilateral pulmonary embolism Eliquis -Mucous plugging with left lower lobe atelectasis. Status post bronchoscopy and removal of sticks tenacious secretions. 04/01/2023 -Acute severe blood loss anemia from surgery Patient received 3 units of blood -Hyperkalemia from acute kidney injury: Better -Thrombocytopenia. Positive heparin-induced antibody: Improved IV Argotroban, completed -Acute cor pulmonale secondary to, pulmonary embolism with acute right ventricle dilatation and moderate to severe TR. -Acute hypotensive shock from blood loss anemia.: Better Receive 3 units of blood. IV levo fed discontinued -Acute kidney injury likely cardiorenal syndrome/ATN. From hypotension and anemia.: Better Follow with nephrology. Admission creatinine was 1.29. Peaked at 2.43. Creatinine down to 0.75 -COPD in an ex-smoker DuoNeb every 4 -Morbid obesity BMI 46.6 Weight loss measures -Diabetes mellitus type 2 on oral hypoglycemic,, chronically on insulin, uncontrolled with hyperglycemia Actos. Lantus 20 units daily at bedtime. Stop Amaryl. Follow Accu-Cheks and sliding scale -Hyperlipidemia Lipitor, TriCor -Anxiety not otherwise specified Klonopin discontinued -Depression Zyprexa 5 mg daily at bedtime, Prozac 40 mg a day -Hyperuricemia Allopurinol -Critical-care myeloneuropathy PTOT -Essential hypertension, -Acute hepatitis likely ischemic, improvement -Primary osteoarthritis Pain medications when necessary -Chronic kidney disease stage III from diabetic nephropathy and hypertensive nephrosclerosis Follow renal function -DO NOT RESUSCITATE Disposition: Rehab at [facility] Plan - Discharge Summary Discharge Rx Participant: Yes New Discharge Prescriptions: New hydrALAZINE HCL [Apresoline] 50 mg PO TID tab Ipratropium-Albuterol Nebulize [Duoneb 0.5 mg-3 mg/3 ml Soln] 3 ml INHALATION RT-QID each Apixaban [Eliquis] 5 mg PO BID tab Nystatin 100,000 Unit/ml Susp [Mycostatin Oral Susp] 500,000 unit PO QID ml Sennosides [Senokot] 8.6 mg PO BID tab Fluconazole [Diflucan] 100 mg PO DAILY #7 tab Furosemide [Lasix] 40 mg PO DAILY tab amLODIPine [Norvasc] 10 mg PO DAILY tab Capsaicin Cream [Trixaicin Cream] 1 applic TOPICAL TID PRN each PRN Reason: Pain/Discomfort INSULIN ASPART (NovoLOG) [NovoLOG (formulary)] 0 unit SQ ACHS each Continue FLUoxetine HCL [PROzac] 40 mg PO DAILY OLANZapine [ZyPREXA] 5 mg PO HS Fenofibrate Nanocrystallized [Tricor] 145 mg PO DAILY allopurinoL [Zyloprim] 100 mg PO DAILY Metoprolol Succinate (ER) [Toprol XL] 25 mg PO DAILY Pioglitazone [Actos] 15 mg PO DAILY Atorvastatin [Lipitor] 10 mg PO DAILY Magnesium Oxide [Mag-Ox] 400 mg PO DAILY Mesalamine [Mesalamine Dr] 800 mg PO TID Multivit with Calcium,Iron,Min [Women's Multivitamin] 1 tab PO DAILY Ferrous Sulfate [Iron (65 MG Elemental)] 325 mg PO DAILY Changed Cinacalcet [Sensipar] 60 mg PO DAILY #0 Insulin Glargine,Hum.rec.anlog [Lantus Solostar Pen] 20 units SQ HS #0 Discontinued clonazePAM [KlonoPIN] 0.5 mg PO TID Glimepiride [Amaryl] 2 mg PO DAILY Discharge Medication List FLUoxetine HCL [PROzac] 40 mg PO DAILY 05/03/14 [History] Fenofibrate Nanocrystallized [Tricor] 145 mg PO DAILY 05/03/14 [History] OLANZapine [ZyPREXA] 5 mg PO HS 05/03/14 [History] allopurinoL [Zyloprim] 100 mg PO DAILY 10/13/20 [History] Metoprolol Succinate (ER) [Toprol XL] 25 mg PO DAILY 12/10/20 [History] Atorvastatin [Lipitor] 10 mg PO DAILY 06/11/22 [History] Multivit with Calcium,Iron,Min [Women's Multivitamin] 1 tab PO DAILY 06/11/22 [History] Pioglitazone [Actos] 15 mg PO DAILY 06/11/22 [History] Ferrous Sulfate [Iron (65 MG Elemental)] 325 mg PO DAILY 03/26/23 [History] Magnesium Oxide [Mag-Ox] 400 mg PO DAILY 03/26/23 [History] Mesalamine [Mesalamine Dr] 800 mg PO TID 03/26/23 [History] Apixaban [Eliquis] 5 mg PO BID tab 04/15/23 [Rx] Capsaicin Cream [Trixaicin Cream] 1 applic TOPICAL TID PRN each 04/15/23 [Rx] Cinacalcet [Sensipar] 60 mg PO DAILY #0 04/15/23 [Rx] Fluconazole [Diflucan] 100 mg PO DAILY #7 tab 04/15/23 [Rx] Furosemide [Lasix] 40 mg PO DAILY tab 04/15/23 [Rx] INSULIN ASPART (NovoLOG) [NovoLOG (formulary)] 0 unit SQ ACHS each 04/15/23 [Rx] Insulin Glargine,Hum.rec.anlog [Lantus Solostar Pen] 20 units SQ HS #0 04/15/23 [Rx] Ipratropium-Albuterol Nebulize [Duoneb 0.5 mg-3 mg/3 ml Soln] 3 ml INHALATION RT-QID each 04/15/23 [Rx] Nystatin 100,000 Unit/ml Susp [Mycostatin Oral Susp] 500,000 unit PO QID ml 04/15/23 [Rx] Sennosides [Senokot] 8.6 mg PO BID tab 04/15/23 [Rx] amLODIPine [Norvasc] 10 mg PO DAILY tab 04/15/23 [Rx] hydrALAZINE HCL [Apresoline] 50 mg PO TID tab 04/15/23 [Rx] Follow up Appointment(s)/Referral(s): Cabrera Persaud DO [Primary Care Provider] - 1-2 days Zaire Mitchell MD [STAFF PHYSICIAN] - 2 Weeks Neeraj Stack MD [Medical Doctor] - 1 Week Patient Instructions/Handouts: Pulmonary Embolism (DC), Heparin-Induced Thrombocytopenia (DC), ORIF of a Leg Fracture (DC) Activity/Diet/Wound Care/Special Instructions: f/u orders from ortho
[2023-04-15] MEDS ORDERED: hydrALAZINE HCL 50 MG TAB PO SCH (16:00)
--- NOTE | 2023-04-15 16:05 | P.PN ---
Subjective Progress Note Date: 04/15/23 Principal diagnosis: HIT antibody positive At today's visit patient is resting comfortably in bed. She reports feeling well. Breathing is even and unlabored. Denies shortness of breath. Denies pain. Platelets stable, 345.000. No reported episodes of bleeding. plan for discharge today to rehabilitation. Objective - Vital Signs Vital signs: Vital Signs Temp 98.3 F 04/15/23 12:29 Pulse 82 04/15/23 12:39 Resp 18 04/15/23 12:29 BP 143/65 04/15/23 12:29 Pulse Ox 95 04/15/23 12:29 FiO2 50 04/15/23 03:35 Intake & Output 04/14/23 04/15/23 04/15/23 18:59 06:59 18:59 Intake Total 480 458 Output Total 1251 500 500 Balance -771 -500 -42 Weight 111 kg Intake: Intake, IV Titration 100 Amount Magnesium Sulfate-D5w Pmx 100 1 gm In Dextrose/Water 1 100ml.bag @ 100 mls/hr IVPB Q1H [facility] Rx#: [id number] Oral 480 358 Output: Urine 1250 500 500 Stool 1 Other: Voiding Method Indwelling Catheter Indwelling Catheter Indwelling Catheter # Bowel Movements 1 3 ABP, PAP, CO, CI - Last Documented Arterial Blood Pressure 152/51 - Constitutional General appearance: Present: no acute distress, obese - EENT Eyes: Present: anicteric sclerae, EOMI ENT: Present: hearing grossly normal - Respiratory Details: breathing is even and unlabored - Cardiovascular Details: skin warm and dry - Integumentary Integumentary: Absent: cyanotic, rash - Neurologic Neurologic Comment(s): grossly intact - Musculoskeletal Musculoskeletal: Present: generalized weakness - Psychiatric Psychiatric: Present: A&O x's 3, appropriate affect, intact judgment & insight - Labs CBC & Chem 7: 04/15/23 05:24 04/15/23 05:24 Labs: Abnormal Lab Results - Last 24 Hours (Table) 04/14/23 04/14/23 04/14/23 Range/Units 14:04 14:04 16:33 RBC (3.80-5.40) m/uL Hgb (11.4-16.0) gm/dL Hct (34.0-46.0) % RDW (11.5-15.5) % Potassium (3.5-5.1) mmol/L BUN (7-17) mg/dL Glucose (74-99) mg/dL POC Glucose (mg/dL) 144 H (70-110) mg/dL Calcium (8.4-10.2) mg/dL Magnesium (1.6-2.3) mg/dL Total Protein (6.3-8.2) g/dL Albumin (3.5-5.0) g/dL U Free Lambda Light Ch (0.00-0.38) mg/dL Free Oakes LC, Quant 3.60 H (0.33-1.94) mg/dL Free Lambda LC, Quant 3.17 H (0.57-2.63) mg/dL 04/14/23 04/14/23 04/15/23 Range/Units 18:10 19:39 05:24 RBC (3.80-5.40) m/uL Hgb (11.4-16.0) gm/dL Hct (34.0-46.0) % RDW (11.5-15.5) % Potassium (3.5-5.1) mmol/L BUN (7-17) mg/dL Glucose (74-99) mg/dL POC Glucose (mg/dL) 265 H (70-110) mg/dL Calcium (8.4-10.2) mg/dL Magnesium 1.4 L (1.6-2.3) mg/dL Total Protein (6.3-8.2) g/dL Albumin (3.5-5.0) g/dL U Free Lambda Light Ch 0.45 H (0.00-0.38) mg/dL Free Oakes LC, Quant (0.33-1.94) mg/dL Free Lambda LC, Quant (0.57-2.63) mg/dL 04/15/23 04/15/23 04/15/23 Range/Units 05:24 05:24 05:57 RBC 3.14 L (3.80-5.40) m/uL Hgb 9.2 L (11.4-16.0) gm/dL Hct 28.9 L (34.0-46.0) % RDW 16.1 H (11.5-15.5) % Potassium 3.3 L (3.5-5.1) mmol/L BUN 20 H (7-17) mg/dL Glucose 155 H (74-99) mg/dL POC Glucose (mg/dL) 164 H (70-110) mg/dL Calcium 11.1 H (8.4-10.2) mg/dL Magnesium (1.6-2.3) mg/dL Total Protein 5.8 L (6.3-8.2) g/dL Albumin 3.1 L (3.5-5.0) g/dL U Free Lambda Light Ch (0.00-0.38) mg/dL Free Oakes LC, Quant (0.33-1.94) mg/dL Free Lambda LC, Quant (0.57-2.63) mg/dL 04/15/23 Range/Units 11:46 RBC (3.80-5.40) m/uL Hgb (11.4-16.0) gm/dL Hct (34.0-46.0) % RDW (11.5-15.5) % Potassium (3.5-5.1) mmol/L BUN (7-17) mg/dL Glucose (74-99) mg/dL POC Glucose (mg/dL) 140 H (70-110) mg/dL Calcium (8.4-10.2) mg/dL Magnesium (1.6-2.3) mg/dL Total Protein (6.3-8.2) g/dL Albumin (3.5-5.0) g/dL U Free Lambda Light Ch (0.00-0.38) mg/dL Free Oakes LC, Quant (0.33-1.94) mg/dL Free Lambda LC, Quant (0.57-2.63) mg/dL Microbiology - Last 24 Hours (Table) 04/01/23 10:00 Fungal Culture - Preliminary Bronchial Washings - Left Assessment and Plan (1) HIT (heparin-induced thrombocytopenia) Current Visit: Yes Status: Acute Code(s): D75.829 - HEPARIN-INDUCED T HROMBOCYTOPENIA, UNSPECIFIED SNOMED Code(s): 40541422 (2) Fracture of distal end of right femur Current Visit: Yes Status: Acute Code(s): S72.401A - UNSP FRACTURE OF LOWER END OF RIGHT FEMUR, INIT FOR CLOS FX SNOMED Code(s): 931064450 (3) Hypercalcemia Current Visit: Yes Status: Acute Priority: Medium Code(s): E83.52 - HYPE RCALCEMIA SNOMED Code(s): 06749101 Plan: HIT: -HIT antibody positive, 2.1, with 89% probability of JOEL positivity. Patient was started heparin for suspected PE s/p surgery and platelets were noted to decrease 5 days after initiation. Platelets were in the 250,000-400,000 during admission prior to drop. Platelets normal at 345,000. No reported episodes of bleeding -Decrease in platelets 5-10 days after initiation of heparin, with platelets in the 50-80K range is consistent with HIT -Serotinin release assay pending. DIC workup negative. -Heparin has been discontinued and patient was started on argatroban. Argatroban was discontinued on 04/08/28 given she was extubated, but unfortunately failed swallow study and was not restarted on any kind of therapeutic anticoagulation -Argatroban drip restarted on 04/10/2023. Repeat swallow study passed, patient transitioned to Eliquis on 04/12/23. -CT/PE on 04/10/2023 confirmed the presence of bilateral pulmonary emboli provoked by surgery. This likely led to her acute hypoxic respiratory failure requiring intubation -Will continue to monitor counts Hypercalcemia: -Calcium normal upon admission. Over the last 6 days, hypercalcemia noted. Corrected calcium 11.8. Patient denies bone pain, unintentional weight loss, and night sweats. -SPEP and immunofixation revealed small IgG kappa paraproteinemia. Serum kappa/lambda ratio normal, 1.13. Urine K/L light chains inaccurate, was not col lected over 24 hours. Small paraproteinemia likely incidental, however will r/o MGUS/MM. Further work-up pending -With calcium normal upon admission malignancy is unlikely. Hypercalcemia likely secondary to prolonged immobilization and recent fracture/surgery. Vitamin D 21.6, PTH 23.6, PTHRP pending. Will continue to follow -Zometa and calcitonin given. -Will schedule f/u in clinic upon discharge from rehab to discuss labs and further workup as needed pending workup
[2023-04-15 16:27] LABS: Glucose,Whole Blood 184 mg/dL (70-110)
[2023-04-15 16:43] VITALS: PULSE 84
== END 2023-04-15 17:09 | DRG 957 ==
LOC: EC 09:31 → UNDOADMIN 10:39 → 3SCARD 10:39 → 4SSUR 10:39 → 5NMEDONC 03-27 03:02 → 2SICU 03-28 22:21 → 5NMEDONC 03-28 22:21 → 3SCARD 04-13 22:43 → 2SICU 04-13 22:43 → UNDOADMIN 04-13 22:46 → 4SSUR 04-13 22:46 → 5NMEDONC 04-13 22:46 → 2SICU 04-13 22:46 → 3SCARD 04-13 22:46
PROVIDERS: ADMIT Hospitalist; ATTEND Hospitalist
PROC: 5A1955Z Respiratory Ventilation, Greater than 96 Consecutive Hours (ICD-10-PCS; 2023-03-28)
PROC: 30233N1 Transfusion of Nonautologous Red Blood Cells into Peripheral Vein, Percutaneous Approach (ICD-10-PCS; 2023-03-28)
PROC: 3E043XZ Introduction of Vasopressor into Central Vein, Percutaneous Approach (ICD-10-PCS; 2023-03-28)
PROC: 0SRC0J9 Replacement of Right Knee Joint with Synthetic Substitute, Cemented, Open Approach (ICD-10-PCS; principal; 2023-03-28 07:30)
PROC: 0SPC0JZ Removal of Synthetic Substitute from Right Knee Joint, Open Approach (ICD-10-PCS; principal; 2023-03-28 07:30)
PROC: 02H633Z Insertion of Infusion Device into Right Atrium, Percutaneous Approach (ICD-10-PCS; 2023-03-29)
PROC: 4A133J1 Monitoring of Arterial Pulse, Peripheral, Percutaneous Approach (ICD-10-PCS; 2023-03-29)
PROC: 0D9670Z Drainage of Stomach with Drainage Device, Via Natural or Artificial Opening (ICD-10-PCS; 2023-03-29)
PROC: 4A133B1 Monitoring of Arterial Pressure, Peripheral, Percutaneous Approach (ICD-10-PCS; 2023-03-29)
PROC: 03HY32Z Insertion of Monitoring Device into Upper Artery, Percutaneous Approach (ICD-10-PCS; 2023-03-29)
PROC: 4A133J1 Monitoring of Arterial Pulse, Peripheral, Percutaneous Approach (ICD-10-PCS; 2023-03-29)
PROC: 4A133B1 Monitoring of Arterial Pressure, Peripheral, Percutaneous Approach (ICD-10-PCS; 2023-03-29)
PROC: 03HY32Z Insertion of Monitoring Device into Upper Artery, Percutaneous Approach (ICD-10-PCS; 2023-03-29)
PROC: 3E0G76Z Introduction of Nutritional Substance into Upper GI, Via Natural or Artificial Opening (ICD-10-PCS; 2023-03-29)
PROC: 0BCB8ZZ Extirpation of Matter from Left Lower Lobe Bronchus, Via Natural or Artificial Opening Endoscopic (ICD-10-PCS; 2023-04-01)
PROC: 4A133J1 Monitoring of Arterial Pulse, Peripheral, Percutaneous Approach (ICD-10-PCS; 2023-04-03)
PROC: 4A133B1 Monitoring of Arterial Pressure, Peripheral, Percutaneous Approach (ICD-10-PCS; 2023-04-03)
PROC: 03HY32Z Insertion of Monitoring Device into Upper Artery, Percutaneous Approach (ICD-10-PCS; 2023-04-03)
PROC: 3E043GC Introduction of Other Therapeutic Substance into Central Vein, Percutaneous Approach (ICD-10-PCS; 2023-04-08)
PROC: 5A09457 Assistance with Respiratory Ventilation, 24-96 Consecutive Hours, Continuous Positive Airway Pressure (ICD-10-PCS; 2023-04-08)
DX: S72.451A Displaced supracondylar fracture without intracondylar extension of lower end of right femur, initial encounter for closed fracture (principal); G92.8 Other toxic encephalopathy; T79.1XXA Fat embolism (traumatic), initial encounter; I26.09 Other pulmonary embolism with acute cor pulmonale; K72.00 Acute and subacute hepatic failure without coma; J69.0 Pneumonitis due to inhalation of food and vomit; J96.01 Acute respiratory failure with hypoxia; R57.1 Hypovolemic shock; J96.02 Acute respiratory failure with hypercapnia; N17.0 Acute kidney failure with tubular necrosis; G72.81 Critical illness myopathy; J90 Pleural effusion, not elsewhere classified; E87.4 Mixed disorder of acid-base balance; D62 Acute posthemorrhagic anemia; G93.1 Anoxic brain damage, not elsewhere classified; E87.0 Hyperosmolality and hypernatremia; M97.11XA Periprosthetic fracture around internal prosthetic right knee joint, initial encounter; J98.11 Atelectasis; K51.90 Ulcerative colitis, unspecified, without complications; Z68.42 Body mass index [BMI] 45.0-49.9, adult; T81.718A Complication of other artery following a procedure, not elsewhere classified, initial encounter; D75.829 Heparin-induced thrombocytopenia, unspecified; J44.9 Chronic obstructive pulmonary disease, unspecified; Z66 Do not resuscitate; Z20.822 Contact with and (suspected) exposure to COVID-19; I27.20 Pulmonary hypertension, unspecified; R62.7 Adult failure to thrive; E11.22 Type 2 diabetes mellitus with diabetic chronic kidney disease; E11.42 Type 2 diabetes mellitus with diabetic polyneuropathy; N18.31 Chronic kidney disease, stage 3a; Z79.4 Long term (current) use of insulin; E66.01 Morbid (severe) obesity due to excess calories; E11.65 Type 2 diabetes mellitus with hyperglycemia; E78.5 Hyperlipidemia, unspecified; I13.10 Hypertensive heart and chronic kidney disease without heart failure, with stage 1 through stage 4 chronic kidney disease, or unspecified chronic kidney disease; E87.8 Other disorders of electrolyte and fluid balance, not elsewhere classified; E87.70 Fluid overload, unspecified; E83.42 Hypomagnesemia; E83.52 Hypercalcemia; E87.5 Hyperkalemia; E87.6 Hypokalemia; T45.515A Adverse effect of anticoagulants, initial encounter; G47.33 Obstructive sleep apnea (adult) (pediatric); I08.1 Rheumatic disorders of both mitral and tricuspid valves; G89.29 Other chronic pain; M54.50 Low back pain, unspecified; E86.1 Hypovolemia; R13.10 Dysphagia, unspecified; E79.0 Hyperuricemia without signs of inflammatory arthritis and tophaceous disease; M19.91 Primary osteoarthritis, unspecified site; M47.9 Spondylosis, unspecified; G47.00 Insomnia, unspecified; F32.A Depression, unspecified; F41.9 Anxiety disorder, unspecified; K57.90 Diverticulosis of intestine, part unspecified, without perforation or abscess without bleeding; I83.90 Asymptomatic varicose veins of unspecified lower extremity; Z79.84 Long term (current) use of oral hypoglycemic drugs; Z79.899 Other long term (current) drug therapy; Z96.653 Presence of artificial knee joint, bilateral; Z86.16 Personal history of COVID-19; Z87.891 Personal history of nicotine dependence; Z90.13 Acquired absence of bilateral breasts and nipples; Z71.3 Dietary counseling and surveillance; W01.0XXA Fall on same level from slipping, tripping and stumbling without subsequent striking against object, initial encounter; Y92.59 Other trade areas as the place of occurrence of the external cause
CPT/HCPCS: 36415; 64447; 70450; 71045; 71275; 72125; 76770; 80048; 80053; 81001; 82040; 82164; 82247; 82306; 82330; 82533; 82652; 82784; 82805; 83036; 83605; 83735; 83883; 83970; 84132; 84145; 84165; 84439; 84443; 84450; 84460; 84484; 85025; 85027; 85384; 85610; 85730; 86022; 86334; 86335; 86850; 86900; 86901; 86920; 87040; 87070; 87086; 87102; 87205; 87635; 88305; 88311; 93005; 93306; 93970; 94002; 94003; 94640; 94660; 94760; 95822; 96372; 96374; 96376; 99285

== ENCOUNTER 2023-04-30 14:35 | Observation (INO) | payer MEDICARE, OTHER ==
--- NOTE | 2023-04-30 14:57 | ED ---
SOB HPI - General Stated Complaint: RONEY Source: family, RN notes reviewed, old records reviewed, Caregiver Mode of arrival: EMS Limitations: no limitations - History of Present Illness Initial Comments: This is a 72-year-old female to the emergency department for evaluation regards to chest pain today. Patient has had persistent chest pain throughout the day with shortness of breath worsening she takes a deep breath. Recent history of blood clots on blood thinners. Patient had recent intubation, complications from hip surgery. Patient presents today with chest pain no fever although she has felt hot and cold at home. Patient presents from rehab. MD Complaint: shortness of breath, cough, chest pain, pain with inspiration, anxiety -: hour(s) Severity: moderate Severity scale (1-10): 4 Quality: aching Consistency: constant Improves With: nothing Worsens With: nothing Known History Of: COPD, asthma Context: recent URI, anxiety, recent illness Associated Symptoms: chest pain, cough, sputum production Treatments Prior to Arrival: none - Related Data Home Medications Medication Instructions Recorded Confirmed FLUoxetine HCL [PROzac] 40 mg PO DAILY 05/03/14 03/26/23 Fenofibrate Nanocrystallized 145 mg PO DAILY 05/03/14 03/26/23 [Tricor] OLANZapine [ZyPREXA] 5 mg PO HS 05/03/14 03/26/23 allopurinoL [Zyloprim] 100 mg PO DAILY 10/13/20 03/26/23 Metoprolol Succinate (ER) [Toprol 25 mg PO DAILY 12/10/20 03/26/23 XL] Atorvastatin [Lipitor] 10 mg PO DAILY 06/11/22 03/26/23 Multivit with Calcium,Iron,Min 1 tab PO DAILY 06/11/22 03/26/23 [Women's Multivitamin] Pioglitazone [Actos] 15 mg PO DAILY 06/11/22 03/26/23 Ferrous Sulfate [Iron (65 MG 325 mg PO DAILY 03/26/23 03/26/23 Elemental)] Magnesium Oxide [Mag-Ox] 400 mg PO DAILY 03/26/23 03/26/23 Mesalamine [Mesalamine Dr] 800 mg PO TID 03/26/23 03/26/23 Previous Rx's Medication Instructions Recorded Apixaban [Eliquis] 5 mg PO BID tab 04/15/23 Capsaicin Cream [Trixaicin Cream] 1 applic TOPICAL TID PRN each 04/15/23 Cinacalcet [Sensipar] 60 mg PO DAILY #0 04/15/23 Fluconazole [Diflucan] 100 mg PO DAILY #7 tab 04/15/23 Furosemide [Lasix] 40 mg PO DAILY tab 04/15/23 INSULIN ASPART (NovoLOG) [NovoLOG 0 unit SQ ACHS each 04/15/23 (formulary)] Insulin Glargine,Hum.rec.anlog 20 units SQ HS #0 04/15/23 [Lantus Solostar Pen] Ipratropium-Albuterol Nebulize 3 ml INHALATION RT-QID each 04/15/23 [Duoneb 0.5 mg-3 mg/3 ml Soln] Nystatin 100,000 Unit/ml Susp 500,000 unit PO QID ml 04/15/23 [Mycostatin Oral Susp] Sennosides [Senokot] 8.6 mg PO BID tab 04/15/23 amLODIPine [Norvasc] 10 mg PO DAILY tab 04/15/23 hydrALAZINE HCL [Apresoline] 50 mg PO TID tab 04/15/23 Allergies Allergy/AdvReac Type Severity Reaction Status Date / Time heparin AdvReac Mild Unknown Verified 04/14/23 10:04 Review of Systems ROS Statement: Those systems with pertinent positive or pertinent negative responses have been documented in the HPI. ROS Other: All systems not noted in ROS Statement are negative. 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 right knee replacement 07/23/22 Past Anesthesia/Blood Transfusion Reactions: Motion Sickness Past Psychological History: Anxiety, Depression Additional Psychological History / Comment(s): . Smoking Status: Former smoker Past Alcohol Use History: None Reported Additional Past Alcohol Use History / Comment(s): Pt atarted smoking in 1965 and quit in 2005. Past Drug Use History: None Reported - Past Family History Sister(s) Family Medical History: Myocardial Infarction (MS) Additional Family Medical History / Comment(s): TWO SISTERS HAD AN MS Father Family Medical History: Cancer Additional Family Medical History / Comment(s): Father of stomach cancer. Mother Family Medical History: Cancer Additional Family Medical History / Comment(s): . General Exam General appearance: alert, in no apparent distress, anxious Head exam: Present: atraumatic, normocephalic, normal inspection Eye exam: Present: normal appearance, PERRL, EOMI. Absent: scleral icterus, conjunctival injection, periorbital swelling ENT exam: Present: normal exam, mucous membranes moist Neck exam: Present: normal inspection. Absent: tenderness, meningismus, lymphadenopathy Respiratory exam: Present: normal lung sounds bilaterally. Absent: respiratory distress, wheezes, rales, rhonchi, stridor Cardiovascular Exam: Present: regular rate, normal rhythm, normal heart sounds. Absent: systolic murmur, diastolic murmur, rubs, gallop, clicks GI/Abdominal exam: Present: soft, normal bowel sounds. Absent: distended, tenderness, guarding, rebound, rigid Extremities exam: Present: normal inspection, full ROM, normal capillary refill. Absent: tenderness, pedal edema, joint swelling, calf tenderness Back exam: Present: normal inspection Neurological exam: Present: alert, oriented X3, CN II-XII intact Psychiatric exam: Present: normal affect, normal mood Skin exam: Present: warm, dry, intact, normal color. Absent: rash Course Vital Signs 04/30/23 04/30/23 04/30/23 15:13 16:24 16:41 Temperature 98 F Pulse Rate 97 94 100 Respiratory 18 Rate Blood Pressure 140/69 O2 Sat by Pulse 97 Oximetry - Reevaluation(s) Reevaluation #1: 04/30/23 18:31 Medical record is reviewed Reevaluation #2: 04/30/23 18:31 Patient symptoms are unchanged Reevaluation #3: 04/30/23 18:31 Patient informed of results questions are answered Reevaluation #4: 04/30/23 18:31 Was pt. sent in by a medical professional or institution? @ -no Did you speak to anyone other than the patient for history? @ -no Did you review nursing and triage notes? @ -agree Were old charts reviewed? @ -no Differential Diagnosis? @ -prior EKG interpreted by me (3pts min.)? @ -yes X-rays interpreted by me (1pt min.)? @ -no CT interpreted by me (1pt min.)? @ -no U/S interpreted by me (1pt. min.)? @ -no What testing was considered but not performed? (CT, X-rays, U/S, labs)? Why? @ -no What meds were considered but not given? Why? @ -no Did you discuss the management of the patient with other professionals? @ -no Did you reconcile home meds? @ -no Was smoking cessation discussed for >3mins.? @ -no Was critical care preformed (if so, how long)? @ -no Were there social determinants of health that impacted care today? How? (Homelessness, low income, unemployed, alcoholism, drug addiction, transportation, low edu. Level, literacy, decrease access to med. care, fdc, rehab)? @ -no Was there de-escalation of care discussed even if they declined? (Discuss DNR or withdrawal of care, Hospice)? @ -no What co-morbidities impacted this encounter? (DM, HTN, Smoking, COPD, CAD, Cancer, CVA, Hep., AIDS, mental health diagnosis, sleep apnea, morbid obesity)? @ -none Was patient admitted / discharged? @ - Undiagnosed new problem with uncertain prognosis? @ -no Drug Therapy requiring intensive monitoring for toxicity (Heparin, Nitro, Insulin, Cardizem)? @ -no Were any procedures done? @ -no Diagnosis/symptom? @ - Acute, or Chronic, or Acute on Chronic? @ -no Uncomplicated (without systemic symptoms) or Complicated (systemic symptoms)? @ -uncomplicated Side effects of treatment? @ -no Exacerbation, Progression, or Severe Exacerbation] @ -no Poses a threat to life or bodily function? @ -no Reevaluation #5: 04/30/23 18:32 Differential Chest Pain: Stable Angina, Unstable Angina, STEMI, NSTEMI Aortic Dissection, Pneumothorax, Musculoskeletal, Esophageal Spasm GERD, Cholecystitis, Pancreatitis, Zoster, this is not meant to be an all-inclusive list. Differential Dyspnea: Coronary syndrome, arrhythmia, tamponade, asthma, COPD, pulmonary embolism, pn eumonia, pneumothorax, pulmonary effusion, anaphylaxis, diabetic ketoacidosis, flailed chest, pulmonary contusion, diaphragmatic rupture, anemia, neuromuscular, this is not meant to be an all-inclusive list. - Consultations Consultation #1: Spoke with admitting physicians who agree to admit the patient Medical Decision Making - Medical Decision Making 72 female to the emergency department for evaluation patient presents today for evaluation regards to shortness of breath chest pain COPD exacerbation. Chest x-rays negative, lab values are normal except low magnesium which will be repla palma and patient will be observed overnight for cardiology to evaluate and see - Lab Data Result diagrams: 04/30/23 15:15 04/30/23 15:15 Lab Results 04/30/23 04/30/23 04/30/23 Range/Units 15:15 15:15 15:15 WBC 14.3 H (3.8-10.6) k/uL RBC 4.04 (3.80-5.40) m/uL Hgb 11.7 (11.4-16.0) gm/dL Hct 36.4 (34.0-46.0) % MCV 90.2 (80.0-100.0) fL MCH 29.0 (25.0-35.0) pg MCHC 32.2 (31.0-37.0) g/dL RDW 15.5 (11.5-15.5) % Plt Count 407 (150-450) k/uL MPV 7.6 Neutrophils % 79 % Lymphocytes % 12 % Monocytes % 5 % Eosinophils % 3 % Basophils % 0 % Neutrophils # 11.3 H (1.3-7.7) k/uL Lymphocytes # 1.7 (1.0-4.8) k/uL Monocytes # 0.8 (0-1.0) k/uL Eosinophils # 0.4 (0-0.7) k/uL Basophils # 0.0 (0-0.2) k/uL PT 12.0 (9.0-12.0) sec INR 1.2 H (<1.2) APTT 28.0 (22.0-30.0) sec Sodium 134 L (137-145) mmol/L Potassium 3.5 (3.5-5.1) mmol/L Chloride 96 L (98-107) mmol/L Carbon Dioxide 27 (22-30) mmol/L Anion Gap 11 mmol/L BUN 28 H (7-17) mg/dL Creatinine 1.20 H (0.52-1.04) mg/dL Est GFR (CKD-EPI)AfAm 52 (>60 ml/min/1.73 sqM) Est GFR (CKD-EPI)NonAf 45 (>60 ml/min/1.73 sqM) Glucose 186 H (74-99) mg/dL Lactic Ac Sepsis Rflx Plasma Lactic Acid Syd (0.7-2.0) mmol/L Calcium 8.3 L (8.4-10.2) mg/dL Magnesium 1.4 L (1.6-2.3) mg/dL Total Bilirubin 0.5 (0.2-1.3) mg/dL AST 57 H (14-36) U/L ALT 17 (4-34) U/L Alkaline Phosphatase 71 (38-126) U/L Troponin I (0.000-0.034) ng/mL NT-Pro-B Natriuret Pep pg/mL Total Protein 6.1 L (6.3-8.2) g/dL Albumin 3.6 (3.5-5.0) g/dL 04/30/23 04/30/23 04/30/23 Range/Units 15:15 15:15 15:15 WBC (3.8-10.6) k/uL RBC (3.80-5.40) m/uL Hgb (11.4-16.0) gm/dL Hct (34.0-46.0) % MCV (80.0-100.0) fL MCH (25.0-35.0) pg MCHC (31.0-37.0) g/dL RDW (11.5-15.5) % Plt Count (150-450) k/uL MPV Neutrophils % % Lymphocytes % % Monocytes % % Eosinophils % % Basophils % % Neutrophils # (1.3-7.7) k/uL Lymphocytes # (1.0-4.8) k/uL Monocytes # (0-1.0) k/uL Eosinophils # (0-0.7) k/uL Basophils # (0-0.2) k/uL PT (9.0-12.0) sec INR (<1.2) APTT (22.0-30.0) sec Sodium (137-145) mmol/L Potassium (3.5-5.1) mmol/L Chloride (98-107) mmol/L Carbon Dioxide (22-30) mmol/L Anion Gap mmol/L BUN (7-17) mg/dL Creatinine (0.52-1.04) mg/dL Est GFR (CKD-EPI)AfAm (>60 ml/min/1.73 sqM) Est GFR (CKD-EPI)NonAf (>60 ml/min/1.73 sqM) Glucose (74-99) mg/dL Lactic Ac Sepsis Rflx Plasma Lactic Acid Syd 2.5 H* (0.7-2.0) mmol/L Calcium (8.4-10.2) mg/dL Magnesium (1.6-2.3) mg/dL Total Bilirubin (0.2-1.3) mg/dL AST (14-36) U/L ALT (4-34) U/L Alkaline Phosphatase (38-126) U/L Troponin I <0.012 (0.000-0.034) ng/mL NT-Pro-B Natriuret Pep 248 pg/mL Total Protein (6.3-8.2) g/dL Albumin (3.5-5.0) g/dL 04/30/23 Range/Units 16:08 WBC (3.8-10.6) k/uL RBC (3.80-5.40) m/uL Hgb (11.4-16.0) gm/dL Hct (34.0-46.0) % MCV (80.0-100.0) fL MCH (25.0-35.0) pg MCHC (31.0-37.0) g/dL RDW (11.5-15.5) % Plt Count (150-450) k/uL MPV Neutrophils % % Lymphocytes % % Monocytes % % Eosinophils % % Basophils % % Neutrophils # (1.3-7.7) k/uL Lymphocytes # (1.0-4.8) k/uL Monocytes # (0-1.0) k/uL Eosinophils # (0-0.7) k/uL Basophils # (0-0.2) k/uL PT (9.0-12.0) sec INR (<1.2) APTT (22.0-30.0) sec Sodium (137-145) mmol/L Potassium (3.5-5.1) mmol/L Chloride (98-107) mmol/L Carbon Dioxide (22-30) mmol/L Anion Gap mmol/L BUN (7-17) mg/dL Creatinine (0.52-1.04) mg/dL Est GFR (CKD-EPI)AfAm (>60 ml/min/1.73 sqM) Est GFR (CKD-EPI)NonAf (>60 ml/min/1.73 sqM) Glucose (74-99) mg/dL Lactic Ac Sepsis Rflx Y Plasma Lactic Acid Syd (0.7-2.0) mmol/L Calcium (8.4-10.2) mg/dL Magnesium (1.6-2.3) mg/dL Total Bilirubin (0.2-1.3) mg/dL AST (14-36) U/L ALT (4-34) U/L Alkaline Phosphatase (38-126) U/L Troponin I (0.000-0.034) ng/mL NT-Pro-B Natriuret Pep pg/mL Total Protein (6.3-8.2) g/dL Albumin (3.5-5.0) g/dL - EKG Data -: EKG Interpreted by Me (EKG shows sinus tachycardia 102 NH 163 QRS 108 QTc 4:15) - Radiology Data Radiology results: report reviewed (S x-rays negative for acute disease), image reviewed Disposition Clinical Impression: S/P total knee arthroplasty, Weakness, Chest pain, Acute exacerbation of chronic obstructive pulmonary disease Disposition: ADMITTED IP TO THIS HOSP Condition: Fair Is patient prescribed a controlled substance at d/c from ED?: No Referrals: Cabrera Persaud DO [Primary Care Provider] - 1-2 days Time of Disposition: 18:30
[2023-04-30] MEDS ORDERED: IPRATROPIUM-ALBUTEROL 3 ML NEB INHALATION STA ×2 (15:16→18:29)
[2023-04-30 15:35] LABS: Basophils % (A) 0 %; Eosinophils # (A) 0.4 k/uL (0-0.7); Eosinophils % (A) 3 %; HCT 36.4 % (34.0-46.0); HGB 11.7 gm/dL (11.4-16.0); Lymphocytes # (A) 1.7 k/uL (1.0-4.8); Lymphocytes % (A) 12 %; MCHC 32.2 g/dL (31.0-37.0); MCV 90.2 fL (80.0-100.0); Mean Platelet Volume 7.6; Monocytes # (A) 0.8 k/uL (0-1.0); Monocytes % (A) 5 %; Neutrophils # (A) 11.3 k/uL (1.3-7.7); Neutrophils % (A) 79 %; Platelet Count 407 k/uL (150-450); RBC 4.04 m/uL (3.80-5.40); RDW 15.5 % (11.5-15.5); WBC 14.3 k/uL (3.8-10.6)
[2023-04-30 15:49] LABS: INR 1.2 (<1.2)
--- NOTE | 2023-04-30 15:59 | XR ---
EXAMINATION TYPE: XR chest 1V portable DATE OF EXAM: 04/30/2023 3:42 PM COMPARISON: Chest radiographs from 04/13/2023 TECHNIQUE: XR chest 1V portable Frontal view of the chest. CLINICAL INDICATION:Female, 72 years old with history of sob; FINDINGS: Lungs/Pleura: There is no evidence of pleural effusion, focal consolidation, or pneumothorax. Pulmonary vascularity: Unremarkable. Heart/mediastinum: Cardiomediastinal silhouette is enlarged and stable. Musculoskeletal: No acute osseous pathology. IMPRESSION: 1. No acute cardiopulmonary disease/process. 2. Cardiomegaly no evidence of heart failure at this time.
[2023-04-30 16:20] LABS: ALT 17 U/L (4-34); AST 57 U/L (14-36); African American GFR (CKD) 52 (>60 ml/min/1.73 sqM); Albumin 3.6 g/dL (3.5-5.0); Alkaline Phosphatase 71 U/L (38-126); Anion Gap 11 mmol/L; Blood Urea Nitrogen 28 mg/dL (7-17); Calcium 8.3 mg/dL (8.4-10.2); Carbon Dioxide 27 mmol/L (22-30); Chloride 96 mmol/L (98-107); Glucose 186 mg/dL (74-99); Magnesium 1.4 mg/dL (1.6-2.3); Non-African American GFR(CKD) 45 (>60 ml/min/1.73 sqM); Potassium 3.5 mmol/L (3.5-5.1); Sodium 134 mmol/L (137-145); Total Bilirubin 0.5 mg/dL (0.2-1.3); Total Protein 6.1 g/dL (6.3-8.2)
[2023-04-30] MEDS ORDERED: ONDANSETRON 4 MG/2 ML VIAL IVP PRN (18:27)
[2023-04-30] MEDS ORDERED: MAGNESIUM OXIDE 400 MG TAB PO STA (18:27)
[2023-04-30] MEDS ORDERED: NALOXONE 0.4 MG/ML 1 ML VIAL IV PRN (18:27)
[2023-04-30] MEDS ORDERED: MORPHINE SULFATE 4 MG/ML SYRINGE IV PRN (18:27)
[2023-04-30] MEDS ORDERED: ALBUTEROL NEBULIZED 2.5 MG/3 ML INHALATION PRN (18:29)
[2023-04-30] MEDS ORDERED: bisacodyL 10 MG SUPP RECTAL PRN (23:11)
[2023-04-30] MEDS ORDERED: MAGNESIUM HYDROXIDE 2,400 MG/10 ML CUP PO PRN (23:11)
[2023-04-30] MEDS ORDERED: ACETAMINOPHEN TAB 325 MG TAB PO PRN (23:11)
[2023-04-30] MEDS ORDERED: ONDANSETRON 4 MG TAB PO PRN (23:11)
[2023-05-01] MEDS: MAGNESIUM SULFATE-D5W PMX 1 GM in DEXTROSE/WATER 1 100ML.BAG IVPB SCH (00:01)
[2023-05-01] MEDS: OLANZapine 5 MG TAB PO SCH ×2 (00:27→21:28)
[2023-05-01 06:06] LABS: Basophils % (A) 0 %; Eosinophils # (A) 0.4 k/uL (0-0.7); Eosinophils % (A) 4 %; HCT 34.6 % (34.0-46.0); Hypochromasia Slight; Lymphocytes # (A) 1.4 k/uL (1.0-4.8); Lymphocytes % (A) 17 %; MCH 29.3 pg (25.0-35.0); MCHC 31.9 g/dL (31.0-37.0); MCV 91.8 fL (80.0-100.0); Mean Platelet Volume 7.3; Monocytes # (A) 0.5 k/uL (0-1.0); Monocytes % (A) 6 %; Neutrophils # (A) 5.9 k/uL (1.3-7.7); Neutrophils % (A) 71 %; Platelet Count 372 k/uL (150-450); RBC 3.76 m/uL (3.80-5.40); RDW 15.6 % (11.5-15.5); WBC 8.2 k/uL (3.8-10.6)
[2023-05-01 06:08] LABS: ALT 13 U/L (4-34); AST 26 U/L (14-36); African American GFR (CKD) 51 (>60 ml/min/1.73 sqM); Albumin 3.4 g/dL (3.5-5.0); Albumin/Globulin Ratio 1.4; Alkaline Phosphatase 64 U/L (38-126); Anion Gap 7 mmol/L; Blood Urea Nitrogen 25 mg/dL (7-17); Calcium 7.6 mg/dL (8.4-10.2); Carbon Dioxide 33 mmol/L (22-30); Chloride 97 mmol/L (98-107); Globulin 2.5 g/dL; Glucose 143 mg/dL (74-99); Magnesium 1.5 mg/dL (1.6-2.3); Non-African American GFR(CKD) 44 (>60 ml/min/1.73 sqM); Phosphorus 4.2 mg/dL (2.5-4.5); Sodium 137 mmol/L (137-145); Total Bilirubin 0.5 mg/dL (0.2-1.3); Total Protein 5.9 g/dL (6.3-8.2)
[2023-05-01 06:20] LABS: Glucose,Whole Blood 141 mg/dL (70-110)
--- NOTE | 2023-05-01 07:26 | XR ---
EXAMINATION TYPE: XR chest 1V DATE OF EXAM: 05/01/2023 7:01 AM COMPARISON: Chest radiograph from one day prior. TECHNIQUE: XR chest 1V Frontal view of the chest. CLINICAL INDICATION:Female, 72 years old with history of cp; FINDINGS: Lungs/Pleura: There is no evidence of pleural effusion, focal consolidation, or pneumothorax. Pulmonary vascularity: Unremarkable. Heart/mediastinum: Cardiomediastinal silhouette is enlarged and stable. Musculoskeletal: No acute osseous pathology. IMPRESSION: 1. No acute cardiopulmonary disease/process. No significant change from one day prior. 2. Cardiomegaly no evidence of heart failure at this time.
[2023-05-01] MEDS ORDERED: FUROSEMIDE 40 MG TAB PO SCH (08:00)
[2023-05-01] MEDS ORDERED: NON FORMULARY DRUG (Ensure Enlive 120 ML) PO SCH (08:00)
[2023-05-01] MEDS: BALSALAZIDE DISODIUM 750 MG CAPSULE PO SCH ×3 (08:58→21:28)
[2023-05-01] MEDS: MAGNESIUM OXIDE 400 MG TAB PO SCH (08:58)
[2023-05-01] MEDS: FLUoxetine HCL 20 MG CAP PO SCH (08:58)
[2023-05-01] MEDS: amLODIPine 10 MG TAB PO SCH (08:59)
[2023-05-01] MEDS: MULTIVITAMINS, THERA 1 EACH TAB PO SCH (08:59)
[2023-05-01] MEDS: METOPROLOL SUCCINATE (ER) 25 MG TAB.ER.24H PO SCH (08:59)
[2023-05-01] MEDS: APIXABAN 5 MG TAB PO SCH ×2 (08:59→21:28)
[2023-05-01] MEDS: allopurinoL 100 MG TAB PO SCH (08:59)
[2023-05-01] MEDS: SENNOSIDES 8.6 MG TAB PO SCH ×2 (08:59→21:28)
[2023-05-01] MEDS: CINACALCET 30 MG TAB PO SCH (08:59)
[2023-05-01] MEDS: FERROUS SULFATE 325 MG TAB PO SCH (08:59)
[2023-05-01] MEDS: hydrALAZINE HCL 50 MG TAB PO SCH ×3 (09:00→15:19)
[2023-05-01] MEDS: FENOFIBRATE 160 MG TAB PO SCH (09:00)
[2023-05-01] MEDS: PIOGLITAZONE 15 MG TAB PO SCH (09:00)
[2023-05-01] MEDS: IPRATROPIUM-ALBUTEROL 3 ML NEB INHALATION SCH ×4 (09:35→20:32)
[2023-05-01 12:06] LABS: Glucose,Whole Blood 117 mg/dL (70-110)
[2023-05-01] MEDS: clonazePAM 0.5 MG TAB PO SCH ×2 (15:01→21:28)
[2023-05-01] MEDS: SODIUM CHLORIDE 0.9% 1,000 ML IV SCH (15:03)
--- NOTE | 2023-05-01 15:15 | P.CRDCN ---
History of Present Illness Consult date: 05/01/23 Chief complaint: Chest discomfort History of present illness: The patient is a 72-year-old female patient with a past medical history significant for morbid obesity as well as diabetes and hypertension and dyslipidemia and history of pulmonary embolism in the setting of orthopedic surgery resented to the hospital complaining of chest discomfort. As a matter of fact the patient was receiving [facility] and she was in her usual state of health until earlier today when she was experiencing chest discomfort in the middle and left side of the chest as a dull kind of discomfort with no radiation to the arms or neck or shoulders or back. She does have shortness of breath with exertion according to her has not changed compared to before. No dizziness or lightheadedness and no feeling of heart racing or fluttering and no presyncope or syncope. She underwent further cardiac workup including troponin came in to be unremarkable and EKG did not show any evidence of significant ST or T-wave abnormalities concerning for ischemia. The rest of her blood work is unremarkable. She was discharged at the last hospital admission on oral anticoagulation because of present to the diagnosis of pulmonary embolism. She has been compliant with her oral anticoagulation. The echo from the last admission and that was in 2022 revealed normal LV and RV systolic function with severe pulmonary hypertension. The examination is remarkable for distant heart sounds with regular rhythm and diminished breathing sounds bilaterally. Assessment Chest discomfort which has resolved Chronic shortness of breath History of pulmonary embolism Multiple comorbid conditions including diabetes and hypertension and dy slipidemia Plan Giving the patient multiple risk factors I would advise obtain a stress test to rule out severe CAD Acute coronary syndrome was ruled out The patient will be scheduled to undergo dobutamine stress echocardiogram Follow-up with the patient Past Medical History Past Medical History: Diabetes Mellitus, Hypertension, Osteoarthritis (OA), Pneumonia, Sleep Apnea/CPAP/BIPAP Additional Past Medical History / Comment(s): covid 10/14/20-10/21/20, hypercalcemia, bilateral mastectomy but told after it was not cancer, colitis, varicose veins, "irregular urination" History of Any Multi-Drug Resistant Organisms: None Reported Past Surgical History: Breast Surgery, Hysterectomy, Joint Replacement, Tonsillectomy Additional Past Surgical History / Comment(s): Bilateral mastectomies, total L and R knee arthroplasty, colonoscopies, bilateral cataract removals/lens implants. right knee replacement 07/23/22 Past Anesthesia/Blood Transfusion Reactions: Motion Sickness Past Psychological History: Anxiety, Depression Additional Psychological History / Comment(s): . Smoking Status: Former smoker Past Alcohol Use History: None Reported Additional Past Alcohol Use History / Comment(s): Pt atarted smoking in 1964 and quit in 2005. Past Drug Use History: None Reported - Past Family History Sister(s) Family Medical History: Myocardial Infarction ([place]) Additional Family Medical History / Comment(s): TWO SISTERS HAD AN [place] Father Family Medical History: Cancer Additional Family Medical History / Comment(s): Father of stomach cancer. Mother Family Medical History: Cancer Additional Family Medical History / Comment(s): . Medications and Allergies Home Medications Medication Instructions Recorded Confirmed Type FLUoxetine HCL [PROzac] 40 mg PO DAILY@0800 05/03/14 04/30/23 History Fenofibrate Nanocrystallized 145 mg PO DAILY@0800 05/03/14 04/30/23 History [Tricor] OLANZapine [ZyPREXA] 5 mg PO HS 05/03/14 04/30/23 History allopurinoL [Zyloprim] 100 mg PO DAILY@0800 10/13/20 04/30/23 History Metoprolol Succinate (ER) [Toprol 25 mg PO DAILY@0800 12/10/20 04/30/23 History XL] Atorvastatin [Lipitor] 10 mg PO HS 06/11/22 04/30/23 History Multivit with Calcium,Iron,Min 1 tab PO DAILY@1200 06/11/22 04/30/23 History [Women's Multivitamin] Pioglitazone [Actos] 15 mg PO DAILY@0800 06/11/22 04/30/23 History Ferrous Sulfate [Iron (65 MG 325 mg PO DAILY@1200 03/26/23 04/30/23 History Elemental)] Magnesium Oxide [Mag-Ox] 400 mg PO DAILY@1200 03/26/23 04/30/23 History Mesalamine [Mesalamine Dr] 800 mg PO TID@0800,1200,1700 03/26/23 04/30/23 History Insulin Glargine,Hum.rec.anlog 20 units SQ HS #0 04/15/23 04/30/23 Rx [Lantus Solostar Pen] Ipratropium-Albuterol Nebulize 3 ml INHALATION RT-QID each 04/15/23 04/30/23 Rx [Duoneb 0.5 mg-3 mg/3 ml Soln] Acetaminophen [Tylenol] 650 mg PO Q4H PRN 04/30/23 04/30/23 History Apixaban [Eliquis] 5 mg PO BID@0800,1700 04/30/23 04/30/23 History Capsaicin Cream [Trixaicin Cream] 1 applic TOPICAL TID@0800,1400,2100 04/30/23 04/30/23 History Cinacalcet HCl [Sensipar] 60 mg PO DAILY@0800 04/30/23 04/30/23 History Ensure Enlive 120 ml PO TID@0800,1200,1700 04/30/23 04/30/23 History Furosemide [Lasix] 40 mg PO DAILY@0800 04/30/23 04/30/23 History INSULIN ASPART (NovoLOG) [NovoLOG See Protocol SQ ACHS 04/30/23 04/30/23 History (formulary)] Magnesium Hydroxide [Milk of 30 mg PO DAILY PRN 04/30/23 04/30/23 History Magnesia Concentrate] Na Phos,M-B/Na Phos,Di-Ba [Fleet 133 ml RECTAL DAILY PRN 04/30/23 04/30/23 History Adult] Ondansetron [Zofran] 4 mg PO Q6H PRN 04/30/23 04/30/23 History Sennosides [Senokot] 8.6 mg PO BID@0800,1700 04/30/23 04/30/23 History amLODIPine [Norvasc] 10 mg PO DAILY@0800 04/30/23 04/30/23 History bisacodyL 10 mg RECTAL DAILY PRN 04/30/23 04/30/23 History hydrALAZINE HCL [Apresoline] 50 mg PO Q8HR@0600,1400,2200 04/30/23 04/30/23 History Allergies Allergy/AdvReac Type Severity Reaction Status Date / Time heparin AdvReac Mild Unknown Verified 04/30/23 19:43 Physical Exam Vitals: Vital Signs Temp Pulse Pulse Resp BP BP Pulse Ox 05/01/23 14:43 98.9 F 98 16 106/64 85 L 05/01/23 09:51 100 05/01/23 09:35 92 05/01/23 07:00 98.4 F 20 122/71 97 05/01/23 01:58 98.2 F 90 18 100/57 96 04/30/23 21:40 98.7 F 72 19 135/68 98 04/30/23 18:51 106 H 04/30/23 18:40 98 04/30/23 16:41 100 04/30/23 16:24 94 04/30/23 15:13 98 F 97 18 140/69 97 Intake and Output 05/01/23 05/01/23 05/01/23 06:59 14:59 22:59 Intake Total 120 Balance 120 Intake: Oral 120 Other: Voiding Method External Catheter # Voids 1 # Bowel Movements 3 2 Results 05/01/23 05:38 05/01/23 05:38 Cardiac Enzymes 04/30/23 04/30/23 04/30/23 Range/Units 15:15 15:15 21:13 AST 57 H (14-36) U/L Troponin I <0.012 0.017 (0.000-0.034) ng/mL 05/01/23 05/01/23 Range/Units 00:00 05:38 AST 26 (14-36) U/L Troponin I 0.015 (0.000-0.034) ng/mL Coagulation 04/30/23 Range/Units 15:15 PT 12.0 (9.0-12.0) sec APTT 28.0 (22.0-30.0) sec CBC 04/30/23 05/01/23 Range/Units 15:15 05:38 WBC 14.3 H 8.2 (3.8-10.6) k/uL RBC 4.04 3.76 L (3.80-5.40) m/uL Hgb 11.7 11.0 L (11.4-16.0) gm/dL Hct 36.4 34.6 (34.0-46.0) % Plt Count 407 372 (150-450) k/uL Comprehensive Metabolic Panel 04/30/23 05/01/23 Range/Units 15:15 05:38 Sodium 134 L 137 (137-145) mmol/L Potassium 3.5 4.0 (3.5-5.1) mmol/L Chloride 96 L 97 L (98-107) mmol/L Carbon Dioxide 27 33 H (22-30) mmol/L BUN 28 H 25 H (7-17) mg/dL Creatinine 1.20 H 1.22 H (0.52-1.04) mg/dL Glucose 186 H 143 H (74-99) mg/dL Calcium 8.3 L 7.6 L (8.4-10.2) mg/dL AST 57 H 26 (14-36) U/L ALT 17 13 (4-34) U/L Alkaline Phosphatase 71 64 (38-126) U/L Total Protein 6.1 L 5.9 L (6.3-8.2) g/dL Albumin 3.6 3.4 L (3.5-5.0) g/dL Current Medications Generic Name Dose Route Start Last Admin Trade Name Freq PRN Reason Stop Dose Admin Acetaminophen 650 mg 04/30/23 23:11 Acetaminophen Tab 325 Mg Tab PO Q4H PRN general discomfort Albuterol Sulfate 5 mg 04/30/23 18:29 Albuterol Nebulized 2.5 Mg/3 Ml INHALATION RT-QID PRN Shortness Of Breath Or Wheezing Albuterol/Ipratropium 3 ml 05/01/23 08:00 05/01/23 13:02 Ipratropium-Albuterol 3 Ml Neb INHALATION Not Given RT-QID [facility] Allopurinol 100 mg 05/01/23 08:00 05/01/23 08:59 Allopurinol 100 Mg Tab PO 100 mg DAILY@0800 [facility] Administration Amlodipine Besylate 10 mg 05/01/23 08:00 05/01/23 08:59 Amlodipine 10 Mg Tab PO 10 mg DAILY@0800 [facility] Administration Apixaban 5 mg 05/01/23 09:00 05/01/23 08:59 Apixaban 5 Mg Tab PO 5 mg BID [facility] Administration Protocol Atorvastatin Calcium 10 mg 05/01/23 21:00 Atorvastatin 10 Mg Tab PO HS [facility] Balsalazide 2,250 mg 05/01/23 09:00 05/01/23 15:03 Balsalazide Disodium 750 Mg Capsule PO 2,250 mg TID [facility] Administration Bisacodyl 10 mg 04/30/23 23:11 Bisacodyl 10 Mg Supp RECTAL DAILY PRN Constipation Cinacalcet 60 mg 05/01/23 08:00 05/01/23 08:59 Cinacalcet 30 Mg Tab PO 60 mg DAILY@0800 [facility] Administration Clonazepam 0.5 mg 05/01/23 16:00 05/01/23 15:01 Clonazepam 0.5 Mg Tab PO 0.5 mg TID [facility] Administration Fenofibrate 160 mg 05/01/23 08:00 05/01/23 09:00 Fenofibrate 160 Mg Tab PO 160 mg DAILY@0800 [facility] Administration Ferrous Sulfate 325 mg 05/01/23 12:00 05/01/23 08:59 Ferrous Sulfate 325 Mg Tab PO 325 mg DAILY@1200 [facility] Administration Fluoxetine HCl 40 mg 05/01/23 08:00 05/01/23 08:58 Fluoxetine Hcl 20 Mg Cap PO 40 mg DAILY@0800 [facility] Administration Hydralazine HCl 50 mg 05/01/23 08:00 05/01/23 15:03 Hydralazine Hcl 50 Mg Tab PO 50 mg Q8HR [facility] Administration Dobutamine HCl/Dextrose 500 mg 250 mls @ 32.387 mls/hr 05/02/23 06:00 / IV Solution IV 05/02/23 23:00 .Q7H44M PRN Per Protocol Protocol 10 MCG/KG/MIN Sodium Chloride 1,000 mls @ 50 mls/hr 05/01/23 13:15 05/01/23 15:03 Saline 0.9% IV 50 mls/hr .Q20H [facility] Administration Insulin Detemir 20 unit 05/01/23 21:00 Insulin Detemir (Levemir) 100 Unit/Ml Syr SQ HS [facility] Magnesium Hydroxide 30 mg 04/30/23 23:11 Magnesium Hydroxide 2,400 Mg/10 Ml Cup PO DAILY PRN Constipation Magnesium Oxide 400 mg 05/01/23 12:00 05/01/23 08:58 Magnesium Oxide 400 Mg Tab PO 400 mg DAILY@1200 [facility] Administration Metoprolol Succinate 25 mg 05/01/23 08:00 05/01/23 08:59 Metoprolol Succinate (Er) 25 Mg Tab.Er.24h PO 25 mg DAILY@0800 [facility] Administration Multivitamins 1 each 05/01/23 12:00 05/01/23 08:59 Multivitamins, Thera 1 Each Tab PO 1 each DAILY@1200 [facility] Administration Naloxone HCl 0.2 mg 04/30/23 18:27 Naloxone 0.4 Mg/Ml 1 Ml Vial IV Q2M PRN Opioid Reversal Olanzapine 5 mg 04/30/23 23:15 05/01/23 00:27 Olanzapine 5 Mg Tab PO Not Given HS [facility] Ondansetron HCl 4 mg 04/30/23 18:27 Ondansetron 4 Mg/2 Ml Vial IVP Q8HR PRN Nausea And Vomiting Ondansetron HCl 4 mg 04/30/23 23:11 05/01/23 09:09 Ondansetron 4 Mg Tab PO 4 mg Q6H PRN Administration Nausea And Vomiting Pioglitazone HCl 15 mg 05/01/23 08:00 05/01/23 09:00 Pioglitazone 15 Mg Tab PO 15 mg DAILY@0800 [facility] Administration Senna 8.6 mg 05/01/23 09:00 05/01/23 08:59 Sennosides 8.6 Mg Tab PO 8.6 mg BID [facility] Administration Intake and Output 05/01/23 05/01/23 05/01/23 06:59 14:59 22:59 Intake Total 120 Balance 120 Intake: Oral 120 Other: Voiding Method External Catheter # Voids 1 # Bowel Movements 3 2 05/01/23 05:38 05/01/23 05:38
[2023-05-01 17:49] LABS: Glucose,Whole Blood 178 mg/dL (70-110)
--- NOTE | 2023-05-01 19:19 | P.HPIM ---
History of Present Illness H&P Date: 05/01/23 Chief Complaint: Chest pressure History of presenting complaint: very pleasant 72-year-old patient of Dr. Persaud. Chronic stable medical conditions include diabetes, hyperlipidemia, hypertension, primary osteoarthritis, peripheral neuropathy, bilateral breast cancer with bilateral mastectomy, IBS, diverticulosis, chronic low back arthritis. Anxiety depression. Diagnosis of ulcerative colitis for about 15 years. On Asacol 800 mg 3 times a day. In November 2020 did undergo colonoscopy by Dr. Moreno. Normal- appearing colon.-does follow with Dr. Angi Stallings. On an average has about 10 bowel movements a day. Present for years. Patient was recently in the hospital from March 26 through April 15. Had initially presented with comminuted fracture of distal med of life ICU femur edges into knee prosthesis. On March 28 underwent right revision total knee replacement by Dr. Stack. Subsequently patient became hypoxic encephalopathic. Was admitted to the ICU for several days. Also wasn't acute hypotensive shock. An acute kidney injury. Patient is found to have bilateral pulmonary embolism. Found to have eliquis. Secondary pulmonary hypertension. Also element of cor pulmonale. Also critical care body myeloneuropathy. Patient was then discharged to rehab. Patient also had heparin-induced antibody. Was given IV argatroban. At the bedside of present patient's and 2 daughters. At the rehab patient is able to stand. Decreased appetite. Has been having nausea. Has been having daily bowel movements. Able to communicate. Denies any pain. Yesterday patient developed pressure across the chest. [place] like a fullness. No radiation. Some shortness of breath. Some chills. Some dizziness. Patient received bronchodilators in the ER. This morning feeling better. Cardiology was consulted. Patient is a previous smoker. Patient's feeling anxious. Wanting her Klonopin that she was taking previously. Review of systems: GEN.: Tired EYES: None HEENT: None NECK: None RESPIRATORY: As above CARDIOVASCULAR: As above GASTROINTESTINAL: None GENITOURINARY: None MUSCULOSKELETAL: Joint pains LYMPHATICS: None HEMATOLOGICAL: None PSYCHIATRY: Anxious NEUROLOGICAL: Leg weakness Past medical history to include: Diabetes mellitus type 2, hyperlipidemia, hypertension, osteoarthritis, peripheral neuropathy, bilateral breast cancer with bilateral mastectomies, ulcerative colitis-colonoscopy has shown normal colon and biopsy was negative., diverticulosis, chronic low back pain and arthritis, anxiety depression. COVID- 19. Bilateral pulmonary embolism following knee surgery March 2023, heparin- induced thrombocytopenia Social history: . Smoked for 41 years stopped in 2005. No alcohol. Currently at [facility] Physical examination: VITAL SIGNS: 98, 97, 18, 140/69, 97% on nasal cannula. On presentation GENERAL: , Reclining in bed Awake, EYES: Pupils equal. Conjunctiva normal. HEENT: External appearance of nose and ears normal, oral cavity normal NECK: JVD unable to assess; masses not palpable. HEART: First and second heart sounds are normal; edema mild LUNGS: Respiratory rate increased, decreased breath sounds ABDOMEN: Soft, nontender, liver spleen not palpable, no masses palpable. PSYCH: Answering questions appropriately, NEUROLOGICAL: Power in the upper limbs 4/5. Lower limbs 2/5 MUSCULAR skeletal: Evidence of OA especially in the hands . INVESTIGATIONS, reviewed in the clinical context: May 01: White count 8.2 hemoglobin 11 platelets 332 potassium 4. 25 creatinine 1.2 to 117: White count 14.3 sodium 134 potassium 3.5 BUN 28 creatinine 1.20 lactic acid 2.5 Troponin I less than 0.012 EKG tracing personally reviewed by me-sinus tachycardia 101 Chest x-ray film personally reviewed by me-doubt infiltrate Assessment and plan: -Anterior chest wall pain. Rule out cardiac cause. Troponin negative. Consult cardiology. -Acute COPD exacerbation in the prior smoker DuoNeb 4 times a day. -March 28:right revision total knee replacement the distal femoral replacement age for periprosthetic distal femur fracture. By Dr. Stack. -Acute Bilateral pulmonary embolism, post knee surgery March 2023 Eliquis -Acute cor pulmonale secondary to, pulmonary embolism with acute right ventricle dilatation and moderate to severe TR. -Acute hypotensive shock from blood loss anemia.: Better Receive 3 units of blood. IV levo fed discontinued -Acute kidney injury likely cardiorenal syndrome/ATN. Multifactorial Factorial Creatinine recently was 0.75. Currently 1.2 to. IV fluids. Stop Lasix. -Morbid obesity BMI or 3.5 Weight loss measures -Diabetes mellitus type 2 on oral hypoglycemic,, chronically on insulin, uncontrolled with hyperglycemia Lantus 20 units daily at bedtime. Follow Accu-Cheks and sliding scale -Hyperlipidemia Lipitor, TriCor -Anxiety not otherwise specified Klonopin when necessary -Depression Zyprexa 5 mg daily at bedtime, Prozac 40 mg a day -Hyperuricemia Allopurinol -Critical-care myeloneuropathy PTOT -Essential hypertension, Hydralazine. Amlodipine. Toprol-XL. -Primary osteoarthritis Pain medications when necessary -Chronic kidney disease stage III from diabetic nephropathy and hypertensive nephrosclerosis Follow renal function -DO NOT RESUSCITATE Seen by cardiology. For stress test tomorrow. Stop Lasix. IV hydration. Repeat labs tomorrow. Care was discussed length with the patient and the family at the bedside. Questions answered. 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 right knee replacement 07/23/22 Past Anesthesia/Blood Transfusion Reactions: Motion Sickness Past Psychological History: Anxiety, Depression Additional Psychological History / Comment(s): . Smoking Status: Former smoker Past Alcohol Use History: None Reported Additional Past Alcohol Use History / Comment(s): Pt atarted smoking in 1964 and quit in 2005. Past Drug Use History: None Reported - Past Family History Sister(s) Family Medical History: Myocardial Infarction ([place]) Additional Family Medical History / Comment(s): TWO SISTERS HAD AN [place] Father Family Medical History: Cancer Additional Family Medical History / Comment(s): Father of stomach cancer. Mother Family Medical History: Cancer Additional Family Medical History / Comment(s): . Medications and Allergies Home Medications Medication Instructions Recorded Confirmed Type FLUoxetine HCL [PROzac] 40 mg PO DAILY@0800 05/03/14 04/30/23 History Fenofibrate Nanocrystallized 145 mg PO DAILY@0800 05/03/14 04/30/23 History [Tricor] OLANZapine [ZyPREXA] 5 mg PO HS 05/03/14 04/30/23 History allopurinoL [Zyloprim] 100 mg PO DAILY@0800 10/13/20 04/30/23 History Metoprolol Succinate (ER) [Toprol 25 mg PO DAILY@0800 12/10/20 04/30/23 History XL] Atorvastatin [Lipitor] 10 mg PO HS 06/11/22 04/30/23 History Multivit with Calcium,Iron,Min 1 tab PO DAILY@1200 06/11/22 04/30/23 History [Women's Multivitamin] Pioglitazone [Actos] 15 mg PO DAILY@0800 06/11/22 04/30/23 History Ferrous Sulfate [Iron (65 MG 325 mg PO DAILY@1200 03/26/23 04/30/23 History Elemental)] Magnesium Oxide [Mag-Ox] 400 mg PO DAILY@1200 03/26/23 04/30/23 History Mesalamine [Mesalamine Dr] 800 mg PO TID@0800,1200,1700 03/26/23 04/30/23 History Insulin Glargine,Hum.rec.anlog 20 units SQ HS #0 04/15/23 04/30/23 Rx [Lantus Solostar Pen] Ipratropium-Albuterol Nebulize 3 ml INHALATION RT-QID each 04/15/23 04/30/23 Rx [Duoneb 0.5 mg-3 mg/3 ml Soln] Acetaminophen [Tylenol] 650 mg PO Q4H PRN 04/30/23 04/30/23 History Apixaban [Eliquis] 5 mg PO BID@0800,1700 04/30/23 04/30/23 History Capsaicin Cream [Trixaicin Cream] 1 applic TOPICAL TID@0800,1400,2100 04/30/23 04/30/23 History Cinacalcet HCl [Sensipar] 60 mg PO DAILY@0800 04/30/23 04/30/23 History Ensure Enlive 120 ml PO TID@0800,1200,1700 04/30/23 04/30/23 History Furosemide [Lasix] 40 mg PO DAILY@0800 04/30/23 04/30/23 History INSULIN ASPART (NovoLOG) [NovoLOG See Protocol SQ ACHS 04/30/23 04/30/23 History (formulary)] Magnesium Hydroxide [Milk of 30 mg PO DAILY PRN 04/30/23 04/30/23 History Magnesia Concentrate] Na Phos,M-B/Na Phos,Di-Ba [Fleet 133 ml RECTAL DAILY PRN 04/30/23 04/30/23 History Adult] Ondansetron [Zofran] 4 mg PO Q6H PRN 04/30/23 04/30/23 History Sennosides [Senokot] 8.6 mg PO BID@0800,1700 04/30/23 04/30/23 History amLODIPine [Norvasc] 10 mg PO DAILY@0800 04/30/23 04/30/23 History bisacodyL 10 mg RECTAL DAILY PRN 04/30/23 04/30/23 History hydrALAZINE HCL [Apresoline] 50 mg PO Q8HR@0600,1400,2200 04/30/23 04/30/23 History Allergies Allergy/AdvReac Type Severity Reaction Status Date / Time heparin AdvReac Mild Unknown Verified 04/30/23 19:43 Physical Exam Vitals: Vital Signs Temp Pulse Pulse Resp BP BP Pulse Ox 05/01/23 09:51 100 05/01/23 09:35 92 05/01/23 07:00 98.4 F 20 122/71 97 05/01/23 01:58 98.2 F 90 18 100/57 96 04/30/23 21:40 98.7 F 72 19 135/68 98 04/30/23 18:51 106 H 04/30/23 18:40 98 04/30/23 16:41 100 04/30/23 16:24 94 04/30/23 15:13 98 F 97 18 140/69 97 Intake and Output 04/30/23 05/01/23 05/01/23 22:59 06:59 14:59 Other: Voiding Method External Catheter # Voids 1 # Bowel Movements 1 3 Weight 107.955 kg Results CBC & Chem 7: 05/01/23 05:38 05/01/23 05:38 Labs: Abnormal Lab Results - Last 24 Hours (Table) 04/30/23 04/30/23 04/30/23 Range/Units 15:15 15:15 15:15 WBC 14.3 H (3.8-10.6) k/uL RBC (3.80-5.40) m/uL Hgb (11.4-16.0) gm/dL RDW (11.5-15.5) % Neutrophils # 11.3 H (1.3-7.7) k/uL INR 1.2 H (<1.2) Sodium 134 L (137-145) mmol/L Chloride 96 L (98-107) mmol/L Carbon Dioxide (22-30) mmol/L BUN 28 H (7-17) mg/dL Creatinine 1.20 H (0.52-1.04) mg/dL Glucose 186 H (74-99) mg/dL POC Glucose (mg/dL) (70-110) mg/dL Plasma Lactic Acid Syd (0.7-2.0) mmol/L Calcium 8.3 L (8.4-10.2) mg/dL Magnesium 1.4 L (1.6-2.3) mg/dL AST 57 H (14-36) U/L Total Protein 6.1 L (6.3-8.2) g/dL Albumin (3.5-5.0) g/dL 04/30/23 05/01/23 05/01/23 Range/Units 15:15 05:38 05:38 WBC (3.8-10.6) k/uL RBC 3.76 L (3.80-5.40) m/uL Hgb 11.0 L (11.4-16.0) gm/dL RDW 15.6 H (11.5-15.5) % Neutrophils # (1.3-7.7) k/uL INR (<1.2) Sodium (137-145) mmol/L Chloride 97 L (98-107) mmol/L Carbon Dioxide 33 H (22-30) mmol/L BUN 25 H (7-17) mg/dL Creatinine 1.22 H (0.52-1.04) mg/dL Glucose 143 H (74-99) mg/dL POC Glucose (mg/dL) (70-110) mg/dL Plasma Lactic Acid Syd 2.5 H* (0.7-2.0) mmol/L Calcium 7.6 L (8.4-10.2) mg/dL Magnesium 1.5 L (1.6-2.3) mg/dL AST (14-36) U/L Total Protein 5.9 L (6.3-8.2) g/dL Albumin 3.4 L (3.5-5.0) g/dL 05/01/23 05/01/23 Range/Units 06:19 12:05 WBC (3.8-10.6) k/uL RBC (3.80-5.40) m/uL Hgb (11.4-16.0) gm/dL RDW (11.5-15.5) % Neutrophils # (1.3-7.7) k/uL INR (<1.2) Sodium (137-145) mmol/L Chloride (98-107) mmol/L Carbon Dioxide (22-30) mmol/L BUN (7-17) mg/dL Creatinine (0.52-1.04) mg/dL Glucose (74-99) mg/dL POC Glucose (mg/dL) 141 H 117 H (70-110) mg/dL Plasma Lactic Acid Syd (0.7-2.0) mmol/L Calcium (8.4-10.2) mg/dL Magnesium (1.6-2.3) mg/dL AST (14-36) U/L Total Protein (6.3-8.2) g/dL Albumin (3.5-5.0) g/dL Thrombosis Risk Factor Assmnt - Choose All That Apply Any of the Below Risk Factors Present?: Yes Each Factor Represents 1 point: Obesity (BMI >25), Swollen legs (current) Other Risk Factors: Yes Each Risk Factor Represents 2 Points: Age 61-74 years Other congenital or acquired thrombophilia - If yes, enter type in comment: No Thrombosis Risk Factor Assessment Total Risk Factor Score: 4 Thrombosis Risk Factor Assessment Level: Moderate Risk
[2023-05-01] MEDS ORDERED: ATORVASTATIN 10 MG TAB PO SCH (21:00)
[2023-05-01] MEDS ORDERED: INSULIN DETEMIR (LEVEMIR) 100 UNIT/ML SYR SQ SCH (21:00)
[2023-05-01 22:03] LABS: Glucose,Whole Blood 195 mg/dL (70-110)
[2023-05-02] MEDS: hydrALAZINE HCL 50 MG TAB PO SCH ×2 (01:17→09:08)
[2023-05-02] MEDS ORDERED: DOBUTamine DRIP for NUC MED 500 MG in DEXTROSE/WATER 1 250ML.BAG IV PRN (06:00)
[2023-05-02 06:21] LABS: African American GFR (CKD) 68 (>60 ml/min/1.73 sqM); Anion Gap 4 mmol/L; Blood Urea Nitrogen 19 mg/dL (7-17); Carbon Dioxide 35 mmol/L (22-30); Chloride 99 mmol/L (98-107); Glucose 110 mg/dL (74-99); Non-African American GFR(CKD) 59 (>60 ml/min/1.73 sqM); Sodium 138 mmol/L (137-145)
[2023-05-02 06:52] LABS: Glucose,Whole Blood 112 mg/dL (70-110)
[2023-05-02 08:10] VITALS: RESP 16; TEMP 98.6
[2023-05-02] MEDS: IPRATROPIUM-ALBUTEROL 3 ML NEB INHALATION SCH ×3 (08:28→15:34)
[2023-05-02] MEDS: PIOGLITAZONE 15 MG TAB PO SCH (09:06)
[2023-05-02] MEDS: CINACALCET 30 MG TAB PO SCH (09:06)
[2023-05-02] MEDS: MULTIVITAMINS, THERA 1 EACH TAB PO SCH (09:07)
[2023-05-02] MEDS: BALSALAZIDE DISODIUM 750 MG CAPSULE PO SCH (09:07)
[2023-05-02] MEDS: APIXABAN 5 MG TAB PO SCH (09:07)
[2023-05-02] MEDS: FERROUS SULFATE 325 MG TAB PO SCH (09:07)
[2023-05-02] MEDS: allopurinoL 100 MG TAB PO SCH (09:07)
[2023-05-02] MEDS: MAGNESIUM OXIDE 400 MG TAB PO SCH (09:07)
[2023-05-02] MEDS: FLUoxetine HCL 20 MG CAP PO SCH (09:08)
[2023-05-02] MEDS: SENNOSIDES 8.6 MG TAB PO SCH (09:08)
[2023-05-02] MEDS: clonazePAM 0.5 MG TAB PO SCH ×2 (09:10→15:10)
[2023-05-02 09:12] LABS: Potassium 3.9 mmol/L (3.5-5.1)
--- NOTE | 2023-05-02 10:15 | P.PN ---
Subjective Progress Note Date: 05/02/23 HISTORY OF PRESENT ILLNESS: This is a 72-year-old female who follows in the office with Dr. Britton. Patient has a history of hypertension, hyperlipidemia, diabetes, morbid obesity, and pulmonary embolism. Patient is admitted to the hospital secondary to chest pain. An acute coronary event has been ruled out. Patient examined this morning at the bedside. Patient denies any further episodes of chest pain or pressure. She denies shortness of breath. Vital signs are stable. PHYSICAL EXAM: VITAL SIGNS: Reviewed. GENERAL: Well-developed in no acute distress. NECK: Supple. No JVD or thyromegaly LUNGS: Respirations even and unlabored. Lungs essentially clear to auscultation bilaterally. HEART: Regular rate and rhythm. S1 and S2 heard. EXTREMITIES: Normal range of motion. No clubbing or cyanosis. Peripheral pulses intact. No lower extremity edema ASSESSMENT: Chest pain, acute coronary syndrome ruled out Hypertension Hyperlipidemia Diabetes History of pulmonary embolism, on Eliquis Chronic shortness of breath PLAN: 2-D echo ordered. Await results Continue current cardiac medications Patient to undergo dobutamine stress test today. If negative, she may be discharged home today from a cardiac standpoint Nurse practitioner note has been reviewed by physician. Signing provider agrees with the documented findings, assessment, and plan of care. Objective - Vital Signs Vital signs: Vital Signs Temp 98.6 F 05/02/23 07:00 Pulse 91 05/02/23 08:41 Resp 16 05/02/23 07:00 BP 111/68 05/02/23 07:00 Pulse Ox 97 05/02/23 08:31 FiO2 Intake & Output 05/01/23 05/02/23 05/02/23 18:59 06:59 18:59 Intake Total 360 Balance 360 Intake: Oral 360 Other: Voiding Method External Catheter # Voids 1 1 # Bowel Movements 2 2 - Labs CBC & Chem 7: 05/01/23 05:38 05/02/23 05:25 Labs: Abnormal Lab Results - Last 24 Hours (Table) 05/01/23 05/01/23 05/01/23 Range/Units 12:05 17:47 22:01 Carbon Dioxide (22-30) mmol/L BUN (7-17) mg/dL Glucose (74-99) mg/dL POC Glucose (mg/dL) 117 H 178 H 195 H (70-110) mg/dL Calcium (8.4-10.2) mg/dL 05/02/23 05/02/23 Range/Units 05:25 06:50 Carbon Dioxide 35 H (22-30) mmol/L BUN 19 H (7-17) mg/dL Glucose 110 H (74-99) mg/dL POC Glucose (mg/dL) 112 H (70-110) mg/dL Calcium 7.0 L (8.4-10.2) mg/dL
[2023-05-02] MEDS ORDERED: DOBUTamine DRIP for NUC MED 500 MG/250 ML BAG IV ONE (10:55)
[2023-05-02] MEDS: amLODIPine 10 MG TAB PO SCH (11:20)
[2023-05-02] MEDS: FENOFIBRATE 160 MG TAB PO SCH (11:20)
[2023-05-02] MEDS: SODIUM CHLORIDE 0.9% 1,000 ML IV SCH (11:20)
[2023-05-02] MEDS: METOPROLOL SUCCINATE (ER) 25 MG TAB.ER.24H PO SCH (11:20)
--- NOTE | 2023-05-02 11:54 | CA ---
Dobutamine Stress Echocardiogram Report Chloe Rios Age: 72 Gender: F : 1950 Exam Date: 05/02/2023 10:35 Exam Location: [facility] Ordering Physician: Michael Calolway MD ([id number]) Referring Physician: DAVID, Cat Cracker Operator: Shania Vinson RDCS Technologist: Ht (in): 62 Wt (lb): 238 Procedure CPT: Indication: Chest Pain ICD-9 Codes: Rhythm: Patient History: Atypical angina, Dyspnea/SOB, Hyperlipidemia, Hypertension, Diabetes mellitus Cardiac Medications: Medications in past 24 hours: Contrast: Total Dose (mL): Stress Results Protocol: Dobutamine Peak Dose (???g/kg/min): Duration (min:sec): Atropine:(mg) Target HR: 125 Double Product: [id number] Resting HR: 92 Resting BP: 103 / 62 Peak HR: 130 Peak BP: 97 / 52 Max Predicted HR: 147 88 % Max Predicted HR Stress Summary: The patient's target heart rate was achieved. BP Response: Normal Reason for Termination: Exceeded target heart rate (85% max predicted) Cardiac Symptoms: Test terminated after reaching target heart rate (85% max predicted) ECG Analysis Resting EKG: Stress EKG: Arrhythmia: Echo Analysis Base Echo Analysis: Low Echo Anaylsis: Peak Echo Analysis: Recovery Echo: MEASUREMENTS (Male/Female) Normal Values CONCLUSIONS Patient underwent dobutamine stress echo with infusion of dobutamine into Stage 3 for a total of 8 minutes and 34 seconds. Patient's maximum heart rate was 130 which represented 88 % age- predicted maximum heart rate. Stress EKG portion: At baseline patient's EKG showed normal sinus rhythm, normal axis, no significant ST or T wave abnormalities. At peak dobutamine infusion, EKG showed significant change from baseline. Stress echo portion: 2-D echocardiogram was performed in the parasternal long, personal short, apical 2 and apical four-chamber views at rest, low-dose, peak infusion and in recovery. At baseline, echocardiogram showed left ventricular ejection fraction 55% without wall motion abnormalities. With peak infusion, echocardiogram shows improvement in left ventricular ejection fraction, increase contractility, decrease in left ventricular end systolic dimension without wall motion abnormalities consistent with a normal response to dobutamine. Conclusions: 1. Normal stress EKG and echo response to dobutamine infusion without any evidence of inducible ischemia. Dr. Sharath De Paz DO (Electronically Signed) Final Date: 02 May 2023 11:53
[2023-05-02 12:27] LABS: Glucose,Whole Blood 106 mg/dL (70-110)
[2023-05-02 12:59] VITALS: BP 113/61; PULSE 92
--- NOTE | 2023-05-02 15:25 | P.DS ---
Providers Date of admission: 04/30/23 18:27 Expected date of discharge: 05/02/23 Attending physician: Nickolas Crespo Primary care physician: Cabrera Persaud [facility] Course: Final diagnosis -Anterior chest wall pain. Ruled out ACS, stress testing was negative -Acute COPD exacerbation in the prior smoker -Recent right revision total knee replacement the distal femoral replacement age for periprosthetic distal femur fracture. By Dr. Stack in March 2023. -Acute Bilateral pulmonary embolism, post knee surgery March 2023 -Acute cor pulmonale secondary to pulmonary embolism with acute right ventricle dilatation and moderate to severe TR. -Acute hypotensive shock from blood loss anemia, improved -Acute kidney injury likely cardiorenal syndrome/ATN. Multifactorial Factorial, improving -Morbid obesity BMI 43.5 -Diabetes mellitus type 2 on oral hypoglycemic,, chronically on insulin, uncontrolled with hyperglycemia -Hyperlipidemia -Anxiety not otherwise specified -Depression -Hyperuricemia -Critical care myeloneuropathy -Essential hypertension -Primary osteoarthritis -Chronic kidney disease stage III from diabetic nephropathy and hypertensive nephrosclerosis -DO NOT RESUSCITATE Discharge disposition Patient is being discharged in a stable condition with guarded prognosis to [facility] . Patient will follow-up with Dr. Persaud in the outpatient setting upon discharge. Patient is to follow-up with cardiology outpatient as scheduled. Total time taken is greater than 35 minutes. Hospital course This is a 72-year-old female who was recently admitted with generalized weakness along with chest pain and evaluated by cardiology underwent stress testing which was negative. Patient has been cleared for discharge to [facility] with close outpatient follow-up in 1-2 weeks. Currently no reports of chest pain, shortness of breath, or palpitations. Patient is afebrile. No reports of nausea or vomiting and patient is tolerating diet. Please refer to cardiology notes for further HPI. Patient will be going to [facility]. Guarded prognosis. Physical exam: Gen: This is a 72-year-old female who is awake, alert and oriented, well- developed, well-nourished, morbidly obese HEENT: Head is atraumatic, normocephalic. Pupils equal, round. Sclerae is anicteric. NECK: Supple. No JVD. No lymphadenopathy. No thyromegaly. LUNGS: Diminished breath sounds bilaterally with some scattered rhonchi. No intercostal retractions. HEART: Regular rate and rhythm. No murmur. ABDOMEN: Soft. Bowel sounds are present. No masses. No tenderness. EXTREMITIES: No pedal edema. No calf tenderness. NEUROLOGICAL: Patient is awake, alert and oriented x3. Cranial nerves 2 through 12 are grossly intact. Diffusely weak Please refer to medication reconciliation sheet for a list of medications. The impression and plan of care has been dictated by Ana Peres, Nurse Practitioner as directed. Dr. Michael MD I have performed a history and examination and MDM of this patient, discussed the same with the dictator, and agree with the dictator's assessment and plan as written ,documented as a scribe. Based on total visit time, I have performed more than 50% of the visit. Patient Condition at Discharge: Fair Plan - Discharge Summary Discharge Rx Participant: No New Discharge Prescriptions: New Albuterol Nebulized [Ventolin Nebulized] 5 mg INHALATION RT-QID PRN ml PRN Reason: Shortness Of Breath Or Wheezing clonazePAM [KlonoPIN] 0.5 mg PO BID PRN #4 tab PRN Reason: Anxiety Continue FLUoxetine HCL [PROzac] 40 mg PO DAILY@0800 OLANZapine [ZyPREXA] 5 mg PO HS Fenofibrate Nanocrystallized [Tricor] 145 mg PO DAILY@0800 allopurinoL [Zyloprim] 100 mg PO DAILY@0800 Metoprolol Succinate (ER) [Toprol XL] 25 mg PO DAILY@0800 Pioglitazone [Actos] 15 mg PO DAILY@0800 Atorvastatin [Lipitor] 10 mg PO HS Magnesium Oxide [Mag-Ox] 400 mg PO DAILY@1200 Mesalamine [Mesalamine Dr] 800 mg PO TID@0800,1200,1700 Ipratropium-Albuterol Nebulize [Duoneb 0.5 mg-3 mg/3 ml Soln] 3 ml INHALATION RT-QID each Ondansetron [Zofran] 4 mg PO Q6H PRN PRN Reason: Nausea And Vomiting Magnesium Hydroxide [Milk of Magnesia Concentrate] 30 mg PO DAILY PRN PRN Reason: Constipation Na Phos,M-B/Na Phos,Di-Ba [Fleet Adult] 133 ml RECTAL DAILY PRN PRN Reason: Constipation Apixaban [Eliquis] 5 mg PO BID@0800,1700 Cinacalcet HCl [Sensipar] 60 mg PO DAILY@0800 Multivit with Calcium,Iron,Min [Women's Multivitamin] 1 tab PO DAILY@1200 Ferrous Sulfate [Iron (65 MG Elemental)] 325 mg PO DAILY@1200 Insulin Glargine,Hum.rec.anlog [Lantus Solostar Pen] 20 units SQ HS #0 bisacodyL 10 mg RECTAL DAILY PRN PRN Reason: Constipation Acetaminophen [Tylenol] 650 mg PO Q4H PRN PRN Reason: general discomfort INSULIN ASPART (NovoLOG) [NovoLOG (formulary)] See Protocol SQ ACHS Ensure Enlive 120 ml PO TID@0800,1200,1700 Capsaicin Cream [Trixaicin Cream] 1 applic TOPICAL TID@0800,1400,2100 amLODIPine [Norvasc] 10 mg PO DAILY@0800 hydrALAZINE HCL [Apresoline] 50 mg PO Q8HR@0600,1400,2200 Sennosides [Senokot] 8.6 mg PO BID@0800,1700 Discontinued Furosemide [Lasix] 40 mg PO DAILY@0800 Discharge Medication List FLUoxetine HCL [PROzac] 40 mg PO DAILY@0800 05/03/14 [History] Fenofibrate Nanocrystallized [Tricor] 145 mg PO DAILY@0800 05/03/14 [History] OLANZapine [ZyPREXA] 5 mg PO HS 05/03/14 [History] allopurinoL [Zyloprim] 100 mg PO DAILY@0800 10/13/20 [History] Metoprolol Succinate (ER) [Toprol XL] 25 mg PO DAILY@0800 12/10/20 [History] Atorvastatin [Lipitor] 10 mg PO HS 06/11/22 [History] Multivit with Calcium,Iron,Min [Women's Multivitamin] 1 tab PO DAILY@1200 06/11/22 [History] Pioglitazone [Actos] 15 mg PO DAILY@0800 06/11/22 [History] Ferrous Sulfate [Iron (65 MG Elemental)] 325 mg PO DAILY@1200 03/26/23 [History] Magnesium Oxide [Mag-Ox] 400 mg PO DAILY@1200 03/26/23 [History] Mesalamine [Mesalamine Dr] 800 mg PO TID@0800,1200,1700 03/26/23 [History] Insulin Glargine,Hum.rec.anlog [Lantus Solostar Pen] 20 units SQ HS #0 04/15/23 [Rx] Ipratropium-Albuterol Nebulize [Duoneb 0.5 mg-3 mg/3 ml Soln] 3 ml INHALATION RT-QID each 04/15/23 [Rx] Acetaminophen [Tylenol] 650 mg PO Q4H PRN 04/30/23 [History] Apixaban [Eliquis] 5 mg PO BID@0800,1700 04/30/23 [History] Capsaicin Cream [Trixaicin Cream] 1 applic TOPICAL TID@0800,1400,2100 04/30/23 [History] Cinacalcet HCl [Sensipar] 60 mg PO DAILY@0800 04/30/23 [History] Ensure Enlive 120 ml PO TID@0800,1200,1700 04/30/23 [History] INSULIN ASPART (NovoLOG) [NovoLOG (formulary)] See Protocol SQ ACHS 04/30/23 [History] Magnesium Hydroxide [Milk of Magnesia Concentrate] 30 mg PO DAILY PRN 04/30/23 [History] Na Phos,M-B/Na Phos,Di-Ba [Fleet Adult] 133 ml RECTAL DAILY PRN 04/30/23 [History] Ondansetron [Zofran] 4 mg PO Q6H PRN 04/30/23 [History] Sennosides [Senokot] 8.6 mg PO BID@0800,1700 04/30/23 [History] amLODIPine [Norvasc] 10 mg PO DAILY@0800 04/30/23 [History] bisacodyL 10 mg RECTAL DAILY PRN 04/30/23 [History] hydrALAZINE HCL [Apresoline] 50 mg PO Q8HR@0600,1400,2200 04/30/23 [History] Albuterol Nebulized [Ventolin Nebulized] 5 mg INHALATION RT-QID PRN ml 05/02/23 [Rx] clonazePAM [KlonoPIN] 0.5 mg PO BID PRN #4 tab 05/02/23 [Rx] Follow up Appointment(s)/Referral(s): Cabrera Persaud DO [Primary Care Provider] - 1-2 days Angel Stallings MD [STAFF PHYSICIAN] - 1 Week Activity/Diet/Wound Care/Special Instructions: Patient is going to [facility] Activity as tolerated Recommend follow-up with primary care provider on discharge Follow-up with cardiology outpatient Continue taking medications as prescribed Discharge Disposition: TRANSFER TO SNF/ECF
== END 2023-05-02 15:41 ==
LOC: EC 14:35 → 6NMEDSUR 18:27
PROVIDERS: ADMIT Hospitalist; ATTEND Hospitalist
DX: R07.89 Other chest pain (principal); J44.1 Chronic obstructive pulmonary disease with (acute) exacerbation; R53.1 Weakness; I26.09 Other pulmonary embolism with acute cor pulmonale; G47.30 Sleep apnea, unspecified; F41.9 Anxiety disorder, unspecified; F32.A Depression, unspecified; E11.42 Type 2 diabetes mellitus with diabetic polyneuropathy; K58.9 Irritable bowel syndrome, unspecified; G89.29 Other chronic pain; M54.50 Low back pain, unspecified; E78.5 Hyperlipidemia, unspecified; R57.9 Shock, unspecified; D62 Acute posthemorrhagic anemia; N17.9 Acute kidney failure, unspecified; E11.65 Type 2 diabetes mellitus with hyperglycemia; E79.0 Hyperuricemia without signs of inflammatory arthritis and tophaceous disease; M19.91 Primary osteoarthritis, unspecified site; I13.10 Hypertensive heart and chronic kidney disease without heart failure, with stage 1 through stage 4 chronic kidney disease, or unspecified chronic kidney disease; N18.30 Chronic kidney disease, stage 3 unspecified; E11.22 Type 2 diabetes mellitus with diabetic chronic kidney disease; E66.01 Morbid (severe) obesity due to excess calories; Z66 Do not resuscitate; Z68.41 Body mass index [BMI] 40.0-44.9, adult; Z85.3 Personal history of malignant neoplasm of breast; Z86.711 Personal history of pulmonary embolism; Z87.891 Personal history of nicotine dependence; Z90.13 Acquired absence of bilateral breasts and nipples; Z96.653 Presence of artificial knee joint, bilateral; Z79.899 Other long term (current) drug therapy; Z79.84 Long term (current) use of oral hypoglycemic drugs; Z79.01 Long term (current) use of anticoagulants; Z79.4 Long term (current) use of insulin; Z20.822 Contact with and (suspected) exposure to COVID-19
CPT/HCPCS: 96372; 99285; 36415; 94640 ×6; 94760; 93005; 93351; 97162; 97166; 83880; 80053 ×2; 80048; 83605; 83735 ×2; 84100; 84484 ×2; 85025 ×2; 85610; 85730; 87635; 71045 ×2; G0378 ×4; J1250